=== PATIENT | female | born 1950 | race Caucasian/White ===

== ENCOUNTER → 2016-12-09 | Day surgery (SDC) | payer OTHER ==
[2016-11-19 12:24] VITALS: Ht 165.1 cm; Wt 59.1 kg
[~2016-12-09] VITALS: Ht 165.1 cm; Wt 59.1 kg
[~2016-12-09] MED LIST: 500ML BSS 0.3ML EPI 1:1000PF IRRIG ONE; ACETAMINOPHEN 325 MG TAB PO PRN; AMVISC PLUS 0.8ML SYRINGE INT OCU ONE; ASPI81TA28 PO; ATOR-22 PO; ATOR-24 PO; ATROPINE SULFATE 0.1 MG/ML 5ML SYR IV PRN; BSS FLUSH ONE; CALC500C70 PO; CLOP1TAB15 PO; EpHEDrine SULFATE INJ 50 MG/ML AMP IV PRN; EpINEphrine INJ 1MG/ML AMP 1 MG/ML AMP ONE; LACTATED RINGER'S 1000ML 500 ML IV SCH; LEVO50TA PO; LIDOCAINE 3.5% OPH GEL PER APPLICATION CHARGE ONE; LIDOCAINE HCL 1% MPF 2 ML VIAL ONE; LISI10TA PO; MIDAZOLAM HCL 1 MG/ML 2ML VIAL ONE; MULT-506 PO; OCUCOAT 1 ML SOLN IO ONE; OMEG10002 PO; PHENYLEPHRINE HCL 10% OP SOLN PER DROP CHARGE OPR SCH; POVIDONE-IODINE OP SOLN 30 ML BTL ONE; PRED1SUS3 OPR; PROPARACAINE 0.5% OP SOLN PER DROP CHARGE OPR SCH; SULF800T23 PO; TOBRAMYCIN/DEXAMETHASONE OPH OINT PER APPLN CHARGE ONE
[2016-12-09] MEDS: PHENYLEPHRINE HCL 2.5% OP SOLN PER DROP CHARGE OPR SCH ×2 (09:27→09:32)
[2016-12-09] MEDS: TROPICAMIDE 1% OP SOLN PER DROP CHARGE OPR SCH ×2 (09:28→09:33)
[2016-12-09] MEDS: CYCLOPENTOLATE HCL 1% OP SOLN PER DROP CHARGE OPR SCH ×2 (09:29→09:34)
[2016-12-09] MEDS: KETOROLAC 0.5% OP SOLN PER DROP CHARGE OPR SCH ×2 (09:30→09:35)
[2016-12-09] MEDS: GATIFLOXACIN OP SOLN PER DROP CHARGE OPR SCH ×2 (09:31→09:41)
--- NOTE | 2016-12-09 09:47 | History & Physical Bridge - [place] ---
H&P Re-Evaluation Bridge Note: I have examined the patient, reviewed the History & Physical and in the interval since the performance of the History & Physical I have noted the following changes of clinical significance: Diagnosis: Right Cataract Procedure: Right Cataract Removal with Lens Implant No changes noted
--- NOTE | 2016-12-09 10:29 | Discharge Instructions-SurgCtr ---
Discharge Instructions Date of Service Dec 09, 2016. Visit Reason for Visit: Right Cataract Discharge Discharge Diagnosis / Problem: cataract Discharge Goals Goal(s): Improve function Medications Stopped Medications Name(s): Patient is unsure of when she took her medications last but she did take them regularly yesterday morning. Activity Recommendations Activity Limitations: per Instructions/Follow-up section Anesthesia . Post Anesthesia Instructions: If you have had General Anesthesia or IV Sedation: * Do not drive today. * Resume driving when surgeon permits. * Do not make important decisions or sign legal documents today. * Call surgeon for: 1. Temperature elevations greater than 101 degrees F. 2. Uncontrollable pain. 3. Excessive bleeding. 4. Persistent nausea and vomiting. 5. Medication intolerance (nausea, vomiting or rash). * For nausea and vomiting use only clear liquids such as: tea, soda, bouillon until nausea subsides, then gradually increase diet as tolerated. * If you have any concerns or questions, call your surgeon's office. If physician is unavailable and it is an emergency, call 911 or go to the nearest emergency room. . Instructions / Follow-Up Instructions / Follow-Up ACTIVITY RECOMMENDATIONS: * No strenuous lifting, jogging or running for 4 days * No swimming or yard work for 1 week. * Limited bending is permitted, such as putting on shoes. RETURN TO SCHOOL/WORK: No work until seen by physician in office. MEDICATIONS: Resume previous medications unless instructed otherwise by your surgeon. This includes eye drops for glaucoma. Zymaxid/Gatifloxacin (andrew cap) - one drop every 2 hours until bedtime Nevanac/Ilevro/Prolensa/Ketorolac (reeder cap) - one drop every 4 hours until bedtime Prednisolone (white/pink cap, SHAKE WELL) - one drop every 2 hours until bedtime Starting tomorrow - all 3 drops every 4 hours until seen in the office Optive drops - as needed for discomfort SPECIAL CARE INSTRUCTIONS: * Wear eyeshield when sleeping, for four nights. * You may wear your own glasses or sunglasses while awake. * You may read or watch TV * You may shower and wash your face, but be gentle around the eye and pat dry. * Blurry vision and mild irritation are normal. * Call office if pain is more severe or vision becomes dark at . FOLLOW UP VISIT: Follow-up with Dr Escalona tomorrow. Diet Recommendations Home Diet: resume previous diet Procedures Procedures Performed: Right Cataract Phacoemulsification With Intraocular Lens Implant Pending Studies Studies pending at discharge: no Medical Emergencies . Who to Call and When: Medical Emergencies: If at any time you feel your situation is an emergency, please call 911 immediately. . Non-Emergent Contact Non-Emergency issues call your: Candle Pourer . . "Provider Documentation" section prepared by Maurisio Escalona.
--- NOTE | 2016-12-09 10:30 | [facility] Operative Report ---
Operative Report Date of Service Dec 09, 2016. Operative Report 1. PREOPERATIVE DIAGNOSIS: Cataract of the right eye. 2. POSTOPERATIVE DIAGNOSIS: Same. 3. PROCEDURE: Phacoemulsification with intraocular lens implantation of the right eye. SURGEON: Dr. Maurisio Escalona. ANESTHESIA: Topical Lidocaine gel, 1% Non- Preserved intracameral Lidocaine, and monitored intravenous sedation. INDICATIONS FOR THE PROCEDURE: The patient is a 66 - year-old female with a history of cataract of the right eye causing significant visual impairment. The details of the proposed procedure were explained to the patient who asked appropriate questions and following discussion of all risks, benefits and alternatives agreed to have the procedure done. 4. OPERATION AND FINDINGS: DESCRIPTION OF PROCEDURE: After informed consent was obtained, the patient was brought to the Operating Room at the [facility]. The patient was placed in a supine position and then the right eye was prepped and draped in the usual sterile fashion for intraocular surgery. A drop of topical Lidocaine gel was placed in the operative eye. A wire lid speculum was then placed in the fornices. A corneal paracentesis was then created temporally. The Non-Preserved Lidocaine was then instilled into the anterior chamber. The anterior chamber was then pressurized with viscoelastic. A 2.0 mm clear corneal incision was then created temporally. A cystotome was inserted into the anterior chamber and used to create a tear in the anterior lens capsule. This capsular tear was then used to create a small flap and the flap was dragged in a counterclockwise direction in order to create a continuous curvilinear capsulorrhexis. Hydrodissection was accomplished with balanced salt solution. Phacoemulsification of the lens nucleus was then performed in a standard [id number] technique. The phaco time was 18 seconds with an average power of 15 %. The remaining cortical material was removed using irrigation aspiration. The capsular bag was then filled with viscoelastic. A Bausch & Lomb MI60L +24.5 diopters lens was then loaded into the injector and injected into the capsular bag. The remaining viscoelastic was removed with the irrigation aspiration handpiece. The wound was hydrated and then checked and found to be watertight. The intraocular pressure was checked and found to be adequate. The wire lid speculum was removed and the patient's face was cleaned and dried. TobraDex ointment was placed in the inferior fornix. The patient was discharged to the Recovery Room having tolerated the procedure well. There were no complications. The patient will be seen tomorrow in the office for follow-up. I attest to the content of the Intraoperative Record and any orders documented therein. Any exceptions are noted below.
[2016-12-09 10:33] VITALS: TEMP 36.6
--- NOTE | 2016-12-09 10:52 | Anesthesia Progress Nt - [facility] ---
Anesthesia Post Op Note Date & Time Dec 09, 2016 at 10:51 Vital Signs Pain Intensity: 0 Vital Signs Past 12 Hours Date Time Temp Pulse Resp B/P Pulse Ox O2 Delivery O2 Flow Rate FiO2 12/09/16 10:33 36.6 64 16 129/82 100 Room Air 12/09/16 09:17 36.5 68 18 141/87 97 Room Air Notes Mental Status: alert / awake / arousable, participated in evaluation Pt Amnestic to Procedure: Yes Nausea / Vomiting: adequately controlled Pain: adequately controlled Airway Patency, RR, SpO2: stable & adequate BP & HR: stable & adequate Hydration State: stable & adequate Anesthetic Complications: no major complications apparent
[2016-12-09 10:56] VITALS: BP 135/80; PULSE 70; O2SAT 96
== END | disposition home or self-care (01) ==
LOC: X.SURG 08:54
PROVIDERS: ATTEND Ophthalmology
DX: H26.9 Unspecified cataract (principal); Z79.02 Long term (current) use of antithrombotics/antiplatelets; Z79.82 Long term (current) use of aspirin; Z79.899 Other long term (current) drug therapy; I10 Essential (primary) hypertension; E78.00 Pure hypercholesterolemia, unspecified; C91.01 Acute lymphoblastic leukemia, in remission; Z86.73 Personal history of transient ischemic attack (TIA), and cerebral infarction without residual deficits

== ENCOUNTER → 2017-01-06 | Day surgery (SDC) | payer OTHER ==
[2016-12-21 08:20] VITALS: Ht 165.1 cm; Wt 59.1 kg
[~2017-01-06] VITALS: Ht 165.1 cm; Wt 59.1 kg
[~2017-01-06] MED LIST changes: +FENTANYL CITRATE INJ 50 MCG/1 ML 2 ML VIAL IV PRN; +FLUMAZENIL 0.1 MG/1 ML 10 ML VIAL IV PRN; +HYDROmorphone INJ 2 MG/ML SYR/VIAL IV PRN; +LABETALOL HCL IV 5 MG/ML 20ML IV PRN; +MEPERIDINE HCL 25 MG/ML CARP IV PRN; +NALOXONE HCL 0.4 MG/1 ML VIAL/CARP IV PRN; +ONDANSETRON INJ 2 MG/ML 2 ML VIAL IV PRN; +PHENYLEPHRINE 100MCG/ML 5ML SYR IV PRN; -PHENYLEPHRINE HCL 10% OP SOLN PER DROP CHARGE OPR SCH; +PROPARACAINE 0.5% OP SOLN PER DROP CHARGE OPL SCH; -PROPARACAINE 0.5% OP SOLN PER DROP CHARGE OPR SCH
[2017-01-06] MEDS: PHENYLEPHRINE HCL 2.5% OP SOLN PER DROP CHARGE OPL SCH ×2 (09:15→09:20)
[2017-01-06] MEDS: TROPICAMIDE 1% OP SOLN PER DROP CHARGE OPL SCH ×2 (09:16→09:21)
[2017-01-06] MEDS: CYCLOPENTOLATE HCL 1% OP SOLN PER DROP CHARGE OPL SCH ×2 (09:17→09:22)
[2017-01-06] MEDS: KETOROLAC 0.5% OP SOLN PER DROP CHARGE OPL SCH ×2 (09:18→09:23)
[2017-01-06] MEDS: GATIFLOXACIN OP SOLN PER DROP CHARGE OPL SCH ×2 (09:19→09:29)
--- NOTE | 2017-01-06 09:40 | History & Physical Bridge - [place] ---
H&P Re-Evaluation Bridge Note: I have examined the patient, reviewed the History & Physical and in the interval since the performance of the History & Physical I have noted the following changes of clinical significance: Diagnosis: Left Cataract Procedure: Left Cataract Removal with Lens Implant No changes noted
--- NOTE | 2017-01-06 10:24 | Discharge Instructions-SurgCtr ---
Discharge Instructions Date of Service January 06, 2017. Visit Reason for Visit: Cataract Left Eye Discharge Discharge Diagnosis / Problem: cataract Discharge Goals Goal(s): Improve function Activity Recommendations Activity Limitations: per Instructions/Follow-up section Anesthesia . Post Anesthesia Instructions: If you have had General Anesthesia or IV Sedation: * Do not drive today. * Resume driving when surgeon permits. * Do not make important decisions or sign legal documents today. * Call surgeon for: 1. Temperature elevations greater than 101 degrees F. 2. Uncontrollable pain. 3. Excessive bleeding. 4. Persistent nausea and vomiting. 5. Medication intolerance (nausea, vomiting or rash). * For nausea and vomiting use only clear liquids such as: tea, soda, bouillon until nausea subsides, then gradually increase diet as tolerated. * If you have any concerns or questions, call your surgeon's office. If physician is unavailable and it is an emergency, call 911 or go to the nearest emergency room. . Instructions / Follow-Up Instructions / Follow-Up ACTIVITY RECOMMENDATIONS: * No strenuous lifting, jogging or running for 4 days * No swimming or yard work for 1 week. * Limited bending is permitted, such as putting on shoes. RETURN TO SCHOOL/WORK: No work until seen by physician in office. MEDICATIONS: Resume previous medications unless instructed otherwise by your surgeon. This includes eye drops for glaucoma. Zymaxid/Gatifloxacin (andrew cap) - one drop every 2 hours until bedtime Nevanac/Ilevro/Prolensa/Ketorolac (reeder cap) - one drop every 4 hours until bedtime Prednisolone (white/pink cap, SHAKE WELL) - one drop every 2 hours until bedtime Starting tomorrow - all 3 drops every 4 hours until seen in the office Optive drops - as needed for discomfort SPECIAL CARE INSTRUCTIONS: * Wear eyeshield when sleeping, for four nights. * You may wear your own glasses or sunglasses while awake. * You may read or watch TV * You may shower and wash your face, but be gentle around the eye and pat dry. * Blurry vision and mild irritation are normal. * Call office if pain is more severe or vision becomes dark at . FOLLOW UP VISIT: Follow-up with Dr Escalona tomorrow. Diet Recommendations Home Diet: resume previous diet Procedures Procedures Performed: Left Cataract Phacoemulsification With Intraocular Lens Implant Pending Studies Studies pending at discharge: no Medical Emergencies . Who to Call and When: Medical Emergencies: If at any time you feel your situation is an emergency, please call 911 immediately. . Non-Emergent Contact Non-Emergency issues call your: Principal Research Economist . . "Provider Documentation" section prepared by Maurisio Escalona. .
--- NOTE | 2017-01-06 10:25 | [facility] Operative Report ---
Operative Report Date of Service January 06, 2017. Operative Report 1. PREOPERATIVE DIAGNOSIS: Cataract of the left eye. 2. POSTOPERATIVE DIAGNOSIS: Same. 3. PROCEDURE: Phacoemulsification with intraocular lens implantation of the left eye. SURGEON: Dr. Maurisio Escalona. ANESTHESIA: Topical Lidocaine gel, 1% Non- Preserved intracameral Lidocaine, and monitored intravenous sedation. INDICATIONS FOR THE PROCEDURE: The patient is a 66 - year-old female with a history of cataract of the left eye causing significant visual impairment. The details of the proposed procedure were explained to the patient who asked appropriate questions and following discussion of all risks, benefits and alternatives agreed to have the procedure done. 4. OPERATION AND FINDINGS: DESCRIPTION OF PROCEDURE: After informed consent was obtained, the patient was brought to the Operating Room at the [facility]. The patient was placed in a supine position and then the left eye was prepped and draped in the usual sterile fashion for intraocular surgery. A drop of topical Lidocaine gel was placed in the operative eye. A wire lid speculum was then placed in the fornices. A corneal paracentesis was then created temporally. The Non-Preserved Lidocaine was then instilled into the anterior chamber. The anterior chamber was then pressurized with viscoelastic. A 2.0 mm clear corneal incision was then created temporally. A cystotome was inserted into the anterior chamber and used to create a tear in the anterior lens capsule. This capsular tear was then used to create a small flap and the flap was dragged in a counterclockwise direction in order to create a continuous curvilinear capsulorrhexis. Hydrodissection was accomplished with balanced salt solution. Phacoemulsification of the lens nucleus was then performed in a standard [id number] technique. The phaco time was 17 seconds with an average power of 16 %. The remaining cortical material was removed using irrigation aspiration. The capsular bag was then filled with viscoelastic. A Bausch & Lomb MI60L +26.0 diopters lens was then loaded into the injector and injected into the capsular bag. The remaining viscoelastic was removed with the irrigation aspiration handpiece. The wound was hydrated and then checked and found to be watertight. The intraocular pressure was checked and found to be adequate. The wire lid speculum was removed and the patient's face was cleaned and dried. TobraDex ointment was placed in the inferior fornix. The patient was discharged to the Recovery Room having tolerated the procedure well. There were no complications. The patient will be seen tomorrow in the office for follow-up. I attest to the content of the Intraoperative Record and any orders documented therein. Any exceptions are noted below.
[2017-01-06 10:26] VITALS: TEMP 36.5
--- NOTE | 2017-01-06 10:44 | Anesthesia Progress Nt - [facility] ---
Anesthesia Post Op Note Date & Time January 06, 2017 at 10:44 Vital Signs Pain Intensity: 0 Vital Signs Past 12 Hours Date Time Temp Pulse Resp B/P Pulse Ox O2 Delivery O2 Flow Rate FiO2 01/06/17 10:26 36.5 64 16 118/78 100 Room Air 01/06/17 09:24 36.4 69 16 148/81 95 Room Air Notes Mental Status: alert / awake / arousable, participated in evaluation Pt Amnestic to Procedure: Yes Nausea / Vomiting: adequately controlled Pain: adequately controlled Airway Patency, RR, SpO2: stable & adequate BP & HR: stable & adequate Hydration State: stable & adequate Anesthetic Complications: no major complications apparent
[2017-01-06 11:00] VITALS: BP 120/75; PULSE 66; O2SAT 99
== END | disposition home or self-care (01) ==
LOC: X.SURG 08:40
PROVIDERS: ATTEND Ophthalmology
DX: H25.9 Unspecified age-related cataract (principal); C91.01 Acute lymphoblastic leukemia, in remission; I12.9 Hypertensive chronic kidney disease with stage 1 through stage 4 chronic kidney disease, or unspecified chronic kidney disease; N18.3 Chronic kidney disease, stage 3 (moderate); E03.9 Hypothyroidism, unspecified; J31.0 Chronic rhinitis; I87.2 Venous insufficiency (chronic) (peripheral); I69.398 Other sequelae of cerebral infarction; Z87.39 Personal history of other diseases of the musculoskeletal system and connective tissue; Z79.02 Long term (current) use of antithrombotics/antiplatelets; Z79.82 Long term (current) use of aspirin; Z79.899 Other long term (current) drug therapy

== ENCOUNTER 2017-02-10 00:44 | Emergency (ER) | payer OTHER ==
[~2017-02-10] VITALS: Ht 165.1 cm; Wt 59.0 kg
[~2017-02-10 00:44] MED LIST changes: -500ML BSS 0.3ML EPI 1:1000PF IRRIG ONE; -ACETAMINOPHEN 325 MG TAB PO PRN; -AMVISC PLUS 0.8ML SYRINGE INT OCU ONE; -ATOR-24 PO; -ATROPINE SULFATE 0.1 MG/ML 5ML SYR IV PRN; -BSS FLUSH ONE; -EpHEDrine SULFATE INJ 50 MG/ML AMP IV PRN; -EpINEphrine INJ 1MG/ML AMP 1 MG/ML AMP ONE; -FENTANYL CITRATE INJ 50 MCG/1 ML 2 ML VIAL IV PRN; -FLUMAZENIL 0.1 MG/1 ML 10 ML VIAL IV PRN; -HYDROmorphone INJ 2 MG/ML SYR/VIAL IV PRN; -LABETALOL HCL IV 5 MG/ML 20ML IV PRN; -LACTATED RINGER'S 1000ML 500 ML IV SCH; -LIDOCAINE 3.5% OPH GEL PER APPLICATION CHARGE ONE; -LIDOCAINE HCL 1% MPF 2 ML VIAL ONE; -MEPERIDINE HCL 25 MG/ML CARP IV PRN; -MIDAZOLAM HCL 1 MG/ML 2ML VIAL ONE; -NALOXONE HCL 0.4 MG/1 ML VIAL/CARP IV PRN; -OCUCOAT 1 ML SOLN IO ONE; -ONDANSETRON INJ 2 MG/ML 2 ML VIAL IV PRN; -PHENYLEPHRINE 100MCG/ML 5ML SYR IV PRN; -POVIDONE-IODINE OP SOLN 30 ML BTL ONE; -PROPARACAINE 0.5% OP SOLN PER DROP CHARGE OPL SCH; -SULF800T23 PO; -TOBRAMYCIN/DEXAMETHASONE OPH OINT PER APPLN CHARGE ONE
[2017-02-10 00:48] VITALS: TEMP 37.1; Ht 165.1 cm; Wt 59.0 kg
[2017-02-10] MEDS ORDERED: SODIUM CHLORIDE 0.9% 500ML 500 ML IV STA (01:11)
[2017-02-10] MEDS ORDERED: ACETAMINOPHEN 500 MG TAB PO STA (01:11)
[2017-02-10 01:49] LABS: BASO % 0.3 %; BASO ABS # 0.02 K/uL (0-0.2); COMPLETE YES; EOS % 2.1 %; HEMATOCRIT 35.8 % (37-47); IG% 0.2 %; LYMPH % 16.9 %; MEAN CELL VOLUME 89.7 fL (80-100); MEAN CORPUSCULAR HEMOGLOBIN 30.1 pg (25-34); MEAN CORPUSCULAR HGB CONC 33.5 g/dl (32-36); MEAN PLATELET VOLUME 8.8 fL (7.4-10.4); MONO % 13.5 %; PLATELET COUNT 258 K/uL (130-400); RED BLOOD COUNT 3.99 M/uL (4.2-5.4); WHITE BLOOD COUNT 6.52 K/uL (4.8-10.8)
[2017-02-10 01:58] LABS: VEN BLD GAS O2 SATURATION 93.8 %; VEN BLOOD GAS BASE EXCESS 1.7 mmol/L
[2017-02-10] MEDS ORDERED: ATOR-24 PO (02:06)
[2017-02-10 02:08] LABS: BUN/CREATININE RATIO 30.5 (10-20); CREATININE 1.2 mg/dl (0.60-1.20); MAGNESIUM 2.1 mg/dl (1.8-2.4); POTASSIUM 3.9 mmol/L (3.5-5.1)
[2017-02-10 03:24] VITALS: O2SAT 93
--- NOTE | 2017-02-10 03:39 | EMERGENCY ROOM VISIT NOTE ---
ED Visit Note First contact with patient: 00:57 I saw this patient in conjunction with Michael Alcala PA-C. I agree with his decision making and treatment plan.
[2017-02-10 04:11] LABS: URINE APPEARANCE CLOUDY (CLEAR); URINE BILIRUBIN NEG (NEG); URINE COLOR YELLOW; URINE EPITHELIAL CELL AUTO 0-5 /lpf (0-5); URINE NITRITE POS (NEG); URINE SPECIFIC GRAVITY 1.019 (1.000-1.030); UROBILINOGEN NEG (NEG); ZZUR CULT IF INDIC CLEAN CATCH YES
[2017-02-10 04:14] LABS: MANUAL MICROSCOPIC REQUIRED? NO; REVIEW REQ? YES
[2017-02-10] MEDS ORDERED: SEPTRA DS HOME PACK 1 EA VIAL PO ONE (04:45)
[2017-02-10] MEDS ORDERED: SULF800T23 PO (04:50)
[2017-02-10 05:05] VITALS: BP 106/64; PULSE 67; O2SAT 93
--- NOTE | 2017-02-10 05:24 | EMERGENCY ROOM VISIT NOTE ---
History First contact with patient: 00:57 Chief Complaint: ALTERED MENTAL STATUS Stated Complaint: DISOREINTED, CONFUSED Nursing Triage Summary: states developed a cough and sore throat last evening, and developed progressive weakness today. History of Present Illness The patient is a 66 year old female who presents to the Emergency Room with complaints of worsening weakness and fatigue over the past one day. The patient is accompanied by her who provides most of the history. The patient was at her normal state of health the past several days, but developed a cough and sore throat. She has not been running a fever. She has been eating and drinking as normal. She does not report changes in bathroom usage. The patient is usually healthy and denies diabetes and cardiopulmonary disease. She rates her current discomfort a 2/10, and states that she is here because her was going to call an ambulance. She does not report numbness or paresthesias. No lightheadedness or dizziness. Review of Systems More than 10 systems were reviewed and otherwise negative with the exception of history of present illness. Past Medical/Surgical History Medical Problems: (1) Benign hypertension (2) Cerebrovascular disease (3) Dementia (4) History of acute lymphoid leukemia (5) History of adenomatous polyp of colon (6) History of TIA (transient ischemic attack) (7) Meningioma Surgical Problems: (1) Status post bilateral hip replacements Family History Cancer Hypertension Social History Smoking Status: Never Smoker Alcohol Use: none Drug Use: none Marital Status: Housing Status: lives with family Occupation Status: employed Current/Historical Medications Scheduled Aspirin (Aspirin Ec), 81 MG PO QAM Atorvastatin (Lipitor), 40 MG PO DAILY Calcium/Vitamin D (Os-Tobias 500 Plus D), 1 TAB PO QAM Clopidogrel (Plavix), 75 MG PO QAM Levothyroxine Sodium (Synthroid), 50 MCG PO QAM Lisinopril (Prinivil), 10 MG PO QAM Multivitamin (Multivitamin), 1 TAB PO QAM [place]-3 Fatty Acids (Fish Oil), 1,000 MG PO BID Sulfa/Trimethoprim (Bactrim Ds 800MG/160MG), 1 TAB PO BID Allergies Coded Allergies: Latex1 -Allergic Contact Dermititis (Verified Allergy, Unknown, RASH, 01/06) NO KNOWN DRUG ALLERGIES (Verified Allergy, Unknown, ., 01/06/17) Physical Exam Vital Signs Date Time Temp Pulse Resp B/P (MAP) Pulse Ox O2 Delivery O2 Flow Rate FiO2 02/10/17 04:10 72 94 Room Air 02/10/17 04:06 64 16 130/70 93 Room Air 02/10/17 03:24 93 Nasal Cannula 2.0 02/10/17 03:23 87 Room Air 02/10/17 03:01 67 19 115/65 90 Room Air 02/10/17 02:00 72 16 118/71 92 Room Air 02/10/17 01:40 98 Nasal Cannula 02/10/17 00:55 90 02/10/17 00:50 80 18 87 Room Air 02/10/17 00:48 37.1 88 20 127/78 93 Room Air Physical Exam VITALS: Vitals are noted on the nurse's note and reviewed by myself. Vital signs stable. GENERAL: Well-developed, well-nourished, elderly appearing white female, who is in no acute distress and resting comfortably. Patient is cooperative with the examination. GCS 15 HEAD: Normocephalic atraumatic. HEART: Regular rate and rhythm with systolic murmur LUNGS: Clear to auscultation bilaterally without wheezes, rales or rhonchi. No retractions or accessory muscle use. ABDOMEN: Positive normal bowel sounds x 4. Soft, nontender, without masses or organomegaly. No guarding or rebound tenderness. No CVA tenderness MUSCULOSKELETAL: No muscle atrophy, erythema, or edema noted. Full range of motion without joint tenderness in all extremities. No tenderness to palpation. Normal gait. Strength 5/5 throughout. NEURO: Patient was alert and oriented to person place and time. CN II through XII grossly intact. No focal neurological deficits SKIN: The skin was without rashes, erythema, edema, or bruising. Capillary reflex less than 2 seconds. Medical Decision & Procedures ER Provider Diagnostic Interpretation: Preliminary Findings Only See Final Report For Complete Findings CT HEAD: Compared with 05/15/15 No acute intracranial abnormality. Old left centrum semiovale white matter infarct. Old small left basal ganglia lacunar infarct. Senescent white matter changes. Visualized paranasal sinuses and mastoid air cells are clear. Laboratory Results 02/10/17 01:34 Red Blood Count 3.99, Mean Corpuscular Volume 89.7, Mean Corpuscular Hemoglobin 30.1, Mean Corpuscular Hemoglobin Concent 33.5, Mean Platelet Volume 8.8, Neutrophils (%) (Auto) 67.0, Lymphocytes (%) (Auto) 16.9, Monocytes (%) (Auto) 13.5, Eosinophils (%) (Auto) 2.1, Basophils (%) (Auto) 0.3, Neutrophils # (Auto ) 4.37, Lymphocytes # (Auto) 1.10, Monocytes # (Auto) 0.88, Eosinophils # (Auto ) 0.14, Basophils # (Auto) 0.02 02/10/17 01:34 Test 02/10/17 01:34 02/10/17 01:42 02/10/17 01:43 02/10/17 04:00 White Blood Count 6.52 K/uL (4.8-10.8) Red Blood Count 3.99 M/uL (4.2-5.4) Hemoglobin 12.0 g/dL (12.0-16.0) Hematocrit 35.8 % (37-47) Mean Corpuscular Volume 89.7 fL (80-100) Mean Corpuscular Hemoglobin 30.1 pg (25-34) Mean Corpuscular Hemoglobin Concent 33.5 g/dl (32-36) Platelet Count 258 K/uL (130-400) Mean Platelet Volume 8.8 fL (7.4-10.4) Neutrophils (%) (Auto) 67.0 % Lymphocytes (%) (Auto) 16.9 % Monocytes (%) (Auto) 13.5 % Eosinophils (%) (Auto) 2.1 % Basophils (%) (Auto) 0.3 % Neutrophils # (Auto) 4.37 K/uL (1.4-6.5) Lymphocytes # (Auto) 1.10 K/uL (1.2-3.4) Monocytes # (Auto) 0.88 K/uL (0.11-0.59) Eosinophils # (Auto) 0.14 K/uL (0-0.5) Basophils # (Auto) 0.02 K/uL (0-0.2) RDW Standard Deviation 46.2 fL (36.4-46.3) RDW Coefficient of Variation 13.8 % (11.5-14.5) Immature Granulocyte % (Auto) 0.2 % Immature Granulocyte # (Auto) 0.01 K/uL (0.00-0.02) Venous Blood pH 7.45 (7.36-7.41) Venous Blood Partial Pressure CO2 37 mmHg (38.0-50.0) Venous Blood Partial Pressure O2 72 mmHg Venous Blood HCO3 26 mmol/L Venous Blood Oxygen Saturation 93.8 % Venous Blood Base Excess 1.7 mmol/L Anion Gap 8.0 mmol/L (3-11) Est Creatinine Clear Calc Drug Dose 40.4 ml/min Estimated GFR () 53.8 Estimated GFR (Non- 46.4 BUN/Creatinine Ratio 30.5 (10-20) Calcium Level 9.0 mg/dl (8.5-10.1) Magnesium Level 2.1 mg/dl (1.8-2.4) Total Bilirubin 0.4 mg/dl (0.2-1) Aspartate Amino Transf (AST/SGOT) 24 U/L (15-37) Alanine Aminotransferase (ALT/SGPT) 26 U/L (12-78) Alkaline Phosphatase 70 U/L (45-117) Pro-B-Type Natriuretic Peptide 468 pg/ml (0-900) Total Protein 7.3 gm/dl (6.4-8.2) Albumin 3.6 gm/dl (3.4-5.0) Globulin 3.7 gm/dl (2.5-4.0) Albumin/Globulin Ratio 1.0 (0.9-2) Bedside Troponin I < 0.030 ng/ml (0-0.045) Bedside Lactic Acid Venous 0.52 mmol/L (0.90-1.70) Urine Color YELLOW Urine Appearance CLOUDY (CLEAR) Urine pH 5.0 (4.5-7.5) Urine Specific [place] 1.019 (1.000-1.030) Urine Protein NEG (NEG) Urine Glucose (UA) NEG (NEG) Urine Ketones NEG (NEG) Urine Occult Blood 2+ (NEG) Urine Nitrite POS (NEG) Urine Bilirubin NEG (NEG) Urine Urobilinogen NEG (NEG) Urine Leukocyte Esterase LARGE (NEG) Urine WBC (Auto) >30 /hpf (0-5) Urine RBC (Auto) 5-10 /hpf (0-4) Urine Hyaline Casts (Auto) 0 /lpf (0-5) Urine Epithelial Cells (Auto) 0-5 /lpf (0-5) Urine Bacteria (Auto) 4+ (NEG) Urine Pathogenic Casts /lpf (0) Medications Administered Medications (Trade) Dose Ordered Sig/Jaziel Route Start Time Stop Time Status Last Admin Dose Admin Sodium Chloride 500 ml @ 999 mls/hr Q31M STAT IV 02/10/17 01:11 02/10/17 01:41 DC 02/10/17 01:36 999 MLS/HR Acetaminophen (Tylenol Tab) 1,000 mg NOW STAT PO 02/10/17 01:11 02/10/17 01:14 DC 02/10/17 01:35 1,000 MG ED Course Physical exam and history were performed. Nursing notes and EMR were reviewed. Patient appears to have worsening weakness over the past one day. The is concerned that may be an element of altered mental status as well. On exam the patient does not appear toxic. IV access was established and labs were obtained. The patient was gently hydrated with normal saline and given oral Tylenol. CT scan of the head was also performed. The patient did have a brief episode where her pulse ox did go down to 87% on room air during her EKG, but this quickly corrected when placed in a different position. EKG was normal sinus rhythm at [address] elevation or evidence of ischemia. EKG is essentially unchanged when compared with EKG of 05/15/2015. The patient was placed on the caseworker intake. The patient was reevaluated multiple times with course of her stay. Her blood work is as above and was reviewed. She does not have a significantly elevated white blood cell count, gross anemia, bandemia, or significant electrolyte imbalance. Troponin 1 is negative. VBG's were not diagnostic. Lactic acid is negative with blood cultures [address] scan of the head did not show acute intracranial abnormality. The patient's urine was highly concerning for UTI. We did have the patient perform an ambulatory pulse ox, and she remained at 94% while doing this. The case was discussed with my attending physician, Dr. Navarro, who also independently evaluated the patient. We feel the patient is well for discharge home and will be treated for a UTI. This is the likely cause of her symptoms. The patient will be started on Bactrim here in the department and given a continuation course of the medication. I recommend close follow-up with the primary care physician, and would like her to be seen tomorrow for a recheck. The patient certainly invited back to the emergency department with any new, worsening, or concerning symptoms. The patient was pleased with this and voiced understanding. She rated her discomfort a 0/10 at the time of departure. The chart was completed utilizing [employer] Speech Voice Recognition Software. Grammatical errors, random word insertions, pronoun errors, and incomplete sentences are an occasional consequence of this system due to software limitations, ambient noise, and hardware issues. Any formal questions or concerns about the content, text, or information contained within the body of this dictation should be directly addressed to the provider for clarification. . Medical Decision Differential diagnosis: Etiologies such as metabolic, infection, hypo/hyperglycemia, electrolyte abnormalities, cardiac sources, intracerebral event, toxicologic, neurologic, as well as others were entertained. Impression Primary Impression: Urinary tract infection Departure Information Dispostion Home / Self-Care Condition GOOD Prescriptions Sulfa/Trimethoprim (Bactrim Ds 800MG/160MG) Tab 1 TAB PO BID for 9 Days, #18 TAB Prov: Michael Alcala PA-C 02/10/17 Referrals Max Pendleton, D.OJason (PCP) Forms HOME CARE DOCUMENTATION FORM, IMPORTANT VISIT INFORMATION Patient Instructions My [facility] Additional Instructions You were seen and evaluated today on an emergency basis only. This is not a substitute for, or an effort to provide, complete comprehensive medical care. It is not possible to recognize and treat all injuries or illnesses in a single emergency department visit. For this reason it is recommended that you followup with your primary care physician's office tomorrow for ongoing care and evaluation. Trimethoprim-Sulfamethoxazole(Bactrim DS): Take one pill twice daily for 10 total days for your urine infection. All antibiotics can cause diarrhea. If this occurs and you feel worse or it does not resolve in 1-2 days follow up with your doctor or return to the Emergency Department as this could be signs of serious underlying problems. Any medication can cause an allergic reaction, stop the pills immediately and return to the ER for rash, hives, breathing difficulties, or swelling. You are welcome to return to the emergency department anytime with new, worsening, or concerning symptoms.
--- NOTE | 2017-02-10 06:37 | DIAGNOSTIC IMAGING REPORT ---
CT HEAD WITHOUT CONTRAST (CT) CLINICAL HISTORY: Confusion, disorientation. COMPARISON STUDY: 05/15/2015 TECHNIQUE: Axial CT of the brain is performed from the vertex to the skull base. IV contrast was not administered for this examination. CT DOSE: 638.56 mGycm FINDINGS: No intra or extra-axial mass lesions are visualized. There is no CT evidence of acute cortical infarction. There is no evidence of midline shift. There is no acute hemorrhage. No calvarial fractures are visualized. There are patchy white matter hypodensities likely on a small vessel basis. There is an area of encephalomalacia within the left centrum semiovale, unchanged the prior study. This likely represents a prior infarct. There is a stable left basal ganglial infarct versus dilated perivascular space. There is a heterogeneous trabecular pattern of the calvarium, unchanged from the prior study. There is no evidence of pathologic ventricular dilatation. There is no evidence of acute sinusitis IMPRESSION: No acute intracranial findings Electronically signed by: Franco Luna M.D. 02/10/2017 6:36 AM Dictated Date/Time: 02/10/2017 6:34 AM
--- NOTE | 2017-02-10 07:19 | DIAGNOSTIC IMAGING REPORT ---
CHEST ONE VIEW PORTABLE CLINICAL HISTORY: Hypoxia COMPARISON STUDY: 01/25/2014 FINDINGS: The heart is within normal limits in size given the AP technique. There is no focal pulmonary consolidation. There is no failure. There are no pleural effusions. There is minor basilar atelectatic change. An opacity adjacent to the left heart border is felt to represent a summation. IMPRESSION: AP portable study. No acute findings. Electronically signed by: Franco Luna M.D. 02/10/2017 7:17 AM Dictated Date/Time: 02/10/2017 7:16 AM
--- NOTE | 2017-02-15 12:51 | Pharmacy Progress Note ---
ED Pharmacist Culture FollowUp Date of Service: Feb 15, 2017. Patient was sent home with a prescription for Bactrim, which should cover the E. coli growing from the patient's urine culture. Coag negative Staph isolated in 1 of 2 blood cultures obtained 02/10. 2nd blood culture finalized as no growth. RN called patient 02/12 - patient reports feeling much better. Coag negative Staph is likely a contaminant. No further intervention required at this time. Case discussed with Dr. Smyth.
== END 2017-02-10 05:07 | disposition home or self-care (01) ==
LOC: C.EDB 00:46 → C.EDA 05:07
DX: N39.0 Urinary tract infection, site not specified (principal); I10 Essential (primary) hypertension; F03.90 Unspecified dementia, unspecified severity, without behavioral disturbance, psychotic disturbance, mood disturbance, and anxiety; Z86.73 Personal history of transient ischemic attack (TIA), and cerebral infarction without residual deficits; Z96.643 Presence of artificial hip joint, bilateral; Z79.82 Long term (current) use of aspirin; Z79.899 Other long term (current) drug therapy; Z91.040 Latex allergy status; Z80.9 Family history of malignant neoplasm, unspecified; Z82.49 Family history of ischemic heart disease and other diseases of the circulatory system

== ENCOUNTER → 2017-02-24 | Outpatient (CLI) | payer OTHER ==
[~2017-02-24] MED LIST changes: -ATOR-22 PO; +ATOR-24 PO; -PRED1SUS3 OPR
--- NOTE | 2017-02-25 12:30 | MAMMOGRAPHY REPORT ---
BILATERAL DIGITAL SCREENING MAMMOGRAM WITH CAD: 02/24/2017 CLINICAL HISTORY: Routine screening. TECHNIQUE: Current study was also evaluated with a Computer Aided Detection (CAD) system. Bilateral CC and MLO views were obtained. COMPARISON: Comparison is made to exams dated: 02/10/2016 mammogram, 02/07/2015 mammogram, 02/06/2014 m ammogram, 02/13/2013 mammogram, 02/05/2013 mammogram, and 01/31/2012 mammogram - [facility] nter. BREAST COMPOSITION: There are scattered areas of fibroglandular density in both breasts. FINDINGS: No suspicious masses, calcifications, or areas of architectural distortion are noted in ei ther breast. There has been no significant interval change compared to prior exams. Scattered bilate ral benign-appearing calcifications are not significantly changed. A linear scar marker denotes a sc ar on the left upper outer breast. IMPRESSION: ACR BI-RADS CATEGORY 2: BENIGN There is no mammographic evidence of malignancy. A 1 year screening mammogram is recommended. The pa tient will receive written notification of the results. Approximately 10% of breast cancers are not detected with mammography. A negative mammographic report should not delay biopsy if a clinically suggestive mass is present. Marilou Casey M.D. /:02/24/2017 14:51:08 [employer] Production Machine Operator: Anel LOMELI)(M), [facility] letter sent: Normal 1/2 BI-RADS Code: ACR BI-RADS Category 2: Benign
== END | disposition home or self-care (01) ==
LOC: C.MAMM 13:05
PROVIDERS: ATTEND Family Medicine
DX: Z12.31 Encounter for screening mammogram for malignant neoplasm of breast (principal)

== ENCOUNTER 2017-09-04 15:32 | Inpatient (IN) | payer OTHER ==
[~2017-09-04] VITALS: Ht 165.1 cm; Wt 57.7 kg
--- NOTE | 2017-09-04 16:15 | EMERGENCY ROOM VISIT NOTE ---
History Report prepared by Britt: Billy Bradford Under the Supervision of: Dr. Nathan Sosa M.D. First contact with patient: 15:43 Chief Complaint: DIZZY Stated Complaint: NEAR SYNCOPE, Nursing Triage Summary: PT ARRIVES Via EMS reports while standing in gymnasium watching basketball game became dizzy , nauseated and diaphoretic had a syncopal episode and was loweered to the ground , + incontinent of urine pt reports hx of TIA History of Present Illness The patient is a 67 year old white female with a past medical history of HTN, cerebrovascular disease, dementia, acute lymphoid leukemia, TIA, Meningioma, bilateral hip replacement, who presents to the ED with a cc of a resolved syncopal episode that occurred prior to arrival. Pt was watching a wrestling match and became lightheaded. She states the lightheadedness grew, and she had to sit down. Positive stiffness, clammy, incontinent of urine. Negative standing for a long time in one spot, convulsions, biting tongue, heart racing, chest pain, shortness of breath, numbness, tingling, weakness, weight loss, a history of seizures. Pt takes aspirin and Plavix. 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 A total of ten systems were reviewed and were otherwise negative. Past Medical & Surgical Medical Problems: (1) Benign hypertension (2) Cerebrovascular disease (3) Dementia (4) History of acute lymphoid leukemia (5) History of adenomatous polyp of colon (6) History of TIA (transient ischemic attack) (7) Meningioma Surgical Problems: (1) Status post bilateral hip replacements Family History Cancer Hypertension Social History Smoking Status: Never Smoker Alcohol Use: none Drug Use: none Marital Status: Housing Status: lives with family Occupation Status: employed Current/Historical Medications Scheduled Aspirin (Aspirin Ec), 81 MG PO QAM Atorvastatin (Lipitor), 40 MG PO DAILY Calcium/Vitamin D (Os-Tobias 500 Plus D), 1 TAB PO QAM Clopidogrel (Plavix), 75 MG PO QAM Levothyroxine Sodium (Synthroid), 50 MCG PO QAM Lisinopril (Prinivil), 10 MG PO QAM Multivitamin (Multivitamin), 1 TAB PO QAM [place]-3 Fatty Acids (Fish Oil), 1,000 MG PO BID Allergies Coded Allergies: Latex1 -Allergic Contact Dermititis (Verified Allergy, Unknown, RASH, ) NO KNOWN DRUG ALLERGIES (Verified Allergy, Unknown, ., 01/06/17) Physical Exam Vital Signs Date Time Temp Pulse Resp B/P (MAP) Pulse Ox O2 Delivery O2 Flow Rate FiO2 09/04/17 16:50 78 20 145/80 98 Room Air 09/04/17 16:27 71 09/04/17 16:00 99 Room Air 09/04/17 15:45 36.6 71 20 125/65 98 Room Air Physical Exam GENERAL: Awake, alert, well-appearing, NAD HENT: Normocephalic, atraumatic. EYES: Normal conjunctiva. Sclera non-icteric. NECK: Supple. No nuchal rigidity. FROM. RESPIRATORY: CTAB, no rhonchi, wheezing, crackles CARDIAC: RRR, no MRG ABDOMEN: Soft, NTND, BS+ MSK: No chest wall TTP, no LE edema NEURO: CN 2-12 intact, 5/5 upper and lower extremity strength, no dysmetria, no drift, good finger to nose, no sensory deficits. SKIN: No rash or jaundice noted. Medical Decision & Procedures ER Provider Diagnostic Interpretation: Radiology results as stated below per my review and radiologist interpretation: CT OF THE HEAD WITHOUT CONTRAST CLINICAL HISTORY: Weakness. Near-syncope. COMPARISON STUDY: Head CT February 10, 2017. CT DOSE: 709.48 mGy.cm TECHNIQUE: Helical axial images of the head were obtained without IV contrast. Automated exposure control was utilized for the study. A dose lowering technique was utilized adhering to the principles of ALARA. FINDINGS: No acute intracranial hemorrhage, midline shift or mass effect is present. Ventricular system is stable. Basilar cisterns are patent. There are no extra-axial collections. Soria-white differentiation is maintained. Moderate white matter hypodensities are unchanged and suggest small vessel disease. A 2.3 x 1.1 cm white matter hypodensity within the left frontal lobe is unchanged. There are no findings to suggest acute dural sinus thrombosis or acute territorial infarct. There is a prominent perivascular space versus old lacunar infarct within left temporal lobe. Wall thickening of the right maxillary sinus is chronic. There is a trace right maxillary sinus air-fluid level. Left mastoid air cells are partially opacified. This is unchanged. Heterogeneous appearance of the calvarium with numerous lucent/lytic lesions is unchanged. IMPRESSION: 1. No acute intracranial findings. No significant change since previous exam. 2. Calvarial heterogeneity with innumerable lucent/lytic foci which is similar to prior exam. This remains indeterminate. Electronically signed by: Ric Mancera M.D. 09/04/2017 5:49 PM Dictated Date/Time: 09/04/2017 5:42 PM CHEST ONE VIEW PORTABLE CLINICAL HISTORY: Weakness. COMPARISON STUDY: Chest radiograph February 10, 2017. FINDINGS: No pneumothorax or pleural effusion is present. There is no evidence of pulmonary edema. Cardiomediastinal silhouette is stable. Cardiomediastinal silhouette is stable. Appearance of the chest is unchanged. IMPRESSION: No acute cardiopulmonary findings. Electronically signed by: Ric Mancera M.D. 09/04/2017 4:48 PM Dictated Date/Time: 09/04/2017 4:47 PM Laboratory Results 09/04/17 16:20 Red Blood Count 3.83, Mean Corpuscular Volume 91.4, Mean Corpuscular Hemoglobin 30.3, Mean Corpuscular Hemoglobin Concent 33.1, Mean Platelet Volume 8.8, Neutrophils (%) (Auto) 66.8, Lymphocytes (%) (Auto) 22.3, Monocytes (%) (Auto) 9.6, Eosinophils (%) (Auto) 0.9, Basophils (%) (Auto) 0.2, Neutrophils # (Auto) 4.32, Lymphocytes # (Auto) 1.44, Monocytes # (Auto) 0.62, Eosinophils # (Auto) 0.06, Basophils # (Auto) 0.01 09/04/17 16:20 Test 09/04/17 16:20 09/04/17 18:10 White Blood Count 6.46 K/uL (4.8-10.8) Red Blood Count 3.83 M/uL (4.2-5.4) Hemoglobin 11.6 g/dL (12.0-16.0) Hematocrit 35.0 % (37-47) Mean Corpuscular Volume 91.4 fL (80-100) Mean Corpuscular Hemoglobin 30.3 pg (25-34) Mean Corpuscular Hemoglobin Concent 33.1 g/dl (32-36) Platelet Count 224 K/uL (130-400) Mean Platelet Volume 8.8 fL (7.4-10.4) Neutrophils (%) (Auto) 66.8 % Lymphocytes (%) (Auto) 22.3 % Monocytes (%) (Auto) 9.6 % Eosinophils (%) (Auto) 0.9 % Basophils (%) (Auto) 0.2 % Neutrophils # (Auto) 4.32 K/uL (1.4-6.5) Lymphocytes # (Auto) 1.44 K/uL (1.2-3.4) Monocytes # (Auto) 0.62 K/uL (0.11-0.59) Eosinophils # (Auto) 0.06 K/uL (0-0.5) Basophils # (Auto) 0.01 K/uL (0-0.2) RDW Standard Deviation 45.9 fL (36.4-46.3) RDW Coefficient of Variation 13.7 % (11.5-14.5) Immature Granulocyte % (Auto) 0.2 % Immature Granulocyte # (Auto) 0.01 K/uL (0.00-0.02) Prothrombin Time 10.9 SECONDS (9.0-12.0) Prothromb Time International Ratio 1.0 (0.9-1.1) Activated Partial Thromboplast Time 23.1 SECONDS (21.0-31.0) Partial Thromboplastin Ratio 0.9 Anion Gap 2.0 mmol/L (3-11) Est Creatinine Clear Calc Drug Dose 22.4 ml/min Estimated GFR () 26.7 Estimated GFR (Non- 23.0 BUN/Creatinine Ratio 16.6 (10-20) Calcium Level 9.0 mg/dl (8.5-10.1) Magnesium Level 2.3 mg/dl (1.8-2.4) Total Bilirubin 0.3 mg/dl (0.2-1) Direct Bilirubin 0.1 mg/dl (0-0.2) Aspartate Amino Transf (AST/SGOT) 21 U/L (15-37) Alanine Aminotransferase (ALT/SGPT) 28 U/L (12-78) Alkaline Phosphatase 62 U/L (45-117) Troponin I < 0.015 ng/ml (0-0.045) Pro-B-Type Natriuretic Peptide 281 pg/ml (0-900) Total Protein 6.6 gm/dl (6.4-8.2) Albumin 3.3 gm/dl (3.4-5.0) Lipase 326 U/L (73-393) Thyroid Stimulating Hormone (TSH) 2.450 uIu/ml (0.300-4.500) Urine Color YELLOW Urine Appearance CLOUDY (CLEAR) Urine pH 7.5 (4.5-7.5) Urine Specific [place] 1.019 (1.000-1.030) Urine Protein NEG (NEG) Urine Glucose (UA) NEG (NEG) Urine Ketones TRACE (NEG) Urine Occult Blood NEG (NEG) Urine Nitrite NEG (NEG) Urine Bilirubin NEG (NEG) Urine Urobilinogen NEG (NEG) Urine Leukocyte Esterase MODERATE (NEG) Urine WBC (Auto) >30 /hpf (0-5) Urine RBC (Auto) 0-4 /hpf (0-4) Urine Hyaline Casts (Auto) 1-5 /lpf (0-5) Urine Epithelial Cells (Auto) 0-5 /lpf (0-5) Urine Bacteria (Auto) 4+ (NEG) Laboratory results reviewed by me Medications Administered Medications (Trade) Dose Ordered Sig/Jaziel Route Start Time Stop Time Status Last Admin Dose Admin Sodium Chloride 1,000 ml @ 999 mls/hr Q1H1M STAT IV 09/04/17 18:04 09/04/17 19:04 09/04/17 18:04 999 MLS/HR ECG Indication: syncope Rate (beats per minute): 71 Rhythm: normal sinus Findings: other (Normal interval, normal axis, no STS changes or TWI) ED Course 1551: The patient was evaluated in room A03. A complete history and physical exam was performed. 1801: Upon reexamination, the patient was resting comfortably. I discussed the test results and treatment plan with her. The patient will be evaluated for further management. 182: I discussed the patient's case with Dr. Mccollum, [place] [facility]ist. The patient will be evaluated for further management and care. Medical Decision The patient is a 67 year old white female with a past medical history of HTN, cerebrovascular disease, dementia, acute lymphoid leukemia, TIA, Meningioma, bilateral hip replacement, who presents to the ED with a cc of a resolved syncopal episode that occurred prior to arrival. Differential diagnosis: Etiologies such as vasovagal event, infection, hypoglycemia, electrolyte abnormalities, cardiac sources, intracerebral event, toxicologic, neurologic, as well as others were entertained. Patient was seen and evaluated the bedside. Patient had a reported syncopal episode prior to arrival while she was watching wrestling match. Patient was standing for approximately 40-50 minutes. Patient apparently felt very lightheaded and warm and then passed out for approximately 90 seconds. Per the patient's she did appear stiff in her upper extremities but no rhythm rhythmic like shaking. Patient denies any tongue biting but did have some incontinence. Patient denies any chest pain, shortness of breath, lower extremity swelling. Patient denies any alcohol or tobacco. Patient did have blood work, EKG, troponin, chest x-ray, CT brain that were completed. Patient noted that she did have acute kidney injury as the patient's baseline creatinine is approximately half overloaded this today. I did discuss this with the patient the patient has had some decreased urine intake. Patient denies any NSAID use. Patient CT of the brain is negative. Patient's EKG does not show any overt arrhythmia or ischemic changes. I did discuss the patient with the hospitalist to was admitted for further evaluation and treatment. Medication Reconcilliation Current Medication List: was personally reviewed by me Blood Pressure Screening Patient's blood pressure: Elevated blood pressure Monitored by hospitalist. Consults Time Called: 1801 Consulting Physician[facility] Returned Call: [phone] I discussed the patient's case with [facility] The patient will be evaluated for further management and care. Impression Primary Impression: TRISH (acute kidney injury) Additional Impression: Syncope Scribe Attestation The scribe's documentation has been prepared under my direction and personally reviewed by me in its entirety. I confirm that the note above accurately reflects all work, treatment, procedures, and medical decision making performed by me. Departure Information Dispostion Being Evaluated By Hospitalist Referrals Max Pendleton, D.O. (PCP) Patient Instructions My [facility] Problem Qualifiers Additional Impression: Syncope Syncope type: unspecified Qualified Codes: R55 - Syncope and collapse
[2017-09-04 16:36] LABS: BASO % 0.2 %; BASO ABS # 0.01 K/uL (0-0.2); EOS % 0.9 %; EOS ABS # 0.06 K/uL (0-0.5); HEMOGLOBIN 11.6 g/dL (12.0-16.0); IG# 0.01 K/uL (0.00-0.02); LYMPH % 22.3 %; LYMPH ABS # 1.44 K/uL (1.2-3.4); MEAN CELL VOLUME 91.4 fL (80-100); MEAN CORPUSCULAR HEMOGLOBIN 30.3 pg (25-34); MEAN CORPUSCULAR HGB CONC 33.1 g/dl (32-36); MEAN PLATELET VOLUME 8.8 fL (7.4-10.4); MONO % 9.6 %; MONO ABS # 0.62 K/uL (0.11-0.59); NEUT % 66.8 %; NEUT ABS # 4.32 K/uL (1.4-6.5); PLATELET COUNT 224 K/uL (130-400); RED CELL DISTRIBUTION WIDTH CV 13.7 % (11.5-14.5); RED CELL DISTRIBUTION WIDTH SD 45.9 fL (36.4-46.3); WHITE BLOOD COUNT 6.46 K/uL (4.8-10.8)
[2017-09-04 16:46] LABS: PTT PATIENT 23.1 SECONDS (21.0-31.0)
--- NOTE | 2017-09-04 16:50 | DIAGNOSTIC IMAGING REPORT ---
CHEST ONE VIEW PORTABLE CLINICAL HISTORY: Weakness. COMPARISON STUDY: Chest radiograph February 10, 2017. FINDINGS: No pneumothorax or pleural effusion is present. There is no evidence of pulmonary edema. Cardiomediastinal silhouette is stable. Cardiomediastinal silhouette is stable. Appearance of the chest is unchanged. IMPRESSION: No acute cardiopulmonary findings. Electronically signed by: Ric Mancera M.D. 09/04/2017 4:48 PM Dictated Date/Time: 09/04/2017 4:47 PM
[2017-09-04 16:54] LABS: ALBUMIN 3.3 gm/dl (3.4-5.0); ALT/SGPT 28 U/L (12-78); AST/SGOT 21 U/L (15-37); BLOOD UREA NITROGEN 35 mg/dl (7-18); CARBON DIOXIDE 32 mmol/L (21-32); CREATININE 2.13 mg/dl (0.60-1.20); GLUCOSE 80 mg/dl (70-99); LIPASE 326 U/L (73-393); POTASSIUM 4.4 mmol/L (3.5-5.1); SODIUM 141 mmol/L (136-145)
[2017-09-04 17:05] LABS: ALKALINE PHOSPHATASE 62 U/L (45-117); TOTAL PROTEIN 6.6 gm/dl (6.4-8.2)
--- NOTE | 2017-09-04 17:50 | DIAGNOSTIC IMAGING REPORT ---
CT OF THE HEAD WITHOUT CONTRAST CLINICAL HISTORY: Weakness. Near-syncope. COMPARISON STUDY: Head CT February 10, 2017. CT DOSE: 709.48 mGy.cm TECHNIQUE: Helical axial images of the head were obtained without IV contrast. Automated exposure control was utilized for the study. A dose lowering technique was utilized adhering to the principles of ALARA. FINDINGS: No acute intracranial hemorrhage, midline shift or mass effect is present. Ventricular system is stable. Basilar cisterns are patent. There are no extra-axial collections. Soria-white differentiation is maintained. Moderate white matter hypodensities are unchanged and suggest small vessel disease. A 2.3 x 1.1 cm white matter hypodensity within the left frontal lobe is unchanged. There are no findings to suggest acute dural sinus thrombosis or acute territorial infarct. There is a prominent perivascular space versus old lacunar infarct within left temporal lobe. Wall thickening of the right maxillary sinus is chronic. There is a trace right maxillary sinus air-fluid level. Left mastoid air cells are partially opacified. This is unchanged. Heterogeneous appearance of the calvarium with numerous lucent/lytic lesions is unchanged. IMPRESSION: 1. No acute intracranial findings. No significant change since previous exam. 2. Calvarial heterogeneity with innumerable lucent/lytic foci which is similar to prior exam. This remains indeterminate. Electronically signed by: Ric Mancera M.D. 09/04/2017 5:49 PM Dictated Date/Time: 09/04/2017 5:42 PM
[2017-09-04] MEDS ORDERED: SODIUM CHLORIDE 0.9% 1000ML 1,000 ML IV STA (18:04)
[2017-09-04] MEDS ORDERED: ACETAMINOPHEN 325 MG TAB PO PRN (19:15)
[2017-09-04] MEDS ORDERED: ONDANSETRON INJ 2 MG/ML 2 ML VIAL IV PRN (19:15)
--- NOTE | 2017-09-04 19:55 | History and Physical ---
History & Physical Date & Time of Service: Sep 04, 2017 at 19:30 Chief Complaint: Near Syncope, Primary Care Physician: Max Pendleton D.OJason History of Present Illness Source: patient, family Patient is a 67 yr female with PMH of multiple TIAs, CKD III, Acute lymphoid leukemia, Meningioma, HTN, Hypothyroidism, dementia and other problems presents with history of a witnessed syncopal episode today. As per the patient and her family, patient was watching a wrestling match and suddenly felt lightheaded and lost consciousness for about 1-2 minutes as per family. She states she felt lightheaded and had to sit down prior to LOC but denies any fall, head trauma. Also reports had urinary incontinence and felt clammy during the episode. Family denies noticing and seizure like activity. Patient/family denies any tongue biting, speech problems, vertigo, facial deformity, chest pain, SOB, fever, chills, headache, change in vision, weakness, numbness, double/blurry vision, nausea, vomiting, abdominal pain, diarrhea, change in appetite, dysuria , recent change in medications. She reports having chronic cough and constipation. Also reports that she slipped and fell yesterday and bruised her left upper extremity but no LOC Yesterday. She has taken her ASA and Plavix today. Past Medical/Surgical History Medical Problems: (1) Benign hypertension Status: Chronic (2) Cerebrovascular disease Permanent Comment: Hx TIA Status: Chronic (3) Dementia Status: Chronic (4) History of acute lymphoid leukemia Status: Chronic (5) History of adenomatous polyp of colon Status: Chronic (6) History of TIA (transient ischemic attack) Status: Chronic (7) Meningioma Permanent Comment: interhemispheric frontal mass 4 x 9 mm per MRI 01/25/14 Status: Chronic Surgical Problems: (1) Status post bilateral hip replacements Status: Chronic Family History Cancer Hypertension Mother: Epilepsy Social History Smoking Status: Never Smoker Alcohol Use: none Drug Use: none Marital Status: Housing status: lives with family Occupational Status: employed Immunizations History of Influenza Vaccine: Yes History of Tetanus Vaccine?: Unknown History of Pneumococcal: Yes Pneumococcal Date: Feb 24, 2000 History of Hepatitis B Vaccine: Unknown Multi-Drug Resistant Organisms History of MDRO: No Allergies Coded Allergies: Latex1 -Allergic Contact Dermititis (Verified Allergy, Unknown, RASH, ) NO KNOWN DRUG ALLERGIES (Verified Allergy, Unknown, ., 01/06/17) Home Medications Scheduled Aspirin (Aspirin Ec), 81 MG PO QAM Atorvastatin (Lipitor), 40 MG PO DAILY Calcium/Vitamin D (Os-Tobias 500 Plus D), 1 TAB PO QAM Clopidogrel (Plavix), 75 MG PO QAM Levothyroxine Sodium (Synthroid), 50 MCG PO QAM Lisinopril (Prinivil), 10 MG PO QAM Multivitamin (Multivitamin), 1 TAB PO QAM [place]-3 Fatty Acids (Fish Oil), 1,000 MG PO BID Review of Systems See HPI for pertinent positives & negatives. A total of 10 systems reviewed and were otherwise negative. Physical Exam Vital Signs Date Time Temp Pulse Resp B/P (MAP) Pulse Ox O2 Delivery O2 Flow Rate FiO2 09/04/17 16:50 78 20 145/80 98 Room Air 09/04/17 16:27 71 09/04/17 16:00 99 Room Air 09/04/17 15:45 36.6 71 20 125/65 98 Room Air General Appearance: WD/WN, no apparent distress Head: normocephalic, atraumatic Eyes: normal inspection, PERRL, EOMI, sclerae normal ENT: normal ENT inspection, hearing grossly normal Neck: supple, trachea midline Respiratory/Chest: chest non-tender, lungs clear, normal breath sounds, no respiratory distress, no accessory muscle use Cardiovascular: regular rate, rhythm, no edema, no murmur Abdomen/GI: normal bowel sounds, non tender, soft Back: normal inspection Extremities/Musculoskelatal: normal inspection, no pedal edema, + pertinent finding (LUE echymosis and abrasion ) 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 tested, no motor/sensory deficits, alert, normal mood/affect, oriented x 3 Skin: normal color, warm/dry Diagnostics Laboratory Results Results Past 24 Hours Test 09/04/17 16:20 09/04/17 18:10 Range/Units White Blood Count 6.46 4.8-10.8 K/uL Red Blood Count 3.83 4.2-5.4 M/uL Hemoglobin 11.6 12.0-16.0 g/dL Hematocrit 35.0 37-47 % Mean Corpuscular Volume 91.4 80-100 fL Mean Corpuscular Hemoglobin 30.3 25-34 pg Mean Corpuscular Hemoglobin Concent 33.1 32-36 g/dl Platelet Count 224 130-400 K/uL Mean Platelet Volume 8.8 7.4-10.4 fL Neutrophils (%) (Auto) 66.8 % Lymphocytes (%) (Auto) 22.3 % Monocytes (%) (Auto) 9.6 % Eosinophils (%) (Auto) 0.9 % Basophils (%) (Auto) 0.2 % Neutrophils # (Auto) 4.32 1.4-6.5 K/uL Lymphocytes # (Auto) 1.44 1.2-3.4 K/uL Monocytes # (Auto) 0.62 0.11-0.59 K/uL Eosinophils # (Auto) 0.06 0-0.5 K/uL Basophils # (Auto) 0.01 0-0.2 K/uL RDW Standard Deviation 45.9 36.4-46.3 fL RDW Coefficient of Variation 13.7 11.5-14.5 % Immature Granulocyte % (Auto) 0.2 % Immature Granulocyte # (Auto) 0.01 0.00-0.02 K/uL Prothrombin Time 10.9 9.0-12.0 SECONDS Prothromb Time International Ratio 1.0 0.9-1.1 Activated Partial Thromboplast Time 23.1 21.0-31.0 SECONDS Partial Thromboplastin Ratio 0.9 Sodium Level 141 136-145 mmol/L Potassium Level 4.4 3.5-5.1 mmol/L Chloride Level 107 98-107 mmol/L Carbon Dioxide Level 32 21-32 mmol/L Anion Gap 2.0 3-11 mmol/L Blood Urea Nitrogen 35 7-18 mg/dl Creatinine 2.13 0.60-1.20 mg/dl Est Creatinine Clear Calc Drug Dose 22.4 ml/min Estimated GFR () 26.7 Estimated GFR (Non- 23.0 BUN/Creatinine Ratio 16.6 10-20 Random Glucose 80 70-99 mg/dl Calcium Level 9.0 8.5-10.1 mg/dl Magnesium Level 2.3 1.8-2.4 mg/dl Total Bilirubin 0.3 0.2-1 mg/dl Direct Bilirubin 0.1 0-0.2 mg/dl Aspartate Amino Transf (AST/SGOT) 21 15-37 U/L Alanine Aminotransferase (ALT/SGPT) 28 12-78 U/L Alkaline Phosphatase 62 45-117 U/L Troponin I < 0.015 0-0.045 ng/ml Pro-B-Type Natriuretic Peptide 281 0-900 pg/ml Total Protein 6.6 6.4-8.2 gm/dl Albumin 3.3 3.4-5.0 gm/dl Lipase 326 73-393 U/L Thyroid Stimulating Hormone (TSH) 2.450 0.300-4.500 uIu/ml Urine Color YELLOW Urine Appearance CLOUDY CLEAR Urine pH 7.5 4.5-7.5 Urine Specific [place] 1.019 1.000-1.030 Urine Protein NEG NEG Urine Glucose (UA) NEG NEG Urine Ketones TRACE NEG Urine Occult Blood NEG NEG Urine Nitrite NEG NEG Urine Bilirubin NEG NEG Urine Urobilinogen NEG NEG Urine Leukocyte Esterase MODERATE NEG Urine WBC (Auto) >30 0-5 /hpf Urine RBC (Auto) 0-4 0-4 /hpf Urine Hyaline Casts (Auto) 1-5 0-5 /lpf Urine Epithelial Cells (Auto) 0-5 0-5 /lpf Urine Bacteria (Auto) 4+ NEG Microbiology Results 09/04/17 Blood Culture, Ordered Pending 09/04/17 Blood Culture, Ordered Pending Diagnostic Radiology CXR: : No acute cardiopulmonary findings. CT Head: 1. No acute intracranial findings. No significant change since previous exam. 2. Calvarial heterogeneity with innumerable lucent/lytic foci which is similar to prior exam. This remains indeterminate. EKG EKG: NSR Impression Assessment and Plan Syncope: Likely Vasovagal/Orthostatic DD: R/O seizure, CVA/TIA CT head: No acute intracranial findings Monitor in Telemetry for arrhythmia Check Orthostatics Start IV fluids Check MRI brain, ECHO, Carotid Ultrasound, EEG Trend cardiac enzymes ECG shows: NSR, No signs of Ischemia Fall precautions Neurology consulted Fall/Aspiration precautions TRISH on CKD III: Denies NSAIDs use Cr:2.13 Start IV fluids Hold lisinopril Monitor renal function Possible UTI: Denies Dysuria Blood/Urine cultures Start IV ceftriaxone H/O TIAs/ ?CVA No focal deficits from prior TIAs Continue Aspirin, Plavix, statins Acute lymphoid leukemia: H/O Meningioma S/P Radiation therapy, Bone marrow transplant Previously followed with Currently not on any meds HTN: Stable Hold Lisinopril secondary to TRISH Hypothyroidism: TSH: normal Continue levothyroxine Dementia: As per records DVT Px: Heparin SQ Code Status: DNI only: On my discussion with patient and her family Disposition: Admit in Telemetry PT/OT VTE Prophylaxis VTE Risk Assessment Done? Y/N: Yes Risk Level: Moderate
[2017-09-04] MEDS: SODIUM CHLORIDE 0.9% 1000ML 1,000 ML IV SCH (21:50)
[2017-09-04] MEDS: CEFTRIAXONE SOD INJ 1 GM in DEXTROSE 5% ADD-VANTAGE 50ML 50 ML IV SCH (21:51)
[2017-09-04] MEDS: HEPARIN SOD 5000 UNIT/0.5 ML CARP SQ SCH (21:53)
[2017-09-04 23:07] VITALS: BP 143/76; PULSE 71; TEMP 36.8; O2SAT 98; Ht 165.1 cm; Wt 57.7 kg
--- NOTE | 2017-09-04 23:10 | DIAGNOSTIC IMAGING REPORT ---
CAROTID ARTERY ULTRASOUND CLINICAL HISTORY: Syncope. COMPARISON STUDY: Carotid ultrasound November 26, 2013. TECHNIQUE: Real-time, grayscale, and color Doppler sonography of the carotid and vertebral arteries was performed. Images were viewed in the transverse and longitudinal planes. FINDINGS: There is mild atherosclerotic plaque. Velocity measurements are listed below. COMMON CAROTID PEAK SYSTOLIC VELOCITY (CM/S): RIGHT 72 LEFT 79 ICA PEAK SYSTOLIC VELOCITY (CM/S): RIGHT 64 LEFT 59 The systolic ratios between the internal to common carotid arteries were normal. Antegrade flow is seen in the vertebral arteries. The external carotid arteries are patent. Blood pressure in the right arm measured 129/71. Blood pressure in the left arm measured 110/60. IMPRESSION: No evidence for a hemodynamically significant stenosis. Electronically signed by: Ric Mancera M.D. 09/04/2017 11:09 PM Dictated Date/Time: 09/04/2017 11:08 PM
[2017-09-05] VITALS (8 sets, daily range): BP systolic 102–147; BP diastolic 61–80; PULSE 64–78; TEMP 36.4–36.9; O2SAT 93–98
[2017-09-05 03:10] LABS: HEMATOCRIT 33.2 % (37-47); HEMOGLOBIN 10.9 g/dL (12.0-16.0); MEAN CELL VOLUME 91.5 fL (80-100); MEAN CORPUSCULAR HGB CONC 32.8 g/dl (32-36); MEAN PLATELET VOLUME 8.6 fL (7.4-10.4); PLATELET COUNT 208 K/uL (130-400); RED CELL DISTRIBUTION WIDTH CV 13.8 % (11.5-14.5); RED CELL DISTRIBUTION WIDTH SD 46.1 fL (36.4-46.3); WHITE BLOOD COUNT 5.09 K/uL (4.8-10.8)
[2017-09-05 04:00] LABS: BLOOD UREA NITROGEN 35 mg/dl (7-18); CALCIUM 8.7 mg/dl (8.5-10.1); CARBON DIOXIDE 29 mmol/L (21-32); CREATININE 1.35 mg/dl (0.60-1.20); GLUCOSE 83 mg/dl (70-99); POTASSIUM 3.9 mmol/L (3.5-5.1); SODIUM 143 mmol/L (136-145)
[2017-09-05] MEDS: LEVOTHYROXINE 50 MCG TAB PO SCH (05:52)
[2017-09-05] MEDS: HEPARIN SOD 5000 UNIT/0.5 ML CARP SQ SCH ×3 (05:54→21:32)
--- NOTE | 2017-09-05 06:39 | DIAGNOSTIC IMAGING REPORT ---
BRAIN WITHOUT CONTRAST HISTORY: Mental status change Syncope TECHNIQUE: Multiplanar multisequence MRI of the brain was performed without the use of contrast. COMPARISON STUDY: 09/04/2017 FINDINGS: Diffusion-weighted images are negative for an acute ischemic event. Mild cerebellar as well as cerebral atrophy unchanged in the prior study. Moderate periventricular and deep white matter chronic small vessel change. No evidence for an acute infarct based on diffusion images. A small midline meningioma is unchanged. No significant mass effect. IMPRESSION: No acute intracranial abnormality. Chronic and age-related change. The above report was generated using voice recognition software. It may contain grammatical, syntax or spelling errors. Electronically signed by: Lamont Grossman M.D. 09/05/2017 6:37 AM Dictated Date/Time: 09/05/2017 6:34 AM
[2017-09-05] MEDS ORDERED: INFLUENZA VIRUS QUAD VACCINE 0.5 ML SYR IM. ONE (08:00)
[2017-09-05] MEDS ORDERED: INFLUENZA ADMINISTRATION CHARGE ONE (08:00)
[2017-09-05] MEDS: ATORVASTATIN 40 MG TAB PO SCH (09:20)
[2017-09-05] MEDS: CALCIUM 600MG + VIT D 400 IU TAB PO SCH (09:20)
[2017-09-05] MEDS: CLOPIDOGREL BISULFATE 75 MG TAB PO SCH (09:20)
[2017-09-05] MEDS: ASPIRIN 81 MG ECTAB PO SCH (09:21)
[2017-09-05] MEDS: SODIUM CHLORIDE 0.9% 1000ML 1,000 ML IV SCH (10:00)
--- NOTE | 2017-09-05 10:43 | Progress Note ---
Internal Med Progress Note Date of Service: Sep 05, 2017. Provider Documentation: SUBJECTIVE: Seen and examined at bedside States feeling much better today Denies any chest pain, SOB, dizziness, dysuria, Abd pain No other complaints OBJECTIVE: Vital Signs-as noted below General Appearance: WD/WN, no apparent distress Head: normocephalic, atraumatic Eyes: normal inspection, PERRL, EOMI, sclerae normal ENT: normal ENT inspection, hearing grossly normal Neck: supple, trachea midline Respiratory/Chest: chest non-tender, lungs clear, normal breath sounds, no respiratory distress, no accessory muscle use Cardiovascular: regular rate, rhythm, no edema, no murmur Abdomen/GI: normal bowel sounds, non tender, soft Back: normal inspection Extremities/Musculoskelatal: normal inspection, no pedal edema, + pertinent finding (LUE echymosis and abrasion ) 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 ASSESSMENT & PLAN: Syncope: Likely Vasovagal DD: R/O seizure Orthostatics: Negative CT head: No acute intracranial findings MRI Brain:No acute intracranial abnormality. Chronic and age-related change Telemetry: No rhythm issues since hospitalization ECHO:pending Carotid Ultrasound:No evidence for a hemodynamically significant stenosis. EEG:Pending cardiac enzymes: X3: negative ECG shows: NSR, No signs of Ischemia Fall precautions Neurology consulted Fall precautions TRISH on CKD III: Denies NSAIDs use Cr:2.13>>>1.35 Continue IV fluids Hold lisinopril for now Monitor renal function UTI: Denies Dysuria Blood/Urine cultures:pending Continue IV ceftriaxone Day #2 H/O TIAs/ ?CVA No focal deficits from prior TIAs Continue Aspirin, Plavix, statins Acute lymphoid leukemia: H/O Meningioma as per records S/P Radiation therapy, Bone marrow transplant Previously followed with Currently not on any meds HTN: Stable Hold Lisinopril secondary to TRISH Hypothyroidism: TSH: normal Continue levothyroxine Dementia: As per records DVT Px: Heparin SQ Code Status: DNI only: On my discussion with patient and her family Disposition: Monitor in Telemetry PT/OT Vital Signs: Date Time Temp Pulse Resp B/P (MAP) Pulse Ox O2 Delivery O2 Flow Rate FiO2 09/05/17 15:58 36.4 67 18 117/71 (86) 96 Room Air 09/05/17 12:14 36.5 69 20 147/75 (99) 97 Room Air 09/05/17 12:00 Room Air 09/05/17 08:00 Room Air 09/05/17 07:39 36.7 64 18 106/64 (78) 94 Room Air 76 110/71 (84) 78 122/77 (92) 09/05/17 04:09 36.9 65 16 102/61 (75) 93 Room Air 09/05/17 04:00 98 Room Air 09/05/17 00:57 36.7 65 18 123/72 (89) 93 Room Air 09/05/17 00:00 98 Room Air 09/04/17 23:07 36.8 71 20 143/76 98 Room Air 09/04/17 21:00 75 20 153/77 97 Room Air 09/04/17 20:00 67 20 145/87 97 Room Air 09/04/17 19:00 69 20 136/85 98 Room Air 09/04/17 18:00 70 20 170/82 98 Room Air Lab Results: Results Past 24 Hours Test 09/04/17 18:10 09/04/17 20:40 09/05/17 03:01 Range/Units Urine Color YELLOW Urine Appearance CLOUDY CLEAR Urine pH 7.5 4.5-7.5 Urine Specific [place] 1.019 1.000-1.030 Urine Protein NEG NEG Urine Glucose (UA) NEG NEG Urine Ketones TRACE NEG Urine Occult Blood NEG NEG Urine Nitrite NEG NEG Urine Bilirubin NEG NEG Urine Urobilinogen NEG NEG Urine Leukocyte Esterase MODERATE NEG Urine WBC (Auto) >30 0-5 /hpf Urine RBC (Auto) 0-4 0-4 /hpf Urine Hyaline Casts (Auto) 1-5 0-5 /lpf Urine Epithelial Cells (Auto) 0-5 0-5 /lpf Urine Bacteria (Auto) 4+ NEG Troponin I < 0.015 < 0.015 0-0.045 ng/ml White Blood Count 5.09 4.8-10.8 K/uL Red Blood Count 3.63 4.2-5.4 M/uL Hemoglobin 10.9 12.0-16.0 g/dL Hematocrit 33.2 37-47 % Mean Corpuscular Volume 91.5 80-100 fL Mean Corpuscular Hemoglobin 30.0 25-34 pg Mean Corpuscular Hemoglobin Concent 32.8 32-36 g/dl RDW Standard Deviation 46.1 36.4-46.3 fL RDW Coefficient of Variation 13.8 11.5-14.5 % Platelet Count 208 130-400 K/uL Mean Platelet Volume 8.6 7.4-10.4 fL Sodium Level 143 136-145 mmol/L Potassium Level 3.9 3.5-5.1 mmol/L Chloride Level 111 98-107 mmol/L Carbon Dioxide Level 29 21-32 mmol/L Anion Gap 3.0 3-11 mmol/L Blood Urea Nitrogen 35 7-18 mg/dl Creatinine 1.35 0.60-1.20 mg/dl Est Creatinine Clear Calc Drug Dose 35.4 ml/min Estimated GFR () 46.3 Estimated GFR (Non- 40.0 BUN/Creatinine Ratio 25.6 10-20 Random Glucose 83 70-99 mg/dl Calcium Level 8.7 8.5-10.1 mg/dl Magnesium Level 2.1 1.8-2.4 mg/dl Microbiology Results 09/04/17 Blood Culture, Received Pending 09/04/17 Blood Culture, Received Pending 09/04/17 Urine Culture - Preliminary, Resulted Gram Negative Bacilli
--- NOTE | 2017-09-05 13:03 | ELECTROENCEPHALOGRAPH REPORT ---
FOR: Dr. Mccollum CLINICAL DIAGNOSIS: Syncopal episode with possible seizure activity. ELECTROENCEPHALOGRAM DIAGNOSIS: Mildly diffusely abnormal EEG during wakefulness. DESCRIPTION OF TRACING: This EEG was done as a bedside recording and was of good technical quality with a few muscle movement artifacts scattered throughout the tracing. These are captured by simultaneous video EEG analysis as well. Photic stimulation was performed, hyperventilation was not and drowsiness and light sleep were not recorded. Under these conditions, there is evidence for what appears to be a background rhythm in the upper theta range at 8 Hz of maximum frequency and of up to 30 microvolts of maximum amplitude. This is maximum posterior head regions bilaterally symmetrical. Polymorphic mid to slightly lower frequency theta activity of modest voltage is seen over all head regions, maximum in the central regions and in a symmetrical fashion. Anterior head region maximum bilaterally symmetrical low voltage fast activity in the beta range is present. Photic stimulation provoked some modest driving response without a photomyogenic or photoparoxysmal component. At no time during the waking tracing is there evidence for potentially epileptogenic activity in the form of polyspike, spike wave bursts, or focal sharp waves. INTERPRETATION: This EEG reveals at most mild nonspecific generalized abnormalities consistent with a low grade encephalopathy and possibly correlating with the patient's known diagnosis of dementia, but there are no lateralizing features and specifically no evidence for potentially epileptogenic activity is seen.
--- NOTE | 2017-09-05 13:36 | ECHOCARDIOGRAM REPORT ---
*NOTICE TO RECEIVING REPUBLICAN AGENCY This information is strictly Confidential and protected under [place] law. [place] law prohibits you from making any further disclosure of this information unless further disclosure is expressly permitted by the written consent of the person to whom it pertains or is authorized by law. A general authorization for the release of medical or other information is not sufficient for this purpose. Hospital accepts no responsibility if the information is made available to any other person, INCLUDING THE PATIENT. Interpretation Summary * Name: SHAN GRAY Study Date: 09/05/2017 07:01 AM BP: 102/61 mmHg * Patient Location: [facility] HR: 63 * : 1950 (M/d/yyyy) Gender: Female Height: 65 in * Age: 67 yrs Ethnicity: [place] Weight: 132 lb * Ordering Physician: Al Mccollum * Referring Physician: Self, Referred * Performed By: Monika Huynh RDCS * * Reason For Study: Syncope * BSA: 1.7 m2 * The study was technically adequate. * The study was technically limited. * Compared to prior study, changes are noted. * -- Conclusions -- * Ejection Fraction = 60-65%. * The aortic valve is moderately calcified. * 2D images and doppler interrogation of the aortic valve are discordant. * Borderline mild aortic stenosis is suggested by doppler interrogation, however, the severity of aortic stenosis may be underestimated due to technical limitations. * There is severe mitral annular calcification. * There is mild mitral regurgitation. * There is mild tricuspid regurgitation. * Doppler findings do not suggest pulmonary hypertension. Procedure Details * A complete two-dimensional transthoracic echocardiogram was performed (2D, M-mode, Doppler and color flow Doppler). Left Ventricle * The left ventricle is normal in size. * There is normal left ventricular wall thickness. * Ejection Fraction = 60-65%. * Left ventricular systolic function is normal. * The left ventricular wall motion is normal. Right Ventricle * The right ventricle is normal size. * The right ventricular systolic function is normal as assessed by tricuspid annular plane systolic excursion (TAPSE) (normal >1.5 cm). Atria * The left atrial size is normal. * Right atrial size is normal. * There is no evidence of atrial septal defect, but resolution does not allow assessment for a patent foramen ovale. Mitral Valve * There is severe mitral annular calcification. * There is no mitral valve stenosis. * There is mild mitral regurgitation. Tricuspid Valve * The tricuspid valve is normal. * There is no tricuspid stenosis. * There is mild tricuspid regurgitation. * Doppler findings do not suggest pulmonary hypertension. Aortic Valve * The aortic valve is not well visualized. * The aortic valve is moderately calcified. * 2D images and doppler interrogation of the aortic valve are discordant. Borderline mild aortic stenosis is suggested by doppler interrogation, however, the severity of aortic stenosis may be underestimated due to technical limitations. * There is no significant aortic regurgitation. Pulmonic Valve * The pulmonary valve is not well seen, but the Doppler examination is normal without significant regurgitation or stenosis. Great Vessels * The aortic root and proximal ascending aorta are normal sized. Pericardium/Pleural * There is no pericardial effusion. Great Vessels * Normal inferior vena cava diameter and respiratory variation suggests normal central venous pressure. Left Ventricular Diastolic Function * Grade I diastolic dysfunction, (abnormal relaxation pattern). MMode 2D Measurements and Calculations IVSd 0.92 cm LVIDd 4.2 cm LVIDs 2.9 cm LVPWd 0.86 cm IVS/LVPW 1.1 FS 32.3 % EDV(Teich) 79.7 ml ESV(Teich) 31.1 ml EF(Teich) 60.9 % EDV(cubed) 75.5 ml ESV(cubed) 23.4 ml EF(cubed) 69.0 % LV mass(C)d 118.2 grams LV mass(C)dI 71.3 grams/m\S\2 SV(Teich) 48.6 ml SI(Teich) 29.3 ml/m\S\2 SV(cubed) 52.1 ml SI(cubed) 31.4 ml/m\S\2 Ao root diam 3.2 cm Ao root area 8.1 cm\S\2 ACS 1.4 cm asc Aorta Diam 3.2 cm LVAd ap4 18.9 cm\S\2 LVLd ap4 6.1 cm EDV(MOD-sp4) 47.6 ml EDV(sp4-el) 49.2 ml LVAs ap4 10.5 cm\S\2 LVLs ap4 5.4 cm ESV(MOD-sp4) 19.0 ml ESV(sp4-el) 17.3 ml EF(MOD-sp4) 60.0 % EF(sp4-el) 64.8 % LVAd ap2 19.0 cm\S\2 LVLd ap2 6.4 cm EDV(MOD-sp2) 47.4 ml EDV(sp2-el) 47.9 ml LVAs ap2 9.8 cm\S\2 LVLs ap2 4.9 cm ESV(MOD-sp2) 15.8 ml ESV(sp2-el) 16.8 ml EF(MOD-sp2) 66.6 % EF(sp2-el) 64.9 % LVLd %diff 4.2 % EDV(MOD-bp) 48.5 ml LVLs %diff -10.55 % ESV(MOD-bp) 16.1 ml EF(MOD-bp) 66.7 % SV(MOD-sp4) 28.6 ml SI(MOD-sp4) 17.2 ml/m\S\2 SV(MOD-sp2) 31.6 ml SI(MOD-sp2) 19.1 ml/m\S\2 SV(MOD-bp) 32.4 ml SI(MOD-bp) 19.5 ml/m\S\2 SV(sp4-el) 31.9 ml SI(sp4-el) 19.2 ml/m\S\2 SV(sp2-el) 31.1 ml SI(sp2-el) 18.7 ml/m\S\2 Doppler Measurements and Calculations MV E max roby 119.3 cm/sec MV A max roby 137.3 cm/sec MV E/A 0.87 MV V2 max 141.9 cm/sec MV max PG 8.1 mmHg MV V2 mean 85.0 cm/sec MV mean PG 3.3 mmHg MV V2 VTI 55.1 cm MV dec time 0.26 sec Ao V2 max 192.1 cm/sec Ao max PG 14.8 mmHg Ao max PG (full) 11.5 mmHg Ao V2 mean 152.3 cm/sec Ao mean PG 10.1 mmHg Ao V2 VTI 52.0 cm LV V1 max PG 3.2 mmHg LV V1 max 89.7 cm/sec SV(Ao) 420.8 ml SI(Ao) 253.8 ml/m\S\2 PA V2 max 116.7 cm/sec PA max PG 5.5 mmHg PA acc slope 290.8 cm/sec\S\2 PA acc time 0.16 sec TR max roby 248.7 cm/sec PA pr(Accel) 7.7 mmHg
--- NOTE | 2017-09-05 14:37 | Neurology Consultation ---
Neurology Consultation Date of Consultation: Sep 05, 2017. Attending Physician: Al Mccollum MD Primary Care Physician: Max Pendleton D.OJason Reason for Consultation: syncope multiple TIAs History of Present Illness Source: patient, hospital records Melania is a 67 year female with PMH of multiple TIAs, CKD III, Acute lymphoid leukemia, meningioma, HTN, Hypothyroidism, dementia. She had a witnessed syncopal episode yesterday while attending a wrestling match for her grand son. she states the place was packed and there really wasn't anywhere to sit down. she became lightheaded and her sat her down. She then had a LOC of 1-2 minutes afterward she was fully aware of where she was. She kept telling them she didn't want to go to the hospital but they won't listen to her. after she passed out someone help her lower her to the floor. She did have a loss of urine. According to chart there was no seizure like activity. She denies any tongue biting, speech problems, vertigo, facial deformity, chest pain, SOB, fever, chills, headache, change in vision, weakness , numbness, N,V feeling sick. She did eat prior to going to the wrestling match. She is not sure of her pills and is not sure what she took that day. She does write them down. Past Medical/Surgical History Medical Problems: (1) TRISH (acute kidney injury) Status: Acute (2) Syncope Status: Acute Social History Smoking Status: Unknown if ever smoked Alcohol Use: none Drug Use: none Marital Status: Housing Status: lives with family Occupation Status: employed, retired Allergies Coded Allergies: Latex1 -Allergic Contact Dermititis (Verified Allergy, Unknown, RASH, ) NO KNOWN DRUG ALLERGIES (Verified Allergy, Unknown, ., 01/06/17) Current Inpatient Medications Current Inpatient Medications Medications (Trade) Dose Ordered Sig/Jaziel Route Start Time Stop Time Status Last Admin Dose Admin Heparin Sodium (Porcine) (Heparin Sq 5000 Unit/0.5ml) 5,000 unit Q8H SQ 09/04/17 22:00 10/04/17 21:59 09/05/17 05:54 5,000 UNIT Sodium Chloride 1,000 ml @ 50 mls/hr Q20H IV 09/04/17 21:30 10/04/17 21:29 09/05/17 10:00 50 MLS/HR Acetaminophen (Tylenol Tab) 650 mg Q4H PRN PO 09/04/17 19:15 10/04/17 19:14 Ondansetron HCl (Zofran Inj) 4 mg Q6H PRN IV 09/04/17 19:15 10/04/17 19:14 Ceftriaxone Sodium 1 gm/ Dextrose 50 ml @ 100 mls/hr Q24H IV 09/04/17 22:00 09/09/17 21:59 09/04/17 21:51 100 MLS/HR Aspirin (Ecotrin Tab) 81 mg QAM PO 09/05/17 09:00 10/05/17 08:59 09/05/17 09:21 81 MG Atorvastatin Calcium (Lipitor Tab) 40 mg DAILY PO 09/05/17 09:00 10/05/17 08:59 09/05/17 09:20 40 MG Calcium/Vitamin D (Caltrate Plus Tab) 1 tab QAM PO 09/05/17 09:00 10/05/17 08:59 09/05/17 09:20 1 TAB Clopidogrel Bisulfate (plAVix TAB) 75 mg QAM PO 09/05/17 09:00 10/05/17 08:59 09/05/17 09:20 75 MG Levothyroxine Sodium (Synthroid Tab) 50 mcg DAILYBB PO 09/05/17 06:00 10/05/17 06:59 09/05/17 05:52 50 MCG Physical Exam Vital Signs (Past 24 Hrs): Date Time Temp Pulse Resp B/P (MAP) Pulse Ox O2 Delivery O2 Flow Rate FiO2 09/05/17 12:14 36.5 69 20 147/75 (99) 97 Room Air 09/05/17 12:00 Room Air 09/05/17 08:00 Room Air 09/05/17 07:39 36.7 64 18 106/64 (78) 94 Room Air 76 110/71 (84) 78 122/77 (92) 09/05/17 04:09 36.9 65 16 102/61 (75) 93 Room Air 09/05/17 04:00 98 Room Air 09/05/17 00:57 36.7 65 18 123/72 (89) 93 Room Air 09/05/17 00:00 98 Room Air 09/04/17 23:07 36.8 71 20 143/76 98 Room Air 09/04/17 21:00 75 20 153/77 97 Room Air 09/04/17 20:00 67 20 145/87 97 Room Air 09/04/17 19:00 69 20 136/85 98 Room Air 09/04/17 18:00 70 20 170/82 98 Room Air 09/04/17 16:50 78 20 145/80 98 Room Air 09/04/17 16:27 71 09/04/17 16:00 99 Room Air 09/04/17 15:45 36.6 71 20 125/65 98 Room Air Physical Exam: Constitutional: appearance nourished, healthy and normal Ears, Nose, Mouth and Throat: mucous membranes moist, no injection and skin normal, eyes normal Cardiovascular: normal S-1 and S-2 and regular rate and rhythm Respiratory: clear to auscultation (CTA) and no rales, rhonchi or wheeze Musculoskeletal: no peripheral edema and good distal pulses Skin: no stigmata of neurocutaneous disease noted and normal and intact Eyes: extraocular muscles intact (EOMI) and pupils equal, round and reactive to light (PERRL) NEUROLOGIC EXAMINATION: Mental status: Alert and interactive Oriented [place],, [facility], where she lives Oriented to person Speech fluent with no evidence of aphasia Cranial Nerves smile eye brow raise symmetric, tongue midline Reflexes: Deep tendon reflexes were symmetrical and graded 2/5. Plantar responses were flexor. Coordination: finger to nose no bi pass Gait/Stance: Posture normal. Gait normal: with steady with steps, base, turning, tandem gait. Motor: Negative for pronator drift of out stretched arms with eyes closed. 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 bilaterally hip flex bilaterally 5/5 Laboratory Results Past 24 Hours: 09/05/17 03:01 09/05/17 03:01 Test 09/04/17 16:20 09/04/17 18:10 09/05/17 03:01 Immature Granulocyte % (Auto) 0.2 % White Blood Count 6.46 K/uL (4.8-10.8) Red Blood Count 3.83 M/uL (4.2-5.4) 3.63 M/uL (4.2-5.4) Hemoglobin 11.6 g/dL (12.0-16.0) Hematocrit 35.0 % (37-47) Mean Corpuscular Volume 91.4 fL (80-100) 91.5 fL (80-100) Mean Corpuscular Hemoglobin 30.3 pg (25-34) 30.0 pg (25-34) Mean Corpuscular Hemoglobin Concent 33.1 g/dl (32-36) 32.8 g/dl (32-36) Platelet Count 224 K/uL (130-400) Mean Platelet Volume 8.8 fL (7.4-10.4) 8.6 fL (7.4-10.4) Neutrophils (%) (Auto) 66.8 % Lymphocytes (%) (Auto) 22.3 % Monocytes (%) (Auto) 9.6 % Eosinophils (%) (Auto) 0.9 % Basophils (%) (Auto) 0.2 % Neutrophils # (Auto) 4.32 K/uL (1.4-6.5) Lymphocytes # (Auto) 1.44 K/uL (1.2-3.4) Monocytes # (Auto) 0.62 K/uL (0.11-0.59) Eosinophils # (Auto) 0.06 K/uL (0-0.5) Basophils # (Auto) 0.01 K/uL (0-0.2) Immature Granulocyte # (Auto) 0.01 K/uL (0.00-0.02) Prothrombin Time 10.9 SECONDS (9.0-12.0) Prothromb Time International Ratio 1.0 (0.9-1.1) Activated Partial Thromboplast Time 23.1 SECONDS (21.0-31.0) Partial Thromboplastin Ratio 0.9 Total Bilirubin 0.3 mg/dl (0.2-1) Direct Bilirubin 0.1 mg/dl (0-0.2) Aspartate Amino Transf (AST/SGOT) 21 U/L (15-37) Alanine Aminotransferase (ALT/SGPT) 28 U/L (12-78) Alkaline Phosphatase 62 U/L (45-117) Pro-B-Type Natriuretic Peptide 281 pg/ml (0-900) Total Protein 6.6 gm/dl (6.4-8.2) Albumin 3.3 gm/dl (3.4-5.0) Lipase 326 U/L (73-393) Thyroid Stimulating Hormone (TSH) 2.450 uIu/ml (0.300-4.500) Urine Color YELLOW Urine Appearance CLOUDY (CLEAR) Urine pH 7.5 (4.5-7.5) Urine Specific [place] 1.019 (1.000-1.030) Urine Protein NEG (NEG) Urine Glucose (UA) NEG (NEG) Urine Ketones TRACE (NEG) Urine Occult Blood NEG (NEG) Urine Nitrite NEG (NEG) Urine Bilirubin NEG (NEG) Urine Urobilinogen NEG (NEG) Urine Leukocyte Esterase MODERATE (NEG) Urine WBC (Auto) >30 /hpf (0-5) Urine RBC (Auto) 0-4 /hpf (0-4) Urine Hyaline Casts (Auto) 1-5 /lpf (0-5) Urine Epithelial Cells (Auto) 0-5 /lpf (0-5) Urine Bacteria (Auto) 4+ (NEG) RDW Standard Deviation 46.1 fL (36.4-46.3) RDW Coefficient of Variation 13.8 % (11.5-14.5) Anion Gap 3.0 mmol/L (3-11) Est Creatinine Clear Calc Drug Dose 35.4 ml/min Estimated GFR () 46.3 Estimated GFR (Non- 40.0 BUN/Creatinine Ratio 25.6 (10-20) Calcium Level 8.7 mg/dl (8.5-10.1) Magnesium Level 2.1 mg/dl (1.8-2.4) Troponin I < 0.015 ng/ml (0-0.045) Imaging MRI combo-: Diffusion-weighted images are negative for an acute ischemic event. Mild cerebellar as well as cerebral atrophy unchanged in the prior study. Moderate periventricular and deep white matter chronic small vessel change. No evidence for an acute infarct based on diffusion images. A small midline meningioma is unchanged. No significant mass effect. carotid doppler- No evidence for a hemodynamically significant stenosis. CT head- No acute intracranial findings. No significant change since previous exam. Calvarial heterogeneity with innumerable lucent/lytic foci which is similar to prior exam. This remains indeterminate. TTE - Ejection Fraction = 60-65%. * The aortic valve is moderately calcified. * 2D images and doppler interrogation of the aortic valve are discordant. * Borderline mild aortic stenosis is suggested by doppler interrogation, however, the severity of aortic stenosis may be underestimated due to technical limitations. * There is severe mitral annular calcification. * There is mild mitral regurgitation. * There is mild tricuspid regurgitation. * Doppler findings do not suggest pulmonary hypertension. NO ASD CXR No acute cardiopulmonary findings. EEG- reveals at most mild nonspecific generalized abnormalities consistent with a low grade encephalopathy and possibly correlating with the patient's known diagnosis of dementia, but there are no lateralizing features and specifically no evidence for potentially epileptogenic activity is seen. Impression 67 year old female witnessed syncopal episode with no head trauma Plan 1. EEG with no seizure activity 2. TTE- no ASD- valvular stenosis 3. MRI with no acute findings 4. UTI -current treatment 5. dehydration- gentle hydration 6. no stroke or seizure activity 7. currently taking plavix and aspirin for previous TIA 8. no need for follow up with neurology no further recommendation I have seen and discussed above patient with Dr Estrella Garcia, neurology Pt seen and examined, no evidence of sz or stroke. suspect orthostasis. KELLY Garcia MD
[2017-09-05] MEDS: CEFTRIAXONE SOD INJ 1 GM in DEXTROSE 5% ADD-VANTAGE 50ML 50 ML IV SCH (21:31)
[2017-09-06] VITALS (10 sets, daily range): BP systolic 114–144; BP diastolic 70–85; PULSE 62–71; TEMP 36.4–36.7; O2SAT 93–98
[2017-09-06] MEDS: LEVOTHYROXINE 50 MCG TAB PO SCH (05:52)
[2017-09-06] MEDS: SODIUM CHLORIDE 0.9% 1000ML 1,000 ML IV SCH (05:52)
[2017-09-06] MEDS: HEPARIN SOD 5000 UNIT/0.5 ML CARP SQ SCH ×2 (06:29→14:02)
[2017-09-06 07:34] LABS: HEMATOCRIT 33.6 % (37-47); HEMOGLOBIN 11.2 g/dL (12.0-16.0); MEAN CELL VOLUME 90.3 fL (80-100); MEAN CORPUSCULAR HEMOGLOBIN 30.1 pg (25-34); MEAN CORPUSCULAR HGB CONC 33.3 g/dl (32-36); MEAN PLATELET VOLUME 9.2 fL (7.4-10.4); PLATELET COUNT 230 K/uL (130-400); RED CELL DISTRIBUTION WIDTH CV 13.7 % (11.5-14.5); RED CELL DISTRIBUTION WIDTH SD 45.2 fL (36.4-46.3); WHITE BLOOD COUNT 5.12 K/uL (4.8-10.8)
[2017-09-06] MEDS: CALCIUM 600MG + VIT D 400 IU TAB PO SCH (08:50)
[2017-09-06] MEDS: CLOPIDOGREL BISULFATE 75 MG TAB PO SCH (08:50)
[2017-09-06] MEDS: ASPIRIN 81 MG ECTAB PO SCH (08:50)
[2017-09-06] MEDS: ATORVASTATIN 40 MG TAB PO SCH (08:50)
[2017-09-06 09:16] LABS: CALCIUM 8.7 mg/dl (8.5-10.1); CREATININE 1.05 mg/dl (0.60-1.20); POTASSIUM 3.8 mmol/L (3.5-5.1)
--- NOTE | 2017-09-06 15:12 | Discharge Instructions ---
Discharge Instructions Date of Service Sep 06, 2017. Admission Reason for Admission: Robbie, Syncope Discharge Discharge Diagnosis / Problem: SYNCOPE /DEHYDRATION /ACUTE RENAL FAILURE - RESOLVED Discharge Goals Goal(s): Decrease discomfort, Improve disease control, Diagnostic testing, Therapeutic intervention Activity Recommendations Activity Limitations: resume your previous activity . Instructions / Follow-Up Instructions / Follow-Up HOSPITAL FOLLOW UP: 09/13/2017 11:10 AM Max Pendleton DO [facility] PLEASE DRINK PLENTY OF FLUID TO PREVENT DEHYDRATION Current Hospital Diet Patient's current hospital diet: AHA Diet (Heart Healthy) Discharge Diet Recommended Diet: AHA Diet (Heart Healthy) Pending Studies Studies pending at discharge: no Medical Emergencies . Who to Call and When: Medical Emergencies: If at any time you feel your situation is an emergency, please call 911 immediately. . Non-Emergent Contact Non-Emergency issues call your: Primary Care Provider . . "Provider Documentation" section prepared by Lakshmi Fuentes. . VTE Core Measure Inpt VTE Proph given/why not?: Enoxaparin (Lovenox)SQ
--- NOTE | 2017-09-06 15:46 | Discharge Summary ---
Discharge Summary Date of Service Sep 06, 2017. Discharge Summary Admission Date: Sep 04, 2017 at 19:18 Discharge Date: Sep 06, 2017 Discharge Disposition: Home with services Principal Diagnosis: SYNCOPE /DEHYDRATION /ACUTE RENAL FAILURE -RESOLVED Procedures: CT HEAD WITH OUT CONTRAST : IMPRESSION: 1. No acute intracranial findings. No significant change since previous exam. 2. Calvarial heterogeneity with innumerable lucent/lytic foci which is similar to prior exam. This remains indeterminate. MRI OF BRAIN no acute intracranial findings CAROTID DOPPLER BILATERAL : no hemodynamically significant narrowing or stenosis ECHO : Ejection Fraction = 60-65%. The aortic valve is moderately calcified. 2D images and doppler interrogation of the aortic valve are discordant. Borderline mild aortic stenosis is suggested by doppler interrogation, however, the severity of aortic stenosis may be underestimated due to technical limitations. There is severe mitral annular calcification. There is mild mitral regurgitation. There is mild tricuspid regurgitation. Doppler findings do not suggest pulmonary hypertension. Consultations: NEUROLOGY DR LA Medication Reconciliation Continued Medications: Aspirin (Aspirin Ec) 81 Mg Tab 81 MG PO QAM Atorvastatin (Lipitor) 40 Mg Tab 40 MG PO DAILY, TAB Calcium/Vitamin D (Os-Tobias 500 Plus D) Tab 1 TAB PO QAM Clopidogrel (Plavix) 75 Mg Tab 75 MG PO QAM Levothyroxine Sodium (Synthroid) 50 Mcg Tab 50 MCG PO QAM Lisinopril (Prinivil) 10 Mg Tab 10 MG PO QAM Multivitamin (Multivitamin) Tab 1 TAB PO QAM [place]-3 Fatty Acids (Fish Oil) 1,000 Mg Cap 1000 MG PO BID Admission Information HPI (per Admitting provider): Patient is a 67 yr female with PMH of multiple TIAs, CKD III, Acute lymphoid leukemia, Meningioma, HTN, Hypothyroidism, dementia and other problems presents with history of a witnessed syncopal episode today. As per the patient and her family, patient was watching a wrestling match and suddenly felt lightheaded and lost consciousness for about 1-2 minutes as per family. She states she felt lightheaded and had to sit down prior to LOC but denies any fall, head trauma. Also reports had urinary incontinence and felt clammy during the episode. Family denies noticing and seizure like activity. Patient/family denies any tongue biting, speech problems, vertigo, facial deformity, chest pain, SOB, fever, chills, headache, change in vision, weakness, numbness, double/blurry vision, nausea, vomiting, abdominal pain, diarrhea, change in appetite, dysuria , recent change in medications. She reports having chronic cough and constipation. Also reports that she slipped and fell yesterday and bruised her left upper extremity but no LOC Yesterday. She has taken her ASA and Plavix today. Physical Exam (per Admitting): General Appearance: WD/WN, no apparent distress Head: normocephalic, atraumatic Eyes: normal inspection, PERRL, EOMI, sclerae normal ENT: normal ENT inspection, hearing grossly normal Neck: supple, trachea midline Respiratory/Chest: chest non-tender, lungs clear, normal breath sounds, no respiratory distress, no accessory muscle use Cardiovascular: regular rate, rhythm, no edema, no murmur Abdomen/GI: normal bowel sounds, non tender, soft Back: normal inspection Extremities/Musculoskelatal: normal inspection, no pedal edema, + pertinent finding (LUE echymosis and abrasion ) 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, no motor/sensory deficits, alert , normal mood/affect, oriented x 3 Skin: normal color, warm/dry Hospital Course feels absolutely fine ,no dizzy spell , no weakness walked 500 ft with physical therapy without any evidence of loss of balance independent in her ADL's as per OT eager to be discharged home evaluated by Neurology -no neurological deficit noted no further test or intervention needed PHYSICAL EXAM : GEN : no sign of distress, comfortable HEENT : sclera non icteric , PERRLA/EOMI HT ; regular S1/s2 , no carotid bruit , no lower ext edema LUNGS : CTA ,no wheeze or rales ABDOMEN ; soft, non tender , bowel sound active EXT : no rash or deformity NEURO : AAO x3 ,no focal neurological deficit Last 8 Hrs Date Time Temp Pulse Resp B/P (MAP) Pulse Ox O2 Delivery O2 Flow Rate FiO2 09/06/17 15:28 36.5 66 18 144/78 (100) 96 Room Air 09/06/17 12:00 98 Room Air 09/06/17 10:59 36.4 71 19 130/85 (100) 96 Room Air 09/06/17 08:00 98 Room Air A/P : Syncope: Likely Vasovagal due to dehydration completely symptom free now no evidence of Sz , EEG -wnl CT head: No acute intracranial findings MRI Brain:No acute intracranial abnormality. Chronic and age-related change Telemetry: No rhythm issues since hospitalization Carotid Ultrasound:No evidence for a hemodynamically significant stenosis. Neurology consulted-appreciate input , no further work up needed, possible vasovagal syncope associated with dehydration pt mentions of drinking a cup of water with each meal , does not drink any additional fluid in between pt is asked to increase intake of fluid /beverages -increased risk of dehydration during cold weather -due to constant heating indoors pt verbalized understanding TRISH on CKD III: due to dehydration Denies NSAIDs use resolved with IV hydration Cr:2.13>>>1.35->>1.05 pt is asked to increase fluid intake H/O TIAs/ ?CVA No focal deficits from prior TIA detail imaging MRI brain -no new event Continue Aspirin, Plavix, statins Acute lymphoid leukemia: H/O Meningioma as per records S/P Radiation therapy, Bone marrow transplant Previously followed with Currently not on any meds HTN: Stable lisinopril resumed as renal function improved to baseline Hypothyroidism: TSH: normal Continue levothyroxine DVT Px: Heparin SQ Code Status: DNI Disposition: Discharged home today Medicine follow up with Dr Max Pendleton Total time spent on discharge = This includes examination of the patient, discharge planning, medication reconciliation, and communication with other providers. Discharge Instructions Discharge Instructions Date of Service Sep 06, 2017. Admission Reason for Admission: Trish, Syncope Discharge Discharge Diagnosis / Problem: SYNCOPE /DEHYDRATION /ACUTE RENAL FAILURE - RESOLVED Discharge Goals Goal(s): Decrease discomfort, Improve disease control, Diagnostic testing, Therapeutic intervention Activity Recommendations Activity Limitations: resume your previous activity . Instructions / Follow-Up Instructions / Follow-Up HOSPITAL FOLLOW UP: 09/13/2017 11:10 AM Max Pendleton, [facility] PLEASE DRINK PLENTY OF FLUID TO PREVENT DEHYDRATION Current Hospital Diet Patient's current hospital diet: AHA Diet (Heart Healthy) Discharge Diet Recommended Diet: AHA Diet (Heart Healthy) Pending Studies Studies pending at discharge: no Medical Emergencies . Who to Call and When: Medical Emergencies: If at any time you feel your situation is an emergency, please call 911 immediately. . Non-Emergent Contact Non-Emergency issues call your: Primary Care Provider . . "Provider Documentation" section prepared by Lakshmi Fuentes. . VTE Core Measure Inpt VTE Proph given/why not?: Enoxaparin (Lovenox)SQ Additional Copies To Max Pendleton D.O.
== END 2017-09-06 16:45 | disposition home or self-care (01) | DRG 312 ==
LOC: EDBD 15:32 → C.EDA 15:33 → C.2T 19:18 → ENRESERV 19:27
PROVIDERS: ADMIT Internal Medicine; ATTEND Hospitalist
DX: R55 Syncope and collapse (principal); N17.9 Acute kidney failure, unspecified; N39.0 Urinary tract infection, site not specified; C91.00 Acute lymphoblastic leukemia not having achieved remission; N18.3 Chronic kidney disease, stage 3 (moderate); R56.9 Unspecified convulsions; Z79.82 Long term (current) use of aspirin; Z86.73 Personal history of transient ischemic attack (TIA), and cerebral infarction without residual deficits; I10 Essential (primary) hypertension; Z82.49 Family history of ischemic heart disease and other diseases of the circulatory system; Z82.0 Family history of epilepsy and other diseases of the nervous system

== ENCOUNTER → 2018-03-15 | Outpatient (CLI) | payer OTHER ==
--- NOTE | 2018-03-16 08:10 | MAMMOGRAPHY REPORT ---
BILATERAL DIGITAL SCREENING MAMMOGRAM TOMOSYNTHESIS WITH CAD: 03/15/2018 CLINICAL HISTORY: Routine screening. Patient has no complaints. TECHNIQUE: The study was acquired using full field digital technology and interpreted from soft copy. Tomosynthesis (3D imaging) was done in the CC and MLO projections. A C-view reconstruction was then done. Current study was also evaluated with a Computer Aided Detection (CAD) system. COMPARISON: Comparison is made to exams dated: 02/24/2017 mammogram, 02/10/2016 mammogram, 02/07/2015 m ammogram, 02/06/2014 mammogram, 02/13/2013 mammogram, and 02/05/2013 mammogram - [facility] enter. BREAST COMPOSITION: There are scattered areas of fibroglandular density in both breasts. FINDINGS: A linear scar marker overlies the superior left breast. The glandular pattern is similar t o prior mammograms. There are mild vascular calcifications and scattered punctate micro calcificatio ns bilaterally. No new suspicious mass, architectural distortion or cluster of microcalcifications is seen. IMPRESSION: ACR BI-RADS CATEGORY 1: NEGATIVE There is no mammographic evidence of malignancy. A 1 year screening mammogram is recommended.( 019) The patient will receive written notification of the results. Approximately 10% of breast cancers are not detected with mammography. A negative mammographic report should not delay biopsy if a clinically suggestive mass is present. Monae Ron M.D. ay/:03/15/2018 12:51:06 Loading Machine Operator: Blanca Milligan, [facility] letter sent: Normal 1/2 BI-RADS Code: ACR BI-RADS Category 1: Negative
== END | disposition home or self-care (01) ==
LOC: C.MAMM 10:23
PROVIDERS: ATTEND Family Medicine
DX: Z12.31 Encounter for screening mammogram for malignant neoplasm of breast (principal)

== ENCOUNTER 2020-05-01 08:44 | Inpatient (IN) ==
[2020-05-01] MEDS ORDERED: SODIUM CHLORIDE 0.9% 500 ML IV SCH (09:00)
[2020-05-01] MEDS ORDERED: SODIUM CHLORIDE 0.9% 1000ML 1,000 ML IV SCH ×2 (09:00→17:31)
[2020-05-01 09:25] LABS: Appearance Urine Clear (Clear); Bilirubin Urine Negative (Negative); Blood Urine Negative (Negative); Color Urine Yellow; Glucose Urine UA Negative (Negative); Ketones Urine Negative (Negative); Leukocyte Esterase Urine Negative (Negative); Nitrite Urine Negative (Negative); Protein Urine Negative (Negative); Specific Gravity Urine 1.018 (1.000-1.030); Urobilinogen Urine Negative (Negative); pH Urine 5.5 (4.5-7.5)
--- NOTE | 2020-05-01 10:16 | XRay Report ---
XR chest 1V portable HISTORY: weakness COMPARISON: Chest 04/30/2020. FINDINGS: The cardiac silhouette is normal in size. Mitral annulus calcifications are again noted. No pleural effusions. No pneumothorax. No new focal lung consolidations to suggest pneumonia. No eviden ce for pulmonary edema. A few bibasilar linear densities favor subsegmental atelectasis or scarring. IMPRESSION: No acute process. ACT 112: Negative or not required by law. Electronically signed by: Adolfo Coates M.D. 05/01/2020 10:15 AM
[2020-05-01 10:18] LABS: Basophils # (auto) 0.01 K/uL (0-0.2); Basophils % (auto) 0.1 %; Hematocrit (blood only) 38.4 % (37-47); Hemoglobin 12.7 g/dL (12.0-16.0); Immature Granulocytes # (auto) 0.02 K/uL (0.00-0.02); Immature Granulocytes % (auto) 0.2 %; Lymphocytes % (auto) 10.5 %; Mean Corpuscular Hemoglobin 30.2 pg (25-34); Mean Corpuscular Hgb Conc 33.1 g/dL (32-36); Mean Corpuscular Volume 91.2 fL (80-100); Mean Platelet Volume 9.4 fL (7.4-10.4); Monocytes # (auto) 0.88 K/uL (0.11-0.59); Monocytes % (auto) 7.7 %; Neutrophils # (auto) 9.36 K/uL (1.4-6.5); Neutrophils % (auto) 81.5 %; Platelet Count 233 K/uL (130-400); RDW Coefficient of Variation 14.5 % (11.5-14.5); RDW Standard Deviation 48.5 fL (36.4-46.3); Red Blood Count 4.21 M/uL (4.2-5.4); White Blood Count 11.47 K/uL (4.8-10.8)
[2020-05-01 10:37] LABS: Alanine Aminotransferase 56 U/L (12-78); Albumin Level 3.5 gm/dl (3.4-5.0); Aspartate Aminotransferase 57 U/L (15-37); BUN Creatinine Ratio 23.7 (10-20); Blood Urea Nitrogen 37 mg/dl (7-18); Calcium 9.3 mg/dl (8.5-10.1); Carbon Dioxide 26 mmol/L (21-32); Chloride 105 mmol/L (98-107); Creatinine Clr Calc Pharmacy 28.5 ml/min; Est GFR (Non-African American) 32.8; Glucose 100 mg/dl (70-99); Magnesium 2.2 mg/dl (1.8-2.4); Potassium 4.4 mmol/L (3.5-5.1); Sodium 140 mmol/L (136-145)
[2020-05-01 10:50] LABS: Albumin Globulin Ratio 0.8 (0.9-2); Alkaline Phosphatase 72 U/L (45-117); Bilirubin,Total 0.8 mg/dl (0.2-1); Creatine Kinase 348 U/L (26-192); Globulin 4.2 gm/dl (2.5-4.0); Thyroid Stimulating Hormone 0.593 uIu/ml (0.300-4.500); Total Protein 7.7 gm/dl (6.4-8.2); Troponin I < 0.015 ng/ml (0-0.045)
[2020-05-01] MEDS ORDERED: IOVERSOL 100ml IV ONE (11:04)
--- NOTE | 2020-05-01 11:21 | CT Scan Report ---
HEAD CT NONCONTRAST CT DOSE: HISTORY: Altered mental status. Weakness. TECHNIQUE: Multiaxial CT images of the head were performed without the use of intravenous contrast. A utomated exposure control was utilized for this study. A dose lowering technique was utilized adheri ng to the principles of ALARA. Comparison: Head CT 04/30/2020. Head CT 02/10/2017. Findings: Moderate mucosal thickening and a small fluid level within the right maxillary sinus, uncha nged. The mastoid air cells are clear. The calvarium and skull base are intact. There is no hematoma, midline shift, acute infarct. White matter hypodensity is nonspecific but suggestive of microvascula r ischemic change. The ventricles and sulci demonstrate mild age-related involutional changes. Hetero geneous appearance to the calvarium, unchanged. This may represent osteopenia. 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 Stable 1 cm left frontal parafalcine slightly dense extra-axial lesion. This fa vors a meningioma given the long-term stability. This is best seen on image 18. Impression: No significant change compared to the prior study. No acute intracranial abnormality. Chronic finding s as described above. ACT 112: Negative or not required by law. Electronically signed by: Adolfo Coates M.D. 05/01/2020 11:19 AM
--- NOTE | 2020-05-01 11:31 | CT Scan Report ---
CT OF THE ABDOMEN AND PELVIS WITH CONTRAST CLINICAL HISTORY: ecchymosis right flank and buttocks COMPARISON STUDY: None. TECHNIQUE: Following IV administration of 94 mL of Optiray-320, axial images of the abdomen and pelvi s were obtained from the lung bases to the proximal femurs. Images were reviewed in the axial, sagitt al, and coronal planes. IV contrast was administered without complication. Automated exposure contro l was utilized for the study. A dose lowering technique was utilized adhering to the principles of A PENNY. CT DOSE: 920.65 mGy.cm FINDINGS: Imaged portions of the lower chest demonstrate mild bronchial wall thickening with mild air space opacity within the right lower lobe. No pneumatosis, free air or portal venous gas is present. There are gallstones within the gallbladder. There is no pericholecystic infiltration. The liver, spl een, adrenal glands, kidneys and pancreas are unremarkable. There is no biliary or pancreatic ductal dilatation. There is no hydronephrosis. Colonic diverticulosis is noted without evidence for acute di verticulitis. Images of the pelvis are degraded by streak artifact from hip arthroplasties. Note is m raine of a 7.2 x 4.8 cm cystic left adnexal lesion which is at least contains a septation. Garcia balloo n is present within the bladder. There is lucency within the anterior right acetabulum adjacent to th e acetabular cup. There is also lucency adjacent to the femoral component of the right hip arthroplas ty. No acute fractures are identified within visualized skeletal structures. There is no lymphadenopa thy or ascites. Sacroiliac joints and symphysis pubis are intact. IMPRESSION: 1. No acute traumatic findings within the abdomen or pelvis. 2. Cholelithiasis. 3. 7.2 x 4.8 cm cystic left adnexal lesion which contains at least one septation. This is considered pathologic in a postmenopausal patient and a follow-up nonemergent pelvic ultrasound to evaluate for complexity is recommended. 4. Lucency within the anterior wall of the right acetabulum adjacent to the acetabular cup of the rig ht hip arthroplasty. This could reflect osteolysis. Lucency adjacent to the femoral component of the right hip arthroplasty raises the possibility of loosening. 5. Bronchial wall thickening and mild airspace opacities within the right lower lobe. ACT 112: Negative or not required by law. Electronically signed by: Ric Mancera M.D. 05/01/2020 11:29 AM
--- NOTE | 2020-05-01 13:13 | CT Scan Report ---
CT OF THE CHEST WITHOUT IV CONTRAST CLINICAL HISTORY: cough, hypoxia, aspiration? AMS COMPARISON STUDY: Chest CT September 08, 2011. Chest radiograph performed earlier today. CT DOSE: 273.64 mGy.cm TECHNIQUE: Axial images of the chest were obtained without IV contrast. Images were reviewed in the axial, sagittal, and coronal planes. IV contrast was not administered for this examination. Automat ed exposure control was utilized for the study. A dose lowering technique was utilized adhering to t he principles of ALARA. FINDINGS: This study is mildly compromised by motion artifact. Mild cardiomegaly is noted. Extensive mitral annular calcification is noted. There is moderate coronary artery calcific lesion. No pericar dial effusion is noted. There is no pneumothorax or pleural effusion. Calcified mediastinal and bilat eral hilar lymph nodes are noted. These were shown on prior CT. Central airways are patent. Mild bron chial wall thickening is most evident within the right lower lobe. There are scattered mild tree-in-b ud nodules within the lungs. These are decreased when compared to earlier CT of September 08, 2011. No lobar consolidation is noted. There is no cavitation. Contrast within the collecting systems is from recent contrast-enhanced CT. IMPRESSION: 1. Scattered mild tree-in-bud nodules within the lungs which suggest a mild bronchiolitis. 2. Exam mildly compromised by motion artifact. 3. Mild cardiomegaly. 4. Evidence for a previous granulomas process. ACT 112: Negative or not required by law. Electronically signed by: Ric Mancera M.D. 05/01/2020 12:54 PM
[2020-05-01] MEDS ORDERED: PIPERACILL/TAZOBAC CONSULT ACTIVE PRN (14:07)
--- NOTE | 2020-05-01 14:07 | History & Physical Report ---
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 Admit to med tele IV antibiotics with IV zosyn and doxycycline IV methylprednisolone 40mg IV BID covid -19 and biofire screen ordered Aspiration precautions sputum culture O2 as needed pulmonary toilet with albuterol neb prn, flutter valve, incentive spirometry NPO until dysphagia screen ordered (3) Weakness: consult PT/OT when able tick borne disease screen ordered as well likely in setting of underlying illness (4) HTN (hypertension): blood pressure stable hold lisinopril until renal fxn and pressure re evaluated in a.m. will alert nursing staff to notify provider if SBP > 170 or < 100 (5) CKD (chronic kidney disease) stage 3, GFR 30-59 ml/min: with Acute renal insufficient Baseline creatinine 1.3-1.4 creatinine 1.57 on this ED presentation Patient with mild renal insufficiency likely in setting of dehydration/poor p.o. intake Gentle IVF 75 cc/h x 2 L Repeat in a.m. (6) History of CVA (cerebrovascular accident): old L parietal infarct on imaging continue asa, plavix and statin when passes dysphagia screen (7) Hypothyroidism: continue levothyroxine TSH 0.5 today, obtain free T4 prior TSH typically 2-3 repeat in 2-4 weeks if remains low normal consider reduction in dose given advanced age (8) Adnexal mass: Incidental left adnexal mass noted on CT of abdomen pelvis 7.2 x 1.8 cm cystic with septation Recommend nonemergent transvaginal ultrasound when more stable for the outpatient (9) Lucency of femoral head on x-ray: Lucency noted on femoral head of right hip, questionable concern for loosening of right hip arthroplasty When patient clinical condition improves and is evaluated by PT consider Ortho eval, may also be done as outpatient (10) Dementia: Likely vascular in origin given history of stroke and chronic microvascular changes Monitor for acute hospital delirium (11) DVT prophylaxis: SQ heparin Disposition: admit to med tele Follow up: PCP Dr. Pendleton upon discharge Pt was seen and examined in collaboration with Dr. Castañeda, please see addendum History of Present Illness Chief Complaint: Cough x 4 days. 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 Case was discussed with the ED provider who provided history for today's and yesterday's visit. Apparently patient came to ER yesterday secondary to increased weakness and listlessness. Per physical exam she did have rhonchi and was felt to have a mild bout of bronchitis. She was placed on oral azithromycin and discharged to home. Apparently when discharged home had to carry her into the house and placed her in a recliner. She remained in recliner the rest of the evening and was unable to get up. Due to worsening symptoms and weakness EMS was summoned again today. According to report patient does have history of mild dementia at baseline but is otherwise independent ADLs and is able to ambulate without device at baseline. She is otherwise poor historian and only alert to self. Patient currently complains of cough, productive in nature, apparent for 4 days. She also elicits increased weakness, lethargy and fatigue. He denies documented fever, chills, sweats, lightheadedness, dizziness, syncope or fall, chest pain, shortness of breath, nausea, vomiting, abdominal pain. She does complain of mild dysuria but denies of any hematuria, melena, dyschezia, diarrhea. Again history unreliable due to cognition. In ED she did remain hemodynamically stable. Notable lab abnormalities include worsening leukocytosis 11.4 7K, BUN 37, creatinine 1.57, glucose 100, AST 57, CK 348. Her urinalysis was generally unremarkable. Initial chest x-ray Negative for acute abnormality. Head CT was performed and compared to yesterday's exam which revealed chronic findings of old left parietal infarct and microvascular ischemic changes. No other acute abnormality noted. CT abdomen pelvis revealed 7.2 x 4.8 cm incidental finding of a cystic left adnexal lesion concerning for pathologic and recommending nonemergent pelvic ultrasound. Also noted was airspace opacity of right lower lobe, lucency to right hip arthroplasty. This was concerning for loosening. CT chest was performed Revealed scattered mild tree-in-bud nodules in the lungs suggesting a mild bronchiolitis. Allergies Allergy/AdvReac Type Severity Reaction Status Date / Time latex Allergy Unknown RASH Verified 05/01/20 10:43 No Known Drug Allergies Allergy Unknown . Verified 05/01/20 10:43 Home Medications Home Medications Medication Instructions Recorded Confirmed Type aspirin [Aspir-81] 81 mg PO QAM 10/06/18 05/01/20 History atorvastatin 40 mg PO QAM 10/06/18 05/01/20 History calcium carbonate-vitamin D3 1 tab PO QAM 10/06/18 05/01/20 History [Os-Tobias 500 + D3] clopidogrel 75 mg PO QAM 10/06/18 05/01/20 History levothyroxine 50 mcg PO QAM 10/06/18 05/01/20 History lisinopril 10 mg PO QAM 10/06/18 05/01/20 History multivitamin [Multiple Vitamins] 1 tab PO QAM 10/06/18 05/01/20 History omega 2-nov-amy-fish oil [Fish Oil] 1 cap PO QAM 10/06/18 05/01/20 History azithromycin [Zithromax] 250 mg PO QAM 05/01/20 05/01/20 History Past Med/Surg History Medical History CKD (chronic kidney disease) stage 3, GFR 30-59 ml/min Dementia History of acute lymphoid leukemia History of adenomatous polyp of colon History of CVA (cerebrovascular accident) History of TIA (transient ischemic attack) HTN (hypertension) Meningioma " interhemispheric frontal mass 4 x 9 mm per MRI 01/25/14" Surgical History (Updated 05/01/20 @ 14:09 by Hanane Gregorio PA-C) 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 History of sinus surgery Status post bilateral hip replacements Family History Other Family history unobtainable due to patient's condition Social History (Updated 09/03/20 @ 14:10 by Hanane Gregorio PA-C) Smoking Status: Never smoker Second Hand Exposure: No; Do You Dip or Chew Tobacco: No; Tobacco Cessation Education Requested by Patient: No Hx Alcohol Use: No Hx Substance Use: No Preferred Language: Singaporean Communication Ability: Impaired Binding End Stitcher Required: No Beliefs That Will Affect Care: None marital status: Current Living Situation: Spouse current occupational status: retired Other Information That Helps Us Care for You: No Feels Safe at Home: Yes Safety Concerns: Feels Safe At This Time Review of Systems Review of Systems: All systems reviewed & are unremarkable except as noted in HPI & below Physical Exam Physical Exam: Constitutional: Thin, petite, F, vitals as above, NAD, sitting up in bed, answers questions but oriented to self only,large amount of sputum on L lower chin Head: Normocephalic, Atraumatic Eyes: PERRL, conjunctivae normal, anicteric sclerae ENMT: hard of hearing, external ear and nose normal, oropharynx normal Neck: trachea midline, no thyromegaly normal visual inspection Respiratory: shallow respirations, lungs clear to auscultation with rhonchi noted to RLL, no wheeze, rales. On O2 3L via oxymask. Normal insp/exp effort, no accessory muscle use Cardiovascular: RRR, no murmur, no edema Vessels: no JVD or carotid bruit Chest: normal inspection of chest Abdomen: normal bowel sounds, soft, nontender, no hepatosplenomegaly Musculoskeletal: no cyanosis or clubbing, extremities motor strength 5/5 Skin: no rashes, warm and dry normal turgor Neurologic: PERRL, EOMI, accommodation nl, no face palsy, no dysarthria CN's II-XI intact bilaterally and moves all extremities Psychiatric: A+Ox1 self only, understands she is in hospital but thinks [place], euthymic affect Lymphatic: no cervical or axillary lymphadenopathy :kat cath with abel urine Results & Data Results & Data ([facility]) Vital Signs (Past 12 Hours) Vital Signs Temp Pulse Pulse Resp BP BP Pulse Ox 05/01/20 13:00 84 20 135/78 93 05/01/20 11:57 88 20 144/83 H 96 05/01/20 11:00 89 20 147/81 H 98 05/01/20 10:55 88 L 05/01/20 10:53 89 L 05/01/20 09:56 93 H 18 154/87 H 99 05/01/20 09:49 98 05/01/20 09:38 91 05/01/20 09:13 36.3 C L 89 20 152/85 H 93 Laboratory Results Short CBC 05/01/20 05/01/20 Range/Units 09:50 09:50 WBC 11.47 H (4.8-10.8) K/uL Hgb 12.7 (12.0-16.0) g/dL Hct 38.4 (37-47) % Plt Count 233 (130-400) K/uL Creatinine 1.57 H D (0.6-1.2) mg/dl TSH 0.593 (0.300-4.500) uIu/ml BMP 05/01/20 09:50 Sodium 140 Potassium 4.4 Chloride 105 Carbon Dioxide 26 BUN 37 H Creatinine 1.57 H D Glucose 100 H Calcium 9.3 Cardiac Enzymes 05/01/20 Range/Units 09:50 Total Creatine Kinase 348 H (26-192) U/L Troponin I < 0.015 (0-0.045) ng/ml Liver Function 05/01/20 Range/Units 09:50 Total Bilirubin 0.8 (0.2-1) mg/dl AST 57 H (15-37) U/L ALT 56 (12-78) U/L Alkaline Phosphatase 72 (45-117) U/L Albumin 3.5 (3.4-5.0) gm/dl Urine 05/01/20 Range/Units 09:10 Urine Color Yellow Urine Appearance Clear (Clear) Urine pH 5.5 (4.5-7.5) Ur Specific [place] 1.018 (1.000-1.030) Urine Protein Negative (Negative) Urine Glucose (UA) Negative (Negative) Diagnostic Findings Head CT: Impression: No significant change compared to the prior study. No acute intracranial abnormality. Chronic findings as described above. CT abd/pelvis: IMPRESSION: 1. No acute traumatic findings within the abdomen or pelvis. 2. Cholelithiasis. 3. 7.2 x 4.8 cm cystic left adnexal lesion which contains at least one septation. This is considered pathologic in a postmenopausal patient and a follow-up nonemergent pelvic ultrasound to evaluate for complexity is recom mended. 4. Lucency within the anterior wall of the right acetabulum adjacent to the acetabular cup of the right hip arthroplasty. This could reflect osteolysis. Lucency adjacent to the femoral component of the right hip arthroplasty raises the possibility of loosening. 5. Bronchial wall thickening and mild airspace opacities within the right lower lobe. CXR: IMPRESSION: No acute process. Chest CT: IMPRESSION: 1. Scattered mild tree-in-bud nodules within the lungs which suggest a mild bronchiolitis. 2. Exam mildly compromised by motion artifact. 3. Mild cardiomegaly. 4. Evidence for a previous granulomas process. Medications Administered Sodium Chloride (Nss 1000ml) 1,000 mls @ 125 mls/hr IV .Q8H MORENITA Stop: 05/01/20 16:59 Last Admin: 05/01/20 12:43 Dose: 125 mls/hr Documented by: [id number] Discontinued Medications Sodium Chloride (Nss) 500 mls @ 999 mls/hr IV .Q31M MORENITA Stop: 05/01/20 09:30 Last Infusion: 05/01/20 10:20 Dose: 0 mls/hr Documented by: [id number] Admin: 05/01/20 09:48 Dose: 999 mls/hr Documented by: [id number] Ioversol (Ioversol 100ml) 94 ml IV ONCE ONE Stop: 05/01/20 11:05 Last Admin: 05/01/20 11:04 Dose: 94 ml Documented by: [id number] ECG Rate (beats per minute): 92 Rhythm: normal sinus Findings: + prolonged QT (qtc 462ms) Code Status & VTE Plan Code Status Full Code VTE Prophylaxis Plan VTE Prophylaxis will be ordered: Yes Supervising Physician Co-Signing Physician Notes I, Dr. Jay Castañeda, have seen and examined the patient Melania Avilez and also discussed the plans with physician magistrate assistant On Physical Exam General/Neurological: no acute distress, some cough with sputum, talking, answers questions appropriately, follows directions, able to sit up on her own power for lung exam HEENT: extraoccular movements intact Lungs: no wheezing, good air entry on inhalation and exhalation Heart: regular rate Abdomen: soft, nontender, positive bowel sounds : has kat Assessment and plan ACUTE BRONCHITIS ACUTE RESPIRATORY FAILURE WITH HYPOXIA -CT Chest 1. Scattered mild tree-in-bud nodules within the lungs which suggest a mild bronchiolitis. 2. Exam mildly compromised by motion artifact. 3. Mild cardiomegaly. 4. Evidence for a previous granulomas process. -obtain sputum culture, follow other culture results, oxygen as needed, nebulizers prn, IV antibiotics for respiratory coverage as Zosyn and Doxycycline for now, IV solumedrol 40 mg q12 hours -intermittent suction as needed, dysphagia screening, aspiration precautions -COVID 19 testing ordered -patient may have kat removed when more ambulatory -case management consult / PT and OT evaluations -DVT prophylaxis with heparin subcutaneous -possible left adnexal cyst and will need non emergent follow up imaging -agree with other assessment and plans as documented by physician magistrate assistant -My hospitalist colleague Dr. Mccollum will be following the patient starting on 05/02/2020
[2020-05-01 14:30] LABS: Lyme Ab IgM w/WB Rflx Negative (Negative)
[2020-05-01 14:33] LABS: Lyme Ab IgG w/WB Rflx Negative (Negative)
[2020-05-01 14:57] LABS: Procalcitonin 0.12 ng/ml (0-0.5)
[2020-05-01] MEDS: DOXYCYCLINE HYCLATE 100 MG in DEXTROSE 5% 100 ML IV SCH (15:41)
--- NOTE | 2020-05-01 16:53 | Emergency Department Note ---
History of Present Illness General Chief complaint: Lethargic Time Seen by Provider: 05/01/20 08:56 Source: EMS and RN notes reviewed Mode of arrival: EMS Limitations: altered mental status and clinical acuity History of Present Illness Provider complaint: Altered mental status Maximum Pain Intensity: 0 This patient is a 69-year-old female who presents to the emergency department by EMS. No family is with the patient however apparently the ambulance was called for generalized weakness and altered mentation. The patient was discharged from the emergency department yesterday with an apparent bronchitis. She was treated with a azithromycin. Attempt was made to contact the patient's but the line is busy. Patient is not able to provide history. Patient was found in the same recliner EMS found her in yesterday. She is currently denying complaints but is unreliable. Of note patient is found to be incontinent of urine and stool. Home Medications Home Medications Medication Instructions Recorded Confirmed Type aspirin [Aspir-81] 81 mg PO QAM 10/06/18 05/01/20 History atorvastatin 40 mg PO QAM 10/06/18 05/01/20 History calcium carbonate-vitamin D3 1 tab PO QAM 10/06/18 05/01/20 History [Os-Tobias 500 + D3] clopidogrel 75 mg PO QAM 10/06/18 05/01/20 History levothyroxine 50 mcg PO QAM 10/06/18 05/01/20 History lisinopril 10 mg PO QAM 10/06/18 05/01/20 History multivitamin [Multiple Vitamins] 1 tab PO QAM 10/06/18 05/01/20 History omega 1-ele-aio-fish oil [Fish Oil] 1 cap PO QAM 10/06/18 05/01/20 History azithromycin [Zithromax] 250 mg PO QAM 05/01/20 05/01/20 History Allergies Allergy/AdvReac Type Severity Reaction Status Date / Time latex Allergy Unknown RASH Verified 05/01/20 10:43 No Known Drug Allergies Allergy Unknown . 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 History of sinus surgery Status post bilateral hip replacements Family History Other Family history unobtainable due to patient's condition Social History Smoking Status: Never smoker Second Hand Exposure: No; Do You Dip or Chew Tobacco: No; Tobacco Cessation Education Requested by Patient: No Hx Alcohol Use: No Hx Substance Use: No Preferred Language: Italian Communication Ability: Impaired Beef Farmer Required: No Beliefs That Will Affect Care: None marital status: Current Living Situation: Spouse current occupational status: retired Other Information That Helps Us Care for You: No Feels Safe at Home: Yes Safety Concerns: Feels Safe At This Time Review of Systems See HPI for pertinent positives & negatives. and A total of 10 systems reviewed and were otherwise negative Physical Exam Vital Signs Vital Signs - 24 hr 05/01/20 09:13 05/01/20 09:38 05/01/20 09:49 Temperature 36.3 C L Temperature Source Oral Pulse Rate 89 Pulse Rate [Apical] Respiratory Rate 20 Respiratory Effort / Characteristics Respiratory Depth Respiratory Pattern Blood Pressure 152/85 H Blood Pressure [Left Arm] Blood Pressure Mean 107 Blood Pressure Mean [Left Arm] Blood Pressure Position [Left Arm] Pulse Oximetry 93 91 98 Oxygen Delivery Method Room Air Room Air Nasal Cannula Nasal Cannula Oxygen Flow Rate 0 2 Sepsis Recent Fever Within 48 Hours No Sepsis New/Unexplained Change in Mental Status No Sepsis Action Taken by Nursing No Action Required Oxygen Flow Rate - Titration 2 Pulse Oximetry Post Tiitration 99 05/01/20 09:56 05/01/20 10:53 05/01/20 10:55 Temperature Temperature Source Pulse Rate Pulse Rate [Apical] 93 H Respiratory Rate 18 Respiratory Effort / Characteristics Respiratory Depth Respiratory Pattern Blood Pressure Blood Pressure [Left Arm] 154/87 H Blood Pressure Mean Blood Pressure Mean [Left Arm] 109 Blood Pressure Position [Left Arm] Pulse Oximetry 99 89 L 88 L Oxygen Delivery Method Nasal Cannula Room Air Room Air Oxygen Flow Rate 2 Sepsis Recent Fever Within 48 Hours Sepsis New/Unexplained Change in Mental Status Sepsis Action Taken by Nursing Oxygen Flow Rate - Titration Pulse Oximetry Post Tiitration 05/01/20 11:00 05/01/20 11:57 05/01/20 13:00 Temperature Temperature Source Pulse Rate Pulse Rate [Apical] 89 88 84 Respiratory Rate 20 20 20 Respiratory Effort / Characteristics Non-Labored Spontaneous Respiratory Depth Normal Respiratory Pattern Regular Blood Pressure Blood Pressure [Left Arm] 147/81 H 144/83 H 135/78 Blood Pressure Mean Blood Pressure Mean [Left Arm] 103 103 97 Blood Pressure Position [Left Arm] Lying Pulse Oximetry 98 96 93 Oxygen Delivery Method Nasal Cannula Nasal Cannula Nasal Cannula Oxygen Flow Rate 2 2 2 Sepsis Recent Fever Within 48 Hours Sepsis New/Unexplained Change in Mental Status Sepsis Action Taken by Nursing Oxygen Flow Rate - Titration Pulse Oximetry Post Tiitration Vital signs reviewed. General: Elderly and chronically ill-appearing 69-year-old female, in no significant distress. Thin and frail HEENT: No scleral icterus, PERRLA, neck supple. Atraumatic. Cardiovascular: Regular rate and rhythm, no extra sounds. Pulmonary: Clear to auscultation bilaterally, normal work of breathing. Abdomen: Soft, nontender, nondistended, positive bowel sounds. Musculoskeletal: Atraumatic, no peripheral edema. Neurologic: Patient awake alert and unable to answer questions appropriately. Intermittently follows simple commands Skin: Warm, dry, no rash Course Administered Medications Heparin Sodium (Porcine) (Heparin Sod 5,000 Unit/0.5 Ml Vial) 5,000 units SQ Q8 [facility] Stop: 05/31/20 17:59 Last Admin: 05/02/20 06:21 Dose: 5,000 units Documented by: [id number] Cosigned by: [id number] Admin: 05/01/20 20:54 Dose: 5,000 units Documented by: [id number] Cosigned by: [id number] Doxycycline Hyclate 100 mg/ (Dextrose) 110 mls @ 50 mls/hr IV Q12H [facility] Stop: 05/08/20 14:06 Last Infusion: 05/02/20 05:34 Dose: 0 mls/hr Documented by: [id number] Admin: 05/02/20 02:01 Dose: 50 mls/hr Documented by: [id number] Infusion: 05/01/20 18:54 Dose: 0 mls/hr Documented by: [id number] Admin: 05/01/20 15:41 Dose: 50 mls/hr Documented by: [id number] Methylprednisolone 40 mg/ (Syringe) 0.64 mls @ 1.5 mls/min IV TID [facility] Stop: 05/04/20 20:59 Last Admin: 05/01/20 20:54 Dose: 1.5 mls/min Documented by: [id number] Dextrose/Sodium Chloride (D5w And 1/2nss) 1,000 mls @ 60 mls/hr IV .[id number] [facility] Stop: 05/31/20 17:59 Last Admin: 05/01/20 18:44 Dose: 60 mls/hr Documented by: [id number] Piperacillin Sod/Tazobactam (Sod 3.375 gm/ Dextrose) 115 mls @ 28.75 mls/hr IV Q8H [facility]; Protocol Stop: 05/09/20 00:00 Last Infusion: 05/02/20 05:33 Dose: 0 mls/hr Documented by: [id number] Admin: 05/02/20 00:06 Dose: 28.8 mls/hr Documented by: [id number] Discontinued Medications Sodium Chloride (Nss) 500 mls @ 999 mls/hr IV .Q31M [facility] Stop: 05/01/20 09:30 Last Infusion: 05/01/20 10:20 Dose: 0 mls/hr Documented by: [id number] Admin: 05/01/20 09:48 Dose: 999 mls/hr Documented by: [id number] Sodium Chloride (Nss 1000ml) 1,000 mls @ 125 mls/hr IV .Q8H [facility] Stop: 05/01/20 16:59 Last Infusion: 05/01/20 19:34 Dose: 0 mls/hr Documented by: [id number] Admin: 05/01/20 12:43 Dose: 125 mls/hr Documented by: [id number] Sodium Chloride (Nss 1000ml) 1,000 mls @ 75 mls/hr IV .[id number] [facility] Stop: 05/02/20 20:10 Last Admin: 05/01/20 18:54 Dose: Not Given Documented by: [id number] Piperacillin Sod/Tazobactam (Sod 4.5 gm/ Dextrose) 120 mls @ 200 mls/hr IV ONE ONE; Protocol Stop: 05/01/20 18:20 Last Infusion: 05/01/20 19:30 Dose: 0 mls/hr Documented by: [id number] Admin: 05/01/20 18:44 Dose: 200 mls/hr Documented by: [id number] Ioversol (Ioversol 100ml) 94 ml IV ONCE ONE Stop: 05/01/20 11:05 Last Admin: 05/01/20 11:04 Dose: 94 ml Documented by: [id number] Medical Decision Making Differential Diagnosis Differential includes acute coronary syndrome, myocardial infarction, CVA, TIA, anemia, infection, pneumonia, UTI, pyelonephritis, poor nutrition, dehydration, electrolyte disturbance,hypoglycemia. Medical Records Attestation: I reviewed the patient's medical records. Home Medications Current Medication List: was personally reviewed by me Laboratory Data Attestation: I reviewed the patient's lab results. Result diagrams: 05/02/20 07:31 05/02/20 07:31 Lab Results 05/01/20 05/01/20 05/01/20 Range/Units 09:10 09:50 09:50 WBC 11.47 H (4.8-10.8) K/uL RBC 4.21 (4.2-5.4) M/uL Hgb 12.7 (12.0-16.0) g/dL Hct 38.4 (37-47) % MCV 91.2 (80-100) fL MCH 30.2 (25-34) pg MCHC 33.1 (32-36) g/dL RDW Std Deviation 48.5 H (36.4-46.3) fL RDW Coeff of Ruddy 14.5 (11.5-14.5) % Plt Count 233 (130-400) K/uL MPV 9.4 (7.4-10.4) fL Immature Gran % (Auto) 0.2 % Neut % (Auto) 81.5 % Lymph % (Auto) 10.5 % [place] % (Auto) 7.7 % Eos % (Auto) 0.0 % Baso % (Auto) 0.1 % Neut # (Auto) 9.36 H (1.4-6.5) K/uL Lymph # (Auto) 1.20 (1.2-3.4) K/uL [place] # (Auto) 0.88 H (0.11-0.59) K/uL Eos # (Auto) 0.00 (0-0.5) K/uL Baso # (Auto) 0.01 (0-0.2) K/uL Immature Gran # (Auto) 0.02 (0.00-0.02) K/uL Sodium 140 (136-145) mmol/L Potassium 4.4 (3.5-5.1) mmol/L Chloride 105 (98-107) mmol/L Carbon Dioxide 26 (21-32) mmol/L Anion Gap 9.0 (3-11) BUN 37 H (7-18) mg/dl Creatinine 1.57 H D (0.6-1.2) mg/dl Est Cr Clr Drug Dosing 28.5 ml/min Est GFR ( Amer) 38.0 Est GFR (Non-Af Amer) 32.8 BUN/Creatinine Ratio 23.7 H (10-20) Glucose 100 H (70-99) mg/dl Lactate (0.4-2.0) mmol/L Calcium 9.3 (8.5-10.1) mg/dl Magnesium 2.2 (1.8-2.4) mg/dl Total Bilirubin 0.8 (0.2-1) mg/dl AST 57 H (15-37) U/L ALT 56 (12-78) U/L Alkaline Phosphatase 72 (45-117) U/L Total Creatine Kinase 348 H (26-192) U/L Troponin I < 0.015 (0-0.045) ng/ml Total Protein 7.7 (6.4-8.2) gm/dl Albumin 3.5 (3.4-5.0) gm/dl Globulin 4.2 H (2.5-4.0) gm/dl Albumin/Globulin Ratio 0.8 L (0.9-2) Procalcitonin (0-0.5) ng/ml TSH 0.593 (0.300-4.500) uIu/ml Free T4 (0.8-1.6) ng/dl Specimen Hemolysis Urine Color Yellow Urine Appearance Clear (Clear) Urine pH 5.5 (4.5-7.5) Ur Specific Luther 1.018 (1.000-1.030) Urine Protein Negative (Negative) Urine Glucose (UA) Negative (Negative) Urine Ketones Negative (Negative) Urine Blood Negative (Negative) Urine Nitrite Negative (Negative) Urine Bilirubin Negative (Negative) Urine Urobilinogen Negative (Negative) Ur Leukocyte Esterase Negative (Negative) Anaplasma Smear A. phagocytophilum DNA Lyme Disease IgG Ab (Negative) Lyme Disease IgM Ab (Negative) COVID-19 Eval Order COVID-19 PCR (Negative) 05/01/20 05/01/20 05/01/20 Range/Units 09:50 09:50 10:57 WBC (4.8-10.8) K/uL RBC (4.2-5.4) M/uL Hgb (12.0-16.0) g/dL Hct (37-47) % MCV (80-100) fL MCH (25-34) pg MCHC (32-36) g/dL RDW Std Deviation (36.4-46.3) fL RDW Coeff of Ruddy (11.5-14.5) % Plt Count (130-400) K/uL MPV (7.4-10.4) fL Immature Gran % (Auto) % Neut % (Auto) % Lymph % (Auto) % [place] % (Auto) % Eos % (Auto) % Baso % (Auto) % Neut # (Auto) (1.4-6.5) K/uL Lymph # (Auto) (1.2-3.4) K/uL [place] # (Auto) (0.11-0.59) K/uL Eos # (Auto) (0-0.5) K/uL Baso # (Auto) (0-0.2) K/uL Immature Gran # (Auto) (0.00-0.02) K/uL Sodium (136-145) mmol/L Potassium (3.5-5.1) mmol/L Chloride (98-107) mmol/L Carbon Dioxide (21-32) mmol/L Anion Gap (3-11) BUN (7-18) mg/dl Creatinine (0.6-1.2) mg/dl Est Cr Clr Drug Dosing ml/min Est GFR ( Amer) Est GFR (Non-Af Amer) BUN/Creatinine Ratio (10-20) Glucose (70-99) mg/dl Lactate 0.7 (0.4-2.0) mmol/L Calcium (8.5-10.1) mg/dl Magnesium (1.8-2.4) mg/dl Total Bilirubin (0.2-1) mg/dl AST (15-37) U/L ALT (12-78) U/L Alkaline Phosphatase (45-117) U/L Total Creatine Kinase (26-192) U/L Troponin I (0-0.045) ng/ml Total Protein (6.4-8.2) gm/dl Albumin (3.4-5.0) gm/dl Globulin (2.5-4.0) gm/dl Albumin/Globulin Ratio (0.9-2) Procalcitonin (0-0.5) ng/ml TSH (0.300-4.500) uIu/ml Free T4 (0.8-1.6) ng/dl Specimen Hemolysis Urine Color Urine Appearance (Clear) Urine pH (4.5-7.5) Ur Specific Luther (1.000-1.030) Urine Protein (Negative) Urine Glucose (UA) (Negative) Urine Ketones (Negative) Urine Blood (Negative) Urine Nitrite (Negative) Urine Bilirubin (Negative) Urine Urobilinogen (Negative) Ur Leukocyte Esterase (Negative) Anaplasma Smear See Comment A. phagocytophilum DNA Cancelled Lyme Disease IgG Ab (Negative) Lyme Disease IgM Ab (Negative) COVID-19 Eval Order COVID-19 PCR (Negative) 05/01/20 05/01/20 05/01/20 Range/Units 11:08 11:08 13:30 WBC (4.8-10.8) K/uL RBC (4.2-5.4) M/uL Hgb (12.0-16.0) g/dL Hct (37-47) % MCV (80-100) fL MCH (25-34) pg MCHC (32-36) g/dL RDW Std Deviation (36.4-46.3) fL RDW Coeff of Ruddy (11.5-14.5) % Plt Count (130-400) K/uL MPV (7.4-10.4) fL Immature Gran % (Auto) % Neut % (Auto) % Lymph % (Auto) % [place] % (Auto) % Eos % (Auto) % Baso % (Auto) % Neut # (Auto) (1.4-6.5) K/uL Lymph # (Auto) (1.2-3.4) K/uL [place] # (Auto) (0.11-0.59) K/uL Eos # (Auto) (0-0.5) K/uL Baso # (Auto) (0-0.2) K/uL Immature Gran # (Auto) (0.00-0.02) K/uL Sodium (136-145) mmol/L Potassium (3.5-5.1) mmol/L Chloride (98-107) mmol/L Carbon Dioxide (21-32) mmol/L Anion Gap (3-11) BUN (7-18) mg/dl Creatinine (0.6-1.2) mg/dl Est Cr Clr Drug Dosing ml/min Est GFR ( Amer) Est GFR (Non-Af Amer) BUN/Creatinine Ratio (10-20) Glucose (70-99) mg/dl Lactate (0.4-2.0) mmol/L Calcium (8.5-10.1) mg/dl Magnesium (1.8-2.4) mg/dl Total Bilirubin (0.2-1) mg/dl AST (15-37) U/L ALT (12-78) U/L Alkaline Phosphatase (45-117) U/L Total Creatine Kinase (26-192) U/L Troponin I (0-0.045) ng/ml Total Protein (6.4-8.2) gm/dl Albumin (3.4-5.0) gm/dl Globulin (2.5-4.0) gm/dl Albumin/Globulin Ratio (0.9-2) Procalcitonin 0.12 (0-0.5) ng/ml TSH (0.300-4.500) uIu/ml Free T4 1.19 (0.8-1.6) ng/dl Specimen Hemolysis Urine Color Urine Appearance (Clear) Urine pH (4.5-7.5) Ur Specific Luther (1.000-1.030) Urine Protein (Negative) Urine Glucose (UA) (Negative) Urine Ketones (Negative) Urine Blood (Negative) Urine Nitrite (Negative) Urine Bilirubin (Negative) Urine Urobilinogen (Negative) Ur Leukocyte Esterase (Negative) Anaplasma Smear A. phagocytophilum DNA Lyme Disease IgG Ab Negative (Negative) Lyme Disease IgM Ab Negative (Negative) COVID-19 Eval Order Covid19 Done at [facility] COVID-19 PCR (Negative) 05/01/20 Range/Units 13:30 WBC (4.8-10.8) K/uL RBC (4.2-5.4) M/uL Hgb (12.0-16.0) g/dL Hct (37-47) % MCV (80-100) fL MCH (25-34) pg MCHC (32-36) g/dL RDW Std Deviation (36.4-46.3) fL RDW Coeff of Ruddy (11.5-14.5) % Plt Count (130-400) K/uL MPV (7.4-10.4) fL Immature Gran % (Auto) % Neut % (Auto) % Lymph % (Auto) % [place] % (Auto) % Eos % (Auto) % Baso % (Auto) % Neut # (Auto) (1.4-6.5) K/uL Lymph # (Auto) (1.2-3.4) K/uL [place] # (Auto) (0.11-0.59) K/uL Eos # (Auto) (0-0.5) K/uL Baso # (Auto) (0-0.2) K/uL Immature Gran # (Auto) (0.00-0.02) K/uL Sodium (136-145) mmol/L Potassium (3.5-5.1) mmol/L Chloride (98-107) mmol/L Carbon Dioxide (21-32) mmol/L Anion Gap (3-11) BUN (7-18) mg/dl Creatinine (0.6-1.2) mg/dl Est Cr Clr Drug Dosing ml/min Est GFR ( Amer) Est GFR (Non-Af Amer) BUN/Creatinine Ratio (10-20) Glucose (70-99) mg/dl Lactate (0.4-2.0) mmol/L Calcium (8.5-10.1) mg/dl Magnesium (1.8-2.4) mg/dl Total Bilirubin (0.2-1) mg/dl AST (15-37) U/L ALT (12-78) U/L Alkaline Phosphatase (45-117) U/L Total Creatine Kinase (26-192) U/L Troponin I (0-0.045) ng/ml Total Protein (6.4-8.2) gm/dl Albumin (3.4-5.0) gm/dl Globulin (2.5-4.0) gm/dl Albumin/Globulin Ratio (0.9-2) Procalcitonin (0-0.5) ng/ml TSH (0.300-4.500) uIu/ml Free T4 (0.8-1.6) ng/dl Specimen Hemolysis Urine Color Urine Appearance (Clear) Urine pH (4.5-7.5) Ur Specific Luther (1.000-1.030) Urine Protein (Negative) Urine Glucose (UA) (Negative) Urine Ketones (Negative) Urine Blood (Negative) Urine Nitrite (Negative) Urine Bilirubin (Negative) Urine Urobilinogen (Negative) Ur Leukocyte Esterase (Negative) Anaplasma Smear A. phagocytophilum DNA Lyme Disease IgG Ab (Negative) Lyme Disease IgM Ab (Negative) COVID-19 Eval Order COVID-19 PCR NEGATIVE (Negative) Imaging Data Radiologist's Impression: XR chest 1V portable HISTORY: weakness COMPARISON: Chest 04/30/2020. FINDINGS: The cardiac silhouette is normal in size. Mitral annulus calcifications are again noted. No pleural effusions. No pneumothorax. No new focal lung consolidations to suggest pneumonia. No evidence for pulmonary edema. A few bibasilar linear densities favor subsegmental atelectasis or scarring. IMPRESSION: No acute process. ACT 112: Negative or not required by law. Electronically signed by: Adolfo Coates M.D. 05/01/2020 10:15 AM Dictated: 05/01/20 1014 Transcribed: 05/01/[address] OF THE ABDOMEN AND PELVIS WITH CONTRAST CLINICAL HISTORY: ecchymosis right flank and buttocks COMPARISON STUDY: None. TECHNIQUE: Following IV administration of 94 mL of [id number]-320, axial images of the abdomen and pelvis were obtained from the lung bases to the proximal femurs. Images were reviewed in the axial, sagittal, and coronal planes. IV contrast was administered without complication. Automated exposure control was utilized for the study. A dose lowering technique was utilized adhering to the principles of ALARA. CT DOSE: 920.65 mGy.cm FINDINGS: Imaged portions of the lower chest demonstrate mild bronchial wall thickening with mild airspace opacity within the right lower lobe. No pneumatosis, free air or portal venous gas is present. There are gallstones within the gallbladder. There is no pericholecystic infiltration. The liver, spleen, adrenal glands, kidneys and pancreas are unremarkable. There is no biliary or pancreatic ductal dilatation. There is no hydronephrosis. Colonic diverticulosis is noted without evidence for acute diverticulitis. Images of the pelvis are degraded by streak artifact from hip arthroplasties. Note is made of a 7.2 x 4.8 cm cystic left adnexal lesion which is at least contains a septation. Garcia balloon is present within the bladder. There is lucency within the anterior right acetabulum adjacent to the acetabular cup. There is also lucency adjacent to the femoral component of the right hip arthroplasty. No acute fractures are identified within visualized skeletal structures. There is no lymphadenopathy or ascites. Sacroiliac joints and symphysis pubis are intact. IMPRESSION: 1. No acute traumatic findings within the abdomen or pelvis. 2. Cholelithiasis. 3. 7.2 x 4.8 cm cystic left adnexal lesion which contains at least one septation. This is considered pathologic in a postmenopausal patient and a follow-up nonemergent pelvic ultrasound to evaluate for complexity is recommended. 4. Lucency within the anterior wall of the right acetabulum adjacent to the acetabular cup of the right hip arthroplasty. This could reflect osteolysis. Kishore ency adjacent to the femoral component of the right hip arthroplasty raises the possibility of loosening. 5. Bronchial wall thickening and mild airspace opacities within the right lower lobe. ACT 112: Negative or not required by law. Electronically signed by: Ric Mancera M.D. 05/01/2020 11:29 AM Dictated: 05/01/20 1115 Transcribed: 05/01/[address] DOSE: HISTORY: Altered mental status. Weakness. TECHNIQUE: Multiaxial CT images of the head were performed without the use of intravenous contrast. Automated exposure control was utilized for this study. A dose lowering technique was utilized adhering to the principles of ALARA. Comparison: Head CT 04/30/2020. Head CT 02/10/2017. Findings: Moderate mucosal thickening and a small fluid level within the right m axillary sinus, unchanged. The mastoid air cells are clear. The calvarium and skull base are intact. There is no hematoma, midline shift, acute infarct. White matter hypodensity is nonspecific but suggestive of microvascular ischemic change. The ventricles and sulci demonstrate mild age-related involutional changes. Heterogeneous appearance to the calvarium, unchanged. This may represent osteopenia. 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 Stable 1 cm left frontal parafalcine slightly dense extra-axial lesion. This favors a meningioma given the long-term stability. This is best seen on image 18. Impression: No significant change compared to the prior study. No acute intracranial abnormality. Chronic findings as described above. ACT 112: Negative or not required by law. Electronically signed by: Adolfo Coates M.D. 05/01/2020 11:19 AM Dictated: 05/01/20 1115 Transcribed: 05/01/[address] OF THE CHEST WITHOUT IV CONTRAST CLINICAL HISTORY: cough, hypoxia, aspiration? AMS COMPARISON STUDY: Chest CT September 08, 2011. Chest radiograph performed earlier today. CT DOSE: 273.64 mGy.cm TECHNIQUE: Axial images of the chest were obtained without IV contrast. Images were reviewed in the axial, sagittal, and coronal planes. IV contrast was not administered for this examination. Automated exposure control was utilized for the study. A dose lowering technique was utilized adhering to the principles of ALARA. FINDINGS: This study is mildly compromised by motion artifact. Mild cardiomegaly is noted. Extensive mitral annular calcification is noted. There is moderate coronary artery calcific lesion. No pericardial effusion is noted. There is no pneumothorax or pleural effusion. Calcified mediastinal and bilateral hilar lymph nodes are noted. These were shown on prior CT. Central airways are patent. Mild bronchial wall thickening is most evident within the right lower lobe. There are scattered mild tree-in-bud nodules within the lungs. These are decreased when compared to earlier CT of September 08, 2011. No lobar consolidation is noted. There is no cavitation. Contrast within the collecting systems is from recent contrast-enhanced CT. IMPRESSION: 1. Scattered mild tree-in-bud nodules within the lungs which suggest a mild bronchiolitis. 2. Exam mildly compromised by motion artifact. 3. Mild cardiomegaly. 4. Evidence for a previous granulomas process. ACT 112: Negative or not required by law. Electronically signed by: Ric Mancera M.D. 05/01/2020 12:54 PM Dictated: 05/01/20 1245 Transcribed: 05/01/20 1245 ECG Data Attestation: I personally reviewed and interpreted this ECG as follows: Indication: + other (AMS) Rate (beats per minute): 92 Rhythm: + normal sinus ECG Intervals/blocks: + Normal QT-c (462) ECG Jansen: + Normal ECG ST segments: + Nonspecific ST abnormalities ECG Findings: no PACs and no PVCs Blood Pressure Blood Pressure Findings: Normal blood pressure Blood Pressure Disposition: did not require urgent referral MDM Narrative This patient was evaluated and appeared to be in no significant distress. IV access was obtained and laboratory work was drawn. An order for cardiac monitoring was placed and the patient is noted to be in a normal sinus rhythm at 92 bpm. IV fluids were initiated. Nursing staff cleaned the patient from her incontinence of stool and urine. Catheterized urine specimen was obtained. Patient's laboratory work is fairly reassuring. WBC is only mildly elevated at 11.47. Hemoglobin is normal at 12.7. Patient is afebrile and blood pressure is stable. She did periodically become hypoxic to 88% on room air. She was placed on nasal cannula oxygen and had no further difficulty. CT scan of the head was performed without acute abnormality chest x-ray reveals no focal lung conso lidation or failure. CT imaging of the abdomen pelvis was performed as there are several ecchymotic areas noted on exam. I suspect this is related to her son attempting to transfer her, but trauma needed to be ruled out. Incidentally an adnexal cystic lesion was identified. Several attempts at contacting family members were made. After several hours, finally the , Mario Alberto, was contacted. He was able to give additional insight stating that the patient is usually a "normal person" with memory issues, but is able to care for herself. He is concerned because she needed to be carried into the house last night by her son. She was placed in the reclining chair and stayed there all night. She did not use the restroom or go to the bedroom. At this time the etiology of the patient's change in mental status is unclear. Obviously there are some social issues at play as well. The hospitalist service has been consulted for admission and further management. is aware of the plan and agrees. Impression & Plan Acute on chronic alteration in mental status, Adnexal mass, Fecal incontinence Discharge Plan Visit Data Chief Complaint: Lethargic ED Provider: Maryan Oakley Discharge Problem: Acute on chronic alteration in mental status, Adnexal mass, Fecal incontinence Patient Disposition: Admitted As Inpatient Discharge Instructions Interventions: ED Discharge Assessment Last Done: 05/01/20 16:44 Discharge Problem: Fecal incontinence Qualifiers: Fecal incontinence type: unspecified Qualified Code(s): R15.9 - Full incontinence of feces
[2020-05-01 17:16] LABS: Adenovirus PCR Not Detected (NotDetected); Bordetella parapertussis PCR Not Detected (NotDetected); Bordetella pertussis PCR Not Detected (NotDetected); Chlamydia pneumoniae PCR Not Detected (NotDetected); Coronavirus 229E PCR Not Detected (NotDetected); Coronavirus CoV-2 (COVID19)PCR Not Detected (NotDetected); Coronavirus HKU1 PCR Not Detected (NotDetected); Coronavirus NL63 PCR Not Detected (NotDetected); Coronavirus OC43PCR Not Detected (NotDetected); Human Metapneumovirus PCR Not Detected (NotDetected); Influenza A PCR Not Detected (NotDetected); Influenza B PCR Not Detected (NotDetected); Mycoplasma pneumoniae PCR Not Detected (NotDetected); Parainfluenza Virus 1 PCR Not Detected (NotDetected); Parainfluenza Virus 2 PCR Not Detected (NotDetected); Parainfluenza Virus 3 PCR Not Detected (NotDetected); Parainfluenza Virus 4 PCR Not Detected (NotDetected); Respiratory Syncytial VirusPCR Not Detected (NotDetected)
[2020-05-01] MEDS ORDERED: ALBUTEROL 0.083% NEBU SOLN 3 ML VIAL NEB PRN (17:31)
[2020-05-01] MEDS ORDERED: MAGNESIUM HYDROXIDE SUSP 30 ML UDC PO PRN (17:31)
[2020-05-01] MEDS ORDERED: ACETAMINOPHEN 325 MG TAB PO PRN (17:31)
[2020-05-01] MEDS ORDERED: ALUMINUM/MAGNESIUM SUSP 30 ML UDC PO PRN (17:31)
[2020-05-01] MEDS ORDERED: ONDANSETRON INJ 2 MG/ML 2 ML VIAL IV PRN (17:31)
[2020-05-01] MEDS ORDERED: POLYETHYLENE (MIRALAX) 17 GM PACK PO PRN (17:31)
[2020-05-01 17:33] LABS: Rhinovirus/Enterovirus PCR DETECTED (NotDetected)
[2020-05-01] MEDS ORDERED: PIPERACILLIN/TAZOBACTAM 4.5 GM in DEXTROSE 5% 100 ML IV ONE (17:45)
[2020-05-01] MEDS ORDERED: ACETAMINOPHEN 1,000 MG/100 ML VIAL IV PRN (17:53)
[2020-05-01] MEDS: D5W AND 1/2NSS 1,000 ML IV SCH (18:44)
[2020-05-01] MEDS: HEPARIN SOD 5,000 UNIT/0.5 ML VIAL SQ SCH (20:54)
[2020-05-01] MEDS: methylPREDNISolone 40 MG in SYRINGE 0 ML IV SCH (20:54)
[2020-05-02] MEDS: PIPERACILLIN/TAZOBACTAM 3.375 GM in DEXTROSE 5% 100 ML IV SCH ×3 (00:06→16:13)
[2020-05-02] MEDS: DOXYCYCLINE HYCLATE 100 MG in DEXTROSE 5% 100 ML IV SCH ×2 (02:01→14:32)
[2020-05-02] MEDS: HEPARIN SOD 5,000 UNIT/0.5 ML VIAL SQ SCH ×3 (06:21→20:43)
--- NOTE | 2020-05-02 06:43 | Electrocardiogram Report ---
Test Reason : Blood Pressure : / mmHG Vent. Rate : 092 BPM Atrial Rate : 092 BPM P-R Int : 132 ms QRS Dur : 080 ms QT Int : 374 ms P-R-T Axes : -05 022 019 degrees QTc Int : 462 ms Poor data quality, interpretation may be adversely affected Normal sinus rhythm Normal ECG When compared with ECG of 30-APR-2020 07:09, No significant change was found Confirmed by Calderon Shi ([id number] on 05/02/2020 6:43:02 AM Referred By: Confirmed By:Calderon Shi
[2020-05-02 08:14] LABS: Hematocrit (blood only) 36.2 % (37-47); Hemoglobin 11.9 g/dL (12.0-16.0); Immature Granulocytes # (auto) 0.02 K/uL (0.00-0.02); Immature Granulocytes % (auto) 0.2 %; Lymphocytes % (auto) 11.1 %; Mean Corpuscular Hemoglobin 30.1 pg (25-34); Mean Corpuscular Hgb Conc 32.9 g/dL (32-36); Mean Corpuscular Volume 91.4 fL (80-100); Mean Platelet Volume 9.5 fL (7.4-10.4); Monocytes # (auto) 0.28 K/uL (0.11-0.59); Monocytes % (auto) 2.6 %; Neutrophils # (auto) 9.35 K/uL (1.4-6.5); Neutrophils % (auto) 86.1 %; Platelet Count 221 K/uL (130-400); RDW Coefficient of Variation 14.3 % (11.5-14.5); RDW Standard Deviation 48.1 fL (36.4-46.3); Red Blood Count 3.96 M/uL (4.2-5.4); White Blood Count 10.85 K/uL (4.8-10.8)
[2020-05-02 08:47] LABS: BUN Creatinine Ratio 23.2 (10-20); Calcium 8.8 mg/dl (8.5-10.1); Creatinine Clr Calc Pharmacy 38.4 ml/min; Est GFR (African American) 52.7; Est GFR (Non-African American) 45.4; Magnesium 2.2 mg/dl (1.8-2.4); Potassium 3.9 mmol/L (3.5-5.1)
[2020-05-02 08:50] LABS: Albumin Globulin Ratio 0.8 (0.9-2); Bilirubin,Total 0.7 mg/dl (0.2-1); Globulin 3.7 gm/dl (2.5-4.0); Total Protein 6.7 gm/dl (6.4-8.2)
[2020-05-02] MEDS: methylPREDNISolone 40 MG in SYRINGE 0 ML IV SCH ×2 (09:55→14:28)
[2020-05-02] MEDS: D5W AND 1/2NSS 1,000 ML IV SCH (11:30)
--- NOTE | 2020-05-02 19:23 | Hospitalist Progress Note ---
Date of Service May 02, 2020 Assessment & Plan (1) Acute respiratory failure with hypoxia: Presented with cough and SOB. O2 sats as low as 88% on RA. CT demonstrated bronchiolitis. Continue O2; wean as tolerated. (2) Acute bronchiolitis: Presented with cough and SOB. CT demonstrated bronchiolitis. SARS-CoV-2 PCR negative x 2. BioFire resp panel positive for enterovirus/rhinovirus. Other pathogens negative. Continue O2, wean as tolerated. Continue steroids, wean as tolerated. Concomitant bacterial infection unlikely- DC antibiotics. (3) Acute kidney injury: Serum creatinine 1.23 --> 1.57. Acute kidney injury, probably secondary to dehydration. Received IV fluids. Creatinine today = 1.20. Follow. (4) Encephalopathy: Baseline mild dementia. Presented with worsening confusion and lethargy. CT showed old cerebrovascular events and previously noted meningioma, no acute findings. Probable encephalopathy / delirium, multifactorial (infection, dehydration, hypoxia). Improved. (5) Abnormal liver function tests: AST 30 --> 130. ALT 28 --> 123. Bilirubin and alk phos normal. CT showed cholelithiasis without apparent obstruction. Elevated transaminases could be secondary to viral infection or due to skeletal muscle injury from fall. Follow. (6) Hypertension: Lisinopril held due to TRISH. Hemodynamically stable. Follow. (7) Cerebrovascular disease: History of TIA's and strokes. No acute findings on CT. Continue antiplatelet meds and statin. (8) CKD (chronic kidney disease) stage 3, GFR 30-59 ml/min: Acute kidney injury as noted above. Follow. (9) Hypothyroidism: TSH 0.593. Continue levothyroxine. (10) Dementia: Baseline mild dementia. May have vascular dementia and/or other etiology. Superimposed delirium- improved. (11) Adnexal mass: CT demonstrated "7.2 x 4.8 cm cystic left adnexal lesion which contains at least one septation." Will need outpatient referral to Gynecology. informed. (12) Lucency of femoral head on x-ray: CT demonstrated: "Lucency within the anterior wall of the right acetabulum adjacent to the acetabular cup of the right hip arthroplasty. This could reflect osteolysis. Lucency adjacent to the femoral component of the right hip arthroplasty raises the possibility of loosening." Outpatient follow-up with Ortho. (13) DVT prophylaxis: SQ heparin. Ambulate. (14) Discharge planning issues: Discharge disposition to be determined- probable DC to home. PT / OT evals requested. Family Medicine follow-up with Dr. Max Pendleton. given update this evening by phone. Admission and Anticipated Discharge Date Admission Date: May 01, 2020 Subjective Recheck for multiple problems. Patient seen in their room around 1730. Feels better. Less SOB, but still requiring O2. Cough generally nonproductive. Less confused. Review of Systems: Constitutional- no fever. Cardiac- no chest pain. Pulmonary- as noted above. GI- no nausea, vomiting, diarrhea, melena, hematochezia. - Garcia cath. Otherwise, as noted above. Physical Exam Constitutional: no acute distress Eyes: + anicteric sclerae Respiratory: no respiratory distress Auscultation: + wheezes Cardiovascular: Rate/Rhythm: regular rate and regular rhythm Vessels: no JVD Extremities: no calf tenderness and no edema Gastrointestinal (Abdomen): normal bowel sounds, soft, nontender, no hepatosplenomegaly Musculoskeletal: Extremities: no cyanosis Skin: no rashes, warm and dry Psychiatric: Orientation: alert; + not oriented x 3 (oriented to person, place, day of week, not date or year) cannot name president Genitourinary: Garcia cath Results & Data Results & Data ([facility]) Vital Signs (Past 12 Hours) Vital Signs Temp Pulse Pulse Resp BP Pulse Ox 05/02/20 16:00 71 05/02/20 15:43 36.5 C 65 20 119/74 96 05/02/20 11:27 36.4 C L 63 18 136/90 96 05/02/20 08:00 36.6 C 66 69 20 132/72 95 Laboratory Results Laboratory Results - last 24 hr 05/02/20 05/02/20 07:31 07:31 WBC 10.85 H RBC 3.96 L Hgb 11.9 L Hct 36.2 L MCV 91.4 MCH 30.1 MCHC 32.9 RDW Std Deviation 48.1 H RDW Coeff of Ruddy 14.3 Plt Count 221 MPV 9.5 Immature Gran % (Auto) 0.2 Neut % (Auto) 86.1 Lymph % (Auto) 11.1 [place] % (Auto) 2.6 Eos % (Auto) 0.0 Baso % (Auto) 0.0 Neut # (Auto) 9.35 H Lymph # (Auto) 1.20 [place] # (Auto) 0.28 Eos # (Auto) 0.00 Baso # (Auto) 0.00 Immature Gran # (Auto) 0.02 Sodium 139 Potassium 3.9 Chloride 106 Carbon Dioxide 25 Anion Gap 8.0 BUN 28 H Creatinine 1.20 D Est Cr Clr Drug Dosing 38.4 Est GFR ( Amer) 52.7 Est GFR (Non-Af Amer) 45.4 BUN/Creatinine Ratio 23.2 H Glucose 158 H Calcium 8.8 Magnesium 2.2 Total Bilirubin 0.7 AST 130 H ALT 123 H Alkaline Phosphatase 90 Total Protein 6.7 Albumin 3.0 L Globulin 3.7 Albumin/Globulin Ratio 0.8 L Microbiology 05/01/20 09:50 Blood Aerobic Blood Culture - Preliminary No growth in Aerobic bottle after 24 hours. 05/01/20 09:50 Blood Anaerobic Blood Culture - Final 05/02/20 10:00 Sputum, Expectorated Gram Stain - Final 05/01/20 10:57 Blood Aerobic Blood Culture - Preliminary No growth in Aerobic bottle after 24 hours. 05/01/20 10:57 Blood Anaerobic Blood Culture - Preliminary No growth in Anaerobic bottle after 24 hours.
[2020-05-02] MEDS: methylPREDNISolone 20 MG in SYRINGE 0 ML IV SCH (21:34)
[2020-05-03] MEDS: D5W AND 1/2NSS 1,000 ML IV SCH ×2 (03:50→19:50)
[2020-05-03] MEDS: methylPREDNISolone 20 MG in SYRINGE 0 ML IV SCH ×3 (06:23→23:04)
[2020-05-03] MEDS: LEVOTHYROXINE SODIUM 50 MCG TABLET PO SCH (06:25)
[2020-05-03] MEDS: HEPARIN SOD 5,000 UNIT/0.5 ML VIAL SQ SCH ×3 (06:25→23:06)
[2020-05-03] MEDS: ATORVASTATIN 40 MG TAB PO SCH (07:54)
[2020-05-03] MEDS: CLOPIDOGREL BISULFATE 75 MG TAB PO SCH (07:54)
[2020-05-03] MEDS: ASPIRIN 81 MG ECTAB PO SCH (07:55)
[2020-05-03 08:50] LABS: Albumin Level 2.9 gm/dl (3.4-5.0); Bilirubin Direct 0.2 mg/dl (0-0.2); Calcium 8.9 mg/dl (8.5-10.1); Creatinine Clr Calc Pharmacy 34.7 ml/min; Est GFR (African American) 47.8; Est GFR (Non-African American) 41.2
[2020-05-03 08:52] LABS: Albumin Globulin Ratio 0.7 (0.9-2); Bilirubin,Total 0.6 mg/dl (0.2-1); Globulin 3.9 gm/dl (2.5-4.0); Total Protein 6.8 gm/dl (6.4-8.2)
--- NOTE | 2020-05-03 22:36 | Hospitalist Progress Note ---
Date of Service May 03, 2020 Assessment & Plan (1) Acute respiratory failure with hypoxia: Presented with cough and SOB. O2 sats as low as 88% on RA. CT demonstrated bronchiolitis. Received supplemental O2; wean as tolerated. (2) Acute bronchiolitis: Presented with cough and SOB. CT demonstrated bronchiolitis. SARS-CoV-2 PCR negative x 2. BioFire resp panel positive for enterovirus/rhinovirus. Other pathogens negative. Continue O2, wean as tolerated. Continue steroids, wean as tolerated. Concomitant bacterial infection unlikely- stopped antibiotics. (3) Acute kidney injury: Serum creatinine 1.23 --> 1.57. Acute kidney injury, probably secondary to dehydration. Received IV fluids. Creatinine today = 1.30. Follow. (4) Encephalopathy: Baseline mild dementia. Presented with worsening confusion and lethargy. CT showed old cerebrovascular events and previously noted meningioma, no acute findings. Probable encephalopathy / delirium, multifactorial (infection, dehydration, hypoxia). Improved. (5) Abnormal liver function tests: AST 30 --> 170. ALT 28 --> 216. Bilirubin and alk phos normal. No GI symptoms. CT showed cholelithiasis without apparent obstruction. Elevated transaminases could be secondary to viral infection or due to skeletal muscle injury from fall. Follow. (6) Hypertension: Lisinopril held due to TRISH. Hemodynamically stable. Follow. (7) Cerebrovascular disease: History of TIA's and strokes. No acute findings on CT. Continue antiplatelet meds and statin. (8) CKD (chronic kidney disease) stage 3, GFR 30-59 ml/min: Acute kidney injury as noted above. Follow. (9) Hypothyroidism: TSH 0.593. Continue levothyroxine. (10) Dementia: Baseline mild dementia. May have vascular dementia and/or other etiology. Superimposed delirium- improved. (11) Adnexal mass: CT demonstrated "7.2 x 4.8 cm cystic left adnexal lesion which contains at least one septation." Will need outpatient referral to Gynecology. informed. (12) Lucency of femoral head on x-ray: CT demonstrated: "Lucency within the anterior wall of the right acetabulum adjacent to the acetabular cup of the right hip arthroplasty. This could reflect osteolysis. Lucency adjacent to the femoral component of the right hip arthroplasty raises the possibility of loosening." Outpatient follow-up with Ortho. (13) DVT prophylaxis: SQ heparin. Ambulate. (14) Discharge planning issues: Discharge disposition to be determined- probable DC to home. Family Medicine follow-up with Dr. Max Pendleton. Admission and Anticipated Discharge Date Admission Date: May 01, 2020 Subjective Recheck for multiple problems. Patient seen in their room around 1430. Gradually improving. Persistent cough. Less SOB. Ambulated in hallway with PT. Less confused. Review of Systems: Constitutional- no fever. Cardiac- no chest pain. Pulmonary- as noted above. GI- no nausea, vomiting, diarrhea, melena, hematochezia. - Garcia cath removed. Otherwise, as noted above. Physical Exam Constitutional: no acute distress Eyes: + anicteric sclerae Respiratory: no respiratory distress Auscultation: + rhonchi and + wheezes Cardiovascular: Rate/Rhythm: regular rate and regular rhythm Vessels: no JVD Extremities: no calf tenderness and no edema Gastrointestinal (Abdomen): normal bowel sounds, soft, nontender, no hepatosplenomegaly Musculoskeletal: Extremities: no cyanosis Skin: no rashes, warm and dry Psychiatric: Orientation: alert; + not oriented x 3 (oriented to person, place, day of week, year, not president) Results & Data Results & Data ([facility]) Vital Signs (Past 12 Hours) Vital Signs Temp Pulse Pulse Resp BP Pulse Ox 05/03/20 22:00 36.8 C 75 20 98/69 L 94 05/03/20 19:00 36.9 C 79 18 111/76 94 05/03/20 16:10 79 05/03/20 15:06 36.7 C 78 16 115/74 96 05/03/20 11:14 36.5 C 65 16 136/74 95 Laboratory Results 05/03/20 08:11
[2020-05-04] MEDS: methylPREDNISolone 20 MG in SYRINGE 0 ML IV SCH ×3 (05:39→21:21)
[2020-05-04] MEDS: HEPARIN SOD 5,000 UNIT/0.5 ML VIAL SQ SCH ×3 (05:40→21:20)
[2020-05-04] MEDS: LEVOTHYROXINE SODIUM 50 MCG TABLET PO SCH (05:52)
[2020-05-04 05:57] LABS: Hematocrit (blood only) 34.7 % (37-47); Hemoglobin 11.5 g/dL (12.0-16.0); Mean Corpuscular Hemoglobin 30.1 pg (25-34); Mean Corpuscular Hgb Conc 33.1 g/dL (32-36); Mean Corpuscular Volume 90.8 fL (80-100); Mean Platelet Volume 9.3 fL (7.4-10.4); Platelet Count 244 K/uL (130-400); RDW Coefficient of Variation 13.9 % (11.5-14.5); RDW Standard Deviation 46.7 fL (36.4-46.3); Red Blood Count 3.82 M/uL (4.2-5.4); White Blood Count 14.31 K/uL (4.8-10.8)
[2020-05-04 06:45] LABS: Albumin Globulin Ratio 0.8 (0.9-2); Albumin Level 2.8 gm/dl (3.4-5.0); BUN Creatinine Ratio 26.4 (10-20); Bilirubin Direct 0.1 mg/dl (0-0.2); Bilirubin,Total 0.5 mg/dl (0.2-1); Calcium 8.6 mg/dl (8.5-10.1); Creatinine Clr Calc Pharmacy 47.2 ml/min; Est GFR (African American) 67.3; Globulin 3.4 gm/dl (2.5-4.0); Total Protein 6.2 gm/dl (6.4-8.2)
[2020-05-04] MEDS: ATORVASTATIN 40 MG TAB PO SCH (08:09)
[2020-05-04] MEDS: ASPIRIN 81 MG ECTAB PO SCH (08:09)
[2020-05-04] MEDS: CLOPIDOGREL BISULFATE 75 MG TAB PO SCH (08:09)
[2020-05-04] MEDS: D5W AND 1/2NSS 1,000 ML IV SCH (11:49)
--- NOTE | 2020-05-04 18:38 | Hospitalist Progress Note ---
Date of Service May 04, 2020 Assessment & Plan (1) Acute respiratory failure with hypoxia: Presented with cough and SOB. O2 sats as low as 88% on RA. CT demonstrated bronchiolitis. Received supplemental O2. O2 weaned; now oxygenating well on RA. (2) Acute bronchiolitis: Presented with cough and SOB. CT demonstrated bronchiolitis. SARS-CoV-2 PCR negative x 2. BioFire resp panel positive for enterovirus/rhinovirus. Other pathogens negativ e. Continue O2, wean as tolerated. Continue steroids, wean as tolerated. Concomitant bacterial infection unlikely- stopped antibiotics. (3) Acute kidney injury: Serum creatinine 1.23 --> 1.57. Acute kidney injury, probably secondary to dehydration. Received IV fluids. Creatinine today = 0.98. Stop IV fluids. Follow. (4) Encephalopathy: Baseline mild dementia. Presented with worsening confusion and lethargy. CT showed old cerebrovascular events and previously noted meningioma, no acute findings. Probable encephalopathy / delirium, multifactorial (infection, dehydration, hypoxia). Improved. (5) Abnormal liver function tests: AST 30 --> 170 --> 75. ALT 28 --> 216 --> 152. Bilirubin and alk phos normal. No GI symptoms. CT showed cholelithiasis without apparent obstruction. Elevated transaminases could be secondary to viral infection or due to skeletal muscle injury from fall. Improving. (6) Hypertension: Lisinopril held due to TRISH. Hemodynamically stable. BP this morning 131/74. Follow. (7) Cerebrovascular disease: History of TIA's and strokes. No acute findings on CT. Continue antiplatelet meds and statin. (8) CKD (chronic kidney disease) stage 3, GFR 30-59 ml/min: Acute kidney injury as noted above. Follow. (9) Hypothyroidism: TSH 0.593. Continue levothyroxine. (10) Dementia: Baseline mild dementia. May have vascular dementia and/or other etiology. Superimposed delirium- improved. (11) Adnexal mass: CT demonstrated "7.2 x 4.8 cm cystic left adnexal lesion which contains at least one septation." Will need outpatient referral to Gynecology. informed. (12) Lucency of femoral head on x-ray: CT demonstrated: "Lucency within the anterior wall of the right acetabulum adjacent to the acetabular cup of the right hip arthroplasty. This could reflect osteolysis. Lucency adjacent to the femoral component of the right hip arthroplasty raises the possibility of loosening." Outpatient follow-up with Ortho. (13) DVT prophylaxis: SQ heparin. Ambulate. (14) Discharge planning issues: Discharge disposition to be determined- probable DC to home. Family Medicine follow-up with Dr. Max Pendleton. Admission and Anticipated Discharge Date Admission Date: May 01, 2020 Subjective Recheck for multiple problems. Patient seen in their room around 0740. Persistent cough. Less SOB. Weaned off O2. Review of Systems: Constitutional- no fever. Cardiac- no chest pain. Pulmonary- as noted above. GI- no nausea, vomiting, diarrhea, melena, hematochezia. - Garcia cath removed; voiding without difficulty. Otherwise, as noted above. Physical Exam Constitutional: no acute distress Eyes: + anicteric sclerae Respiratory: no respiratory distress Auscultation: + rhonchi and + wheezes Cardiovascular: Rate/Rhythm: regular rate and regular rhythm Vessels: no JVD Extremities: no calf tenderness and no edema Gastrointestinal (Abdomen): normal bowel sounds, soft, nontender, no hepatosplenomegaly Musculoskeletal: Extremities: no cyanosis Skin: no rashes, warm and dry Psychiatric: Orientation: alert Results & Data Results & Data ([facility]) Vital Signs (Past 12 Hours) Vital Signs Temp Pulse Pulse Resp BP Pulse Ox 05/04/20 15:05 36.4 C L 73 17 156/82 H 94 05/04/20 14:57 78 05/04/20 11:30 36.4 C L 75 16 154/76 H 94 05/04/20 07:59 36.6 C 60 16 131/74 95 05/04/20 07:06 79 Laboratory Results 05/04/20 05:40 05/04/20 05:40
[2020-05-05] MEDS: LEVOTHYROXINE SODIUM 50 MCG TABLET PO SCH (06:17)
[2020-05-05] MEDS: HEPARIN SOD 5,000 UNIT/0.5 ML VIAL SQ SCH ×3 (06:19→21:51)
[2020-05-05] MEDS: methylPREDNISolone 20 MG in SYRINGE 0 ML IV SCH ×2 (06:20→13:04)
[2020-05-05] MEDS: ATORVASTATIN 40 MG TAB PO SCH (08:36)
[2020-05-05] MEDS: ASPIRIN 81 MG ECTAB PO SCH (08:36)
[2020-05-05] MEDS: CLOPIDOGREL BISULFATE 75 MG TAB PO SCH (08:36)
--- NOTE | 2020-05-05 17:30 | Hospitalist Progress Note ---
Date of Service May 05, 2020 Assessment & Plan (1) Acute respiratory failure with hypoxia: Presented with cough and SOB. O2 sats as low as 88% on RA. CT demonstrated bronchiolitis. Received supplemental O2. O2 weaned; now oxygenating well on RA. (2) Acute bronchiolitis: Presented with cough and SOB. CT demonstrated bronchiolitis. SARS-CoV-2 PCR negative x 2. BioFire resp panel positive for enterovirus/rhinovirus. Other pathogens negativ e. Continue O2, wean as tolerated. Continue steroids, wean as tolerated. Concomitant bacterial infection unlikely- stopped antibiotics. (3) Acute kidney injury: Serum creatinine 1.23 --> 1.57. Acute kidney injury, probably secondary to dehydration. Received IV fluids. Creatinine yesterday = 0.98. Stopped IV fluids. Follow. (4) Encephalopathy: Baseline mild dementia. Presented with worsening confusion and lethargy. CT showed old cerebrovascular events and previously noted meningioma, no acute findings. Probable encephalopathy / delirium, multifactorial (infection, dehydration, hypoxia). Improved. (5) Abnormal liver function tests: AST 30 --> 170 --> 75. ALT 28 --> 216 --> 152. Bilirubin and alk phos normal. No GI symptoms. CT showed cholelithiasis without apparent obstruction. Elevated transaminases could be secondary to viral infection or due to skeletal muscle injury from fall. Improving. (6) Hypertension: Lisinopril held due to TRISH. Hemodynamically stable. BP this morning 170/84. Resume lisinopril. Follow. (7) Cerebrovascular disease: History of TIA's and strokes. No acute findings on CT. Continue antiplatelet meds and statin. (8) CKD (chronic kidney disease) stage 3, GFR 30-59 ml/min: Acute kidney injury as noted above. Follow. (9) Hypothyroidism: TSH 0.593. Continue levothyroxine. (10) Dementia: Baseline mild dementia. May have vascular dementia and/or other etiology. Superimposed delirium- improved. (11) Adnexal mass: CT demonstrated "7.2 x 4.8 cm cystic left adnexal lesion which contains at least one septation." Will need outpatient referral to Gynecology. informed. (12) Lucency of femoral head on x-ray: CT demonstrated: "Lucency within the anterior wall of the right acetabulum adjacent to the ac etabular cup of the right hip arthroplasty. This could reflect osteolysis. Lucency adjacent to the femoral component of the right hip arthroplasty raises the possibility of loosening." Outpatient follow-up with Ortho. (13) DVT prophylaxis: SQ heparin. Ambulate. (14) Discharge planning issues: Discharge disposition to be determined- home with services vs skilled care. Family Medicine follow-up with Dr. Max Pendleton. given update by phone this afternoon. Admission and Anticipated Discharge Date Admission Date: May 01, 2020 Subjective Recheck for multiple problems. Patient seen in their room around 1540. No fever. Cough improved. Less SOB. Ambulating with walker and assistance. Review of Systems: Constitutional- no fever. Cardiac- no chest pain. Pulmonary- as noted above. GI- no nausea, vomiting, diarrhea, melena, hematochezia. - voiding without difficulty. Otherwise, as noted above. Physical Exam Constitutional: no acute distress Respiratory: no respiratory distress Auscultation: + rhonchi (few) Cardiovascular: Rate/Rhythm: regular rate and regular rhythm Vessels: no JVD Extremities: no calf tenderness and no edema Gastrointestinal (Abdomen): normal bowel sounds, soft, nontender, no hepatospl enomegaly Musculoskeletal: Extremities: no cyanosis Skin: no rashes, warm and dry Psychiatric: Orientation: alert Results & Data Results & Data ([facility]) Vital Signs (Past 12 Hours) Vital Signs Temp Pulse Pulse Resp BP Pulse Ox 05/05/20 16:24 75 05/05/20 14:40 36.6 C 74 16 155/86 H 92 05/05/20 11:15 36.3 C L 66 16 171/82 H 93 05/05/20 07:49 64 05/05/20 07:19 36.3 C L 68 16 170/84 H 96
[2020-05-05] MEDS: lisinopriL 5 MG TAB PO SCH (18:36)
[2020-05-06] MEDS: LEVOTHYROXINE SODIUM 50 MCG TABLET PO SCH (06:10)
[2020-05-06] MEDS: HEPARIN SOD 5,000 UNIT/0.5 ML VIAL SQ SCH ×3 (06:10→21:18)
[2020-05-06 07:35] LABS: Alanine Aminotransferase 95 U/L (12-78); Aspartate Aminotransferase 32 U/L (15-37); BUN Creatinine Ratio 31.3 (10-20); Bilirubin Direct < 0.1 mg/dl (0-0.2); Blood Urea Nitrogen 35 mg/dl (7-18); Calcium 9.1 mg/dl (8.5-10.1); Carbon Dioxide 28 mmol/L (21-32); Chloride 106 mmol/L (98-107); Creatinine Clr Calc Pharmacy 41.5 ml/min; Est GFR (African American) 57.2; Est GFR (Non-African American) 49.4; Glucose 82 mg/dl (70-99); Potassium 4.4 mmol/L (3.5-5.1); Sodium 139 mmol/L (136-145)
[2020-05-06 07:38] LABS: Albumin Globulin Ratio 0.9 (0.9-2); Alkaline Phosphatase 79 U/L (45-117); Bilirubin,Total 0.5 mg/dl (0.2-1); Globulin 3.5 gm/dl (2.5-4.0); Total Protein 6.5 gm/dl (6.4-8.2)
[2020-05-06] MEDS: ASPIRIN 81 MG ECTAB PO SCH (08:16)
[2020-05-06] MEDS: predniSONE 20 MG TAB PO SCH (08:16)
[2020-05-06] MEDS: ATORVASTATIN 40 MG TAB PO SCH (08:16)
[2020-05-06] MEDS: CLOPIDOGREL BISULFATE 75 MG TAB PO SCH (08:16)
[2020-05-06] MEDS: lisinopriL 5 MG TAB PO SCH (08:16)
--- NOTE | 2020-05-06 19:08 | Hospitalist Progress Note ---
Date of Service May 06, 2020 Assessment & Plan (1) Acute respiratory failure with hypoxia: Presented with cough and SOB. O2 sats as low as 88% on RA. CT demonstrated bronchiolitis. Received supplemental O2. O2 weaned; now oxygenating well on RA. (2) Acute bronchiolitis: Presented with cough and SOB. CT demonstrated bronchiolitis. SARS-CoV-2 PCR negative x 2. BioFire resp panel positive for enterovirus/rhinovirus. Other pathogens negativ e. Concomitant bacterial infection unlikely- stopped antibiotics. Continue O2, wean as tolerated. Continue steroids, weaned from IV to PO. (3) Acute kidney injury: Serum creatinine 1.23 --> 1.57. Acute kidney injury, probably secondary to dehydration. Received IV fluids. Creatinine today = 1.12. Follow. (4) Encephalopathy: Baseline mild dementia. Presented with worsening confusion and lethargy. CT showed old cerebrovascular events and previously noted meningioma, no acute findings. Probable encephalopathy / delirium, multifactorial (infection, dehydration, hypoxia). Multifactorial Metabolic encephalopathy, present on admission. Improved. (5) Abnormal liver function tests: Laboratory Tests 05/01/20 05/03/20 05/06/20 09:50 08:11 06:47 Total Bilirubin 0.8 0.6 0.5 AST 57 H 170 H 32 ALT 56 216 H 95 H Alkaline Phosphatase [address] showed cholelithiasis without apparent obstruction. Elevated transaminases could be secondary to viral infection or due to skeletal muscle injury from fall. Improving. (6) Hypertension: Lisinopril held due to TRISH. Hemodynamically stable. BP's subsequently became elevated and lisinopril resumed. BP this morning 153/77, 129/77. Follow. (7) Cerebrovascular disease: History of TIA's and strokes. No acute findings on CT. Continue antiplatelet meds and statin. (8) CKD (chronic kidney disease) stage 3, GFR 30-59 ml/min: Acute kidney injury as noted above. Follow. (9) Hypothyroidism: TSH 0.593. Continue levothyroxine. (10) Dementia: Baseline mild dementia. May have vascular dementia and/or other etiology. Superimposed delirium- improved. (11) Adnexal mass: CT demonstrated "7.2 x 4.8 cm cystic left adnexal lesion which contains at least one septation." Will need outpatient referral to Gynecology. informed. (12) Lucency of femoral head on x-ray: CT demonstrated: "Lucency within the anterior wall of the right acetabulum adjacent to the acetabular cup of the right hip arthroplasty. This could reflect osteolysis. Lucency adjacent to the femoral component of the right hip arthroplasty raises the possibility of loosening." Outpatient follow-up with Ortho. (13) DVT prophylaxis: SQ heparin. Ambulate. (14) Discharge planning issues: Discharge disposition to be determined Patient has had 1 or 2 recent falls. Currently 1 person assist with walker. OT recommends SNF. Patient hopes to go home with home health services. Hopefully will be OK for DC to home with a little more time in hospital to recover and regain functional status. Family Medicine follow-up with Dr. Max Pendleton. given update by phone this evening. Admission and Anticipated Discharge Date Admission Date: May 01, 2020 Subjective Recheck for multiple problems. Patient seen in their room around 1630. No fever. Persistent cough and chest congestion. Less SOB. Ambulating with walker and assistance. Review of Systems: Constitutional- no fever. Cardiac- no chest pain. Pulmonary- as noted above. GI- no nausea, vomiting, diarrhea, melena, hematochezia. - voiding without difficulty. Otherwise, as noted above. Physical Exam Constitutional: no acute distress Eyes: + anicteric sclerae Respiratory: no respiratory distress Auscultation: + rhonchi (few) and + wheezes Cardiovascular: Rate/Rhythm: regular rate and regular rhythm Vessels: no JVD Extremities: no calf tenderness and no edema Gastrointestinal (Abdomen): normal bowel sounds, soft, nontender, no hepatosplenomegaly Musculoskeletal: Extremities: no cyanosis Skin: no rashes, warm and dry Psychiatric: Orientation: alert Results & Data Results & Data ([facility]) Vital Signs (Past 12 Hours) Vital Signs Temp Pulse Pulse Resp BP Pulse Ox 05/06/20 16:00 94 H 05/06/20 15:31 36.3 C L 83 16 119/71 93 05/06/20 11:55 36.7 C 66 18 129/77 94 05/06/20 08:00 63 05/06/20 07:10 36.4 C L 67 18 153/77 H 94 Laboratory Results Laboratory Results - last 24 hr 05/06/20 06:47 Sodium 139 Potassium 4.4 Chloride 106 Carbon Dioxide 28 Anion Gap 5.0 BUN 35 H Creatinine 1.12 Est Cr Clr Drug Dosing 41.5 Est GFR ( Amer) 57.2 Est GFR (Non-Af Amer) 49.4 BUN/Creatinine Ratio 31.3 H Glucose 82 Calcium 9.1 Total Bilirubin 0.5 Direct Bilirubin < 0.1 AST 32 ALT 95 H Alkaline Phosphatase 79 Total Protein 6.5 Albumin 3.0 L Globulin 3.5 Albumin/Globulin Ratio 0.9
[2020-05-07] MEDS: HEPARIN SOD 5,000 UNIT/0.5 ML VIAL SQ SCH ×3 (06:09→21:11)
[2020-05-07] MEDS: LEVOTHYROXINE SODIUM 50 MCG TABLET PO SCH (06:09)
[2020-05-07] MEDS: lisinopriL 5 MG TAB PO SCH (08:16)
[2020-05-07] MEDS: predniSONE 20 MG TAB PO SCH (08:16)
[2020-05-07] MEDS: ATORVASTATIN 40 MG TAB PO SCH (08:17)
[2020-05-07] MEDS: CLOPIDOGREL BISULFATE 75 MG TAB PO SCH (08:17)
[2020-05-07] MEDS: ASPIRIN 81 MG ECTAB PO SCH (08:17)
--- NOTE | 2020-05-07 16:09 | Hospitalist Progress Note ---
Date of Service May 07, 2020 Assessment & Plan (1) Acute respiratory failure with hypoxia: Acute Bronchiolitis CT chest:Scattered mild tree-in-bud nodules within the lungs which suggest a mild bronchiolitis. Exam mildly compromised by motion artifact. Mild cardiomegaly. Evidence for a previous granulomas process. SARS-CoV-2 PCR: negative Biofire: Enterovirus/rhinovirus Weaned off of supplemental oxygen Antibiotics discontinued On prednisone Taper Nebs PRN (2) Acute bronchiolitis: as above (3) Acute kidney injury: TRISH on CKD III Cr:1.57>>1.12 Likely prerenal Received IV fluids. Monitor renal function Avoid nephrotoxic agents as able (4) Encephalopathy: CT Head:No significant change compared to the prior study. No acute intracranial abnormality. Chronic findings as described above. Baseline mild dementia. Likely metabolic Encephalopathy / delirium Resolved (5) Abnormal liver function tests: CT showed cholelithiasis without apparent obstruction. Elevated transaminases could be secondary to viral infection Improving Monitor LFTs (6) Hypertension: Stable Continue Lisinopril monitor (7) Cerebrovascular disease: H/O TIA's and CVAs CT Head as above Continue aspirin, Plavix, statin. (8) CKD (chronic kidney disease) stage 3, GFR 30-59 ml/min: as above (9) Hypothyroidism: TSH 0.593. Continue levothyroxine. (10) Dementia: Baseline mild dementia. Likely vascular dementia monitor (11) Adnexal mass: CT ABD:7.2 x 4.8 cm cystic left adnexal lesion which contains at least one septation. This is considered pathologic in a postmenopausal patient and a follow-up nonemergent pelvic ultrasound to evaluate for complexity is recommended. Needs follow up with HAND ROUTER OPERATOR as outpatient (12) Lucency of femoral head on x-ray: CT showed:Lucency within the anterior wall of the right acetabulum adjacent to the acetabular cup of the right hip arthroplasty. This could reflect osteolysis. Lucency adjacent to the femoral component of the right hip arthroplasty raises the possibility of loosening. Needs follow up with Ortho as outpatient (13) DVT prophylaxis: Heparin SQ (14) Discharge planning issues: H/O recent falls. PT/OT eval done Patient prefers to go home with home health services. Admission and Anticipated Discharge Date Admission Date: May 01, 2020 Subjective Patient is seen and examined at bedside States having cough with yellowish expectoration Denies chest pain, shortness of breath, dizziness, nausea, abdominal pain Offers no other complaints Afebrile Review of Systems Review of Systems: All systems reviewed & are unremarkable except as noted in HPI & below Physical Exam Physical Exam: Physical Exam: Vitals signs as noted above General Appearance:Moderately built and nourished, no apparent distress Head: normocephalic, Atraumatic Eyes: normal inspection, EOMI Neck: supple, Trachea midline Respiratory/Chest: Normal breath sounds, scattered rhonchi Cardiovascular: S1, S2, No murmur Abdomen/GI:Soft, Non tender, Bowel sounds present Extremities/Musculoskelatal:normal inspection, Trace edema Neurologic/Psych:Alert, awake, grossly no focal neurological deficits Skin: normal color, warm Results & Data Results & Data ([facility]) Vital Signs (Past 12 Hours) Vital Signs Temp Pulse Pulse Resp BP Pulse Ox 05/07/20 15:28 112 H 05/07/20 15:09 36.3 C L 92 H 16 123/75 94 05/07/20 11:05 36.5 C 93 H 16 102/67 93 05/07/20 08:30 72 05/07/20 06:23 36.4 C L 68 16 133/84 95
[2020-05-08] MEDS: HEPARIN SOD 5,000 UNIT/0.5 ML VIAL SQ SCH ×2 (05:46→13:31)
[2020-05-08] MEDS: LEVOTHYROXINE SODIUM 50 MCG TABLET PO SCH (05:46)
[2020-05-08 06:55] LABS: BUN Creatinine Ratio 42.2 (10-20); Creatinine Clr Calc Pharmacy 36.6 ml/min; Est GFR (African American) 48.7
[2020-05-08] MEDS: predniSONE 20 MG TAB PO SCH (07:56)
[2020-05-08] MEDS: ASPIRIN 81 MG ECTAB PO SCH (07:56)
[2020-05-08] MEDS: lisinopriL 5 MG TAB PO SCH (07:56)
[2020-05-08] MEDS: CLOPIDOGREL BISULFATE 75 MG TAB PO SCH (07:56)
[2020-05-08] MEDS: ATORVASTATIN 40 MG TAB PO SCH (07:57)
--- NOTE | 2020-05-08 13:49 | Hospitalist Progress Note ---
Date of Service May 08, 2020 Assessment & Plan (1) Acute respiratory failure with hypoxia: Acute Bronchiolitis CT chest:Scattered mild tree-in-bud nodules within the lungs which suggest a mild bronchiolitis. Exam mildly compromised by motion artifact. Mild cardiomegaly. Evidence for a previous granulomas process. SARS-CoV-2 PCR: negative Biofire: Enterovirus/rhinovirus Weaned off of supplemental oxygen Saturating well on room air Antibiotics discontinued On prednisone Taper--to complete upon discharge Nebs PRN (2) Acute bronchiolitis: as above (3) Acute kidney injury: TRISH on CKD III Cr:1.57>>1.12 Likely prerenal Received IV fluids. Monitor renal function Avoid nephrotoxic agents as able (4) Encephalopathy: CT Head:No significant change compared to the prior study. No acute intracranial abnormality. Chronic findings as described above. Baseline mild dementia. Likely metabolic Encephalopathy / delirium Resolved (5) Abnormal liver function tests: CT showed cholelithiasis without apparent obstruction. Elevated transaminases could be secondary to viral infection Improving Monitor LFTs (6) Hypertension: Stable Continue Lisinopril monitor (7) Cerebrovascular disease: H/O TIA's and CVAs CT Head as above Continue aspirin, Plavix, statin. (8) CKD (chronic kidney disease) stage 3, GFR 30-59 ml/min: as above (9) Hypothyroidism: TSH 0.593. Continue levothyroxine. (10) Dementia: Baseline mild dementia. Likely vascular dementia monitor (11) Adnexal mass: CT ABD:7.2 x 4.8 cm cystic left adnexal lesion which contains at least one septation. This is considered pathologic in a postmenopausal patient and a follow-up nonemergent pelvic ultrasound to evaluate for complexity is recommended. Needs follow up with COOKER PROCESS CHEESE as outpatient (12) Lucency of femoral head on x-ray: CT showed:Lucency within the anterior wall of the right acetabulum adjacent to the acetabular cup of the right hip arthroplasty. This could reflect osteolysis. Lucency adjacent to the femoral component of the right hip arthroplasty raises the possibility of loosening. Needs follow up with Ortho as outpatient (13) DVT prophylaxis: Heparin SQ (14) Discharge planning issues: Plan to discharge home with home health. Admission and Anticipated Discharge Date Admission Date: May 01, 2020 Subjective Patient is seen and examined at bedside States feeling well today Did well with physical therapy earlier this morning No new complaints Eager to get discharged Denies chest pain, shortness of breath, dizziness, nausea, abdominal pain Review of Systems Review of Systems: All systems reviewed & are unremarkable except as noted in HPI & below Physical Exam Physical Exam: Physical Exam: Vitals signs as noted above General Appearance:Moderately built and nourished, no apparent distress Head: normocephalic, Atraumatic Eyes: normal inspection, EOMI Neck: supple, Trachea midline Respiratory/Chest: Normal breath sounds, scattered rhonchi Cardiovascular: S1, S2, No murmur Abdomen/GI:Soft, Non tender, Bowel sounds present Extremities/Musculoskelatal:normal inspection, Trace edema Neurologic/Psych:Alert, awake, grossly no focal neurological deficits Skin: normal color, warm Results & Data Results & Data ([facility]) Vital Signs (Past 12 Hours) Vital Signs Temp Pulse Pulse Resp BP BP Pulse Ox 05/08/20 11:47 36.5 C 88 18 124/69 95 05/08/20 08:19 36.7 C 71 16 132/81 95 05/08/20 07:15 67 05/08/20 03:27 36.6 C 74 16 110/68 94 Laboratory Results [facility] 05/08/20 06:05 Sodium 139 Potassium 5.0 Chloride 103 Carbon Dioxide 30 BUN 54 H D Creatinine 1.28 H Glucose 77 Calcium 9.0
--- NOTE | 2020-05-08 13:58 | Discharge Summary ---
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 Case was discussed with the ED provider who provided history for today's and yesterday's visit. Apparently patient came to ER yesterday secondary to increased weakness and listlessness. Per physical exam she did have rhonchi and was felt to have a mild bout of bronchitis. She was placed on oral azithromycin and discharged to home. Apparently when discharged home had to carry her into the house and placed her in a recliner. She remained in recliner the rest of the evening and was unable to get up. Due to worsening symptoms and weakness EMS was summoned again today. According to report patient does have history of mild dementia at baseline but is otherwise independent ADLs and is able to ambulate without device at baseline. She is otherwise poor historian and only alert to self. Patient currently complains of cough, productive in nature, apparent for 4 days. She also elicits increased weakness, lethargy and fatigue. He denies documented fever, chills, sweats, lightheadedness, dizziness, syncope or fall, chest pain, shortness of breath, nausea, vomiting, abdominal pain. She does complain of mild dysuria but denies of any hematuria, melena, dyschezia, diarrhea. Again history unreliable due to cognition. In ED she did remain hemodynamically stable. Notable lab abnormalities include worsening leukocytosis 11.4 7K, BUN 37, creatinine 1.57, glucose 100, AST 57, CK 348. Her urinalysis was generally unremarkable. Initial chest x-ray Negative for acute abnormality. Head CT was performed and compared to yesterday's exam which revealed chronic findings of old left parietal infarct and microvascular ischemic changes. No other acute abnormality noted. CT abdomen pelvis revealed 7.2 x 4.8 cm incidental finding of a cystic left adnexal lesion concerning for pathologic and recommending nonemergent pelvic ultrasound. Also noted was airspace opacity of right lower lobe, lucency to right hip arthroplasty. This was concerning for loosening. CT chest was performed Revealed scattered mild tree-in-bud nodules in the lungs suggesting a mild bronchiolitis. Admission Exam Per Admitting Provider Physical Exam Physical Exam: Constitutional: Thin, petite, F, vitals as above, NAD, sitting up in bed, answers questions but oriented to self only,large amount of sputum on L lower chin Head: Normocephalic, Atraumatic Eyes: PERRL, conjunctivae normal, anicteric sclerae ENMT: hard of hearing, external ear and nose normal, oropharynx normal Neck: trachea midline, no thyromegaly normal visual inspection Respiratory: shallow respirations, lungs clear to auscultation with rhonchi noted to RLL, no wheeze, rales. On O2 3L via oxymask. Normal insp/exp effort, no accessory muscle use Cardiovascular: RRR, no murmur, no edema Vessels: no JVD or carotid bruit Chest: normal inspection of chest Abdomen: normal bowel sounds, soft, nontender, no hepatosplenomegaly Musculoskeletal: no cyanosis or clubbing, extremities motor strength 5/5 Skin: no rashes, warm and dry normal turgor Neurologic: PERRL, EOMI, accommodation nl, no face palsy, no dysarthria CN's II-XI intact bilaterally and moves all extremities Psychiatric: A+Ox1 self only, understands she is in hospital but thinks [place], euthymic affect Lymphatic: no cervical or axillary lymphadenopathy :kat cath with abel urine Principal Diagnosis Acute Bronchiolitis Acute kidney injury Metabolic Encephalopathy Discharge Data Allergies Allergy/AdvReac Type Severity Reaction Status Date / Time latex Allergy Unknown RASH Verified 05/01/20 10:43 No Known Drug Allergies Allergy Unknown . Verified 05/01/20 10:43 Consultations 05/01/20 13:08 ED Decision to Admit Stat 05/01/20 17:31 Consult Case Management - Discharge Planning Routine Procedures Performed CT chest:Scattered mild tree-in-bud nodules within the lungs which suggest a mild bronchiolitis. Exam mildly compromised by motion artifact. Mild cardiomegaly. Evidence for a previous granulomas process. CT Head:No significant change compared to the prior study. No acute intracranial abnormality. Chronic findings as described above. Ordered Studies 05/01/20 09:01 CT abd pelvis IV con only Stat CT head/brain wo con Stat 05/01/20 11:48 CT chest wo con Stat Hospital Course (1) Acute respiratory failure with hypoxia: Acute Bronchiolitis CT chest:Scattered mild tree-in-bud nodules within the lungs which suggest a mild bronchiolitis. Exam mildly compromised by motion artifact. Mild cardiomegaly. Evidence for a previous granulomas process. SARS-CoV-2 PCR: negative Biofire: Enterovirus/rhinovirus Weaned off of supplemental oxygen Saturating well on room air Antibiotics discontinued On prednisone Taper--to complete upon discharge Nebs PRN (2) Acute bronchiolitis: as above (3) Acute kidney injury: TRISH on CKD III Cr:1.57>>1.12 Likely prerenal Received IV fluids. Monitor renal function Avoid nephrotoxic agents as able (4) Encephalopathy: CT Head:No significant change compared to the prior study. No acute intracranial abnormality. Chronic findings as described above. Baseline mild dementia. Likely metabolic Encephalopathy / delirium Resolved (5) Abnormal liver function tests: CT showed cholelithiasis without apparent obstruction. Elevated transaminases could be secondary to viral infection Improving Monitor LFTs (6) Hypertension: Stable Continue Lisinopril monitor (7) Cerebrovascular disease: H/O TIA's and CVAs CT Head as above Continue aspirin, Plavix, statin. (8) CKD (chronic kidney disease) stage 3, GFR 30-59 ml/min: as above (9) Hypothyroidism: TSH 0.593. Continue levothyroxine. (10) Dementia: Baseline mild dementia. Likely vascular dementia monitor (11) Adnexal mass: CT ABD:7.2 x 4.8 cm cystic left adnexal lesion which contains at least one septation. This is considered pathologic in a postmenopausal patient and a follow-up nonemergent pelvic ultrasound to evaluate for complexity is recommended. Needs follow up with GRINDER BRAKE LINING as outpatient (12) Lucency of femoral head on x-ray: CT showed:Lucency within the anterior wall of the right acetabulum adjacent to the acetabular cup of the right hip arthroplasty. This could reflect osteolysis. Lucency adjacent to the femoral component of the right hip arthroplasty raises the possibility of loosening. Needs follow up with Ortho as outpatient (13) DVT prophylaxis: Heparin SQ (14) Discharge planning issues: Plan to discharge home with home health. Total Time Total Time Spent Total Time Spent (In Minutes): 38 minutes Total Time Includes: Examination of the Patient, Discharge Planning, Medication Reconciliation, Communication With Other Providers and Other Discharge Plan Discharge Items Patient Disposition: Home - Home Health Services Reason For Visit: LETHARGY BRONCHIOLITIS Discharge Diagnosis: Acute Bronchiolitis Acute kidney injury Metabolic Encephalopathy Activity: Resume your previous activity Exercise/Sports: Gradually increase as tolerated Non-emergency contact: Primary Care Provider, Surgeon and Sprinkler Fitter Apprentice Call non-emergency contact if: you have any medication questions, your symptoms worsen, your pain is not controlled, your pain is worsening, your pain is unusual for you, your pain is concerning for you and you have a fever Follow-up/Referrals: Max Pendleton, DO [Primary Care Provider] - None Diet: Heart Healthy Addtl Attending Provider Instructions: Follow-up with your primary care physician on May 12, 2020 at 11:05 AM Follow-up with your plant operations engineer for further evaluation and management of Adnexal mass--incidentally found on CT scan Follow-up with your orthopedic surgeon for evaluation of your right hip--- re garding possibility of loosening of arthroplasty. Complete the prednisone course--10 mg daily for 3 more days and stop Seek immediate medical attention if your symptoms reoccur or worsen Addtl Simonizer Provider Instructions: Testing showed that you had a virus called rhinovirus that was causing your cough. Recommendations: How to Protect Yourself Wash your hands often with soap and water. Wash them for 20 seconds. If soap and water are not available, use an alcohol-based hand electrotype finisher. Avoid touching your eyes, nose, and mouth with unwashed hands. Viruses that cause colds can enter your body this way and make you sick Avoid kissing, hugging, and sharing cups or eating utensils with people who are sick. Disinfect frequently touched surfaces, such as toys and doorknobs, especially if someone is sick. How to Protect Others If you have a cold, you should follow these tips to help prevent spreading it to other people: Stay at home while you are sick. Avoid close contact with others, such as hugging, kissing, or shaking hands. Move away from people before coughing or sneezing. Cough and sneeze into a tissue then throw it away, or cough and sneeze into your upper shirt sleeve, completely covering your mouth and nose. Wash your hands after coughing, sneezing, or blowing your nose. Pending Studies at Discharge: No Stand-Alone Forms: My [facility] [address], Smoking Cessation Medications and DC Order Prescriptions: New prednisone 10 mg tablet 10 mg PO DAILY Qty: 3 RF: 0 Continued azithromycin [Zithromax] 250 mg tablet 250 mg PO QAM RF: 0 multivitamin [Multiple Vitamins] Tablet 1 tab PO QAM RF: 0 atorvastatin 40 mg tablet 40 mg PO QAM RF: 0 clopidogrel 75 mg tablet 75 mg PO QAM RF: 0 aspirin [Aspir-81] 81 mg Tablet,Delayed Release (Dr/Ec) 81 mg PO QAM RF: 0 levothyroxine 50 mcg tablet 50 mcg PO QAM RF: 0 lisinopril 10 mg tablet 10 mg PO QAM RF: 0 omega 4-raa-rra-fish oil [Fish Oil] 1,000 mg (120 mg-180 mg) Capsule 1 cap PO QAM RF: 0 calcium carbonate-vitamin D3 [Os-Tobias 500 + D3] 500mg (1,250mg) -600 unit Tablet 1 tab PO QAM RF: 0 Discharge Orders: Discharge Order (Routine); Ordered 05/08/20 Ordered By: Al Mccollum Admission Data Admit Date/Time: 05/01/20 13:33 Attending Provider: Al Mccollum Admit Provider: Jay Castañeda Primary Care Provider: Max Pendleton Other Providers: Jay Castañeda ; [facility] Other Interventions: Discharge Summary Assessment (RN) Last Done: 05/08/20 13:51
== END 2020-05-08 14:41 | disposition home health service (06) | DRG 189 ==
LOC: ED 08:44 → SUATTDRO 13:33 → 2W 13:33

== ENCOUNTER 2021-01-24 01:26 | Inpatient (IN) ==
[2021-01-24] MEDS ORDERED: LEVALBUTEROL HCL 1.25 MG/3 ML NEB NEB STA (01:31)
[2021-01-24] MEDS ORDERED: ACETAMINOPHEN 1,000 MG/100 ML VIAL IV STA (01:31)
--- NOTE | 2021-01-24 01:47 | Emergency Department Note ---
Impression & Plan Anemia, GI bleed ED Provider Note NAME: SHAN GRAY AGE: 70 SEX: F : 1950 ARRIVES VIA: Ambulance INFORMANT: Patient, ED PROVIDER(S): Leo Goldsmith MD CHIEF COMPLAINT: Altered mental Status HPI: This 70-year-old female who presents to the emergency department complaining of altered mental status. Patient's reports that the patient has been altered for the past 3 days. She has also had a cough for the past 3 weeks. Upon arrival to the emergency department the patient does not know where she is, the day of the week. She has no complaints though appears very tired. Nothing has been given for the confusion or the cough. Nothing seems to make the cough any better or worse. ROS: See above HPI for pertinent positives & negatives. A total of 10 systems reviewed and were otherwise negative. PAST MEDICAL HISTORY: See Below PAST SURGICAL HISTORY: See Below FAMILY HISTORY: See Below SOCIAL HISTORY: See Below HOME MEDICATIONS: See Below ALLERGIES: See Below VITALS: See Below PHYSICAL EXAMINATION: VITAL SIGNS - Vital signs and nursing notes were reviewed. GENERAL - 70-year-old female appearing stated age who is in no acute distress, appears tired on exam, cachectic in appearance SKIN - Without rashes. HEAD - NC/AT. EYES - PERRL with EOMI bilaterally. Sclera anicteric. Palpebral conjunctiva pink and moist with no injection noted. EARS - No deformities of external structures noted on gross examination bilaterally. NOSE - Midline and without cyanosis. No epistaxis or purulent drainage noted. Septum midline without deviation or septal hematoma noted. MOUTH/OROPHARYNX - Without perioral cyanosis. Buccal mucosa pink and moist and without leukoplakia. Tongue midline with equal elevation of palate bilaterally. No tonsillar hypertrophy, erythema, or exudates noted. NECK - Neck with FROM. Supple to palpation. No nuchal rigidity. LUNGS - Chest wall symmetric without accessory muscle use, intercostals retractions, or central cyanosis. Normal vesicular breath sounds CTA B/L. No wheezes, rales, or rhonchi appreciated. CARDIAC - RRR with S1/S2. No murmur, rubs, or gallops appreciated. ABDOMEN - Abdominal contour without pulsations or visible masses. BS normoactive all four quadrants. No tenderness, palpable masses, hepatosplen omegaly, or ascites noted. RECTAL: Black tarry stool, heme positive EXTREMITIES - No clubbing or peripheral cyanosis. No pretibial edema present. +3/5 radial, posterior tibial, and dorsalis pedis pulses palpated throughout. +5/5 strength noted in UE/LE bilaterally. NEUROLOGIC - Cranial nerves II through XII grossly intact. Sensory intact to light touch throughout. Patellar reflexes +2/4. MEDICAL DECISION MAKING: Patient was seen and evaluated as above in room C3. Review was performed of n ursing notes and vital signs. I did review pertinent previous visits and patient history. After obtaining a thorough history and physical examination the above work up was performed. This 70-year-old female sent in from home over concerns of the patient has an altered mental status. The patient's hemoglobin was found to be 5. She is heme positive from below and has black tarry stool. I tried contacting this patient's without success. She was started on IV Protonix bolus and drip. I eventually was able to get a hold of the patient's after sending state police to his house to consent for blood transfusion. An order was placed for continuous cardiac monitoring. The monitor shows a rate of 85 with Junctional rhythm. The patient was evaluated during a period of high volume and high acuity during the global COVID-19 pandemic, and that diagnosis was suspected/considered upon their initial presentation. Their evaluation, treatment and testing was consistent with current guidelines for patients who present with complaints or symptoms that may be related to COVID-19. Patient was seen while provider was wearing PPE. Triage Nursing notes reviewed. Prior medical records reviewed Vital Signs: reviewed and remarkable for no significant abnormalities Differential diagnosis: Diverticulosis, AVM, coagulopathy, colitis, inflammatory bowel disease, malignancy, Siomara-Sauer tear, esophagitis, peptic ulcer disease, variceal bleed, gastritis, epistaxis, fissure, hemorrhoids, as well as other pathologies. ER treatment provided: See below Diagnostics interpreted by me: ECG: Accelerated junctional rhythm with PVC no ST elevation or depression QTC is 462 ventricular rate is 81 EKG is compared to 05/01/2020 X junctional rhythm appears to have replaced normal sinus rhythm. Repeat EKG shows a normal sinus rhythm no ST elevation or depression QTC is 459 ventricular rate is 95 EKG is compared to 05/01/2020 and there are no changes. Laboratory studies: As stated above and show below. Imaging studies: A 1 view of the chest shows chronic findings no evidence pneumonia congestion or pneumothorax. Chest x-ray is compared to 05/01/2020 and there were no acute changes. Consultation(s): Internal Medicine Critical Care: I have personally spent greater than 30 minutes of critical care time in the direct management of this patient. This includes bedside care, interpretation of diagnostic studies, and testing, discussion with consultants, patient, and family members, and other required patient management activities. This 30 minutes is in excess of all separately billable procedures. Past Med/Surg History Medical History (Updated 01/24/21 @ 03:59 by Leo Goldsmith MD) Adnexal mass CT [facility] 05/01/20 - 7.2 x 4.8 cm cystic L adnexal mass Cerebrovascular disease History of stroke and TIA's. 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 History of sinus surgery Status post bilateral hip replacements Family History Other Family history unobtainable due to patient's condition Social History Smoking Status: Unknown if ever smoked Second Hand Exposure: No; Hx Alcohol Use: No Hx Substance Use: No Preferred Language: Croatian Communication Ability: Effective Filtration Operator Required: No Beliefs That Will Affect Care: None marital status: Current Living Situation: Spouse current occupational status: retired Feels Safe at Home: Yes Assistive Devices: Walker Allergies Allergies Allergy/AdvReac Type Severity Reaction Status Date / Time latex Allergy Unknown RASH Verified 01/24/21 01:52 No Known Drug Allergies Allergy Unknown . Verified 01/24/21 01:52 Home Meds Home Medications Medication Instructions Recorded Confirmed atorvastatin 40 mg PO QAM 10/06/18 01/24/21 calcium carbonate-vitamin D3 1 tab PO QAM 10/06/18 01/24/21 [Os-Tobias 500 + D3] clopidogrel 75 mg PO QAM 10/06/18 01/24/21 levothyroxine 50 mcg PO QAM 10/06/18 01/24/21 lisinopril 10 mg PO QAM 10/06/18 01/24/21 omega 6-nng-jes-fish oil [Fish Oil] 1 cap PO QAM 10/06/18 01/24/21 acetaminophen [Tylenol] 325 mg PO QID PRN 01/24/21 01/24/21 albuterol sulfate 2 inh INHALATION Q4 PRN 01/24/21 01/24/21 aspirin [Baby Aspirin] 81 mg PO DAILY 01/24/21 01/24/21 docusate sodium 100 mg PO BID 01/24/21 01/24/21 loratadine [Claritin] 10 mg PO DAILY 01/24/21 01/24/21 multivitamin 1 tab PO DAILY 01/24/21 01/24/21 simethicone 80 mg PO Q6 PRN 01/24/21 01/24/21 Results & Data (ED) Vital Signs Vital Signs - 24 hr 01/24/21 01:31 01/24/21 01:37 01/24/21 01:45 Temperature 36.3 C L Temperature Source Oral Pulse Rate 88 76 Pulse Rate [Apical] Pulse Rate from SpO2 Sensor 77 Respiratory Rate 12 18 Respiratory Effort / Characteristics Non-Labored Spontaneous Spontaneous Respiratory Depth Normal Respiratory Pattern Regular Blood Pressure 121/60 Blood Pressure Mean 80 Pulse Oximetry 97 97 Oxygen Delivery Method Room Air Room Air Room Air Sepsis New/Unexplained Change in Mental Status Yes Sepsis Action Taken by Nursing No Action Required 01/24/21 02:00 01/24/21 02:01 01/24/21 02:15 Temperature Temperature Source Pulse Rate 85 86 Pulse Rate [Apical] Pulse Rate from SpO2 Sensor 85 Respiratory Rate 16 23 Respiratory Effort / Characteristics Non-Labored Spontaneous Respiratory Depth Respiratory Pattern Blood Pressure 117/63 Blood Pressure Mean 81 Pulse Oximetry 96 Oxygen Delivery Method Room Air Room Air Sepsis New/Unexplained Change in Mental Status Sepsis Action Taken by Nursing 01/24/21 02:30 01/24/21 02:31 01/24/21 02:40 Temperature Temperature Source Pulse Rate 91 H Pulse Rate [Apical] 92 H Pulse Rate from SpO2 Sensor Respiratory Rate 18 24 Respiratory Effort / Characteristics Non-Labored Spontaneous Spontaneous Respiratory Depth Respiratory Pattern Blood Pressure Blood Pressure Mean Pulse Oximetry 97 Oxygen Delivery Method Room Air Room Air Sepsis New/Unexplained Change in Mental Status Sepsis Action Taken by Nursing 01/24/21 02:44 01/24/21 03:00 Temperature Temperature Source Pulse Rate 89 103 H Pulse Rate [Apical] Pulse Rate from SpO2 Sensor 89 Respiratory Rate 19 24 Respiratory Effort / Characteristics Non-Labored Spontaneous Respiratory Depth Respiratory Pattern Blood Pressure 125/61 124/75 Blood Pressure Mean 82 91 Pulse Oximetry 100 95 Oxygen Delivery Method Room Air Room Air Sepsis New/Unexplained Change in Mental Status Sepsis Action Taken by Nursing Laboratory Data Result diagrams: 01/24/21 01:10 01/24/21 01:10 Lab Results 01/24/21 01/24/21 01/24/21 Range/Units 01:10 01:10 01:10 WBC 7.05 (4.8-10.8) K/uL RBC 1.90 L (4.2-5.4) M/uL Hgb 5.8 L* (12.0-16.0) g/dL Hct 18.1 L* (37-47) % MCV 95.3 (80-100) fL MCH 30.5 (25-34) pg MCHC 32.0 (32-36) g/dL RDW Std Deviation 56.9 H (36.4-46.3) fL RDW Coeff of Ruddy 16.6 H (11.5-14.5) % Plt Count 304 (130-400) K/uL MPV 8.4 (7.4-10.4) fL Immature Gran % (Auto) 0.1 % Neut % (Auto) 65.1 % Lymph % (Auto) 24.3 % [place] % (Auto) 8.7 % Eos % (Auto) 1.7 % Baso % (Auto) 0.1 % Neut # (Auto) 4.59 (1.4-6.5) K/uL Lymph # (Auto) 1.71 (1.2-3.4) K/uL [place] # (Auto) 0.61 H (0.11-0.59) K/uL Eos # (Auto) 0.12 (0-0.5) K/uL Baso # (Auto) 0.01 (0-0.2) K/uL Immature Gran # (Auto) 0.01 (0.00-0.02) K/uL Polychromasia 1+ Ovalocytes 1+ PT 10.3 (9.0-12.0) Seconds INR 1.0 (0.9-1.1) APTT 20.4 L (21.0-31.0) Seconds PTT Ratio 0.8 Sodium 139 (136-145) mmol/L Potassium 4.4 (3.5-5.1) mmol/L Chloride 110 H (98-107) mmol/L Carbon Dioxide 25 (21-32) mmol/L Anion Gap 4.0 (3-11) BUN 42 H (7-18) mg/dl Creatinine 1.17 (0.6-1.2) mg/dl Est Cr Clr Drug Dosing Not Reportable Est GFR ( Amer) 53.9 ml/min Est GFR (Non-Af Amer) 46.5 ml/min BUN/Creatinine Ratio 36.1 H (10-20) Glucose 90 (70-99) mg/dl Lactate (0.4-2.0) mmol/L Calcium 8.4 L (8.5-10.1) mg/dl Magnesium 2.5 H (1.8-2.4) mg/dl Total Bilirubin 0.3 (0.2-1) mg/dl AST 17 (15-37) U/L ALT 16 (12-78) U/L Alkaline Phosphatase 57 (45-117) U/L Total Creatine Kinase 144 (26-192) U/L CK-MB (CK-2) 2.1 (0.5-3.6) ng/ml CK/CKMB % Calc 1.5 (0-3.0) Troponin I < 0.015 (0-0.045) ng/ml Total Protein 6.0 L (6.4-8.2) gm/dl Albumin 3.1 L (3.4-5.0) gm/dl Globulin 2.9 (2.5-4.0) gm/dl Albumin/Globulin Ratio 1.1 (0.9-2) Procalcitonin (0-0.5) ng/ml COVID-19 Eval Order SARS-CoV-2 (PCR) (Negative) Blood Type Antibody Screen Crossmatch 01/24/21 01/24/21 01/24/21 Range/Units 01:10 01:55 01:55 WBC (4.8-10.8) K/uL RBC (4.2-5.4) M/uL Hgb (12.0-16.0) g/dL Hct (37-47) % MCV (80-100) fL MCH (25-34) pg MCHC (32-36) g/dL RDW Std Deviation (36.4-46.3) fL RDW Coeff of Ruddy (11.5-14.5) % Plt Count (130-400) K/uL MPV (7.4-10.4) fL Immature Gran % (Auto) % Neut % (Auto) % Lymph % (Auto) % [place] % (Auto) % Eos % (Auto) % Baso % (Auto) % Neut # (Auto) (1.4-6.5) K/uL Lymph # (Auto) (1.2-3.4) K/uL [place] # (Auto) (0.11-0.59) K/uL Eos # (Auto) (0-0.5) K/uL Baso # (Auto) (0-0.2) K/uL Immature Gran # (Auto) (0.00-0.02) K/uL Polychromasia Ovalocytes PT (9.0-12.0) Seconds INR (0.9-1.1) APTT (21.0-31.0) Seconds PTT Ratio Sodium (136-145) mmol/L Potassium (3.5-5.1) mmol/L Chloride (98-107) mmol/L Carbon Dioxide (21-32) mmol/L Anion Gap (3-11) BUN (7-18) mg/dl Creatinine (0.6-1.2) mg/dl Est Cr Clr Drug Dosing Est GFR ( Amer) ml/min Est GFR (Non-Af Amer) ml/min BUN/Creatinine Ratio (10-20) Glucose (70-99) mg/dl Lactate (0.4-2.0) mmol/L Calcium (8.5-10.1) mg/dl Magnesium (1.8-2.4) mg/dl Total Bilirubin (0.2-1) mg/dl AST (15-37) U/L ALT (12-78) U/L Alkaline Phosphatase (45-117) U/L Total Creatine Kinase (26-192) U/L CK-MB (CK-2) (0.5-3.6) ng/ml CK/CKMB % Calc (0-3.0) Troponin I (0-0.045) ng/ml Total Protein (6.4-8.2) gm/dl Albumin (3.4-5.0) gm/dl Globulin (2.5-4.0) gm/dl Albumin/Globulin Ratio (0.9-2) Procalcitonin < 0.05 (0-0.5) ng/ml COVID-19 Eval Order Covid19 at [facility] SARS-CoV-2 (PCR) NEGATIVE (Negative) Blood Type Antibody Screen Crossmatch 01/24/21 01/24/21 Range/Units 01:56 02:33 WBC (4.8-10.8) K/uL RBC (4.2-5.4) M/uL Hgb (12.0-16.0) g/dL Hct (37-47) % MCV (80-100) fL MCH (25-34) pg MCHC (32-36) g/dL RDW Std Deviation (36.4-46.3) fL RDW Coeff of Ruddy (11.5-14.5) % Plt Count (130-400) K/uL MPV (7.4-10.4) fL Immature Gran % (Auto) % Neut % (Auto) % Lymph % (Auto) % [place] % (Auto) % Eos % (Auto) % Baso % (Auto) % Neut # (Auto) (1.4-6.5) K/uL Lymph # (Auto) (1.2-3.4) K/uL [place] # (Auto) (0.11-0.59) K/uL Eos # (Auto) (0-0.5) K/uL Baso # (Auto) (0-0.2) K/uL Immature Gran # (Auto) (0.00-0.02) K/uL Polychromasia Ovalocytes PT (9.0-12.0) Seconds INR (0.9-1.1) APTT (21.0-31.0) Seconds PTT Ratio Sodium (136-145) mmol/L Potassium (3.5-5.1) mmol/L Chloride (98-107) mmol/L Carbon Dioxide (21-32) mmol/L Anion Gap (3-11) BUN (7-18) mg/dl Creatinine (0.6-1.2) mg/dl Est Cr Clr Drug Dosing Est GFR ( Amer) ml/min Est GFR (Non-Af Amer) ml/min BUN/Creatinine Ratio (10-20) Glucose (70-99) mg/dl Lactate 0.7 (0.4-2.0) mmol/L Calcium (8.5-10.1) mg/dl Magnesium (1.8-2.4) mg/dl Total Bilirubin (0.2-1) mg/dl AST (15-37) U/L ALT (12-78) U/L Alkaline Phosphatase (45-117) U/L Total Creatine Kinase (26-192) U/L CK-MB (CK-2) (0.5-3.6) ng/ml CK/CKMB % Calc (0-3.0) Troponin I (0-0.045) ng/ml Total Protein (6.4-8.2) gm/dl Albumin (3.4-5.0) gm/dl Globulin (2.5-4.0) gm/dl Albumin/Globulin Ratio (0.9-2) Procalcitonin (0-0.5) ng/ml COVID-19 Eval Order SARS-CoV-2 (PCR) (Negative) Blood Type O Positive Antibody Screen NEGATIVE Crossmatch See Detail Administered Medications Pantoprazole Sodium 40 mg/ (Dextrose) 100 mls @ 20 mls/hr IV Q5H [facility] Stop: 02/23/21 02:15 Last Admin: 01/24/21 03:04 Dose: 8 mg/hr, 20 mls/hr Documented by: Silvina Discontinued Medications Acetaminophen (Ofirmev) 1,000 mg in 100 mls @ 400 mls/hr IV NOW STA Stop: 01/24/21 01:45 Last Infusion: 01/24/21 02:51 Dose: 0 mls/hr Documented by: Silvina Admin: 01/24/21 02:35 Dose: 400 mls/hr Documented by: Silvina Pantoprazole Sodium (Protonix Bolus/Drip) 0 mls @ 1 mls/hr IV ONE STA Stop: 01/24/21 02:02 Last Admin: 01/24/21 02:56 Dose: Not Given Documented by: [id number] Pantoprazole Sodium 80 mg/ (Dextrose) 120 mls @ 400 mls/hr IV NOW ONE Stop: 01/24/21 02:18 Last Infusion: 01/24/21 02:56 Dose: 0 mls/hr Documented by: [id number] Admin: 01/24/21 02:37 Dose: 400 mls/hr Documented by: [id number] Ceftriaxone Sodium (Rocephin) 2,000 mg in 70 mls @ 140 mls/hr IV NOW STA Stop: 01/24/21 02:36 Last Admin: 01/24/21 02:52 Dose: 140 mls/hr Documented by: [id number] Levalbuterol HCl (Levalbuterol Hcl 1.25 Mg/3 Ml Neb) 1.25 mg NEB NOW STA Stop: 01/24/21 01:32 Last Admin: 01/24/21 02:40 Dose: 1.25 mg Documented by: [id number] Discharge Plan Visit Data Chief Complaint: Cough Stated Complaint: cough/altered mental status ED Provider: Leo Goldsmith Discharge Problem: Anemia, GI bleed Forms Stand Alone Forms: My [facility] Prescriptions Prescriptions: No Action atorvastatin 40 mg tablet 40 mg PO QAM RF: 0 clopidogrel 75 mg tablet 75 mg PO QAM RF: 0 levothyroxine 50 mcg tablet 50 mcg PO QAM RF: 0 lisinopril 10 mg tablet 10 mg PO QAM RF: 0 omega 5-zwf-osm-fish oil [Fish Oil] 1,000 mg (120 mg-180 mg) Capsule 1 cap PO QAM RF: 0 calcium carbonate-vitamin D3 [Os-Tobias 500 + D3] 500mg (1,250mg) -600 unit Tablet 1 tab PO QAM RF: 0 multivitamin Tablet 1 tab PO DAILY RF: 0 acetaminophen [Tylenol] 325 mg Tablet 325 mg PO QID PRN (Reason: Pain) RF: 0 aspirin [Baby Aspirin] 81 mg Tablet,Chewable 81 mg PO DAILY RF: 0 albuterol sulfate 90 mcg/actuation Hfa Aerosol Inhaler 2 inh INHALATION Q4 PRN (Reason: Shortness Of Breath Or Wheezing) RF: 0 docusate sodium 100 mg Tablet 100 mg PO BID RF: 0 loratadine [Claritin] 10 mg Tablet 10 mg PO DAILY RF: 0 simethicone 80 mg Tablet 80 mg PO Q6 PRN (Reason: bloating) RF: 0 Discharge Problem: Anemia Qualifiers: Anemia type: unspecified type Qualified Code(s): D64.9 - Anemia, unspecified GI bleed Qualifiers: GI bleed type/associated pathology: unspecified gastrointestinal hemorrhage type Qualified Code(s): K92.2 - Gastrointestinal hemorrhage, unspecified
[2021-01-24 01:51] LABS: Hematocrit (blood only) 18.1 % (37-47); Hemoglobin 5.8 g/dL (12.0-16.0); Mean Corpuscular Hemoglobin 30.5 pg (25-34); Mean Corpuscular Volume 95.3 fL (80-100); Mean Platelet Volume 8.4 fL (7.4-10.4); Platelet Count 304 K/uL (130-400); RDW Coefficient of Variation 16.6 % (11.5-14.5); RDW Standard Deviation 56.9 fL (36.4-46.3); White Blood Count 7.05 K/uL (4.8-10.8)
[2021-01-24] MEDS ORDERED: SODIUM CHLORIDE 0.9% 250 ML IV PRN ×2 (01:52→05:07)
[2021-01-24 02:00] LABS: Partial Thromboplastin Ratio 0.8; Partial Thromboplastin Time 20.4 Seconds (21.0-31.0); Prothrombin Time 10.3 Seconds (9.0-12.0)
[2021-01-24 02:01] LABS: Alanine Aminotransferase 16 U/L (12-78); Albumin Level 3.1 gm/dl (3.4-5.0); Aspartate Aminotransferase 17 U/L (15-37); BUN Creatinine Ratio 36.1 (10-20); Blood Urea Nitrogen 42 mg/dl (7-18); Calcium 8.4 mg/dl (8.5-10.1); Carbon Dioxide 25 mmol/L (21-32); Chloride 110 mmol/L (98-107); Est GFR (African American) 53.9 ml/min; Est GFR (Non-African American) 46.5 ml/min; Glucose 90 mg/dl (70-99); Magnesium 2.5 mg/dl (1.8-2.4); Potassium 4.4 mmol/L (3.5-5.1); Sodium 139 mmol/L (136-145)
[2021-01-24] MEDS ORDERED: PANTOPRAZOLE BOLUS/DRIP 1 EA IV STA (02:01)
[2021-01-24] MEDS ORDERED: PANTOprazole 80 MG in DEXTROSE 5% 100 ML IV ONE (02:01)
[2021-01-24 02:03] LABS: Basophils # (auto) 0.01 K/uL (0-0.2); Basophils % (auto) 0.1 %; Eosinophils # (auto) 0.12 K/uL (0-0.5); Eosinophils % (auto) 1.7 %; Immature Granulocytes # (auto) 0.01 K/uL (0.00-0.02); Immature Granulocytes % (auto) 0.1 %; Lymphocytes # (auto) 1.71 K/uL (1.2-3.4); Lymphocytes % (auto) 24.3 %; Monocytes # (auto) 0.61 K/uL (0.11-0.59); Monocytes % (auto) 8.7 %; Neutrophils # (auto) 4.59 K/uL (1.4-6.5); Neutrophils % (auto) 65.1 %; Ovalocytes 1+; Polychromasia 1+
[2021-01-24 02:06] LABS: Albumin Globulin Ratio 1.1 (0.9-2); Alkaline Phosphatase 57 U/L (45-117); Bilirubin,Total 0.3 mg/dl (0.2-1); Creatine Kinase 144 U/L (26-192); Creatine Kinase MB 2.1 ng/ml (0.5-3.6); Globulin 2.9 gm/dl (2.5-4.0); Troponin I < 0.015 ng/ml (0-0.045)
[2021-01-24] MEDS ORDERED: cefTRIAXone SODIUM 2,000 MG/70 ML BAG IV STA (02:07)
[2021-01-24] MEDS: PANTOprazole 40 MG in DEXTROSE 5% 100 ML IV SCH ×5 (03:04→21:22)
[2021-01-24] MEDS ORDERED: NITROGLYCERIN SL 0.4 MG/TAB TAB SL PRN (05:07)
[2021-01-24] MEDS ORDERED: ACETAMINOPHEN 325 MG TAB PO PRN (05:07)
[2021-01-24] MEDS ORDERED: ALBUTEROL HFA 8 GM INHALER INH PRN (05:07)
[2021-01-24] MEDS ORDERED: ONDANSETRON INJ 2 MG/ML 2 ML VIAL IV PRN (05:07)
[2021-01-24] MEDS ORDERED: PANTOprazole 40 MG in DEXTROSE 5% 100 ML IV SCH (05:07)
[2021-01-24] MEDS ORDERED: SIMETHICONE 80 MG CHEW PO PRN (05:19)
[2021-01-24] MEDS ORDERED: FUROSEMIDE 40 MG/4 ML VIAL IV ONE (06:00)
--- NOTE | 2021-01-24 07:33 | CT Scan Report ---
CT OF THE HEAD WITHOUT CONTRAST CLINICAL HISTORY: Altered mental status. COMPARISON STUDY: Head CT April 2020. CT DOSE: 2087.72 mGy.cm TECHNIQUE: Helical axial images of the head were obtained without IV contrast. Automated exposure con trol was utilized for the study. A dose lowering technique was utilized adhering to the principles o f ALARA. FINDINGS: No acute intracranial hemorrhage, midline shift or mass effect is present. The ventricular system is stable. Basilar cisterns are patent. There are no extra-axial collections. A 1.1 cm extra a xial hyperdense lesion along the left aspect of the anterior falx is similar to prior exam. This repr esents a meningioma. White matter hypodensity suggests small vessel disease. There are no findings to suggest acute dural sinus thrombosis or acute territorial infarct. An old left parietal infarct is a gain noted. The appearance of the brain is unchanged. Postoperative findings within the sinuses are n oted. There is mucosal thickening of the right maxillary sinus. Small amount of fluid within left mas toid air cells is unchanged. Calvarial lucencies are unchanged. IMPRESSION: No acute intracranial findings. No significant change in appearance of the brain. ACT 112: Negative or not required by law. Electronically signed by: Ric Mancera M.D. 01/24/2021 7:32 AM
--- NOTE | 2021-01-24 07:35 | XRay Report ---
XR chest 1V portable CLINICAL HISTORY: SEPSIS COMPARISON STUDY: Chest radiograph and chest CT May 01, 2020. FINDINGS: Cardiomegaly is unchanged. There is no pneumothorax or pleural effusion. There is no eviden ce for pulmonary edema. Mild bibasilar opacities are present. IMPRESSION: Mild bibasilar opacities which could reflect an infectious process or atelectasis. Radio graphic follow up is recommended. ACT 112: Negative or not required by law. Electronically signed by: Ric Mancera M.D. 01/24/2021 7:34 AM
--- NOTE | 2021-01-24 07:46 | CT Scan Report ---
CT OF THE CHEST WITHOUT IV CONTRAST CLINICAL HISTORY: Cough. COMPARISON STUDY: Chest CT May 01, 2020. TECHNIQUE: Axial images of the chest were obtained without IV contrast. Images were reviewed in the axial, sagittal, and coronal planes. IV contrast was not administered for this examination. Automat ed exposure control was utilized for the study. A dose lowering technique was utilized adhering to t he principles of ALARA. FINDINGS: Prominent AP window lymph node is unchanged. There are calcified mediastinal and bilateral hilar lymph nodes. Note is made of mild cardiomegaly with a trace pericardial effusion. Lungs are link boptimally assessed due to respiratory motion. There is no pneumothorax. Trace left pleural effusion is noted. Bronchial wall thickening is noted, most evident within the right lower lobe. Scattered codie e-in-bud nodules are similar to chest CT of May 01, 2020. Note is made of a 3.8 x 2 cm elliptica l hypodense focus within the right major fissure. This represents fissural fluid. A 7 mm right upper lobe nodule on image 92 of 281 is unchanged since chest CT of September 08, 2011. This is benign. There are secretions within the trachea. There are also mild secretions within the proximal left mainstem bronchus. No acute fracture or suspicious lesion is identified within visualized skeletal structures. Upper abdomen is unremarkable on this unenhanced exam. IMPRESSION: 1. No significant change in scattered tree-in-bud nodules within the lungs which suggest a chronic in fectious process. 2. Diffuse bronchial wall thickening. Secretions within the airways, as above. 3. 3.8 x 2 cm elliptical hypodense focus within the right major fissure consistent with fissural flui d. 4. Mild cardiomegaly. Trace pericardial effusion. ACT 112: Negative or not required by law. Electronically signed by: Ric Mancera M.D. 01/24/2021 7:44 AM
[2021-01-24] MEDS: ATORVASTATIN 40 MG TAB PO SCH (08:09)
[2021-01-24] MEDS: LEVOTHYROXINE SODIUM 50 MCG TABLET PO SCH (08:09)
[2021-01-24] MEDS: lisinopril 10 MG TAB PO SCH (08:10)
[2021-01-24] MEDS: LORATADINE 10 MG TAB PO SCH (08:10)
--- NOTE | 2021-01-24 08:42 | Hospitalist Progress Note ---
Date of Service January 24, 2021 Assessment & Plan (1) Anemia: (2) GI bleed: (3) Acute bronchiolitis: A 70-year-old female who presented with worsening confusion. 1. Worsening confusion: As per the Epic notes on 12/12/2020, she seems to be getting more confused and falls at home. Family was looking for assisted living. As per , she got more confused last two days. CT scan of the head was done, preliminary report unremarkable. The patient is currently oriented to name only. No fevers or leukocytosis. We will monitor in the tele floor and neuro consult. Can consider MRI once hb stabilizes.EEG as per neurology Patient seen by neurology, MRI brain ordered also blood work, folic acid level, RPR, TSH, vitamin B12 level 2. Gastrointestinal bleed: Acute blood loss anemia. Hemoccult was positive in the ER with black stools. Hemoglobin is 5.8. Seems hemoglobin was 11.5 in April 2020. As per outpatient records, in May 2020, it was 9.6. Transfused 2 units of PRBCs, current Hgb 9.0. We will follow H and H q. 6 hours. Started on Protonix drip, will cont. IV fluids GI consulted -plan for EGD tomorrow (01/25). 3. Ongoing cough: It is going on for months now. Chest x-ray looks okay. CT chest preliminary report bronchiolitis.Started on Rocephin and Doxycycline, will cont. Obtain sputum cultx Guaifenesin, flutter valve, incentive spirometry 4. History of cerebrovascular accident, - on aspirin and Plavix and statin, which we will hold for now. 5. History of hypertension: -on lisinopril. Will monitor the blood pressure. 6. History of hypothyroidism: On Synthroid. 7. 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 8. TRISH on Chronic kidney disease stage III: Creatinine is 1.1 on admission. Cr this AM 1.3 (several hrs later) We will cont. to monitor renal function. DVT prophylaxis: We will keep her on SCDs for now. Disposition: Closely monitor in the tele floor. Code status: Full code for now, But husbands wants to be called.. Social service to help with discharge planning. Admission and Anticipated Discharge Date Admission Date: January 24, 2021 Subjective Patient admitted this morning for confusion and anemia, GI bleed Currently she is resting comfortably in bed, in no acute distress, she is able to tell me her name, however she is not sure about what year it is or what brought her to the hospital She seems to be in agreement that she is in the hospital Currently she has no complaints, denies fevers chills, abdominal pain, nausea, vomiting She continues to cough throughout the interview Currently on IV PPI, and also getting blood transfusion Review of Systems Review of Systems: Patient currently has no complaints, however she does appear confused Physical Exam Physical Exam: GENERAL: WD/WN, confused, not in acute distress. HEENT: NC/AT, Pupils equal, round, and reactive to light. Oral mucosa moist. NECK: No JVD. No neck masses. CARDIOVASCULAR: S1, S2 heard, regular rate and rhythm, no murmur, no gallop. RESPIRATORY SYSTEM: Normal AP diameter. No accessory muscle use. No wheezing, no crackles. ABDOMEN: Soft, bowel sounds present, nontender. No distention. NEURO : Alert and awake, oriented to name only. Hard of hearing. Seems to be obeying simple commands. Moves extremities. EXTREMITIES: No edema, no erythema. Results & Data Results & Data ([facility]) Vital Signs (Past 12 Hours) Vital Signs Temp Pulse Pulse Resp BP BP Pulse Ox 01/24/21 07:41 102 H 20 125/62 96 01/24/21 07:11 87 16 119/60 92 01/24/21 06:56 94 H 16 116/59 L 95 01/24/21 06:38 36.7 C 87 26 H 112/82 95 01/24/21 06:35 37.0 C 82 23 112/82 93 01/24/21 05:05 36.7 C 78 22 108/49 L 99 01/24/21 05:00 36.7 C 80 20 119/60 95 01/24/21 04:35 37.8 C H 86 20 100/52 L 100 01/24/21 04:20 36.3 C L 90 16 110/56 L 99 01/24/21 04:02 36.8 C 87 16 106/57 L 98 01/24/21 04:00 16 99 01/24/21 03:00 103 H 90 16 124/75 112/63 96 01/24/21 02:44 89 19 125/61 100 01/24/21 02:40 92 H 24 97 01/24/21 02:30 91 H 18 01/24/21 02:15 86 23 01/24/21 02:00 85 16 117/63 96 01/24/21 01:45 76 18 97 01/24/21 01:37 36.3 C L 88 12 121/60 97 Laboratory Results 01/24/21 01/24/21 01/24/21 Range/Units 02:33 01:56 01:55 WBC (4.8-10.8) K/uL RBC (4.2-5.4) M/uL Hgb (12.0-16.0) g/dL Hct (37-47) % MCV (80-100) fL MCH (25-34) pg MCHC (32-36) g/dL RDW Std Deviation (36.4-46.3) fL RDW Coeff of Ruddy (11.5-14.5) % Plt Count (130-400) K/uL MPV (7.4-10.4) fL Immature Gran % (Auto) % Neut % (Auto) % Lymph % (Auto) % [place] % (Auto) % Eos % (Auto) % Baso % (Auto) % Neut # (Auto) (1.4-6.5) K/uL Lymph # (Auto) (1.2-3.4) K/uL [place] # (Auto) (0.11-0.59) K/uL Eos # (Auto) (0-0.5) K/uL Baso # (Auto) (0-0.2) K/uL Immature Gran # (Auto) (0.00-0.02) K/uL Polychromasia Ovalocytes PT (9.0-12.0) Seconds INR (0.9-1.1) APTT (21.0-31.0) Seconds PTT Ratio Sodium (136-145) mmol/L Potassium (3.5-5.1) mmol/L Chloride (98-107) mmol/L Carbon Dioxide (21-32) mmol/L Anion Gap (3-11) BUN (7-18) mg/dl Creatinine (0.6-1.2) mg/dl Est Cr Clr Drug Dosing Est GFR ( Amer) ml/min Est GFR (Non-Af Amer) ml/min BUN/Creatinine Ratio (10-20) Glucose (70-99) mg/dl Lactate 0.7 (0.4-2.0) mmol/L Calcium (8.5-10.1) mg/dl Magnesium (1.8-2.4) mg/dl Total Bilirubin (0.2-1) mg/dl AST (15-37) U/L ALT (12-78) U/L Alkaline Phosphatase (45-117) U/L Total Creatine Kinase (26-192) U/L CK-MB (CK-2) (0.5-3.6) ng/ml CK/CKMB % Calc (0-3.0) Troponin I (0-0.045) ng/ml Total Protein (6.4-8.2) gm/dl Albumin (3.4-5.0) gm/dl Globulin (2.5-4.0) gm/dl Albumin/Globulin Ratio (0.9-2) Procalcitonin (0-0.5) ng/ml COVID-19 Eval Order SARS-CoV-2 (PCR) NEGATIVE (Negative) Blood Type O Positive Antibody Screen NEGATIVE Crossmatch See Detail 01/24/21 01/24/21 01/24/21 Range/Units 01:55 01:10 01:10 WBC (4.8-10.8) K/uL RBC (4.2-5.4) M/uL Hgb (12.0-16.0) g/dL Hct (37-47) % MCV (80-100) fL MCH (25-34) pg MCHC (32-36) g/dL RDW Std Deviation (36.4-46.3) fL RDW Coeff of Ruddy (11.5-14.5) % Plt Count (130-400) K/uL MPV (7.4-10.4) fL Immature Gran % (Auto) % Neut % (Auto) % Lymph % (Auto) % [place] % (Auto) % Eos % (Auto) % Baso % (Auto) % Neut # (Auto) (1.4-6.5) K/uL Lymph # (Auto) (1.2-3.4) K/uL [place] # (Auto) (0.11-0.59) K/uL Eos # (Auto) (0-0.5) K/uL Baso # (Auto) (0-0.2) K/uL Immature Gran # (Auto) (0.00-0.02) K/uL Polychromasia Ovalocytes PT (9.0-12.0) Seconds INR (0.9-1.1) APTT (21.0-31.0) Seconds PTT Ratio Sodium 139 (136-145) mmol/L Potassium 4.4 (3.5-5.1) mmol/L Chloride 110 H (98-107) mmol/L Carbon Dioxide 25 (21-32) mmol/L Anion Gap 4.0 (3-11) BUN 42 H (7-18) mg/dl Creatinine 1.17 (0.6-1.2) mg/dl Est Cr Clr Drug Dosing Not Reportable Est GFR ( Amer) 53.9 ml/min Est GFR (Non-Af Amer) 46.5 ml/min BUN/Creatinine Ratio 36.1 H (10-20) Glucose 90 (70-99) mg/dl Lactate (0.4-2.0) mmol/L Calcium 8.4 L (8.5-10.1) mg/dl Magnesium 2.5 H (1.8-2.4) mg/dl Total Bilirubin 0.3 (0.2-1) mg/dl AST 17 (15-37) U/L ALT 16 (12-78) U/L Alkaline Phosphatase 57 (45-117) U/L Total Creatine Kinase 144 (26-192) U/L CK-MB (CK-2) 2.1 (0.5-3.6) ng/ml CK/CKMB % Calc 1.5 (0-3.0) Troponin I < 0.015 (0-0.045) ng/ml Total Protein 6.0 L (6.4-8.2) gm/dl Albumin 3.1 L (3.4-5.0) gm/dl Globulin 2.9 (2.5-4.0) gm/dl Albumin/Globulin Ratio 1.1 (0.9-2) Procalcitonin < 0.05 (0-0.5) ng/ml COVID-19 Eval Order Covid19 at [facility] SARS-CoV-2 (PCR) (Negative) Blood Type Antibody Screen Crossmatch 01/24/21 01/24/21 Range/Units 01:10 01:10 WBC 7.05 (4.8-10.8) K/uL RBC 1.90 L (4.2-5.4) M/uL Hgb 5.8 L* (12.0-16.0) g/dL Hct 18.1 L* (37-47) % MCV 95.3 (80-100) fL MCH 30.5 (25-34) pg MCHC 32.0 (32-36) g/dL RDW Std Deviation 56.9 H (36.4-46.3) fL RDW Coeff of Ruddy 16.6 H (11.5-14.5) % Plt Count 304 (130-400) K/uL MPV 8.4 (7.4-10.4) fL Immature Gran % (Auto) 0.1 % Neut % (Auto) 65.1 % Lymph % (Auto) 24.3 % [place] % (Auto) 8.7 % Eos % (Auto) 1.7 % Baso % (Auto) 0.1 % Neut # (Auto) 4.59 (1.4-6.5) K/uL Lymph # (Auto) 1.71 (1.2-3.4) K/uL [place] # (Auto) 0.61 H (0.11-0.59) K/uL Eos # (Auto) 0.12 (0-0.5) K/uL Baso # (Auto) 0.01 (0-0.2) K/uL Immature Gran # (Auto) 0.01 (0.00-0.02) K/uL Polychromasia 1+ Ovalocytes 1+ PT 10.3 (9.0-12.0) Seconds INR 1.0 (0.9-1.1) APTT 20.4 L (21.0-31.0) Seconds PTT Ratio 0.8 Sodium (136-145) mmol/L Potassium (3.5-5.1) mmol/L Chloride (98-107) mmol/L Carbon Dioxide (21-32) mmol/L Anion Gap (3-11) BUN (7-18) mg/dl Creatinine (0.6-1.2) mg/dl Est Cr Clr Drug Dosing Est GFR ( Amer) ml/min Est GFR (Non-Af Amer) ml/min BUN/Creatinine Ratio (10-20) Glucose (70-99) mg/dl Lactate (0.4-2.0) mmol/L Calcium (8.5-10.1) mg/dl Magnesium (1.8-2.4) mg/dl Total Bilirubin (0.2-1) mg/dl AST (15-37) U/L ALT (12-78) U/L Alkaline Phosphatase (45-117) U/L Total Creatine Kinase (26-192) U/L CK-MB (CK-2) (0.5-3.6) ng/ml CK/CKMB % Calc (0-3.0) Troponin I (0-0.045) ng/ml Total Protein (6.4-8.2) gm/dl Albumin (3.4-5.0) gm/dl Globulin (2.5-4.0) gm/dl Albumin/Globulin Ratio (0.9-2) Procalcitonin (0-0.5) ng/ml COVID-19 Eval Order SARS-CoV-2 (PCR) (Negative) Blood Type Antibody Screen Crossmatch Medications Administered Current Inpatient Medications Acetaminophen (Acetaminophen 325 Mg Tab) 650 mg PO Q4H PRN PRN Reason: Pain or Fever Stop: 02/23/21 05:06 Albuterol (Albuterol Hfa 8 Gm Inhaler) 2 puffs INH Q4 PRN PRN Reason: Shortness Of Breath Or Wheezing Stop: 02/23/21 05:06 Atorvastatin Calcium (Atorvastatin 40 Mg Tab) 40 mg PO QAM MORENITA Stop: 02/23/21 08:59 Last Admin: 01/24/21 08:09 Dose: 40 mg Documented by: Guaifenesin (Guaifenesin 600 Mg Tabcr) 600 mg PO Q12 MORENITA Stop: 02/23/21 08:59 Sodium Chloride (Nss) 250 mls @ 15 mls/hr IV .[id number] PRN PRN Reason: For Transfusion Stop: 01/24/21 11:52 Pantoprazole Sodium 40 mg/ (Dextrose) 100 mls @ 20 mls/hr IV Q5H MORENITA Stop: 02/23/21 02:15 Last Admin: 01/24/21 03:04 Dose: 8 mg/hr, 20 mls/hr Documented by: Ceftriaxone Sodium 1,000 mg/ (Dextrose) 50 mls @ 100 mls/hr IV Q24H [facility]; Protocol Stop: 02/01/21 02:59 Doxycycline Hyclate 100 mg/ (Dextrose) 110 mls @ 50 mls/hr IV Q12H [facility] Stop: 01/31/21 06:59 Levothyroxine Sodium (Levothyroxine Sodium 50 Mcg Tablet) 50 mcg PO DAILYBB [facility] Stop: 02/23/21 06:29 Last Admin: 01/24/21 08:09 Dose: 50 mcg Documented by: Lisinopril (Lisinopril 10 Mg Tab) 10 mg PO QAM [facility] Stop: 02/23/21 08:59 Last Admin: 01/24/21 08:10 Dose: 10 mg Documented by: Loratadine (Loratadine 10 Mg Tab) 10 mg PO DAILY [facility] Stop: 02/23/21 08:59 Last Admin: 01/24/21 08:10 Dose: 10 mg Documented by: Nitroglycerin (Nitroglycerin Sl 0.4 Mg/Tab Tab) 0.4 mg SL UD PRN PRN Reason: Chest Pain Stop: 02/23/21 05:06 Ondansetron HCl (Ondansetron Inj 2 Mg/Ml 2 Ml Vial) 4 mg IV Q6H PRN PRN Reason: Nausea Stop: 02/23/21 05:06 Simethicone (Simethicone 80 Mg Chew) 80 mg PO Q6 PRN PRN Reason: bloating Stop: 02/23/21 05:18 (1) GI bleed GI bleed type/associated pathology: unspecified gastrointestinal hemorrhage type Qualified Code(s): K92.2 - Gastrointestinal hemorrhage, unspecified (2) Anemia Anemia type: unspecified type Qualified Code(s): D64.9 - Anemia, unspecified
--- NOTE | 2021-01-24 08:42 | History and Physical Report ---
DATE OF ADMISSION: 01/24/2021 CHIEF COMPLAINT: Confusion. 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 As per the [facility] notes, she saw PCP on 12/12/2020. At that time, she had a chronic cough and she was falling frequently, worsening memory. She did not recognize people as the EPIC notes they were looking for assisted living .As per last 2 days the confusion got worse and he sent her to the hospital. He states that she did not complain of any pain, did not notice any blood in the stools, is having a lot of cough. No fevers. Eating okay, swallowing okay. No nausea, no vomiting. The patient in the ER is somewhat drowsy but says she hurts, could tell her name, could not get much history from the patient. Hemodynamically stable. Her labs showed hemoglobin of 5.8 and her Hemoccult was positive. SARS-CoV-2 PCR negative. As per the [facility], she had COVID vaccine. Initially was not answering, so called the son to get blood consent. ALLERGIES: LATEX. PAST MEDICAL HISTORY: As mentioned above. PAST SURGICAL HISTORY: Bone marrow, stem cell transplant, colonoscopy, exploration of maxillary sinus, exploration of tear ducts, laparoscopic total hysterectomy with removal of tubes, Pap screen, bilateral total hip replacement. MEDICATIONS: Loratadine 10 mg p.o. daily, Tylenol 325 mg p.o. q.i.d. p.r.n., albuterol 2 inhalation every 4 hours p.r.n., aspirin 81 mg p.o. daily, atorvastatin 40 mg p.o. a.m., calcium carbonate 1 tablet p.o. a.m., Plavix 75 mg p.o. a.m., Colace 100 mg p.o. b.i.d., levothyroxine 150 mcg p.o. a.m., lisinopril 10 mg p.o. a.m., multivitamin 1 tablet p.o. daily, [place] 3 fish oil 1 capsule daily, simethicone 80 mg p.o. q. 6 hours p.r.n. FAMILY HISTORY: Significant for mother at age of 84, father at age of 92, sister has alcoholic liver cirrhosis. SOCIAL HISTORY: Currently , lives with her . No smoking, no alcohol, no drug use. REVIEW OF SYSTEMS: Could not be obtained from the patient at this time. PHYSICAL EXAMINATION: GENERAL: The patient is grossly confused, does not seem to be in acute distress. VITAL SIGNS: Temperature 36.3, pulse 90, respiratory rate 16, blood pressure 110/56, oxygen 99% on 2 liters. HEENT: Pupils equal, round, and reactive to light. Oral mucosa moist. NECK: No JVD. No neck masses. CARDIOVASCULAR: S1, S2 heard, regular rate and rhythm, no murmur, no gallop. RESPIRATORY SYSTEM: Normal AP diameter. No accessory muscle use. No wheezing, no crackles. ABDOMEN: Soft, bowel sounds present, nontender. No distention. CENTRAL NERVOUS SYSTEM: Alert and awake, oriented to name only. Hard of hearing. Seems to be obeying simple commands. Moves extremities. EXTREMITIES: No edema, no erythema. LABORATORY DATA: WBC 7.05, hemoglobin 5.8, hematocrit 18.1, platelets 304. PT 10.3, INR 1, APTT 20.4. Sodium 139, potassium 4.4, chloride 110, bicarbonate 25, BUN 42, creatinine 1.1, serum glucose 90, lactate 0.7, calcium 8.4, magnesium 2.5, total bilirubin 0.3, AST 17, ALT 16, alkaline phosphatase of 57. Total creatinine kinase 144. Procalcitonin less than 0.015. SARS-CoV-2 PCR negative. IMAGING DATA: Chest x-ray, no acute findings. EKG: Normal sinus rhythm with a rate of 95, nonspecific ST changes. CT of the head done, await results. ASSESSMENT AND PLAN: A 70-year-old female who presented with worsening confusion. 1. Worsening confusion: As per the Epic notes on 12/12/2020, she seems to be getting more confused and falls at home. Family was looking for assisted living. As per , she got more confused last two days. CT scan of the head was done, preliminary report unremarkable. The patient is currently oriented to name only. No fevers or leukocytosis. We will monitor in the tele floor and neuro consult. Can consider MRI once hb stabilizes.EEG as per neurology 2. Gastrointestinal bleed: Acute blood loss anemia. Hemoccult was positive in the ER with black stools. Hemoglobin is 5.8. Seems hemoglobin was 11.5 in April 2020. As per outpatient records, in May 2020, it was 9.6. Will transfuse PRBCs. We will follow H and H q. 6 hours. Started on Protonix drip, n.p.o., IV fluids and GI consult. 3. Ongoing cough: It is going on for months now. Chest x-ray looks okay. CT chest preliminary report bronchiolitis.Started on Rocephin and Doxycycline. 4. History of cerebrovascular accident, on aspirin and Plavix and statin, which we will hold for now. 5. History of hypertension: On lisinopril. Will monitor the blood pressure. 6. History of hypothyroidism: On Synthroid. 7. 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 8. Chronic kidney disease stage III: Creatinine is 1.1. We will follow the repeat labs. 9. Deep venous thrombosis prophylaxis: We will keep her on sequential compression devices for now. 10. Disposition: Closely monitor in the tele floor. Code status: Full code for now, But husbands wants to be called.. Social service to help with discharge planning. MALICK
[2021-01-24] MEDS: DOXYCYCLINE HYCLATE 100 MG in DEXTROSE 5% 100 ML IV SCH ×2 (09:05→18:23)
[2021-01-24 09:36] LABS: Appearance Urine Clear (Clear); Bilirubin Urine Negative (Negative); Blood Urine Negative (Negative); Color Urine Yellow; Glucose Urine UA Negative (Negative); Ketones Urine Negative (Negative); Leukocyte Esterase Urine Negative (Negative); Nitrite Urine Negative (Negative); Protein Urine Negative (Negative); Specific Gravity Urine 1.009 (1.000-1.030); Urobilinogen Urine Negative (Negative)
--- NOTE | 2021-01-24 09:44 | Gastrointestinal Consultation ---
Date of Consultation January 24, 2021 Assessment & Plan (1) Anemia: 70 yo female with multiple medical problems and recent progressive decline in mental status and falls admitted with confusion found to have a hgb of 5.8 and melanic stools. Hemodynamically stable. - PPI gtt. - May have sips of clears today. - IVF - Transfuse per primary service - Hold anticoagulants. - Will tentatively plan for EGD tomorrow once she has been resuscitated with blood products. - Discussed wiht primary service. (2) GI bleed: (3) Dementia: (4) History of acute lymphoid leukemia: (5) CKD (chronic kidney disease) stage 3, GFR 30-59 ml/min: (6) Hypothyroidism: (7) Cerebrovascular disease: (8) Hypertension: History of Present Illness Reason for Consultation: melena anemia Attending Physician: Hilario Romero MD History of Present Illness 70 to female with multiple medical problems including h/o CVA on chronic ASA and Plavix, HTN, CKD, h/o ALL in remission, PVD, who has apparently had slowly worsneing confusion and falls at home over the last few months. She presented tp the ER with confusion and was found to have a hgb of 5.8 (baseline appears to be in the 9.5-11 range, though I do not see a recent hgb). Her stools are very dark. Her BUN and creatinine are 42 and 1.2. She was started on a PPI gtt over night and will get transfused today. She is resting comfortably and has been hemodynamically stable. She is confused. Does not know if she has ever had an ulcer or GO bleed. Family is not present. Allergies Allergy/AdvReac Type Severity Reaction Status Date / Time latex Allergy Unknown RASH Verified 01/24/21 01:52 No Known Drug Allergies Allergy Unknown . Verified 01/24/21 01:52 Home Medications Medication Instructions Recorded Confirmed Type atorvastatin 40 mg PO QAM 10/06/18 01/24/21 History calcium carbonate-vitamin D3 1 tab PO QAM 10/06/18 01/24/21 History [Os-Tobias 500 + D3] clopidogrel 75 mg PO QAM 10/06/18 01/24/21 History levothyroxine 50 mcg PO QAM 10/06/18 01/24/21 History lisinopril 10 mg PO QAM 10/06/18 01/24/21 History omega 5-gaw-tua-fish oil [Fish Oil] 1 cap PO QAM 10/06/18 01/24/21 History acetaminophen [Tylenol] 325 mg PO QID PRN 01/24/21 01/24/21 History albuterol sulfate 2 inh INHALATION Q4 PRN 01/24/21 01/24/21 History aspirin [Baby Aspirin] 81 mg PO DAILY 01/24/21 01/24/21 History docusate sodium 100 mg PO BID 01/24/21 01/24/21 History loratadine [Claritin] 10 mg PO DAILY 01/24/21 01/24/21 History multivitamin 1 tab PO DAILY 01/24/21 01/24/21 History simethicone 80 mg PO Q6 PRN 01/24/21 01/24/21 History Patient History Medical History Adnexal mass CT [facility] 05/01/20 - 7.2 x 4.8 cm cystic L adnexal mass Cerebrovascular disease History of stroke and TIA's. 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 History of sinus surgery Status post bilateral hip replacements Family History Other Family history unobtainable due to patient's condition Social History Smoking Status: Unknown if ever smoked Second Hand Exposure: No; Hx Alcohol Use: No Hx Substance Use: No Preferred Language: Danish Communication Ability: Effective Licensed Psychologist Required: No Beliefs That Will Affect Care: None marital status: Current Living Situation: Spouse current occupational status: retired Feels Safe at Home: Declines to Answer Assistive Devices: Walker Assistive Devices Comment: marisa [email or web address] Review of Systems Review of Systems: Unobtainable due to cognitive status Physical Exam Constitutional: WD/WN, vitals as above Eyes: PERRL, conjunctivae normal, anicteric sclerae Neck: trachea midline, no thyromegaly Respiratory: normal respiratory effort, lungs clear to auscultation Cardiovascular: RRR, no murmur, no edema Gastrointestinal (Abdomen): normal bowel sounds, soft, nontender, no hepatosplenomegaly Musculoskeletal: no cyanosis or clubbing, extremities motor strength 5/5 Results & Data ([facility]) Vital Signs (Past 12 Hours) Vital Signs Temp Pulse Pulse Resp BP BP Pulse Ox 01/24/21 08:41 90 18 137/74 93 01/24/21 07:41 102 H 20 125/62 96 01/24/21 07:11 87 16 119/60 92 01/24/21 06:56 94 H 16 116/59 L 95 01/24/21 06:38 36.7 C 87 26 H 112/82 95 01/24/21 06:35 37.0 C 82 23 112/82 93 01/24/21 05:05 36.7 C 78 22 108/49 L 99 01/24/21 05:00 36.7 C 80 20 119/60 95 01/24/21 04:35 37.8 C H 86 20 100/52 L 100 01/24/21 04:20 36.3 C L 90 16 110/56 L 99 01/24/21 04:02 36.8 C 87 16 106/57 L 98 01/24/21 04:00 16 99 01/24/21 03:00 103 H 90 16 124/75 112/63 96 01/24/21 02:44 89 19 125/61 100 01/24/21 02:40 92 H 24 97 01/24/21 02:30 91 H 18 01/24/21 02:15 86 23 01/24/21 02:00 85 16 117/63 96 01/24/21 01:45 76 18 97 01/24/21 01:37 36.3 C L 88 12 121/60 97 (1) Anemia Anemia type: unspecified type Qualified Code(s): D64.9 - Anemia, unspecified (2) GI bleed GI bleed type/associated pathology: unspecified gastrointestinal hemorrhage type Qualified Code(s): K92.2 - Gastrointestinal hemorrhage, unspecified
[2021-01-24] MEDS: guaiFENesin 600 MG TABCR PO SCH ×2 (10:16→21:17)
[2021-01-24 11:49] LABS: Basophils # (auto) 0.01 K/uL (0-0.2); Basophils % (auto) 0.1 %; Eosinophils # (auto) 0.02 K/uL (0-0.5); Eosinophils % (auto) 0.2 %; Hematocrit (blood only) 27.5 % (37-47); Immature Granulocytes # (auto) 0.01 K/uL (0.00-0.02); Immature Granulocytes % (auto) 0.1 %; Lymphocytes # (auto) 0.32 K/uL (1.2-3.4); Lymphocytes % (auto) 2.7 %; Mean Corpuscular Hemoglobin 29.7 pg (25-34); Mean Corpuscular Hgb Conc 32.7 g/dL (32-36); Mean Corpuscular Volume 90.8 fL (80-100); Mean Platelet Volume 8.1 fL (7.4-10.4); Monocytes # (auto) 0.38 K/uL (0.11-0.59); Monocytes % (auto) 3.2 %; Neutrophils # (auto) 11.14 K/uL (1.4-6.5); Neutrophils % (auto) 93.7 %; Platelet Count 237 K/uL (130-400); RDW Coefficient of Variation 17.4 % (11.5-14.5); RDW Standard Deviation 56.6 fL (36.4-46.3); Red Blood Count 3.03 M/uL (4.2-5.4); White Blood Count 11.88 K/uL (4.8-10.8)
[2021-01-24 11:55] LABS: Calcium 8.2 mg/dl (8.5-10.1); Creatinine Clr Calc Pharmacy 31.7 ml/min; Est GFR (African American) 48.8 ml/min; Est GFR (Non-African American) 42.1 ml/min; Magnesium 1.9 mg/dl (1.8-2.4); Potassium 3.8 mmol/L (3.5-5.1)
[2021-01-24 12:06] LABS: Troponin I 0.104 ng/ml (0-0.045)
--- NOTE | 2021-01-24 12:19 | Consultation Report ---
DATE OF CONSULTATION: 01/24/2021 REASON FOR CONSULTATION: Change in mentation. 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 I spoke to the patient's and he indicates that as a baseline from her stroke, she had no residual paralysis and had some minimal word finding difficulty. He has noted difficulty with short-term memory and some word finding difficulty over the last 1-2 years. Generally, she is oriented and does not have hallucinations and participates with activities of daily living. She does housework, but that has been limited as well recently. She has otherwise been well. There have not been any new medications. On this background, he notes for the last several days, she had been increasingly confused, more fatigued, having trouble with concentration. He denies that she had any falls, any facial pain or any unilateral weakness. By report, the patient is having a chronic cough. No fevers. Her weight has been stable. Per the patient, who I believe to be nonreliable, she has no complaints and denies pain. On admission to the Emergency Room, she was found to have a hemoglobin of 5.8, Hemoccult positive and an elevated creatinine from baseline and elevated BUN and creatinine of 42/____. CT of the head noncontrast, which I have reviewed, shows chronic vascular changes, no acute abnormality. A 1.1 cm extraaxial mass consistent with a meningioma. There is an old left parietal infarction. The patient's electrocardiogram showed sinus rhythm, nonspecific ST abnormalities. Lab on admission notable for hemoglobin of 5.8, hematocrit of 18, platelet count of 304. PTT is 20.4. Chemistry profile: BUN 42, creatinine 1.2, calcium 8.4, magnesium 2.5. Urinalysis is negative. Toxicology not performed. COVID-19 negative. PAST MEDICAL HISTORY: As above. PAST SURGICAL HISTORY: Bone marrow stem cell transplant, colonoscopy, exploration of maxillary sinuses, exploration of tear ducts, laparoscopic total hysterectomy with removal of tubes, bilateral total hip. MEDICATIONS: Loratadine, Tylenol, albuterol, aspirin, atorvastatin, calcium carbonate, Plavix, Colace, levothyroxine, lisinopril, multiple vitamin, Hemet-3 fish oil, simethicone. FAMILY HISTORY: Mother at 84. Father at 92. Sister has alcoholic liver cirrhosis. The patient denies that there is any family history of cognitive dysfunction. SOCIAL HISTORY: Nonsmoker, nondrinker. The patient lives with her . She does not drive. REVIEW OF SYSTEMS: Could not be obtained due to the patient's mental status. PHYSICAL EXAMINATION: Current vital signs are 137/74, 86, 18, 36.7, 93%. The patient is awake and alert. She is able to state her name. Her registration is slow. She has difficulty following all but simple commands. She is disoriented to place. There is a paucity of spontaneous language and a paucity of speech. She has significant word finding difficulty. Naming is somewhat inconsistent. She tends to perseverate. She cannot repeat. Her head is normocephalic, atraumatic. Her abdomen is soft and nontender. No calf swelling or tenderness is noted. Her pupils appear to be postsurgical. I could not reliably visualize the optic nerves. Motility via observation appeared normal. There is no facial asymmetry. Speech was more dysphasic than it was dysarthric. No facial droop. While the patient would not follow significant commands to check strength in the upper and lowers, there was no drift in the uppers and she lifted both legs symmetrically. She did not understand the cerebellar function testing. Her reflexes are symmetric and her toes were downgoing. IMPRESSION: This is a patient who sounds as if she has a 1-2 year history of a baseline dementia. Unclear whether that is vascular or Alzheimer dementia, although may favor the latter given that she has had some mild language dysfunction. Laboratories for treatable etiologies should be performed. The patient appears to have perhaps a mild delirium, likely related to multiple metabolic abnormalities, profound anemia, dehydration. There does appear to be some selective language dysfunction, which raises the question of whether or not there may be a new infarct. PLAN: MRI brain if the patient can tolerate. Further vascular workup will depend on the results of the MRI, i.e., if it shows an infarct, we would do a carotid ultrasound, echocardiography. No current clinical evidence of seizures, but we will monitor. The patient also has an asymptomatic parafalcine meningioma. This sounds as if it has been seen radiographically previously and is unchanged. We will follow with you.
[2021-01-24 13:11] LABS: Hemoglobin 8.9 g/dL (12.0-16.0)
[2021-01-24 15:07] LABS: Hemoglobin 9.2 g/dL (12.0-16.0)
--- NOTE | 2021-01-24 15:15 | Electrocardiogram Report ---
Test Reason : Blood Pressure : / mmHG Vent. Rate : 081 BPM Atrial Rate : 082 BPM P-R Int : 000 ms QRS Dur : 080 ms QT Int : 398 ms P-R-T Axes : 000 052 058 degrees QTc Int : 462 ms Poor data quality, interpretation may be adversely affected Normal sinus rhythm Nonspecific ST and T wave abnormality Abnormal ECG When compared with ECG of 01-MAY-2020 09:08, Probably no change repeat with better baseline Confirmed by Corey Vizcaino ([id number]) on 01/24/2021 3:14:48 PM Referred By: REFERRED SELF Confirmed By:Corey Vizcaino
--- NOTE | 2021-01-24 15:16 | Electrocardiogram Report ---
Test Reason : Blood Pressure : / mmHG Vent. Rate : 095 BPM Atrial Rate : 095 BPM P-R Int : 134 ms QRS Dur : 082 ms QT Int : 366 ms P-R-T Axes : 069 050 051 degrees QTc Int : 459 ms Normal sinus rhythm Nonspecific ST abnormality consider inferolateral ischemia Abnormal ECG When compared with ECG of 24-JAN-2021 01:38, (unconfirmed) ST now depressed in Inferior leads Confirmed by Corey Vizcaino ([id number]) on 01/24/2021 3:16:00 PM Referred By: REFERRED SELF Confirmed By:Corey Vizcaino
--- NOTE | 2021-01-24 17:17 | Magnetic Resonance Report ---
MRI OF THE BRAIN WITHOUT CONTRAST CLINICAL HISTORY: change in ms, aphasia COMPARISON STUDY: MRI of the brain September 04, 2017. Head CT performed earlier today. TECHNIQUE: Utilizing a 1.5 Jodi magnet and dedicated coil, multiplanar, multiecho imaging of the bra in was performed without IV contrast. FINDINGS: This exam is mildly compromised by motion artifact. There is a 5 mm hyperintense focus with in the left caudate nucleus on axial diffusion-weighted sequence image 14 of 24. This may be slightly hypointense on the ADC map. This could reflect a small acute to subacute infarct. There is an 8 mm h yperintense focus within the right aspect of the genu of the corpus callosum on axial image 15. This is unlikely to reflect acute infarct. Ventricular system is stable. Basilar cisterns are patent. Ther e are no extra-axial collections. An old 2.5 cm periventricular left parietal lobe infarct is unchang ed. Extensive white matter T2 hyperintense foci suggest small vessel disease. Calvarial heterogeneity is unchanged since MRI of September 04, 2017. No acute intracranial hemorrhage, midline shift or mass e ffect is present. Fluid within the left mastoid air cells is again noted. This was shown on previous MRI. 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 IMPRESSION: 1. 5 mm hyperintense focus within left caudate nucleus on diffusion-weighted sequence. This could ref lect a small acute to subacute infarct. 8 mm hyperintense focus within the genu of the corpus callosu m, favor artifact. 2. No acute intracranial hemorrhage or mass effect. 3. Old left parietal lobe infarct and extensive small vessel disease. 4. Exam mildly compromised by motion artifact. ACT 112: Negative or not required by law. Electronically signed by: Ric Mancera M.D. 01/24/2021 5:15 PM
[2021-01-24 20:05] LABS: Hemoglobin 9.2 g/dL (12.0-16.0)
[2021-01-25] MEDS: PANTOprazole 40 MG in DEXTROSE 5% 100 ML IV SCH ×5 (02:34→22:19)
[2021-01-25] MEDS: cefTRIAXone SODIUM 1,000 MG in DEXTROSE 5% 50 ML IV SCH (02:34)
[2021-01-25] MEDS ORDERED: SODIUM CHLORIDE 0.9% 500 ML IV SCH (04:00)
[2021-01-25 06:00] LABS: Hematocrit (blood only) 27.5 % (37-47); Hemoglobin 9.1 g/dL (12.0-16.0); Mean Corpuscular Hemoglobin 29.6 pg (25-34); Mean Corpuscular Hgb Conc 33.1 g/dL (32-36); Mean Corpuscular Volume 89.6 fL (80-100); Mean Platelet Volume 8.4 fL (7.4-10.4); Platelet Count 254 K/uL (130-400); RDW Coefficient of Variation 17.4 % (11.5-14.5); RDW Standard Deviation 56.3 fL (36.4-46.3); Red Blood Count 3.07 M/uL (4.2-5.4); White Blood Count 8.48 K/uL (4.8-10.8)
[2021-01-25] MEDS: LEVOTHYROXINE SODIUM 50 MCG TABLET PO SCH (06:21)
[2021-01-25 06:32] LABS: Albumin Level 2.8 gm/dl (3.4-5.0); BUN Creatinine Ratio 20.1 (10-20); Calcium 8.2 mg/dl (8.5-10.1); Creatinine Clr Calc Pharmacy 32.7 ml/min; Est GFR (African American) 50.7 ml/min; Est GFR (Non-African American) 43.8 ml/min
[2021-01-25 06:43] LABS: Bilirubin,Total 0.5 mg/dl (0.2-1); Globulin 2.9 gm/dl (2.5-4.0); Thyroid Stimulating Hormone 3.82 uIu/ml (0.300-4.500); Total Protein 5.7 gm/dl (6.4-8.2)
[2021-01-25 06:53] LABS: Folate (Folic Acid) > 20.00 ng/ml (>5.38); Vitamin B12 878 pg/ml (193-986)
--- NOTE | 2021-01-25 07:44 | Hospitalist Progress Note ---
Date of Service January 25, 2021 Assessment & Plan (1) Anemia: (2) GI bleed: (3) Acute bronchiolitis: Acute CVA - acute left caudate infarction A 70-year-old female who presented with worsening confusion. 1. Worsening confusion: As per the Epic notes on 12/12/2020, she seems to be getting more confused and falls at home. Family was looking for assisted living. As per , she got more confused last two days. CT scan of the head was done, preliminary report unremarkable. The patient is currently oriented to name only. No fevers or leukocytosis. We will monitor in the tele floor and neuro consult. Can consider MRI once hb stabilizes.EEG as per neurology Patient seen by neurology, MRI brain ordered also blood work, folic acid level, RPR, TSH, vitamin B12 level MRI of the brain shows acute left caudate infarction carotid ultrasounds also obtained, no significant stenosis Echocardiogram shows a pericardial effusion without tamponade, mild LA enlargement, calcific mitral apparatus, moderate calcific aortic valve with mild stenosis Consider potline monitor as an outpatient, although this infarct clearly appears to be a small vessel Patient should also follow-up with neurology for dementia/? Alzheimer's 2. Gastrointestinal bleed: Acute blood loss anemia. Hemoccult was positive in the ER with black stools. Hemoglobin 5.8 on admission. Seems hemoglobin was 11.5 in April 2020. As per outpatient records, in May 2020, it was 9.6. Transfused 2 units of PRBCs, current Hgb 9.0. We will follow H and H q. 6 hours. Started on Protonix drip, will cont. IV fluids GI consulted -plan for EGD likely on Tuesday -Patient had a brown stool yesterday, H&H stable 3. Ongoing cough: It is going on for months now. Chest x-ray looks okay. CT chest preliminary report bronchiolitis.Started on Rocephin and Doxycycline, will cont. Obtain sputum cultx Guaifenesin, flutter valve, incentive spirometry 4. History of cerebrovascular accident, - on aspirin and Plavix and statin, which we will hold for now. -We will need to discuss with GI when she can restart at least 1 of antiplatelet agents 5. History of hypertension: -on lisinopril. Will monitor the blood pressure. 6. History of hypothyroidism: On Synthroid. 7. 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 8. TRISH on Chronic kidney disease stage III: Creatinine is 1.1 on admission. Cr (several hrs later) 1.3 We will cont. to monitor renal function. DVT prophylaxis: We will keep her on SCDs for now. Disposition: Closely monitor in the tele floor. Code status: Full code for now, But husbands wants to be called.. Social service to help with discharge planning. Admission and Anticipated Discharge Date Admission Date: January 24, 2021 Subjective Patient sen in follow up for confusion and anemia, GI bleed Currently she is resting comfortably in bed, in no acute distress She is able to tell me her name as her name and date of . She is more communicative than yesterday. She does not know the year or what brought her to the hospital. Currently she has no complaints, denies fevers chills, abdominal pain, nausea, vomiting She continues to cough throughout the interview Currently on IV PPI, s/p blood transfusion Had a bowel movement last evening, which was brown. Hemoglobin stable. Per GI, no EGD today, likely on Tuesday. Review of Systems Review of Systems: All systems reviewed & are unremarkable except as noted in HPI & below Constitutional: no fever and no chills Respiratory: + cough Cardiovascular: no chest pain and no palpitations Gastrointestinal: no abdominal pain, no nausea and no vomiting Physical Exam Physical Exam: GENERAL: WD/WN, confused but seems improved, not in acute distress. HEENT: NC/AT, Pupils equal, round, and reactive to light. Oral mucosa moist. NECK: No JVD. No neck masses. CARDIOVASCULAR: S1, S2 heard, regular rate and rhythm, no murmur, no gallop. RESPIRATORY SYSTEM: Normal AP diameter. No accessory muscle use. No wheezing, no crackles. ABDOMEN: Soft, bowel sounds present, nontender. No distention. NEURO : Alert and awake, oriented to name only. Hard of hearing. Obeys simple commands. Moves extremities. EXTREMITIES: No edema, no erythema. Results & Data Results & Data ([facility]) Vital Signs (Past 12 Hours) Vital Signs Temp Pulse Pulse Resp BP Pulse Ox 01/25/21 07:27 37.7 C H 80 21 93/51 L 95 01/25/21 06:31 78 01/25/21 03:35 109/56 L 01/25/21 03:25 79/53 L 01/25/21 03:00 36.9 C 77 20 82/45 L 90 Laboratory Results 01/25/21 01/25/21 01/25/21 Range/Units 05:43 05:43 05:43 WBC (4.8-10.8) K/uL RBC (4.2-5.4) M/uL Hgb (12.0-16.0) g/dL Hct (37-47) % MCV (80-100) fL MCH (25-34) pg MCHC (32-36) g/dL RDW Std Deviation (36.4-46.3) fL RDW Coeff of Ruddy (11.5-14.5) % Plt Count (130-400) K/uL MPV (7.4-10.4) fL Immature Gran % (Auto) % Neut % (Auto) % Lymph % (Auto) % [place] % (Auto) % Eos % (Auto) % Baso % (Auto) % Neut # (Auto) (1.4-6.5) K/uL Lymph # (Auto) (1.2-3.4) K/uL [place] # (Auto) (0.11-0.59) K/uL Eos # (Auto) (0-0.5) K/uL Baso # (Auto) (0-0.2) K/uL Immature Gran # (Auto) (0.00-0.02) K/uL Sodium 138 (136-145) mmol/L Potassium 4.0 (3.5-5.1) mmol/L Chloride 106 (98-107) mmol/L Carbon Dioxide 29 (21-32) mmol/L Anion Gap 3.0 (3-11) BUN 25 H (7-18) mg/dl Creatinine 1.23 H (0.6-1.2) mg/dl Est Cr Clr Drug Dosing 32.7 ml/min Est GFR ( Amer) 50.7 ml/min Est GFR (Non-Af Amer) 43.8 ml/min BUN/Creatinine Ratio 20.1 H (10-20) Glucose 90 (70-99) mg/dl Calcium 8.2 L (8.5-10.1) mg/dl Phosphorus 3.0 (2.5-4.9) mg/dl Magnesium 2.0 (1.8-2.4) mg/dl Total Bilirubin 0.5 (0.2-1) mg/dl AST 23 (15-37) U/L ALT 17 (12-78) U/L Alkaline Phosphatase 58 (45-117) U/L Troponin I (0-0.045) ng/ml Total Protein 5.7 L (6.4-8.2) gm/dl Albumin 2.8 L (3.4-5.0) gm/dl Globulin 2.9 (2.5-4.0) gm/dl Albumin/Globulin Ratio 1.0 (0.9-2) Vitamin B12 878 (193-986) pg/ml Folate > 20.00 (>5.38) ng/ml TSH 3.820 (0.300-4.500) uIu/ml Urine Color Urine Appearance (Clear) Urine pH (4.5-7.5) Ur Specific [place] (1.000-1.030) Urine Protein (Negative) Urine Glucose (UA) (Negative) Urine Ketones (Negative) Urine Blood (Negative) Urine Nitrite (Negative) Urine Bilirubin (Negative) Urine Urobilinogen (Negative) Ur Leukocyte Esterase (Negative) RPR Pending Crossmatch 01/25/21 01/24/21 01/24/21 Range/Units 05:43 Unknown 19:47 WBC 8.48 (4.8-10.8) K/uL RBC 3.07 L (4.2-5.4) M/uL Hgb 9.1 L (12.0-16.0) g/dL Hct 27.5 L (37-47) % MCV 89.6 (80-100) fL MCH 29.6 (25-34) pg MCHC 33.1 (32-36) g/dL RDW Std Deviation 56.3 H (36.4-46.3) fL RDW Coeff of Ruddy 17.4 H (11.5-14.5) % Plt Count 254 (130-400) K/uL MPV 8.4 (7.4-10.4) fL Immature Gran % (Auto) % Neut % (Auto) % Lymph % (Auto) % [place] % (Auto) % Eos % (Auto) % Baso % (Auto) % Neut # (Auto) (1.4-6.5) K/uL Lymph # (Auto) (1.2-3.4) K/uL [place] # (Auto) (0.11-0.59) K/uL Eos # (Auto) (0-0.5) K/uL Baso # (Auto) (0-0.2) K/uL Immature Gran # (Auto) (0.00-0.02) K/uL Sodium (136-145) mmol/L Potassium (3.5-5.1) mmol/L Chloride (98-107) mmol/L Carbon Dioxide (21-32) mmol/L Anion Gap (3-11) BUN (7-18) mg/dl Creatinine (0.6-1.2) mg/dl Est Cr Clr Drug Dosing ml/min Est GFR ( Amer) ml/min Est GFR (Non-Af Amer) ml/min BUN/Creatinine Ratio (10-20) Glucose (70-99) mg/dl Calcium (8.5-10.1) mg/dl Phosphorus (2.5-4.9) mg/dl Magnesium (1.8-2.4) mg/dl Total Bilirubin (0.2-1) mg/dl AST (15-37) U/L ALT (12-78) U/L Alkaline Phosphatase (45-117) U/L Troponin I 0.145 H* (0-0.045) ng/ml Total Protein (6.4-8.2) gm/dl Albumin (3.4-5.0) gm/dl Globulin (2.5-4.0) gm/dl Albumin/Globulin Ratio (0.9-2) Vitamin B12 (193-986) pg/ml Folate (>5.38) ng/ml TSH (0.300-4.500) uIu/ml Urine Color Yellow Urine Appearance Clear (Clear) Urine pH 5.0 (4.5-7.5) Ur Specific [place] 1.009 (1.000-1.030) Urine Protein Negative (Negative) Urine Glucose (UA) Negative (Negative) Urine Ketones Negative (Negative) Urine Blood Negative (Negative) Urine Nitrite Negative (Negative) Urine Bilirubin Negative (Negative) Urine Urobilinogen Negative (Negative) Ur Leukocyte Esterase Negative (Negative) RPR Crossmatch 01/24/21 01/24/21 01/24/21 Range/Units 19:47 14:48 14:48 WBC (4.8-10.8) K/uL RBC (4.2-5.4) M/uL Hgb 9.2 L 9.2 L (12.0-16.0) g/dL Hct 28.0 L 28.0 L (37-47) % MCV (80-100) fL MCH (25-34) pg MCHC (32-36) g/dL RDW Std Deviation (36.4-46.3) fL RDW Coeff of Ruddy (11.5-14.5) % Plt Count (130-400) K/uL MPV (7.4-10.4) fL Immature Gran % (Auto) % Neut % (Auto) % Lymph % (Auto) % [place] % (Auto) % Eos % (Auto) % Baso % (Auto) % Neut # (Auto) (1.4-6.5) K/uL Lymph # (Auto) (1.2-3.4) K/uL [place] # (Auto) (0.11-0.59) K/uL Eos # (Auto) (0-0.5) K/uL Baso # (Auto) (0-0.2) K/uL Immature Gran # (Auto) (0.00-0.02) K/uL Sodium (136-145) mmol/L Potassium (3.5-5.1) mmol/L Chloride (98-107) mmol/L Carbon Dioxide (21-32) mmol/L Anion Gap (3-11) BUN (7-18) mg/dl Creatinine (0.6-1.2) mg/dl Est Cr Clr Drug Dosing ml/min Est GFR ( Amer) ml/min Est GFR (Non-Af Amer) ml/min BUN/Creatinine Ratio (10-20) Glucose (70-99) mg/dl Calcium (8.5-10.1) mg/dl Phosphorus (2.5-4.9) mg/dl Magnesium (1.8-2.4) mg/dl Total Bilirubin (0.2-1) mg/dl AST (15-37) U/L ALT (12-78) U/L Alkaline Phosphatase (45-117) U/L Troponin I 0.137 H* (0-0.045) ng/ml Total Protein (6.4-8.2) gm/dl Albumin (3.4-5.0) gm/dl Globulin (2.5-4.0) gm/dl Albumin/Globulin Ratio (0.9-2) Vitamin B12 (193-986) pg/ml Folate (>5.38) ng/ml TSH (0.300-4.500) uIu/ml Urine Color Urine Appearance (Clear) Urine pH (4.5-7.5) Ur Specific [place] (1.000-1.030) Urine Protein (Negative) Urine Glucose (UA) (Negative) Urine Ketones (Negative) Urine Blood (Negative) Urine Nitrite (Negative) Urine Bilirubin (Negative) Urine Urobilinogen (Negative) Ur Leukocyte Esterase (Negative) RPR Crossmatch 01/24/21 01/24/21 01/24/21 Range/Units 12:55 11:25 11:25 WBC 11.88 H (4.8-10.8) K/uL RBC 3.03 L (4.2-5.4) M/uL Hgb 8.9 L 9.0 L D (12.0-16.0) g/dL Hct 27.0 L 27.5 L (37-47) % MCV 90.8 (80-100) fL MCH 29.7 (25-34) pg MCHC 32.7 (32-36) g/dL RDW Std Deviation 56.6 H (36.4-46.3) fL RDW Coeff of Ruddy 17.4 H (11.5-14.5) % Plt Count 237 (130-400) K/uL MPV 8.1 (7.4-10.4) fL Immature Gran % (Auto) 0.1 % Neut % (Auto) 93.7 % Lymph % (Auto) 2.7 % [place] % (Auto) 3.2 % Eos % (Auto) 0.2 % Baso % (Auto) 0.1 % Neut # (Auto) 11.14 H (1.4-6.5) K/uL Lymph # (Auto) 0.32 L (1.2-3.4) K/uL [place] # (Auto) 0.38 (0.11-0.59) K/uL Eos # (Auto) 0.02 (0-0.5) K/uL Baso # (Auto) 0.01 (0-0.2) K/uL Immature Gran # (Auto) 0.01 (0.00-0.02) K/uL Sodium 139 (136-145) mmol/L Potassium 3.8 (3.5-5.1) mmol/L Chloride 106 (98-107) mmol/L Carbon Dioxide 28 (21-32) mmol/L Anion Gap 5.0 (3-11) BUN 36 H (7-18) mg/dl Creatinine 1.27 H (0.6-1.2) mg/dl Est Cr Clr Drug Dosing 31.7 ml/min Est GFR ( Amer) 48.8 ml/min Est GFR (Non-Af Amer) 42.1 ml/min BUN/Creatinine Ratio 28.0 H (10-20) Glucose 101 H (70-99) mg/dl Calcium 8.2 L (8.5-10.1) mg/dl Phosphorus (2.5-4.9) mg/dl Magnesium 1.9 (1.8-2.4) mg/dl Total Bilirubin (0.2-1) mg/dl AST (15-37) U/L ALT (12-78) U/L Alkaline Phosphatase (45-117) U/L Troponin I 0.104 H* (0-0.045) ng/ml Total Protein (6.4-8.2) gm/dl Albumin (3.4-5.0) gm/dl Globulin (2.5-4.0) gm/dl Albumin/Globulin Ratio (0.9-2) Vitamin B12 (193-986) pg/ml Folate (>5.38) ng/ml TSH (0.300-4.500) uIu/ml Urine Color Urine Appearance (Clear) Urine pH (4.5-7.5) Ur Specific [place] (1.000-1.030) Urine Protein (Negative) Urine Glucose (UA) (Negative) Urine Ketones (Negative) Urine Blood (Negative) Urine Nitrite (Negative) Urine Bilirubin (Negative) Urine Urobilinogen (Negative) Ur Leukocyte Esterase (Negative) RPR Crossmatch 01/24/21 Range/Units 02:33 WBC (4.8-10.8) K/uL RBC (4.2-5.4) M/uL Hgb (12.0-16.0) g/dL Hct (37-47) % MCV (80-100) fL MCH (25-34) pg MCHC (32-36) g/dL RDW Std Deviation (36.4-46.3) fL RDW Coeff of Ruddy (11.5-14.5) % Plt Count (130-400) K/uL MPV (7.4-10.4) fL Immature Gran % (Auto) % Neut % (Auto) % Lymph % (Auto) % [place] % (Auto) % Eos % (Auto) % Baso % (Auto) % Neut # (Auto) (1.4-6.5) K/uL Lymph # (Auto) (1.2-3.4) K/uL [place] # (Auto) (0.11-0.59) K/uL Eos # (Auto) (0-0.5) K/uL Baso # (Auto) (0-0.2) K/uL Immature Gran # (Auto) (0.00-0.02) K/uL Sodium (136-145) mmol/L Potassium (3.5-5.1) mmol/L Chloride (98-107) mmol/L Carbon Dioxide (21-32) mmol/L Anion Gap (3-11) BUN (7-18) mg/dl Creatinine (0.6-1.2) mg/dl Est Cr Clr Drug Dosing ml/min Est GFR ( Amer) ml/min Est GFR (Non-Af Amer) ml/min BUN/Creatinine Ratio (10-20) Glucose (70-99) mg/dl Calcium (8.5-10.1) mg/dl Phosphorus (2.5-4.9) mg/dl Magnesium (1.8-2.4) mg/dl Total Bilirubin (0.2-1) mg/dl AST (15-37) U/L ALT (12-78) U/L Alkaline Phosphatase (45-117) U/L Troponin I (0-0.045) ng/ml Total Protein (6.4-8.2) gm/dl Albumin (3.4-5.0) gm/dl Globulin (2.5-4.0) gm/dl Albumin/Globulin Ratio (0.9-2) Vitamin B12 (193-986) pg/ml Folate (>5.38) ng/ml TSH (0.300-4.500) uIu/ml Urine Color Urine Appearance (Clear) Urine pH (4.5-7.5) Ur Specific [place] (1.000-1.030) Urine Protein (Negative) Urine Glucose (UA) (Negative) Urine Ketones (Negative) Urine Blood (Negative) Urine Nitrite (Negative) Urine Bilirubin (Negative) Urine Urobilinogen (Negative) Ur Leukocyte Esterase (Negative) RPR Crossmatch See Detail Medications Administered Current Inpatient Medications Acetaminophen (Acetaminophen 325 Mg Tab) 650 mg PO Q4H PRN PRN Reason: Pain or Fever Stop: 02/23/21 05:06 Albuterol (Albuterol Hfa 8 Gm Inhaler) 2 puffs INH Q4 PRN PRN Reason: Shortness Of Breath Or Wheezing Stop: 02/23/21 05:06 Atorvastatin Calcium (Atorvastatin 40 Mg Tab) 40 mg PO QAM ON LICENSE OF [facility] Stop: 02/23/21 08:59 Last Admin: 01/24/21 08:09 Dose: 40 mg Documented by: Guaifenesin (Guaifenesin 600 Mg Tabcr) 600 mg PO Q12 ON LICENSE OF [facility] Stop: 02/23/21 08:59 Last Admin: 01/24/21 21:17 Dose: 600 mg Documented by: Pantoprazole Sodium 40 mg/ (Dextrose) 100 mls @ 20 mls/hr IV Q5H ON LICENSE OF [facility] Stop: 02/23/21 02:15 Last Admin: 01/25/21 07:14 Dose: 8 mg/hr, 20 mls/hr Documented by: Ceftriaxone Sodium 1,000 mg/ (Dextrose) 50 mls @ 100 mls/hr IV Q24H ON LICENSE OF [facility]; Protocol Stop: 02/01/21 02:59 Last Infusion: 01/25/21 06:27 Dose: Infused Documented by: Doxycycline Hyclate 100 mg/ (Dextrose) 110 mls @ 50 mls/hr IV Q12H ON LICENSE OF [facility] Stop: 01/31/21 06:59 Last Infusion: 01/24/21 20:41 Dose: Infused Documented by: Levothyroxine Sodium (Levothyroxine Sodium 50 Mcg Tablet) 50 mcg PO DAILYBB ON LICENSE OF [facility] Stop: 02/23/21 06:29 Last Admin: 01/25/21 06:21 Dose: 50 mcg Documented by: Lisinopril (Lisinopril 10 Mg Tab) 10 mg PO QAM ON LICENSE OF [facility] Stop: 02/23/21 08:59 Last Admin: 01/24/21 08:10 Dose: 10 mg Documented by: Loratadine (Loratadine 10 Mg Tab) 10 mg PO DAILY ON LICENSE OF [facility] Stop: 02/23/21 08:59 Last Admin: 01/24/21 08:10 Dose: 10 mg Documented by: Nitroglycerin (Nitroglycerin Sl 0.4 Mg/Tab Tab) 0.4 mg SL UD PRN PRN Reason: Chest Pain Stop: 02/23/21 05:06 Ondansetron HCl (Ondansetron Inj 2 Mg/Ml 2 Ml Vial) 4 mg IV Q6H PRN PRN Reason: Nausea Stop: 02/23/21 05:06 Simethicone (Simethicone 80 Mg Chew) 80 mg PO Q6 PRN PRN Reason: bloating Stop: 02/23/21 05:18 (1) Anemia Anemia type: unspecified type Qualified Code(s): D64.9 - Anemia, unspecified (2) GI bleed GI bleed type/associated pathology: unspecified gastrointestinal hemorrhage type Qualified Code(s): K92.2 - Gastrointestinal hemorrhage, unspecified
--- NOTE | 2021-01-25 08:06 | Gastroenterology Progress Note ---
Date of Service January 25, 2021 Assessment & Plan (1) Anemia: 70 yo female with multiple medical problems and recent progressive decline in mental status and falls admitted with confusion found to have a hgb of 5.8 and melanic stools per notes on admission. Hemodynamically stable. Received 2 units of blood and hgb has been stable at 9.2. Large brown BM last evening. No melena since admission. - PPI gtt. - May have clears today. - IVF - Daily H/H - Hold anticoagulants. - Will follow closely and plan for EGD Tuesday. Conservative mgt. -Called family and have not received a call back as of this morning. Admission and Anticipated Discharge Date Admission Date: January 24, 2021 Subjective Resting comfortably. remains oriented only to person. Unable to answer most questions. Large brown BM last evening. No melena. Hgb stable at 9.2 after 2 units of blood. hemodynamically stable. Review of Systems Review of Systems: Unobtainable due to cognitive status Physical Exam Constitutional: WD/WN, vitals as above Respiratory: normal respiratory effort, lungs clear to auscultation Cardiovascular: RRR, no murmur, no edema Gastrointestinal (Abdomen): normal bowel sounds, soft, nontender, no hepatosplenomegaly Results & Data ([facility]) Vital Signs (Past 12 Hours) Vital Signs Temp Pulse Pulse Resp BP Pulse Ox 01/25/21 07:27 37.7 C H 80 21 93/51 L 95 01/25/21 06:31 78 01/25/21 03:35 109/56 L 01/25/21 03:25 79/53 L 01/25/21 03:00 36.9 C 77 20 82/45 L 90 (1) Anemia Anemia type: unspecified type Qualified Code(s): D64.9 - Anemia, unspecified
[2021-01-25] MEDS: lisinopril 10 MG TAB PO SCH (08:50)
[2021-01-25] MEDS: guaiFENesin 600 MG TABCR PO SCH ×2 (08:50→22:18)
[2021-01-25] MEDS: ATORVASTATIN 40 MG TAB PO SCH (08:51)
[2021-01-25] MEDS: LORATADINE 10 MG TAB PO SCH (08:51)
[2021-01-25] MEDS: DOXYCYCLINE HYCLATE 100 MG in DEXTROSE 5% 100 ML IV SCH ×2 (09:02→18:11)
--- NOTE | 2021-01-25 09:25 | Ultrasound Report ---
CAROTID ARTERY ULTRASOUND CLINICAL HISTORY: Cerebrovascular accident. COMPARISON STUDY: Carotid ultrasound September 04, 2017. TECHNIQUE: Real-time, grayscale, and color Doppler sonography of the carotid and vertebral arteries w as performed. Images were viewed in the transverse and longitudinal planes. FINDINGS: There is mild to moderate atherosclerotic plaque. Velocity measurements are listed below. COMMON CAROTID PEAK SYSTOLIC VELOCITY (CM/S): RIGHT 61 LEFT 79 ICA PEAK SYSTOLIC VELOCITY (CM/S): RIGHT 76 LEFT 75 Systolic ratios between the internal to common carotid arteries were normal. Antegrade flow is seen in the vertebral arteries. The external carotid arteries are patent. Blood pressure in the right arm measured 122/63. Blood pressure in the left arm measured 111/62. IMPRESSION: No evidence for a hemodynamically significant stenosis. ACT 112: Negative or not required by law. Electronically signed by: Ric Mancera M.D. 01/25/2021 9:23 AM
--- NOTE | 2021-01-25 10:35 | Electrocardiogram Report ---
Test Reason : Blood Pressure : / mmHG Vent. Rate : 081 BPM Atrial Rate : 081 BPM P-R Int : 136 ms QRS Dur : 084 ms QT Int : 410 ms P-R-T Axes : 051 030 047 degrees QTc Int : 476 ms Normal sinus rhythm Normal ECG When compared with ECG of 24-JAN-2021 03:04, The ST changes have improved Confirmed by Corey Vizcaino ([id number]) on 01/25/2021 10:35:16 AM Referred By: REFERRED SELF Confirmed By:Corey Vizcaino
--- NOTE | 2021-01-25 11:53 | XRay Report ---
SINGLE VIEW CHEST CLINICAL HISTORY: Dyspnea. FINDINGS: An AP, portable, upright chest radiograph is compared to chest x-ray and chest CT dated 12/28. The heart is enlarged noting atherosclerotic calcification of the thoracic aorta. The pulmona ry vasculature is noncongested. There are calcified hilar nodes. Chronic interstitial thickening and nodularity is similar to previous. Scarring/atelectasis is seen at the lung bases. No large pleural e ffusion or pneumothorax is seen. The skeletal structures are osteopenic. The bony thorax is grossly i ntact. IMPRESSION: 1. Cardiomegaly with no acute cardiopulmonary abnormality. 2. Chronic changes as above which were better assessed on yesterday's chest CT. ACT 112: Negative or not required by law. Electronically signed by: Jim Cabrera M.D. 01/25/2021 11:51 AM
--- NOTE | 2021-01-25 14:19 | Progress Notes ---
DATE: 01/25/2021 SUBJECTIVE: I am seeing the patient in followup of encephalopathy with a history of cognitive dysfunction. Her MRI of the brain, which I reviewed, shows an acute left caudate infarction. Carotid ultrasound shows no significant stenosis in the carotid arteries. Echocardiogram shows a pericardial effusion without tamponade, mild left atrial enlargement, calcific mitral apparatus, moderate calcified aortic valve with mild stenosis. The patient has no complaints. PHYSICAL EXAMINATION: She is awake and alert, oriented to person and hospital. She has some right/left confusion. Her naming is normal. Her speech is much less dysarthric. There is still some scanning for words. There is normal extraocular motility, visual beckham, may be a minor flattening in the right nasolabial fold. No asymmetric weakness. Sensation intact to light touch. Reflexes symmetric. Toes downgoing. IMPRESSION: Delirium superimposed on dementia polyfactorial related to blood loss, dehydration and caudate infarct. PLAN: No antiplatelet therapy at present. The patient is going to have endoscopy, would ask GI when she can safely resume antiplatelet therapy. Consider threat monitoring analyst as an outpatient, although this infarct clearly appears to be small vessel. She does have left atrial enlargement on echo. Dementia, query Alzheimer's. The patient should be scheduled to see us post-discharge. We will sign off.
[2021-01-26] MEDS: PANTOprazole 40 MG in DEXTROSE 5% 100 ML IV SCH ×4 (04:21→21:05)
[2021-01-26] MEDS: cefTRIAXone SODIUM 1,000 MG in DEXTROSE 5% 50 ML IV SCH (04:21)
[2021-01-26] MEDS: LEVOTHYROXINE SODIUM 50 MCG TABLET PO SCH (05:38)
[2021-01-26] MEDS: DOXYCYCLINE HYCLATE 100 MG in DEXTROSE 5% 100 ML IV SCH ×2 (05:38→18:11)
[2021-01-26 06:18] LABS: Hematocrit (blood only) 28.4 % (37-47); Hemoglobin 8.9 g/dL (12.0-16.0); Mean Corpuscular Hemoglobin 29.3 pg (25-34); Mean Corpuscular Hgb Conc 31.3 g/dL (32-36); Mean Corpuscular Volume 93.4 fL (80-100); Mean Platelet Volume 8.9 fL (7.4-10.4); Platelet Count 279 K/uL (130-400); RDW Coefficient of Variation 16.7 % (11.5-14.5); RDW Standard Deviation 57.2 fL (36.4-46.3); Red Blood Count 3.04 M/uL (4.2-5.4); White Blood Count 5.68 K/uL (4.8-10.8)
[2021-01-26 06:49] LABS: BUN Creatinine Ratio 15.1 (10-20); Calcium 8.4 mg/dl (8.5-10.1); Creatinine Clr Calc Pharmacy 34.4 ml/min; Est GFR (African American) 53.9 ml/min; Est GFR (Non-African American) 46.5 ml/min; Magnesium 2.2 mg/dl (1.8-2.4); Potassium 3.9 mmol/L (3.5-5.1)
[2021-01-26 06:50] LABS: Phosphorus 2.8 mg/dl (2.5-4.9)
--- NOTE | 2021-01-26 07:33 | Gastroenterology Progress Note ---
Date of Service January 26, 2021 Assessment & Plan (1) Anemia: 70 yo female with multiple medical problems and recent progressive decline in mental status and falls admitted with confusion found to have a hgb of 5.8 and melanic stools per notes on admission. Hemodynamically stable. Received 2 units of blood and hgb has been stable at 9.2. Large brown BM last evening. No melena since admission. - PPI gtt. - May advance diet today. NPO after midnight tonight for EGD tomorrow. - IVF - Daily H/H - Hold anticoagulants. Admission and Anticipated Discharge Date Admission Date: January 24, 2021 Subjective No further melena. h/H is stable. BUN not elevated. Hemodynamically stable. Review of Systems Review of Systems: Unobtainable due to cognitive status Physical Exam Constitutional: WD/WN, vitals as above Eyes: PERRL, conjunctivae normal, anicteric sclerae Neck: trachea midline, no thyromegaly Respiratory: normal respiratory effort, lungs clear to auscultation Cardiovascular: RRR, no murmur, no edema Gastrointestinal (Abdomen): normal bowel sounds, soft, nontender, no hepatosplenomegaly Musculoskeletal: no cyanosis or clubbing, extremities motor strength 5/5 Results & Data ([facility]) Vital Signs (Past 12 Hours) Vital Signs Temp Pulse Pulse Pulse Resp BP Pulse Ox 01/26/21 07:27 36.5 C 69 13 91/64 L 100 01/26/21 07:08 60 01/26/21 05:00 83 01/26/21 03:00 36.6 C 65 16 103/65 100 (1) Anemia Anemia type: unspecified type Qualified Code(s): D64.9 - Anemia, unspecified
--- NOTE | 2021-01-26 07:34 | Hospitalist Progress Note ---
Date of Service January 26, 2021 Assessment & Plan (1) Anemia: (2) GI bleed: (3) Acute bronchiolitis: Acute CVA - acute left caudate infarction A 70-year-old female who presented with worsening confusion. 1. Worsening confusion: As per the Epic notes on 12/12/2020, she seems to be getting more confused and falls at home. Family was looking for assisted living. As per , she got more confused last two days. Son called the hospital, and updated the nursing staff, patient and her just moved to the son's house due to patient's worsening mental status. Per son, patient has had cough for some time, and was seen by several physicians. She was started on an allergy medication for that. CT scan of the head - negative. No fevers or leukocytosis. Neurology consulted and MRI brain obtained Patient seen by neurology, MRI brain ordered also blood work, folic acid level, RPR, TSH, vitamin B12 level MRI of the brain shows acute left caudate infarction Carotid ultrasounds also obtained, no significant stenosis Echocardiogram shows a pericardial effusion without tamponade, mild LA enlargement, calcific mitral apparatus, moderate calcific aortic valve with mild stenosis Consider ticket sales agent as an outpatient, although this infarct clearly appears to be a small vessel Patient should also follow-up with neurology for dementia/? Alzheimer's Awaiting GI input about restarting at least one antiplatelet medication 2. Gastrointestinal bleed: Acute blood loss anemia. Hemoccult was positive in the ER with black stools. Hemoglobin 5.8 on admission. Seems hemoglobin was 11.5 in April 2020. As per outpatient records, in May 2020, it was 9.6. Transfused 2 units of PRBCs, current Hgb 9.2. We will follow H and H Started on Protonix drip, will cont. IV fluids GI consulted -plan for EGD likely on Tuesday (01/27/2021) -Patient had a brown stool in the hospital, H&H stable 3. Ongoing cough: It is going on for months now. Chest x-ray looks okay. CT chest preliminary report bronchiolitis.Started on Rocephin and Doxycycline, will cont. Obtain sputum cultx Guaifenesin, flutter valve, incentive spirometry Percent patient was also started on allergy medication recently because of her cough 4. History of cerebrovascular accident, - on aspirin and Plavix and statin, which we will hold for now. -We will need to discuss with GI when she can restart at least 1 of antiplatelet agents 5. History of hypertension: -on lisinopril. Will monitor the blood pressure. Blood pressure has been on the low side while in the hospital 6. History of hypothyroidism: On Synthroid. 7. 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 8. TRISH on Chronic kidney disease stage III: Creatinine is 1.1 on admission. Cr (several hrs later) 1.3 Current Cr 1.2 We will cont. to monitor renal function. DVT prophylaxis: We will keep her on SCDs for now. Disposition: Closely monitor in the tele floor. Code status: Full code for now, But husbands wants to be called.. Social service to help with discharge planning. Admission and Anticipated Discharge Date Admission Date: January 24, 2021 Subjective Patient seen in follow up for confusion and anemia, GI bleed, cough Currently she is sitting up in chair, in no acute distress, comfortable She is able to tell me her full name and date of . She knows she is in the hospital, however not sure which one. She is more communicative than yesterday. Son called the hospital, and updated nursing staff, patient and her were moving to the son's house because of patient's worsening mental status/dementia. Over the past few days they actually physically moved to the son's house. Son reported that patient has had cough for some time, and was seen by several physicians. Started on allergy medication. Pt currently no complaints, denies fevers chills, abdominal pain, nausea, vomiting She continues to have a cough on deep inspiration. Currently on IV PPI, s/p blood transfusion Had a bowel movement, which was brown. Hemoglobin stable. Per GI, plan for EGD on Tuesday (tomorrow). Review of Systems Review of Systems: All systems reviewed & are unremarkable except as noted in HPI & below Constitutional: no fever and no chills Respiratory: + cough Cardiovascular: no chest pain and no palpitations Gastrointestinal: no abdominal pain, no nausea and no vomiting Physical Exam Physical Exam: GENERAL: WD/WN, still somewhat confused but improved, not in acute distress. HEENT: NC/AT, Pupils equal, round, and reactive to light. Oral mucosa moist. NECK: No JVD. No neck masses. CARDIOVASCULAR: S1, S2 heard, regular rate and rhythm, no murmur, no gallop. RESPIRATORY SYSTEM: Normal AP diameter. No accessory muscle use. + diffuse rhonchi , +cough w/ dep inspiration, No wheezing ABDOMEN: Soft, bowel sounds present, nontender. No distention. NEURO : Alert and awake, oriented to name only. Hard of hearing. Obeys simple commands and cooperative. Moves extremities. EXTREMITIES: No edema, no erythema. Results & Data Results & Data ([facility]) Vital Signs (Past 12 Hours) Vital Signs Temp Pulse Pulse Pulse Resp BP Pulse Ox 01/26/21 07:27 36.5 C 69 13 91/64 L 100 01/26/21 07:08 60 01/26/21 05:00 83 01/26/21 03:00 36.6 C 65 16 103/65 100 Laboratory Results 01/26/21 01/26/21 Range/Units 05:32 05:32 WBC 5.68 (4.8-10.8) K/uL RBC 3.04 L (4.2-5.4) M/uL Hgb 8.9 L (12.0-16.0) g/dL Hct 28.4 L (37-47) % MCV 93.4 (80-100) fL MCH 29.3 (25-34) pg MCHC 31.3 L (32-36) g/dL RDW Std Deviation 57.2 H (36.4-46.3) fL RDW Coeff of Ruddy 16.7 H (11.5-14.5) % Plt Count 279 (130-400) K/uL MPV 8.9 (7.4-10.4) fL Sodium 141 (136-145) mmol/L Potassium 3.9 (3.5-5.1) mmol/L Chloride 106 (98-107) mmol/L Carbon Dioxide 30 (21-32) mmol/L Anion Gap 4.0 (3-11) BUN 18 (7-18) mg/dl Creatinine 1.17 (0.6-1.2) mg/dl Est Cr Clr Drug Dosing 34.4 ml/min Est GFR ( Amer) 53.9 ml/min Est GFR (Non-Af Amer) 46.5 ml/min BUN/Creatinine Ratio 15.1 (10-20) Glucose 81 (70-99) mg/dl Calcium 8.4 L (8.5-10.1) mg/dl Phosphorus 2.8 (2.5-4.9) mg/dl Magnesium 2.2 (1.8-2.4) mg/dl Medications Administered Current Inpatient Medications Acetaminophen (Acetaminophen 325 Mg Tab) 650 mg PO Q4H PRN PRN Reason: Pain or Fever Stop: 02/23/21 05:06 Albuterol (Albuterol Hfa 8 Gm Inhaler) 2 puffs INH Q4 PRN PRN Reason: Shortness Of Breath Or Wheezing Stop: 02/23/21 05:06 Atorvastatin Calcium (Atorvastatin 40 Mg Tab) 40 mg PO QAM [facility] Stop: 02/23/21 08:59 Last Admin: 01/25/21 08:51 Dose: 40 mg Documented by: Guaifenesin (Guaifenesin 600 Mg Tabcr) 600 mg PO Q12 [facility] Stop: 02/23/21 08:59 Last Admin: 01/25/21 22:18 Dose: 600 mg Documented by: Pantoprazole Sodium 40 mg/ (Dextrose) 100 mls @ 20 mls/hr IV Q5H [facility] Stop: 02/23/21 02:15 Last Admin: 01/26/21 04:21 Dose: 8 mg/hr, 20 mls/hr Documented by: Ceftriaxone Sodium 1,000 mg/ (Dextrose) 50 mls @ 100 mls/hr IV Q24H [facility]; Protocol Stop: 02/01/21 02:59 Last Infusion: 01/26/21 04:55 Dose: Infused Documented by: Doxycycline Hyclate 100 mg/ (Dextrose) 110 mls @ 50 mls/hr IV Q12H [facility] Stop: 01/31/21 06:59 Last Admin: 01/26/21 05:38 Dose: 50 mls/hr Documented by: Levothyroxine Sodium (Levothyroxine Sodium 50 Mcg Tablet) 50 mcg PO DAILYBB [facility] Stop: 02/23/21 06:29 Last Admin: 01/26/21 05:38 Dose: 50 mcg Documented by: Lisinopril (Lisinopril 10 Mg Tab) 10 mg PO QAM [facility] Stop: 02/23/21 08:59 Last Admin: 01/25/21 08:50 Dose: 10 mg Documented by: Loratadine (Loratadine 10 Mg Tab) 10 mg PO DAILY [facility] Stop: 02/23/21 08:59 Last Admin: 01/25/21 08:51 Dose: 10 mg Documented by: Nitroglycerin (Nitroglycerin Sl 0.4 Mg/Tab Tab) 0.4 mg SL UD PRN PRN Reason: Chest Pain Stop: 02/23/21 05:06 Ondansetron HCl (Ondansetron Inj 2 Mg/Ml 2 Ml Vial) 4 mg IV Q6H PRN PRN Reason: Nausea Stop: 02/23/21 05:06 Simethicone (Simethicone 80 Mg Chew) 80 mg PO Q6 PRN PRN Reason: bloating Stop: 02/23/21 05:18 (1) Anemia Anemia type: unspecified type Qualified Code(s): D64.9 - Anemia, unspecified (2) GI bleed GI bleed type/associated pathology: unspecified gastrointestinal hemorrhage type Qualified Code(s): K92.2 - Gastrointestinal hemorrhage, unspecified
[2021-01-26] MEDS: guaiFENesin 600 MG TABCR PO SCH ×2 (08:18→20:15)
[2021-01-26] MEDS: LORATADINE 10 MG TAB PO SCH (08:18)
[2021-01-26] MEDS: ATORVASTATIN 40 MG TAB PO SCH (08:19)
[2021-01-26] MEDS: ALBUMIN 25% 12.5 GM/50 ML VIAL IV SCH ×2 (09:09→09:58)
[2021-01-26] MEDS: lisinopril 10 MG TAB PO SCH (09:20)
--- NOTE | 2021-01-26 09:56 | Electrocardiogram Report ---
Test Reason : Blood Pressure : / mmHG Vent. Rate : 078 BPM Atrial Rate : 078 BPM P-R Int : 000 ms QRS Dur : 080 ms QT Int : 420 ms P-R-T Axes : 000 139 150 degrees QTc Int : 478 ms Poor data quality, interpretation may be adversely affected Suspect arm lead reversal, interpretation assumes no reversal Normal sinus rhythm Low voltage QRS Lateral infarct , age undetermined Abnormal ECG When compared with ECG of 24-JAN-2021 15:30, Significant changes have occurred repeat tracing with better baselinhe and correct limb leads Confirmed by Corey Vizcaino ([id number]) on 01/26/2021 9:56:30 AM Referred By: REFERRED SELF Confirmed By:Corey Vizcaino
--- NOTE | 2021-01-26 10:16 | Electrocardiogram Report ---
Test Reason : Blood Pressure : / mmHG Vent. Rate : 071 BPM Atrial Rate : 071 BPM P-R Int : 140 ms QRS Dur : 086 ms QT Int : 436 ms P-R-T Axes : 063 051 036 degrees QTc Int : 473 ms Normal sinus rhythm Normal ECG When compared with ECG of 25-JAN-2021 05:55, (unconfirmed) limb lead reversal has been corrected Confirmed by Corey Vizcaino ([id number]) on 01/26/2021 10:16:37 AM Referred By: REFERRED SELF Confirmed By:Corey Vizcaino
[2021-01-27] MEDS: PANTOprazole 40 MG in DEXTROSE 5% 100 ML IV SCH ×5 (01:48→20:30)
[2021-01-27] MEDS: cefTRIAXone SODIUM 1,000 MG in DEXTROSE 5% 50 ML IV SCH (02:13)
[2021-01-27] MEDS: DOXYCYCLINE HYCLATE 100 MG in DEXTROSE 5% 100 ML IV SCH ×2 (06:08→18:22)
[2021-01-27] MEDS: LEVOTHYROXINE SODIUM 50 MCG TABLET PO SCH (06:08)
[2021-01-27 07:06] LABS: Hematocrit (blood only) 25.1 % (37-47); Hemoglobin 7.9 g/dL (12.0-16.0); Mean Corpuscular Hemoglobin 29.2 pg (25-34); Mean Corpuscular Hgb Conc 31.5 g/dL (32-36); Mean Corpuscular Volume 92.6 fL (80-100); Mean Platelet Volume 8.5 fL (7.4-10.4); Platelet Count 265 K/uL (130-400); RDW Standard Deviation 54.1 fL (36.4-46.3); Red Blood Count 2.71 M/uL (4.2-5.4); White Blood Count 5.56 K/uL (4.8-10.8)
[2021-01-27 07:36] LABS: Calcium 7.7 mg/dl (8.5-10.1); Creatinine Clr Calc Pharmacy 34.4 ml/min; Est GFR (African American) 53.9 ml/min; Est GFR (Non-African American) 46.5 ml/min
--- NOTE | 2021-01-27 08:00 | Hospitalist Progress Note ---
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 1. Worsening confusion: As per the Epic notes on 12/12/2020, she seems to be getting more confused and falls at home. Family was looking for assisted living. As per , she got more confused last two days. Son called the hospital, and updated the nursing staff, patient and her just moved to the son's house due to patient's worsening mental status. Per son, patient has had cough for some time, and was seen by several physicians. She was started on an allergy medication for that. CT scan of the head - negative. No fevers or leukocytosis. Neurology consulted and MRI brain obtained Patient seen by neurology, MRI brain ordered also blood work, folic acid level, RPR, TSH, vitamin B12 level MRI of the brain shows acute left caudate infarction Carotid ultrasounds also obtained, no significant stenosis Echocardiogram shows a pericardial effusion without tamponade, mild LA enlargement, calcific mitral apparatus, moderate calcific aortic valve with mild stenosis Consider communications systems engineer as an outpatient, although this infarct clearly appears to be a small vessel Patient should also follow-up with neurology for dementia/? Alzheimer's Awaiting GI input about restarting at least one antiplatelet medication 2. Gastrointestinal bleed: Acute blood loss anemia. Hemoccult was positive in the ER with black stools. Hemoglobin 5.8 on admission. Seems hemoglobin was 11.5 in April 2020. As per outpatient records, in May 2020, it was 9.6. Transfused 2 units of PRBCs, Hgb stable over the weekend at 9 but currently Hgb lower at 7.9 We will follow H and H Cont. protonix drip, will cont. IV fluids GI consulted -plan for EGD today (01/27/2021) -Patient had a brown stools in the hospital over the weekend 3. Ongoing cough: It is going on for months now. Chest x-ray looks okay. CT chest preliminary report bronchiolitis.Started on Rocephin and Doxycycline, will cont. Obtain sputum cultx Guaifenesin, flutter valve, incentive spirometry Per son,patient was also started on allergy medication recently because of her cough 4. History of cerebrovascular accident, - on aspirin and Plavix and statin, which we will hold for now. -We will need to discuss with GI when she can restart at least 1 of antiplatelet agents 5. History of hypertension: -on lisinopril. Will monitor the blood pressure. 6. History of hypothyroidism: On Synthroid. 7. 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 8. TRISH on Chronic kidney disease stage III: Creatinine is 1.1 on admission. Cr (several hrs later) 1.3 Current Cr 1.2 We will cont. to monitor renal function. DVT prophylaxis: We will keep her on SCDs for now. Disposition: Closely monitor in the tele floor. Code status: Full code for now, But husbands wants to be called.. Social service to help with discharge planning. Admission and Anticipated Discharge Date Admission Date: January 24, 2021 Subjective Patient seen in follow up for confusion and anemia, GI bleed, cough Currently she is sitting up in chair, in no acute distress, comfortable She is able to tell me her full name and date of . She knows she is in the hospital. Son called the hospital, and updated nursing staff, patient and her were moving to the son's house because of patient's worsening mental status/dementia. Over the past few days they actually physically moved to the son's house. Son reported that patient has had cough for some time, and was seen by several physicians. Started on allergy medication. Pt currently has no complaints, denies fevers chills, abdominal pain, nausea, vomiting She continues to have a cough on deep inspiration. Currently on IV PPI, s/p blood transfusion Had a bowel movement, which was brown. Hemoglobin lower today at 7.9. Per GI, plan for EGD today. Review of Systems Review of Systems: All systems reviewed & are unremarkable except as noted in HPI & below Constitutional: no fever and no chills Respiratory: + cough; no dyspnea Cardiovascular: no chest pain and no palpitations Gastrointestinal: no abdominal pain, no nausea and no vomiting Physical Exam Physical Exam: GENERAL: WD/WN, confusion much improved, not in acute distress. HEENT: NC/AT, Pupils equal, round, and reactive to light. Oral mucosa moist. NECK: No JVD. No neck masses. CARDIOVASCULAR: S1, S2 heard, regular rate and rhythm, no murmur, no gallop. RESPIRATORY SYSTEM: Normal AP diameter. No accessory muscle use. + mild rhonchi, +cough w/ dep inspiration, No wheezing ABDOMEN: Soft, bowel sounds present, nontender. No distention. NEURO : Alert and awake, oriented to name only. Hard of hearing. Obeys simple commands and cooperative. Moves extremities. EXTREMITIES: No edema, no erythema. Results & Data Results & Data ([facility]) Vital Signs (Past 12 Hours) Vital Signs Temp Pulse Pulse Pulse Resp BP BP 01/27/21 07:33 36.7 C 68 16 106/60 01/27/21 07:06 74 01/27/21 03:58 36.9 C 76 20 105/61 01/26/21 23:58 36.9 C 74 22 118/57 L 01/26/21 23:25 73 Pulse Ox 01/27/21 07:33 92 01/27/21 07:06 01/27/21 03:58 92 01/26/21 23:58 92 01/26/21 23:25 Laboratory Results 01/27/21 01/27/21 Range/Units 06:46 06:46 WBC 5.56 (4.8-10.8) K/uL RBC 2.71 L (4.2-5.4) M/uL Hgb 7.9 L (12.0-16.0) g/dL Hct 25.1 L (37-47) % MCV 92.6 (80-100) fL MCH 29.2 (25-34) pg MCHC 31.5 L (32-36) g/dL RDW Std Deviation 54.1 H (36.4-46.3) fL RDW Coeff of Ruddy 16.0 H (11.5-14.5) % Plt Count 265 (130-400) K/uL MPV 8.5 (7.4-10.4) fL Sodium 139 (136-145) mmol/L Potassium 4.0 (3.5-5.1) mmol/L Chloride 108 H (98-107) mmol/L Carbon Dioxide 25 (21-32) mmol/L Anion Gap 6.0 (3-11) BUN 22 H (7-18) mg/dl Creatinine 1.17 (0.6-1.2) mg/dl Est Cr Clr Drug Dosing 34.4 ml/min Est GFR ( Amer) 53.9 ml/min Est GFR (Non-Af Amer) 46.5 ml/min BUN/Creatinine Ratio 19.0 (10-20) Glucose 88 (70-99) mg/dl Calcium 7.7 L (8.5-10.1) mg/dl Medications Administered Current Inpatient Medications Acetaminophen (Acetaminophen 325 Mg Tab) 650 mg PO Q4H PRN PRN Reason: Pain or Fever Stop: 02/23/21 05:06 Albuterol (Albuterol Hfa 8 Gm Inhaler) 2 puffs INH Q4 PRN PRN Reason: Shortness Of Breath Or Wheezing Stop: 02/23/21 05:06 Atorvastatin Calcium (Atorvastatin 40 Mg Tab) 40 mg PO QAM [facility] Stop: 02/23/21 08:59 Last Admin: 01/26/21 08:19 Dose: 40 mg Documented by: Guaifenesin (Guaifenesin 600 Mg Tabcr) 600 mg PO Q12 [facility] Stop: 02/23/21 08:59 Last Admin: 01/26/21 20:15 Dose: 600 mg Documented by: Pantoprazole Sodium 40 mg/ (Dextrose) 100 mls @ 20 mls/hr IV Q5H [facility] Stop: 02/23/21 02:15 Last Admin: 01/27/21 06:43 Dose: 8 mg/hr, 20 mls/hr Documented by: Ceftriaxone Sodium 1,000 mg/ (Dextrose) 50 mls @ 100 mls/hr IV Q24H [facility]; Protocol Stop: 02/01/21 02:59 Last Infusion: 01/27/21 02:59 Dose: Infused Documented by: Doxycycline Hyclate 100 mg/ (Dextrose) 110 mls @ 50 mls/hr IV Q12H [facility] Stop: 01/31/21 06:59 Last Admin: 01/27/21 06:08 Dose: 50 mls/hr Documented by: Levothyroxine Sodium (Levothyroxine Sodium 50 Mcg Tablet) [facility] Stop: 02/23/21 06:29 Last Admin: 01/27/21 06:08 Dose: 50 mcg Documented by: Lisinopril (Lisinopril 10 Mg Tab) [facility] Stop: 02/23/21 08:59 Last Admin: 01/26/21 09:20 Dose: Not Given Documented by: Loratadine (Loratadine 10 Mg Tab) 10 mg PO DAILY [facility] Stop: 02/23/21 08:59 Last Admin: 01/26/21 08:18 Dose: 10 mg Documented by: Nitroglycerin (Nitroglycerin Sl 0.4 Mg/Tab Tab) 0.4 mg SL UD PRN PRN Reason: Chest Pain Stop: 02/23/21 05:06 Ondansetron HCl (Ondansetron Inj 2 Mg/Ml 2 Ml Vial) 4 mg IV Q6H PRN PRN Reason: Nausea Stop: 02/23/21 05:06 Simethicone (Simethicone 80 Mg Chew) 80 mg PO Q6 PRN PRN Reason: bloating Stop: 02/23/21 05:18 (1) Anemia Anemia type: unspecified type Qualified Code(s): D64.9 - Anemia, unspecified (2) GI bleed GI bleed type/associated pathology: unspecified gastrointestinal hemorrhage type Qualified Code(s): K92.2 - Gastrointestinal hemorrhage, unspecified
--- NOTE | 2021-01-27 11:27 | Anesthesiology Consultation ---
Date of Service January 27, 2021 Assessment & Plan Chart Review Chart Review: Acceptable Risk for Surgery Consults Requested none History Surgery Operation Date: 01/27/21 16:10 Proposed Procedures p Esophagogastroduodenoscopy Dr Alek Gaston, Height/Weight Height: 5 ft 2 in Weight: 54.1 kg Allergies Allergy/AdvReac Type Severity Reaction Status Date / Time latex Allergy Unknown RASH Verified 01/24/21 01:52 No Known Drug Allergies Allergy Unknown . Verified 01/24/21 01:52 Medications Home Medications Medication Instructions Recorded Confirmed Last Taken atorvastatin 40 mg PO QAM 10/06/18 01/24/21 05/01/20 calcium carbonate-vitamin D3 1 tab PO QAM 10/06/18 01/24/21 05/01/20 [Os-Tobias 500 + D3] clopidogrel 75 mg PO QAM 10/06/18 01/24/21 05/01/20 levothyroxine 50 mcg PO QAM 10/06/18 01/24/21 05/01/20 lisinopril 10 mg PO QAM 10/06/18 01/24/21 05/01/20 omega 9-[id number]-fish oil [Fish Oil] 1 cap PO QAM 10/06/18 01/24/21 05/01/20 acetaminophen [Tylenol] 325 mg PO QID PRN 01/24/21 01/24/21 Unknown albuterol sulfate 2 inh INHALATION Q4 PRN 01/24/21 01/24/21 Unknown aspirin [Baby Aspirin] 81 mg PO DAILY 01/24/21 01/24/21 Unknown docusate sodium 100 mg PO BID 01/24/21 01/24/21 Unknown loratadine [Claritin] 10 mg PO DAILY 01/24/21 01/24/21 Unknown multivitamin 1 tab PO DAILY 01/24/21 01/24/21 Unknown simethicone 80 mg PO Q6 PRN 01/24/21 01/24/21 Unknown Active Medications Generic Name Dose Route Start Last Admin Trade Name Freq PRN Reason Stop Dose Admin Atorvastatin Calcium 40 mg 01/24/21 09:00 01/26/21 08:19 Atorvastatin 40 Mg Tab PO 02/23/21 08:59 40 mg QAM [facility] Administration Guaifenesin 600 mg 01/24/21 09:00 01/26/21 20:15 Guaifenesin 600 Mg Tabcr PO 02/23/21 08:59 600 mg Q12 [facility] Administration Pantoprazole Sodium 40 mg/ 100 mls @ 20 mls/hr 01/24/21 02:16 01/27/21 06:43 Dextrose IV 02/23/21 02:15 8 mg/hr Q5H [facility] 20 mls/hr Administration 8 MG/HR Ceftriaxone Sodium 1,000 mg/ 50 mls @ 100 mls/hr 01/25/21 03:00 01/27/21 02:59 Dextrose IV 02/01/21 02:59 Infused Q24H [facility] Infusion Protocol Doxycycline Hyclate 100 mg/ 110 mls @ 50 mls/hr 01/24/21 07:00 01/27/21 08:21 Dextrose IV 01/31/21 06:59 Infused Q12H [facility] Infusion Levothyroxine Sodium 50 mcg 01/24/21 06:30 01/27/21 06:08 Levothyroxine Sodium 50 Mcg Tablet PO 02/23/21 06:29 50 mcg DAILYBB [facility] Administration Lisinopril 10 mg 01/24/21 09:00 01/26/21 09:20 Lisinopril 10 Mg Tab PO 02/23/21 08:59 Not Given QAM [facility] Loratadine 10 mg 01/24/21 09:00 01/26/21 08:18 Loratadine 10 Mg Tab PO 02/23/21 08:59 10 mg DAILY [facility] Administration Past Medical History Medical History Adnexal mass CT [facility] 05/01/20 - 7.2 x 4.8 cm cystic L adnexal mass Cerebrovascular disease History of stroke and TIA's. 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0-31.0) L 01/24/21 01:10 Urine Color Yellow 01/24/21 Unknown Urine Appearance Clear (Clear) 01/24/21 Unknown Urine pH 5.0 (4.5-7.5) 01/24/21 Unknown Ur Specific [place] 1.009 (1.000-1.030) 01/24/21 Unknown Urine Protein Negative (Negative) 01/24/21 Unknown Urine Glucose (UA) Negative (Negative) 01/24/21 Unknown Urine Ketones Negative (Negative) 01/24/21 Unknown Urine Nitrite Negative (Negative) 01/24/21 Unknown Ur Leukocyte Esterase Negative (Negative) 01/24/21 Unknown Blood Type O Positive 01/24/21 02:33 Antibody Screen NEGATIVE 01/24/21 02:33 01/24/21 Unknown Gram Stain - Final Sputum, Expectorated Sputum Culture - Final Moderate normal mary. 01/24/21 01:56 Aerobic Blood Culture - Preliminary Blood No growth in Aerobic bottle after 48 hours. Anaerobic Blood Culture - Preliminary No growth in Anaerobic bottle after 48 hours. 01/24/21 02:33 Aerobic Blood Culture - Preliminary Blood Gram negative bacilli Anaerobic Blood Culture - Final
--- NOTE | 2021-01-27 11:32 | History & Physical Bridge Note ---
Date of Service January 27, 2021 History & Physical Bridge Note I have examined the patient, reviewed the History & Physical and in the interval since the performance of the History & Physical I have noted the following changes of clinical significance: no changes noted. The patient has a history of anemia with a recent drop in hemoglobin and hematocrit. She had been monitored over the weekend and the primary service and covering GI service from over the weekend wonder about an upper GI source. We are planning for upper endoscopy today for further evaluation. We have discussed the risks to include bleeding, infection, perforation, aspiration and need for follow-up studies.
[2021-01-27] MEDS ORDERED: ONDANSETRON INJ 2 MG/ML 2 ML VIAL ONE (11:42)
[2021-01-27] MEDS ORDERED: PROPOFOL IV EMULSION 10 MG/ML 20 ML VIAL IV ONE ×2 (11:42→11:43)
[2021-01-27] MEDS ORDERED: LIDOCAINE 2% 2 ML VIAL/AMP(20MG/ML) INFIL ONE (11:42)
--- NOTE | 2021-01-27 12:00 | Communication Note ---
Date of Service: January 27, 2021 The patient underwent upper endoscopy today. It was notable for a small hiatal hernia, irregular Z-line, and mild gastritis. There was no evidence of upper gastrointestinal bleeding. I would suggest further evaluation with an outpatient colonoscopy (patient without hematochezia). Perhaps the anemia is related to a nongastroenterology source such as gynecologic or urinary
--- NOTE | 2021-01-27 12:04 | GI REPORT ---
Patient Name: Melania Avilez Procedure Date: 01/27/2021 11:41 AM Date of : 1950 Admit Type: Inpatient Age: 70 Gender: Female Attending MD: Cameron Gaston DO Procedure: Upper GI endoscopy Providers: Cameron Gaston DO Referring MD: Hilario Romero Md Indications: Iron deficiency anemia Medicines: Monitored Anesthesia Care Complications: No immediate complications. Estimated blood loss: Minimal. Estimated Blood Loss: Estimated blood loss was minimal. Procedure: Pre-Anesthesia Assessment: - Prior to the procedure, a History and Physical was performed, and patient medications, allergies and sensitivities were reviewed. The patient's tolerance of previous anesthesia was reviewed. - The risks and benefits of the procedure and the sedation options and risks were discussed with the patient. All questions were answered and informed consent was obtained. - Patient identification and proposed procedure were verified prior to the procedure by the physician, the nurse and the splunk dashboard developer. The procedure was verified in the procedure room. - Pre-procedure physical examination revealed no contraindications to sedation. - ASA Grade Assessment: III - A patient with severe systemic disease. - After reviewing the risks and benefits, the patient was deemed in satisfactory condition to undergo the procedure. - The anesthesia plan was to use monitored anesthesia care (MAC). - Immediately prior to administration of medications, the patient was re-assessed for adequacy to receive sedatives. - The heart rate, respiratory rate, oxygen saturations, blood pressure, adequacy of pulmonary ventilation, and response to care were monitored throughout the procedure. - The physical status of the patient was re-assessed after the procedure. After obtaining informed consent, the endoscope was passed under direct vision. Throughout the procedure, the patient's blood pressure, pulse, and oxygen saturations were monitored continuously. The Endoscope was introduced through the mouth, and advanced to the third part of duodenum. The upper GI endoscopy was accomplished without difficulty. The patient tolerated the procedure well. Findings: The upper third of the esophagus and middle third of the esophagus were normal. The esophagus and gastroesophageal junction were examined with white light. There were esophageal mucosal changes suspicious for Segal's esophagus. These changes involved the mucosa at the upper extent of the gastric folds (38 cm from the incisors) extending to the Z-line (36 cm from the incisors). The maximum longitudinal extent of these esophageal mucosal changes was 2 cm in length. Biopsies were taken with a cold forceps for histology. The pathology specimen was placed into Bottle C. Estimated blood loss was minimal. A medium-sized hiatal hernia was found. The proximal extent of the gastric folds (end of tubular esophagus) was 38 cm from the incisors. The hiatal narrowing was 40 cm from the incisors. The Z-line was 36 cm from the incisors. The gastric fundus and gastric body were normal. Diffuse mild inflammation characterized by congestion (edema), erythema and granularity was found in the gastric antrum. Biopsies were taken with a cold forceps for histology. The pathology specimen was placed into Bottle B. Estimated blood loss was minimal. The examined duodenum was normal. Biopsies were taken with a cold forceps for histology. The pathology specimen was placed into Bottle A. Estimated blood loss was minimal. Impression: - Normal upper and middle esophagus. - Esophageal mucosal changes suspicious for Segal's esophagus. Biopsied. - Medium-sized hiatal hernia. - Normal gastric fundus and gastric body. - Gastritis. Biopsied. - Normal examined duodenum. Biopsied. Recommendation: - Return patient to [facility] for ongoing care. - Await pathology results. - Perform a colonoscopy at appointment to be scheduled (can be done as an outpatient). Cameron Gaston D.O. Cameron Gaston, 01/27/2021 12:04:10 PM This report has been signed electronically. Note Initiated On: 01/27/2021 11:41 AM Number of Addenda: 0 I attest to the content of the Intraoperative Record and orders documented therein, exceptions below {[id number]}
--- NOTE | 2021-01-27 12:47 | Anesthesiology Progress Note ---
Date of Service January 27, 2021 Anesthesia Post Procedure Vital Signs Vital Signs: Temp Pulse Pulse Pulse Resp BP BP 01/27/21 12:38 81 18 123/68 01/27/21 12:25 87 18 114/68 01/27/21 12:07 83 16 109/77 01/27/21 11:22 36.5 C 78 16 130/77 01/27/21 10:37 36.8 C 73 18 107/62 01/27/21 07:33 36.7 C 68 16 106/60 01/27/21 07:06 74 01/27/21 03:58 36.9 C 76 20 105/61 01/26/21 23:58 36.9 C 74 22 118/57 L 01/26/21 23:25 73 01/26/21 19:47 36.9 C 74 16 136/76 01/26/21 15:54 74 01/26/21 15:38 36.7 C 70 20 118/66 Pulse Ox 01/27/21 12:38 95 01/27/21 12:25 95 01/27/21 12:07 97 01/27/21 11:22 95 01/27/21 10:37 92 01/27/21 07:33 92 01/27/21 07:06 01/27/21 03:58 92 01/26/21 23:58 92 01/26/21 23:25 01/26/21 19:47 98 01/26/21 15:54 01/26/21 15:38 99 Transfer of Care Handoff Completed per policy Notes Mental Status: alert / awake / arousable and participated in evaluation Patient Amnestic to Procedure: Yes Nausea / Vomiting: adequately controlled Pain: adequately controlled Airway Patency, RR, SpO2: stable & adequate BP & HR: stable & adequate Hydration State: stable & adequate Anesthetic Complications: no major complications apparent
[2021-01-27] MEDS: ATORVASTATIN 40 MG TAB PO SCH (13:19)
[2021-01-27] MEDS: LORATADINE 10 MG TAB PO SCH (13:19)
[2021-01-27] MEDS: guaiFENesin 600 MG TABCR PO SCH ×2 (13:19→22:07)
[2021-01-27] MEDS: lisinopril 10 MG TAB PO SCH (13:19)
[2021-01-28] MEDS: PANTOprazole 40 MG in DEXTROSE 5% 100 ML IV SCH ×3 (01:30→13:09)
[2021-01-28] MEDS: cefTRIAXone SODIUM 1,000 MG in DEXTROSE 5% 50 ML IV SCH (02:57)
[2021-01-28 05:54] LABS: Hematocrit (blood only) 25.6 % (37-47); Hemoglobin 8.1 g/dL (12.0-16.0); Mean Corpuscular Hemoglobin 28.6 pg (25-34); Mean Corpuscular Hgb Conc 31.6 g/dL (32-36); Mean Corpuscular Volume 90.5 fL (80-100); Platelet Count 252 K/uL (130-400); RDW Coefficient of Variation 15.6 % (11.5-14.5); RDW Standard Deviation 52.2 fL (36.4-46.3); Red Blood Count 2.83 M/uL (4.2-5.4); White Blood Count 5.71 K/uL (4.8-10.8)
[2021-01-28] MEDS: LEVOTHYROXINE SODIUM 50 MCG TABLET PO SCH (05:59)
[2021-01-28] MEDS: DOXYCYCLINE HYCLATE 100 MG in DEXTROSE 5% 100 ML IV SCH ×2 (06:00→18:00)
[2021-01-28 06:29] LABS: Calcium 8.5 mg/dl (8.5-10.1); Creatinine Clr Calc Pharmacy 32.7 ml/min; Est GFR (African American) 50.7 ml/min; Est GFR (Non-African American) 43.8 ml/min; Magnesium 2.3 mg/dl (1.8-2.4); Potassium 4.2 mmol/L (3.5-5.1)
[2021-01-28] MEDS: LORATADINE 10 MG TAB PO SCH (08:39)
[2021-01-28] MEDS: guaiFENesin 600 MG TABCR PO SCH ×2 (08:39→20:26)
[2021-01-28] MEDS: ATORVASTATIN 40 MG TAB PO SCH (08:39)
[2021-01-28] MEDS: lisinopril 10 MG TAB PO SCH (08:39)
[2021-01-28] MEDS: ASPIRIN 81 MG ECTAB PO SCH (14:19)
--- NOTE | 2021-01-28 16:48 | Hospitalist Progress Note ---
Date of Service January 28, 2021 Assessment & Plan (1) Anemia: (2) GI bleed: Gastrointestinal bleed: Acute blood loss anemia. Hemoccult was positive in the ER with black stools. Hemoglobin 5.8 on admission. Seems hemoglobin was 11.5 in April 2020. As per outpatient records, in May 2020, it was 9.6. Transfused 2 units of PRBCs during the hospital course EGD on 01/27 showed a small hiatal hernia, irregular Z-line, and mild gastritis. There was no evidence of upper gastrointestinal bleeding. GI recommended outpatient colonoscopy for further eval Case discussed with GI dr. Gaston about to resume antiplatelet therapy- No contraindication to resume antiplatelet. Hgb 8.1 today IV PPI discontinued and transition to PO PPI Continue monitor CBC (3) Acute bronchiolitis: Ongoing cough: It is going on for months now. Chest x-ray looks okay. CT chest preliminary report bronchiolitis. Currently on Rocephin and Doxycycline Obtain sputum cultx Guaifenesin, flutter valve, incentive spirometry Per son,patient was also started on allergy medication recently because of her cough Acute CVA/acute left caudate infarction History of cerebrovascular accident Present on admission with confusion MRI of the brain shows acute left caudate infarction Carotid ultrasounds also obtained, no significant stenosis Echocardiogram shows a pericardial effusion without tamponade, mild LA enlargement, calcific mitral apparatus, moderate calcific aortic valve with mild stenosis Consider telemetry monitor as an outpatient, although this infarct clearly appears to be a small vessel Patient should also follow-up with neurology for dementia/? Alzheimer's on aspirin and Plavix and statin that were on hold Spoke with GI and said no contraincation to restart antiplatet since EGD showed no active bleeding Aspirin resumed today since GI said no contraindication Will resume plavix in am Follow up with Neurology outpatient Pericardial Effusion Echocardiogram showed a pericardial effusion without tamponade, mild LA enlargement, calcific mitral apparatus, moderate calcific aortic valve with mild stenosis Will need outpatient ECHO follow up to monitor the pericardial effusion Will discuss finding with cardiology History of hypertension: BP stable Continue lisinopril. Continue monitor blood pressure. History of hypothyroidism Continue Synthroid. 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 TRISH on Chronic kidney disease stage III: Creatinine 1.1 on admission. Creatinine 1.2 today Continue monitor BMP DVT prophylaxis: On SCD due to GI bleed/Anemia Disposition: Closely monitor in the tele floor. Code status: Full code for now, But husbands wants to be called. Social service to help with discharge planning. Admission and Anticipated Discharge Date Admission Date: January 24, 2021 Subjective Patient seen in follow up for confusion and anemia, GI bleed, cough Sitting up in chair with no acute distress She ate all her meals, she said that she was hungry Denies any complaints, denies fevers chills, abdominal pain, nausea, vomiting Review of Systems Review of Systems: All systems reviewed & are unremarkable except as noted in Subjective Physical Exam Physical Exam: General- No acute distress Head- atraumatic Eyes- PERRL, EOMI, ENT- oropharynx clear Neck- supple, no JVD Lungs- No wheezing and rales Heart- regular rhythm; no murmur Abdomen- normal bowel sounds, soft, nontender Extremities- no calf tenderness Neuro- alert, oriented x 3; PERRL, EOMI; no facial palsy; no dysarthria Skin- warm & dry Results & Data Results & [facility] ([facility]) Vital Signs (Past 12 Hours) Vital Signs Temp Pulse Pulse Resp BP Pulse Ox 01/28/21 15:50 36.4 C L 93 H 18 98/51 L 01/28/21 15:11 84 01/28/21 10:59 36.7 C 82 22 109/53 L 92 01/28/21 07:56 36.5 C 83 20 121/66 95 01/28/21 07:36 73 (1) GI bleed GI bleed type/associated pathology: unspecified gastrointestinal hemorrhage type Qualified Code(s): K92.2 - Gastrointestinal hemorrhage, unspecified (2) Anemia Anemia type: unspecified type Qualified Code(s): D64.9 - Anemia, unspecified
[2021-01-29] MEDS: cefTRIAXone SODIUM 1,000 MG in DEXTROSE 5% 50 ML IV SCH (03:34)
[2021-01-29] MEDS: LEVOTHYROXINE SODIUM 50 MCG TABLET PO SCH (05:50)
[2021-01-29 06:12] LABS: Hematocrit (blood only) 26.4 % (37-47); Hemoglobin 8.2 g/dL (12.0-16.0); Mean Corpuscular Hemoglobin 28.8 pg (25-34); Mean Corpuscular Hgb Conc 31.1 g/dL (32-36); Mean Corpuscular Volume 92.6 fL (80-100); Mean Platelet Volume 8.4 fL (7.4-10.4); Platelet Count 298 K/uL (130-400); RDW Coefficient of Variation 15.5 % (11.5-14.5); RDW Standard Deviation 52.4 fL (36.4-46.3); Red Blood Count 2.85 M/uL (4.2-5.4); White Blood Count 6.28 K/uL (4.8-10.8)
[2021-01-29] MEDS: DOXYCYCLINE HYCLATE 100 MG in DEXTROSE 5% 100 ML IV SCH (06:30)
--- NOTE | 2021-01-29 06:44 | Communication Note ---
Date of Service: January 29, 2021 Patient with small run of SVT in a.m. serm crea 1.23 (01/28) ARF Serum chemistry now Monitor creatinine response to IVF Hold ABY inhibitor until serum chemistry back.
[2021-01-29 07:01] LABS: BUN Creatinine Ratio 29.9 (10-20); Calcium 8.7 mg/dl (8.5-10.1); Creatinine Clr Calc Pharmacy 30.9 ml/min; Est GFR (African American) 47.5 ml/min; Potassium 4.5 mmol/L (3.5-5.1)
[2021-01-29] MEDS ORDERED: SODIUM CHLORIDE 0.9% 1000ML 1,000 ML IV ONE (07:10)
[2021-01-29] MEDS: ASPIRIN 81 MG ECTAB PO SCH (08:06)
[2021-01-29] MEDS: LORATADINE 10 MG TAB PO SCH (08:06)
[2021-01-29] MEDS: ATORVASTATIN 40 MG TAB PO SCH (08:07)
[2021-01-29] MEDS: guaiFENesin 600 MG TABCR PO SCH (08:07)
[2021-01-29] MEDS ORDERED: CLOPIDOGREL BISULFATE 75 MG TAB PO SCH (09:00)
[2021-01-29] MEDS ORDERED: PANTOprazole 40 MG TAB PO SCH (09:00)
--- NOTE | 2021-01-29 13:14 | Hospitalist Progress Note ---
Date of Service January 29, 2021 Assessment & Plan (1) Anemia: (2) GI bleed: Gastrointestinal bleed: Acute blood loss anemia. Hemoccult was positive in the ER with black stools. Hemoglobin 5.8 on admission. Seems hemoglobin was 11.5 in April 2020. As per outpatient records, in May 2020, it was 9.6. Transfused 2 units of PRBCs during the hospital course EGD on 01/27 showed a small hiatal hernia, irregular Z-line, and mild gastritis. There was no evidence of upper gastrointestinal bleeding. GI recommended outpatient colonoscopy for further eval Case discussed with GI dr. Gaston about to resume antiplatelet therapy- No contraindication to resume antiplatelet. Hgb 8.2 today IV PPI discontinued and transition to PO PPI Continue monitor CBC (3) Acute bronchiolitis: Ongoing cough: It is going on for months now. Chest x-ray looks okay. CT chest preliminary report bronchiolitis. Currently on Rocephin and Doxycycline started on 01/24 Obtain sputum cultx Guaifenesin, flutter valve, incentive spirometry Per son,patient was also started on allergy medication recently because of her cough Will discontinue Acute CVA/acute left caudate infarction History of cerebrovascular accident Present on admission with confusion MRI of the brain shows acute left caudate infarction Carotid ultrasounds also obtained, no significant stenosis Echocardiogram shows a pericardial effusion without tamponade, mild LA enlargement, calcific mitral apparatus, moderate calcific aortic valve with mild stenosis Consider patient monitor as an outpatient, although this infarct clearly appears to be a small vessel Patient should also follow-up with neurology for dementia/? Alzheimer's on aspirin and Plavix and statin that were on hold Spoke with GI and said no contraindication to restart antiplatelet since EGD showed no active bleeding Aspirin resumed today since GI said no contraindication Will resume Plavix in am Follow up with Neurology outpatient Pericardial Effusion Echocardiogram showed a small pericardial effusion without tamponade, mild LA enlargement, calcific mitral apparatus, moderate calcific aortic valve with mild stenosis ECHO discussed with cardio and no additional testing needed since pt is asymptomatic If pt develops any chest pain, cardiology recommended to repeat the echo to eval for the pericardial effusion History of hypertension: BP stable Lisinopril hold today due to bump on creatinine Continue monitor blood pressure. History of hypothyroidism Continue Synthroid. 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 TRISH on Chronic kidney disease stage III: Creatinine 1.1 on admission. Creatinine 1.3 today Continue monitor BMP DVT prophylaxis: On SCD due to GI bleed/Anemia Disposition: Closely monitor in the tele floor. Code status: Full code for now, But husbands wants to be called. Disposition Discharge home today Admission and Anticipated Discharge Date Admission Date: January 24, 2021 Subjective Patient seen in follow up for confusion and anemia, GI bleed, cough Sitting up in chair with no acute distress Pt said that she feels fine She ate all her lunch She would like to go home today telemonitor showed a brief episode of SVT- asymptomatic Denies any complaints, denies fevers chills, abdominal pain, nausea, vomiting Review of Systems Review of Systems: All systems reviewed & are unremarkable except as noted in Subjective Physical Exam Physical Exam: General- No acute distress Head- atraumatic Eyes- PERRL, EOMI, ENT- oropharynx clear Neck- supple, no JVD Lungs- No wheezing and rales Heart- regular rhythm; no murmur Abdomen- normal bowel sounds, soft, nontender Extremities- no calf tenderness Neuro- alert, oriented x 3; PERRL, EOMI; no facial palsy; no dysarthria Skin- warm & dry Results & Data Results & Data ([facility]) Vital Signs (Past 12 Hours) Vital Signs Temp Pulse Pulse Pulse Resp BP Pulse Ox 01/29/21 11:43 36.5 C 90 22 105/60 95 01/29/21 08:12 36.7 C 76 20 111/61 93 01/29/21 07:37 72 01/29/21 03:30 36.8 C 83 20 104/54 L 90 (1) GI bleed GI bleed type/associated pathology: unspecified gastrointestinal hemorrhage type Qualified Code(s): K92.2 - Gastrointestinal hemorrhage, unspecified (2) Anemia Anemia type: unspecified type Qualified Code(s): D64.9 - Anemia, unspecified
--- NOTE | 2021-02-01 09:23 | Discharge Summary ---
Date of Service January 29, 2021 Admission HPI Per Admitting Provider CHIEF COMPLAINT: Confusion. 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 As per the [facility] notes, she saw PCP on 12/12/2020. At that time, she had a chronic cough and she was falling frequently, worsening memory. She did not recognize people as the EPIC notes they were looking for assisted living .As per last 2 days the confusion got worse and he sent her to the hospital. He states that she did not complain of any pain, did not notice any blood in the stools, is having a lot of cough. No fevers. Eating okay, swallowing okay. No nausea, no vomiting. The patient in the ER is somewhat drowsy but says she hurts, could tell her name, could not get much history from the patient. Hemodynamically stable. Her labs showed hemoglobin of 5.8 and her Hemoccult was positive. SARS-CoV-2 PCR negative. As per the EPIC, she had COVID vaccine. Initially was not answering, so called the son to get blood consent. Admission Exam Per Admitting Provider GENERAL: The patient is grossly confused, does not seem to be in acute distress. VITAL SIGNS: Temperature 36.3, pulse 90, respiratory rate 16, blood pressure 110/56, oxygen 99% on 2 liters. HEENT: Pupils equal, round, and reactive to light. Oral mucosa moist. NECK: No JVD. No neck masses. CARDIOVASCULAR: S1, S2 heard, regular rate and rhythm, no murmur, no gallop. RESPIRATORY SYSTEM: Normal AP diameter. No accessory muscle use. No wheezing, no crackles. ABDOMEN: Soft, bowel sounds present, nontender. No distention. CENTRAL NERVOUS SYSTEM: Alert and awake, oriented to name only. Hard of he aring. Seems to be obeying simple commands. Moves extremities. EXTREMITIES: No edema, no erythema. Principal Diagnosis (1) Anemia: (2) GI bleed: (3) Acute bronchiolitis: (4) Acute CVA/acute left caudate infarction (5) Pericardial Effusion (6) History of hypertension: (7) History of hypothyroidism (8) TRISH on Chronic kidney disease stage III: Discharge Exam General- No acute distress Head- atraumatic Eyes- PERRL, EOMI, ENT- oropharynx clear Neck- supple, no JVD Lungs- No wheezing and rales Heart- regular rhythm; no murmur Abdomen- normal bowel sounds, soft, nontender Extremities- no calf tenderness Neuro- alert, oriented x 3; PERRL, EOMI; no facial palsy; no dysarthria Skin- warm & dry Discharge Data Allergies Allergy/AdvReac Type Severity Reaction Status Date / Time latex Allergy Unknown RASH Verified 01/24/21 01:52 No Known Drug Allergies Allergy Unknown . Verified 01/24/21 01:52 Consultations 01/24/21 02:29 ED Decision to Admit Stat 01/24/21 08:00 Consult Gastroenterology Routine Consult Neurology Routine Procedures Performed Operation Date: 01/27/21 16:10 Actual Procedures p EGD Biopsy Cytology - Cameron Gaston DO Ordered Studies 01/24/21 01:47 CT head/brain wo con Urgent 01/24/21 03:33 CT chest diagnostic wo con Urgent 01/24/21 11:46 MR brain wo con Routine 01/24/21 19:03 US carotid doppler BI Routine SINGLE VIEW CHEST CLINICAL HISTORY: Dyspnea. FINDINGS: An AP, portable, upright chest radiograph is compared to chest x-ray and chest CT dated 01/24/2021. The heart is enlarged noting atherosclerotic calcification of the thoracic aorta. The pulmonary vasculature is noncongested. There are calcified hilar nodes. Chronic interstitial thickening and nodularity is similar to previous. Scarring/atelectasis is seen at the lung bases. No large pleural effusion or pneumothorax is seen. The skeletal structures are osteopenic. The bony thorax is grossly intact. IMPRESSION: 1. Cardiomegaly with no acute cardiopulmonary abnormality. 2. Chronic changes as above which were better assessed on yesterday's chest CT. ACT 112: Negative or not required by law. Electronically signed by: Jim Cabrera M.D. 01/25/2021 11:51 AM Dictated: 01/25/21 1149Transcribed: 01/25/21 1149 CAROTID ARTERY ULTRASOUND CLINICAL HISTORY: Cerebrovascular accident. COMPARISON STUDY: Carotid ultrasound September 04, 2017. TECHNIQUE: Real-time, grayscale, and color Doppler sonography of the carotid and vertebral arteries was performed. Images were viewed in the transverse and longitudinal planes. FINDINGS: There is mild to moderate atherosclerotic plaque. Velocity measurements are listed below. COMMON CAROTID PEAK SYSTOLIC VELOCITY (CM/S): RIGHT 61 LEFT 79 ICA PEAK SYSTOLIC VELOCITY (CM/S): RIGHT 76 LEFT 75 Systolic ratios between the internal to common carotid arteries were normal. Antegrade flow is seen in the vertebral arteries. The external carotid arteries are patent. Blood pressure in the right arm measured 122/63. Blood pressure in the left arm measured 111/62. IMPRESSION: No evidence for a hemodynamically significant stenosis. ACT 112: Negative or not required by law. Electronically signed by: Ric Mancera M.D. 01/25/2021 9:23 AM Dictated: 01/25/21921Transcribed: 01/25/21921 MRI OF THE BRAIN WITHOUT CONTRAST CLINICAL HISTORY: change in ms, aphasia COMPARISON STUDY: MRI of the brain September 04, 2017. Head CT performed earlier today. TECHNIQUE: Utilizing a 1.5 Jodi magnet and dedicated coil, multiplanar, multiecho imaging of the brain was performed without IV contrast. FINDINGS: This exam is mildly compromised by motion artifact. There is a 5 mm hyperintense focus within the left caudate nucleus on axial diffusion-weighted sequence image 14 of 24. This may be slightly hypointense on the ADC map. This could reflect a small acute to subacute infarct. There is an 8 mm hyperintense focus within the right aspect of the genu of the corpus callosum on axial image 15. This is unlikely to reflect acute infarct. Ventricular system is stable. Basilar cisterns are patent. There are no extra-axial collections. An old 2.5 cm periventricular left parietal lobe infarct is unchanged. Extensive white matter T2 hyperintense foci suggest small vessel disease. Calvarial heterogeneity is unchanged since MRI of September 04, 2017. No acute intracranial hemorrhage, midline shift or mass effect is present. Fluid within the left mastoid air cells is again noted. This was shown on previous MRI. 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 IMPRESSION: 1. 5 mm hyperintense focus within left caudate nucleus on diffusion-weighted sequence. This could reflect a small acute to subacute infarct. 8 mm hyperintense focus within the genu of the corpus callosum, favor artifact. 2. No acute intracranial hemorrhage or mass effect. 3. Old left parietal lobe infarct and extensive small vessel disease. 4. Exam mildly compromised by motion artifact. ACT 112: Negative or not required by law. Electronically signed by: Ric Mancera M.D. 01/24/2021 5:15 PM Dictated: 01/24/21 1704Transcribed: 01/24/211703 CT OF THE CHEST WITHOUT IV CONTRAST CLINICAL HISTORY: Cough. COMPARISON STUDY: Chest CT May 01, 2020. TECHNIQUE: Axial images of the chest were obtained without IV contrast. Images were reviewed in the axial, sagittal, and coronal planes. IV contrast was not administered for this examination. Automated exposure control was utilized for the study. A dose lowering technique was utilized adhering to the principles of ALARA. FINDINGS: Prominent AP window lymph node is unchanged. There are calcified mediastinal and bilateral hilar lymph nodes. Note is made of mild cardiomegaly with a trace pericardial effusion. Lungs are suboptimally assessed due to respiratory motion. There is no pneumothorax. Trace left pleural effusion is noted. Bronchial wall thickening is noted, most evident within the right lower lobe. Scattered tree-in-bud nodules are similar to chest CT of May 01, 2020. Note is made of a 3.8 x 2 cm elliptical hypodense focus within the right major fissure. This represents fissural fluid. A 7 mm right upper lobe nodule on image 92 of 281 is unchanged since chest CT of September 08, 2011. This is benign. There are secretions within the trachea. There are also mild secretions within the proximal left mainstem bronchus. No acute fracture or suspicious lesion is identified within visualized skeletal structures. Upper abdomen is unremarkable on this unenhanced exam. IMPRESSION: 1. No significant change in scattered tree-in-bud nodules within the lungs which suggest a chronic infectious process. 2. Diffuse bronchial wall thickening. Secretions within the airways, as above. 3. 3.8 x 2 cm elliptical hypodense focus within the right major fissure consistent with fissural fluid. 4. Mild cardiomegaly. Trace pericardial effusion. ACT 112: Negative or not required by law. Electronically signed by: Ric Mancera M.D. 01/24/2021 7:44 AM Dictated: 01/24/21 0737Transcribed: 01/24/21736 CT OF THE HEAD WITHOUT CONTRAST CLINICAL HISTORY: Altered mental status. COMPARISON STUDY: Head CT April 2020. CT DOSE: 2087.72 mGy.cm TECHNIQUE: Helical axial images of the head were obtained without IV contrast. Automated exposure control was utilized for the study. A dose lowering technique was utilized adhering to the principles of ALARA. FINDINGS: No acute intracranial hemorrhage, midline shift or mass effect is present. The ventricular system is stable. Basilar cisterns are patent. There are no extra-axial collections. A 1.1 cm extra axial hyperdense lesion along the left aspect of the anterior falx is similar to prior exam. This represents a meningioma. White matter hypodensity suggests small vessel disease. There are no findings to suggest acute dural sinus thrombosis or acute territorial infarct. An old left parietal infarct is again noted. The appearance of the brain is unchanged. Postoperative findings within the sinuses are noted. There is mucosal thickening of the right maxillary sinus. Small amount of fluid within left mastoid air cells is unchanged. Calvarial lucencies are unchanged. IMPRESSION: No acute intracranial findings. No significant change in appearance of the brain. ACT 112: Negative or not required by law. Electronically signed by: Ric Mancera M.D. 01/24/2021 7:32 AM Dictated: 01/24/21727Transcribed: 01/24/21727 XR chest 1V portable CLINICAL HISTORY: SEPSIS COMPARISON STUDY: Chest radiograph and chest CT May 01, 2020. FINDINGS: Cardiomegaly is unchanged. There is no pneumothorax or pleural effusion. There is no evidence for pulmonary edema. Mild bibasilar opacities are present. IMPRESSION: Mild bibasilar opacities which could reflect an infectious process or atelectasis. Radiographic follow up is recommended. ACT 112: Negative or not required by law. Electronically signed by: Ric Mancera M.D. 01/24/2021 7:34 AM Dictated: 01/24/2132Transcribed: 01/24/21731 Hospital Course (1) Anemia: (2) GI bleed: Gastrointestinal bleed: Acute blood loss anemia. Hemoccult was positive in the ER with black stools. Hemoglobin 5.8 on admission. Seems hemoglobin was 11.5 in April 2020. As per outpatient records, in May 2020, it was 9.6. Transfused 2 units of PRBCs during the hospital course EGD on 01/27 showed a small hiatal hernia, irregular Z-line, and mild gastritis. There was no evidence of upper gastrointestinal bleeding. GI recommended outpatient colonoscopy for further eval Case discussed with GI dr. Gaston about to resume antiplatelet therapy- No contraindication to resume antiplatelet. Hgb 8.2 today IV PPI discontinued and transition to PO PPI Continue monitor CBC (3) Acute bronchiolitis: Ongoing cough: It is going on for months now. Chest x-ray looks okay. CT chest preliminary report bronchiolitis. Currently on Rocephin and Doxycycline started on 01/24 Obtain sputum cultx Guaifenesin, flutter valve, incentive spirometry Per son,patient was also started on allergy medication recently because of her cough Will discontinue Acute CVA/acute left caudate infarction History of cerebrovascular accident Present on admission with confusion MRI of the brain shows acute left caudate infarction Carotid ultrasounds also obtained, no significant stenosis Echocardiogram shows a pericardial effusion without tamponade, mild LA enlargement, calcific mitral apparatus, moderate calcific aortic valve with mild stenosis Consider ekg monitor as an outpatient, although this infarct clearly appears to be a small vessel Patient should also follow-up with neurology for dementia/? Alzheimer's on aspirin and Plavix and statin that were on hold Spoke with GI and said no contraindication to restart antiplatelet since EGD showed no active bleeding Aspirin resumed today since GI said no contraindication Will resume Plavix in am Follow up with Neurology outpatient Pericardial Effusion Echocardiogram showed a small pericardial effusion without tamponade, mild LA enlargement, calcific mitral apparatus, moderate calcific aortic valve with mild stenosis ECHO discussed with cardio and no additional testing needed since pt is asymptomatic If pt develops any chest pain, cardiology recommended to repeat the echo to eval for the pericardial effusion History of hypertension: BP stable Lisinopril hold today due to bump on creatinine Continue monitor blood pressure. History of hypothyroidism Continue Synthroid. 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 TRISH on Chronic kidney disease stage III: Creatinine 1.1 on admission. Creatinine 1.3 today Continue monitor BMP DVT prophylaxis: On SCD due to GI bleed/Anemia Disposition: Closely monitor in the tele floor. Code status: Full code for now, But husbands wants to be called. Disposition Discharge home today Total Time Total Time Spent Total Time Spent (In Minutes): 35 minutes Total Time Includes: Examination of the Patient, Discharge Planning, Medication Reconciliation, Communication With Other Providers and Other Discharge Plan Discharge Items Patient Disposition: Home - Self-Care Reason For Visit: CONFUSION, COUGH Discharge Diagnosis: (1) Anemia: (2) GI bleed: (3) Acute bronchiolitis: (4) Acute CVA/acute left caudate infarction (5) Pericardial Effusion (6) History of hypertension: (7) History of hypothyroidism (8) TRISH on Chronic kidney disease stage III: Activity: Resume your previous activity Non-emergency contact: Primary Care Provider, Home Health Care Case Manager and Neurologist Call non-emergency contact if: you have any medication questions Follow-up/Referrals: Max Pendleton DO [Primary Care Provider] - 02/04/21 11:00 am (Date & Time 02/04/2021 11:00 AM Provider Max Pendleton DO Department [facility] ) Diet: Heart Healthy Addtl Attending Provider Instructions: Follow up with your primary care provider Dr. Pendleton on 02/04/2021 @ 11:00 AM at the [facility] Follow up with Neurology Dr. Garcia or her colleague in 3 to 4 weeks Follow up with gastroenterology for outpatient colonoscopy if hemoglobin continues to drop for further evaluation Check CBC in 1 week to monitor your hemoglobin Check BMP in 1 week to monitor your kidney function You will need to arrange for heart monitor ( either the Neurologist or your provider can arrange for that) If your develop any chest discomfort, please seek medical attention Continue monitor your blood pressure Hold the lisinopril for now (Ok to resume on Tuesday if your blood pressure elevates) Fall precaution Please avoid any other NSAID such as motrin, aleve, naproxen, advil, Ibuprofen, .. due to high risk of bleeding Pending Studies at Discharge: No Stand-Alone Forms: My irisnote, Smoking Cessation Medications and DC Order Prescriptions: New guaifenesin [Mucinex] 600 mg Tablet Extended Release 12hr 600 mg PO Q12 Qty: 14 RF: 0 pantoprazole 40 mg Tablet,Delayed Release (Dr/Ec) 40 mg PO QAM Qty: 30 RF: 0 Continued atorvastatin 40 mg tablet 40 mg PO QAM RF: 0 clopidogrel 75 mg tablet 75 mg PO QAM RF: 0 levothyroxine 50 mcg tablet 50 mcg PO QAM RF: 0 lisinopril 10 mg tablet 10 mg PO QAM RF: 0 omega 0-gao-vuk-fish oil [Fish Oil] 1,000 mg (120 mg-180 mg) Capsule 1 cap PO QAM RF: 0 calcium carbonate-vitamin D3 [Os-Tobias 500 + D3] 500mg (1,250mg) -600 unit Tablet 1 tab PO QAM RF: 0 multivitamin Tablet 1 tab PO DAILY RF: 0 acetaminophen [Tylenol] 325 mg Tablet 325 mg PO QID PRN (Reason: Pain) RF: 0 aspirin 81 mg Tablet,Chewable 81 mg PO DAILY RF: 0 albuterol sulfate 90 mcg/actuation Hfa Aerosol Inhaler 2 inh INHALATION Q4 PRN (Reason: Shortness Of Breath Or Wheezing) RF: 0 docusate sodium 100 mg Tablet 100 mg PO BID RF: 0 loratadine [Claritin] 10 mg Tablet 10 mg PO DAILY RF: 0 simethicone 80 mg Tablet 80 mg PO Q6 PRN (Reason: bloating) RF: 0 Discharge Orders: Discharge Order (Routine); Ordered 01/29/21 Ordered By: Matthew Mae Admission Data Admit Date/Time: 01/24/21 03:33 Attending Provider: Matthew Mae Admit Provider: Fernandez Nunez Primary Care Provider: Max Pendleton Other Providers: Fernandez Nunez ; Cameron Gaston ; Estrella Rivera ; Gildardo Ireland ; Estrella Garcia ; Zaid Das ; Hilario Romero Other Interventions: Discharge Summary Assessment (RN) Last Done: 01/29/21 14:35
--- NOTE | 2021-02-02 19:24 | Communication Note ---
Date of Service: February 02, 2021 Blood culture done in the ER on 01/24/21 grew gram negative bacilli. I called the lab for confirmation. As per lab staff only 1 bottle turned positive. Waiting for sensitivity. I called Ms Avilez to check on her to see if she is having any fever and to discuss the result with her, unfortunately no one answered. I left a voicemail that I will try to call back tomorrow. Will follow the blood cx sensitivity. If pt is afebrile, positive blood cx could be contaminated. If unable to reach the pt tomorrow, I will notify the PCP since pt has a follow up appointment with primary care provider Dr. Pendleton on 02/04/2021 @ 11:00 AM at the [facility]. MD Tu
--- NOTE | 2021-02-03 20:00 | Communication Note ---
Date of Service: February 03, 2021 I called patient again to discuss the result of her blood culture, unfortunately no one answered. I Left a voicemail. Since pt has a follow up with PCP tomorrow, I will forward the result to the PCP that he can discuss it with the patient at the next appt. MD Tu
== END 2021-01-29 15:15 | disposition home or self-care (01) | DRG 377 ==
LOC: ED 01:26 → SUATTDRO 03:33 → 2E 03:33

== ENCOUNTER 2021-02-04 22:04 | Inpatient (IN) ==
--- NOTE | 2021-02-04 23:00 | Emergency Department Note ---
History of Present Illness General Chief complaint: Abnormal Labs/Diagnostic Testing Stated complaint: Abnormal Labs, altered mental status Time Seen by Provider: 02/04/21 22:37 Source: family Mode of arrival: EMS Limitations: altered mental status History of Present Illness Provider complaint: Low hemoglobin on outpatient labs, lethargic This is a 70-year-old female presents emergency department with family at [facility] due to concern for outpatient labs today which showed a low hemoglobin and increased lethargy. Patient had recently been admitted after being found to have anemia and underwent endoscopy which showed an ulcer with active bleeding. Patient was transfused while admitted. Son at bedside states patient was just discharged home last Tuesday. He states since the recent hospitalization the patient and her have moved in with him. He states last night she seemed "out of it" and that he was unsure if she was just tired. States she slept all night and seemed back to normal again today. Then this evening he was not sure if she was fatigued or dizzy or altered again, however they received a phone call from the PCP regarding the hemoglobin and were advised to come to the emergency room. He states she does take aspirin and Plavix due to prior history of strokes. He denies noting that she was flushed or diaphoretic. Denies that she felt warm. He states last night he did help in taking off her diaper and did not notice any obvious blood or black stools. He states today she is only answered with "praise the Lord". She does still open her eyes and look around and responds to painful stimuli. She is otherwise not been able to provide any additional history. During my exam, she did deny any abdominal pain or trouble breathing. She was otherwise very bothered by the attempts at IV placement. Pt seen during a time of high acuity and national emergency pandemic while wearing PPE. Home Medications Medication Instructions Recorded Confirmed Type atorvastatin 40 mg PO QAM 10/06/18 02/04/21 History calcium carbonate-vitamin D3 1 tab PO QAM 10/06/18 02/04/21 History [Os-Tobias 500 + D3] clopidogrel 75 mg PO QAM 10/06/18 02/04/21 History levothyroxine 50 mcg PO QAM 10/06/18 02/04/21 History lisinopril 10 mg PO QAM 10/06/18 02/04/21 History omega 4-hol-csd-fish oil [Fish Oil] 1 cap PO QAM 10/06/18 02/04/21 History acetaminophen [Tylenol] 325 mg PO QID PRN 01/24/21 02/04/21 History albuterol sulfate 2 inh INHALATION Q4 PRN 01/24/21 02/04/21 History aspirin 81 mg PO DAILY 01/24/21 02/04/21 History docusate sodium 100 mg PO BID 01/24/21 02/04/21 History loratadine [Claritin] 10 mg PO DAILY 01/24/21 02/04/21 History multivitamin 1 tab PO DAILY 01/24/21 02/04/21 History simethicone 80 mg PO Q6 PRN 01/24/21 02/04/21 History guaifenesin [Mucinex] 600 mg PO Q12 #14 tab 01/29/21 02/04/21 Rx pantoprazole 40 mg PO QAM #30 tab 01/29/21 02/04/21 Rx Allergies Allergy/AdvReac Type Severity Reaction Status Date / Time latex Allergy Unknown RASH Verified 02/04/21 22:33 No Known Drug Allergies Allergy Unknown . 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 History of sinus surgery Status post bilateral hip replacements Family History Other Family history unobtainable due to patient's condition Social History Smoking Status: Unknown if ever smoked Second Hand Exposure: No; Preferred Language: Ugandan Communication Ability: Impaired Activities Counselor Required: No Beliefs That Will Affect Care: None marital status: Current Living Situation: Spouse and Family Current Living Situation Comment: lives with son and current occupational status: retired Other Information That Helps Us Care for You: No Feels Safe at Home: Declines to Answer Assistive Devices: None Assistive Devices Comment: unknown Review of Systems See HPI for pertinent positives & negatives. and A total of 10 systems reviewed and were otherwise negative Physical Exam Vital Signs Vital Signs - 24 hr 02/04/21 22:12 02/04/21 23:00 02/04/21 23:36 Temperature 36.9 C Temperature Source Temporal Artery Scan Pulse Rate 100 H 87 94 H Pulse Rate from SpO2 Sensor 87 96 H Pulse Rhythm Regular Pulse Strength Normal Respiratory Rate 20 20 Respiratory Effort / Characteristics Non-Labored Spontaneous Respiratory Depth Normal Blood Pressure 103/58 L Blood Pressure Mean 73 Blood Pressure Position Sitting Pulse Oximetry 93 95 95 Oxygen Delivery Method Room Air Sepsis Recent Fever Within 48 Hours No Sepsis New/Unexplained Change in Mental Status N/A Sepsis Action Taken by Nursing No Action Required 02/04/21 23:38 02/05/21 00:00 02/05/21 00:30 Temperature Temperature Source Pulse Rate 96 H 97 H 93 H Pulse Rate from SpO2 Sensor 96 H Pulse Rhythm Pulse Strength Respiratory Rate 19 21 18 Respiratory Effort / Characteristics Respiratory Depth Blood Pressure 130/67 120/73 Blood Pressure Mean 88 88 Blood Pressure Position Pulse Oximetry 96 92 Oxygen Delivery Method Sepsis Recent Fever Within 48 Hours Sepsis New/Unexplained Change in Mental Status Sepsis Action Taken by Nursing 02/05/21 01:00 02/05/21 01:21 02/05/21 01:23 Temperature 36.7 C Temperature Source Axillary Pulse Rate 92 H 96 H 95 H Pulse Rate from SpO2 Sensor 95 H Pulse Rhythm Pulse Strength Respiratory Rate 14 22 22 Respiratory Effort / Characteristics Respiratory Depth Blood Pressure 117/64 135/65 135/65 Blood Pressure Mean 81 88 88 Blood Pressure Position Pulse Oximetry 94 95 Oxygen Delivery Method Sepsis Recent Fever Within 48 Hours Sepsis New/Unexplained Change in Mental Status Sepsis Action Taken by Nursing 02/05/21 01:31 02/05/21 01:38 02/05/21 01:45 Temperature 37.0 C 36.7 C 36.8 C Temperature Source Axillary Axillary Axillary Pulse Rate 90 90 91 H Pulse Rate from SpO2 Sensor 90 91 H Pulse Rhythm Pulse Strength Respiratory Rate 15 16 15 Respiratory Effort / Characteristics Respiratory Depth Blood Pressure 112/59 L 107/90 107/90 Blood Pressure Mean 76 95 95 Blood Pressure Position Lying Pulse Oximetry 97 96 98 Oxygen Delivery Method Sepsis Recent Fever Within 48 Hours Sepsis New/Unexplained Change in Mental Status Sepsis Action Taken by Nursing 02/05/21 02:00 02/05/21 02:15 02/05/21 02:30 Temperature 36.7 C Temperature Source Axillary Pulse Rate 96 H 87 91 H Pulse Rate from SpO2 Sensor 95 H 87 89 Pulse Rhythm Pulse Strength Respiratory Rate 18 21 21 Respiratory Effort / Characteristics Respiratory Depth Blood Pressure 132/86 127/66 123/63 Blood Pressure Mean 101 86 83 Blood Pressure Position Pulse Oximetry 96 96 95 Oxygen Delivery Method Sepsis Recent Fever Within 48 Hours Sepsis New/Unexplained Change in Mental Status Sepsis Action Taken by Nursing 02/05/21 02:45 02/05/21 02:53 Temperature 37.0 C Temperature Source Axillary Pulse Rate 91 H Pulse Rate from SpO2 Sensor 92 H Pulse Rhythm Pulse Strength Respiratory Rate 24 Respiratory Effort / Characteristics Respiratory Depth Blood Pressure 135/61 Blood Pressure Mean 85 Blood Pressure Position Pulse Oximetry 95 Oxygen Delivery Method Sepsis Recent Fever Within 48 Hours Sepsis New/Unexplained Change in Mental Status Sepsis Action Taken by Nursing GENERAL: alert, unwell appearing, mild distress, non-toxic EYE EXAM: normal conjunctiva, PERRL and EOM's grossly intact OROPHARYNX: no exudate, no erythema, lips, buccal mucosa, and tongue normal and mucous membranes are moist NECK: supple, no nuchal rigidity, no adenopathy, non-tender LUNGS: Clear to auscultation. Normal chest wall mechanics, no w/r/r, coarse cough noted during exam, son states this is chronic HEART: no murmurs, S1 normal and S2 normal ABDOMEN: abdomen soft, non-tender, normo-active bowel sounds, no masses, no rebound or guarding. BACK: Back is symmetrical on inspection and there is no deformity, no midline tenderness, no CVA tenderness. SKIN: no rashes and no bruising, pale UPPER EXTREMITIES: upper extremities are grossly normal. FROM, nml pulses b/l. LOWER EXTREMITIES: No pitting edema. FROM, nml pulses b/l. NEURO EXAM: Patient with open eyes, does respond to a few questions at bedside, localizes pain but would not otherwise follow specific commands, no obvious facial droop, no obvious ataxia, moving all extremities spontaneously. Course Course 2355: Updated son at bedside. He is able to sign the blood consent form. He states she and her have not had any concerns regarding her blood transfusion. She had no reaction to the prior transfusion. Vital signs are stable at this time, IV fluids and Protonix drip infusing. 0028: Case discussed with Dr. Nunez. 0105: Patient hemodynamically stable yet. Rectal exam performed at bedside with assistance of DENISE Lyles. Patient with formed stool in the rectal vault, appeared black on my gloved finger. Was heme positive on guaiac testing. Administered Medications Atorvastatin Calcium (Atorvastatin 40 Mg Tab) 40 mg PO QAM MORENITA Stop: 03/07/21 08:59 Last Admin: 02/05/21 10:35 Dose: Not Given Documented by: [id number] Docusate Sodium (Docusate Sodium 100 Mg Cap) 100 mg PO BID MORENITA Stop: 03/07/21 08:59 Last Admin: 02/05/21 20:27 Dose: 100 mg Documented by: [id number] Admin: 02/05/21 10:35 Dose: Not Given Documented by: [id number] Guaifenesin (Guaifenesin 600 Mg Tabcr) 600 mg PO Q12 MORENITA Stop: 03/07/21 08:59 Last Admin: 02/05/21 20:26 Dose: 600 mg Documented by: [id number] Admin: 02/05/21 10:36 Dose: Not Given Documented by: [id number] Sodium Chloride (Nss 1000ml) 1,000 mls @ 80 mls/hr IV .[id number] MORENITA Stop: 03/07/21 04:14 Last Admin: 02/05/21 18:27 Dose: 80 mls/hr Documented by: [id number] Infusion: 02/05/21 18:27 Dose: 80 mls/hr Documented by: [id number] Admin: 02/05/21 06:51 Dose: 80 mls/hr Documented by: [id number] Pantoprazole Sodium 40 mg/ (Syringe) 10 mls @ 5 mls/min IV BID MORENITA Stop: 03/07/21 20:59 Last Admin: 02/05/21 22:10 Dose: 5 mls/min Documented by: [id number] Levothyroxine Sodium (Levothyroxine Sodium 50 Mcg Tablet) 50 mcg PO DAILYBB MORENITA Stop: 03/07/21 06:29 Last Admin: 02/05/21 06:02 Dose: Not Given Documented by: [id number] Loratadine (Loratadine 10 Mg Tab) 10 mg PO DAILY [facility] Stop: 03/07/21 08:59 Last Admin: 02/05/21 10:36 Dose: Not Given Documented by: [id number] Polyethylene Glycol/Electrolytes (Lavage Solution 4000ml) 16 dose PO TODAY@1500 MORENITA Stop: 02/06/21 08:00 Last Admin: 02/05/21 16:40 Dose: 16 dose Documented by: [id number] Discontinued Medications Sodium Chloride (Nss 1000ml) 1,000 mls @ 125 mls/hr IV .Q8H MORENITA Stop: 03/06/21 23:29 Last Infusion: 02/05/21 03:30 Dose: 0 mls/hr Documented by: [id number] Admin: 02/04/21 23:39 Dose: 125 mls/hr Documented by: [id number] Pantoprazole Sodium (Protonix Bolus/Drip) 0 mls @ 1 mls/hr IV ONE STA Stop: 02/04/21 23:22 Last Admin: 02/04/21 23:40 Dose: Not Given Documented by: [id number] Pantoprazole Sodium 40 mg/ (Dextrose) 100 mls @ 20 mls/hr IV Q5H [facility] Stop: 03/06/21 23:35 Last Infusion: 02/05/21 03:31 Dose: 0 mg/hr, 0 mls/hr Documented by: [id number] Infusion: 02/05/21 03:30 Dose: 0 mg/hr, 0 mls/hr Documented by: [id number] Admin: 02/04/21 23:40 Dose: 8 mg/hr, 20 mls/hr Documented by: [id number] Pantoprazole Sodium 80 mg/ (Dextrose) 120 mls @ 400 mls/hr IV NOW ONE Stop: 02/04/21 23:38 Last Infusion: 02/05/21 00:13 Dose: 0 mls/hr Documented by: [id number] Admin: 02/04/21 23:39 Dose: 400 mls/hr Documented by: [id number] Pantoprazole Sodium 40 mg/ (Dextrose) 100 mls @ 20 mls/hr IV Q5H [facility] Stop: 03/07/21 04:29 Last Infusion: 02/05/21 10:35 Dose: 0 mg/hr, 0 mls/hr Documented by: [id number] Admin: 02/05/21 06:51 Dose: 8 mg/hr, 20 mls/hr Documented by: [id number] Furosemide 20 mg/ Syringe 2 mls @ 4 mls/min IV ONE ONE Stop: 02/05/21 04:31 Last Admin: 02/05/21 05:19 Dose: 4 mls/min Documented by: [id number] Critical Care Time Critical Care Time: Yes Total Critical Care Time: 42 Critical care of 42 min performed to assess and manage high likelihood of life- threatening anemia from GI bleed, involving labs and imaging performed with assessment to evaluate anemia and GI bleed diagnosis with frequent reassessment. This time includes bedside time, treatment discussions with patient/family/consultants, documentation time and excludes procedure time. Medical Decision Making Differential Diagnosis Differential diagnosis includes etiologies such as diverticulosis, AVM, coagul opathy, colitis, inflammatory bowel disease, malignancy, Siomara-Sauer tear, esophagitis, peptic ulcer disease, variceal bleed, gastritis, epistaxis, fissure, hemorrhoids, as well as others were entertained. Medical Records Attestation: I reviewed the patient's medical records. Home Medications Current Medication List: was personally reviewed by me Laboratory Data Attestation: I reviewed the patient's lab results. Result diagrams: 02/05/21 21:28 02/05/21 09:38 Lab Results 02/04/21 02/04/21 02/04/21 Range/Units 22:59 22:59 22:59 WBC 9.23 (4.8-10.8) K/uL RBC 2.19 L (4.2-5.4) M/uL Hgb 6.3 L* (12.0-16.0) g/dL Hct 19.4 L* (37-47) % MCV 88.6 (80-100) fL MCH 28.8 (25-34) pg MCHC 32.5 (32-36) g/dL RDW Std Deviation 50.2 H (36.4-46.3) fL RDW Coeff of Ruddy 15.4 H (11.5-14.5) % Plt Count 356 (130-400) K/uL MPV 8.7 (7.4-10.4) fL Immature Gran % (Auto) 0.1 % Neut % (Auto) 69.4 % Lymph % (Auto) 22.9 % [place] % (Auto) 7.0 % Eos % (Auto) 0.5 % Baso % (Auto) 0.1 % Neut # (Auto) 6.40 (1.4-6.5) K/uL Lymph # (Auto) 2.11 (1.2-3.4) K/uL [place] # (Auto) 0.65 H (0.11-0.59) K/uL Eos # (Auto) 0.05 (0-0.5) K/uL Baso # (Auto) 0.01 (0-0.2) K/uL Immature Gran # (Auto) 0.01 (0.00-0.02) K/uL Polychromasia 1+ Ovalocytes 1+ PT (9.0-12.0) Seconds INR (0.9-1.1) Sodium 138 (136-145) mmol/L Potassium 5.3 H (3.5-5.1) mmol/L Chloride 105 (98-107) mmol/L Carbon Dioxide 28 (21-32) mmol/L Anion Gap 4.0 (3-11) BUN 48 H (7-18) mg/dl Creatinine 1.23 H (0.6-1.2) mg/dl Est Cr Clr Drug Dosing 35.4 ml/min Est GFR ( Amer) 50.7 ml/min Est GFR (Non-Af Amer) 43.8 ml/min BUN/Creatinine Ratio 39.0 H (10-20) Glucose 95 (70-99) mg/dl Calcium 9.4 (8.5-10.1) mg/dl Magnesium 2.3 (1.8-2.4) mg/dl Total Bilirubin 0.3 (0.2-1) mg/dl AST 27 (15-37) U/L ALT 17 (12-78) U/L Alkaline Phosphatase 52 (45-117) U/L Troponin I < 0.015 (0-0.045) ng/ml Total Protein 6.0 L (6.4-8.2) gm/dl Albumin 3.2 L (3.4-5.0) gm/dl Globulin 2.8 (2.5-4.0) gm/dl Albumin/Globulin Ratio 1.1 (0.9-2) Lipase 373 (73-393) U/L Specimen Hemolysis COVID-19 Eval Order SARS-CoV-2 (PCR) (Negative) Blood Type O Positive Antibody Screen NEGATIVE Crossmatch See Detail 02/04/21 02/05/21 02/05/21 Range/Units 22:59 00:00 00:00 WBC (4.8-10.8) K/uL RBC (4.2-5.4) M/uL Hgb (12.0-16.0) g/dL Hct (37-47) % MCV (80-100) fL MCH (25-34) pg MCHC (32-36) g/dL RDW Std Deviation (36.4-46.3) fL RDW Coeff of Ruddy (11.5-14.5) % Plt Count (130-400) K/uL MPV (7.4-10.4) fL Immature Gran % (Auto) % Neut % (Auto) % Lymph % (Auto) % [place] % (Auto) % Eos % (Auto) % Baso % (Auto) % Neut # (Auto) (1.4-6.5) K/uL Lymph # (Auto) (1.2-3.4) K/uL [place] # (Auto) (0.11-0.59) K/uL Eos # (Auto) (0-0.5) K/uL Baso # (Auto) (0-0.2) K/uL Immature Gran # (Auto) (0.00-0.02) K/uL Polychromasia Ovalocytes PT 10.4 (9.0-12.0) Seconds INR 1.0 (0.9-1.1) Sodium (136-145) mmol/L Potassium (3.5-5.1) mmol/L Chloride (98-107) mmol/L Carbon Dioxide (21-32) mmol/L Anion Gap (3-11) BUN (7-18) mg/dl Creatinine (0.6-1.2) mg/dl Est Cr Clr Drug Dosing ml/min Est GFR ( Amer) ml/min Est GFR (Non-Af Amer) ml/min BUN/Creatinine Ratio (10-20) Glucose (70-99) mg/dl Calcium (8.5-10.1) mg/dl Magnesium (1.8-2.4) mg/dl Total Bilirubin (0.2-1) mg/dl AST (15-37) U/L ALT (12-78) U/L Alkaline Phosphatase (45-117) U/L Troponin I (0-0.045) ng/ml Total Protein (6.4-8.2) gm/dl Albumin (3.4-5.0) gm/dl Globulin (2.5-4.0) gm/dl Albumin/Globulin Ratio (0.9-2) Lipase (73-393) U/L Specimen Hemolysis COVID-19 Eval Order Covid19 at [facility] SARS-CoV-2 (PCR) NEGATIVE (Negative) Blood Type Antibody Screen Crossmatch Imaging Data My Impression: X-ray: I interpreted the following studies. Chest: A single view study of the chest was reviewed and was negative for cardiomegaly, focal infiltrate, effusion, pulmonary edema, or wide mediastinum. Radiologist's Impression: CT head: Compared to 01/24/2021. Motion artifact. No definite acute intracranial process. No significant change. Radiologist: Es Wyatt MD ECG Data Attestation: I personally reviewed and interpreted this ECG as follows: Indication: + weakness Rate (beats per minute): 92 Rhythm: + normal sinus ECG Intervals/blocks: + Normal QRS and + Normal QT ECG [place]: + Normal ECG ST segments: + Normal ST segments MDM Narrative Patient presents with family due to increased fatigue and confusion. Patient recently admitted for anemia and GI bleed. Patient with stable VS here, however labs confirmed what outpt labs had revealed that pt's H/H was dropping again. Pt denies abdominal pain. Pt afebrile. Son signed blood consent and protonix drip ordered. Blood transfusion started in the ER. Other labs reassuring. Pt with melena on rectal exam. Son made aware of all results and in agreement with the plan. Patient would intermittently answer questions, although otherwise did seem confused. Patient's head CT otherwise unremarkable. Patient remained hemodynamically stable. An order was placed for continuous cardiac monitoring. The monitor shows a rate of _90 with _normal sinus_ rhythm. Impression & Plan Anemia, Acute GI bleeding, Altered mental status Discharge Plan Visit Data Chief Complaint: Abnormal Labs/Diagnostic Testing Stated Complaint: Abnormal Labs, altered mental status ED Provider: Sasha Martinez Discharge Problem: Anemia, Acute GI bleeding, Altered mental status Patient Disposition: Admitted As Inpatient Discharge Instructions Interventions: ED Discharge Assessment Last Done: 02/05/21 03:31 Discharge Problem: Anemia Qualifiers: Anemia type: unspecified type Qualified Code(s): D64.9 - Anemia, unspecified Altered mental status Qualifiers: Altered mental status type: unspecified Qualified Code(s): R41.82 - Altered mental status, unspecified
[2021-02-04] MEDS ORDERED: PANTOprazole 80 MG in DEXTROSE 5% 100 ML IV ONE (23:21)
[2021-02-04] MEDS ORDERED: PANTOPRAZOLE BOLUS/DRIP 1 EA IV STA (23:21)
[2021-02-04] MEDS ORDERED: SODIUM CHLORIDE 0.9% 1000ML 1,000 ML IV SCH (23:30)
[2021-02-04 23:32] LABS: Prothrombin Time 10.4 Seconds (9.0-12.0)
[2021-02-04] MEDS ORDERED: PANTOprazole 40 MG in DEXTROSE 5% 100 ML IV SCH (23:36)
[2021-02-04 23:49] LABS: Hematocrit (blood only) 19.4 % (37-47); Hemoglobin 6.3 g/dL (12.0-16.0); Mean Corpuscular Hemoglobin 28.8 pg (25-34); Mean Corpuscular Hgb Conc 32.5 g/dL (32-36); Mean Corpuscular Volume 88.6 fL (80-100); Mean Platelet Volume 8.7 fL (7.4-10.4); Platelet Count 356 K/uL (130-400); RDW Coefficient of Variation 15.4 % (11.5-14.5); RDW Standard Deviation 50.2 fL (36.4-46.3); Red Blood Count 2.19 M/uL (4.2-5.4); White Blood Count 9.23 K/uL (4.8-10.8)
[2021-02-04 23:50] LABS: Basophils # (auto) 0.01 K/uL (0-0.2); Basophils % (auto) 0.1 %; Eosinophils # (auto) 0.05 K/uL (0-0.5); Eosinophils % (auto) 0.5 %; Immature Granulocytes # (auto) 0.01 K/uL (0.00-0.02); Immature Granulocytes % (auto) 0.1 %; Lymphocytes # (auto) 2.11 K/uL (1.2-3.4); Lymphocytes % (auto) 22.9 %; Monocytes # (auto) 0.65 K/uL (0.11-0.59); Neutrophils % (auto) 69.4 %; Ovalocytes 1+; Polychromasia 1+
[2021-02-04 23:52] LABS: Alanine Aminotransferase 17 U/L (12-78); Albumin Level 3.2 gm/dl (3.4-5.0); Aspartate Aminotransferase 27 U/L (15-37); Blood Urea Nitrogen 48 mg/dl (7-18); Calcium 9.4 mg/dl (8.5-10.1); Carbon Dioxide 28 mmol/L (21-32); Chloride 105 mmol/L (98-107); Creatinine Clr Calc Pharmacy 35.4 ml/min; Est GFR (African American) 50.7 ml/min; Est GFR (Non-African American) 43.8 ml/min; Glucose 95 mg/dl (70-99); Lipase 373 U/L (73-393); Magnesium 2.3 mg/dl (1.8-2.4); Potassium 5.3 mmol/L (3.5-5.1); Sodium 138 mmol/L (136-145)
[2021-02-04 23:54] LABS: Albumin Globulin Ratio 1.1 (0.9-2); Alkaline Phosphatase 52 U/L (45-117); Bilirubin,Total 0.3 mg/dl (0.2-1); Globulin 2.8 gm/dl (2.5-4.0); Troponin I < 0.015 ng/ml (0-0.045)
[2021-02-05] MEDS ORDERED: SODIUM CHLORIDE 0.9% 250 ML IV PRN ×2 (00:32→03:33)
[2021-02-05] MEDS ORDERED: ONDANSETRON INJ 2 MG/ML 2 ML VIAL IV PRN (03:33)
[2021-02-05] MEDS ORDERED: NITROGLYCERIN SL 0.4 MG/TAB TAB SL PRN (03:33)
[2021-02-05] MEDS ORDERED: ALBUTEROL HFA 8 GM INHALER INH PRN (03:33)
[2021-02-05] MEDS ORDERED: ACETAMINOPHEN 325 MG TAB PO PRN (03:33)
[2021-02-05] MEDS ORDERED: SIMETHICONE 80 MG CHEW PO PRN (04:07)
--- NOTE | 2021-02-05 04:19 | History and Physical Report ---
DATE OF ADMISSION: 02/05/2021 CHIEF COMPLAINT: Abnormal labs. 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 She was recently in the hospital in the first week of January with gastrointestinal bleed. At that time, hemoglobin was 5.8 and status post 2 units of PRBC and status post EGD showing small hiatal hernia and mild gastritis and she was also found to have acute bronchiolitis and treated with doxycycline and Rocephin. Also MRI of the brain showed acute left caudate infarction. By the time of discharge, she was restarted on aspirin and Plavix.History of pericardial effusion, but echocardiogram shows small pericardial effusion without tamponade. Since discharge, the patient and her are living with their son. Son noticed that she was getting fatigued and somewhat confused and also she has outpatient labs that shows hemoglobin was again 6.3 and she was brought to the hospital. Here hemoglobin is again 6.3. No obvious signs of bleeding. The patient was started on Protonix drip and one unit of prbc ordered in the ER. The patient is somewhat drowsy, opens eyes on calling, but not answering any questions. Could not get any review of systems from the patient. Son brought the patient to the hospital. Son was able to give some history to ER physician, but left to home and tried to call twice, but not answering the phone. The patient seemed hemodynamically stable, afebrile currently. ALLERGIES: LATEX. PAST MEDICAL HISTORY: As mentioned above. PAST SURGICAL HISTORY: Bone marrow transplant, colonoscopy, multiple lacrimal duct explore, robotic laparoscopic hysterectomy and removal of tubes and ovaries, Pap screen, bilateral hip replacement. MEDICATIONS: Currently the patient is on Tylenol 325 mg p.o. q.i.d. p.r.n., albuterol 2 puffs inhalation every 4 hours p.r.n., aspirin 81 mg p.o. daily, atorvastatin 40 mg p.o. a.m., calcium carbonate 1 tablet p.o. a.m., Plavix 75 mg p.o. a.m., Colace 100 mg p.o. b.i.d., Mucinex 600 mg p.o. q. 12 hours, levothyroxine 50 mcg p.o. a.m., lisinopril 10 mg p.o. a.m., Claritin 10 mg p.o. daily, multivitamins 1 tablet p.o. daily, fish oil 1 capsule p.o. a.m., Protonix 40 mg p.o. a.m., simethicone 80 mg p.o. q. 6 hours p.r.n. FAMILY HISTORY: Significant for brother has heartburn, sister has upper gastrointestinal bleed, cirrhosis, alcoholism. SOCIAL HISTORY: Currently lives with her and son. No smoking, no alcohol, no drug use. REVIEW OF SYSTEMS: Could not get review of systems currently as the patient is confused. PHYSICAL EXAMINATION: GENERAL: The patient is somewhat drowsy, but opens eyes on calling, does not obey commands. Not answering any questions. HEENT: Pupils equal, round, and reactive to light. Oral mucosa moist. NECK: No JVD. No neck masses seen. CARDIOVASCULAR: S1, S2 heard, regular rate and rhythm, no murmur, no gallop. RESPIRATORY SYSTEM: Normal AP diameter. No accessory muscle use. No wheezing, no crackles. ABDOMEN: Soft, bowel sounds present. Mild diffuse abdominal discomfort. No guarding, no rigidity. CENTRAL NERVOUS SYSTEM: Drowsy, but opens eyes on calling, does not obey any commands. Moves extremities. EXTREMITIES: No edema, no erythema. LABORATORY DATA: WBC 9.2, hemoglobin 6.3, hematocrit 19.4, platelets 356. PT 10.4, INR 1. Sodium 138, potassium 5.3, chloride 105, bicarbonate 28, BUN 48, creatinine 1.2, serum glucose 95, calcium 9.4, magnesium 2.3, total bilirubin 0.3, AST 27, ALT 17, alkaline phosphatase 52. Troponin I less than 0.015. Lipase 373. SARS-CoV-2 PCR negative. IMAGING DATA: CT of the head, preliminary report, no acute findings. Chest x-ray, preliminary report, no acute findings. EKG: Normal sinus rhythm at a rate of 92, no significant change was found. ASSESSMENT AND PLAN: This is a 70-year-old female who presents with fatigue and found to have anemia. 1. Symptomatic anemia: Hemoglobin of 6.3. Recently had gastrointestinal bleed. EGD is showing mild gastritis. Will get 2 units of PRBC. Follow H and H q. 6 hours. Placed on Protonix drip, n.p.o., consult GI in the a.m. for further recommendations. 2. Confusion: Recently had a stroke, but holding aspirin and Plavix because of GI bleed. CT of the head initially reported as unremarkable. Will monitor.Will follow cultures. Consult Neurology for further recommendations. 3. Mild hyperkalemia: Potassium 5.3, follow the repeat labs in the a.m. Holding the lisinopril. 4. Chronic kidney disease stage III: Creatinine of 1.2. We will follow the repeat labs. 5. History of cerebrovascular accident: Holding aspirin and Plavix. Continue statin. 6. Hypothyroidism: Continue Synthroid. 7. Hypertension: Holding the lisinopril for hyperkalemia. We will follow the blood pressure. 8. History of acute lymphoid leukemia, on remission since a long time. 9. Deep venous thrombosis: Sequential compression devices for now. 10. Disposition: Closely monitor in the tele floor. Level 1 full code for now. Social service to help with discharge planning. PT and OT prior to discharge. MTDD
[2021-02-05] MEDS ORDERED: FUROSEMIDE 20 MG in SYRINGE 0 ML IV ONE (04:30)
[2021-02-05] MEDS ORDERED: PANTOprazole 40 MG in DEXTROSE 5% 100 ML IV SCH (04:30)
[2021-02-05] MEDS: LEVOTHYROXINE SODIUM 50 MCG TABLET PO SCH (06:02)
[2021-02-05] MEDS: SODIUM CHLORIDE 0.9% 1000ML 1,000 ML IV SCH ×2 (06:51→18:27)
--- NOTE | 2021-02-05 07:12 | CT Scan Report ---
HEAD CT NONCONTRAST CT DOSE: 994.86 mGycm HISTORY: Altered mental status. TECHNIQUE: Multiaxial CT images of the head were performed without the use of intravenous contrast. A utomated exposure control was utilized for this study. A dose lowering technique was utilized adheri ng to the principles of ALARA. Comparison: Head CT 01/24/2021. Findings: The paranasal sinuses and mastoid air cells are clear. The calvarium and skull base are int act. There is no mass, hematoma, midline shift, acute infarct. White matter hypodensity is nonspecifi c but suggestive of microvascular ischemic change. The ventricles and sulci demonstrate mild age-rela sharri involutional changes. Mild motion artifact at the high convexity. There is a small old periventri cular infarct within the left parietal lobe. Stable 11 mm left parafalcine extra-axial lesion consist ent with a meningioma. This is best seen on image 17. Impression: No significant change compared to the prior study. No acute intracranial abnormality. ACT 112: Negative or not required by law. Electronically signed by: Adolfo Coates M.D. 02/05/2021 7:10 AM
--- NOTE | 2021-02-05 07:57 | XRay Report ---
XR chest 1V portable HISTORY: Altered mental status. COMPARISON: Chest 01/25/2021. FINDINGS: No pneumothorax. No pleural effusions. The cardiac silhouette remains borderline enlarged. There are calcified mediastinal lymph nodes, unchanged. Mitral annulus calcifications are again noted . The bones are osteopenic. No new focal lung consolidations to suggest pneumonia. No evidence for pu lmonary edema. IMPRESSION: No significant change compared to the prior study. No acute process. ACT 112: Negative or not required by law. Electronically signed by: Adolfo Coates M.D. 02/05/2021 7:55 AM
--- NOTE | 2021-02-05 10:12 | Gastrointestinal Consultation ---
Date of Consultation February 05, 2021 Assessment & Plan (1) Anemia: Pt is a 70 y/o female w CKD, hx of leukemia s/p bone marrow transplant, hx of CVA on Plavix and ASA, presented w fatigue, confusion, found to have anemia w/o signs of chema GI/ bleeding. Currently s/p 2U PRBC transfusion, repeat labs pending. he was just admitted last week for anemia, melena, EGD w/o source of UGI bleeding found. Outpt colonoscopy recommended - Monitor blood ct and transfuse prn if Hgb <8 - PPI IV BID - CL diet; NPO after midnight - Plan for colonoscopy eval by Dr. Laughlin 02/06/2021. Golytely bowel prep ordered Supervising Physician Co-Signing Physician Notes I performed a history and physical examination of the patient today, including specifically on physical exam - soft abdomen. I have discussed the patient's ma nagement with the advanced practitioner. Please refer to the nurse practitioner's note for the documented findings and plan of care. Anemia with no overt GI bleeding, recent EGD normal hence will plan for colonoscopy tomorrow. History of Present Illness Reason for Consultation: Anemia ? GI bleed Requesting Physician: Dr. Hilario Romero Attending Physician: Dr. Jason Laughlin History of Present Illness Pt is a 70 y/o female w PMHx hypothyroidism, HTN, Kojo's thyroiditis, hx of CVA, CKD III, bone necrosis, leukemia, s/p bone transplant, radiation, who was brought to ED by son yesterday for increasing fatigued and confusion. Pt is lethargic, mostly oriented to self and not answering much questions, chart reviewed. On eval, labs showed anemia w H/H 02/14. Plt 36, INR 1, BUN/Cr 48/1.2. She had been transfused 2U PRBC, f/u labs pending. She was just admitted last week for anemia and melena. EGD done by Dr. Gaston 01/27 showed signs of gastritis, hiatal hernia and Segal's esophagus. Outpt colonoscopy was recommended. Pt's brain MRI during last admission showed acute/subacute L caudate infarct. Her Plavix and ASA were resumed on DC. She hasn't had any signs of rectal bleeding, melena, hematuria per RN. Allergies Allergy/AdvReac Type Severity Reaction Status Date / Time latex Allergy Unknown RASH Verified 02/04/21 22:33 No Known Drug Allergies Allergy Unknown . Verified 02/04/21 22:33 Home Medications Medication Instructions Recorded Confirmed Type atorvastatin 40 mg PO QAM 10/06/18 02/04/21 History calcium carbonate-vitamin D3 1 tab PO QAM 10/06/18 02/04/21 History [Os-Tobias 500 + D3] clopidogrel 75 mg PO QAM 10/06/18 02/04/21 History levothyroxine 50 mcg PO QAM 10/06/18 02/04/21 History lisinopril 10 mg PO QAM 10/06/18 02/04/21 History omega [id number]-fish oil [Fish Oil] 1 cap PO QAM 10/06/18 02/04/21 History acetaminophen [Tylenol] 325 mg PO QID PRN 01/24/21 02/04/21 History albuterol sulfate 2 inh INHALATION Q4 PRN 01/24/21 02/04/21 History aspirin 81 mg PO DAILY 01/24/21 02/04/21 History docusate sodium 100 mg PO BID 01/24/21 02/04/21 History loratadine [Claritin] 10 mg PO DAILY 01/24/21 02/04/21 History multivitamin 1 tab PO DAILY 01/24/21 02/04/21 History simethicone 80 mg PO Q6 PRN 01/24/21 02/04/21 History guaifenesin [Mucinex] 600 mg PO Q12 #14 tab 01/29/21 02/04/21 Rx pantoprazole 40 mg PO QAM #30 tab 01/29/21 02/04/21 Rx Patient History Medical History Adnexal mass CT [facility] 05/01/20 - 7.2 x 4.8 cm cystic L adnexal mass Anemia Cholelithiasis CT [facility] 05/01/20 Dementia GI bleed History of acute lymphoid leukemia History of adenomatous polyp of colon Meningioma " interhemispheric frontal mass 4 x 9 mm per MRI 01/25/14" Surgical History 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 History of sinus surgery Status post bilateral hip replacements Family History Other Family history unobtainable due to patient's condition Social History Smoking Status: Unknown if ever smoked Second Hand Exposure: No; Preferred Language: Malay Communication Ability: Impaired Mobile Phone Salesperson Required: No Beliefs That Will Affect Care: None marital status: Current Living Situation: Spouse and Family Current Living Situation Comment: lives with son and current occupational status: retired Other Information That Helps Us Care for You: No Feels Safe at Home: Declines to Answer Assistive Devices: Walker Assistive Devices Comment: unknown Review of Systems Review of Systems: Unobtainable due to cognitive status Physical Exam Constitutional: + ill appearing, + thin, well groomed and comfortable Eyes: PERRL, conjunctivae normal, anicteric sclerae ENMT: external ear and nose normal, oropharynx normal Respiratory: + abnormal respiratory effort and no respiratory distress Auscultation: + diminished lung sounds Cardiovascular: RRR, no murmur, no edema Gastrointestinal (Abdomen): Inspection/Auscultation: + hypoactive bowel sounds Percussion/Palpation: abdomen soft; abdomen nontender Skin: no rashes, warm and dry no jaundice Psychiatric: Orientation: alert, oriented to person, oriented to time and cooperative Affect: + flat affect Lymphatic: no lymphedema Results & Data ([facility]) Vital Signs (Past 12 Hours) Vital Signs Temp Pulse Pulse Resp BP BP Pulse Ox 02/05/21 08:32 91 H 22 116/61 92 02/05/21 08:30 85 23 91 02/05/21 08:17 83 21 104/60 90 02/05/21 08:02 83 21 91/56 L 90 02/05/21 08:00 85 22 90 02/05/21 07:47 79 27 H 99/55 L 94 02/05/21 07:32 80 22 106/58 L 93 02/05/21 07:30 85 16 96 02/05/21 07:24 36.9 C 82 18 91/49 L 98 02/05/21 07:17 81 22 91/49 L 93 02/05/21 07:02 76 21 92/55 L 93 02/05/21 07:00 75 21 93 02/05/21 06:47 73 21 96/57 L 94 02/05/21 06:32 81 18 95/59 L 95 02/05/21 06:30 85 20 92 02/05/21 06:29 88 18 95/59 L 95 02/05/21 06:17 75 19 101/56 L 94 02/05/21 06:02 83 20 110/60 94 02/05/21 06:00 83 21 94 02/05/21 05:47 90 20 142/73 H 96 02/05/21 05:32 88 17 122/70 96 02/05/21 05:30 85 17 97 02/05/21 05:29 87 18 122/70 94 02/05/21 05:17 79 20 107/64 95 02/05/21 05:02 77 15 107/61 96 02/05/21 05:00 85 18 95 02/05/21 04:59 77 18 107/61 95 02/05/21 04:48 77 20 91 02/05/21 04:47 78 20 94/52 L 91 02/05/21 04:45 77 20 93 02/05/21 04:44 78 20 105/57 L 92 02/05/21 04:32 74 19 105/57 L 95 02/05/21 04:30 78 18 94 02/05/21 04:27 36.9 C 81 20 110/68 95 02/05/21 04:24 82 18 117/61 95 02/05/21 04:17 91 H 15 117/61 97 02/05/21 04:15 88 19 93 02/05/21 04:10 87 18 108/58 L 95 02/05/21 04:02 87 18 108/58 L 92 02/05/21 04:00 76 20 94 02/05/21 03:47 76 20 110/64 97 02/05/21 03:45 81 23 94 02/05/21 03:33 37.1 C 91 H 96 H 18 119/57 L 128/69 95 02/05/21 03:32 92 H 18 119/57 L 97 02/05/21 03:30 93 H 20 97 02/05/21 02:53 37.0 C 02/05/21 02:45 91 H 24 135/61 95 02/05/21 02:30 91 H 21 123/63 95 02/05/21 02:15 87 21 127/66 96 02/05/21 02:00 36.7 C 96 H 18 132/86 96 02/05/21 01:45 36.8 C 91 H 15 107/90 98 02/05/21 01:38 36.7 C 90 16 107/90 96 02/05/21 01:31 37.0 C 90 15 112/59 L 97 02/05/21 01:23 36.7 C 95 H 22 135/65 95 02/05/21 01:21 96 H 22 135/65 94 02/05/21 01:00 92 H 14 117/64 02/05/21 00:30 93 H 18 02/05/21 00:00 97 H 21 120/73 92 02/04/21 23:38 96 H 19 130/67 96 02/04/21 23:36 94 H 95 02/04/21 23:00 87 20 95 02/04/21 22:12 36.9 C 100 H 20 103/58 L 93 Pulse Ox 02/05/21 08:32 02/05/21 08:30 02/05/21 08:17 02/05/21 08:02 02/05/21 08:00 02/05/21 07:47 02/05/21 07:32 02/05/21 07:30 02/05/21 07:24 02/05/21 07:17 02/05/21 07:02 02/05/21 07:00 02/05/21 06:47 02/05/21 06:32 02/05/21 06:30 02/05/21 06:29 02/05/21 06:17 02/05/21 06:02 02/05/21 06:00 02/05/21 05:47 02/05/21 05:32 02/05/21 05:30 02/05/21 05:29 02/05/21 05:17 02/05/21 05:02 02/05/21 05:00 02/05/21 04:59 02/05/21 04:48 02/05/21 04:47 02/05/21 04:45 02/05/21 04:44 02/05/21 04:32 02/05/21 04:30 02/05/21 04:27 02/05/21 04:24 02/05/21 04:17 02/05/21 04:15 02/05/21 04:10 02/05/21 04:02 02/05/21 04:00 02/05/21 03:47 02/05/21 03:45 02/05/21 03:33 96 02/05/21 03:32 02/05/21 03:30 02/05/21 02:53 02/05/21 02:45 02/05/21 02:30 02/05/21 02:15 02/05/21 02:00 02/05/21 01:45 02/05/21 01:38 02/05/21 01:31 02/05/21 01:23 02/05/21 01:21 02/05/21 01:00 02/05/21 00:30 02/05/21 00:00 02/04/21 23:38 02/04/21 23:36 02/04/21 23:00 02/04/21 22:12
[2021-02-05 10:26] LABS: Basophils # (auto) 0.01 K/uL (0-0.2); Basophils % (auto) 0.1 %; Eosinophils # (auto) 0.01 K/uL (0-0.5); Eosinophils % (auto) 0.1 %; Hematocrit (blood only) 29.6 % (37-47); Hemoglobin 9.9 g/dL (12.0-16.0); Immature Granulocytes # (auto) 0.01 K/uL (0.00-0.02); Immature Granulocytes % (auto) 0.1 %; Lymphocytes % (auto) 16.5 %; Mean Corpuscular Hemoglobin 29.6 pg (25-34); Mean Corpuscular Hgb Conc 33.4 g/dL (32-36); Mean Corpuscular Volume 88.6 fL (80-100); Mean Platelet Volume 8.7 fL (7.4-10.4); Monocytes # (auto) 0.64 K/uL (0.11-0.59); Monocytes % (auto) 7.5 %; Neutrophils # (auto) 6.42 K/uL (1.4-6.5); Neutrophils % (auto) 75.7 %; Platelet Count 288 K/uL (130-400); RDW Coefficient of Variation 14.5 % (11.5-14.5); RDW Standard Deviation 46.9 fL (36.4-46.3); Red Blood Count 3.34 M/uL (4.2-5.4); White Blood Count 8.49 K/uL (4.8-10.8)
[2021-02-05] MEDS: ATORVASTATIN 40 MG TAB PO SCH (10:35)
[2021-02-05] MEDS: DOCUSATE SODIUM 100 MG CAP PO SCH ×2 (10:35→20:27)
[2021-02-05 10:36] LABS: Calcium 8.6 mg/dl (8.5-10.1); Creatinine Clr Calc Pharmacy 34.5 ml/min; Est GFR (African American) 50.7 ml/min; Est GFR (Non-African American) 43.8 ml/min
[2021-02-05] MEDS: LORATADINE 10 MG TAB PO SCH (10:36)
[2021-02-05] MEDS: guaiFENesin 600 MG TABCR PO SCH ×2 (10:36→20:26)
[2021-02-05] MEDS ORDERED: LAVAGE SOLUTION 4000ML PO SCH ×2 (15:00→17:00)
[2021-02-05 15:07] LABS: Hematocrit (blood only) 27.2 % (37-47); Hemoglobin 9.2 g/dL (12.0-16.0)
--- NOTE | 2021-02-05 16:15 | XRay Report ---
XR KUB/Abdomen 1 view CLINICAL HISTORY: coresafe placement COMPARISON STUDY: No previous studies for comparison. FINDINGS: A single view centered on hemidiaphragms is provided for interpretation. The recently place d enteric tube is positioned within the stomach. IMPRESSION: The recently placed enteric tube is positioned within the stomach. ACT 112: Negative or not required by law. Electronically signed by: Franco Luna M.D. 02/05/2021 4:14 PM
--- NOTE | 2021-02-05 16:20 | Communication Note ---
Date of Service: February 05, 2021 Melania Avilez was readmitted to the hospital for confusion lethargy and was found to have a recurrence of her anemia secondary to presumptive GI blood loss and neurology has been consulted regarding I suppose encephalopathy which is probably due to the blood loss anemia and her underlying cognitive impairment syndrome and the recent small left caudate CVA of about 5 mm in size. I would assume we are also being consulted about whether or not to continue the antiplatelet therapy which was held for a while during her last recent admission and then was restarted after no gastric source of GI blood loss was found but plans were to proceed to colonoscopy as the work-up at that point did not explain the site of the GI bleeding She continues to be mildly confused is angry with the nursing staff needs four- point restraints and is admittedly more alert than she was last night when brought in by her family due to lethargy but still apparently is calling out for her and in my evaluation has no clear-cut focal signs other than the encephalopathy with disorientation to place and time which had not been noted on her recent discharge summary back on February 01 All this occurs in the setting of a host of medical problems including status post bone marrow transplantation for leukemia, a small intracranial meningioma, gastroesophageal reflux, abnormal liver function test, and adnexal mass, hypertension, hypothyroidism vitamin D deficiency, dyslipidemia all as outlined on the admission note I cannot get a good feel for her baseline mental status but Dr. Velez who saw her previously alluded to some cognitive impairment Additional recommendations by neurology during last visit was to have an outpatient Zio patch because of the risk of paroxysmal atrial fibrillation in the setting of left atrial enlargement but this was not done Education list includes Tylenol albuterol aspirin and Plavix both of which have been discontinued at this point, atorvastatin, docusate, guaifenesin, levothyroxine, lisinopril, loratadine, multivitamins, omega-3 fatty acids pantoprazole and simethicone She has allergies to latex but no medications Social history reveals to be living with her family non-smoker nonconsumer of ethanol Review of systems could not be obtained from the patient but upon review of the chart the major issue in addition to the GI blood loss and recurrent anemia is lethargy and increased confusion He has been tested for COVID-19 and is negative Labs show now improved anemia after transfusion of 2 packed red cells with a hemoglobin now around 9-9.2, elevated BUN and creatinine of mild degree, low albumin and no evidence to suggest an intercurrent infection A new imaging study of the brain shows only white matter lucencies insistent with her known leukoencephalopathy and no hemorrhage in the area of the prior small infarction in the basal ganglia on the left On exam her blood pressure at 1547 was 98/70, pulse was 87 respirations 18 temperature was 36.8 O2 saturation of 89% on room air Currently she is awake alert clearly irritable will speak in short phrases but prefers to look away from the examiner at the TV set. Is clearly not happy about being in restraints. Its not clear whether she recognizes she is in the hospital or not she will answer the question. She will hold up her thumb she w ill squeeze my hand she will wiggle her toes but perseverates in terms of hand squeezing and I had to extricate my index finger from either fist to proceed with more examination. 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 Das will be available for consultation if things would change but for now I do not think neurology needs to make regular visits and lesser encephalopathy does not continue to clear back to what everyone considers her baseline. I see no reason to do an EEG as none of this looks like nonconvulsive status epilepticus and frankly I do not think another imaging studies of the brain is indicated beyond the current CT scan For now the neurology is signing off the case but would be happy to revisit should things change or fail to improve further Gildardo Ireland MD
--- NOTE | 2021-02-05 18:30 | Hospitalist Progress Note ---
Date of Service February 05, 2021 Assessment & Plan (1) Anemia: This is a 70-year-old female who presents with fatigue , worsened mental status and found to have anemia. 1. Symptomatic anemia: Hemoglobin of 6.3. Recently had gastrointestinal bleed. EGD is showing mild gastritis. Received 2 units of PRBC on admission. Follow H and H q. 6 hours. Current Hgb >9, stable Placed on Protonix drip, n.p.o., Consulted GI - plan for colonoscopy tmrw. NGT placed for bowel prep. 2. Confusion: Recently had a stroke, but holding aspirin and Plavix because of GI bleed. CT of the head initially reported as unremarkable. Will monitor.Will follow cultures. Consult Neurology for further recommendations. ?Gram negat. bacili bacteremia Positive blood cultx after pt discharged from hospital Will repeat blood cultx now Pt was on Abx during last admission for bronchitis 3. Mild hyperkalemia: Potassium 5.3, follow the repeat labs in the a.m. Holding the lisinopril. 4. Chronic kidney disease stage III: Creatinine of 1.2. We will follow the repeat labs. 5. History of cerebrovascular accident: Holding aspirin and Plavix. Continue statin. 6. Hypothyroidism: Continue Synthroid. 7. Hypertension: Holding the lisinopril for hyperkalemia. We will follow the blood pressure. Currently BP on lower side 8. History of acute lymphoid leukemia, on remission since a long time. Deep venous thrombosis: Sequential compression devices for now. Disposition: Closely monitor in the tele floor. Social service to help with discharge planning. PT and OT prior to discharge. Admission and Anticipated Discharge Date Admission Date: February 05, 2021 Subjective Pt seen in follow up of anemia, worsened mental status Admitted overnight Currently sitting up in bed in NAD, cooperative She agrees that she is in the hospital, she can tell me her name, her 's and son's names She does not know the year, month or day Reports not feeling well and points to lower abdomen causing discomfort Otherwise denies any other complaints Seen by GI, plan for colonoscopy tmrw She has a chronic cough Blood culture from previous admission- gram negative bacilli - will repeat blood cultures now Review of Systems Review of Systems: All systems reviewed & are unremarkable except as noted in HPI & below Constitutional: no fever and no chills Respiratory: + cough (chronic); no dyspnea Cardiovascular: no chest pain and no palpitations Gastrointestinal: + abdominal pain (lower abd. discomfort); no nausea and no vomiting Physical Exam Physical Exam: GENERAL: elderly thin female, in NAD HEENT: NC/AT, Pupils equal, round, and reactive to light. Oral mucosa moist. NECK: No JVD. No neck masses seen. CARDIOVASCULAR: S1, S2 heard, regular rate and rhythm, no murmur, no gallop. RESPIRATORY: Normal AP diameter. No accessory muscle use. No wheezing, no crackles. ABDOMEN: Soft, bowel sounds present. + Mild diffuse abdominal discomfort, luna. lower abd. No guarding, no rigidity. NEURO: awake and cooperative, tells me her name and her family members names b ut doesnt know the year or month or day. Moves extremities. EXTREMITIES: No edema, no erythema. Results & Data Results & Data ([facility]) Vital Signs (Past 12 Hours) Vital Signs Temp Pulse Resp BP Pulse Ox 02/05/21 17:41 92 H 02/05/21 16:00 83 02/05/21 15:47 87 18 98/70 L 89 L 02/05/21 15:32 90 18 122/65 91 02/05/21 15:19 119 H 25 H 139/62 94 02/05/21 15:02 80 24 100/53 L 88 L 02/05/21 15:00 84 24 89 L 02/05/21 14:47 84 19 107/64 88 L 02/05/21 14:32 79 18 98/60 L 90 02/05/21 14:17 76 22 90/58 L 90 02/05/21 14:02 71 19 90/58 L 02/05/21 14:01 74 20 92/55 L 02/05/21 14:00 76 21 90 02/05/21 13:47 75 21 72/47 L 02/05/21 13:33 74 21 91 02/05/21 13:32 75 20 81/51 L 91 02/05/21 13:17 83 23 98/53 L 92 02/05/21 13:02 85 22 95/54 L 93 02/05/21 13:00 86 22 94 02/05/21 12:47 83 21 102/59 L 95 02/05/21 12:32 86 23 113/56 L 94 02/05/21 12:18 90 23 95 02/05/21 12:17 90 21 113/66 97 02/05/21 12:03 89 26 H 118/68 95 02/05/21 12:00 36.8 C 86 18 94 02/05/21 11:47 86 21 108/59 L 93 02/05/21 11:32 79 23 100/57 L 91 02/05/21 11:17 83 21 90/56 L 94 02/05/21 11:02 80 20 97/50 L 90 02/05/21 11:00 79 22 90 02/05/21 10:47 81 22 89/58 L 91 02/05/21 10:43 77 21 91/60 L 91 02/05/21 10:32 80 22 87/58 L 90 02/05/21 10:17 71 20 100/54 L 92 02/05/21 10:02 76 20 94/56 L 90 02/05/21 10:00 78 21 91 02/05/21 09:47 77 19 94/56 L 91 02/05/21 09:17 87 22 101/58 L 91 02/05/21 09:02 88 19 102/64 90 02/05/21 09:00 89 22 91 02/05/21 08:47 86 25 H 106/60 91 02/05/21 08:33 86 21 91 02/05/21 08:32 91 H 22 116/61 92 02/05/21 08:30 85 23 91 02/05/21 08:17 83 21 104/60 90 02/05/21 08:02 83 21 91/56 L 90 02/05/21 08:00 82 22 90 02/05/21 07:47 79 27 H 99/55 L 94 02/05/21 07:32 80 22 106/58 L 93 02/05/21 07:30 85 16 96 02/05/21 07:24 36.9 C 82 18 91/49 L 98 02/05/21 07:17 81 22 91/49 L 93 02/05/21 07:02 76 21 92/55 L 93 02/05/21 07:00 36.9 C 75 21 93 02/05/21 06:47 73 21 96/57 L 94 02/05/21 06:32 81 18 95/59 L 95 02/05/21 06:30 85 20 92 Laboratory Results 02/05/21 02/05/21 02/05/21 Range/Units 14:33 09:38 09:38 WBC 8.49 (4.8-10.8) K/uL RBC 3.34 L (4.2-5.4) M/uL Hgb 9.2 L 9.9 L D (12.0-16.0) g/dL Hct 27.2 L 29.6 L (37-47) % MCV 88.6 (80-100) fL MCH 29.6 (25-34) pg MCHC 33.4 (32-36) g/dL RDW Std Deviation 46.9 H (36.4-46.3) fL RDW Coeff of Ruddy 14.5 (11.5-14.5) % Plt Count 288 (130-400) K/uL MPV 8.7 (7.4-10.4) fL Immature Gran % (Auto) 0.1 % Neut % (Auto) 75.7 % Lymph % (Auto) 16.5 % Whiteside % (Auto) 7.5 % Eos % (Auto) 0.1 % Baso % (Auto) 0.1 % Neut # (Auto) 6.42 (1.4-6.5) K/uL Lymph # (Auto) 1.40 (1.2-3.4) K/uL Whiteside # (Auto) 0.64 H (0.11-0.59) K/uL Eos # (Auto) 0.01 (0-0.5) K/uL Baso # (Auto) 0.01 (0-0.2) K/uL Immature Gran # (Auto) 0.01 (0.00-0.02) K/uL Polychromasia Ovalocytes PT (9.0-12.0) Seconds INR (0.9-1.1) Sodium 138 (136-145) mmol/L Potassium 4.0 D (3.5-5.1) mmol/L Chloride 105 (98-107) mmol/L Carbon Dioxide 29 (21-32) mmol/L Anion Gap 4.0 (3-11) BUN 43 H (7-18) mg/dl Creatinine 1.23 H (0.6-1.2) mg/dl Est Cr Clr Drug Dosing 34.5 ml/min Est GFR ( Amer) 50.7 ml/min Est GFR (Non-Af Amer) 43.8 ml/min BUN/Creatinine Ratio 35.0 H (10-20) Glucose 96 (70-99) mg/dl Calcium 8.6 (8.5-10.1) mg/dl Magnesium (1.8-2.4) mg/dl Total Bilirubin (0.2-1) mg/dl AST (15-37) U/L ALT (12-78) U/L Alkaline Phosphatase (45-117) U/L Troponin I (0-0.045) ng/ml Total Protein (6.4-8.2) gm/dl Albumin (3.4-5.0) gm/dl Globulin (2.5-4.0) gm/dl Albumin/Globulin Ratio (0.9-2) Lipase (73-393) U/L Specimen Hemolysis Nasal Screen MRSA (PCR) (Negative) COVID-19 Eval Order SARS-CoV-2 (PCR) (Negative) Blood Type Antibody Screen Crossmatch 02/05/21 02/05/21 02/05/21 Range/Units 03:35 00:00 00:00 WBC (4.8-10.8) K/uL RBC (4.2-5.4) M/uL Hgb (12.0-16.0) g/dL Hct (37-47) % MCV (80-100) fL MCH (25-34) pg MCHC (32-36) g/dL RDW Std Deviation (36.4-46.3) fL RDW Coeff of Ruddy (11.5-14.5) % Plt Count (130-400) K/uL MPV (7.4-10.4) fL Immature Gran % (Auto) % Neut % (Auto) % Lymph % (Auto) % Whiteside % (Auto) % Eos % (Auto) % Baso % (Auto) % Neut # (Auto) (1.4-6.5) K/uL Lymph # (Auto) (1.2-3.4) K/uL Whiteside # (Auto) (0.11-0.59) K/uL Eos # (Auto) (0-0.5) K/uL Baso # (Auto) (0-0.2) K/uL Immature Gran # (Auto) (0.00-0.02) K/uL Polychromasia Ovalocytes PT (9.0-12.0) Seconds INR (0.9-1.1) Sodium (136-145) mmol/L Potassium (3.5-5.1) mmol/L Chloride (98-107) mmol/L Carbon Dioxide (21-32) mmol/L Anion Gap (3-11) BUN (7-18) mg/dl Creatinine (0.6-1.2) mg/dl Est Cr Clr Drug Dosing ml/min Est GFR ( Amer) ml/min Est GFR (Non-Af Amer) ml/min BUN/Creatinine Ratio (10-20) Glucose (70-99) mg/dl Calcium (8.5-10.1) mg/dl Magnesium (1.8-2.4) mg/dl Total Bilirubin (0.2-1) mg/dl AST (15-37) U/L ALT (12-78) U/L Alkaline Phosphatase (45-117) U/L Troponin I (0-0.045) ng/ml Total Protein (6.4-8.2) gm/dl Albumin (3.4-5.0) gm/dl Globulin (2.5-4.0) gm/dl Albumin/Globulin Ratio (0.9-2) Lipase (73-393) U/L Specimen Hemolysis Nasal Screen MRSA (PCR) Negative (Negative) COVID-19 Eval Order Covid19 at [facility] SARS-CoV-2 (PCR) NEGATIVE (Negative) Blood Type Antibody Screen Crossmatch 02/04/21 02/04/21 02/04/21 Range/Units 22:59 22:59 22:59 WBC 9.23 (4.8-10.8) K/uL RBC 2.19 L (4.2-5.4) M/uL Hgb 6.3 L* (12.0-16.0) g/dL Hct 19.4 L* (37-47) % MCV 88.6 (80-100) fL MCH 28.8 (25-34) pg MCHC 32.5 (32-36) g/dL RDW Std Deviation 50.2 H (36.4-46.3) fL RDW Coeff of Ruddy 15.4 H (11.5-14.5) % Plt Count 356 (130-400) K/uL MPV 8.7 (7.4-10.4) fL Immature Gran % (Auto) 0.1 % Neut % (Auto) 69.4 % Lymph % (Auto) 22.9 % Whiteside % (Auto) 7.0 % Eos % (Auto) 0.5 % Baso % (Auto) 0.1 % Neut # (Auto) 6.40 (1.4-6.5) K/uL Lymph # (Auto) 2.11 (1.2-3.4) K/uL Whiteside # (Auto) 0.65 H (0.11-0.59) K/uL Eos # (Auto) 0.05 (0-0.5) K/uL Baso # (Auto) 0.01 (0-0.2) K/uL Immature Gran # (Auto) 0.01 (0.00-0.02) K/uL Polychromasia 1+ Ovalocytes 1+ PT 10.4 (9.0-12.0) Seconds INR 1.0 (0.9-1.1) Sodium 138 (136-145) mmol/L Potassium 5.3 H (3.5-5.1) mmol/L Chloride 105 (98-107) mmol/L Carbon Dioxide 28 (21-32) mmol/L Anion Gap 4.0 (3-11) BUN 48 H (7-18) mg/dl Creatinine 1.23 H (0.6-1.2) mg/dl Est Cr Clr Drug Dosing 35.4 ml/min Est GFR ( Amer) 50.7 ml/min Est GFR (Non-Af Amer) 43.8 ml/min BUN/Creatinine Ratio 39.0 H (10-20) Glucose 95 (70-99) mg/dl Calcium 9.4 (8.5-10.1) mg/dl Magnesium 2.3 (1.8-2.4) mg/dl Total Bilirubin 0.3 (0.2-1) mg/dl AST 27 (15-37) U/L ALT 17 (12-78) U/L Alkaline Phosphatase 52 (45-117) U/L Troponin I < 0.015 (0-0.045) ng/ml Total Protein 6.0 L (6.4-8.2) gm/dl Albumin 3.2 L (3.4-5.0) gm/dl Globulin 2.8 (2.5-4.0) gm/dl Albumin/Globulin Ratio 1.1 (0.9-2) Lipase 373 (73-393) U/L Specimen Hemolysis Nasal Screen MRSA (PCR) (Negative) COVID-19 Eval Order SARS-CoV-2 (PCR) (Negative) Blood Type Antibody Screen Crossmatch 02/04/21 Range/Units 22:59 WBC (4.8-10.8) K/uL RBC (4.2-5.4) M/uL Hgb (12.0-16.0) g/dL Hct (37-47) % MCV (80-100) fL MCH (25-34) pg MCHC (32-36) g/dL RDW Std Deviation (36.4-46.3) fL RDW Coeff of Ruddy (11.5-14.5) % Plt Count (130-400) K/uL MPV (7.4-10.4) fL Immature Gran % (Auto) % Neut % (Auto) % Lymph % (Auto) % Whiteside % (Auto) % Eos % (Auto) % Baso % (Auto) % Neut # (Auto) (1.4-6.5) K/uL Lymph # (Auto) (1.2-3.4) K/uL Whiteside # (Auto) (0.11-0.59) K/uL Eos # (Auto) (0-0.5) K/uL Baso # (Auto) (0-0.2) K/uL Immature Gran # (Auto) (0.00-0.02) K/uL Polychromasia Ovalocytes PT (9.0-12.0) Seconds INR (0.9-1.1) Sodium (136-145) mmol/L Potassium (3.5-5.1) mmol/L Chloride (98-107) mmol/L Carbon Dioxide (21-32) mmol/L Anion Gap (3-11) BUN (7-18) mg/dl Creatinine (0.6-1.2) mg/dl Est Cr Clr Drug Dosing ml/min Est GFR ( Amer) ml/min Est GFR (Non-Af Amer) ml/min BUN/Creatinine Ratio (10-20) Glucose (70-99) mg/dl Calcium (8.5-10.1) mg/dl Magnesium (1.8-2.4) mg/dl Total Bilirubin (0.2-1) mg/dl AST (15-37) U/L ALT (12-78) U/L Alkaline Phosphatase (45-117) U/L Troponin I (0-0.045) ng/ml Total Protein (6.4-8.2) gm/dl Albumin (3.4-5.0) gm/dl Globulin (2.5-4.0) gm/dl Albumin/Globulin Ratio (0.9-2) Lipase (73-393) U/L Specimen Hemolysis Nasal Screen MRSA (PCR) (Negative) COVID-19 Eval Order SARS-CoV-2 (PCR) (Negative) Blood Type O Positive Antibody Screen NEGATIVE Crossmatch See Detail Medications Administered Current Inpatient Medications Acetaminophen (Acetaminophen 325 Mg Tab) 650 mg PO Q4R PRN PRN Reason: Pain or Fever Stop: 03/07/21 03:32 Albuterol (Albuterol Hfa 8 Gm Inhaler) 2 puffs INH Q4R PRN PRN Reason: Shortness Of Breath Or Wheezin Stop: 03/07/21 03:32 Atorvastatin Calcium (Atorvastatin 40 Mg Tab) 40 mg PO QAM [facility] Stop: 03/07/21 08:59 Last Admin: 02/05/21 10:35 Dose: Not Given Documented by: Docusate Sodium (Docusate Sodium 100 Mg Cap) 100 mg PO BID [facility] Stop: 03/07/21 08:59 Last Admin: 02/05/21 10:35 Dose: Not Given Documented by: Guaifenesin (Guaifenesin 600 Mg Tabcr) 600 mg PO Q12 [facility] Stop: 03/07/21 08:59 Last Admin: 02/05/21 10:36 Dose: Not Given Documented by: Sodium Chloride (Nss 1000ml) 1,000 mls @ 80 mls/hr IV .[id number] [facility] Stop: 03/07/21 04:14 Last Admin: 02/05/21 06:51 Dose: 80 mls/hr Documented by: Pantoprazole Sodium 40 mg/ (Syringe) 10 mls @ 5 mls/min IV BID [facility] Stop: 03/07/21 20:59 Levothyroxine Sodium (Levothyroxine Sodium 50 Mcg Tablet) 50 mcg PO DAILYBB [facility] Stop: 03/07/21 06:29 Last Admin: 02/05/21 06:02 Dose: Not Given Documented by: Loratadine (Loratadine 10 Mg Tab) 10 mg PO DAILY [facility] Stop: 03/07/21 08:59 Last Admin: 02/05/21 10:36 Dose: Not Given Documented by: Nitroglycerin (Nitroglycerin Sl 0.4 Mg/Tab Tab) 0.4 mg SL UD PRN PRN Reason: Chest Pain Stop: 03/07/21 03:32 Ondansetron HCl (Ondansetron Inj 2 Mg/Ml 2 Ml Vial) 4 mg IV Q6H PRN PRN Reason: Nausea Stop: 03/07/21 03:32 Polyethylene Glycol/Electrolytes (Lavage Solution 4000ml) 16 dose PO TODAY@1500 [facility] Stop: 02/06/21 08:00 Last Admin: 02/05/21 16:40 Dose: 16 dose Documented by: Simethicone (Simethicone 80 Mg Chew) 80 mg PO Q6 PRN PRN Reason: bloating Stop: 03/07/21 04:06
[2021-02-05 21:41] LABS: Hematocrit (blood only) 26.2 % (37-47); Hemoglobin 8.6 g/dL (12.0-16.0)
[2021-02-05] MEDS: PANTOprazole 40 MG in SYRINGE 0 ML IV SCH (22:10)
[2021-02-06] MEDS: LEVOTHYROXINE SODIUM 50 MCG TABLET PO SCH (05:33)
[2021-02-06] MEDS: SODIUM CHLORIDE 0.9% 1000ML 1,000 ML IV SCH ×2 (05:33→21:39)
[2021-02-06 06:29] LABS: Hematocrit (blood only) 24.5 % (37-47)
--- NOTE | 2021-02-06 06:39 | Electrocardiogram Report ---
Test Reason : Blood Pressure : / mmHG Vent. Rate : 092 BPM Atrial Rate : 092 BPM P-R Int : 132 ms QRS Dur : 080 ms QT Int : 366 ms P-R-T Axes : 057 034 042 degrees QTc Int : 452 ms Poor data quality, interpretation may be adversely affected Normal sinus rhythm Normal ECG When compared with ECG of 26-JAN-2021 05:43, No significant change was found Confirmed by Calderon Shi ([id number]) on 02/06/2021 6:38:50 AM Referred By: Max Pendleton Confirmed By:Calderon Shi
[2021-02-06 06:53] LABS: BUN Creatinine Ratio 33.1 (10-20); Creatinine Clr Calc Pharmacy 44.2 ml/min; Est GFR (African American) 63.6 ml/min; Est GFR (Non-African American) 54.9 ml/min; Phosphorus 2.4 mg/dl (2.5-4.9); Potassium 4.4 mmol/L (3.5-5.1)
--- NOTE | 2021-02-06 07:51 | Hospitalist Progress Note ---
Date of Service February 06, 2021 Assessment & Plan (1) Anemia: This is a 70-year-old female who presents with fatigue , worsened mental status and found to have anemia. 1. Symptomatic anemia: Hemoglobin of 6.3. Recently had gastrointestinal bleed. EGD is showing mild gastritis. Received 2 units of PRBC on admission. Follow H and H q. 6 hours. Current Hgb ~8, Placed on Protonix drip, n.p.o., Consulted GI - plan for colonoscopy today (02/06). NGT placed for bowel prep. 2. Confusion: Recently had a stroke, but holding aspirin and Plavix because of GI bleed. CT of the head initially reported as unremarkable. Will monitor.Will follow cultures. Consult Neurology for further recommendations. ?Gram negat. bacili bacteremia Positive blood cultx after pt discharged from hospital Will repeat blood cultx now Pt was on Abx during last admission for bronchitis 3. Mild hyperkalemia: Potassium 5.3, follow the repeat labs in the a.m. Holding the lisinopril. 4. Chronic kidney disease stage III: Creatinine of 1.2. We will follow the repeat labs. 5. History of cerebrovascular accident: Holding aspirin and Plavix. Continue statin. 6. Hypothyroidism: Continue Synthroid. 7. Hypertension: Holding the lisinopril for hyperkalemia. We will follow the blood pressure. Currently BP on lower side 8. History of acute lymphoid leukemia, on remission since a long time. Deep venous thrombosis: Sequential compression devices for now. Disposition: Closely monitor in the tele floor. Social service to help with discharge planning. PT and OT prior to discharge. Admission and Anticipated Discharge Date Admission Date: February 05, 2021 Subjective Pt seen in follow up of anemia, worsened mental status Admitted overnight Currently sitting up in bed in NAD, cooperative Now s/p colonoscopy, sleepy Denies any complaints at this time She has a chronic cough Blood culture from previous admission- gram negative bacilli - repeated blood cultures Review of Systems Review of Systems: Full ROS unable to obtain d/t cognitive status Respiratory: + cough (chronic); no dyspnea Gastrointestinal: no abdominal pain, no nausea and no vomiting Physical Exam Physical Exam: GENERAL: elderly thin female, in NAD HEENT: NC/AT, Pupils equal, round, and reactive to light. Oral mucosa moist. NECK: No JVD. No neck masses seen. CARDIOVASCULAR: S1, S2 heard, regular rate and rhythm, no murmur, no gallop. RESPIRATORY: Normal AP diameter. No accessory muscle use. No wheezing, no crackles. ABDOMEN: Soft, bowel sounds present. + Mild diffuse abdominal discomfort, luna. lower abd. No guarding, no rigidity. NEURO: awake and cooperative, tells me her name and her family members names but doesnt know the year or month or day. Moves extremities. EXTREMITIES: No edema, no erythema. Results & Data Results & Data ([facility]) Vital Signs (Past 12 Hours) Vital Signs Temp Pulse Resp BP Pulse Ox Pulse Ox 02/06/21 06:45 37.0 C 74 20 102/54 L 92 02/06/21 03:33 16 124/70 97 02/06/21 03:00 36.8 C 92 H 19 124/70 93 02/05/21 22:45 36.9 C 93 H 18 125/90 94 Laboratory Results 02/06/21 02/06/21 02/05/21 Range/Units 05:42 05:42 21:28 WBC (4.8-10.8) K/uL RBC (4.2-5.4) M/uL Hgb 8.0 L 8.6 L (12.0-16.0) g/dL Hct 24.5 L 26.2 L (37-47) % MCV (80-100) fL MCH (25-34) pg MCHC (32-36) g/dL RDW Std Deviation (36.4-46.3) fL RDW Coeff of Ruddy (11.5-14.5) % Plt Count (130-400) K/uL MPV (7.4-10.4) fL Immature Gran % (Auto) % Neut % (Auto) % Lymph % (Auto) % Victoria % (Auto) % Eos % (Auto) % Baso % (Auto) % Neut # (Auto) (1.4-6.5) K/uL Lymph # (Auto) (1.2-3.4) K/uL Victoria # (Auto) (0.11-0.59) K/uL Eos # (Auto) (0-0.5) K/uL Baso # (Auto) (0-0.2) K/uL Immature Gran # (Auto) (0.00-0.02) K/uL Sodium 142 (136-145) mmol/L Potassium 4.4 (3.5-5.1) mmol/L Chloride 110 H (98-107) mmol/L Carbon Dioxide 27 (21-32) mmol/L Anion Gap 5.0 (3-11) BUN 34 H (7-18) mg/dl Creatinine 1.02 (0.6-1.2) mg/dl Est Cr Clr Drug Dosing 44.2 ml/min Est GFR ( Amer) 63.6 ml/min Est GFR (Non-Af Amer) 54.9 ml/min BUN/Creatinine Ratio 33.1 H (10-20) Glucose 85 (70-99) mg/dl Calcium 8.0 L (8.5-10.1) mg/dl Phosphorus 2.4 L (2.5-4.9) mg/dl Magnesium 2.0 (1.8-2.4) mg/dl 02/05/21 02/05/21 02/05/21 Range/Units 14:33 09:38 09:38 WBC 8.49 (4.8-10.8) K/uL RBC 3.34 L (4.2-5.4) M/uL Hgb 9.2 L 9.9 L D (12.0-16.0) g/dL Hct 27.2 L 29.6 L (37-47) % MCV 88.6 (80-100) fL MCH 29.6 (25-34) pg MCHC 33.4 (32-36) g/dL RDW Std Deviation 46.9 H (36.4-46.3) fL RDW Coeff of Ruddy 14.5 (11.5-14.5) % Plt Count 288 (130-400) K/uL MPV 8.7 (7.4-10.4) fL Immature Gran % (Auto) 0.1 % Neut % (Auto) 75.7 % Lymph % (Auto) 16.5 % Victoria % (Auto) 7.5 % Eos % (Auto) 0.1 % Baso % (Auto) 0.1 % Neut # (Auto) 6.42 (1.4-6.5) K/uL Lymph # (Auto) 1.40 (1.2-3.4) K/uL Victoria # (Auto) 0.64 H (0.11-0.59) K/uL Eos # (Auto) 0.01 (0-0.5) K/uL Baso # (Auto) 0.01 (0-0.2) K/uL Immature Gran # (Auto) 0.01 (0.00-0.02) K/uL Sodium 138 (136-145) mmol/L Potassium 4.0 D (3.5-5.1) mmol/L Chloride 105 (98-107) mmol/L Carbon Dioxide 29 (21-32) mmol/L Anion Gap 4.0 (3-11) BUN 43 H (7-18) mg/dl Creatinine 1.23 H (0.6-1.2) mg/dl Est Cr Clr Drug Dosing 34.5 ml/min Est GFR ( Amer) 50.7 ml/min Est GFR (Non-Af Amer) 43.8 ml/min BUN/Creatinine Ratio 35.0 H (10-20) Glucose 96 (70-99) mg/dl Calcium 8.6 (8.5-10.1) mg/dl Phosphorus (2.5-4.9) mg/dl Magnesium (1.8-2.4) mg/dl Medications Administered Current Inpatient Medications Acetaminophen (Acetaminophen 325 Mg Tab) 650 mg PO Q4R PRN PRN Reason: Pain or Fever Stop: 03/07/21 03:32 Albuterol (Albuterol Hfa 8 Gm Inhaler) 2 puffs INH Q4R PRN PRN Reason: Shortness Of Breath Or Wheezin Stop: 03/07/21 03:32 Atorvastatin Calcium (Atorvastatin 40 Mg Tab) 40 mg PO QAM [facility] Stop: 03/07/21 08:59 Last Admin: 02/05/21 10:35 Dose: Not Given Documented by: Docusate Sodium (Docusate Sodium 100 Mg Cap) 100 mg PO BID [facility] Stop: 03/07/21 08:59 Last Admin: 02/05/21 20:27 Dose: 100 mg Documented by: Guaifenesin (Guaifenesin 600 Mg Tabcr) 600 mg PO Q12 [facility] Stop: 03/07/21 08:59 Last Admin: 02/05/21 20:26 Dose: 600 mg Documented by: Sodium Chloride (Nss 1000ml) 1,000 mls @ 80 mls/hr IV .[id number] [facility] Stop: 03/07/21 04:14 Last Admin: 02/06/21 05:33 Dose: 80 mls/hr Documented by: Pantoprazole Sodium 40 mg/ (Syringe) 10 mls @ 5 mls/min IV BID [facility] Stop: 03/07/21 20:59 Last Admin: 02/05/21 22:10 Dose: 5 mls/min Documented by: Levothyroxine Sodium (Levothyroxine Sodium 50 Mcg Tablet) 50 mcg PO DAILYBB [facility] Stop: 03/07/21 06:29 Last Admin: 02/06/21 05:33 Dose: 50 mcg Documented by: Loratadine (Loratadine 10 Mg Tab) 10 mg PO DAILY [facility] Stop: 03/07/21 08:59 Last Admin: 02/05/21 10:36 Dose: Not Given Documented by: Nitroglycerin (Nitroglycerin Sl 0.4 Mg/Tab Tab) 0.4 mg SL UD PRN PRN Reason: Chest Pain Stop: 03/07/21 03:32 Ondansetron HCl (Ondansetron Inj 2 Mg/Ml 2 Ml Vial) 4 mg IV Q6H PRN PRN Reason: Nausea Stop: 03/07/21 03:32 Polyethylene Glycol/Electrolytes (Lavage Solution 4000ml) 16 dose PO TODAY@1500 [facility] Stop: 02/06/21 08:00 Last Admin: 02/05/21 16:40 Dose: 16 dose Documented by: Simethicone (Simethicone 80 Mg Chew) 80 mg PO Q6 PRN PRN Reason: bloating Stop: 03/07/21 04:06 (1) Anemia Anemia type: unspecified type Qualified Code(s): D64.9 - Anemia, unspecified
--- NOTE | 2021-02-06 08:34 | Anesthesiology Consultation ---
Date of Service February 06, 2021 Assessment & Plan (1) Encounter for pre-operative examination: Chart Review Chart Review: Acceptable Risk for Surgery, Patient NOT seen in Pre Admission Testing and data entry coordinator initiated Consults Requested none ASA ASA3 Proposed Anesthesia Anesthesia Type: MAC Risk / Benefits Reviewed With: PT / POA / Parent / Guardian, Accepts Plan and Informed Consent Obtained History Surgery Operation Date: 02/06/21 16:30 Proposed Procedures p Colonoscopy Dr Laughlin - Jason Laughlin MD Height/Weight Height: 5 ft 6 in Weight: 56.2 kg Allergies Allergy/AdvReac Type Severity Reaction Status Date / Time latex Allergy Unknown RASH Verified 02/04/21 22:33 No Known Drug Allergies Allergy Unknown . Verified 02/04/21 22:33 Medications Home Medications Medication Instructions Recorded Confirmed Last Taken atorvastatin 40 mg PO QAM 10/06/18 02/04/21 05/01/20 calcium carbonate-vitamin D3 1 tab PO QAM 10/06/18 02/04/21 05/01/20 [Os-Tobias 500 + D3] clopidogrel 75 mg PO QAM 10/06/18 02/04/21 05/01/20 levothyroxine 50 mcg PO QAM 10/06/18 02/04/21 05/01/20 lisinopril 10 mg PO QAM 10/06/18 02/04/21 05/01/20 omega 9-[id number]-[id number]-fish oil [Fish Oil] 1 cap PO QAM 10/06/18 02/04/21 05/01/20 acetaminophen [Tylenol] 325 mg PO QID PRN 01/24/21 02/04/21 Unknown albuterol sulfate 2 inh INHALATION Q4 PRN 01/24/21 02/04/21 Unknown aspirin 81 mg PO DAILY 01/24/21 02/04/21 Unknown docusate sodium 100 mg PO BID 01/24/21 02/04/21 Unknown loratadine [Claritin] 10 mg PO DAILY 01/24/21 02/04/21 Unknown multivitamin 1 tab PO DAILY 01/24/21 02/04/21 Unknown simethicone 80 mg PO Q6 PRN 01/24/21 02/04/21 Unknown guaifenesin [Mucinex] 600 mg PO Q12 #14 tab 01/29/21 02/04/21 Unknown pantoprazole 40 mg PO QAM #30 tab 01/29/21 02/04/21 Unknown Active Medications Generic Name Dose Route Start Last Admin Trade Name Freq PRN Reason Stop Dose Admin Atorvastatin Calcium 40 mg 02/05/21 09:00 02/06/21 08:36 Atorvastatin 40 Mg Tab PO 03/07/21 08:59 Not Given QAM MORENITA Docusate Sodium 100 mg 02/05/21 09:00 02/06/21 08:36 Docusate Sodium 100 Mg Cap PO 03/07/21 08:59 Not Given BID MORENITA Guaifenesin 600 mg 02/05/21 09:00 02/06/21 08:36 Guaifenesin 600 Mg Tabcr PO 03/07/21 08:59 Not Given Q12 MORENITA Sodium Chloride 1,000 mls @ 80 mls/hr 02/05/21 04:15 02/06/21 05:33 Nss 1000ml IV 03/07/21 04:14 80 mls/hr .[id number] MORENITA Administration Pantoprazole Sodium 40 mg/ 10 mls @ 5 mls/min 02/05/21 21:00 02/06/21 08:36 Syringe IV 03/07/21 20:59 Not Given BID MORENITA Levothyroxine Sodium 50 mcg 02/05/21 06:30 02/06/21 05:33 Levothyroxine Sodium 50 Mcg Tablet PO 03/07/21 06:29 50 mcg DAILYBB MORENITA Administration Loratadine 10 mg 02/05/21 09:00 02/06/21 08:36 Loratadine 10 Mg Tab PO 03/07/21 08:59 Not Given DAILY MORENITA Past Medical History Medical History (Updated 02/06/21 @ 08:38 by Richi Grover MD) Abnormal liver function tests Adnexal mass CT [facility] 05/01/20 - 7.2 x 4.8 cm cystic L adnexal mass Altered mental status Anemia Cholelithiasis CT [facility] 05/01/20 Dementia GI bleed History of acute lymphoid leukemia History of adenomatous polyp of colon Meningioma " interhemispheric frontal mass 4 x 9 mm per MRI 01/25/14" Past Family History Family History Other Family history unobtainable due to patient's condition Past Surgical History Surgical History 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 History of sinus surgery Status post bilateral hip replacements Social History Smoking Status: Unknown if ever smoked substance use type: does not use Substance Use Type Other:: marisa aox1 Physical Exam Vital Signs Last Vital Signs Temp 37.0 C 02/06/21 06:45 Pulse 74 02/06/21 06:45 Resp 20 02/06/21 06:45 BP 102/54 L 02/06/21 06:45 Pulse Ox 92 02/06/21 06:45 Testing Laboratory Results 02/06/21 05:42 02/06/21 05:42 PT 10.4 Seconds (9.0-12.0) 02/04/21 22:59 INR 1.0 (0.9-1.1) 02/04/21 22:59 Blood Type O Positive 02/04/21 22:59 Antibody Screen NEGATIVE 02/04/21 22:59 Electrocardiogram Test Reason : Blood Pressure : / mmHG Vent. Rate : 092 BPM Atrial Rate : 092 BPM P-R Int : 132 ms QRS Dur : 080 ms QT Int : 366 ms P-R-T Axes : 057 034 042 degrees QTc Int : 452 ms Poor data quality, interpretation may be adversely affected Normal sinus rhythm Normal ECG When compared with ECG of 26-JAN-2021 05:43, No significant change was found Confirmed by Calderon Shi ([id number]) on 02/06/2021 6:38:50 AM Chest X-Ray XR chest 1V portable HISTORY: Altered mental status. COMPARISON: Chest 01/25/2021. FINDINGS: No pneumothorax. No pleural effusions. The cardiac silhouette remains borderline enlarged. There are calcified mediastinal lymph nodes, unchanged. Mitral annulus calcifications are again noted. The bones are osteopenic. No new focal lung consolidations to suggest pneumonia. No evidence for pulmonary edema. IMPRESSION: No significant change compared to the prior study. No acute process. Echocardiogram Date: 09/04/17 LV Function: normal
[2021-02-06] MEDS: ATORVASTATIN 40 MG TAB PO SCH (08:36)
[2021-02-06] MEDS: guaiFENesin 600 MG TABCR PO SCH ×2 (08:36→19:33)
[2021-02-06] MEDS: LORATADINE 10 MG TAB PO SCH (08:36)
[2021-02-06] MEDS: PANTOprazole 40 MG in SYRINGE 0 ML IV SCH ×2 (08:36→19:33)
[2021-02-06] MEDS: DOCUSATE SODIUM 100 MG CAP PO SCH ×2 (08:36→19:32)
--- NOTE | 2021-02-06 08:49 | Gastroenterology Progress Note ---
Date of Service February 06, 2021 Assessment & Plan (1) Anemia: Pt is a 70 y/o female w CKD, hx of leukemia s/p bone marrow transplant, hx of CVA on Plavix and ASA, presented w fatigue, confusion, found to have anemia w/o signs of chema GI/ bleeding. S/P 2U PRBC transfusion, blood ct improved. She was just admitted last week for anemia, melena, EGD w/o source of UGI bleeding found. Outpt colonoscopy had been recommended which we will perform while she's admitted today - Monitor blood ct and transfuse prn if Hgb <8 - PPI IV BID - Keep NPO; plan for colonoscopy eval by Dr. Laughlin today. Additional tap water enema ordered Admission and Anticipated Discharge Date Admission Date: February 05, 2021 Supervising Physician Co-Signing Physician Notes I performed a history and physical examination of the patient today, including specifically on physical exam - soft abdomen. I have discussed the patient's management with the advanced practitioner. Please refer to the nurse practitioner's note for the documented findings and plan of care. Subjective Pt completed Golytely bowel prep, stools brown liquid per RN. She is confused, but pleasant, cooperative. Denies abd pain, no n/v noted. Review of Systems Review of Systems: Limited due to confusion Physical Exam Constitutional: + ill appearing, + thin, well groomed and comfortable Eyes: PERRL, conjunctivae normal, anicteric sclerae ENMT: external ear and nose normal, oropharynx normal Respiratory: normal respiratory effort, lungs clear to auscultation Cardiovascular: RRR, no murmur, no edema Gastrointestinal (Abdomen): normal bowel sounds, soft, nontender, no hepatosplenomegaly Skin: no rashes, warm and dry no jaundice Psychiatric: Oriented to self only, flat affect Lymphatic: no lymphedema Results & Data ([facility]) Vital Signs (Past 12 Hours) Vital Signs Temp Pulse Resp BP Pulse Ox Pulse Ox 02/06/21 06:45 37.0 C 74 20 102/54 L 92 02/06/21 03:33 16 124/70 97 02/06/21 03:00 36.8 C 92 H 19 124/70 93 02/05/21 22:45 36.9 C 93 H 18 125/90 94 (1) Anemia Anemia type: unspecified type Qualified Code(s): D64.9 - Anemia, unspecified
--- NOTE | 2021-02-06 13:47 | History & Physical Bridge Note ---
Date of Service February 06, 2021 History & Physical Bridge Note I have examined the patient, reviewed the History & Physical and in the interval since the performance of the History & Physical I have noted the following changes of clinical significance: no changes noted Colonoscopy today, consent obtained from the son.
[2021-02-06] MEDS ORDERED: LIDOCAINE 2% 2 ML VIAL/AMP(20MG/ML) INFIL ONE (14:06)
[2021-02-06] MEDS ORDERED: PROPOFOL IV EMULSION 10 MG/ML 20 ML VIAL IV ONE ×2 (14:06→14:49)
[2021-02-06] MEDS ORDERED: GLYCOPYRROLATE 0.2 MG/ML VIAL ONE (14:38)
--- NOTE | 2021-02-06 14:51 | GI REPORT ---
Patient Name: Melania Avilez Procedure Date: 02/06/2021 2:11 PM Date of : 1950 Admit Type: Inpatient Age: 70 Gender: Female Attending MD: Jason Laughlin MD Procedure: Colonoscopy Providers: Jason Laughlin MD Referring MD: Max Pendleton Indications: Anemia Medicines: Propofol per Anesthesia Complications: No immediate complications. Estimated Blood Loss: Estimated blood loss: none. Procedure: Pre-Anesthesia Assessment: - Prior to the procedure, a History and Physical was performed, and patient medications, allergies and sensitivities were reviewed. The patient's tolerance of previous anesthesia was reviewed. - The alternatives, risks and benefits of the procedure were discussed at length with the patient's son. The patient's proxy verbalized understanding of the risks as well as the alternatives and wished to proceed with the procedure. - Patient identification and proposed procedure were verified prior to the procedure by the physician and the nurse. The procedure was verified in the procedure room. - Pre-procedure physical examination revealed no contraindications to sedation. After I obtained informed consent, the scope was passed under direct vision. Throughout the procedure, the patient's blood pressure, pulse, and oxygen saturations were monitored continuously. The Colonoscope was introduced through the anus and advanced to the terminal ileum. The colonoscopy was performed without difficulty. The patient tolerated the procedure well. The quality of the bowel preparation was fair. The terminal ileum, ileocecal valve, appendiceal orifice, and rectum were photographed. Findings: The perianal and digital rectal examinations were normal. The terminal ileum appeared normal. Scattered small and large-mouthed diverticula were found in the sigmoid colon. Non-bleeding internal hemorrhoids were found during retroflexion. The hemorrhoids were small. Impression: - The examined portion of the ileum was normal. - Diverticulosis in the sigmoid colon. - Non-bleeding internal hemorrhoids. Recommendation: - [facility]. - To visualize the small bowel, consider video capsule endoscopy as outpatient. - If any evidence of bleeding or no improvement in H/H then please obtain a bleeding scan. - Recall GI if needed. Jason Laughlin MD 02/06/2021 2:51:14 PM This report has been signed electronically. Note Initiated On: 02/06/2021 2:11 PM Number of Addenda: 0 I attest to the content of the Intraoperative Record and orders documented therein, exceptions below {[id number]}
[2021-02-06] MEDS ORDERED: PHENYLEPHRINE 100MCG/ML 5ML SYR ONE (15:01)
--- NOTE | 2021-02-06 15:02 | Anesthesiology Progress Note ---
Date of Service February 06, 2021 Anesthesia Post Procedure Vital Signs Vital Signs: Temp Pulse Pulse Pulse Resp BP BP 02/06/21 13:39 36.5 C 75 18 109/59 L 02/06/21 12:17 36.9 C 68 14 91/47 L 02/06/21 08:00 70 02/06/21 06:45 37.0 C 74 20 102/54 L 02/06/21 03:33 16 124/70 02/06/21 03:00 36.8 C 92 H 19 124/70 02/05/21 22:45 36.9 C 93 H 18 125/90 02/05/21 19:13 37.1 C 97 H 20 132/87 02/05/21 18:46 36.8 C 94 H 20 132/69 02/05/21 17:41 92 H 02/05/21 16:00 83 02/05/21 15:47 87 18 98/70 L 02/05/21 15:32 90 18 122/65 02/05/21 15:19 119 H 25 H 139/62 Pulse Ox Pulse Ox 02/06/21 13:39 96 02/06/21 12:17 98 02/06/21 08:00 02/06/21 06:45 92 02/06/21 03:33 97 02/06/21 03:00 93 02/05/21 22:45 94 02/05/21 19:13 92 02/05/21 18:46 90 02/05/21 17:41 02/05/21 16:00 02/05/21 15:47 89 L 02/05/21 15:32 91 02/05/21 15:19 94 Pain Intensity Generalized: Pain Intensity: 0 Transfer of Care Handoff Completed per policy Notes Mental Status: alert / awake / arousable and participated in evaluation Patient Amnestic to Procedure: Yes Nausea / Vomiting: adequately controlled Pain: adequately controlled Airway Patency, RR, SpO2: stable & adequate BP & HR: stable & adequate Hydration State: stable & adequate Anesthetic Complications: no major complications apparent and Pt Satisfied with anesthetic care
[2021-02-07] MEDS: LEVOTHYROXINE SODIUM 50 MCG TABLET PO SCH (05:44)
[2021-02-07 05:56] LABS: BUN Creatinine Ratio 34.7 (10-20); Calcium 7.6 mg/dl (8.5-10.1); Creatinine Clr Calc Pharmacy 45.3 ml/min; Est GFR (African American) 69.4 ml/min; Est GFR (Non-African American) 59.8 ml/min; Potassium 4.2 mmol/L (3.5-5.1)
--- NOTE | 2021-02-07 06:50 | Hospitalist Progress Note ---
Date of Service February 07, 2021 Assessment & Plan (1) Anemia: This is a 70-year-old female who presents with fatigue , worsened mental status and found to have anemia. 1. Symptomatic anemia: Hemoglobin of 6.3. Recently had gastrointestinal bleed. EGD is showing mild gastritis. Received 2 units of PRBC on admission. Follow H and H q. 6 hours. Current Hgb ~8, Placed on Protonix drip, n.p.o., NGT placed for bowel prep. Consulted GI - now s/p colonoscopy (02/06). Findings: The perianal and digital rectal examinations were normal. The terminal ileum appeared normal. Scattered small and large-mouthed diverticula were found in the sigmoid colon. Non-bleeding internal hemorrhoids were found during retroflexion. The hemorrhoids were small. Impression: - The examined portion of the ileum was normal. - Diverticulosis in the sigmoid colon. - Non-bleeding internal hemorrhoids. Recommendation: - [facility]. - To visualize the small bowel, consider video capsule endoscopy as outpatient. - If any evidence of bleeding or no improvement in H/H then please obtain a bleeding scan. - Recall GI if needed. 02/07 Hgb 6.7 this AM -Patient received IV fluids overnight and bolus during colonoscopy yesterday, therefore anemia may be also secondary to dilution -Ordered IV Lasix, and 1 unit of packed red blood cells -Ordered bleeding scan, as recommended by GI on their note for colonoscopy -No GI bleeding scan available over the weekend at [facility] -Update: Posttransfusion hemoglobin 8.8, will repeat H&H tonight, continue to closely monitor 2. Confusion: Recently had a stroke, but holding aspirin and Plavix because of GI bleed. CT of the head initially reported as unremarkable. Will monitor.Will follow cultures. Consult Neurology for further recommendations. ?Gram negat. bacili bacteremia Positive blood cultx after pt discharged from hospital Repeat blood cultx (02/05) - NG in 48 hrs- cont. to follow Pt was on Abx during last admission for bronchitis 3. Mild hyperkalemia: Potassium 5.3, follow the repeat labs in the a.m. Holding the lisinopril. 4. Chronic kidney disease stage III: Creatinine of 1.2. We will follow the repeat labs. 5. History of cerebrovascular accident: Holding aspirin and Plavix. Continue statin. 6. Hypothyroidism: Continue Synthroid. 7. Hypertension: Holding the lisinopril for hyperkalemia. We will follow the blood pressure. Currently BP on lower side 8. History of acute lymphoid leukemia, on remission since a long time. Deep venous thrombosis: Sequential compression devices for now. Disposition: Closely monitor in the tele floor. Social service to help with discharge planning. PT and OT prior to discharge. Admission and Anticipated Discharge Date Admission Date: February 05, 2021 Subjective Pt seen in follow up of anemia, worsened mental status Currently sitting up in bed in NAD, cooperative Now s/p colonoscopy Denies any complaints at this time She has a chronic cough Blood culture from previous admission- gram negative bacilli - repeated blood cultures Estrogen colonoscopy, received IV bolus, and also had IV fluids overnight. Hemoglobin this morning 6.7. Ordered 1 unit of packed red blood cells and IV Lasix Also ordered bleeding scan Update: Unable to obtain bleeding scan over the weekend at [facility] Post -transfusion hemoglobin 8.8 Review of Systems Review of Systems: All systems reviewed & are unremarkable except as noted in HPI & below and Unobtainable due to cognitive status Patient has no complaints however does not answer all questions appropriately Respiratory: + cough (chronic); no dyspnea Physical Exam Physical Exam: GENERAL: elderly thin female, in NAD HEENT: NC/AT, Pupils equal, round, and reactive to light. Oral mucosa moist. NECK: No JVD. No neck masses seen. CARDIOVASCULAR: S1, S2 heard, regular rate and rhythm, no murmur, no gallop. RESPIRATORY: Normal AP diameter. No accessory muscle use. No wheezing, no crackles. ABDOMEN: Soft, bowel sounds present. + Mild diffuse abdominal discomfort, luna. lower abd. No guarding, no rigidity. NEURO: awake and cooperative, tells me her name and her family members names but doesnt know the year or month or day. Moves extremities. EXTREMITIES: No edema, no erythema. Results & Data Results & Data ([facility]) Vital Signs (Past 12 Hours) Vital Signs Temp Pulse Pulse Pulse Resp BP Pulse Ox 02/07/21 04:14 36.4 C L 80 20 105/56 L 92 02/07/21 00:00 79 02/06/21 23:47 36.4 C L 82 18 108/63 90 02/06/21 19:28 36.5 C 75 18 121/65 95 (1) Anemia Anemia type: unspecified type Qualified Code(s): D64.9 - Anemia, unspecified
[2021-02-07 07:56] LABS: Hematocrit (blood only) 20.6 % (37-47); Hemoglobin 6.7 g/dL (12.0-16.0)
[2021-02-07] MEDS ORDERED: SODIUM CHLORIDE 0.9% 250 ML IV PRN (08:05)
[2021-02-07] MEDS ORDERED: FUROSEMIDE 20 MG in SYRINGE 0 ML IV ONE (09:00)
[2021-02-07] MEDS: PANTOprazole 40 MG in SYRINGE 0 ML IV SCH ×2 (09:21→21:06)
[2021-02-07] MEDS: LORATADINE 10 MG TAB PO SCH (09:22)
[2021-02-07] MEDS: guaiFENesin 600 MG TABCR PO SCH ×2 (09:22→21:06)
[2021-02-07] MEDS: ATORVASTATIN 40 MG TAB PO SCH (09:22)
[2021-02-07] MEDS: DOCUSATE SODIUM 100 MG CAP PO SCH ×2 (09:23→21:07)
[2021-02-07 15:49] LABS: Hemoglobin 8.8 g/dL (12.0-16.0)
[2021-02-07 22:44] LABS: Hematocrit (blood only) 26.4 % (37-47); Hemoglobin 8.6 g/dL (12.0-16.0)
[2021-02-08 06:28] LABS: Hematocrit (blood only) 25.8 % (37-47); Hemoglobin 8.6 g/dL (12.0-16.0)
[2021-02-08 06:45] LABS: BUN Creatinine Ratio 25.9 (10-20); Calcium 8.4 mg/dl (8.5-10.1); Creatinine Clr Calc Pharmacy 41.9 ml/min; Est GFR (African American) 61.4 ml/min; Potassium 3.7 mmol/L (3.5-5.1)
[2021-02-08] MEDS ORDERED: POTASSIUM CHLORIDE CRTAB 20 MEQ TABCR PO STA (08:05)
[2021-02-08] MEDS: ATORVASTATIN 40 MG TAB PO SCH (08:21)
[2021-02-08] MEDS: LEVOTHYROXINE SODIUM 50 MCG TABLET PO SCH (08:21)
[2021-02-08] MEDS: guaiFENesin 600 MG TABCR PO SCH ×2 (08:22→19:34)
[2021-02-08] MEDS: PANTOprazole 40 MG in SYRINGE 0 ML IV SCH ×2 (08:22→19:34)
[2021-02-08] MEDS: DOCUSATE SODIUM 100 MG CAP PO SCH ×2 (08:25→19:35)
[2021-02-08] MEDS: LORATADINE 10 MG TAB PO SCH (08:26)
--- NOTE | 2021-02-08 10:17 | Hospitalist Progress Note ---
Date of Service February 08, 2021 Assessment & Plan (1) Anemia: This is a 70-year-old female who presents with fatigue , worsened mental status and found to have anemia. 1. Symptomatic anemia: Hemoglobin of 6.3. Recently had gastrointestinal bleed. EGD is showing mild gastritis. Received 2 units of PRBC on admission. Follow H and H q. 6 hours. Current Hgb ~8, Placed on Protonix drip, n.p.o., NGT placed for bowel prep. Consulted GI - now s/p colonoscopy (02/06). Findings: The perianal and digital rectal examinations were normal. The terminal ileum appeared normal. Scattered small and large-mouthed diverticula were found in the sigmoid colon. Non-bleeding internal hemorrhoids were found during retroflexion. The hemorrhoids were small. Impression: - The examined portion of the ileum was normal. - Diverticulosis in the sigmoid colon. - Non-bleeding internal hemorrhoids. Recommendation: - [facility]. - To visualize the small bowel, consider video capsule endoscopy as outpatient. - If any evidence of bleeding or no improvement in H/H then please obtain a bleeding scan. - Recall GI if needed. 02/07 Hgb 6.7 this AM -Patient received IV fluids overnight and bolus during colonoscopy yesterday, therefore anemia may be also secondary to dilution -Ordered IV Lasix, and 1 unit of packed red blood cells -Ordered bleeding scan, as recommended by GI on their note for colonoscopy -No GI bleeding scan available over the weekend at [facility] -Update: Posttransfusion hemoglobin 8.8 Current Hgb 8.6 - stable, continue to closely monitor 2. Confusion: Recently had a stroke, but holding aspirin and Plavix because of GI bleed. CT of the head initially reported as unremarkable. Will monitor.Will follow cultures. Consult Neurology for further recommendations. ?Gram negat. bacili bacteremia Positive blood cultx after pt discharged from hospital Repeat blood cultx (02/05) - NG in 48 hrs- cont. to follow Pt was on Abx during last admission for bronchitis Cough - chronic cough, persistent -treated w/ antibiotics at the last admission recently -cont. guaifenesin, IS, flutter valve -repeat procalcitonin and CXR 3. Mild hyperkalemia: Potassium 5.3, follow the repeat labs in the a.m. Holding the lisinopril. 4. Chronic kidney disease stage III: Creatinine of 1.2. We will follow the repeat labs. 5. History of cerebrovascular accident: Holding aspirin and Plavix. Continue statin. 6. Hypothyroidism: Continue Synthroid. 7. Hypertension: Holding the lisinopril for hyperkalemia. We will follow the blood pressure. Currently BP on lower side 8. History of acute lymphoid leukemia, on remission since a long time. Deep venous thrombosis: Sequential compression devices for now. Disposition: Closely monitor in the tele floor. Social service to help with discharge planning. PT and OT prior to discharge. Admission and Anticipated Discharge Date Admission Date: February 05, 2021 Subjective Pt seen in follow up of anemia, worsened mental status Currently sitting up in bed in NAD, cooperative Reportedly more confused overnight - thought she was at home Denies any complaints at this time She has a chronic cough - sounds wet but unable to produce sputum - will add flutter valve and IS, alreadu on guaifenesin, will get CXR and procal Blood culture from previous admission- gram negative bacilli - repeated blood cultures - NGTD Hemoglobin yesterday morning 6.7 - possibly dilutional. Received 1 unit of packed red blood cells and IV Lasix Also ordered bleeding scan Update: Unable to obtain bleeding scan over the weekend at [facility] -transfusion hemoglobin 8.8, now 8.6 - stable Review of Systems Review of Systems: All systems reviewed & are unremarkable except as noted in HPI & below and Unobtainable due to cognitive status No complaints however unable to obtain full ROS Respiratory: + cough (chronic); no dyspnea Physical Exam Physical Exam: GENERAL: elderly thin female, in NAD HEENT: NC/AT, Pupils equal, round, and reactive to light. Oral mucosa moist. NECK: No JVD. No neck masses seen. CARDIOVASCULAR: S1, S2 heard, regular rate and rhythm, no murmur, no gallop. RESPIRATORY: Normal AP diameter. No accessory muscle use. No wheezing, no crackles. ABDOMEN: Soft, bowel sounds present. no abdominal discomfort (resolved) No guarding, no rigidity. NEURO: awake and cooperative, tells me her name and her family members names but doesnt know the year or month or day. Needs to be reminded that she's in the hospital. Moves extremities. EXTREMITIES: No edema, no erythema. Results & Data Results & Data ([facility]) Vital Signs (Past 12 Hours) Vital Signs Temp Pulse Pulse Resp BP Pulse Ox 02/08/21 07:00 36.8 C 79 16 123/83 93 02/08/21 03:51 36.9 C 70 18 121/71 94 02/08/21 00:03 36.7 C 83 18 139/73 91 02/08/21 00:00 83 Laboratory Results 02/08/21 02/08/21 02/07/21 Range/Units 06:00 06:00 22:19 Hgb 8.6 L 8.6 L (12.0-16.0) g/dL Hct 25.8 L 26.4 L (37-47) % Sodium 142 (136-145) mmol/L Potassium 3.7 (3.5-5.1) mmol/L Chloride 109 H (98-107) mmol/L Carbon Dioxide 26 (21-32) mmol/L Anion Gap 7.0 (3-11) BUN 27 H (7-18) mg/dl Creatinine 1.05 (0.6-1.2) mg/dl Est Cr Clr Drug Dosing 41.9 ml/min Est GFR ( Amer) 61.4 ml/min Est GFR (Non-Af Amer) 53.0 ml/min BUN/Creatinine Ratio 25.9 H (10-20) Glucose 86 (70-99) mg/dl Calcium 8.4 L (8.5-10.1) mg/dl Crossmatch 02/07/21 02/04/21 Range/Units 15:23 22:59 Hgb 8.8 L (12.0-16.0) g/dL Hct 27.0 L (37-47) % Sodium (136-145) mmol/L Potassium (3.5-5.1) mmol/L Chloride (98-107) mmol/L Carbon Dioxide (21-32) mmol/L Anion Gap (3-11) BUN (7-18) mg/dl Creatinine (0.6-1.2) mg/dl Est Cr Clr Drug Dosing ml/min Est GFR ( Amer) ml/min Est GFR (Non-Af Amer) ml/min BUN/Creatinine Ratio (10-20) Glucose (70-99) mg/dl Calcium (8.5-10.1) mg/dl Crossmatch See Detail Medications Administered Current Inpatient Medications Acetaminophen (Acetaminophen 325 Mg Tab) 650 mg PO Q4R PRN PRN Reason: Pain or Fever Stop: 03/07/21 03:32 Albuterol (Albuterol Hfa 8 Gm Inhaler) 2 puffs INH Q4R PRN PRN Reason: Shortness Of Breath Or Wheezin Stop: 03/07/21 03:32 Atorvastatin Calcium (Atorvastatin 40 Mg Tab) 40 mg PO QAM MORENITA Stop: 03/07/21 08:59 Last Admin: 02/08/21 08:21 Dose: 40 mg Documented by: Docusate Sodium (Docusate Sodium 100 Mg Cap) 100 mg PO BID MORENITA Stop: 03/07/21 08:59 Last Admin: 02/08/21 08:25 Dose: 100 mg Documented by: Guaifenesin (Guaifenesin 600 Mg Tabcr) 600 mg PO Q12 MORENITA Stop: 03/07/21 08:59 Last Admin: 02/08/21 08:22 Dose: 600 mg Documented by: Pantoprazole Sodium 40 mg/ (Syringe) 10 mls @ 5 mls/min IV BID MORENITA Stop: 03/07/21 20:59 Last Admin: 02/08/21 08:22 Dose: 5 mls/min Documented by: Levothyroxine Sodium (Levothyroxine Sodium 50 Mcg Tablet) 50 mcg PO DAILYBB [facility] Stop: 03/07/21 06:29 Last Admin: 02/08/21 08:21 Dose: 50 mcg Documented by: Loratadine (Loratadine 10 Mg Tab) 10 mg PO DAILY [facility] Stop: 03/07/21 08:59 Last Admin: 02/08/21 08:26 Dose: 10 mg Documented by: Nitroglycerin (Nitroglycerin Sl 0.4 Mg/Tab Tab) 0.4 mg SL UD PRN PRN Reason: Chest Pain Stop: 03/07/21 03:32 Ondansetron HCl (Ondansetron Inj 2 Mg/Ml 2 Ml Vial) 4 mg IV Q6H PRN PRN Reason: Nausea Stop: 03/07/21 03:32 Simethicone (Simethicone 80 Mg Chew) 80 mg PO Q6 PRN PRN Reason: bloating Stop: 03/07/21 04:06 (1) Anemia Anemia type: unspecified type Qualified Code(s): D64.9 - Anemia, unspecified
--- NOTE | 2021-02-08 10:49 | XRay Report ---
XR chest 1V portable CLINICAL HISTORY: cough COMPARISON STUDY: Chest CT January 24, 2021. Chest radiograph February 04, 2021. FINDINGS: Electronic device projects over the left hemithorax. Cardiomediastinal silhouette is stable . Trace right pleural effusion is noted. There is no consolidation to suggest pneumonia. There is no evidence for pulmonary edema. Skinfold projects over the right hemithorax. IMPRESSION: Trace right pleural effusion. ACT 112: Negative or not required by law. Electronically signed by: Ric Mancera M.D. 02/08/2021 10:48 AM
[2021-02-08 19:30] LABS: Hematocrit (blood only) 26.2 % (37-47); Hemoglobin 8.6 g/dL (12.0-16.0)
[2021-02-09] MEDS: LEVOTHYROXINE SODIUM 50 MCG TABLET PO SCH (05:47)
[2021-02-09 06:09] LABS: Hematocrit (blood only) 26.8 % (37-47); Hemoglobin 8.4 g/dL (12.0-16.0)
[2021-02-09 06:49] LABS: BUN Creatinine Ratio 23.3 (10-20); Calcium 7.8 mg/dl (8.5-10.1); Est GFR (African American) 61.4 ml/min; Phosphorus 3.6 mg/dl (2.5-4.9); Potassium 4.1 mmol/L (3.5-5.1)
[2021-02-09 06:55] LABS: Magnesium 2.4 mg/dl (1.8-2.4)
--- NOTE | 2021-02-09 07:25 | Hospitalist Progress Note ---
Date of Service February 09, 2021 Assessment & Plan (1) Anemia: This is a 70-year-old female who presents with fatigue , worsened mental status and found to have anemia. 1. Symptomatic anemia: Hemoglobin of 6.3. Recently had gastrointestinal bleed. EGD is showing mild gastritis. Received 2 units of PRBC on admission. Follow H and H q. 6 hours. Current Hgb ~8, Placed on Protonix drip, n.p.o., NGT placed for bowel prep. Consulted GI - now s/p colonoscopy (02/06). Findings: The perianal and digital rectal examinations were normal. The terminal ileum appeared normal. Scattered small and large-mouthed diverticula were found in the sigmoid colon. Non-bleeding internal hemorrhoids were found during retroflexion. The hemorrhoids were small. Impression: - The examined portion of the ileum was normal. - Diverticulosis in the sigmoid colon. - Non-bleeding internal hemorrhoids. Recommendation: - [facility]. - To visualize the small bowel, consider video capsule endoscopy as outpatient. - If any evidence of bleeding or no improvement in H/H then please obtain a bleeding scan. - Recall GI if needed. 02/07 Hgb 6.7 this AM -Patient received IV fluids overnight and bolus during colonoscopy yesterday, therefore anemia may be also secondary to dilution -Ordered IV Lasix, and 1 unit of packed red blood cells -Ordered bleeding scan, as recommended by GI on their note for colonoscopy -No GI bleeding scan available over the weekend at [facility], will obtain today (02/09) -Update: Posttransfusion hemoglobin 8.8 Current Hgb 8.4 - stable, continue to closely monitor 2. Confusion: Recently had a stroke, but holding aspirin and Plavix because of GI bleed. CT of the head initially reported as unremarkable. Will monitor.Will follow cultures. Consult Neurology for further recommendations. ?Gram negat. bacili bacteremia Positive blood cultx after pt discharged from hospital Repeat blood cultx (02/05) - NG in 48 hrs- cont. to follow Pt was on Abx during last admission for bronchitis Cough - chronic cough, persistent -treated w/ antibiotics at the last admission recently -cont. guaifenesin, IS, flutter valve -repeat procalcitonin and CXR - both unremarkable 3. Mild hyperkalemia: Potassium 5.3, follow the repeat labs in the a.m. Holding the lisinopril. 4. Chronic kidney disease stage III: Creatinine of 1.2. We will follow the repeat labs. 5. History of cerebrovascular accident: Holding aspirin and Plavix. Continue statin. 6. Hypothyroidism: Continue Synthroid. 7. Hypertension: Holding the lisinopril for hyperkalemia. We will follow the blood pressure. Currently BP on lower side 8. History of acute lymphoid leukemia, on remission since a long time. Followed w/ Dr. Woo. Given persistent anemia now w/o clear cause - pt will need follow up w/ hematology and further work -up Deep venous thrombosis: Sequential compression devices for now. Disposition: Closely monitor in the tele floor. Social service to help with discharge planning. PT and OT prior to discharge. Admission and Anticipated Discharge Date Admission Date: February 05, 2021 Subjective Pt seen in follow up of anemia, worsened mental status Currently sitting up in bed in NAD, cooperative Denies any complaints at this time Hemoglobin was down again at 6.7 - possibly dilutional. Received 1 unit of packed red blood cells and IV Lasix Also ordered bleeding scan Unable to obtain bleeding scan over the weekend at [facility], will do today Post -transfusion hemoglobin 8.8, now 8.6 - stable Review of Systems Review of Systems: All systems reviewed & are unremarkable except as noted in HPI & below Constitutional: no fever and no chills Respiratory: + cough (chronic); no dyspnea Cardiovascular: no chest pain and no palpitations Gastrointestinal: no abdominal pain, no nausea and no vomiting Physical Exam Physical Exam: GENERAL: elderly thin female, in NAD HEENT: NC/AT, Pupils equal, round, and reactive to light. Oral mucosa moist. NECK: No JVD. No neck masses seen. CARDIOVASCULAR: S1, S2 heard, regular rate and rhythm, no murmur, no gallop. RESPIRATORY: Normal AP diameter. No accessory muscle use. No wheezing, no crackles. ABDOMEN: Soft, bowel sounds present. no abdominal discomfort (resolved) No guarding, no rigidity. NEURO: awake and cooperative, tells me her name and her family members names but doesnt know the year or month or day. Needs to be reminded that she's in the hospital. Moves extremities. EXTREMITIES: No edema, no erythema. Results & Data Results & Data ([facility]) Vital Signs (Past 12 Hours) Vital Signs Temp Pulse Pulse Resp BP Pulse Ox 02/09/21 04:07 36.5 C 70 19 107/62 94 02/09/21 00:00 65 02/08/21 23:26 36.7 C 79 19 124/74 92 02/08/21 23:14 77 02/08/21 19:33 36.7 C 98 H 21 155/83 H 98 Laboratory Results 02/09/21 02/09/21 02/08/21 Range/Units 05:56 05:56 19:01 Hgb 8.4 L 8.6 L (12.0-16.0) g/dL Hct 26.8 L 26.2 L (37-47) % Sodium 141 (136-145) mmol/L Potassium 4.1 (3.5-5.1) mmol/L Chloride 108 H (98-107) mmol/L Carbon Dioxide 28 (21-32) mmol/L Anion Gap 5.0 (3-11) BUN 25 H (7-18) mg/dl Creatinine 1.05 (0.6-1.2) mg/dl Est Cr Clr Drug Dosing 42.0 ml/min Est GFR ( Amer) 61.4 ml/min Est GFR (Non-Af Amer) 53.0 ml/min BUN/Creatinine Ratio 23.3 H (10-20) Glucose 83 (70-99) mg/dl Calcium 7.8 L (8.5-10.1) mg/dl Phosphorus 3.6 (2.5-4.9) mg/dl Magnesium 2.4 (1.8-2.4) mg/dl Procalcitonin (0-0.5) ng/ml 02/08/21 Range/Units 10:23 Hgb (12.0-16.0) g/dL Hct (37-47) % Sodium (136-145) mmol/L Potassium (3.5-5.1) mmol/L Chloride (98-107) mmol/L Carbon Dioxide (21-32) mmol/L Anion Gap (3-11) BUN (7-18) mg/dl Creatinine (0.6-1.2) mg/dl Est Cr Clr Drug Dosing ml/min Est GFR ( Amer) ml/min Est GFR (Non-Af Amer) ml/min BUN/Creatinine Ratio (10-20) Glucose (70-99) mg/dl Calcium (8.5-10.1) mg/dl Phosphorus (2.5-4.9) mg/dl Magnesium (1.8-2.4) mg/dl Procalcitonin < 0.05 (0-0.5) ng/ml Medications Administered Current Inpatient Medications Acetaminophen (Acetaminophen 325 Mg Tab) 650 mg PO Q4R PRN PRN Reason: Pain or Fever Stop: 03/07/21 03:32 Albuterol (Albuterol Hfa 8 Gm Inhaler) 2 puffs INH Q4R PRN PRN Reason: Shortness Of Breath Or Wheezin Stop: 03/07/21 03:32 Atorvastatin Calcium (Atorvastatin 40 Mg Tab) 40 mg PO QAM [facility] Stop: 03/07/21 08:59 Last Admin: 02/08/21 08:21 Dose: 40 mg Documented by: Docusate Sodium (Docusate Sodium 100 Mg Cap) 100 mg PO BID [facility] Stop: 03/07/21 08:59 Last Admin: 02/08/21 19:35 Dose: 100 mg Documented by: Guaifenesin (Guaifenesin 600 Mg Tabcr) 600 mg PO Q12 [facility] Stop: 03/07/21 08:59 Last Admin: 02/08/21 19:34 Dose: 600 mg Documented by: Pantoprazole Sodium 40 mg/ (Syringe) 10 mls @ 5 mls/min IV BID [facility] Stop: 03/07/21 20:59 Last Admin: 02/08/21 19:34 Dose: 5 mls/min Documented by: Levothyroxine Sodium (Levothyroxine Sodium 50 Mcg Tablet) 50 mcg PO DAILYBB [facility] Stop: 03/07/21 06:29 Last Admin: 02/09/21 05:47 Dose: 50 mcg Documented by: Loratadine (Loratadine 10 Mg Tab) 10 mg PO DAILY [facility] Stop: 03/07/21 08:59 Last Admin: 02/08/21 08:26 Dose: 10 mg Documented by: Nitroglycerin (Nitroglycerin Sl 0.4 Mg/Tab Tab) 0.4 mg SL UD PRN PRN Reason: Chest Pain Stop: 03/07/21 03:32 Ondansetron HCl (Ondansetron Inj 2 Mg/Ml 2 Ml Vial) 4 mg IV Q6H PRN PRN Reason: Nausea Stop: 03/07/21 03:32 Simethicone (Simethicone 80 Mg Chew) 80 mg PO Q6 PRN PRN Reason: bloating Stop: 03/07/21 04:06 (1) Anemia Anemia type: unspecified type Qualified Code(s): D64.9 - Anemia, unspecified
[2021-02-09] MEDS: ATORVASTATIN 40 MG TAB PO SCH (07:57)
[2021-02-09] MEDS: guaiFENesin 600 MG TABCR PO SCH ×2 (07:57→20:14)
[2021-02-09] MEDS: PANTOprazole 40 MG in SYRINGE 0 ML IV SCH ×2 (07:57→20:14)
[2021-02-09] MEDS: DOCUSATE SODIUM 100 MG CAP PO SCH ×2 (07:57→20:14)
[2021-02-09] MEDS: LORATADINE 10 MG TAB PO SCH (07:57)
--- NOTE | 2021-02-09 11:39 | Nuclear Medicine Report ---
NM GI bleeding HISTORY: anemia, ? GI bleed TECHNIQUE: Dynamic abdominal imaging was performed for total of 60 minutes following the intravenous administration of 22.5 mCi of technetium 99m autologous rbc. COMPARISON STUDY: KUB 02/05/2021. FINDINGS: No abnormal radiotracer uptake in the expected location of the bowel to suggest an active G I bleed. IMPRESSION: No evidence for active GI bleed. ACT 112: Negative or not required by law. Electronically signed by: Adolfo Coates M.D. 02/09/2021 11:38 AM
--- NOTE | 2021-02-09 12:31 | Gastroenterology Progress Note ---
Date of Service February 09, 2021 Assessment & Plan (1) Anemia: Will watch blood indices, stool outputs. Plan for OP VCE. Our office will contact her to arrange. Present on Admission?: Yes Admission and Anticipated Discharge Date Admission Date: February 05, 2021 Subjective 70 y/o female w CKD, hx of leukemia s/p bone marrow transplant, hx of CVA on Plavix and ASA, presented w fatigue, confusion, found to have anemia w/o signs of chema GI/ bleeding. Hb 6.3 on arrival + 2 units RBCs 6.7 on 02/07 + 1 unit RBCs BUN today 23. Current Hb 8.4 down from 8.6 yesterday. EGD 01/27 and colonoscopy on 02/06 w/o source of anemia. Most recent BM that was documented was on 02/06 and was black, liquid. Pt tells me that she passed a black, loose BM yesterday and no BMs today - verified no BMs today with her current RN. GI recalled by Dr. Romero for anemia. She arranged a GI bleeding scan which was (- ). Pt seen, examined, sitting up in a chair. Hemodynamically stable. Review of Systems Review of Systems: ROS: Gen: Denies current weakness, fevers, weight loss Eyes: No eye redness, or pain, no recent vision changes Resp: + mild cough, had SOB prior to transfusions Cardio: No palpitations/irregular beats, no chest pain GI: No abdominal pain, no nausea/vomiting : Denies pain on urination Skin: No jaundice, itching or new rashes Physical Exam Constitutional: + ill appearing (chronically), + thin and + frail appearing Eyes: PERRL, conjunctivae normal, anicteric sclerae ENMT: external ear and nose normal, oropharynx normal Neck: trachea midline, no thyromegaly Respiratory: normal respiratory effort and + cough Auscultation: no crackles and no wheezes Cardiovascular: RRR, no murmur, no edema Gastrointestinal (Abdomen): normal bowel sounds, soft, nontender, no hepatosplenomegaly Skin: no rashes, warm and dry Neurologic: PERRL, EOMI, accommodation nl, no face palsy, no dysarthria Psychiatric: A+Ox3, euthymic affect Lymphatic: no cervical or axillary lymphadenopathy Results & Data ([facility]) Vital Signs (Past 12 Hours) Vital Signs Temp Pulse Resp BP Pulse Ox 02/09/21 11:57 36.6 C 79 18 102/71 95 02/09/21 04:07 36.5 C 70 19 107/62 94 Laboratory Results Hb 8.4, Hct 26, Na 141, K 4.1, Cl 108, CO2 28, BUN 25, Cr 1.05, glucose 83. Diagnostic Findings EGD 01/27/21 Dr. Gaston: - Normal upper and middle esophagus. - Esophageal mucosal changes suspicious for Segal's esophagus. Biopsied. - Medium-sized hiatal hernia. - Normal gastric fundus and gastric body. - Gastritis. Biopsied. - Normal examined duodenum. Biopsied. Colonoscopy 02/05/21 Dr. Laughlin: - The examined portion of the ileum was normal. - Diverticulosis in the sigmoid colon. - Non-bleeding internal hemorrhoids. (1) Anemia Anemia type: unspecified type Qualified Code(s): D64.9 - Anemia, unspecified
--- NOTE | 2021-02-09 13:24 | Fluoroscopy Report ---
VIDEO SWALLOW STUDY CLINICAL HISTORY: Aspiration. COMPARISON STUDY: No priors. Fluoroscopy time: 3.2 minutes. FINDINGS: Fluoroscopic guidance is provided to the Department of Speech Pathology in performing a vid eo swallow study. The patient consumed barium-impregnated pudding, cracker with paste, nectar thick l iquid, and thin barium while the swallowing mechanism was observed in real-time. There was pharyngeal penetration with silent aspiration seen with thin barium and the nectar thick liquid textures. No as piration was seen with the cracker and paste or pudding textures. Mild esophageal dysmotility was obs erved. IMPRESSION: 1. Silent aspiration was observed with the thin barium and nectar thick liquid textures. 2. See dedicated speech pathology report for detailed findings and recommendations. Dictated: 02/09/2021 12:08 PM Transcribed: 02/09/2021 1:22 PM Estrella [id number] [email or web address] Electronically signed by: Jim Cabrera M.D. 02/09/2021 1:23 PM
[2021-02-10 06:25] LABS: Hematocrit (blood only) 27.5 % (37-47); Hemoglobin 9.1 g/dL (12.0-16.0)
[2021-02-10 06:53] LABS: BUN Creatinine Ratio 22.8 (10-20); Calcium 8.7 mg/dl (8.5-10.1); Creatinine Clr Calc Pharmacy 42.2 ml/min; Est GFR (African American) 60.1 ml/min; Est GFR (Non-African American) 51.8 ml/min; Potassium 4.6 mmol/L (3.5-5.1)
--- NOTE | 2021-02-10 07:12 | Hospitalist Progress Note ---
Date of Service February 10, 2021 Assessment & Plan (1) Anemia: Acute blood loss anemia in the setting of recent GI bleed This is a 70-year-old female who presents with fatigue , worsened mental status and found to have anemia. 1. Symptomatic anemia: Hemoglobin of 6.3. Recently had gastrointestinal bleed. EGD is showing mild gastritis. Received 2 units of PRBC on admission. Follow H and H q. 6 hours. Current Hgb ~8, Placed on Protonix drip, n.p.o., NGT placed for bowel prep. Consulted GI - now s/p colonoscopy (02/06). Findings: The perianal and digital rectal examinations were normal. The terminal ileum appeared normal. Scattered small and large-mouthed diverticula were found in the sigmoid colon. Non-bleeding internal hemorrhoids were found during retroflexion. The hemorrhoids were small. Impression: - The examined portion of the ileum was normal. - Diverticulosis in the sigmoid colon. - Non-bleeding internal hemorrhoids. Recommendation: - [facility] to [facility] for [facility]. - To visualize the small bowel, consider video capsule endoscopy as outpatient. - If any evidence of bleeding or no improvement in H/H then please obtain a bleeding scan. - Recall GI if needed. 02/07 Hgb 6.7 this AM -Patient received IV fluids overnight and bolus during colonoscopy yesterday, therefore anemia may be also secondary to dilution -Ordered IV Lasix, and 1 unit of packed red blood cells -Ordered bleeding scan, as recommended by GI on their note for colonoscopy -No GI bleeding scan available over the weekend at [facility], obtained on 02/09 - negative -Update: Posttransfusion hemoglobin 8.8 Current Hgb 8-9 - stable, continue to closely monitor 02/10 - At this point, pt underwent EGD, colonoscopy, GI bleeding scan - all negative Plan for video capsule endoscopy to eval small bowel, as outpt Cont. to monitor H&H and stool for signs of bleeding Recommend close hematology follow up as well after DC 2. Acute Metabolic Encephalopathy. Confusion: Recently had a stroke, but holding aspirin and Plavix because of GI bleed. CT of the head initially reported as unremarkable. Will monitor.Will follow cultures. Consult Neurology for further recommendations. Pt 's mental status now improved - at baseline ?Gram negat. bacili bacteremia Positive blood cultx after pt discharged from hospital Repeat blood cultx (02/05) - NG in 48 hrs- cont. to follow Pt was on Abx during last admission for bronchitis Cough - chronic cough, persistent -treated w/ antibiotics at the last admission recently -cont. guaifenesin, IS, flutter valve -repeat procalcitonin and CXR 3. Mild hyperkalemia: Potassium 5.3, follow the repeat labs in the a.m. Holding the lisinopril. 4. Chronic kidney disease stage III: Creatinine of 1.2. We will follow the repeat labs. 5. History of cerebrovascular accident: Holding aspirin and Plavix. Continue statin. 6. Hypothyroidism: Continue Synthroid. 7. Hypertension: Holding the lisinopril for hyperkalemia. We will follow the blood pressure. Currently BP on lower side 8. History of acute lymphoid leukemia, on remission since a long time. Deep venous thrombosis: Sequential compression devices for now. Disposition: Closely monitor in the tele floor. Social service to help with discharge planning. PT and OT prior to discharge. Admission and Anticipated Discharge Date Admission Date: February 05, 2021 Subjective Pt seen in follow up of anemia, worsened mental status Currently sitting up in bed in NAD, cooperative, pt's at the bedside Denies any complaints at this time Hemoglobin was down again at 6.7 - possibly dilutional. Received 1 unit of packed red blood cells and IV Lasix Also ordered bleeding scan which was done yesterday - negative EGD, colonoscopy - negative - plan for small bowel eval as outpt. Per nursing staff pt had brown normal stool Hematology follow up also recommended , Mario Alberto, updated at the bedside Review of Systems Review of Systems: All systems reviewed & are unremarkable except as noted in HPI & below Constitutional: no fever and no chills Respiratory: + cough (chronic); no dyspnea Cardiovascular: no chest pain and no palpitations Gastrointestinal: no abdominal pain, no nausea and no vomiting Physical Exam Physical Exam: GENERAL: elderly thin female, in NAD HEENT: NC/AT, Pupils equal, round, and reactive to light. Oral mucosa moist. NECK: No JVD. No neck masses seen. CARDIOVASCULAR: S1, S2 heard, regular rate and rhythm, no murmur, no gallop. RESPIRATORY: Normal AP diameter. No accessory muscle use. No wheezing, no crackles. ABDOMEN: Soft, bowel sounds present. no abdominal discomfort (resolved) No guarding, no rigidity. NEURO: awake and cooperative, tells me her name and her family members names but doesnt know the year or month or day. Needs to be reminded that she's in the hospital. Moves extremities. EXTREMITIES: No edema, no erythema. Results & Data Results & Data ([facility]) Vital Signs (Past 12 Hours) Vital Signs Temp Pulse Resp BP Pulse Ox 02/10/21 03:00 37.0 C 70 16 114/63 97 02/09/21 23:17 36.6 C 78 14 123/76 94 Laboratory Results 02/10/21 02/10/21 Range/Units 05:49 05:49 Hgb 9.1 L (12.0-16.0) g/dL Hct 27.5 L (37-47) % Sodium 143 (136-145) mmol/L Potassium 4.6 (3.5-5.1) mmol/L Chloride 110 H (98-107) mmol/L Carbon Dioxide 29 (21-32) mmol/L Anion Gap 4.0 (3-11) BUN 24 H (7-18) mg/dl Creatinine 1.07 (0.6-1.2) mg/dl Est Cr Clr Drug Dosing 42.2 ml/min Est GFR ( Amer) 60.1 ml/min Est GFR (Non-Af Amer) 51.8 ml/min BUN/Creatinine Ratio 22.8 H (10-20) Glucose 81 (70-99) mg/dl Calcium 8.7 (8.5-10.1) mg/dl Medications Administered Current Inpatient Medications Acetaminophen (Acetaminophen 325 Mg Tab) 650 mg PO Q4R PRN PRN Reason: Pain or Fever Stop: 03/07/21 03:32 Albuterol (Albuterol Hfa 8 Gm Inhaler) 2 puffs INH Q4R PRN PRN Reason: Shortness Of Breath Or Wheezin Stop: 03/07/21 03:32 Atorvastatin Calcium (Atorvastatin 40 Mg Tab) 40 mg PO QAM [facility] Stop: 03/07/21 08:59 Last Admin: 02/09/21 07:57 Dose: 40 mg Documented by: Docusate Sodium (Docusate Sodium 100 Mg Cap) 100 mg PO BID [facility] Stop: 03/07/21 08:59 Last Admin: 02/09/21 20:14 Dose: 100 mg Documented by: Guaifenesin (Guaifenesin 600 Mg Tabcr) 600 mg PO Q12 [facility] Stop: 03/07/21 08:59 Last Admin: 02/09/21 20:14 Dose: 600 mg Documented by: Pantoprazole Sodium 40 mg/ (Syringe) 10 mls @ 5 mls/min IV BID [facility] Stop: 03/07/21 20:59 Last Admin: 02/09/21 20:14 Dose: 5 mls/min Documented by: Levothyroxine Sodium (Levothyroxine Sodium 50 Mcg Tablet) 50 mcg PO DAILYBB [facility] Stop: 03/07/21 06:29 Last Admin: 02/09/21 05:47 Dose: 50 mcg Documented by: Loratadine (Loratadine 10 Mg Tab) 10 mg PO DAILY [facility] Stop: 03/07/21 08:59 Last Admin: 02/09/21 07:57 Dose: 10 mg Documented by: Nitroglycerin (Nitroglycerin Sl 0.4 Mg/Tab Tab) 0.4 mg SL UD PRN PRN Reason: Chest Pain Stop: 03/07/21 03:32 Ondansetron HCl (Ondansetron Inj 2 Mg/Ml 2 Ml Vial) 4 mg IV Q6H PRN PRN Reason: Nausea Stop: 03/07/21 03:32 Simethicone (Simethicone 80 Mg Chew) 80 mg PO Q6 PRN PRN Reason: bloating Stop: 03/07/21 04:06 (1) Anemia Anemia type: unspecified type Qualified Code(s): D64.9 - Anemia, unspecified
[2021-02-10] MEDS: ATORVASTATIN 40 MG TAB PO SCH (08:03)
[2021-02-10] MEDS: guaiFENesin 600 MG TABCR PO SCH ×2 (08:03→20:04)
[2021-02-10] MEDS: LORATADINE 10 MG TAB PO SCH (08:03)
[2021-02-10] MEDS: PANTOprazole 40 MG in SYRINGE 0 ML IV SCH ×2 (08:04→20:04)
[2021-02-10] MEDS: LEVOTHYROXINE SODIUM 50 MCG TABLET PO SCH (10:00)
[2021-02-10] MEDS: DOCUSATE SODIUM 100 MG CAP PO SCH ×2 (11:31→20:04)
[2021-02-11] MEDS: LEVOTHYROXINE SODIUM 50 MCG TABLET PO SCH (06:06)
[2021-02-11 06:07] LABS: Hematocrit (blood only) 28.3 % (37-47); Hemoglobin 9.1 g/dL (12.0-16.0)
[2021-02-11] MEDS: ATORVASTATIN 40 MG TAB PO SCH (08:46)
[2021-02-11] MEDS: LORATADINE 10 MG TAB PO SCH (08:46)
[2021-02-11] MEDS: guaiFENesin 600 MG TABCR PO SCH ×2 (08:46→20:01)
[2021-02-11] MEDS: DOCUSATE SODIUM 100 MG CAP PO SCH ×2 (08:47→20:01)
[2021-02-11] MEDS: PANTOprazole 40 MG in SYRINGE 0 ML IV SCH ×2 (09:32→20:02)
--- NOTE | 2021-02-11 17:26 | Hospitalist Progress Note ---
Date of Service February 11, 2021 Assessment & Plan (1) Anemia: Symptomatic anemia Acute blood loss anemia In setting of recent GI bleed EGD on 01/27/21: Gastritis Colonoscopy on 02/06/21: Diverticulosis of the sigmoid colon. Nonbleeding internal hemorrhoids Bleeding Scan:No evidence for active GI bleed. S/P 3 Units PRBCs Continue IV Protonix Monitor H&H Appreciate GI input Plan for video capsule endoscopy as outpatient Deferred antiplatelet therapy to neurology given recent stroke No active bleeding currently Plavix discontinued Plan to resume aspirin with caution Needs follow-up with GI, hematology upon discharge Acute Metabolic Encephalopathy H/O recent CVA CT Head:No significant change compared to the prior study. No acute intracranial abnormality. Confusion resolved Restart Aspirin Appreciate Neurology Input Brevundimonas diminuta Bacteremia 1/2 Positive Blood cultures on prior admission Repeat blood cultures negative No signs of infection currently Hyperkalemia: Resolved Lisinopril held CKD III Creatinine at baseline Monitor renal function H/O CVA Resume aspirin Plavix discontinued secondary to GI bleed Continue statin. Hypothyroidism: Continue Synthroid Hypertension: BP stable off lisinopril Monitor H/O ALL In remission DVT Px: SCDs for now Code Status Full Code Disposition: PT and OT prior to discharge. Admission and Anticipated Discharge Date Admission Date: February 05, 2021 Subjective Patient is seen and examined bedside Confusion seems to be resolved, oriented during my encounter Denies any black stools, bloody stools Also denies any chest pain, shortness breath, dizziness, nausea, abdominal pain Offers no other complaints Discussed with pulmonology, neurology today Review of Systems Review of Systems: All systems reviewed & are unremarkable except as noted in HPI & below Physical Exam Physical Exam: Physical Exam: Vitals signs as noted above General Appearance:Thin, Frail, Moderately built and nourished, no apparent distress Head: normocephalic, Atraumatic Eyes: normal inspection, EOMI Neck: supple, Trachea midline Respiratory/Chest: Normal breath sounds, CTA, + ZIO patch Cardiovascular: S1, S2, No murmur Abdomen/GI:Soft, Non tender, Bowel sounds present Extremities/Musculoskeletal:normal inspection, no edema Neurologic/Psych:AAOX3, grossly no focal neurological deficits Skin: normal color, warm Results & Data Results & Data ([facility]) Vital Signs (Past 12 Hours) Vital Signs Temp Pulse Resp BP Pulse Ox 02/11/21 15:27 36.8 C 88 18 127/73 90 02/11/21 07:38 36.3 C L 70 19 132/70 93 Laboratory Results Short CBC 02/11/21 Range/Units 05:52 Hgb 9.1 L (12.0-16.0) g/dL Hct 28.3 L (37-47) % (1) Anemia Anemia type: unspecified type Qualified Code(s): D64.9 - Anemia, unspecified
[2021-02-12] MEDS: LEVOTHYROXINE SODIUM 50 MCG TABLET PO SCH (05:46)
[2021-02-12 06:57] LABS: Hematocrit (blood only) 28.3 % (37-47)
[2021-02-12] MEDS: guaiFENesin 600 MG TABCR PO SCH ×2 (08:43→19:33)
[2021-02-12] MEDS: ATORVASTATIN 40 MG TAB PO SCH (08:43)
[2021-02-12] MEDS: ASPIRIN 81 MG ECTAB PO SCH (08:43)
[2021-02-12] MEDS: LORATADINE 10 MG TAB PO SCH (08:43)
[2021-02-12] MEDS: DOCUSATE SODIUM 100 MG CAP PO SCH ×2 (08:44→19:33)
[2021-02-12] MEDS: PANTOprazole 40 MG TAB PO SCH ×2 (11:02→19:33)
--- NOTE | 2021-02-12 12:48 | XRay Report ---
XR chest 1V portable HISTORY: cough COMPARISON: Chest 02/08/2021. FINDINGS: Cardiac silhouette remains borderline enlarged. There are mitral annulus calcifications. No pneumothorax. Increased markings at the lung bases favor subsegmental atelectasis/dependent change. Otherwise, no new focal lung consolidations to suggest pneumonia. No evidence for pulmonary edema. No definite pleural effusions. IMPRESSION: Increased markings at the lung bases favor atelectasis/mild dependent change. Otherwise, no acute pro cess within the chest. ACT 112: Negative or not required by law. Electronically signed by: Adolfo Coates M.D. 02/12/2021 12:47 PM
--- NOTE | 2021-02-12 17:59 | Hospitalist Progress Note ---
Date of Service February 12, 2021 Assessment & Plan (1) Anemia: Symptomatic anemia Acute blood loss anemia In setting of recent GI bleed EGD on 01/27/21: Gastritis Colonoscopy on 02/06/21: Diverticulosis of the sigmoid colon. Nonbleeding internal hemorrhoids Bleeding Scan:No evidence for active GI bleed. S/P 3 Units PRBCs Continue IV Protonix Appreciate GI input Plan for video capsule endoscopy as outpatient Deferred antiplatelet therapy to neurology given recent stroke No active bleeding currently Plavix discontinued Aspirin resumed Hemoglobin stable Monitor CBC Needs follow-up with GI, hematology upon discharge Acute Metabolic Encephalopathy H/O recent CVA CT Head:No significant change compared to the prior study. No acute intracranial abnormality. Confusion resolved Restarted Aspirin Appreciate Neurology Input Brevundimonas diminuta Bacteremia 1/2 Positive Blood cultures on prior admission Repeat blood cultures negative No signs of infection currently Chronic aspiration Atelectasis Chest x-ray:Increased markings at the lung bases favor atelectasis/mild dependent change. Otherwise, no acute process within the chest. Video swallow:Silent aspiration was observed with the thin barium and nectar thick liquid textures. Risk for aspiration Continue aspiration precaution May need to be transition to pured diet if continues to aspirate Speech eval completed Check procalcitonin tomorrow Incentive spirometer Hyperkalemia: Resolved Lisinopril held CKD III Creatinine at baseline Monitor renal function H/O CVA Continue aspirin Plavix discontinued secondary to GI bleed Continue statin. Hypothyroidism: Continue Synthroid Hypertension: BP stable off lisinopril Monitor H/O ALL In remission Needs follow-up with oncology upon discharge DVT Px: SCDs for now Code Status Full Code Disposition: PT and OT prior to discharge. Admission and Anticipated Discharge Date Admission Date: February 05, 2021 Subjective Patient is seen and examined bedside States having cough with expectoration, generalized weakness Chest x-ray today showed findings suggestive of atelectasis Denies any bleeding issues Also denies any chest pain, shortness breath, dizziness, nausea, abdominal pain Review of Systems Review of Systems: All systems reviewed & are unremarkable except as noted in HPI & below Physical Exam Physical Exam: Physical Exam: Vitals signs as noted above General Appearance:Thin, Frail, Moderately built and nourished, no apparent distress Head: normocephalic, Atraumatic Eyes: normal inspection, EOMI Neck: supple, Trachea midline Respiratory/Chest: Normal breath sounds, CTA, + ZIO patch Cardiovascular: S1, S2, No murmur Abdomen/GI:Soft, Non tender, Bowel sounds present Extremities/Musculoskeletal:normal inspection, no edema Neurologic/Psych:AAOX3, grossly no focal neurological deficits Skin: normal color, warm Results & Data Results & [facility] ([facility]) Vital Signs (Past 12 Hours) Vital Signs Temp Pulse Resp BP Pulse Ox 02/12/21 15:03 36.6 C 81 18 120/65 93 02/12/21 11:17 36.3 C L 78 18 127/79 94 02/12/21 07:26 36.4 C L 84 18 114/68 91 Laboratory Results Short CBC 02/12/21 Range/Units 06:34 Hgb 9.0 L (12.0-16.0) g/dL Hct 28.3 L (37-47) % (1) Anemia Anemia type: unspecified type Qualified Code(s): D64.9 - Anemia, unspecified
[2021-02-13] MEDS: LEVOTHYROXINE SODIUM 50 MCG TABLET PO SCH (05:54)
[2021-02-13 06:47] LABS: Hematocrit (blood only) 28.2 % (37-47); Hemoglobin 8.9 g/dL (12.0-16.0)
[2021-02-13 07:03] LABS: BUN Creatinine Ratio 23.1 (10-20); Calcium 8.9 mg/dl (8.5-10.1); Creatinine Clr Calc Pharmacy 40.8 ml/min; Est GFR (African American) 59.4 ml/min; Est GFR (Non-African American) 51.2 ml/min
[2021-02-13] MEDS: ASPIRIN 81 MG ECTAB PO SCH (08:36)
[2021-02-13] MEDS: guaiFENesin 600 MG TABCR PO SCH (08:36)
[2021-02-13] MEDS: LORATADINE 10 MG TAB PO SCH (08:36)
[2021-02-13] MEDS: PANTOprazole 40 MG TAB PO SCH (08:36)
[2021-02-13] MEDS: ATORVASTATIN 40 MG TAB PO SCH (08:36)
[2021-02-13] MEDS: DOCUSATE SODIUM 100 MG CAP PO SCH (08:37)
--- NOTE | 2021-02-13 12:54 | Hospitalist Progress Note ---
Date of Service February 13, 2021 Assessment & Plan (1) Anemia: Symptomatic anemia Acute blood loss anemia In setting of recent GI bleed EGD on 01/27/21: Gastritis Colonoscopy on 02/06/21: Diverticulosis of the sigmoid colon. Nonbleeding internal hemorrhoids Bleeding Scan:No evidence for active GI bleed. S/P 3 Units PRBCs Continue IV Protonix Appreciate GI input Plan for video capsule endoscopy as outpatient Deferred antiplatelet therapy to neurology given recent stroke No active bleeding currently Plavix discontinued Aspirin resumed Hemoglobin stable Monitor CBC Hb stable Needs follow-up with GI, hematology upon discharge Acute Metabolic Encephalopathy H/O recent CVA CT Head:No significant change compared to the prior study. No acute intracranial abnormality. Confusion resolved Restarted Aspirin Appreciate Neurology Input Mental Status at baseline Brevundimonas diminuta Bacteremia 1/2 Positive Blood cultures on prior admission Repeat blood cultures negative No signs of infection currently Chronic aspiration Atelectasis Chest x-ray:Increased markings at the lung bases favor atelectasis/mild dependent change. Otherwise, no acute process within the chest. Video swallow:Silent aspiration was observed with the thin barium and nectar thick liquid textures. Risk for aspiration Continue aspiration precaution May need to be transition to pured diet if continues to aspirate Speech eval completed procalcitonin negative Incentive spirometer Hyperkalemia: Resolved Monitor CKD III Creatinine at baseline Monitor renal function H/O CVA Continue aspirin Plavix discontinued secondary to GI bleed Continue statin. Hypothyroidism: Continue Synthroid Hypertension: BP stable Monitor H/O ALL In remission Needs follow-up with oncology upon discharge DVT Px: SCDs Re: GI bleed Code Status Full Code Admission and Anticipated Discharge Date Admission Date: February 05, 2021 Subjective Patient is seen and examined bedside States feeling better No new complaints Cough better Denies any chest pain, shortness breath, dizziness, nausea, abdominal pain Eager to get discharged Review of Systems Review of Systems: All systems reviewed & are unremarkable except as noted in HPI & below Physical Exam Physical Exam: Physical Exam: Vitals signs as noted above General Appearance:Thin, Frail, Moderately built and nourished, no apparent distress Head: normocephalic, Atraumatic Eyes: normal inspection, EOMI Neck: supple, Trachea midline Respiratory/Chest: Normal breath sounds, CTA, + ZIO patch Cardiovascular: S1, S2, No murmur Abdomen/GI:Soft, Non tender, Bowel sounds present Extremities/Musculoskeletal:normal inspection, no edema Neurologic/Psych:AAOX3, grossly no focal neurological deficits Skin: normal color, warm Results & Data Results & Data ([facility]) Vital Signs (Past 12 Hours) Vital Signs Temp Pulse Resp BP Pulse Ox 02/13/21 11:31 36.8 C 80 19 116/67 95 02/13/21 07:29 36.9 C 72 19 114/63 95 02/13/21 04:05 36.8 C 77 16 122/78 93 Laboratory Results Short CBC 02/13/21 Range/Units 06:20 Hgb 8.9 L (12.0-16.0) g/dL Hct 28.2 L (37-47) % BMP 02/13/21 06:20 Sodium 140 Potassium 4.0 Chloride 107 Carbon Dioxide 29 BUN 25 H Creatinine 1.08 Glucose 78 Calcium 8.9 (1) Anemia Anemia type: unspecified type Qualified Code(s): D64.9 - Anemia, unspecified
--- NOTE | 2021-02-13 15:16 | Discharge Summary ---
Date of Service February 13, 2021 Admission HPI Per Admitting Provider CHIEF COMPLAINT: Abnormal labs. 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 She was recently in the hospital in the first week of January with gastrointestinal bleed. At that time, hemoglobin was 5.8 and status post 2 units of PRBC and status post EGD showing small hiatal hernia and mild gastritis and she was also found to have acute bronchiolitis and treated with doxycycline and Rocephin. Also MRI of the brain showed acute left caudate infarction. By the time of discharge, she was restarted on aspirin and Plavix.History of pericardial effusion, but echocardiogram shows small pericardial effusion without tamponade. Since discharge, the patient and her are living with their son. Son noticed that she was getting fatigued and somewhat confused and also she has outpatient labs that shows hemoglobin was again 6.3 and she was brought to the hospital. Here hemoglobin is again 6.3. No obvious signs of bleeding. The patient was started on Protonix drip and one unit of prbc ordered in the ER. The patient is somewhat drowsy, opens eyes on calling, but not answering any questions. Could not get any review of systems from the patient. Son brought the patient to the hospital. Son was able to give some history to ER physician, but left to home and tried to call twice, but not answering the phone. The patient seemed hemodynamically stable, afebrile currently. Admission Exam Per Admitting Provider PHYSICAL EXAMINATION: GENERAL: The patient is somewhat drowsy, but opens eyes on calling, does not obey commands. Not answering any questions. HEENT: Pupils equal, round, and reactive to light. Oral mucosa moist. NECK: No JVD. No neck masses seen. CARDIOVASCULAR: S1, S2 heard, regular rate and rhythm, no murmur, no gallop. RESPIRATORY SYSTEM: Normal AP diameter. No accessory muscle use. No wheezing, no crackles. ABDOMEN: Soft, bowel sounds present. Mild diffuse abdominal discomfort. No guarding, no rigidity. CENTRAL NERVOUS SYSTEM: Drowsy, but opens eyes on calling, does not obey any commands. Moves extremities. EXTREMITIES: No edema, no erythema. Principal Diagnosis Symptomatic anemia Acute blood loss anemia Acute Metabolic Encephalopathy Chronic aspiration Discharge Data Allergies Allergy/AdvReac Type Severity Reaction Status Date / Time latex Allergy Unknown RASH Verified 02/04/21 22:33 No Known Drug Allergies Allergy Unknown . Verified 02/04/21 22:33 Consultations 02/05/21 00:31 ED Decision to Admit Stat 02/05/21 08:00 Consult Gastroenterology Routine Consult Neurology Routine Procedures Performed Operation Date: 02/06/21 16:30 Actual Procedures p Colonoscopy - Jason Laughlin MD CT Head:No significant change compared to the prior study. No acute intracranial abnormality. Chest x-ray:Increased markings at the lung bases favor atelectasis/mild dependent change. Otherwise, no acute process within the chest. Video swallow:Silent aspiration was observed with the thin barium and nectar thick liquid textures. Colonoscopy: Impression: - The examined portion of the ileum was normal. - Diverticulosis in the sigmoid colon. - Non-bleeding internal hemorrhoids. Recommendation: - Return patient to [facility] for [facility] care. - To visualize the small bowel, consider video capsule endoscopy as outpatient. - If any evidence of bleeding or no improvement in H/H then please obtain a bleeding scan. - Recall GI if needed. Bleeding scan No evidence for active GI bleed. Ordered Studies 02/04/21 22:53 CT head/brain wo con Urgent 02/09/21 11:30 FL video swallow Routine Hospital Course (1) Anemia: Symptomatic anemia Acute blood loss anemia In setting of recent GI bleed EGD on 01/27/21: Gastritis Colonoscopy on 02/06/21: Diverticulosis of the sigmoid colon. Nonbleeding internal hemorrhoids Bleeding Scan:No evidence for active GI bleed. S/P 3 Units PRBCs Continue IV Protonix Appreciate GI input Plan for video capsule endoscopy as outpatient Deferred antiplatelet therapy to neurology given recent stroke No active bleeding currently Plavix discontinued Aspirin resumed Hemoglobin stable Monitor CBC Hb stable Needs follow-up with GI, hematology upon discharge Acute Metabolic Encephalopathy H/O recent CVA CT Head:No significant change compared to the prior study. No acute intracranial abnormality. Confusion resolved Restarted Aspirin Appreciate Neurology Input Mental Status at baseline Brevundimonas diminuta Bacteremia 1/2 Positive Blood cultures on prior admission Repeat blood cultures negative No signs of infection currently Chronic aspiration Atelectasis Chest x-ray:Increased markings at the lung bases favor atelectasis/mild dependent change. Otherwise, no acute process within the chest. Video swallow:Silent aspiration was observed with the thin barium and nectar thick liquid textures. Risk for aspiration Continue aspiration precaution May need to be transition to pured diet if continues to aspirate Speech eval completed procalcitonin negative Incentive spirometer Hyperkalemia: Resolved Monitor CKD III Creatinine at baseline Monitor renal function H/O CVA Continue aspirin Plavix discontinued secondary to GI bleed Continue statin. Hypothyroidism: Continue Synthroid Hypertension: BP stable Monitor H/O ALL In remission Needs follow-up with oncology upon discharge DVT Px: SCDs Re: GI bleed Code Status Full Code Total Time Total Time Spent Total Time Spent (In Minutes): 44 minutes Total Time Includes: Examination of the Patient, Discharge Planning, Medication Reconciliation, Communication With Other Providers and Other Discharge Plan Discharge Items Patient Disposition: Home - Self-Care Reason For Visit: ANEMIA Discharge Diagnosis: Symptomatic anemia Acute blood loss anemia Acute Metabolic Encephalopathy Chronic aspiration Activity: Per Instructions section Exercise/Sports: Gradually increase as tolerated Non-emergency contact: Primary Care Provider, [employer] and Neurologist Call non-emergency contact if: you have any medication questions, your symptoms worsen, your pain is not controlled, your pain is worsening, your pain is concerning for you and you have a fever Follow-up/Referrals: Gildardo Ireland MD [Physician] - (Dr. Ireland's office will call with appointment date and time. ) Max Pendleton DO [Primary Care Provider] - (Date & Time 02/17/2021 11:00 AM Provider Max Pendleton DO Department [facility] ) Jason Laughlin MD [Hospitalist] - 04/22/21 10:20 am (Please follow up with Dr. Laughlin for video capsule endoscopy as outpatient for further evaluation of anemia on Tuesday04/22/21 at 10:20 am. Please arrive to the office at 10:05 am for your appointment. If you are unable to keep this appointment, please call the office to reschedule at [phone].) Dietitian Info: Minced and Mosit, NO STRAWS Diet: Heart Healthy Diet Texture: Easy to Chew Addtl Attending Provider Instructions: Follow-up with your primary care physician Dr. Pendleton on 02/17/2021 at 11:00 AM Follow-up with your client experience administrator Dr. Laughlin for video capsule endoscopy as outpatient for further evaluation of anemia Follow-up with your oncologist as recommended Follow-up with your neurologist Dr. Ireland in 4 weeks Continue aspiration precautions as advised by your Speech Therapist: Minced and moist diet, continue with thin liquids. Consider a slippery diet with any worsening difficulty swallowing. (SLIPPERY: Avoid foods that are dry, thick, pasty, doughy. Place extra condiments of food such as sauce/gravy/butter to keep foods moist) Aspiration precautions: No straws. Small single sips. Alternate solids and liquids. Supervised meals. Fully alert and upright with food intake. Single bites/small sips/slow rate. Oral Hygiene. Medications Changes: Your lisinopril is decreased to 5 mg daily, due to relatively low blood pressure during your hospital stay Start taking pantoprazole 40 mg twice a day until further recommendations by your client experience administrator Your Plavix (Clopidogrel ) is discontinued secondary to blood loss anemia. Further recommendations based on evaluation by gastroenterology, neurology as outpatient. Seek immediate medical attention if your symptoms reoccur or worsen Please take all medications as instructed on discharge list below. Please call if you have any questions or problems. You can reach a [facility] hospitalist on duty at [facility] 24 hours a day by calling [phone] Pending Studies at Discharge: No Stand-Alone Forms: My [facility], Smoking Cessation Medications and DC Order Prescriptions: Continued atorvastatin 40 mg tablet 40 mg PO QAM RF: 0 levothyroxine 50 mcg tablet 50 mcg PO QAM RF: 0 omega 1-ffd-nwa-fish oil [Fish Oil] 1,000 mg (120 mg-180 mg) Capsule 1 cap PO QAM RF: 0 calcium carbonate-vitamin D3 [Os-Tobias 500 + D3] 500mg (1,250mg) -600 unit Tablet 1 tab PO QAM RF: 0 multivitamin Tablet 1 tab PO DAILY RF: 0 acetaminophen [Tylenol] 325 mg Tablet 325 mg PO QID PRN (Reason: Pain) RF: 0 aspirin 81 mg Tablet,Chewable 81 mg PO DAILY RF: 0 albuterol sulfate 90 mcg/actuation Hfa Aerosol Inhaler 2 inh INHALATION Q4 PRN (Reason: Shortness Of Breath Or Wheezing) RF: 0 docusate sodium 100 mg Tablet 100 mg PO BID RF: 0 loratadine [Claritin] 10 mg Tablet 10 mg PO DAILY RF: 0 simethicone 80 mg Tablet 80 mg PO Q6 PRN (Reason: bloating) RF: 0 guaifenesin [Mucinex] 600 mg Tablet Extended Release 12hr 600 mg PO Q12 Qty: 14 RF: 0 Changed pantoprazole 40 mg Tablet,Delayed Release (Dr/Ec) 40 mg PO BID Qty: 60 RF: 1 lisinopril 10 mg tablet 5 mg PO QAM Qty: 0 RF: 0 Discontinued clopidogrel 75 mg tablet 75 mg PO QAM RF: 0 Discharge Orders: Discharge Order (Routine); Ordered 02/13/21 Ordered By: Al Mccollum Admission Data Admit Date/Time: 02/05/21 01:28 Attending Provider: Al Mccollum Admit Provider: Fernandez Nunez Primary Care Provider: Max Pendleton Other Providers: Fernandez Nunez ; Regina Clark ; Estrella Rivera ; Gildardo Ireland ; Estrella Garcia ; Zaid Das Other Interventions: Discharge Summary Assessment (RN) Last Done: 02/13/21 14:09
== END 2021-02-13 17:04 | disposition home or self-care (01) | DRG 811 ==
LOC: ED 22:04 → SUATTDRO 02-05 01:28 → 1E 02-05 01:28 → 2E 02-05 17:00

== ENCOUNTER 2021-03-04 13:44 | Observation (INO) ==
[2021-03-04] MEDS ORDERED: SODIUM CHLORIDE 0.9% 250 ML IV PRN ×3 (14:15→15:44)
--- NOTE | 2021-03-04 14:33 | Emergency Department Note ---
Impression & Plan SOB (shortness of breath), Anemia, Weakness, GI bleed ED Provider Note NAME: SHAN GRAY AGE: 70 SEX: F : 1950 ARRIVES VIA: Walk-In INFORMANT: [Patient][family] ED PROVIDER(S): [Jim Ruelas MD] CHIEF COMPLAINT: Abnormal laboratories HISTORY OF PRESENT ILLNESS: The patient is a 70-year-old female who has intermittent GI bleeding now thought to be from the small intestine. The source has not been localized. She was in the hospital recently for a blood transfusion because of anemia. She was sent today because outpatient laboratory testing showed a hemoglobin of 6.8. She has had blood in her stool. Her doctor's office thought a bleeding scan might be able to find the source of her problem. The patient does admit to some shortness of breath with exertion. She has been more fatigued especially the last 3 days. No chest pain. No fever or chills. Her family has noticed she has been more short of breath with walking and she has been more tired. The patient has not had fever, there has been no cough or congestion. No abdominal pain. REVIEW OF SYSTEMS: See HPI for pertinent positives and negatives. A total of ten systems were reviewed and were otherwise negative. PMHx/PSHx: See Below SOCIAL HISTORY: See Below. PHYSICAL EXAM: GENERAL: Patient is in no acute distress. HEENT: No acute trauma, normocephalic atraumatic, mucous membranes moist, no nasal congestion, no scleral icterus. NECK: No stridor, no adenopathy, no meningismus, trachea is midline. LUNGS: Clear to auscultation bilaterally, no wheeze, no rhonchi, breath sounds equal. HEART: 2/6 systolic murmur, regular rate and rhythm. ABDOMEN: Soft, nontender, bowel sounds positive, no hernias, no peritonitis. EXTREMITIES: No cyanosis, mild bilateral pedal edema, full range of motion of all the joints without pain or difficulty, no signs for acute trauma. NEUROLOGIC: Oriented x 3, no acute motor or sensory deficits, no focal weakness. SKIN: No rash, no jaundice, no diaphoresis. DIFFERENTIAL DIAGNOSIS: Infection, dehydration, metabolic abnormality, hypo/hyperglycemia, electrolyte disturbance, anemia, GI bleeding, hypoxia, cardiac sources, intracerebral event, toxicologic issues, stroke, TIA, as well as other pathologies. EMERGENCY DEPARTMENT COURSE/PROCEDURES: ECG: Indication was weakness. The ECG shows a normal sinus rhythm with a rate of 80. There is no ST elevation, no PVCs. QTC is 470. Continuous Cardiac Monitoring: An order was placed for continuous cardiac monitoring. The monitor shows a rate of 84 with normal sinus rhythm. Critical Care Note: I have personally spent 41 minutes of critical care time in the direct management of this patient. This includes bedside care, interpretation of diagnostic studies, and testing, discussion with consultants, patient, and family members, and other required patient management activities. This 41 minutes is in excess of all separately billable procedures. MEDICAL DECISION MAKING: There is no leukocytosis. The patient's hemoglobin was low at 6.7. There was a normal platelet count. No significant electrolyte abnormality or kidney failure. No concerning liver enzyme elevation. The patient appeared to be in a euthyroid state. ECG shows a sinus rhythm, no acute ischemia. Cardiac enzyme testing x1 does show a slight elevation. Patient has a history of an elevated troponin when looking back at previous testing. Chest x-ray did not show any obvious pneumonia, there may be some atelectasis at the right base. There was no CHF. Urinalysis is consistent with possible infection. The patient does not really have any urinary complaints though. Covid test is negative. The patient was ordered for 1 unit of blood for transfusion. The appropriate paperwork was signed. The patient presents with shortness of breath and weakness. She was anemic. She has had this issue before. She is in need of a hospital stay for further transfusion and possibly further work-up for her GI bleeding. At this point, the source for the bleeding is unknown. I spoke to the family, I talked with the case management team, the on-call hospitalist was consulted. 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 History of sinus surgery Status post bilateral hip replacements Family History Other Family history unobtainable due to patient's condition Social History Smoking Status: Never smoker Second Hand Exposure: No; Hx Alcohol Use: No Hx Substance Use: No Preferred Language: Azeri Communication Ability: Effective 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 Verified 02/04/21 22:33 Home Meds Home Medications Medication Instructions Recorded Confirmed atorvastatin 40 mg PO QAM 10/06/18 03/04/21 calcium carbonate-vitamin D3 1 tab PO QAM 10/06/18 03/04/21 [Os-Tobias 500 + D3] levothyroxine 50 mcg PO QAM 10/06/18 03/04/21 omega 2-dwi-lxc-fish oil [Fish Oil] 1 cap PO QAM 10/06/18 03/04/21 acetaminophen [Tylenol] 325 mg PO QID PRN 01/24/21 03/04/21 albuterol sulfate 2 inh INHALATION Q4 PRN 01/24/21 03/04/21 aspirin 81 mg PO DAILY 01/24/21 03/04/21 docusate sodium 100 mg PO BID 01/24/21 03/04/21 loratadine [Claritin] 10 mg PO DAILY 01/24/21 03/04/21 multivitamin 1 tab PO DAILY 01/24/21 03/04/21 simethicone 80 mg PO Q6 PRN 01/24/21 03/04/21 ferrous sulfate 325 mg PO BID 03/04/21 03/04/21 Previous Rx's Medication Instructions Recorded guaifenesin [Mucinex] 600 mg PO Q12 #14 tab 01/29/21 lisinopril 5 mg PO QAM #0 tab 02/13/21 pantoprazole 40 mg PO BID #60 tab 02/13/21 Results & Data (ED) Vital Signs Vital Signs - 24 hr 03/04/21 13:54 03/04/21 14:30 03/04/21 15:00 Temperature 36.7 C Temperature Source Temporal Artery Scan Pulse Rate 81 85 74 Pulse Rate from SpO2 Sensor 84 74 Respiratory Rate 17 17 20 Respiratory Effort / Characteristics Non-Labored Spontaneous Respiratory Depth Normal Respiratory Pattern Regular Blood Pressure 123/72 125/90 131/94 Blood Pressure Mean 89 101 106 Pulse Oximetry 96 98 97 Oxygen Delivery Method Room Air Sepsis Recent Fever Within 48 Hours No Sepsis New/Unexplained Change in Mental Status No Sepsis Action Taken by Nursing No Action Required 03/04/21 15:30 Temperature Temperature Source Pulse Rate 77 Pulse Rate from SpO2 Sensor 76 Respiratory Rate 15 Respiratory Effort / Characteristics Respiratory Depth Respiratory Pattern Blood Pressure 132/80 Blood Pressure Mean 97 Pulse Oximetry 98 Oxygen Delivery Method Sepsis Recent Fever Within 48 Hours Sepsis New/Unexplained Change in Mental Status Sepsis Action Taken by Prison Medications Current Medication List: was personally reviewed by me Laboratory Data Attestation: I reviewed the patient's lab results. Result diagrams: 03/04/21 19:56 03/04/21 14:14 Lab Results 03/04/21 03/04/21 03/04/21 Range/Units 14:13 14:14 14:14 WBC 6.27 (4.8-10.8) K/uL RBC 2.55 L (4.2-5.4) M/uL Hgb 6.7 L* (12.0-16.0) g/dL Hct 22.6 L (37-47) % MCV 88.6 (80-100) fL MCH 26.3 (25-34) pg MCHC 29.6 L (32-36) g/dL RDW Std Deviation 55.9 H (36.4-46.3) fL RDW Coeff of Ruddy 17.0 H (11.5-14.5) % Plt Count 344 (130-400) K/uL MPV 8.6 (7.4-10.4) fL Immature Gran % (Auto) 0.2 % Neut % (Auto) 58.7 % Lymph % (Auto) 30.0 % Wheeler % (Auto) 8.5 % Eos % (Auto) 2.1 % Baso % (Auto) 0.5 % Neut # (Auto) 3.69 (1.4-6.5) K/uL Lymph # (Auto) 1.88 (1.2-3.4) K/uL Wheeler # (Auto) 0.53 (0.11-0.59) K/uL Eos # (Auto) 0.13 (0-0.5) K/uL Baso # (Auto) 0.03 (0-0.2) K/uL Immature Gran # (Auto) 0.01 (0.00-0.02) K/uL Ovalocytes 1+ Sodium 139 (136-145) mmol/L Potassium 4.2 (3.5-5.1) mmol/L Chloride 106 (98-107) mmol/L Carbon Dioxide 31 (21-32) mmol/L Anion Gap 2.0 L (3-11) BUN 27 H (7-18) mg/dl Creatinine 1.20 (0.6-1.2) mg/dl Est Cr Clr Drug Dosing Not Reportable Est GFR ( Amer) 52.3 ml/min Est GFR (Non-Af Amer) 45.1 ml/min BUN/Creatinine Ratio 22.2 H (10-20) Glucose 83 (70-99) mg/dl Calcium 8.8 (8.5-10.1) mg/dl Magnesium 2.2 (1.8-2.4) mg/dl Total Bilirubin 0.4 (0.2-1) mg/dl AST 23 (15-37) U/L ALT 21 (12-78) U/L Alkaline Phosphatase 79 (45-117) U/L Troponin I 0.070 H* (0-0.045) ng/ml Total Protein 6.2 L (6.4-8.2) gm/dl Albumin 3.2 L (3.4-5.0) gm/dl Globulin 3.0 (2.5-4.0) gm/dl Albumin/Globulin Ratio 1.1 (0.9-2) TSH 4.450 (0.300-4.500) uIu/ml COVID-19 Eval Order SARS-CoV-2 (PCR) (Negative) Blood Type O Positive Antibody Screen NEGATIVE Crossmatch See Detail 03/04/21 03/04/21 Range/Units 14:17 14:17 WBC (4.8-10.8) K/uL RBC (4.2-5.4) M/uL Hgb (12.0-16.0) g/dL Hct (37-47) % MCV (80-100) fL MCH (25-34) pg MCHC (32-36) g/dL RDW Std Deviation (36.4-46.3) fL RDW Coeff of Ruddy (11.5-14.5) % Plt Count (130-400) K/uL MPV (7.4-10.4) fL Immature Gran % (Auto) % Neut % (Auto) % Lymph % (Auto) % Wheeler % (Auto) % Eos % (Auto) % Baso % (Auto) % Neut # (Auto) (1.4-6.5) K/uL Lymph # (Auto) (1.2-3.4) K/uL Wheeler # (Auto) (0.11-0.59) K/uL Eos # (Auto) (0-0.5) K/uL Baso # (Auto) (0-0.2) K/uL Immature Gran # (Auto) (0.00-0.02) K/uL Ovalocytes Sodium (136-145) mmol/L Potassium (3.5-5.1) mmol/L Chloride (98-107) mmol/L Carbon Dioxide (21-32) mmol/L Anion Gap (3-11) BUN (7-18) mg/dl Creatinine (0.6-1.2) mg/dl Est Cr Clr Drug Dosing Est GFR ( Amer) ml/min Est GFR (Non-Af Amer) ml/min BUN/Creatinine Ratio (10-20) Glucose (70-99) mg/dl Calcium (8.5-10.1) mg/dl Magnesium (1.8-2.4) mg/dl Total Bilirubin (0.2-1) mg/dl AST (15-37) U/L ALT (12-78) U/L Alkaline Phosphatase (45-117) U/L Troponin I (0-0.045) ng/ml Total Protein (6.4-8.2) gm/dl Albumin (3.4-5.0) gm/dl Globulin (2.5-4.0) gm/dl Albumin/Globulin Ratio (0.9-2) TSH (0.300-4.500) uIu/ml COVID-19 Eval Order Covid19 at [facility] SARS-CoV-2 (PCR) NEGATIVE (Negative) Blood Type Antibody Screen Crossmatch Administered Medications Docusate Sodium (Docusate Sodium 100 Mg Cap) 100 mg PO BID MORENITA Stop: 04/03/21 20:59 Last Admin: 03/04/21 19:58 Dose: Not Given Documented by: [id number] Ferrous Sulfate (Ferrous Sulfate 325 Mg Tab) 325 mg PO BID MORENITA Stop: 04/03/21 20:59 Last Admin: 03/04/21 19:58 Dose: Not Given Documented by: [id number] Guaifenesin (Guaifenesin 600 Mg Tabcr) 600 mg PO Q12 MORENITA Stop: 04/03/21 20:59 Last Admin: 03/04/21 19:59 Dose: 600 mg Documented by: [id number] Pantoprazole Sodium 40 mg/ (Syringe) 10 mls @ 5 mls/min IV BID MORENITA Stop: 04/03/21 20:59 Last Admin: 03/04/21 19:59 Dose: 5 mls/min Documented by: [id number] Ciprofloxacin (Cipro / D5w) 400 mg in 200 mls @ 100 mls/hr IV Q12H MORENITA; Protocol Stop: 03/09/21 18:30 Last Admin: 03/04/21 19:59 Dose: 100 mls/hr Documented by: [id number] Imaging Data Radiologist's Impression: Chest X-Ray 03/04/21 14:15 XR chest 1V portable HISTORY: 70 years-old Female weakness acute weakness COMPARISON: Chest radiograph 02/12/2021 TECHNIQUE: Portable AP view of the chest FINDINGS: Cardiac silhouette is upper limits of normal in size. Mitral annular calcifications. Calcified plaque of the thoracic aorta. No pneumothorax, pleural effusion, airspace consolidation or overt pulmonary edema. Mild interstitial coarsening of the right lung base. Degenerative changes of the shoulders and spine. IMPRESSION: Mild interstitial coarsening of the right lung base suggestive of atelectasis versus pneumonitis. ACT 112: Negative or not required by law. The above report was generated using voice recognition software. It may contain grammatical, syntax or spelling errors. Electronically signed by: Josh Marino M.D. 03/04/2021 2:35 PM Discharge Plan Visit Data Chief Complaint: Referred by Doctor Stated Complaint: NEEDS BLOOD TRANSFUSION ED Provider: Jim Reulas Discharge Problem: SOB (shortness of breath), Anemia, Weakness, GI bleed Patient Disposition: Admitted As Inpatient Condition: Fair Discharge Instructions Interventions: ED Discharge Assessment Last Done: 03/04/21 18:00 Discharge Problem: Anemia Qualifiers: Anemia type: unspecified type Qualified Code(s): D64.9 - Anemia, unspecified GI bleed Qualifiers: GI bleed type/associated pathology: unspecified gastrointestinal hemorrhage type Qualified Code(s): K92.2 - Gastrointestinal hemorrhage, unspecified
--- NOTE | 2021-03-04 14:36 | XRay Report ---
XR chest 1V portable HISTORY: 70 years-old Female weakness acute weakness COMPARISON: Chest radiograph 02/12/2021 TECHNIQUE: Portable AP view of the chest FINDINGS: Cardiac silhouette is upper limits of normal in size. Mitral annular calcifications. Calcified plaque of the thoracic aorta. No pneumothorax, pleural effusion, airspace consolidation or overt pulmonary edema. Mild interstitial coarsening of the right lung base. Degenerative changes of the shoulders and spine. IMPRESSION: Mild interstitial coarsening of the right lung base suggestive of atelectasis versus pneu monitis. ACT 112: Negative or not required by law. The above report was generated using voice recognition software. It may contain grammatical, syntax o r spelling errors. Electronically signed by: Josh Marino M.D. 03/04/2021 2:35 PM
[2021-03-04 14:42] LABS: Hematocrit (blood only) 22.6 % (37-47); Hemoglobin 6.7 g/dL (12.0-16.0); Mean Corpuscular Hemoglobin 26.3 pg (25-34); Mean Corpuscular Hgb Conc 29.6 g/dL (32-36); Mean Corpuscular Volume 88.6 fL (80-100); Mean Platelet Volume 8.6 fL (7.4-10.4); Platelet Count 344 K/uL (130-400); RDW Standard Deviation 55.9 fL (36.4-46.3); Red Blood Count 2.55 M/uL (4.2-5.4); White Blood Count 6.27 K/uL (4.8-10.8)
[2021-03-04 14:46] LABS: Alanine Aminotransferase 21 U/L (12-78); Albumin Level 3.2 gm/dl (3.4-5.0); Aspartate Aminotransferase 23 U/L (15-37); BUN Creatinine Ratio 22.2 (10-20); Blood Urea Nitrogen 27 mg/dl (7-18); Calcium 8.8 mg/dl (8.5-10.1); Carbon Dioxide 31 mmol/L (21-32); Chloride 106 mmol/L (98-107); Est GFR (African American) 52.3 ml/min; Est GFR (Non-African American) 45.1 ml/min; Glucose 83 mg/dl (70-99); Magnesium 2.2 mg/dl (1.8-2.4); Potassium 4.2 mmol/L (3.5-5.1); Sodium 139 mmol/L (136-145)
[2021-03-04 15:02] LABS: Albumin Globulin Ratio 1.1 (0.9-2); Alkaline Phosphatase 79 U/L (45-117); Bilirubin,Total 0.4 mg/dl (0.2-1); Total Protein 6.2 gm/dl (6.4-8.2)
[2021-03-04 15:16] LABS: Basophils # (auto) 0.03 K/uL (0-0.2); Basophils % (auto) 0.5 %; Eosinophils # (auto) 0.13 K/uL (0-0.5); Eosinophils % (auto) 2.1 %; Immature Granulocytes # (auto) 0.01 K/uL (0.00-0.02); Immature Granulocytes % (auto) 0.2 %; Lymphocytes # (auto) 1.88 K/uL (1.2-3.4); Monocytes # (auto) 0.53 K/uL (0.11-0.59); Monocytes % (auto) 8.5 %; Neutrophils # (auto) 3.69 K/uL (1.4-6.5); Neutrophils % (auto) 58.7 %; Ovalocytes 1+
[2021-03-04 15:24] LABS: Appearance Urine Clear (Clear); Bacteria Urine Automated 1+ (Negative); Bilirubin Urine Negative (Negative); Blood Urine Trace (Negative); Color Urine Yellow; Epithelial Cell Urine Auto 0-5 /lpf (0-5); Glucose Urine UA Negative (Negative); Ketones Urine Negative (Negative); Leukocyte Esterase Urine 3+ (Negative); Nitrite Urine Negative (Negative); Protein Urine Negative (Negative); RBC Urine Automated 0-4 /hpf (0-4); Specific Gravity Urine 1.005 (1.000-1.030); Urobilinogen Urine Negative (Negative); WBC Urine Automated >30 /hpf (0-5); pH Urine 7.5 (4.5-7.5)
--- NOTE | 2021-03-04 15:36 | History & Physical Report ---
Date of Service March 04, 2021 Assessment & Plan (1) Acute GI bleeding: -Admit to telemetry -Hemoglobin of 6.7 in the ER, noted to be 6.8 on outpatient records-was sent in from gastroenterology for transfusion and nuclear medicine GI scan -Nuclear medicine GI scan is not available in the house but can order it and will be sent to the hospital, will allow her clear liquid diet tonight and n.p.o. after midnight -GI consulted -Repeat H&H at 2000 along with troponin secondary to it being mildly elevated at 0.07, unlikely ACS as the patient does not endorse any cardiac symptoms. Most likely demand ischemia. -BUN 27, creatinine 1.2, both slightly elevated compared to her last lab work done on 02/13/2021 (2) Anemia: -History of such, has been working with GI and was scheduled to have an outpatient capsule endoscopy however had not been completed yet. Due to her worsening anemia secondary to a slow GI bleed will order a nuclear medicine GI scan. -As above (3) Dysuria: -Patient notes increased burning with urination, increased frequency, UA suspicious for UTI with positive esterase, WBC greater than 30 and urine bacteria 1+, follow culture -Start IV ceftriaxone (4) History of CVA (cerebrovascular accident): -Occurred during last admission, neurology recommended DC of Plavix but continuing baby aspirin (5) Meningioma: - Hx of such, chronic, stable DVT ppx: - teds, scds CODE: Full code Dispo: From home, likely to remain in the hospital x 1-2 days History of Present Illness Primary Care Provider: Max Pendleton, This is a 70 yo F with PMHx of HTN, HLD, 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 Recent admission from 01/24/21 -02/01/21 due to anemia with GI bleed with hgb of 5.8 on admission requiring transfusion, as well as new CVA with left caudate infarction and pericardial effusions. Was restarted on aspirin and plavix. Recent admission from 02/05/21 - 02/13/21 with recurrent anemia with hgb of 6.3. She was taken off plavix but maintained on aspirin per neurology. and GI had the patient scheduled for outpatient capsule endoscopy. Pt had barium swallow which revealed that she is at risk for silent aspiration. Patient was placed on nectar thick liquid. The patient's and her [id number] are present at bedside and supports the history. Pt was seen by her precision lens grinder apprentice earlier today for follow up. She complaints of increased fatigue and dyspnea on exertion, she is noticing more blood in her stools. He is having 1 bowel movement every other day or once daily. Denies any abdominal pain. Patient has been doing well with eating and drinking with easy to chew foods, and nectar thick liquids due to her risk for being a silent aspirator. She was found to have hemoglobin of 6.8 on outpatient review, therefore was sent to the ER. It has been requested that she gets a nuclear bleeding scan. Patient has been ordered blood transfusion of 1 unit with another one on hold, which is being started at bedside during my visit. Also noticed increased WBC on UA, patient admits to burning with urination over the past 3 days and increased incontinence. She reports wearing a brief/pad daily. Patient has elevated troponin however is likely secondary to demand ischemia as she does not endorse any cardiac symptoms. Patient did take her morning medications today including baby aspirin. Allergies Allergy/AdvReac Type Severity Reaction Status Date / Time latex Allergy Unknown RASH Verified 02/04/21 22:33 No Known Drug Allergies Allergy Unknown . Verified 02/04/21 22:33 Home Medications Medication Instructions Recorded Confirmed Type atorvastatin 40 mg PO QAM 10/06/18 03/04/21 History calcium carbonate-vitamin D3 1 tab PO QAM 10/06/18 03/04/21 History [Os-Tobias 500 + D3] levothyroxine 50 mcg PO QAM 10/06/18 03/04/21 History omega 1-chg-yks-fish oil [Fish Oil] 1 cap PO QAM 10/06/18 03/04/21 History acetaminophen [Tylenol] 325 mg PO QID PRN 01/24/21 03/04/21 History albuterol sulfate 2 inh INHALATION Q4 PRN 01/24/21 03/04/21 History aspirin 81 mg PO DAILY 01/24/21 03/04/21 History docusate sodium 100 mg PO BID 01/24/21 03/04/21 History loratadine [Claritin] 10 mg PO DAILY 01/24/21 03/04/21 History multivitamin 1 tab PO DAILY 01/24/21 03/04/21 History simethicone 80 mg PO Q6 PRN 01/24/21 03/04/21 History guaifenesin [Mucinex] 600 mg PO Q12 #14 tab 01/29/21 03/04/21 Rx lisinopril 5 mg PO QAM #0 tab 02/13/21 03/04/21 Rx pantoprazole 40 mg PO BID #60 tab 02/13/21 03/04/21 Rx ferrous sulfate 325 mg PO BID 03/04/21 03/04/21 History Past Med/Surg History Medical History (Updated 03/04/21 @ 16:25 by Vee Singh PA-C) Abnormal liver function tests Adnexal mass CT [facility] 05/01/20 - 7.2 x 4.8 cm cystic L adnexal mass Altered mental status Anemia Cholelithiasis CT [facility] 05/01/20 Dementia GI bleed History of acute lymphoid leukemia History of adenomatous polyp of colon Meningioma " interhemispheric frontal mass 4 x 9 mm per MRI 01/25/14" Surgical History 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 History of sinus surgery Status post bilateral hip replacements Family History Other Family history unobtainable due to patient's condition Social History Smoking Status: Never smoker Second Hand Exposure: No; Hx Alcohol Use: No Hx Substance Use: No Preferred Language: Occitan Communication Ability: Effective Cashiers Bussers Food Runners Required: No Beliefs That Will Affect Care: None marital status: Current Living Situation: Spouse Current Living Situation Comment: lives with son and current occupational status: retired Other Information That Helps Us Care for You: No Feels Safe at Home: Yes Safety Concerns: Feels Safe At This Time Assistive Devices: Cane, Denture - Upper, Denture - Lower and Walker Review of Systems Review of Systems: Constitutional: No fever, sweats or chills, + fatigue Eyes: No diplopia, no worsening or blurred vision ENT: normal hearing, no trouble swallowing Respiratory: No cough, sputum, + dyspnea on exertion, not at rest Cardiovascular: No chest pain, tightness or palpitations Abdomen: No pain, nausea, vomiting, diarrhea or constipation, noticing dark tarry stools, no bright red blood, bowel movement once or every other day. Last bowel movement was today. Musculoskeletal: No joint pain, calf pain, swelling Neurologic: + Generalized weakness, no numbness/tingling, or balance problems, no recent falls. Psychiatric: No anxiety or depression Skin: No rash or itch Physical Exam Physical Exam: General: awake, alert, no apparent distress, + fatigue Head: Normocephalic, atraumatic ENT: PERRL, EOMI, no pharyngeal exudate, mucous membranes moist Chest: on room air, coarse breath sounds throughout, no wheeze or rhonchi Cardiac: Regular rate and rhythm, no murmur, no JVD, normal peripheral pulses, good capillary refill Abdominal: NABS x 4 quadrants, soft, nondistended, nontender to palpation, no rebound or guarding Extremities: Normal inspection, no peripheral edema or erythema, calfs nontender to palpation Psych: Normal mood and affect Neuro: AAO x 3, strength intact bilaterally and rated 5/5, no motor deficits, speech is clear, no peripheral sensory deficits Results & Data Results & Data ([facility]) Vital Signs (Past 12 Hours) Vital Signs Temp Pulse Resp BP Pulse Ox 03/04/21 13:54 36.7 C 81 17 123/72 96 Diagnostic Findings Chest X-Ray 03/04/21 14:15 XR chest 1V portable HISTORY: 70 years-old Female weakness acute weakness COMPARISON: Chest radiograph 02/12/2021 TECHNIQUE: Portable AP view of the chest FINDINGS: Cardiac silhouette is upper limits of normal in size. Mitral annular calcifications. Calcified plaque of the thoracic aorta. No pneumothorax, pleural effusion, airspace consolidation or overt pulmonary edema. Mild interstitial coarsening of the right lung base. Degenerative changes of the shoulders and spine. IMPRESSION: Mild interstitial coarsening of the right lung base suggestive of atelectasis versus pneumonitis. ACT 112: Negative or not required by law. The above report was generated using voice recognition software. It may contain grammatical, syntax or spelling errors. Electronically signed by: Josh Marino M.D. 03/04/2021 2:35 PM ECG Additional Comments: 04-MAR-2021 14:06:43 [facility]-EDSTAT ROUTINE RETRIEVAL Normal sinus rhythm Normal ECG When compared with ECG of 04-FEB-2021 22:36, No significant change was found 25mm/s 10mm/mV 150Hz 9.0.9 12SL 241 MICHELLE: 13 Unconfirmed Vent. rate 80 BPM VT interval 138 ms QRS duration 80 ms QT/QTc 408/470 ms Code Status & VTE Plan Code Status Full code-discussed with the patient at bedside Supervising Physician Co-Signing Physician Notes Patient is a 70-year-old female with history of hypothyroidism, hypertension, hyperlipidemia, CVA, CKD stage III, leukemia, GI bleed and other medical problems presents with history of dyspnea on exertion, fatigue, melena. She denies any chest pain, abdominal pain currently. She had extensive work-up for GI bleed on prior admission. She was noted to have nonbleeding internal hemorrhoids, diverticulosis of the sigmoid colon. She received 3 units of blood transfusions during prior admission. She was planned to have video capsule endoscopy as outpatient. She was recently diagnosed to have CVA and currently on aspirin. He was noted to have hemoglobin of 6.7 today. Noted chronic troponin elevation currently at 0.070. EKG showed no signs of acute ischemia. UA suggestive of possible UTI. On exam patient is moderately built and nourished, no apparent distress, normocephalic atraumatic, lungs are clear to auscultation, coarse breath sounds, S1-S2, no murmur, no pedal edema, abdomen soft, nontender, normal bowel sounds, alert, awake, grossly no focal deficits. Patient is admitted for management of symptomatic anemia, GI bleed, possible UTI. Will hold aspirin for now. Start on IV PPI. Consult gastroenterology. Received 1 unit of PRBCs while in ED. Trend H&H and transfuse as needed. Acute leukemia likely contributing to anemia. Will need oncology evaluation as out patient. Will start on ciprofloxacin empirically for UTI based on prior cultures. Aspiration precautions. I personally reviewed the record. Patient is interviewed and examined at bedside. Patient's care is coordinated with Vee Singh PA-C. Please refer to the documentation above for details of patient's presentation and for discussion of other issues. (1) Anemia Anemia type: unspecified type Qualified Code(s): D64.9 - Anemia, unspecified
[2021-03-04] MEDS ORDERED: ONDANSETRON INJ 2 MG/ML 2 ML VIAL IV PRN (18:31)
[2021-03-04] MEDS ORDERED: ACETAMINOPHEN 325 MG TAB PO PRN (18:31)
[2021-03-04] MEDS ORDERED: ALBUTEROL HFA 8 GM INHALER INH PRN (18:31)
[2021-03-04] MEDS ORDERED: SIMETHICONE 80 MG CHEW PO PRN (18:50)
[2021-03-04] MEDS: FERROUS SULFATE 325 MG TAB PO SCH (19:58)
[2021-03-04] MEDS: DOCUSATE SODIUM 100 MG CAP PO SCH (19:58)
[2021-03-04] MEDS: PANTOprazole 40 MG in SYRINGE 0 ML IV SCH (19:59)
[2021-03-04] MEDS: CIPROFLOXACIN / D5W 400 MG/200 ML BAG IV SCH (19:59)
[2021-03-04] MEDS: guaiFENesin 600 MG TABCR PO SCH (19:59)
[2021-03-04 20:09] LABS: Hematocrit (blood only) 26.8 % (37-47); Hemoglobin 8.3 g/dL (12.0-16.0)
[2021-03-05 04:33] LABS: Hematocrit (blood only) 24.6 % (37-47); Hemoglobin 7.8 g/dL (12.0-16.0); Mean Corpuscular Hemoglobin 27.2 pg (25-34); Mean Corpuscular Hgb Conc 31.7 g/dL (32-36); Mean Corpuscular Volume 85.7 fL (80-100); Mean Platelet Volume 8.2 fL (7.4-10.4); Platelet Count 269 K/uL (130-400); RDW Coefficient of Variation 16.5 % (11.5-14.5); RDW Standard Deviation 51.5 fL (36.4-46.3); Red Blood Count 2.87 M/uL (4.2-5.4); White Blood Count 5.63 K/uL (4.8-10.8)
[2021-03-05 04:52] LABS: Albumin Level 2.8 gm/dl (3.4-5.0); BUN Creatinine Ratio 18.4 (10-20); Calcium 8.5 mg/dl (8.5-10.1); Creatinine Clr Calc Pharmacy 37.8 ml/min; Est GFR (African American) 51.8 ml/min; Est GFR (Non-African American) 44.7 ml/min
[2021-03-05 04:58] LABS: Bilirubin,Total 0.5 mg/dl (0.2-1); Globulin 2.9 gm/dl (2.5-4.0); Total Protein 5.7 gm/dl (6.4-8.2); Troponin I 0.064 ng/ml (0-0.045)
[2021-03-05] MEDS ORDERED: SODIUM CHLORIDE 0.9% 250 ML IV PRN (06:09)
[2021-03-05] MEDS: CIPROFLOXACIN / D5W 400 MG/200 ML BAG IV SCH (06:29)
[2021-03-05] MEDS: LEVOTHYROXINE SODIUM 50 MCG TABLET PO SCH (06:36)
--- NOTE | 2021-03-05 06:56 | Electrocardiogram Report ---
Test Reason : Blood Pressure : / mmHG Vent. Rate : 080 BPM Atrial Rate : 080 BPM P-R Int : 138 ms QRS Dur : 080 ms QT Int : 408 ms P-R-T Axes : 061 040 046 degrees QTc Int : 470 ms Normal sinus rhythm Normal ECG When compared with ECG of 04-FEB-2021 22:36, No significant change was found Confirmed by Calderon Shi ([id number]) on 03/05/2021 6:56:35 AM Referred By: Confirmed By:Calderon Shi
[2021-03-05] MEDS: DOCUSATE SODIUM 100 MG CAP PO SCH ×2 (08:36→21:25)
[2021-03-05] MEDS: CALCIUM CARBONATE 1250MG TAB PO SCH (08:37)
[2021-03-05] MEDS: LORATADINE 10 MG TAB PO SCH (08:37)
[2021-03-05] MEDS: MULTIVITAMIN TAB PO SCH (08:37)
[2021-03-05] MEDS: ATORVASTATIN 40 MG TAB PO SCH (08:37)
[2021-03-05] MEDS: OMEGA-3 (PURIFIED FISH OIL) 1 GM CAP PO SCH (08:37)
[2021-03-05] MEDS: FERROUS SULFATE 325 MG TAB PO SCH ×2 (08:37→21:25)
[2021-03-05] MEDS: guaiFENesin 600 MG TABCR PO SCH ×2 (08:37→21:26)
[2021-03-05] MEDS ORDERED: ASPIRIN 81 MG ECTAB PO SCH (09:00)
[2021-03-05] MEDS ORDERED: FUROSEMIDE 20 MG in SYRINGE 0 ML IV SCH (09:00)
--- NOTE | 2021-03-05 10:01 | Gastrointestinal Consultation ---
Date of Consultation March 05, 2021 Assessment & Plan (1) Anemia: Appreciate primary services management of blood transfusions and IV fluids. Will watch for results of GI bleeding scan but expect will be normal. Plan for OP VCE being arranged ANAHY by our office. Present on Admission?: Yes (2) Complaint of melena: Supervising Physician Co-Signing Physician Notes Late entry: Patient was seen and examined on 03/05. I performed a history and physical examination of the patient today, including specifically on physical exam - soft abdomen. I have discussed the patient's management with the advanced practitioner. Please refer to the nurse practitioner's note for the documented findings and plan of care. No further melena. H/H stable. VCE as OP. History of Present Illness Reason for Consultation: Recurrent GI Bleed Requesting Physician: Wendy Singh PA-C Attending Physician: Schuyler Dempsey MD History of Present Illness Ms Melania Avilez is a 70 y/o female w PMHx hypothyroidism, HTN, Kojo's thyroiditis, CVA, CKD III, bone necrosis, leukemia, s/p bone transplant, radiation, who was seen in GI clinic yesterday, obtaining a consent for planned video capsule endoscopy and was directed to present to [facility] for report of melena and OP Hb of 6. She is known to our group as she was hospitalized in January for melena and anemia, undergoing EGD 01/27/21 and colonoscopy 02/06/21 w/o cause of blood loss though there was a medium sized hiatal hernia, gastritis and suspicion for Segal's esophagitis on EGD. On colonoscopy there was diverti culosis and non bleeding internal hemorrhoids. On arrival here yesterday, Hb 6.7, then received a unit of RBCs and -> 7.8 this morning. She is currently receiving a second unit of RBCs. She is pleasant, hemodynamically stable w/o tachycardia or hypotension, though she is mildly confused. She denies any abdominal pain, nausea or vomiting. She reports some weakness. Nursing verifies she has not passed a BM since arrival. The pt believes she passed a black BM most recently on Tuesday (4 days ago), though she is not a reliable historian. She talked at length about her son who is a wall steamer and what a wonderful person he is and that the son's is also a wonderful person. GI bleeding scan is being completed this morning. Allergies Allergy/AdvReac Type Severity Reaction Status Date / Time latex Allergy Unknown RASH Verified 02/04/21 22:33 No Known Drug Allergies Allergy Unknown . Verified 02/04/21 22:33 Home Medications Medication Instructions Recorded Confirmed Type atorvastatin 40 mg tablet 40 mg PO QAM 10/06/18 03/04/21 History calcium carbonate-vitamin D3 500 1 tab PO QAM 10/06/18 03/04/21 History mg (1,250 mg)-600 unit tablet (Os-Tobias 500 + D3) levothyroxine 50 mcg tablet 50 mcg PO QAM 10/06/18 03/04/21 History omega 4-hex-dna-fish oil 1,000 mg 1 cap PO QAM 10/06/18 03/04/21 History (120 mg-180 mg) capsule (Fish Oil) acetaminophen 325 mg tablet 325 mg PO QID PRN 01/24/21 03/04/21 History (Tylenol) albuterol sulfate 90 mcg/actuation 2 inh INHALATION Q4 PRN 01/24/21 03/04/21 History aerosol inhaler aspirin 81 mg chewable tablet 81 mg PO DAILY 01/24/21 03/04/21 History docusate sodium 100 mg tablet 100 mg PO BID 01/24/21 03/04/21 History loratadine 10 mg tablet (Claritin) 10 mg PO DAILY 01/24/21 03/04/21 History multivitamin 1 tab PO DAILY 01/24/21 03/04/21 History simethicone 80 mg tablet 80 mg PO Q6 PRN 01/24/21 03/04/21 History guaifenesin 600 mg tablet, 600 mg PO Q12 #14 tab 01/29/21 03/04/21 Rx extended release 12 hr (Mucinex) lisinopril 10 mg tablet 5 mg PO QAM #0 tab 02/13/21 03/04/21 Rx pantoprazole 40 mg tablet,delayed 40 mg PO BID #60 tab 02/13/21 03/04/21 Rx release ferrous sulfate 325 mg (65 mg 325 mg PO BID 03/04/21 03/04/21 History iron) tablet Lactobacillus acidoph-L.bulgaricus 1 tab PO BID #30 tab 03/06/21 Rx 1 million cell chewable tablet (Lactinex) amoxicillin 875 mg-potassium 1 tab PO BIDM #10 tab 03/06/21 Rx clavulanate 125 mg tablet (Augmentin) Patient History Medical History Abnormal liver function tests Adnexal mass CT [facility] 05/01/20 - 7.2 x 4.8 cm cystic L adnexal mass Altered mental status Anemia Cholelithiasis CT [facility] 05/01/20 Dementia GI bleed History of acute lymphoid leukemia History of adenomatous polyp of colon Meningioma " interhemispheric frontal mass 4 x 9 mm per MRI 01/25/14" Surgical History 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 History of sinus surgery Status post bilateral hip replacements Family History Other Family history unobtainable due to patient's condition Social History Smoking Status: Never smoker Second Hand Exposure: No; Hx Alcohol Use: No Hx Substance Use: No Preferred Language: Hong Konger Communication Ability: Effective Final Dressing Cutter Required: No Beliefs That Will Affect Care: None marital status: Current Living Situation: Spouse Current Living Situation Comment: lives with son and current occupational status: retired Feels Safe at Home: Yes Assistive Devices: Cane, Denture - Upper, Denture - Lower and Walker Review of Systems Review of Systems: ROS: Gen: + weakness; Denies fevers, weight loss Eyes: No eye redness, or pain, no recent vision changes Resp: Denies any SOB, + reports a mild cough Cardio: No palpitations/irregular beats, no chest pain GI: As per HPI, otherwise (-) : Denies pain on urination Skin: No jaundice, itching or new rashes Physical Exam Constitutional: WD/WN, vitals as above Eyes: PERRL, conjunctivae normal, anicteric sclerae ENMT: external ear and nose normal, oropharynx normal Neck: trachea midline, no thyromegaly Respiratory: normal respiratory effort, lungs clear to auscultation Cardiovascular: RRR, no murmur, no edema Gastrointestinal (Abdomen): normal bowel sounds, soft, nontender, no hepatosplenomegaly Musculoskeletal: no cyanosis or clubbing, extremities motor strength 5/5 Skin: no rashes, warm and dry Neurologic: PERRL, EOMI, accommodation nl, no face palsy, no dysarthria Psychiatric: Orientation: alert, oriented to person and oriented to place Lymphatic: no cervical or axillary lymphadenopathy Results & Data ([facility]) Vital Signs (Past 12 Hours) Vital Signs Temp Pulse Pulse Resp BP BP Pulse Ox 03/05/21 09:25 37.0 C 75 18 114/79 93 03/05/21 08:55 36.9 C 69 18 127/77 93 03/05/21 08:40 36.8 C 63 20 119/75 91 03/05/21 08:17 36.6 C 70 20 119/72 92 03/05/21 07:29 36.7 C 74 18 113/68 96 03/05/21 03:23 36.6 C 79 16 102/61 91 03/04/21 22:59 36.4 C L 72 16 123/72 96 Laboratory Results WBC 5, Hb 7.8, Hct 24, Plts 269, Na 142, K 4.0, Cl 109CL2 32, BUN 22, Cr 1.2 Diagnostic Findings CXR 03/05/21: Mild interstitial coarsening of the right lung base suggestive of atelectasis versus pneumonitis. (1) Anemia Anemia type: unspecified type Qualified Code(s): D64.9 - Anemia, unspecified
[2021-03-05] MEDS: PANTOprazole 40 MG in SYRINGE 0 ML IV SCH ×2 (11:46→21:24)
[2021-03-05] MEDS: lisinopril 5 MG TAB PO SCH (11:46)
--- NOTE | 2021-03-05 12:06 | Hospitalist Progress Note ---
Date of Service March 05, 2021 Assessment & Plan (1) Acute GI bleeding: Recurrent GI bleed Noted to have melena on Tuesday last with ongoing symptoms of anemia Hemoglobin of 6.7 in the ER, noted to be 6.8 on outpatient records-was sent in from gastroenterology for transfusion and nuclear medicine GI scan Has been getting second unit of blood transfusion during examination Appreciate GI input and recommendation for outpatient capsule endoscopy Has had EGD with gastritis and negative colonoscopy recently We will repeat CBC and BMP tomorrow morning and likely home provided the nuclear scan is negative (2) Anemia: -History of such, has been working with GI and was scheduled to have an outpatient capsule endoscopy however had not been completed yet. Due to her worsening anemia secondary to a slow GI bleed will order a nuclear medicine GI scan. -As above (3) Dysuria: -Patient notes increased burning with urination, increased frequency, UA suspicious for UTI with positive esterase, WBC greater than 30 and urine bacteria 1+, follow culture -Start IV ceftriaxone -Urine is growing gram-negative bacilli await sensitivity (4) History of CVA (cerebrovascular accident): -Occurred during last admission, neurology recommended DC of Plavix but continuing baby aspirin (5) Meningioma: - Hx of such, chronic, stable DVT ppx: - teds, scds CODE: Full code Discussed with the patient the possible cause of ongoing GI bleed and importance of capsular endoscopy as an outpatient and also difficulty of finding the cause of bleeding and treatment. She understood and did not have any further question Likely discharge tomorrow Admission and Anticipated Discharge Date Admission Date: March 04, 2021 Subjective 03/05/2021 The patient was seen and examined in telemetry unit She complains of generalized weakness but denies any other symptoms at rest No more bowel movement since admission but has had black stool on Tuesday Denies any other symptoms Review of Systems Review of Systems: All systems reviewed and are unremarkable except as noted below Neurologic: + generalized weakness Physical Exam Physical Exam: Lying in bed comfortably Constitutional: + ill appearing and + thin Eyes: PERRL, conjunctivae normal, anicteric sclerae ENMT: external ear and nose normal, oropharynx normal Neck: trachea midline, no thyromegaly Respiratory: no respiratory distress Auscultation: lungs clear to auscultation bilaterally Cardiovascular: Rate/Rhythm: regular rate and regular rhythm Heart Sounds: no murmur Extremities: no edema Gastrointestinal (Abdomen): Inspection/Auscultation: abdomen not distended Percussion/Palpation: abdomen soft; abdomen nontender Musculoskeletal: No acute arthritis involving any joint Neurologic: Alert, awake and oriented x3. Generally weak but no focal sensory and motor deficit appreciated Psychiatric: A+Ox3, euthymic affect Lymphatic: no cervical or axillary lymphadenopathy Results & Data Results & Data ([facility]) Vital Signs (Past 12 Hours) Vital Signs Temp Pulse Pulse Resp BP BP Pulse Ox 03/05/21 11:47 36.8 C 72 18 136/83 95 03/05/21 11:24 37.1 C 76 77 23 128/75 128/75 96 03/05/21 10:25 36.9 C 88 18 113/76 95 03/05/21 09:25 37.0 C 75 18 114/79 93 03/05/21 08:55 36.9 C 69 18 127/77 93 03/05/21 08:40 36.8 C 63 20 119/75 91 03/05/21 08:17 36.6 C 70 20 119/72 92 03/05/21 08:00 69 03/05/21 07:29 36.7 C 74 18 113/68 96 03/05/21 03:23 36.6 C 79 16 102/61 91 Laboratory Results Short CBC 03/04/21 03/04/21 03/05/21 Range/Units 14:14 19:56 04:15 WBC 6.27 5.63 (4.8-10.8) K/uL Hgb 6.7 L* 8.3 L 7.8 L (12.0-16.0) g/dL Hct 22.6 L 26.8 L 24.6 L (37-47) % Plt Count 344 269 (130-400) K/uL BMP 03/04/21 03/05/21 14:14 04:15 Sodium 139 142 Potassium 4.2 4.0 Chloride 106 109 H Carbon Dioxide 31 32 BUN 27 H 22 H Creatinine 1.20 1.21 H Glucose 83 86 Calcium 8.8 8.5 Cardiac Enzymes 03/04/21 03/04/21 03/05/21 Range/Units 14:14 19:56 04:15 Troponin I 0.070 H* 0.068 H* 0.064 H* (0-0.045) ng/ml Liver Function 03/04/21 03/05/21 Range/Units 14:14 04:15 Total Bilirubin 0.4 0.5 (0.2-1) mg/dl AST 23 21 (15-37) U/L ALT 21 20 (12-78) U/L Alkaline Phosphatase 79 74 (45-117) U/L Albumin 3.2 L 2.8 L (3.4-5.0) gm/dl Urine 03/04/21 Range/Units Unknown Urine Color Yellow Urine Appearance Clear (Clear) Urine pH 7.5 (4.5-7.5) Ur Specific [place] 1.005 (1.000-1.030) Urine Protein Negative (Negative) Urine Glucose (UA) Negative (Negative) Medications Administered Current Inpatient Medications Acetaminophen (Acetaminophen 325 Mg Tab) 325 mg PO QID PRN PRN Reason: Pain Stop: 04/03/21 18:30 Albuterol (Albuterol Hfa 8 Gm Inhaler) 2 puffs INH Q4R PRN PRN Reason: Shortness Of Breath Or Wheezing Stop: 04/03/21 18:30 Atorvastatin Calcium (Atorvastatin 40 Mg Tab) 40 mg PO QAM [facility] Stop: 04/04/21 08:59 Last Admin: 03/05/21 08:37 Dose: Not Given Documented by: Calcium Carbonate (Calcium Carbonate 1250mg Tab) 1,250 mg PO QAM [facility] Stop: 04/04/21 08:59 Last Admin: 03/05/21 08:37 Dose: Not Given Documented by: Docusate Sodium (Docusate Sodium 100 Mg Cap) 100 mg PO BID [facility] Stop: 04/03/21 20:59 Last Admin: 03/05/21 08:36 Dose: Not Given Documented by: Ferrous Sulfate (Ferrous Sulfate 325 Mg Tab) 325 mg PO BID [facility] Stop: 04/03/21 20:59 Last Admin: 03/05/21 08:37 Dose: Not Given Documented by: Fish Oil ([place]-3 (Purified Fish Oil) 1 Gm Cap) 1 gm PO QAM [facility] Stop: 04/04/21 08:59 Last Admin: 03/05/21 08:37 Dose: Not Given Documented by: Guaifenesin (Guaifenesin 600 Mg Tabcr) 600 mg PO Q12 [facility] Stop: 04/03/21 20:59 Last Admin: 03/05/21 08:37 Dose: Not Given Documented by: Pantoprazole Sodium 40 mg/ (Syringe) 10 mls @ 5 mls/min IV BID [facility] Stop: 04/03/21 20:59 Last Admin: 03/05/21 11:46 Dose: 5 mls/min Documented by: Ciprofloxacin (Cipro / D5w) 400 mg in 200 mls @ 100 mls/hr IV Q12H [facility]; Protocol Stop: 03/09/21 18:30 Last Infusion: 03/05/21 08:28 Dose: Infused Documented by: Sodium Chloride (Nss) 250 mls @ 15 mls/hr IV .[id number] PRN PRN Reason: For Transfusion Stop: 03/05/21 16:10 Levothyroxine Sodium (Levothyroxine Sodium 50 Mcg Tablet) 50 mcg PO DAILYBB [facility] Stop: 04/04/21 06:29 Last Admin: 03/05/21 06:36 Dose: Not Given Documented by: Lisinopril (Lisinopril 5 Mg Tab) 5 mg PO QAM [facility] Stop: 04/04/21 08:59 Last Admin: 03/05/21 11:46 Dose: Not Given Documented by: Loratadine (Loratadine 10 Mg Tab) 10 mg PO DAILY [facility] Stop: 04/04/21 08:59 Last Admin: 03/05/21 08:37 Dose: Not Given Documented by: Multivitamins (Multivitamin Tab) 1 tab PO DAILY [facility] Stop: 04/04/21 08:59 Last Admin: 03/05/21 08:37 Dose: Not Given Documented by: Ondansetron HCl (Ondansetron Inj 2 Mg/Ml 2 Ml Vial) 4 mg IV Q4H PRN PRN Reason: Nausea And Vomiting Stop: 04/03/21 18:30 Simethicone (Simethicone 80 Mg Chew) 80 mg PO Q6 PRN PRN Reason: bloating Stop: 04/03/21 18:49 (1) Anemia Anemia type: unspecified type Qualified Code(s): D64.9 - Anemia, unspecified
--- NOTE | 2021-03-05 14:38 | Nuclear Medicine Report ---
NM GI bleeding HISTORY: Gi Bleed TECHNIQUE: Dynamic abdominal imaging was performed for total of 60 minutes following the intravenous administration of 26.2 mCi of technetium 99m autologous rbc. COMPARISON STUDY: KUB 02/05/2021. GI bleeding scan 02/09/2021. FINDINGS: No abnormal radiotracer uptake in the expected location of the bowel to suggest an active G I bleed. IMPRESSION: No evidence for active GI bleed. ACT 112: Negative or not required by law. Electronically signed by: Adolfo Coates M.D. 03/05/2021 2:37 PM
[2021-03-05] MEDS: AMOXICILLIN/CLAVULANATE 875 MG TAB PO SCH (16:58)
--- NOTE | 2021-03-06 06:12 | Electrocardiogram Report ---
Test Reason : Blood Pressure : / mmHG Vent. Rate : 075 BPM Atrial Rate : 075 BPM P-R Int : 136 ms QRS Dur : 084 ms QT Int : 438 ms P-R-T Axes : 053 036 039 degrees QTc Int : 489 ms Normal sinus rhythm Prolonged QT When compared with ECG of 04-MAR-2021 14:06, No significant change was found Confirmed by Calderon Shi ([id number]) on 03/06/2021 6:12:15 AM Referred By: REFERRED SELF Confirmed By:Calderon Shi
[2021-03-06 06:24] LABS: Hematocrit (blood only) 31.7 % (37-47); Mean Corpuscular Hemoglobin 27.6 pg (25-34); Mean Corpuscular Hgb Conc 31.5 g/dL (32-36); Mean Corpuscular Volume 87.6 fL (80-100); Mean Platelet Volume 8.5 fL (7.4-10.4); Platelet Count 301 K/uL (130-400); RDW Standard Deviation 52.1 fL (36.4-46.3); Red Blood Count 3.62 M/uL (4.2-5.4); White Blood Count 4.89 K/uL (4.8-10.8)
[2021-03-06] MEDS: LEVOTHYROXINE SODIUM 50 MCG TABLET PO SCH (06:31)
[2021-03-06 07:13] LABS: Albumin Level 2.9 gm/dl (3.4-5.0); BUN Creatinine Ratio 17.3 (10-20); Calcium 8.7 mg/dl (8.5-10.1); Creatinine Clr Calc Pharmacy 36.3 ml/min; Est GFR (African American) 49.3 ml/min; Est GFR (Non-African American) 42.5 ml/min; Potassium 3.6 mmol/L (3.5-5.1)
[2021-03-06 07:16] LABS: Albumin Globulin Ratio 0.9 (0.9-2); Bilirubin,Total 0.6 mg/dl (0.2-1); Globulin 3.2 gm/dl (2.5-4.0); Total Protein 6.1 gm/dl (6.4-8.2)
[2021-03-06] MEDS: ATORVASTATIN 40 MG TAB PO SCH (09:22)
[2021-03-06] MEDS: AMOXICILLIN/CLAVULANATE 875 MG TAB PO SCH (09:22)
[2021-03-06] MEDS: CALCIUM CARBONATE 1250MG TAB PO SCH (09:22)
[2021-03-06] MEDS: DOCUSATE SODIUM 100 MG CAP PO SCH (09:22)
[2021-03-06] MEDS: FERROUS SULFATE 325 MG TAB PO SCH (09:23)
[2021-03-06] MEDS: OMEGA-3 (PURIFIED FISH OIL) 1 GM CAP PO SCH (09:23)
[2021-03-06] MEDS: lisinopril 5 MG TAB PO SCH (09:24)
[2021-03-06] MEDS: MULTIVITAMIN TAB PO SCH (09:24)
[2021-03-06] MEDS: PANTOprazole 40 MG in SYRINGE 0 ML IV SCH (09:24)
[2021-03-06] MEDS: guaiFENesin 600 MG TABCR PO SCH (09:24)
[2021-03-06] MEDS: LORATADINE 10 MG TAB PO SCH (09:24)
--- NOTE | 2021-03-06 11:52 | Gastroenterology Progress Note ---
Date of Service March 06, 2021 Assessment & Plan (1) GI bleed: Obscure GI Bleeding w/o any current gross bleeding. Recent EGD, colonosocpy w/o source of bleeding. Avoid other NSAIDs/anticoagulants, though may restart 81mg ASA for hx of recent CVA if benefits thought to out weight risks form a Neuro standpoint. Plan for VCE next week in the OP setting. OK for DC on BID PPI. Present on Admission?: Yes Admission and Anticipated Discharge Date Admission Date: March 04, 2021 Supervising Physician Co-Signing Physician Notes I performed a history and physical examination of the patient today, including specifically on physical exam - soft abdomen. I have discussed the patient's management with the advanced practitioner. Please refer to the nurse practitioner's note for the documented findings and plan of care. No further melena. H/H stable. VCE as OP. Bleeding scan negative. Recall GI as needed Subjective 03/06/2021 Admitted on 03/04/19 for melena, anemia. EGD, colonoscopy w/o source of GI bleed in January. Received transfusions. Feeling well. No gross GI bleeding during this admission. Review of Systems Review of Systems: ROS: Gen: + weakness; Denies fevers, weight loss Eyes: No eye redness, or pain, no recent vision changes Resp: Denies any SOB, + reports a mild cough Cardio: No palpitations/irregular beats, no chest pain GI: As per HPI, otherwise (-) : Denies pain on urination Skin: No jaundice, itching or new rashes Physical Exam Constitutional: WD/WN, vitals as above Eyes: PERRL, conjunctivae normal, anicteric sclerae ENMT: external ear and nose normal, oropharynx normal Neck: trachea midline, no thyromegaly Respiratory: normal respiratory effort, lungs clear to auscultation Cardiovascular: RRR, no murmur, no edema Gastrointestinal (Abdomen): normal bowel sounds, soft, nontender, no hepatosplenomegaly Musculoskeletal: no cyanosis or clubbing, extremities motor strength 5/5 Skin: no rashes, warm and dry Neurologic: PERRL, EOMI, accommodation nl, no face palsy, no dysarthria Psychiatric: Orientation: alert, oriented to person and oriented to place Lymphatic: no cervical or axillary lymphadenopathy Results & Data ([facility]) Vital Signs (Past 12 Hours) Vital Signs Temp Pulse Resp BP Pulse Ox 03/06/21 11:12 36.6 C 77 19 137/84 96 03/06/21 07:10 36.8 C 76 16 112/55 L 94 03/06/21 04:00 36.5 C 67 16 115/66 91 Laboratory Results WBC 5, Hb 10, Hct 31, Plts 301, Na 142, K 3.6, BUN 4, Cr 22, glucose 83. Diagnostic Findings GI Bleeding scan on 03/05/ (-) (1) GI bleed GI bleed type/associated pathology: unspecified gastrointestinal hemorrhage type Qualified Code(s): K92.2 - Gastrointestinal hemorrhage, unspecified
--- NOTE | 2021-03-06 12:34 | Hospitalist Progress Note ---
Date of Service March 06, 2021 Assessment & Plan (1) Acute GI bleeding: Recurrent GI bleed Noted to have melena on Tuesday last with ongoing symptoms of anemia Hemoglobin of 6.7 in the ER, noted to be 6.8 on outpatient records-was sent in from gastroenterology for transfusion and nuclear medicine GI scan Has been getting second unit of blood transfusion during examination Appreciate GI input and recommendation for outpatient capsule endoscopy Has had EGD with gastritis and negative colonoscopy recently Hemoglobin remains stable at more than 10 No more bleeding per rectum and/or melena She has been moving around in the hallway without any symptoms She will be discharged home this afternoon She will have outpatient capsule endoscopy which will be arranged by gastroenterology service (2) Anemia: -History of such, has been working with GI and was scheduled to have an outpatient capsule endoscopy however had not been completed yet. Due to her worsening anemia secondary to a slow GI bleed will order a nuclear medicine GI scan. -As above (3) Dysuria: -Patient notes increased burning with urination, increased frequency, UA suspicious for UTI with positive esterase, WBC greater than 30 and urine bacteria 1+, follow culture -Start IV ceftriaxone -Urine is growing gram-negative bacilli await sensitivity -Has Proteus vulgaris UTI and will continue with Augmentin to cover 7 days of treatment in total (4) History of CVA (cerebrovascular accident): -Occurred during last admission, neurology recommended DC of Plavix but continuing baby aspirin (5) Meningioma: - Hx of such, chronic, stable DVT ppx: - teds, scds CODE: Full code Discussed with the patient the possible cause of ongoing GI bleed and importance of capsular endoscopy as an outpatient and also difficulty of finding the cause of bleeding and treatment. She understood and did not have any further question Discussed with the and the patient She will be discharged home this afternoon Admission and Anticipated Discharge Date Admission Date: March 04, 2021 Subjective 03/05/2021 Admitted on 03/04/19 for melena, anemia. EGD, colonoscopy w/o source of GI bleed in January. Received transfusions. Feeling well. No gross GI bleeding during this admission. 03/06/2021 The patient was seen and examined in telemetry unit She has been generally weak and denies any other symptoms No more bloody and/or black stool Has been ambulating in the hallway without any difficulties Review of Systems Review of Systems: All systems reviewed and are unremarkable except as noted below Neurologic: + generalized weakness Physical Exam Physical Exam: Sitting on a chair without any acute distress Constitutional: + ill appearing and + thin Eyes: PERRL, conjunctivae normal, anicteric sclerae ENMT: external ear and nose normal, oropharynx normal Neck: trachea midline, no thyromegaly Respiratory: no respiratory distress Auscultation: lungs clear to auscultation bilaterally Cardiovascular: Rate/Rhythm: regular rate and regular rhythm Heart Sounds: no murmur Extremities: no edema Gastrointestinal (Abdomen): Inspection/Auscultation: abdomen not distended Percussion/Palpation: abdomen soft; abdomen nontender Musculoskeletal: No acute arthritis in any joint Neurologic: Alert, awake and oriented x3. No focal sensory and motor deficit appreciated. Remains generally weak Psychiatric: A+Ox3, euthymic affect Lymphatic: no cervical or axillary lymphadenopathy Results & Data Results & Data ([facility]) Vital Signs (Past 12 Hours) Vital Signs Temp Pulse Pulse Resp BP Pulse Ox 03/06/21 11:12 36.6 C 77 19 137/84 96 03/06/21 08:00 73 03/06/21 07:10 36.8 C 76 16 112/55 L 94 03/06/21 04:00 36.5 C 67 16 115/66 91 Laboratory Results Short CBC 03/06/21 Range/Units 05:45 WBC 4.89 (4.8-10.8) K/uL Hgb 10.0 L (12.0-16.0) g/dL Hct 31.7 L (37-47) % Plt Count 301 (130-400) K/uL BMP 03/06/21 05:45 Sodium 142 Potassium 3.6 Chloride 108 H Carbon Dioxide 30 BUN 22 H Creatinine 1.26 H Glucose 83 Calcium 8.7 Liver Function 03/06/21 Range/Units 05:45 Total Bilirubin 0.6 (0.2-1) mg/dl AST 24 (15-37) U/L ALT 23 (12-78) U/L Alkaline Phosphatase 85 (45-117) U/L Albumin 2.9 L (3.4-5.0) gm/dl Medications Administered Current Inpatient Medications Acetaminophen (Acetaminophen 325 Mg Tab) 325 mg PO QID PRN PRN Reason: Pain Stop: 04/03/21 18:30 Albuterol (Albuterol Hfa 8 Gm Inhaler) 2 puffs INH Q4R PRN PRN Reason: Shortness Of Breath Or Wheezing Stop: 04/03/21 18:30 Amoxicillin/Clavulanate Potassium (Amoxicillin/Clavulanate 875 Mg Tab) 1 tab PO BIDM [facility]; Protocol Stop: 03/10/21 16:59 Last Admin: 03/06/21 09:22 Dose: 1 tab Documented by: Atorvastatin Calcium (Atorvastatin 40 Mg Tab) [facility] Stop: 04/04/21 08:59 Last Admin: 03/06/21 09:22 Dose: 40 mg Documented by: Calcium Carbonate (Calcium Carbonate 1250mg Tab) 1,250 mg PO QAM [facility] Stop: 04/04/21 08:59 Last Admin: 03/06/21 09:22 Dose: 1,250 mg Documented by: Docusate Sodium (Docusate Sodium 100 Mg Cap) 100 mg PO BID [facility] Stop: 04/03/21 20:59 Last Admin: 03/06/21 09:22 Dose: 100 mg Documented by: Ferrous Sulfate (Ferrous Sulfate 325 Mg Tab) 325 mg PO BID [facility] Stop: 04/03/21 20:59 Last Admin: 03/06/21 09:23 Dose: 325 mg Documented by: Fish Oil ([place]-3 (Purified Fish Oil) 1 Gm Cap) 1 gm PO QAM [facility] Stop: 04/04/21 08:59 Last Admin: 03/06/21 09:23 Dose: 1 gm Documented by: Guaifenesin (Guaifenesin 600 Mg Tabcr) 600 mg PO Q12 [facility] Stop: 04/03/21 20:59 Last Admin: 03/06/21 09:24 Dose: 600 mg Documented by: Pantoprazole Sodium 40 mg/ (Syringe) 10 mls @ 5 mls/min IV BID [facility] Stop: 04/03/21 20:59 Last Admin: 03/06/21 09:24 Dose: 5 mls/min Documented by: Levothyroxine Sodium (Levothyroxine Sodium 50 Mcg Tablet) 50 mcg PO DAILYBB [facility] Stop: 04/04/21 06:29 Last Admin: 03/06/21 06:31 Dose: 50 mcg Documented by: Lisinopril (Lisinopril 5 Mg Tab) [facility] Stop: 04/04/21 08:59 Last Admin: 03/06/21 09:24 Dose: 5 mg Documented by: Loratadine (Loratadine 10 Mg Tab) 10 mg PO DAILY [facility] Stop: 04/04/21 08:59 Last Admin: 03/06/21 09:24 Dose: 10 mg Documented by: Multivitamins (Multivitamin Tab) 1 tab PO DAILY [facility] Stop: 04/04/21 08:59 Last Admin: 03/06/21 09:24 Dose: 1 tab Documented by: Ondansetron HCl (Ondansetron Inj 2 Mg/Ml 2 Ml Vial) 4 mg IV Q4H PRN PRN Reason: Nausea And Vomiting Stop: 04/03/21 18:30 Simethicone (Simethicone 80 Mg Chew) 80 mg PO Q6 PRN PRN Reason: bloating Stop: 04/03/21 18:49 (1) Anemia Anemia type: unspecified type Qualified Code(s): D64.9 - Anemia, unspecified
--- NOTE | 2021-03-07 08:42 | Discharge Summary ---
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 Recent admission from 01/24/21 -02/01/21 due to anemia with GI bleed with hgb of 5.8 on admission requiring transfusion, as well as new CVA with left caudate infarction and pericardial effusions. Was restarted on aspirin and plavix. Recent admission from 02/05/21 - 02/13/21 with recurrent anemia with hgb of 6.3. She was taken off plavix but maintained on aspirin per neurology. and GI had the patient scheduled for outpatient capsule endoscopy. Pt had barium swallow which revealed that she is at risk for silent aspiration. Patient was placed on nectar thick liquid. The patient's and her [id number] are present at bedside and link pports the history. Pt was seen by her surgeon partner earlier today for follow up. She complaints of increased fatigue and dyspnea on exertion, she is noticing more blood in her stools. He is having 1 bowel movement every other day or once daily. Denies any abdominal pain. Patient has been doing well with eating and drinking with easy to chew foods, and nectar thick liquids due to her risk for being a silent aspirator. She was found to have hemoglobin of 6.8 on outpatient review, therefore was sent to the ER. It has been requested that she gets a nuclear bleeding scan. Patient has been ordered blood transfusion of 1 unit with another one on hold, which is being started at bedside during my visit. Also noticed increased WBC on UA, patient admits to burning with urination over the past 3 days and increased incontinence. She reports wearing a brief/pad daily. Patient has elevated troponin however is likely secondary to demand ischemia as she does not endorse any cardiac symptoms. Patient did take her morning medications today including baby aspirin. Admission Exam Per Admitting Provider Physical Exam: General: awake, alert, no apparent distress, + fatigue Head: Normocephalic, atraumatic ENT: PERRL, EOMI, no pharyngeal exudate, mucous membranes moist Chest: on room air, coarse breath sounds throughout, no wheeze or rhonchi Cardiac: Regular rate and rhythm, no murmur, no JVD, normal peripheral pulses, good capillary refill Abdominal: NABS x 4 quadrants, soft, nondistended, nontender to palpation, no rebound or guarding Extremities: Normal inspection, no peripheral edema or erythema, calfs nontender to palpation Psych: Normal mood and affect Neuro: AAO x 3, strength intact bilaterally and rated 5/5, no motor deficits, speech is clear, no peripheral sensory deficits Principal Diagnosis Acute blood loss anemia, GI bleed-recent negative EGD and colonoscopy, negative bleeding scan, UTI, history of CVA Discharge Exam Constitutional + ill appearing and + thin Eyes PERRL, conjunctivae normal, anicteric sclerae ENMT external ear and nose normal, oropharynx normal Neck trachea midline, no thyromegaly Respiratory no respiratory distress Auscultation: lungs clear to auscultation bilaterally Cardiovascular Rate/Rhythm: regular rate and regular rhythm Heart Sounds: no murmur Extremities: no edema Gastrointestinal (Abdomen) Inspection/Auscultation: abdomen not distended Percussion/Palpation: abdomen soft; abdomen nontender Psychiatric A+Ox3, euthymic affect Lymphatic no cervical or axillary lymphadenopathy Discharge Data Allergies Allergy/AdvReac Type Severity Reaction Status Date / Time latex Allergy Unknown RASH Verified 02/04/21 22:33 No Known Drug Allergies Allergy Unknown . Verified 02/04/21 22:33 Consultations 03/04/21 15:38 ED Decision to Admit Stat 03/04/21 18:31 Consult Gastroenterology Routine Hospital Course (1) Acute GI bleeding: Recurrent GI bleed Noted to have melena on Tuesday last with ongoing symptoms of anemia Hemoglobin of 6.7 in the ER, noted to be 6.8 on outpatient records-was sent in from gastroenterology for transfusion and nuclear medicine GI scan Has been getting second unit of blood transfusion during examination Appreciate GI input and recommendation for outpatient capsule endoscopy Has had EGD with gastritis and negative colonoscopy recently Hemoglobin remains stable at more than 10 No more bleeding per rectum and/or melena She has been moving around in the hallway without any symptoms She will be discharged home this afternoon She will have outpatient capsule endoscopy which will be arranged by gastroenterology service (2) Anemia: -History of such, has been working with GI and was scheduled to have an outpatient capsule endoscopy however had not been completed yet. Due to her worsening anemia secondary to a slow GI bleed will order a nuclear medicine GI scan. -As above (3) Dysuria: -Patient notes increased burning with urination, increased frequency, UA suspicious for UTI with positive esterase, WBC greater than 30 and urine bacteria 1+, follow culture -Start IV ceftriaxone -Urine is growing gram-negative bacilli await sensitivity -Has Proteus vulgaris UTI and will continue with Augmentin to cover 7 days of treatment in total (4) History of CVA (cerebrovascular accident): -Occurred during last admission, neurology recommended DC of Plavix but continuing baby aspirin (5) Meningioma: - Hx of such, chronic, stable DVT ppx: - teds, scds CODE: Full code Discussed with the patient the possible cause of ongoing GI bleed and importance of capsular endoscopy as an outpatient and also difficulty of finding the cause of bleeding and treatment. She understood and did not have any further question Discussed with the and the patient She will be discharged home this afternoon Total Time Total Time Spent Total Time Spent (In Minutes): 35 minutes Total Time Includes: Examination of the Patient, Discharge Planning, Medication Reconciliation and Communication With Other Providers Discharge Plan Discharge Items Patient Disposition: Home - Self-Care Reason For Visit: GIB, ANEMIA Discharge Diagnosis: Acute blood loss anemia, GI bleed-recent negative EGD and colonoscopy, negative bleeding scan, UTI, history of CVA Condition on Discharge: Fair Activity: Resume your previous activity Non-emergency contact: Primary Care Provider Call non-emergency contact if: you have any medication questions and your symptoms worsen Follow-up/Referrals: Verónica Jose CRNP [Nurse Practitioner] - 03/11/21 7:30 am ([facility] 03/11/21 @ 7:30am) Max Pendleton DO [Primary Care Provider] - 03/10/21 11:00 am (Your appointment with Dr. Stark on of this month at 11 AM at [facility]) Diet: Regular Addtl Attending Provider Instructions: Please take precautions to avoid fall Baby aspirin discontinued to prevent stroke with a history of stroke. Do not take any NSAIDs like ibuprofen, Motrin, Advil etc. [facility] gastroenterology department will make an appointment for outpatient capsule endoscopy Pending Studies at Discharge: No Stand-Alone Forms: My [facility], Smoking Cessation Medications and DC Order Prescriptions: New amoxicillin-pot clavulanate [Augmentin] 875-125 mg Tablet 1 tab PO BIDM Qty: 10 RF: 0 Lactinex 1 million cell tablet,chewable 1 tab PO BID Qty: 30 RF: 0 Continued atorvastatin 40 mg tablet 40 mg PO QAM RF: 0 levothyroxine 50 mcg tablet 50 mcg PO QAM RF: 0 omega 3-yhm-ina-fish oil [Fish Oil] 1,000 mg (120 mg-180 mg) Capsule 1 cap PO QAM RF: 0 calcium carbonate-vitamin D3 [Os-Tobias 500 + D3] 500mg (1,250mg) -600 unit Tablet 1 tab PO QAM RF: 0 pantoprazole 40 mg Tablet,Delayed Release (Dr/Ec) 40 mg PO BID Qty: 60 RF: 1 lisinopril 10 mg tablet 5 mg PO QAM Qty: 0 RF: 0 ferrous sulfate 325 mg (65 mg iron) Tablet 325 mg PO BID RF: 0 multivitamin Tablet 1 tab PO DAILY RF: 0 acetaminophen [Tylenol] 325 mg Tablet 325 mg PO QID PRN (Reason: Pain) RF: 0 aspirin 81 mg Tablet,Chewable 81 mg PO DAILY RF: 0 albuterol sulfate 90 mcg/actuation Hfa Aerosol Inhaler 2 inh INHALATION Q4 PRN (Reason: Shortness Of Breath Or Wheezing) RF: 0 docusate sodium 100 mg Tablet 100 mg PO BID RF: 0 loratadine [Claritin] 10 mg Tablet 10 mg PO DAILY RF: 0 simethicone 80 mg Tablet 80 mg PO Q6 PRN (Reason: bloating) RF: 0 guaifenesin [Mucinex] 600 mg Tablet Extended Release 12hr 600 mg PO Q12 Qty: 14 RF: 0 Discharge Orders: Discharge Order (Routine); Ordered 03/06/21 Ordered By: Schuyler Dempsey Admission Data Admit Date/Time: 03/04/21 15:47 Attending Provider: Schuyler Dempsey Admit Provider: Vee Singh Primary Care Provider: Max Pendleton Other Providers: Al Mccollum ; Luisana Holly ; Hilario Romero Other Interventions: Discharge Summary Assessment (RN) Last Done: 03/06/21 13:57
== END 2021-03-06 15:52 | disposition home or self-care (01) ==
LOC: ED 13:44 → 2E 13:44 → SUATTDRO 15:47 → 2E 18:00
DX: Z94.81 Bone marrow transplant status; Z86.73 Personal history of transient ischemic attack (TIA), and cerebral infarction without residual deficits; Z79.899 Other long term (current) drug therapy; R06.02 Shortness of breath; I73.9 Peripheral vascular disease, unspecified; E78.5 Hyperlipidemia, unspecified; F03.90 Unspecified dementia, unspecified severity, without behavioral disturbance, psychotic disturbance, mood disturbance, and anxiety; I12.9 Hypertensive chronic kidney disease with stage 1 through stage 4 chronic kidney disease, or unspecified chronic kidney disease; K92.2 Gastrointestinal hemorrhage, unspecified; N18.30 Chronic kidney disease, stage 3 unspecified; C95.91 Leukemia, unspecified, in remission; D62 Acute posthemorrhagic anemia; E03.9 Hypothyroidism, unspecified; Z91.040 Latex allergy status; Z79.82 Long term (current) use of aspirin; N39.0 Urinary tract infection, site not specified; Z79.890 Hormone replacement therapy

== ENCOUNTER 2021-04-08 09:49 | Inpatient (IN) ==
[2021-04-08] MEDS ORDERED: SODIUM CHLORIDE 0.9% 500 ML IV SCH (11:00)
--- NOTE | 2021-04-08 11:00 | Emergency Department Note ---
Impression & Plan Weakness, Anemia, Heme positive stool, Acute GI bleeding ED Provider Note NAME: SHAN GRAY AGE: 70 SEX: F : 1950 ARRIVES VIA: Walk-In INFORMANT: [Patient][son] ED PROVIDER(S): [Jim Ruelas MD] CHIEF COMPLAINT: Rectal bleeding HISTORY OF PRESENT ILLNESS: The patient is a 70-year-old female who was recently found to have an intestinal source of bleeding. She had a negative endoscopy and colonoscopy but, the video camera she swallowed revealed the bleeding source. She is scheduled to have surgery next month. Today, the patient was weak and exhausted and seemed more lethargic. She was noted to have some black stools and brought to the hospital for evaluation. The patient currently denies any shortness of breath or any abdominal pain. There has been no fever. The patient states that she was last in the hospital in February, she had to receive blood during that visit. The patient has had strokes in the past, the family was not sure if her weakness today was from a stroke or from GI bleeding. REVIEW OF SYSTEMS: See HPI for pertinent positives and negatives. A total of ten systems were reviewed and were otherwise negative. PMHx/PSHx: See Below SOCIAL HISTORY: See Below. PHYSICAL EXAM: GENERAL: Patient is in no acute distress. HEENT: No acute trauma, normocephalic atraumatic, mucous membranes moist, no nasal congestion, no scleral icterus. NECK: No stridor, no adenopathy, no meningismus, trachea is midline. LUNGS: There are few crackles/rhonchi heard at the lower lung bases more so on the right. No respiratory distress, no wheezing. HEART: Without murmurs gallops or rubs, regular rate and rhythm. ABDOMEN: Soft, nontender, bowel sounds positive, no hernias, no peritonitis. EXTREMITIES: No cyanosis or edema, full range of motion of all the joints without pain or difficulty, no signs for acute trauma. NEUROLOGIC: Oriented x 3, no acute motor or sensory deficits, no focal weakness. No facial droop, no extremity drift. SKIN: No rash, no jaundice, no diaphoresis. Rectal: Very dark stool, heme positive. DIFFERENTIAL DIAGNOSIS: Diverticulosis, AVM, coagulopathy, colitis, inflammatory bowel disease, malignancy, Siomara-Sauer tear, esophagitis, peptic ulcer disease, variceal bleed, gastritis, epistaxis, fissure, hemorrhoids, as well as other pathologies. EMERGENCY DEPARTMENT COURSE/PROCEDURES: ECG: Indication was weakness and GI bleeding. The ECG shows a normal sinus rhythm with a rate of 84. There is no ST elevation, no PVCs. The QTc is 477. Continuous Cardiac Monitoring: An order was placed for continuous cardiac monitoring. The monitor shows a rate of 87 with normal sinus rhythm. MEDICAL DECISION MAKING: There is no leukocytosis. The patient is anemic however, this is about baseline compared to recent testing. There was a normal platelet count. No coagulopathy. No significant electrolyte abnormality or kidney failure. Lactic acid level is not elevated making sepsis less likely. No worrisome liver enzyme elevation. ECG shows a sinus rhythm, no acute ischemia. Cardiac enzyme testing x1 is not consistent with acute cardiac injury. Urinalysis is not consistent with infection. Covid testing returned negative. Chest x-ray does not show CHF. Atelectasis versus a subtle pneumonia was suggested. Brain CT shows no acute bleed or mass-effect. Rectal exam was performed. The stool was very dark to black and heme positive. On exam, the patient appeared fatigued. She had no focal neurologic findings. The patient received IV saline 1 L. She has been resting comfortably. The patient presents with increasing fatigue and weakness. Her stool is heme positive. She is bleeding once again from the GI tract. I suspect her hemoglobin will drop further with proper hydration. She is not currently in need of a red blood cell transfusion. I spoke to the patient and her son. I spoke with case management. Given her findings and exam, a hospital stay is warranted. The on-call hospitalist was consulted. Past Med/Surg History Medical History Adnexal mass CT [facility] 05/01/20 - 7.2 x 4.8 cm cystic L adnexal mass s/p total hyster and BSO 05/2020 Anemia Aspiration into airway chronic Benign hypertension (09/07/11) Cerebrovascular disease (09/07/11) Cholelithiasis CT [facility] 05/01/20 CKD (chronic kidney disease) stage 3, GFR 30-59 ml/min Dementia Dysphagia GI bleed History of acute lymphoid leukemia History of adenomatous polyp of colon HLD (hyperlipidemia) Meningioma " interhemispheric frontal mass 4 x 9 mm per MRI 01/25/14" Surgical History (Updated 04/08/21 @ 14:16 by Hanane Gregorio PA-C) History of bilateral hip replacements 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 History of sinus surgery History of total hysterectomy with bilateral salpingo-oophorectomy (BSO) Status post bilateral hip replacements R 1995; L2001 R redo 2006 Family History (Updated 04/08/21 @ 14:16 by Hanane Gregorio PA-C) Mother Lung disease Sister Cirrhosis GI bleed Social History Smoking Status: Never smoker Second Hand Exposure: No; Hx Alcohol Use: No Hx Substance Use: No Preferred Language: Tristanian Communication Ability: Effective Pharmacy General Manager Required: No Beliefs That Will Affect Care: None marital status: Current Living Situation: Spouse Current Living Situation Comment: lives with son and current occupational status: retired Feels Safe at Home: Yes Safety Concerns: Feels Safe At This Time Assistive Devices: Cane and Walker Allergies Allergies Allergy/AdvReac Type Severity Reaction Status Date / Time latex Allergy Unknown RASH Verified 04/08/21 12:47 No Known Drug Allergies Allergy Unknown . Verified 04/08/21 12:47 Home Meds Home Medications Medication Instructions Recorded Confirmed atorvastatin 40 mg tablet 40 mg PO QAM 10/06/18 04/08/21 calcium carbonate-vitamin D3 500 1 tab PO QAM 10/06/18 04/08/21 mg (1,250 mg)-600 unit tablet (Os-Tobias 500 + D3) levothyroxine 50 mcg tablet 50 mcg PO QAM 10/06/18 04/08/21 omega 7-yqn-iwf-fish oil 1,000 mg 1 cap PO QAM 10/06/18 04/08/21 (120 mg-180 mg) capsule (Fish Oil) acetaminophen 325 mg tablet 325 mg PO Q6H PRN 01/24/21 04/08/21 (Tylenol) docusate sodium 100 mg tablet 100 mg PO BID 01/24/21 04/08/21 loratadine 10 mg tablet (Claritin) 10 mg PO QAM 01/24/21 04/08/21 multivitamin 1 tab PO QAM 01/24/21 04/08/21 simethicone 80 mg tablet 80 mg PO Q6 PRN 01/24/21 04/08/21 ferrous sulfate 325 mg (65 mg 325 mg PO BID 03/04/21 04/08/21 iron) tablet aspirin 81 mg tablet,delayed 81 mg PO DAILY 04/08/21 04/08/21 release Previous Rx's Medication Instructions Recorded guaifenesin 600 mg tablet, 600 mg PO Q12 #14 tab 01/29/21 extended release 12 hr (Mucinex) pantoprazole 40 mg tablet,delayed 40 mg PO BID #60 tab 02/13/21 release Lactobacillus acidoph-L.bulgaricus 1 tab PO BID #30 tab 03/06/21 1 million cell chewable tablet (Lactinex) Results & Data (ED) Vital Signs Vital Signs - 24 hr 04/08/21 09:58 04/08/21 11:24 04/08/21 11:35 Temperature 36.6 C Temperature Source Temporal Artery Scan Pulse Rate 87 82 80 Pulse Rate from SpO2 Sensor Respiratory Rate 16 24 23 Respiratory Effort / Characteristics Non-Labored Respiratory Depth Normal Blood Pressure 141/73 H Blood Pressure Mean 95 Pulse Oximetry 96 95 Oxygen Delivery Method Room Air Sepsis Recent Fever Within 48 Hours No Sepsis New/Unexplained Change in Mental Status No Sepsis Action Taken by Nursing No Action Required 04/08/21 11:40 04/08/21 11:50 04/08/21 12:00 Temperature Temperature Source Pulse Rate 78 76 75 Pulse Rate from SpO2 Sensor Respiratory Rate 22 21 20 Respiratory Effort / Characteristics Respiratory Depth Blood Pressure Blood Pressure Mean Pulse Oximetry Oxygen Delivery Method Sepsis Recent Fever Within 48 Hours Sepsis New/Unexplained Change in Mental Status Sepsis Action Taken by Nursing 04/08/21 12:10 04/08/21 12:20 04/08/21 12:30 Temperature Temperature Source Pulse Rate 75 77 78 Pulse Rate from SpO2 Sensor 74 79 78 Respiratory Rate 22 17 14 Respiratory Effort / Characteristics Respiratory Depth Blood Pressure Blood Pressure Mean Pulse Oximetry 95 97 97 Oxygen Delivery Method Sepsis Recent Fever Within 48 Hours Sepsis New/Unexplained Change in Mental Status Sepsis Action Taken by Nursing 04/08/21 12:40 Temperature Temperature Source Pulse Rate 78 Pulse Rate from SpO2 Sensor 78 Respiratory Rate 19 Respiratory Effort / Characteristics Respiratory Depth Blood Pressure Blood Pressure Mean Pulse Oximetry 98 Oxygen Delivery Method Sepsis Recent Fever Within 48 Hours Sepsis New/Unexplained Change in Mental Status Sepsis Action Taken by Group Home Medications Current Medication List: was personally reviewed by me Laboratory Data Attestation: I reviewed the patient's lab results. Result diagrams: 04/08/21 11:07 04/08/21 11:07 Lab Results 04/08/21 04/08/21 04/08/21 Range/Units 11:07 11:07 11:07 WBC 10.67 (4.8-10.8) K/uL RBC 3.61 L (4.2-5.4) M/uL Hgb 10.2 L (12.0-16.0) g/dL Hct 32.7 L (37-47) % MCV 90.6 (80-100) fL MCH 28.3 (25-34) pg MCHC 31.2 L (32-36) g/dL RDW Std Deviation 65.9 H (36.4-46.3) fL RDW Coeff of Ruddy 19.8 H (11.5-14.5) % Plt Count 259 (130-400) K/uL MPV 8.3 (7.4-10.4) fL Immature Gran % (Auto) 0.2 % Neut % (Auto) 77.4 % Lymph % (Auto) 14.5 % [place] % (Auto) 7.2 % Eos % (Auto) 0.5 % Baso % (Auto) 0.2 % Neut # (Auto) 8.26 H (1.4-6.5) K/uL Lymph # (Auto) 1.55 (1.2-3.4) K/uL [place] # (Auto) 0.77 H (0.11-0.59) K/uL Eos # (Auto) 0.05 (0-0.5) K/uL Baso # (Auto) 0.02 (0-0.2) K/uL Immature Gran # (Auto) 0.02 (0.00-0.02) K/uL PT 10.3 (9.0-12.0) Seconds INR 1.0 (0.9-1.1) APTT 23.4 (21.0-31.0) Seconds PTT Ratio 0.9 Sodium (136-145) mmol/L Potassium (3.5-5.1) mmol/L Chloride (98-107) mmol/L Carbon Dioxide (21-32) mmol/L Anion Gap (3-11) BUN (7-18) mg/dl Creatinine (0.6-1.2) mg/dl Est Cr Clr Drug Dosing ml/min Est GFR ( Amer) ml/min Est GFR (Non-Af Amer) ml/min BUN/Creatinine Ratio (10-20) Glucose (70-99) mg/dl Lactate (0.4-2.0) mmol/L Calcium (8.5-10.1) mg/dl Total Bilirubin (0.2-1) mg/dl AST (15-37) U/L ALT (12-78) U/L Alkaline Phosphatase (45-117) U/L Troponin I (0-0.045) ng/ml Total Protein (6.4-8.2) gm/dl Albumin (3.4-5.0) gm/dl Globulin (2.5-4.0) gm/dl Albumin/Globulin Ratio (0.9-2) Urine Color Urine Appearance (Clear) Urine pH (4.5-7.5) Ur Specific [place] (1.000-1.030) Urine Protein (Negative) Urine Glucose (UA) (Negative) Urine Ketones (Negative) Urine Blood (Negative) Urine Nitrite (Negative) Urine Bilirubin (Negative) Urine Urobilinogen (Negative) Ur Leukocyte Esterase (Negative) COVID-19 Eval Order SARS-CoV-2 (PCR) (Negative) Blood Type O Positive Antibody Screen NEGATIVE 04/08/21 04/08/21 04/08/21 Range/Units 11:07 11:23 11:23 WBC (4.8-10.8) K/uL RBC (4.2-5.4) M/uL Hgb (12.0-16.0) g/dL Hct (37-47) % MCV (80-100) fL MCH (25-34) pg MCHC (32-36) g/dL RDW Std Deviation (36.4-46.3) fL RDW Coeff of Ruddy (11.5-14.5) % Plt Count (130-400) K/uL MPV (7.4-10.4) fL Immature Gran % (Auto) % Neut % (Auto) % Lymph % (Auto) % [place] % (Auto) % Eos % (Auto) % Baso % (Auto) % Neut # (Auto) (1.4-6.5) K/uL Lymph # (Auto) (1.2-3.4) K/uL [place] # (Auto) (0.11-0.59) K/uL Eos # (Auto) (0-0.5) K/uL Baso # (Auto) (0-0.2) K/uL Immature Gran # (Auto) (0.00-0.02) K/uL PT (9.0-12.0) Seconds INR (0.9-1.1) APTT (21.0-31.0) Seconds PTT Ratio Sodium 141 (136-145) mmol/L Potassium 4.0 (3.5-5.1) mmol/L Chloride 108 H (98-107) mmol/L Carbon Dioxide 27 (21-32) mmol/L Anion Gap 6.0 (3-11) BUN 20 H (7-18) mg/dl Creatinine 1.03 (0.6-1.2) mg/dl Est Cr Clr Drug Dosing 42.6 ml/min Est GFR ( Amer) 62.9 ml/min Est GFR (Non-Af Amer) 54.3 ml/min BUN/Creatinine Ratio 19.5 (10-20) Glucose 116 H (70-99) mg/dl Lactate (0.4-2.0) mmol/L Calcium 8.6 (8.5-10.1) mg/dl Total Bilirubin 0.5 (0.2-1) mg/dl AST 25 (15-37) U/L ALT 24 (12-78) U/L Alkaline Phosphatase 80 (45-117) U/L Troponin I < 0.015 (0-0.045) ng/ml Total Protein 6.5 (6.4-8.2) gm/dl Albumin 3.0 L (3.4-5.0) gm/dl Globulin 3.5 (2.5-4.0) gm/dl Albumin/Globulin Ratio 0.9 (0.9-2) Urine Color Urine Appearance (Clear) Urine pH (4.5-7.5) Ur Specific [place] (1.000-1.030) Urine Protein (Negative) Urine Glucose (UA) (Negative) Urine Ketones (Negative) Urine Blood (Negative) Urine Nitrite (Negative) Urine Bilirubin (Negative) Urine Urobilinogen (Negative) Ur Leukocyte Esterase (Negative) COVID-19 Eval Order Covid19 at [facility] SARS-CoV-2 (PCR) NEGATIVE (Negative) Blood Type Antibody Screen 04/08/21 04/08/21 Range/Units 12:29 13:21 WBC (4.8-10.8) K/uL RBC (4.2-5.4) M/uL Hgb (12.0-16.0) g/dL Hct (37-47) % MCV (80-100) fL MCH (25-34) pg MCHC (32-36) g/dL RDW Std Deviation (36.4-46.3) fL RDW Coeff of Ruddy (11.5-14.5) % Plt Count (130-400) K/uL MPV (7.4-10.4) fL Immature Gran % (Auto) % Neut % (Auto) % Lymph % (Auto) % [place] % (Auto) % Eos % (Auto) % Baso % (Auto) % Neut # (Auto) (1.4-6.5) K/uL Lymph # (Auto) (1.2-3.4) K/uL [place] # (Auto) (0.11-0.59) K/uL Eos # (Auto) (0-0.5) K/uL Baso # (Auto) (0-0.2) K/uL Immature Gran # (Auto) (0.00-0.02) K/uL PT (9.0-12.0) Seconds INR (0.9-1.1) APTT (21.0-31.0) Seconds PTT Ratio Sodium (136-145) mmol/L Potassium (3.5-5.1) mmol/L Chloride (98-107) mmol/L Carbon Dioxide (21-32) mmol/L Anion Gap (3-11) BUN (7-18) mg/dl Creatinine (0.6-1.2) mg/dl Est Cr Clr Drug Dosing ml/min Est GFR ( Amer) ml/min Est GFR (Non-Af Amer) ml/min BUN/Creatinine Ratio (10-20) Glucose (70-99) mg/dl Lactate 0.9 (0.4-2.0) mmol/L Calcium (8.5-10.1) mg/dl Total Bilirubin (0.2-1) mg/dl AST (15-37) U/L ALT (12-78) U/L Alkaline Phosphatase (45-117) U/L Troponin I (0-0.045) ng/ml Total Protein (6.4-8.2) gm/dl Albumin (3.4-5.0) gm/dl Globulin (2.5-4.0) gm/dl Albumin/Globulin Ratio (0.9-2) Urine Color Yellow Urine Appearance Clear (Clear) Urine pH 8.0 H (4.5-7.5) Ur Specific [place] 1.009 (1.000-1.030) Urine Protein Negative (Negative) Urine Glucose (UA) Negative (Negative) Urine Ketones Negative (Negative) Urine Blood Negative (Negative) Urine Nitrite Negative (Negative) Urine Bilirubin Negative (Negative) Urine Urobilinogen Negative (Negative) Ur Leukocyte Esterase Negative (Negative) COVID-19 Eval Order SARS-CoV-2 (PCR) (Negative) Blood Type Antibody Screen Administered Medications Discontinued Medications Sodium Chloride (Nss) 500 mls @ 999 mls/hr IV .Q31M MORENITA Stop: 04/08/21 11:30 Last Infusion: 04/08/21 12:20 Dose: 0 mls/hr Documented by: [id number] Admin: 04/08/21 11:20 Dose: 999 mls/hr Documented by: [id number] Sodium Chloride (Nss 1000ml) 500 mls @ 999 mls/hr IV .Q31M ONE Stop: 04/08/21 12:34 Last Infusion: 04/08/21 13:10 Dose: 0 mls/hr Documented by: [id number] Admin: 04/08/21 13:00 Dose: 999 mls/hr Documented by: [id number] Imaging Data Radiologist's Impression: Chest X-Ray 04/08/21 10:57 XR chest 1V portable HISTORY: 70 years-old Female weak acute weakness COMPARISON: 03/04/2021 TECHNIQUE: Portable AP view the chest FINDINGS: Cardiac silhouette is enlarged. Dense calcifications of the mitral annulus. Chronic interstitial coarsening with new/progressive right lung base opacities. No pneumothorax, large pleural effusion or overt pulmonary edema. Degenerative changes of the shoulders and spine. IMPRESSION: 1. New right lung base opacities suggestive of atelectasis versus pneumonia. 2. Cardiomegaly without overt pulmonary edema. 3. Chronic interstitial coarsening. ACT 112: Negative or not required by law. The above report was generated using voice recognition software. It may contain grammatical, syntax or spelling errors. Electronically signed by: Josh Marino M.D. 04/08/2021 11:[address] 04/08/21 11:00 CT head/brain wo con CLINICAL HISTORY: 70 years-old Female with weak. Acute weakness TECHNIQUE: Multiple axial CT images of the head were obtained without contrast. A dose lowering technique was utilized adhering to the principles of ALARA. CT DOSE: 614.27 mGy.cm COMPARISON: Head CT 02/04/2021 FINDINGS: No acute intracranial hemorrhage, midline shift, intra-axial mass, hydrocephalus, territorial ischemia or abnormal extra-axial collection. Age- related involutional changes. White matter hypodensities suggestive of chronic microvascular ischemic disease. Cerebral vascular calcifications. Small chronic lacunar infarct of the left parietal lobe hernandez radiata. 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 Tiny hypodensity of the anterior limb left internal capsule on image 16 suggestive of a chronic lacunar infarct. Diffusely heterogeneous appearance of the calvarium with a mottled appearance is stable from comparison. No acute calvarial fracture. Trace right and large left mastoid effusions with fluid also present within the left middle ear cavity. Mild mucoperiosteal thickening of the paranasal sinuses. Unremarkable soft tissues. Prior bilateral lens repair. IMPRESSION: 1. Chronic findings as above without acute intracranial abnormality. 2. Trace right and large left mastoid effusions. ACT 112: Negative or not required by law. The above report was generated using voice recognition software. It may contain grammatical, syntax or spelling errors. Electronically signed by: Josh Marino M.D. 04/08/2021 11:46 AM Discharge Plan Visit Data Chief Complaint: Rectal Bleed Stated Complaint: BLOOD IN STOOL ED Provider: Jim Ruelas Discharge Problem: Weakness, Anemia, Heme positive stool, Acute GI bleeding Patient Disposition: Admitted As Inpatient Condition: Fair Discharge Instructions Interventions: ED Discharge Assessment Last Done: 04/08/21 14:34
[2021-04-08 11:19] LABS: Basophils # (auto) 0.02 K/uL (0-0.2); Basophils % (auto) 0.2 %; Eosinophils # (auto) 0.05 K/uL (0-0.5); Eosinophils % (auto) 0.5 %; Hematocrit (blood only) 32.7 % (37-47); Hemoglobin 10.2 g/dL (12.0-16.0); Immature Granulocytes # (auto) 0.02 K/uL (0.00-0.02); Immature Granulocytes % (auto) 0.2 %; Lymphocytes # (auto) 1.55 K/uL (1.2-3.4); Lymphocytes % (auto) 14.5 %; Mean Corpuscular Hemoglobin 28.3 pg (25-34); Mean Corpuscular Hgb Conc 31.2 g/dL (32-36); Mean Corpuscular Volume 90.6 fL (80-100); Mean Platelet Volume 8.3 fL (7.4-10.4); Monocytes # (auto) 0.77 K/uL (0.11-0.59); Monocytes % (auto) 7.2 %; Neutrophils # (auto) 8.26 K/uL (1.4-6.5); Neutrophils % (auto) 77.4 %; Platelet Count 259 K/uL (130-400); RDW Coefficient of Variation 19.8 % (11.5-14.5); RDW Standard Deviation 65.9 fL (36.4-46.3); Red Blood Count 3.61 M/uL (4.2-5.4); White Blood Count 10.67 K/uL (4.8-10.8)
--- NOTE | 2021-04-08 11:26 | XRay Report ---
XR chest 1V portable HISTORY: 70 years-old Female weak acute weakness COMPARISON: 03/04/2021 TECHNIQUE: Portable AP view the chest FINDINGS: Cardiac silhouette is enlarged. Dense calcifications of the mitral annulus. Chronic interstitial coar sening with new/progressive right lung base opacities. No pneumothorax, large pleural effusion or ove rt pulmonary edema. Degenerative changes of the shoulders and spine. IMPRESSION: 1. New right lung base opacities suggestive of atelectasis versus pneumonia. 2. Cardiomegaly without overt pulmonary edema. 3. Chronic interstitial coarsening. ACT 112: Negative or not required by law. The above report was generated using voice recognition software. It may contain grammatical, syntax o r spelling errors. Electronically signed by: Josh Marino M.D. 04/08/2021 11:25 AM
[2021-04-08 11:32] LABS: Partial Thromboplastin Ratio 0.9; Partial Thromboplastin Time 23.4 Seconds (21.0-31.0); Prothrombin Time 10.3 Seconds (9.0-12.0)
--- NOTE | 2021-04-08 11:47 | CT Scan Report ---
CT head/brain wo con CLINICAL HISTORY: 70 years-old Female with weak. Acute weakness TECHNIQUE: Multiple axial CT images of the head were obtained without contrast. A dose lowering tech nique was utilized adhering to the principles of ALARA. CT DOSE: 614.27 mGy.cm COMPARISON: Head CT 02/04/2021 FINDINGS: No acute intracranial hemorrhage, midline shift, intra-axial mass, hydrocephalus, territorial ischemi a or abnormal extra-axial collection. Age-related involutional changes. White matter hypodensities link ggestive of chronic microvascular ischemic disease. Cerebral vascular calcifications. Small chronic l acunar infarct of the left parietal lobe hernandez radiata. Unchanged 11 mm parafalcine meningioma adjac ent to left frontal lobe on image 17 series 2. Tiny hypodensity of the anterior limb left internal ca psule on image 16 suggestive of a chronic lacunar infarct. Diffusely heterogeneous appearance of the calvarium with a mottled appearance is stable from comparis on. No acute calvarial fracture. Trace right and large left mastoid effusions with fluid also present within the left middle ear cavity. Mild mucoperiosteal thickening of the paranasal sinuses. Unremark able soft tissues. Prior bilateral lens repair. IMPRESSION: 1. Chronic findings as above without acute intracranial abnormality. 2. Trace right and large left mastoid effusions. ACT 112: Negative or not required by law. The above report was generated using voice recognition software. It may contain grammatical, syntax o r spelling errors. Electronically signed by: Josh Marino M.D. 04/08/2021 11:46 AM
[2021-04-08] MEDS ORDERED: SODIUM CHLORIDE 0.9% 1000ML 500 ML IV ONE (12:04)
[2021-04-08 12:56] LABS: Alanine Aminotransferase 24 U/L (12-78); Aspartate Aminotransferase 25 U/L (15-37); BUN Creatinine Ratio 19.5 (10-20); Blood Urea Nitrogen 20 mg/dl (7-18); Calcium 8.6 mg/dl (8.5-10.1); Carbon Dioxide 27 mmol/L (21-32); Chloride 108 mmol/L (98-107); Creatinine Clr Calc Pharmacy 42.6 ml/min; Est GFR (African American) 62.9 ml/min; Est GFR (Non-African American) 54.3 ml/min; Glucose 116 mg/dl (70-99); Sodium 141 mmol/L (136-145)
[2021-04-08 13:00] LABS: Albumin Globulin Ratio 0.9 (0.9-2); Alkaline Phosphatase 80 U/L (45-117); Bilirubin,Total 0.5 mg/dl (0.2-1); Globulin 3.5 gm/dl (2.5-4.0); Total Protein 6.5 gm/dl (6.4-8.2); Troponin I < 0.015 ng/ml (0-0.045)
[2021-04-08 13:38] LABS: Appearance Urine Clear (Clear); Bilirubin Urine Negative (Negative); Blood Urine Negative (Negative); Color Urine Yellow; Glucose Urine UA Negative (Negative); Ketones Urine Negative (Negative); Leukocyte Esterase Urine Negative (Negative); Nitrite Urine Negative (Negative); Protein Urine Negative (Negative); Specific Gravity Urine 1.009 (1.000-1.030); Urobilinogen Urine Negative (Negative)
--- NOTE | 2021-04-08 14:04 | Electrocardiogram Report ---
Test Reason : Blood Pressure : / mmHG Vent. Rate : 084 BPM Atrial Rate : 084 BPM P-R Int : 142 ms QRS Dur : 082 ms QT Int : 404 ms P-R-T Axes : 060 030 029 degrees QTc Int : 477 ms Normal sinus rhythm Normal ECG When compared with ECG of 05-MAR-2021 14:49, No significant change was found Confirmed by Clovis Webster ([id number]) on 04/08/2021 2:03:43 PM Referred By: REFERRED SELF Confirmed By:Mc Webster
--- NOTE | 2021-04-08 14:18 | History & Physical Report ---
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 Recent admissions 2/2 to bleeding, iron def anemia requiring transfusions. She is also receiving monoferric as outpt; following heme/onc. Upper and Lower GI negative for bleed. 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 Weakness Iron Def Anemia Occult blood in stool chronic H&H actually improved to 10.2 and 32.7 Monitor H&H every 8 Type and screen, blood consent obtained Consult GI, patient has scheduled procedure with Dr. Gaston on 05/[address] on IV PPI BID consult gastroenterology Cough Patient reports chronic cough, unknown duration Chest x-ray shows new right lung basilar opacity suggestive of atelectasis versus pneumonia Rhonchi noted on exam, afebrile and WBC 10.6k Obtain procalcitonin - which is normal - will hold off of antibiotics at this point continue muccinex, encourage incentive spirometry Dysphagia/Aspiration She is been seen and evaluated by speech therapy as well as underwent video of fluoroscopy She has no evidence of aspiration even with thickened liquids Current recommendation is for minced and moist diet, thin liquids with aspiration precautions Very high risk Hx of CVA Most recently during admission in December, infarct of left caudate No residual deficits, no current focal deficit CT head unchanged Continue aspirin for now, previously had been on aspirin and Plavix but this was DC'd secondary to GI bleeding Ambulatory Dysfunction consult PT/OT CKD stage III BUN/creatinine 20 and 1.03 Appears mildly dry Give gentle IV fluid x1 L repeat in a.m. HTN bp elevated 141/73 not on any antihypertensives monitor HLD continue statin Hypothyroidism continue levothyroxine DVT ppx: SCD/TEDS 2/2 to recurrent GIB Dispo: med tele PCP: Vivienne Pendleton FULL CODE Patient was seen and examined in collaboration with Dr. Bronson, please see addendum History of Present Illness Chief Complaint: Weakness and black stools x 1 day. Primary Care Provider: Max Pendleton, This is a 70-year-old female who has significant past medical history of HTN, HLD, hypothyroidism, CVA, 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 Of significance patient with recent hospitalization starting 01/24 to 02/01/2021 secondary to anemia and GI bleed with a hemoglobin of 5.8 on admission requiring transfusion as well as acute new CVA of the left caudate and pericardial effusions. She was restarted on aspirin and Plavix. Unfortunately patient was readmitted on 02/05 to 02/13/2021 with recurrent anemia and a hemoglobin of 6.3. She has been taken off Plavix but maintained on aspirin per neurology. GI had patient scheduled for outpatient capsule endoscopy. Unfortunately patient again rehospitalized 03/04 to 03/07/2021 with recurrent GI bleeding and hemoglobin of 6.7 in ER requiring transfusion. She has had a EGD which revealed gastritis and a negative colonoscopy recently. Hemoglobin remained stable. She was also treated for UTI during this admission. She presents today after waking up this morning feeling generally weak having black tarry stool. In regards to her anemia she has been following outpatient hematology oncology and did receive MonoferricX1 dose on 03/23/2021. Per ED provider and patient she did undergo video capsule endoscopy which revealed AVM of small bowel, but these reports are not available. She states this morning when she got up she felt generally very weak and had significant difficulty walking. When she did make her way to the bathroom she had very hard time getting off the commode after having a bowel movement. She noted her stools were black. She denies any recent fever, chills, sweats, lightheaded, dizzy, chest pain, shortness of breath, URI symptoms, nausea, vomiting, abdominal pain. She does have a chronic moist cough. In ED patient made hemodynamically stable. Her hemoglobin and hem atocrit was 10.2 and 30.7 respectively. Further lab abnormalities include BUN [address] was without acute intracranial abnormalities. Chest x-ray reveals new right lung basilar opacity suggestive of atelectasis versus pneumonia. Chronic interstitial coarsening. Allergies Allergy/AdvReac Type Severity Reaction Status Date / Time latex Allergy Unknown RASH Verified 04/08/21 12:47 No Known Drug Allergies Allergy Unknown . Verified 04/08/21 12:47 Home Medications Medication Instructions Recorded Confirmed Type atorvastatin 40 mg tablet 40 mg PO QAM 10/06/18 04/08/21 History calcium carbonate-vitamin D3 500 1 tab PO QAM 10/06/18 04/08/21 History mg (1,250 mg)-600 unit tablet (Os-Tobias 500 + D3) levothyroxine 50 mcg tablet 50 mcg PO QAM 10/06/18 04/08/21 History omega 8-wcm-riv-fish oil 1,000 mg 1 cap PO QAM 10/06/18 04/08/21 History (120 mg-180 mg) capsule (Fish Oil) acetaminophen 325 mg tablet 325 mg PO Q6H PRN 01/24/21 04/08/21 History (Tylenol) docusate sodium 100 mg tablet 100 mg PO BID 01/24/21 04/08/21 History loratadine 10 mg tablet (Claritin) 10 mg PO QAM 01/24/21 04/08/21 History multivitamin 1 tab PO QAM 01/24/21 04/08/21 History simethicone 80 mg tablet 80 mg PO Q6 PRN 01/24/21 04/08/21 History guaifenesin 600 mg tablet, 600 mg PO Q12 #14 tab 01/29/21 04/08/21 Rx extended release 12 hr (Mucinex) pantoprazole 40 mg tablet,delayed 40 mg PO BID #60 tab 02/13/21 04/08/21 Rx release ferrous sulfate 325 mg (65 mg 325 mg PO BID 03/04/21 04/08/21 History iron) tablet Lactobacillus acidoph-L.bulgaricus 1 tab PO BID #30 tab 03/06/21 04/08/21 Rx 1 million cell chewable tablet (Lactinex) aspirin 81 mg tablet,delayed 81 mg PO DAILY 04/08/21 04/08/21 History release Past Med/Surg History Medical History Adnexal mass CT [facility] 05/01/20 - 7.2 x 4.8 cm cystic L adnexal mass s/p total hyster and BSO 05/2020 Anemia Aspiration into airway chronic Benign hypertension (09/07/11) Cerebrovascular disease (09/07/11) Cholelithiasis CT [facility] 05/01/20 CKD (chronic kidney disease) stage 3, GFR 30-59 ml/min Dementia Dysphagia GI bleed History of acute lymphoid leukemia History of adenomatous polyp of colon HLD (hyperlipidemia) Meningioma " interhemispheric frontal mass 4 x 9 mm per MRI 01/25/14" Surgical History (Updated 04/08/21 @ 14:16 by Hanane Gregorio PA-C) History of bilateral hip replacements 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 History of sinus surgery History of total hysterectomy with bilateral salpingo-oophorectomy (BSO) Status post bilateral hip replacements R 1995; L2001 R redo 2006 Family History (Updated 04/08/21 @ 14:16 by Hanane Gregorio PA-C) Mother Lung disease Sister Cirrhosis GI bleed Social History Smoking Status: Never smoker Second Hand Exposure: No; Hx Alcohol Use: No Hx Substance Use: No Preferred Language: Spanish Communication Ability: Effective Licensed Clinical Psychologist Required: No Beliefs That Will Affect Care: None marital status: Current Living Situation: Spouse Current Living Situation Comment: lives with son and current occupational status: retired Feels Safe at Home: Yes Safety Concerns: Feels Safe At This Time Assistive Devices: Cane and Walker Review of Systems Review of Systems: All systems reviewed & are unremarkable except as noted in HPI & below Physical Exam Physical Exam: Constitutional: Elderly, thin, petite, F, vitals as above, NAD, sitting up in bed, pleasant, conversing easily but [place] Head: Normocephalic, Atraumatic Eyes: PERRL, conjunctivae normal, anicteric sclerae ENMT: external ear and nose normal, oropharynx normal Neck: trachea midline, no thyromegaly normal visual inspection Respiratory: +moist cough, +rhonchi, normal respiratory effort, lungs clear to auscultation, no wheeze, rales, rhonchi. Normal insp/exp effort, no accessory muscle use Cardiovascular: RRR, no murmur, no edema Vessels: no JVD or carotid bruit Chest: normal inspection of chest Abdomen: normal bowel sounds, soft, nontender, no hepatosplenomegaly Musculoskeletal: no cyanosis or clubbing, extremities motor strength 5/5 Skin: no rashes, warm and dry normal turgor Neurologic: PERRL, EOMI, accommodation nl, no face palsy, no dysarthria CN's II-XI intact bilaterally and moves all extremities Psychiatric: A+Ox3 to basics, euthymic affect Lymphatic: no cervical or axillary lymphadenopathy : deferred Results & Data Results & Data ([facility]) Vital Signs (Past 12 Hours) Vital Signs Temp Pulse Resp BP Pulse Ox 04/08/21 12:40 78 19 98 04/08/21 12:30 78 14 97 04/08/21 12:20 77 17 97 04/08/21 12:10 75 22 95 04/08/21 12:00 75 20 04/08/21 11:50 76 21 04/08/21 11:40 78 22 04/08/21 11:35 80 23 04/08/21 11:24 82 24 95 04/08/21 09:58 36.6 C 87 16 141/73 H 96 Diagnostic Findings Chest X-Ray 04/08/21 10:57 XR chest 1V portable HISTORY: 70 years-old Female weak acute weakness COMPARISON: 03/04/2021 TECHNIQUE: Portable AP view the chest FINDINGS: Cardiac silhouette is enlarged. Dense calcifications of the mitral annulus. Chronic interstitial coarsening with new/progressive right lung base opacities. No pneumothorax, large pleural effusion or overt pulmonary edema. Degenerative changes of the shoulders and spine. IMPRESSION: 1. New right lung base opacities suggestive of atelectasis versus pneumonia. 2. Cardiomegaly without overt pulmonary edema. 3. Chronic interstitial coarsening. ACT 112: Negative or not required by law. The above report was generated using voice recognition software. It may contain grammatical, syntax or spelling errors. Electronically signed by: Josh Marino M.D. 04/08/2021 11:[address] 04/08/21 11:00 CT head/brain wo con CLINICAL HISTORY: 70 years-old Female with weak. Acute weakness TECHNIQUE: Multiple axial CT images of the head were obtained without contrast. A dose lowering technique was utilized adhering to the principles of ALARA. CT DOSE: 614.27 mGy.cm COMPARISON: Head CT 02/04/2021 FINDINGS: No acute intracranial hemorrhage, midline shift, intra-axial mass, hydrocephalus, territorial ischemia or abnormal extra-axial collection. Age- related involutional changes. White matter hypodensities suggestive of chronic microvascular ischemic disease. Cerebral vascular calcifications. Small chronic lacunar infarct of the left parietal lobe hernandez radiata. 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 Tiny hypodensity of the anterior limb left internal capsule on image 16 suggestive of a chronic lacunar infarct. Diffusely heterogeneous appearance of the calvarium with a mottled appearance is stable from comparison. No acute calvarial fracture. Trace right and large left mastoid effusions with fluid also present within the left middle ear cavity. Mild mucoperiosteal thickening of the paranasal sinuses. Unremarkable soft tissues. Prior bilateral lens repair. IMPRESSION: 1. Chronic findings as above without acute intracranial abnormality. 2. Trace right and large left mastoid effusions. ACT 112: Negative or not required by law. The above report was generated using voice recognition software. It may contain grammatical, syntax or spelling errors. Electronically signed by: Josh Marino M.D. 04/08/2021 11:46 AM Medications Administered Medication List Discontinued Medications Sodium Chloride (Nss) 500 mls @ 999 mls/hr IV .Q31M MORENITA Stop: 04/08/21 11:30 Last Infusion: 04/08/21 12:20 Dose: 0 mls/hr Documented by: [id number] Admin: 04/08/21 11:20 Dose: 999 mls/hr Documented by: [id number] Sodium Chloride (Nss 1000ml) 500 mls @ 999 mls/hr IV .Q31M ONE Stop: 04/08/21 12:34 Last Infusion: 04/08/21 13:10 Dose: 0 mls/hr Documented by: [id number] Admin: 04/08/21 13:00 Dose: 999 mls/hr Documented by: [id number] ECG Rate (beats per minute): 84 Rhythm: normal sinus Findings: + prolonged QT (qtc 477ms) COVID-19 Results Results COVID-19 Adm Lab Results: RBC 3.61 M/uL (4.2-5.4) L 04/08/21 WBC 10.67 K/uL (4.8-10.8) 04/08/21 Hgb 10.2 g/dL (12.0-16.0) L 04/08/21 Hct 32.7 % (37-47) L 04/08/21 Plt Count 259 K/uL (130-400) 04/08/21 Neutrophils (%) (Auto) 77.4 % 04/08/21 Lymphocytes (%) (Auto) 14.5 % 04/08/21 Monocytes # (Auto) 0.77 K/uL (0.11-0.59) H 04/08/21 Eosinophils # (Auto) 0.05 K/uL (0-0.5) 04/08/21 Immature Granulocyte % (Auto) 0.2 % 04/08/21 Neutrophils # (Auto) 8.26 K/uL (1.4-6.5) H 04/08/21 Lymphocytes # (Auto) 1.55 K/uL (1.2-3.4) 04/08/21 Monocytes # (Auto) 0.77 K/uL (0.11-0.59) H 04/08/21 Eosinophils # (Auto) 0.05 K/uL (0-0.5) 04/08/21 Basophils # (Auto) 0.02 K/uL (0-0.2) 04/08/21 Immature Granulocyte # (Auto) 0.02 K/uL (0.00-0.02) 04/08/21 Na 141 mmol/L (136-145) 04/08/21 K 4.0 mmol/L (3.5-5.1) 04/08/21 Cl 108 mmol/L (98-107) H 04/08/21 CO2 27 mmol/L (21-32) 04/08/21 Anion Gap 6.0 (3-11) 04/08/21 BUN 20 mg/dl (7-18) H 04/08/21 Creatinine 1.03 mg/dl (0.6-1.2) 04/08/21 BUN/Creatinine Ratio 19.5 (10-20) 04/08/21 Glucose Level 116 mg/dl (70-99) H 04/08/21 Ca 8.6 mg/dl (8.5-10.1) 04/08/21 Total Bilirubin 0.5 mg/dl (0.2-1) 04/08/21 AST/SGOT 25 U/L (15-37) 04/08/21 ALT/SGPT 24 U/L (12-78) 04/08/21 Alkaline Phosphatase 80 U/L (45-117) 04/08/21 Total Protein 6.5 gm/dl (6.4-8.2) 04/08/21 Albumin 3.0 gm/dl (3.4-5.0) L 04/08/21 Globulin 3.5 gm/dl (2.5-4.0) 04/08/21 Albumin/Globulin Ratio 0.9 (0.9-2) 04/08/21 Troponin I < 0.015 ng/ml (0-0.045) 04/08/21 Procalcitonin < 0.05 ng/ml (0-0.5) 04/08/21 PTT 23.4 Seconds (21.0-31.0) 04/08/21 INR 1.0 (0.9-1.1) 04/08/21 COVID-19 PCR NEGATIVE (Negative) 04/08/21 Chest X-Ray 04/08/21 Code Status & VTE Plan Code Status Full Code VTE Prophylaxis Plan VTE Prophylaxis will be ordered: Yes Supervising Physician Co-Signing Physician Notes I saw this patient with the physician assistant professor of music, I participated in the history, physical, review of systems, and physical exam. I reviewed the medications with the patient and the physician assistant professor of music and helped reconcile the medications. I helped take a detailed family and social history as well. I formulated the assessment and plan personally with the physician assistant professor of music and went over it with the patient. Physical Exam Gen-AAO x 3, NAD, Afebrile Head-NCAT, EOMI, PERRLA, Anicteric Sclera, No Posterior Pharyngeal Erythema Neck-Supple, No JVD, No Thyromegaly, No Masses, No LAD, No Bruits Lungs-Clear to Auscultation Bilaterally, No Rales, No Rhonchi, No Wheezing, No Crepitus Chest-No S4, +S1, +S2, No S3, No Murmurs, No Rubs, No Gallops, No Ectopy Abdomen-Soft, Bowel Sounds Present, Non Tender, Non Distended, No Hepatomegaly, No Splenomegaly, No Palpable Masses, No Rebound, No Rigidity, No Guarding Musculoskeletal-Full Range of Motion Bilaterally, No CVAT Extremities-No Cyanosis, No Clubbing, No Edema Nuero-Cranial Nerves II-XII grossly intact, Motor WNL, DTRs WNL, Strength WNL, Non Focal Psych-Normal Mood (1) Anemia Anemia type: unspecified type Qualified Code(s): D64.9 - Anemia, unspecified
[2021-04-08] MEDS ORDERED: POLYETHYLENE (MIRALAX) 17 GM PACK PO PRN (15:13)
[2021-04-08] MEDS ORDERED: ACETAMINOPHEN 325 MG TAB PO PRN ×2 (15:13)
[2021-04-08] MEDS ORDERED: PROMETHAZINE HCL 6.25 MG in SODIUM CHLORIDE 0.9% 50 ML IV PRN (15:13)
[2021-04-08] MEDS ORDERED: MAGNESIUM HYDROXIDE SUSP 30 ML UDC PO PRN (15:13)
[2021-04-08] MEDS ORDERED: ALUMINUM/MAGNESIUM SUSP 30 ML UDC PO PRN (15:13)
[2021-04-08] MEDS ORDERED: SODIUM CHLORIDE 0.9% 1000ML 1,000 ML IV SCH (15:13)
[2021-04-08 18:49] LABS: Hemoglobin 10.6 g/dL (12.0-16.0)
[2021-04-08] MEDS: guaiFENesin 600 MG TABCR PO SCH (20:44)
[2021-04-08] MEDS: PANTOprazole 40 MG in SYRINGE 0 ML IV SCH (20:44)
[2021-04-08] MEDS: DOCUSATE SODIUM 100 MG CAP PO SCH (20:44)
[2021-04-08] MEDS: FERROUS SULFATE 325 MG TAB PO SCH (20:44)
[2021-04-08] MEDS ORDERED: XOPENEX/ATROVENT 1.25mg/0.5MG NEB COMBO NEB STA (23:37)
[2021-04-08] MEDS ORDERED: XOPENEX/ATROVENT 1.25mg/0.5MG NEB COMBO NEB PRN (23:37)
--- NOTE | 2021-04-08 23:38 | Communication Note ---
Date of Service: April 08, 2021 Patient with wheezing and cough productive of yellow sputum as per RN Chest x-ray on admission showed new right lung base opacity. Ap Aspiration pneumonia Unasyn followed by Augmentin course Will relay to AM provider.
[2021-04-08] MEDS ORDERED: AMPICILLIN/SULBACTAM SOD 3,000 MG in 0.9 % SODIUM CHLORIDE 100 ML IV STA (23:40)
[2021-04-08] MEDS ORDERED: LEVALBUTEROL 1.25MG/0.5ML NEB INH PRN (23:45)
[2021-04-08] MEDS ORDERED: IPRATROPIUM BROMIDE NEB SOLN 0.02% 2.5 ML VIAL INH PRN (23:45)
[2021-04-08] MEDS ORDERED: methylPREDNISolone 20 MG in SYRINGE 0 ML IV STA (23:48)
[2021-04-08] MEDS ORDERED: LEVALBUTEROL 1.25MG/0.5ML NEB INH STA (23:49)
[2021-04-08] MEDS ORDERED: IPRATROPIUM BROMIDE NEB SOLN 0.02% 2.5 ML VIAL INH STA (23:49)
[2021-04-09] MEDS: BENZONATATE 100 MG CAPSULE PO PRN ×2 (00:13→15:18)
[2021-04-09 01:37] LABS: Hematocrit (blood only) 33.3 % (37-47); Hemoglobin 10.4 g/dL (12.0-16.0)
[2021-04-09] MEDS ORDERED: Augmentin: PHARMACY CONSULT IN PROGRESS PRN (03:39)
[2021-04-09] MEDS: LEVOTHYROXINE SODIUM 50 MCG TABLET PO SCH (06:18)
--- NOTE | 2021-04-09 08:36 | Gastrointestinal Consultation ---
Date of Consultation April 09, 2021 Assessment & Plan (1) Weakness: 70 year old female with history of SUSHIL, obscure GIB recent EGD/Colon w/o source identified, VCE w/ several small bowel AVMs admitted w/ weakness, heme + stools and anemia. HGB is stable, BUN at baseline and she is passing brown stools per documentation. - Continue conservative management - Will discuss with attending but enteroscopy may be low yield in the absence of active GI bleed and concern for acute PNA - Can continue IV PPI BID today - Transition to PO PPI BID tomorrow - Trend HGB - Monitor and document stools Thank you for allowing us to participate in the care of this patient. Please call with any acute changes, questions or concerns. Please see addendum below with additional recommendation from my supervising physician. (2) Anemia: Supervising Physician Co-Signing Physician Notes Attg add: I interviewed and examined pt, reviewed chart and labs. Pt previously with obscure GIb on DAPT s/p EGD/Cscopy neg with VCE showing AVMs now with stable hgb but heme positive stools on ASA. She is not actively bleeding. No need endoscopic w/u in the absence of overt blood loss. No need for IV PPI. Of note, PPi therapy not indicated for GI bleeding prophylaxis in this pt with presumed small bowel source; ok to continue if she has another indication for this. No further recommendations. Please call with questions. History of Present Illness Reason for Consultation: concern for GIB Requesting Physician: Ke Attending Physician: Schuyler Dempsey MD History of Present Illness 70 year old female with history of hypothyroidism, dyslipidemia, HTN, CKD, CVA, ALL, obscure GIB, SUSHIL admitted w/ weakness, heme positive stools. This AM but fatigue, sleeping, awakes to name and is oriented to person/place but is quite drowsy and cannot provide much history. Notes she is moving her bowels, not visibly seeing any black or bloody stools. Denies abd pain, nausea, vomiting. VCE 02/2021: several AVM of proximal jejunum Colonoscopy 01/2021: The examined portion of the ileum was normal. - Diverticulosis in the sigmoid colon. - Non-bleeding internal hemorrhoids EGD 01/2021: Normal upper and middle esophagus. - Esophageal mucosal changes suspicious for Segal's esophagus. Biopsied. - Medium-sized hiatal hernia. - Normal gastric fundus and gastric body. - Gastritis. Biopsied. - Normal examined duodenum. Biopsied. Allergies Allergy/AdvReac Type Severity Reaction Status Date / Time latex Allergy Unknown RASH Verified 04/08/21 12:47 No Known Drug Allergies Allergy Unknown . Verified 04/08/21 12:47 Home Medications Medication Instructions Recorded Confirmed Type atorvastatin 40 mg tablet 40 mg PO QAM 10/06/18 04/08/21 History calcium carbonate-vitamin D3 500 1 tab PO QAM 10/06/18 04/08/21 History mg (1,250 mg)-600 unit tablet (Os-Tobias 500 + D3) levothyroxine 50 mcg tablet 50 mcg PO QAM 10/06/18 04/08/21 History omega 2-fvl-ajg-fish oil 1,000 mg 1 cap PO QAM 10/06/18 04/08/21 History (120 mg-180 mg) capsule (Fish Oil) acetaminophen 325 mg tablet 325 mg PO Q6H PRN 01/24/21 04/08/21 History (Tylenol) docusate sodium 100 mg tablet 100 mg PO BID 01/24/21 04/08/21 History loratadine 10 mg tablet (Claritin) 10 mg PO QAM 01/24/21 04/08/21 History multivitamin 1 tab PO QAM 01/24/21 04/08/21 History simethicone 80 mg tablet 80 mg PO Q6 PRN 01/24/21 04/08/21 History guaifenesin 600 mg tablet, 600 mg PO Q12 #14 tab 01/29/21 04/08/21 Rx extended release 12 hr (Mucinex) pantoprazole 40 mg tablet,delayed 40 mg PO BID #60 tab 02/13/21 04/08/21 Rx release ferrous sulfate 325 mg (65 mg 325 mg PO BID 03/04/21 04/08/21 History iron) tablet Lactobacillus acidoph-L.bulgaricus 1 tab PO BID #30 tab 03/06/21 04/08/21 Rx 1 million cell chewable tablet (Lactinex) aspirin 81 mg tablet,delayed 81 mg PO DAILY 04/08/21 04/08/21 History release Patient History Medical History Adnexal mass CT [facility] 05/01/20 - 7.2 x 4.8 cm cystic L adnexal mass s/p total hyster and BSO 05/2020 Anemia Aspiration into airway chronic Benign hypertension (09/07/11) Cerebrovascular disease (09/07/11) Cholelithiasis CT [facility] 05/01/20 CKD (chronic kidney disease) stage 3, GFR 30-59 ml/min Dementia Dysphagia GI bleed History of acute lymphoid leukemia History of adenomatous polyp of colon HLD (hyperlipidemia) Meningioma " interhemispheric frontal mass 4 x 9 mm per MRI 01/25/14" Surgical History (Updated 04/08/21 @ 14:16 by Hanane Gregorio PA-C) History of bilateral hip replacements 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 History of sinus surgery History of total hysterectomy with bilateral salpingo-oophorectomy (BSO) Status post bilateral hip replacements R 1995; L2001 R redo 2006 Family History (Updated 04/08/21 @ 14:16 by Hanane Gregorio PA-C) Mother Lung disease Sister Cirrhosis GI bleed Social History Smoking Status: Never smoker Second Hand Exposure: No; Hx Alcohol Use: No Hx Substance Use: No Preferred Language: Bulgarian Communication Ability: Effective Bridge [place]man Required: No Beliefs That Will Affect Care: None marital status: Current Living Situation: Spouse Current Living Situation Comment: lives with son and current occupational status: retired Feels Safe at Home: Yes Safety Concerns: Feels Safe At This Time Assistive Devices: Cane and Walker Review of Systems Review of Systems: All systems reviewed & are unremarkable except as noted in HPI & below Physical Exam Constitutional: WD/WN, vitals as above Respiratory: normal respiratory effort and + cough; no respiratory distress Auscultation: + rhonchi Cardiovascular: RRR, no murmur, no edema Gastrointestinal (Abdomen): normal bowel sounds, soft, nontender, no hepatosplenomegaly Skin: no rashes, warm and dry Results & Data ([facility]) Vital Signs (Past 12 Hours) Vital Signs Temp Pulse Pulse Resp BP Pulse Ox 04/09/21 07:00 36.6 C 82 18 99/65 L 100 04/09/21 03:17 37.5 C 92 H 18 150/82 H 96 04/09/21 01:18 36.8 C 108 H 22 148/78 H 97 04/08/21 23:56 22 94 04/08/21 23:30 36.8 C 96 H 18 168/100 H 95 04/08/21 22:00 94 H Laboratory Results 04/09/21 04/08/21 04/08/21 Range/Units 01:28 18:15 15:32 WBC (4.8-10.8) K/uL RBC (4.2-5.4) M/uL Hgb 10.4 L 10.6 L (12.0-16.0) g/dL Hct 33.3 L 34.0 L (37-47) % MCV (80-100) fL MCH (25-34) pg MCHC (32-36) g/dL RDW Std Deviation (36.4-46.3) fL RDW Coeff of Ruddy (11.5-14.5) % Plt Count (130-400) K/uL MPV (7.4-10.4) fL Immature Gran % (Auto) % Neut % (Auto) % Lymph % (Auto) % [place] % (Auto) % Eos % (Auto) % Baso % (Auto) % Neut # (Auto) (1.4-6.5) K/uL Lymph # (Auto) (1.2-3.4) K/uL [place] # (Auto) (0.11-0.59) K/uL Eos # (Auto) (0-0.5) K/uL Baso # (Auto) (0-0.2) K/uL Immature Gran # (Auto) (0.00-0.02) K/uL PT (9.0-12.0) Seconds INR (0.9-1.1) APTT (21.0-31.0) Seconds PTT Ratio Sodium (136-145) mmol/L Potassium (3.5-5.1) mmol/L Chloride (98-107) mmol/L Carbon Dioxide (21-32) mmol/L Anion Gap (3-11) BUN (7-18) mg/dl Creatinine (0.6-1.2) mg/dl Est Cr Clr Drug Dosing ml/min Est GFR ( Amer) ml/min Est GFR (Non-Af Amer) ml/min BUN/Creatinine Ratio (10-20) Glucose (70-99) mg/dl Lactate (0.4-2.0) mmol/L Calcium (8.5-10.1) mg/dl Magnesium (1.8-2.4) mg/dl Total Bilirubin (0.2-1) mg/dl AST (15-37) U/L ALT (12-78) U/L Alkaline Phosphatase (45-117) U/L Troponin I (0-0.045) ng/ml Total Protein (6.4-8.2) gm/dl Albumin (3.4-5.0) gm/dl Globulin (2.5-4.0) gm/dl Albumin/Globulin Ratio (0.9-2) Procalcitonin < 0.05 (0-0.5) ng/ml Urine Color Urine Appearance (Clear) Urine pH (4.5-7.5) Ur Specific Berry (1.000-1.030) Urine Protein (Negative) Urine Glucose (UA) (Negative) Urine Ketones (Negative) Urine Blood (Negative) Urine Nitrite (Negative) Urine Bilirubin (Negative) Urine Urobilinogen (Negative) Ur Leukocyte Esterase (Negative) COVID-19 Eval Order SARS-CoV-2 (PCR) (Negative) Blood Type Antibody Screen 04/08/21 04/08/21 04/08/21 Range/Units 13:21 12:29 11:23 WBC (4.8-10.8) K/uL RBC (4.2-5.4) M/uL Hgb (12.0-16.0) g/dL Hct (37-47) % MCV (80-100) fL MCH (25-34) pg MCHC (32-36) g/dL RDW Std Deviation (36.4-46.3) fL RDW Coeff of Ruddy (11.5-14.5) % Plt Count (130-400) K/uL MPV (7.4-10.4) fL Immature Gran % (Auto) % Neut % (Auto) % Lymph % (Auto) % [place] % (Auto) % Eos % (Auto) % Baso % (Auto) % Neut # (Auto) (1.4-6.5) K/uL Lymph # (Auto) (1.2-3.4) K/uL [place] # (Auto) (0.11-0.59) K/uL Eos # (Auto) (0-0.5) K/uL Baso # (Auto) (0-0.2) K/uL Immature Gran # (Auto) (0.00-0.02) K/uL PT (9.0-12.0) Seconds INR (0.9-1.1) APTT (21.0-31.0) Seconds PTT Ratio Sodium (136-145) mmol/L Potassium (3.5-5.1) mmol/L Chloride (98-107) mmol/L Carbon Dioxide (21-32) mmol/L Anion Gap (3-11) BUN (7-18) mg/dl Creatinine (0.6-1.2) mg/dl Est Cr Clr Drug Dosing ml/min Est GFR ( Amer) ml/min Est GFR (Non-Af Amer) ml/min BUN/Creatinine Ratio (10-20) Glucose (70-99) mg/dl Lactate 0.9 (0.4-2.0) mmol/L Calcium (8.5-10.1) mg/dl Magnesium (1.8-2.4) mg/dl Total Bilirubin (0.2-1) mg/dl AST (15-37) U/L ALT (12-78) U/L Alkaline Phosphatase (45-117) U/L Troponin I (0-0.045) ng/ml Total Protein (6.4-8.2) gm/dl Albumin (3.4-5.0) gm/dl Globulin (2.5-4.0) gm/dl Albumin/Globulin Ratio (0.9-2) Procalcitonin (0-0.5) ng/ml Urine Color Yellow Urine Appearance Clear (Clear) Urine pH 8.0 H (4.5-7.5) Ur Specific Berry 1.009 (1.000-1.030) Urine Protein Negative (Negative) Urine Glucose (UA) Negative (Negative) Urine Ketones Negative (Negative) Urine Blood Negative (Negative) Urine Nitrite Negative (Negative) Urine Bilirubin Negative (Negative) Urine Urobilinogen Negative (Negative) Ur Leukocyte Esterase Negative (Negative) COVID-19 Eval Order SARS-CoV-2 (PCR) NEGATIVE (Negative) Blood Type Antibody Screen 04/08/21 04/08/2104/08/21 Range/Units 11:23 11:07 11:07 WBC (4.8-10.8) K/uL RBC (4.2-5.4) M/uL Hgb (12.0-16.0) g/dL Hct (37-47) % MCV (80-100) fL MCH (25-34) pg MCHC (32-36) g/dL RDW Std Deviation (36.4-46.3) fL RDW Coeff of Ruddy (11.5-14.5) % Plt Count (130-400) K/uL MPV (7.4-10.4) fL Immature Gran % (Auto) % Neut % (Auto) % Lymph % (Auto) % [place] % (Auto) % Eos % (Auto) % Baso % (Auto) % Neut # (Auto) (1.4-6.5) K/uL Lymph # (Auto) (1.2-3.4) K/uL [place] # (Auto) (0.11-0.59) K/uL Eos # (Auto) (0-0.5) K/uL Baso # (Auto) (0-0.2) K/uL Immature Gran # (Auto) (0.00-0.02) K/uL PT (9.0-12.0) Seconds INR (0.9-1.1) APTT (21.0-31.0) Seconds PTT Ratio Sodium 141 (136-145) mmol/L Potassium 4.0 (3.5-5.1) mmol/L Chloride 108 H (98-107) mmol/L Carbon Dioxide 27 (21-32) mmol/L Anion Gap 6.0 (3-11) BUN 20 H (7-18) mg/dl Creatinine 1.03 (0.6-1.2) mg/dl Est Cr Clr Drug Dosing 42.6 ml/min Est GFR ( Amer) 62.9 ml/min Est GFR (Non-Af Amer) 54.3 ml/min BUN/Creatinine Ratio 19.5 (10-20) Glucose 116 H (70-99) mg/dl Lactate (0.4-2.0) mmol/L Calcium 8.6 (8.5-10.1) mg/dl Magnesium 2.1 (1.8-2.4) mg/dl Total Bilirubin 0.5 (0.2-1) mg/dl AST 25 (15-37) U/L ALT 24 (12-78) U/L Alkaline Phosphatase 80 (45-117) U/L Troponin I < 0.015 (0-0.045) ng/ml Total Protein 6.5 (6.4-8.2) gm/dl Albumin 3.0 L (3.4-5.0) gm/dl Globulin 3.5 (2.5-4.0) gm/dl Albumin/Globulin Ratio 0.9 (0.9-2) Procalcitonin (0-0.5) ng/ml Urine Color Urine Appearance (Clear) Urine pH (4.5-7.5) Ur Specific Berry (1.000-1.030) Urine Protein (Negative) Urine Glucose (UA) (Negative) Urine Ketones (Negative) Urine Blood (Negative) Urine Nitrite (Negative) Urine Bilirubin (Negative) Urine Urobilinogen (Negative) Ur Leukocyte Esterase (Negative) COVID-19 Eval Order Covid19 at [facility] SARS-CoV-2 (PCR) (Negative) Blood Type Antibody Screen 04/08/21 04/08/21 04/08/21 Range/Units 11:07 11:07 11:07 WBC 10.67 (4.8-10.8) K/uL RBC 3.61 L (4.2-5.4) M/uL Hgb 10.2 L (12.0-16.0) g/dL Hct 32.7 L (37-47) % MCV 90.6 (80-100) fL MCH 28.3 (25-34) pg MCHC 31.2 L (32-36) g/dL RDW Std Deviation 65.9 H (36.4-46.3) fL RDW Coeff of Ruddy 19.8 H (11.5-14.5) % Plt Count 259 (130-400) K/uL MPV 8.3 (7.4-10.4) fL Immature Gran % (Auto) 0.2 % Neut % (Auto) 77.4 % Lymph % (Auto) 14.5 % [place] % (Auto) 7.2 % Eos % (Auto) 0.5 % Baso % (Auto) 0.2 % Neut # (Auto) 8.26 H (1.4-6.5) K/uL Lymph # (Auto) 1.55 (1.2-3.4) K/uL [place] # (Auto) 0.77 H (0.11-0.59) K/uL Eos # (Auto) 0.05 (0-0.5) K/uL Baso # (Auto) 0.02 (0-0.2) K/uL Immature Gran # (Auto) 0.02 (0.00-0.02) K/uL PT 10.3 (9.0-12.0) Seconds INR 1.0 (0.9-1.1) APTT 23.4 (21.0-31.0) Seconds PTT Ratio 0.9 Sodium (136-145) mmol/L Potassium (3.5-5.1) mmol/L Chloride (98-107) mmol/L Carbon Dioxide (21-32) mmol/L Anion Gap (3-11) BUN (7-18) mg/dl Creatinine (0.6-1.2) mg/dl Est Cr Clr Drug Dosing ml/min Est GFR ( Amer) ml/min Est GFR (Non-Af Amer) ml/min BUN/Creatinine Ratio (10-20) Glucose (70-99) mg/dl Lactate (0.4-2.0) mmol/L Calcium (8.5-10.1) mg/dl Magnesium (1.8-2.4) mg/dl Total Bilirubin (0.2-1) mg/dl AST (15-37) U/L ALT (12-78) U/L Alkaline Phosphatase (45-117) U/L Troponin I (0-0.045) ng/ml Total Protein (6.4-8.2) gm/dl Albumin (3.4-5.0) gm/dl Globulin (2.5-4.0) gm/dl Albumin/Globulin Ratio (0.9-2) Procalcitonin (0-0.5) ng/ml Urine Color Urine Appearance (Clear) Urine pH (4.5-7.5) Ur Specific Berry (1.000-1.030) Urine Protein (Negative) Urine Glucose (UA) (Negative) Urine Ketones (Negative) Urine Blood (Negative) Urine Nitrite (Negative) Urine Bilirubin (Negative) Urine Urobilinogen (Negative) Ur Leukocyte Esterase (Negative) COVID-19 Eval Order SARS-CoV-2 (PCR) (Negative) Blood Type O Positive Antibody Screen NEGATIVE (1) Anemia Anemia type: unspecified type Qualified Code(s): D64.9 - Anemia, unspecified
[2021-04-09 09:57] LABS: Mean Corpuscular Hemoglobin 28.4 pg (25-34); Mean Corpuscular Hgb Conc 31.3 g/dL (32-36); Mean Corpuscular Volume 90.9 fL (80-100); Mean Platelet Volume 8.9 fL (7.4-10.4); Platelet Count 267 K/uL (130-400); RDW Coefficient of Variation 19.9 % (11.5-14.5); RDW Standard Deviation 66.7 fL (36.4-46.3); Red Blood Count 3.52 M/uL (4.2-5.4)
[2021-04-09 10:09] LABS: Albumin Level 2.7 gm/dl (3.4-5.0); BUN Creatinine Ratio 15.2 (10-20); Calcium 8.3 mg/dl (8.5-10.1); Creatinine Clr Calc Pharmacy 49.7 ml/min; Est GFR (African American) 72.1 ml/min; Est GFR (Non-African American) 62.2 ml/min; Magnesium 1.5 mg/dl (1.8-2.4)
[2021-04-09 10:11] LABS: Albumin Globulin Ratio 0.8 (0.9-2); Bilirubin,Total 0.4 mg/dl (0.2-1); Globulin 3.5 gm/dl (2.5-4.0); Total Protein 6.2 gm/dl (6.4-8.2)
[2021-04-09] MEDS: guaiFENesin 600 MG TABCR PO SCH ×2 (15:15→20:22)
[2021-04-09] MEDS: PANTOprazole 40 MG in SYRINGE 0 ML IV SCH ×2 (15:15→20:46)
[2021-04-09] MEDS: ASPIRIN 81 MG ECTAB PO SCH (15:16)
[2021-04-09] MEDS: FERROUS SULFATE 325 MG TAB PO SCH ×2 (15:16→20:22)
[2021-04-09] MEDS: AMOXICILLIN/CLAVULANATE 875 MG TAB PO SCH ×2 (15:16→17:52)
[2021-04-09] MEDS: OMEGA-3 (PURIFIED FISH OIL) 1 GM CAP PO SCH (15:17)
[2021-04-09] MEDS: CALCIUM 600MG + VIT D 400 IU TAB PO SCH (15:17)
[2021-04-09] MEDS: MULTIVITAMIN TAB PO SCH (15:17)
[2021-04-09] MEDS: DOCUSATE SODIUM 100 MG CAP PO SCH ×2 (15:17→20:23)
[2021-04-09] MEDS: LORATADINE 10 MG TAB PO SCH (15:17)
[2021-04-09] MEDS: ATORVASTATIN 40 MG TAB PO SCH (15:17)
--- NOTE | 2021-04-09 17:37 | Hospitalist Progress Note ---
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 She is also receiving monoferric as outpt; following heme/onc. Upper and Lower GI negative for bleed. 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 Appreciate GI input and recommendation (3) Occult blood positive stool: (4) Cough: Plan: Patient reports chronic cough due to silent aspiration as per video swallow s tudy during her last admission Chest x-ray shows new right lung basilar opacity suggestive of atelectasis versus pneumonia Rhonchi noted on exam, afebrile and WBC 10.6k Obtain procalcitonin - which is normal - will hold off of antibiotics at this point continue muccinex, encourage incentive spirometry Has been getting Unasyn for aspiration pneumonia (5) History of CVA (cerebrovascular accident): (6) CKD (chronic kidney disease) stage 3, GFR 30-59 ml/min: (7) Benign hypertension: (8) Aspiration into airway: Plan: Dysphagia/Aspiration She is been seen and evaluated by speech therapy as well as underwent video of fluoroscopy She has no evidence of aspiration even with thickened liquids Current recommendation is for minced and moist diet, thin liquids with aspiration precautions Very high risk of aspiration Prior video swallow did show silent aspiration Appreciate speech therapy input and recommendation during this time Remains high risk for aspiration which needs to be discussed with the patient and the family members for further appropriate measures from here Has been put on Unasyn for possible aspiration pneumonia (9) Dysphagia: Plan: As above Plan: This is a 70-year-old female who has significant past medical history of HTN, HLD, hypothyroidism, CVA, 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 Weakness Iron Def Anemia Occult blood in stool chronic H&H actually improved to 10.2 and 32.7 Monitor H&H every 8 Type and screen, blood consent obtained Consult GI, patient has scheduled procedure with Dr. Gaston on 05/[address] on IV PPI BID consult gastroenterology Hx of CVA Most recently during admission in December, infarct of left caudate No residual deficits, no current focal deficit CT head unchanged Continue aspirin for now, previously had been on aspirin and Plavix but this was DC'd secondary to GI bleeding Ambulatory Dysfunction consult PT/OT CKD stage III BUN/creatinine 20 and 1.03 Appears mildly dry Give gentle IV fluid x1 L repeat in a.m. HTN bp elevated 141/73 not on any antihypertensives monitor HLD continue statin Hypothyroidism continue levothyroxine DVT ppx: SCD/TEDS / to recurrent GIB Dispo: med tele PCP: Vivienne Pendleton FULL CODE Admission and Anticipated Discharge Date Admission Date: April 08, 2021 Subjective 04/09/2021 The patient was seen and examined in medical telemetry unit She complains to a cough with whitish-yellow phlegm She denies any abdominal pain, nausea and or vomiting and her bowel has not moved yet She remains generally very weak and lethargic Review of Systems Review of Systems: All systems reviewed and are unremarkable except as noted below Constitutional: + fatigue and + malaise Gastrointestinal: Denies any abdominal pain, nausea and or vomiting Physical Exam Physical Exam: Lying in bed with some distress due to cough Constitutional: + ill appearing and + thin Eyes: PERRL, conjunctivae normal, anicteric sclerae ENMT: external ear and nose normal, oropharynx normal Neck: trachea midline, no thyromegaly Respiratory: + cough Auscultation: + diminished lung sounds and + crackles (At the bases) Cardiovascular: Rate/Rhythm: regular rate and regular rhythm; not tachycardic Heart Sounds: normal S1 and normal S2; no murmur Extremities: no edema Gastrointestinal (Abdomen): Inspection/Auscultation: normal bowel sounds; abdomen not distended Musculoskeletal: No acute arthritis in any joint Neurologic: Alert and awake. Generally very weak and lethargic Results & Data Results & Data ([facility]) Vital Signs (Past 12 Hours) Vital Signs Temp Pulse Pulse Resp BP Pulse Ox 04/09/21 15:20 36.6 C 79 16 117/78 96 04/09/21 15:00 85 04/09/21 11:57 36.5 C 75 18 116/70 95 04/09/21 10:38 86 04/09/21 07:00 36.6 C 82 18 99/65 L 100 Laboratory Results Short CBC 04/08/21 04/09/21 04/09/21 Range/Units 18:15 01:28 09:19 WBC 17.10 H (4.8-10.8) K/uL Hgb 10.6 L 10.4 L 10.0 L (12.0-16.0) g/dL Hct 34.0 L 33.3 L 32.0 L (37-47) % Plt Count 267 (130-400) K/uL 04/09/21 Range/Units 09:19 WBC (4.8-10.8) K/uL Hgb Cancelled (12.0-16.0) g/dL Hct Cancelled (37-47) % Plt Count (130-400) K/uL BMP 04/09/21 09:19 Sodium 141 Potassium 4.0 Chloride 108 H Carbon Dioxide 26 BUN 14 Creatinine 0.92 Glucose 126 H Calcium 8.3 L Liver Function 04/09/21 Range/Units 09:19 Total Bilirubin 0.4 (0.2-1) mg/dl AST 40 H (15-37) U/L ALT 37 (12-78) U/L Alkaline Phosphatase 79 (45-117) U/L Albumin 2.7 L (3.4-5.0) gm/dl Medications Administered Current Inpatient Medications Acetaminophen (Acetaminophen 325 Mg Tab) 650 mg PO Q4H PRN PRN Reason: Pain or Fever Stop: 05/08/21 15:12 Al Hydrox/Mg Hydrox/Simethicone (Aluminum/Magnesium Susp 30 Ml Udc) 15 ml PO Q4H PRN PRN Reason: Dyspepsia Stop: 05/08/21 15:12 Amoxicillin/Clavulanate Potassium (Amoxicillin/Clavulanate 875 Mg Tab) 1 tab PO BIDM [facility]; Protocol Stop: 04/16/21 07:59 Last Admin: 04/09/21 15:16 Dose: 1 tab Documented by: Aspirin (Aspirin 81 Mg Ectab) 81 mg PO DAILY [facility] Stop: 05/09/21 08:59 Last Admin: 04/09/21 15:16 Dose: 81 mg Documented by: Atorvastatin Calcium (Atorvastatin 40 Mg Tab) 40 mg PO QAM [facility] Stop: 05/09/21 08:59 Last Admin: 04/09/21 15:17 Dose: 40 mg Documented by: Benzonatate (Benzonatate 100 Mg Capsule) 100 mg PO TID PRN PRN Reason: Cough Stop: 05/08/21 23:38 Last Admin: 04/09/21 15:18 Dose: 100 mg Documented by: Docusate Sodium (Docusate Sodium 100 Mg Cap) 100 mg PO BID [facility] Stop: 05/08/21 20:59 Last Admin: 04/09/21 15:17 Dose: Not Given Documented by: Ferrous Sulfate (Ferrous Sulfate 325 Mg Tab) 325 mg PO BID [facility] Stop: 05/08/21 20:59 Last Admin: 04/09/21 15:16 Dose: 325 mg Documented by: Fish Oil ([place]-3 (Purified Fish Oil) 1 Gm Cap) 1 gm PO QAM [facility] Stop: 05/09/21 08:59 Last Admin: 04/09/21 15:17 Dose: Not Given Documented by: Guaifenesin (Guaifenesin 600 Mg Tabcr) 600 mg PO Q12 [facility] Stop: 05/08/21 20:59 Last Admin: 04/09/21 15:15 Dose: 600 mg Documented by: Promethazine HCl 6.25 mg/ (Sodium Chloride) 50.25 mls @ 201 mls/hr IV Q6H PRN PRN Reason: Nausea And Vomiting Stop: 05/08/21 15:12 Pantoprazole Sodium 40 mg/ (Syringe) 10 mls @ 5 mls/min IV BID [facility] Stop: 04/09/21 23:59 Last Admin: 04/09/21 15:15 Dose: 5 mls/min Documented by: Ipratropium [place] (Ipratropium [place] Neb Soln 0.02% 2.5 Ml Vial) 0.5 mg INH Q4H PRN PRN Reason: Shortness Of Breath Or Wheezing Stop: 05/08/21 23:44 Levalbuterol HCl (Levalbuterol 1.25mg/0.5ml Neb) 1.25 mg INH Q4H PRN PRN Reason: Shortness Of Breath Or Wheezing Stop: 05/08/21 23:44 Levothyroxine Sodium (Levothyroxine Sodium 50 Mcg Tablet) 50 mcg PO DAILYBB [facility] Stop: 05/09/21 06:29 Last Admin: 04/09/21 06:18 Dose: 50 mcg Documented by: Loratadine (Loratadine 10 Mg Tab) 10 mg PO QAM [facility] Stop: 05/09/21 08:59 Last Admin: 04/09/21 15:17 Dose: Not Given Documented by: Magnesium Hydroxide (Magnesium Hydroxide Susp 30 Ml Udc) 30 ml PO Q12H PRN PRN Reason: Constipation Stop: 05/08/21 15:12 Miscellaneous Information (Augmentin: Pharmacy Consult In Progress) 1 ea N/A UD PRN PRN Reason: Consult Stop: 05/09/21 03:38 Multivitamins (Multivitamin Tab) 1 tab PO QAM [facility] Stop: 05/09/21 08:59 Last Admin: 04/09/21 15:17 Dose: Not Given Documented by: Multivitamins/Minerals (Calcium 600mg + Vit D 400 Iu Tab) 1 tab PO QAM [facility] Stop: 05/09/21 08:59 Last Admin: 04/09/21 15:17 Dose: Not Given Documented by: Pantoprazole Sodium (Pantoprazole 40 Mg Tab) 40 mg PO BID [facility] Stop: 05/10/21 08:59 Polyethylene Glycol (Polyethylene (Miralax) 17 Gm Pack) 17 gm PO DAILY PRN PRN Reason: Constipation Stop: 05/08/21 15:12 (1) Anemia Anemia type: unspecified type Qualified Code(s): D64.9 - Anemia, unspecified
[2021-04-10] MEDS: LEVOTHYROXINE SODIUM 50 MCG TABLET PO SCH (06:23)
[2021-04-10 07:56] LABS: Basophils # (auto) 0.02 K/uL (0-0.2); Basophils % (auto) 0.2 %; Eosinophils # (auto) 0.12 K/uL (0-0.5); Eosinophils % (auto) 1.2 %; Hematocrit (blood only) 31.6 % (37-47); Hemoglobin 9.8 g/dL (12.0-16.0); Immature Granulocytes # (auto) 0.02 K/uL (0.00-0.02); Immature Granulocytes % (auto) 0.2 %; Lymphocytes # (auto) 1.31 K/uL (1.2-3.4); Lymphocytes % (auto) 13.5 %; Mean Corpuscular Hemoglobin 27.7 pg (25-34); Mean Corpuscular Volume 89.3 fL (80-100); Mean Platelet Volume 8.9 fL (7.4-10.4); Monocytes # (auto) 0.91 K/uL (0.11-0.59); Monocytes % (auto) 9.4 %; Neutrophils # (auto) 7.34 K/uL (1.4-6.5); Neutrophils % (auto) 75.5 %; Platelet Count 274 K/uL (130-400); RDW Coefficient of Variation 19.8 % (11.5-14.5); RDW Standard Deviation 65.9 fL (36.4-46.3); Red Blood Count 3.54 M/uL (4.2-5.4); White Blood Count 9.72 K/uL (4.8-10.8)
[2021-04-10] MEDS: ATORVASTATIN 40 MG TAB PO SCH (08:17)
[2021-04-10] MEDS: PANTOprazole 40 MG TAB PO SCH ×2 (08:17→20:27)
[2021-04-10] MEDS: LORATADINE 10 MG TAB PO SCH (08:17)
[2021-04-10] MEDS: CALCIUM 600MG + VIT D 400 IU TAB PO SCH (08:17)
[2021-04-10] MEDS: OMEGA-3 (PURIFIED FISH OIL) 1 GM CAP PO SCH (08:17)
[2021-04-10] MEDS: MULTIVITAMIN TAB PO SCH (08:17)
[2021-04-10] MEDS: AMOXICILLIN/CLAVULANATE 875 MG TAB PO SCH ×2 (08:17→16:41)
[2021-04-10] MEDS: DOCUSATE SODIUM 100 MG CAP PO SCH ×2 (08:17→20:26)
[2021-04-10] MEDS: guaiFENesin 600 MG TABCR PO SCH ×2 (08:17→20:27)
[2021-04-10] MEDS: ASPIRIN 81 MG ECTAB PO SCH (08:18)
[2021-04-10] MEDS: FERROUS SULFATE 325 MG TAB PO SCH ×2 (08:18→20:26)
[2021-04-10 08:30] LABS: BUN Creatinine Ratio 21.8 (10-20); Calcium 8.6 mg/dl (8.5-10.1); Creatinine Clr Calc Pharmacy 49.7 ml/min; Est GFR (African American) 72.1 ml/min; Est GFR (Non-African American) 62.2 ml/min; Magnesium 2.1 mg/dl (1.8-2.4); Potassium 3.8 mmol/L (3.5-5.1)
[2021-04-10 08:31] LABS: Phosphorus 2.4 mg/dl (2.5-4.9)
[2021-04-10] MEDS: MAGNESIUM SULFATE / D5W 1 GM/100 ML BAG IV SCH ×2 (08:45→11:12)
--- NOTE | 2021-04-10 13:03 | Communication Note ---
Date of Service: April 10, 2021 GI asked to re-evaluate pt to discuss PEG tube placement. History of aspiration and failed swallow study. After discussion, she wants to think about PEG tube placement over the weekend. Will ask that she is kept NPO Tuesday evening and can tentatively add EGD w/ PEG for Tuesday. Attg add: I interviewed pt, reviewed chart and labs. Swallow studies show silent aspiration, but suggest that some of this may be behavioral (impulsive swallows, thin liquids). It may be reasonable to repeat video swallow and continue speech therapy prior to PEG. However, upon discussion with + son, they report pt has tried speech therapy and has aspirated regardless -- they wish to proceed with PEG. Will plan on this next week. Please make pt NPO after tuesday at midnight.
--- NOTE | 2021-04-10 16:28 | Hospitalist Progress Note ---
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 She is also receiving monoferric as outpt; following heme/onc. Upper and Lower GI negative for bleed. 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 Appreciate GI input and recommendation Still having black tarry stool and the hemoglobin remains stable at 9.8 (3) Occult blood positive stool: Plan: Ongoing black tarry stool (4) Cough: Plan: Patient reports chronic cough due to silent aspiration as per video swallow study during her last admission Chest x-ray shows new right lung basilar opacity suggestive of atelectasis versus pneumonia Rhonchi noted on exam, afebrile and WBC 10.6k Obtain procalcitonin - which is normal - will hold off of antibiotics at this point continue muccinex, encourage incentive spirometry Has been getting Unasyn for aspiration pneumonia Symptomatically a little better-continue current antibiotic White count has been improving and no fever and/or chills (5) History of CVA (cerebrovascular accident): (6) CKD (chronic kidney disease) stage 3, GFR 30-59 ml/min: Plan: Creatinine remains normal (7) Benign hypertension: Plan: Not been taking any medicine for blood pressure control Will not start any medicine as of yet (8) Aspiration into airway: Plan: Dysphagia/Aspiration She is been seen and evaluated by speech therapy as well as underwent video of fluoroscopy She has no evidence of aspiration even with thickened liquids Current recommendation is for minced and moist diet, thin liquids with aspiration precautions Very high risk of aspiration Prior video swallow did show silent aspiration Appreciate speech therapy input and recommendation during this time Remains high risk for aspiration which needs to be discussed with the patient and the family members for further appropriate measures from here Has been put on Unasyn for possible aspiration pneumonia Discussed with the patient and the family members about the ongoing problem with aspiration during swallowing even with recommended diet from speech therapist The patient agreed to go ahead and have the PEG tube placement for continued nutritional support Palliative care has been consulted for further goals of care and GI is already on board for possible PEG tube placement on Tuesday (9) Dysphagia: Plan: As above Plan: This is a 70-year-old female who has significant past medical history of HTN, HLD, hypothyroidism, CVA, 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 Weakness Iron Def Anemia Occult blood in stool chronic H&H actually improved to 10.2 and 32.7 Monitor H&H every 8 Type and screen, blood consent obtained Consult GI, patient has scheduled procedure with Dr. Gaston on 05/[address] on IV PPI BID consult gastroenterology Hx of CVA Most recently during admission in December, infarct of left caudate No residual deficits, no current focal deficit CT head unchanged Continue aspirin for now, previously had been on aspirin and Plavix but this was DC'd secondary to GI bleeding Ambulatory Dysfunction consult PT/OT HTN bp elevated 141/73 not on any antihypertensives monitor HLD continue statin Hypothyroidism continue levothyroxine DVT ppx: SCD/TEDS 2/ to recurrent GIB Dispo: med tele PCP: Vivienne Pendleton FULL CODE Admission and Anticipated Discharge Date Admission Date: April 08, 2021 Subjective 04/09/2021 The patient was seen and examined in medical telemetry unit She complains to a cough with whitish-yellow phlegm She denies any abdominal pain, nausea and or vomiting and her bowel has not moved yet She remains generally very weak and lethargic 04/10/2021 The patient was seen and examined in medical telemetry unit She has been tolerating oral sips and taking her medications orally Has cough with greenish-yellow phlegm and with minimal shortness of breath at rest Remains generally weak and lethargic Review of Systems Review of Systems: All systems reviewed and are unremarkable except as noted below Constitutional: + fatigue and + malaise Respiratory: Minimal shortness of breath at rest with cough and productive of greenish-yellow phlegm Gastrointestinal: Denies any abdominal pain, nausea and or vomiting Physical Exam Physical Exam: Sitting on a chair with minimal shortness of breath Constitutional: + ill appearing and + thin Eyes: PERRL, conjunctivae normal, anicteric sclerae ENMT: external ear and nose normal, oropharynx normal Neck: trachea midline, no thyromegaly Respiratory: + cough Auscultation: + diminished lung sounds and + crackles (At the bases) Cardiovascular: Rate/Rhythm: regular rate and regular rhythm; not tachycardic Heart Sounds: normal S1 and normal S2; no murmur Extremities: no edema Gastrointestinal (Abdomen): Inspection/Auscultation: normal bowel sounds; abdomen not distended Musculoskeletal: No acute arthritis in any joint Neurologic: Alert and awake. Generally very weak and lethargic Results & Data Results & Data ([facility]) Vital Signs (Past 12 Hours) Vital Signs Temp Pulse Pulse Resp BP Pulse Ox 04/10/21 15:33 37.2 C 82 16 144/78 H 95 04/10/21 11:53 92 04/10/21 11:17 36.9 C 83 20 128/75 97 04/10/21 08:00 87 04/10/21 07:34 36.7 C 76 16 133/74 92 Laboratory Results Short CBC 04/10/21 Range/Units 07:19 WBC 9.72 (4.8-10.8) K/uL Hgb 9.8 L (12.0-16.0) g/dL Hct 31.6 L (37-47) % Plt Count 274 (130-400) K/uL BMP 04/10/21 07:19 Sodium 141 Potassium 3.8 Chloride 109 H Carbon Dioxide 28 BUN 20 H Creatinine 0.92 Glucose 91 Calcium 8.6 Medications Administered Current Inpatient Medications Acetaminophen (Acetaminophen 325 Mg Tab) 650 mg PO Q4H PRN PRN Reason: Pain or Fever Stop: 05/08/21 15:12 Al Hydrox/Mg Hydrox/Simethicone (Aluminum/Magnesium Susp 30 Ml Udc) 15 ml PO Q4H PRN PRN Reason: Dyspepsia Stop: 05/08/21 15:12 Amoxicillin/Clavulanate Potassium (Amoxicillin/Clavulanate 875 Mg Tab) 1 tab PO BIDM [facility]; Protocol Stop: 04/16/21 07:59 Last Admin: 04/10/21 08:17 Dose: 1 tab Documented by: Aspirin (Aspirin 81 Mg Ectab) 81 mg PO DAILY [facility] Stop: 05/09/21 08:59 Last Admin: 04/10/21 08:18 Dose: 81 mg Documented by: Atorvastatin Calcium (Atorvastatin 40 Mg Tab) 40 mg PO QAM [facility] Stop: 05/09/21 08:59 Last Admin: 04/10/21 08:17 Dose: 40 mg Documented by: Benzonatate (Benzonatate 100 Mg Capsule) 100 mg PO TID PRN PRN Reason: Cough Stop: 05/08/21 23:38 Last Admin: 04/09/21 15:18 Dose: 100 mg Documented by: Docusate Sodium (Docusate Sodium 100 Mg Cap) 100 mg PO BID [facility] Stop: 05/08/21 20:59 Last Admin: 04/10/21 08:17 Dose: 100 mg Documented by: Ferrous Sulfate (Ferrous Sulfate 325 Mg Tab) 325 mg PO BID [facility] Stop: 05/08/21 20:59 Last Admin: 04/10/21 08:18 Dose: 325 mg Documented by: Fish Oil ([place]-3 (Purified Fish Oil) 1 Gm Cap) 1 gm PO QAM [facility] Stop: 05/09/21 08:59 Last Admin: 04/10/21 08:17 Dose: 1 gm Documented by: Guaifenesin (Guaifenesin 600 Mg Tabcr) 600 mg PO Q12 [facility] Stop: 05/08/21 20:59 Last Admin: 04/10/21 08:17 Dose: 600 mg Documented by: Promethazine HCl 6.25 mg/ (Sodium Chloride) 50.25 mls @ 201 mls/hr IV Q6H PRN PRN Reason: Nausea And Vomiting Stop: 05/08/21 15:12 Ipratropium [place] (Ipratropium [place] Neb Soln 0.02% 2.5 Ml Vial) 0.5 mg INH Q4H PRN PRN Reason: Shortness Of Breath Or Wheezing Stop: 05/08/21 23:44 Levalbuterol HCl (Levalbuterol 1.25mg/0.5ml Neb) 1.25 mg INH Q4H PRN PRN Reason: Shortness Of Breath Or Wheezing Stop: 05/08/21 23:44 Levothyroxine Sodium (Levothyroxine Sodium 50 Mcg Tablet) 50 mcg PO DAILYBB [facility] Stop: 05/09/21 06:29 Last Admin: 04/10/21 06:23 Dose: 50 mcg Documented by: Loratadine (Loratadine 10 Mg Tab) 10 mg PO QAM [facility] Stop: 05/09/21 08:59 Last Admin: 04/10/21 08:17 Dose: 10 mg Documented by: Magnesium Hydroxide (Magnesium Hydroxide Susp 30 Ml Udc) 30 ml PO Q12H PRN PRN Reason: Constipation Stop: 05/08/21 15:12 Miscellaneous Information (Augmentin: Pharmacy Consult In Progress) 1 ea N/A UD PRN PRN Reason: Consult Stop: 05/09/21 03:38 Multivitamins (Multivitamin Tab) 1 tab PO QAM [facility] Stop: 05/09/21 08:59 Last Admin: 04/10/21 08:17 Dose: 1 tab Documented by: Multivitamins/Minerals (Calcium 600mg + Vit D 400 Iu Tab) 1 tab PO QAM [facility] Stop: 05/09/21 08:59 Last Admin: 04/10/21 08:17 Dose: 1 tab Documented by: Pantoprazole Sodium (Pantoprazole 40 Mg Tab) 40 mg PO BID [facility] Stop: 05/10/21 08:59 Last Admin: 04/10/21 08:17 Dose: 40 mg Documented by: Polyethylene Glycol (Polyethylene (Miralax) 17 Gm Pack) 17 gm PO DAILY PRN PRN Reason: Constipation Stop: 05/08/21 15:12 (1) Anemia Anemia type: unspecified type Qualified Code(s): D64.9 - Anemia, unspecified
[2021-04-11] MEDS: LEVOTHYROXINE SODIUM 50 MCG TABLET PO SCH (06:17)
[2021-04-11 06:50] LABS: Basophils # (auto) 0.01 K/uL (0-0.2); Basophils % (auto) 0.1 %; Eosinophils # (auto) 0.15 K/uL (0-0.5); Eosinophils % (auto) 2.2 %; Hematocrit (blood only) 31.5 % (37-47); Hemoglobin 9.9 g/dL (12.0-16.0); Immature Granulocytes # (auto) 0.02 K/uL (0.00-0.02); Immature Granulocytes % (auto) 0.3 %; Lymphocytes # (auto) 1.17 K/uL (1.2-3.4); Lymphocytes % (auto) 16.8 %; Mean Corpuscular Hgb Conc 31.4 g/dL (32-36); Mean Corpuscular Volume 89.2 fL (80-100); Mean Platelet Volume 8.2 fL (7.4-10.4); Monocytes # (auto) 0.65 K/uL (0.11-0.59); Monocytes % (auto) 9.3 %; Neutrophils # (auto) 4.96 K/uL (1.4-6.5); Neutrophils % (auto) 71.3 %; Platelet Count 254 K/uL (130-400); RDW Coefficient of Variation 19.6 % (11.5-14.5); RDW Standard Deviation 63.8 fL (36.4-46.3); Red Blood Count 3.53 M/uL (4.2-5.4); White Blood Count 6.96 K/uL (4.8-10.8)
[2021-04-11 07:20] LABS: BUN Creatinine Ratio 19.5 (10-20); Calcium 8.8 mg/dl (8.5-10.1); Creatinine Clr Calc Pharmacy 47.7 ml/min; Est GFR (African American) 72.1 ml/min; Est GFR (Non-African American) 62.2 ml/min; Potassium 3.8 mmol/L (3.5-5.1)
[2021-04-11] MEDS: FERROUS SULFATE 325 MG TAB PO SCH ×2 (08:39→20:47)
[2021-04-11] MEDS: PANTOprazole 40 MG TAB PO SCH ×2 (08:39→20:46)
[2021-04-11] MEDS: ATORVASTATIN 40 MG TAB PO SCH (08:40)
[2021-04-11] MEDS: LORATADINE 10 MG TAB PO SCH (08:40)
[2021-04-11] MEDS: OMEGA-3 (PURIFIED FISH OIL) 1 GM CAP PO SCH (08:40)
[2021-04-11] MEDS: AMOXICILLIN/CLAVULANATE 875 MG TAB PO SCH ×2 (08:40→18:20)
[2021-04-11] MEDS: guaiFENesin 600 MG TABCR PO SCH ×2 (08:40→20:46)
[2021-04-11] MEDS: MULTIVITAMIN TAB PO SCH (08:40)
[2021-04-11] MEDS: DOCUSATE SODIUM 100 MG CAP PO SCH ×2 (08:40→20:45)
[2021-04-11] MEDS: CALCIUM 600MG + VIT D 400 IU TAB PO SCH (08:40)
[2021-04-11] MEDS: ASPIRIN 81 MG ECTAB PO SCH (08:40)
--- NOTE | 2021-04-11 15:20 | Hospitalist Progress Note ---
Date of Service April 11, 2021 Assessment & Plan (1) Weakness: Plan: Generalized weakness-multifactorial etiology. PT/OT to assess. (2) Aspiration pneumonia: Plan: Patient with recent evaluation by speech revealing high risk for aspiration. She has a new right lung base opacity and presented with a white blood cell count of 17 K. Pro-Tobias 20 was negative. Started on Unasyn for presumed aspir ation pneumonia. She has been transitioned to Augmentin. She was seen by speech who recommended aspiration precautions and diet modifications. Diet was ordered today. There are plans for PEG tube placement on Tuesday for nutritional support. GI is following. Will discuss plans further with family. Palliative care involved in conversation. 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 Followed by Heme/Onc Upper and Lower GI negative for bleed. +FOBT in ED. Appreciate GI input and recommendation Remains hemodynamically stable. (4) CKD (chronic kidney disease) stage 3, GFR 30-59 ml/min: Plan: renal function at baseline. (5) History of CVA (cerebrovascular accident): Plan: cont ASA/statin for secondary prohylaxis. Plavix was discontinued recently 2/2 GI bleeding. (6) DVT prophylaxis: Plan: SCds/ambulation Full Code Dispo-uncertain at this time. Adelia Mccoy DO [facility] Hospitalist Admission and Anticipated Discharge Date Admission Date: April 08, 2021 Subjective 70-year-old female with chronic GI blood loss secondary to AVMs in small bowel presents with weakness. New cough and dysphagia with aspiration risk present. Per speech recommendations on 04/09 minced and moist diet with thin liquids and aspiration precautions should be observed. Reviewed this with primary nurse today and diet was started. Review of systems reveals no pain and the patient is fixated on being stuck with needles for various reasons including blood draws here at the hospital. She reports that she does not like it but that is understanding of why these sticks need to be done. A friend of hers is at the bedside and she went on to discuss her friendship with her friend. She did not appear aware of the issues surrounding her admission-she appeared confused. When asked about her weakness and if this has improved, she did not give a clear answer. She went on to say that what ever her wanted to do she would be supportive of as he had to take care of her. Review of Systems Review of Systems: All systems were reviewed and negative except as indicated in HPI above. Physical Exam Physical Exam: CONSTITUTIONAL: WNWD, vitals as above, NAD EYES: normal conjunctivae, no scleral icterus ENT: external ear and nose normal, MMM RESPIRATORY: clear to auscultation bilaterally, no crackles, rales or wheezes, normal respiratory effort CARDIOVASCULAR: regular rate and rhythm, S1 and 2 heard without murmurs, gallops or rubs, no JVD, no peripheral edema GASTROINTESTINAL: soft, nontender, nondistended, no guarding. MUSCULOSKELETAL: strength 5/5 throughout, head is normocephalic and atraumatic SKIN: warm and dry NEUROLOGIC: No facial palsy, no dysarthria. CN 2-12 grossly intact, no sensory deficit, normal cognition, normal speech, no tremor PSYCHIATRIC: alert and cooperative, appears to stray in her answers away from the questions asked of her. ?confusion. Follows instructions well. Results & Data Results & Data ([facility]) Vital Signs (Past 12 Hours) Vital Signs Temp Pulse Resp BP BP Pulse Ox 04/11/21 11:51 36.5 C 76 20 123/74 94 04/11/21 07:15 36.7 C 75 20 115/71 92 04/11/21 04:11 36.6 C 73 20 133/79 94 Laboratory Results Short CBC 04/11/21 Range/Units 06:41 WBC 6.96 (4.8-10.8) K/uL Hgb 9.9 L (12.0-16.0) g/dL Hct 31.5 L (37-47) % Plt Count 254 (130-400) K/uL BMP 04/11/21 06:41 Sodium 141 Potassium 3.8 Chloride 108 H Carbon Dioxide 28 BUN 18 Creatinine 0.92 Glucose 79 Calcium 8.8 Medications Administered Current Inpatient Medications Acetaminophen (Acetaminophen 325 Mg Tab) 650 mg PO Q4H PRN PRN Reason: Pain or Fever Stop: 05/08/21 15:12 Al Hydrox/Mg Hydrox/Simethicone (Aluminum/Magnesium Susp 30 Ml Udc) 15 ml PO Q4H PRN PRN Reason: Dyspepsia Stop: 05/08/21 15:12 Amoxicillin/Clavulanate Potassium (Amoxicillin/Clavulanate 875 Mg Tab) 1 tab PO BIDM [facility]; Protocol Stop: 04/16/21 07:59 Last Admin: 04/11/21 08:40 Dose: 1 tab Documented by: Aspirin (Aspirin 81 Mg Ectab) 81 mg PO DAILY [facility] Stop: 05/09/21 08:59 Last Admin: 04/11/21 08:40 Dose: 81 mg Documented by: Atorvastatin Calcium (Atorvastatin 40 Mg Tab) 40 mg PO QAM [facility] Stop: 05/09/21 08:59 Last Admin: 04/11/21 08:40 Dose: 40 mg Documented by: Benzonatate (Benzonatate 100 Mg Capsule) 100 mg PO TID PRN PRN Reason: Cough Stop: 05/08/21 23:38 Last Admin: 04/09/21 15:18 Dose: 100 mg Documented by: Docusate Sodium (Docusate Sodium 100 Mg Cap) 100 mg PO BID [facility] Stop: 05/08/21 20:59 Last Admin: 04/11/21 08:40 Dose: 100 mg Documented by: Ferrous Sulfate (Ferrous Sulfate 325 Mg Tab) 325 mg PO BID [facility] Stop: 05/08/21 20:59 Last Admin: 04/11/21 08:39 Dose: 325 mg Documented by: Fish Oil ([place]-3 (Purified Fish Oil) 1 Gm Cap) [facility] [place] Stop: 05/09/21 08:59 Last Admin: 04/11/21 08:40 Dose: 1 gm Documented by: Guaifenesin (Guaifenesin 600 Mg Tabcr) 600 mg PO Q12 [facility] Stop: 05/08/21 20:59 Last Admin: 04/11/21 08:40 Dose: 600 mg Documented by: Promethazine HCl 6.25 mg/ (Sodium Chloride) 50.25 mls @ 201 mls/hr IV Q6H PRN PRN Reason: Nausea And Vomiting Stop: 05/08/21 15:12 Ipratropium [place] (Ipratropium [place] Neb Soln 0.02% 2.5 Ml Vial) 0.5 mg INH Q4H PRN PRN Reason: Shortness Of Breath Or Wheezing Stop: 05/08/21 23:44 Levalbuterol HCl (Levalbuterol 1.25mg/0.5ml Neb) 1.25 mg INH Q4H PRN PRN Reason: Shortness Of Breath Or Wheezing Stop: 05/08/21 23:44 Levothyroxine Sodium (Levothyroxine Sodium 50 Mcg Tablet) 50 mcg PO DAILYBB [facility] Stop: 05/09/21 06:29 Last Admin: 04/11/21 06:17 Dose: 50 mcg Documented by: Loratadine (Loratadine 10 Mg Tab) 10 mg PO QAM [facility] Stop: 05/09/21 08:59 Last Admin: 04/11/21 08:40 Dose: 10 mg Documented by: Magnesium Hydroxide (Magnesium Hydroxide Susp 30 Ml Udc) 30 ml PO Q12H PRN PRN Reason: Constipation Stop: 05/08/21 15:12 Miscellaneous Information (Augmentin: Pharmacy Consult In Progress) 1 ea N/A UD PRN PRN Reason: Consult Stop: 05/09/21 03:38 Multivitamins (Multivitamin Tab) 1 tab PO QAM [facility] Stop: 05/09/21 08:59 Last Admin: 04/11/21 08:40 Dose: 1 tab Documented by: Multivitamins/Minerals (Calcium 600mg + Vit D 400 Iu Tab) 1 tab PO QAM [facility] Stop: 05/09/21 08:59 Last Admin: 04/11/21 08:40 Dose: 1 tab Documented by: Pantoprazole Sodium (Pantoprazole 40 Mg Tab) 40 mg PO BID [facility] Stop: 05/10/21 08:59 Last Admin: 04/11/21 08:39 Dose: 40 mg Documented by: Polyethylene Glycol (Polyethylene (Miralax) 17 Gm Pack) 17 gm PO DAILY PRN PRN Reason: Constipation Stop: 05/08/21 15:12
[2021-04-12] MEDS: BENZONATATE 100 MG CAPSULE PO PRN ×2 (03:51→21:29)
[2021-04-12] MEDS: LEVOTHYROXINE SODIUM 50 MCG TABLET PO SCH (06:04)
[2021-04-12] MEDS: guaiFENesin 600 MG TABCR PO SCH ×2 (07:56→21:30)
[2021-04-12] MEDS: ASPIRIN 81 MG ECTAB PO SCH (07:56)
[2021-04-12] MEDS: FERROUS SULFATE 325 MG TAB PO SCH ×2 (07:56→21:29)
[2021-04-12] MEDS: MULTIVITAMIN TAB PO SCH (07:57)
[2021-04-12] MEDS: CALCIUM 600MG + VIT D 400 IU TAB PO SCH (07:57)
[2021-04-12] MEDS: LORATADINE 10 MG TAB PO SCH (07:57)
[2021-04-12] MEDS: PANTOprazole 40 MG TAB PO SCH ×2 (07:57→21:31)
[2021-04-12] MEDS: AMOXICILLIN/CLAVULANATE 875 MG TAB PO SCH ×2 (07:57→18:03)
[2021-04-12] MEDS: ATORVASTATIN 40 MG TAB PO SCH (07:57)
[2021-04-12] MEDS: OMEGA-3 (PURIFIED FISH OIL) 1 GM CAP PO SCH (07:57)
[2021-04-12] MEDS: DOCUSATE SODIUM 100 MG CAP PO SCH ×2 (07:57→21:29)
[2021-04-12 08:06] LABS: Hematocrit (blood only) 32.2 % (37-47); Hemoglobin 10.2 g/dL (12.0-16.0); Mean Corpuscular Hemoglobin 28.3 pg (25-34); Mean Corpuscular Hgb Conc 31.7 g/dL (32-36); Mean Corpuscular Volume 89.2 fL (80-100); Mean Platelet Volume 8.4 fL (7.4-10.4); Platelet Count 292 K/uL (130-400); RDW Coefficient of Variation 18.8 % (11.5-14.5); Red Blood Count 3.61 M/uL (4.2-5.4); White Blood Count 6.12 K/uL (4.8-10.8)
[2021-04-12 08:28] LABS: BUN Creatinine Ratio 23.8 (10-20); Creatinine Clr Calc Pharmacy 46.3 ml/min; Est GFR (African American) 67.6 ml/min; Est GFR (Non-African American) 58.3 ml/min; Magnesium 2.1 mg/dl (1.8-2.4); Potassium 4.1 mmol/L (3.5-5.1)
[2021-04-12 08:41] LABS: Phosphorus 3.2 mg/dl (2.5-4.9)
--- NOTE | 2021-04-12 09:14 | Hospitalist Progress Note ---
Date of Service April 12, 2021 Assessment & Plan (1) Weakness: Plan: Generalized weakness-multifactorial etiology. PT recommends inpatient rehab, however, after speaking with her son, that would not be the family's preference. Patient and her live with their son and his family who are currently helping to care for the patient. They are comfortable with providing home health for PT, OT and continuing home speech therapy efforts. At this time, she is doing well on the modified diet and the family is opting to hold on the PEG tube-will communicate this to the GI provider. From a standpoint of weakness, she also does have chronic blood loss anemia contributing and there is a definitive surgical treatment planned in early Apr to fix this issue. She is continuing to remain in bed while here, and further deconditioning is inevitable. Will plan to DC her home tomorrow with Home Health in place. (2) Aspiration pneumonia: Plan: Patient with recent evaluation by speech revealing high risk for aspiration. She has a new right lung base opacity and presented with a white blood cell count of 17 K. Pro-Tobias 20 was negative. Started on Unasyn for presumed aspiration pneumonia. She has been transitioned to Augmentin. Still on 2LPM via [place], however, will try to wean as tolerated. Movement and incentive spirometry encouraged. She appears to be doing well on the current modified diet. 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 Followed by Heme/Onc Upper and Lower GI negative for bleed. +FOBT in ED. Appreciate GI input and recommendation Remains hemodynamically stable with Hb today better than it has been in last 6 months. Definitive surgery is planned in early Apr. (4) CKD (chronic kidney disease) stage 3, GFR 30-59 ml/min: Plan: renal function at baseline. (5) History of CVA (cerebrovascular accident): Plan: cont ASA/statin for secondary prohylaxis. Plavix was discontinued recently 2/2 GI bleeding. (6) DVT prophylaxis: Plan: SCds/ambulation Full Code Dispo-spoke with son by phone for 20 minutes this morning reviewing entire care plan and goals. Family opting to avoid PEG at this time and continue with home health for PT, OT and continued speech therapy services with modified diet and strict aspiration precautions. Son is aware of her higher aspiration risk since her stroke and is comfortable giving this a try prior to PEG placement. Prefers to avoid inpatient rehab. PT/OT to update evaluation and recommendations since 04/09. Will ask case management for help [facility] setting up Home Health and plan for DC in am when services are set up and in place. 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 Tolerating yogurt and her peaches this morning-she is concerned that the peaches are more firm than the peaches that she has at home. Although she states there was a large strawberry in her yogurt, she was able to chew this up and swallow it without issues. She denies any coughing or choking with eating. Appears more oriented today-less distracted without visitors? She is aware of why she is here and feels that she is stronger. Denies any blood per rectum or nausea/vomiting. I spoke with son by phone extensively about care plan-see notes below. Review of Systems Review of Systems: All systems were reviewed and negative except as indicated in HPI above. Physical Exam Physical Exam: CONSTITUTIONAL: WNWD, vitals as above, NAD EYES: normal conjunctivae, no scleral icterus ENT: external ear and nose normal, MMM RESPIRATORY: clear to auscultation bilaterally, no crackles, rales or wheezes, normal respiratory effort CARDIOVASCULAR: regular rate and rhythm, S1 and 2 heard without murmurs, gallops or rubs, no JVD, no peripheral edema GASTROINTESTINAL: soft, nontender, nondistended, no guarding. MUSCULOSKELETAL: although strength is intact and she is moving extremities symmetrically she is generally weak, head is normocephalic and atraumatic SKIN: warm and dry NEUROLOGIC: No facial palsy, no dysarthria. CN 2-12 grossly intact, no sensory deficit, normal cognition, normal speech, no tremor PSYCHIATRIC: alert and cooperative, appears to stray in her answers away from the questions asked of her. ?confusion. Follows instructions well. Results & Data Results & Data ([facility]) Vital Signs (Past 12 Hours) Vital Signs Temp Pulse Pulse Resp BP Pulse Ox 04/12/21 07:36 61 04/12/21 07:23 36.8 C 69 20 123/67 95 04/12/21 03:25 36.5 C 67 20 121/79 98 04/11/21 23:22 36.5 C 64 20 131/80 98 04/11/21 22:20 70 Laboratory Results Short CBC 04/12/21 Range/Units 07:48 WBC 6.12 (4.8-10.8) K/uL Hgb 10.2 L (12.0-16.0) g/dL Hct 32.2 L (37-47) % Plt Count 292 (130-400) K/uL BMP 04/12/21 07:48 Sodium 140 Potassium 4.1 Chloride 107 Carbon Dioxide 28 BUN 23 H Creatinine 0.97 Glucose 72 Calcium 9.0 Medications Administered Current Inpatient Medications Acetaminophen (Acetaminophen 325 Mg Tab) 650 mg PO Q4H PRN PRN Reason: Pain or Fever Stop: 05/08/21 15:12 Al Hydrox/Mg Hydrox/Simethicone (Aluminum/Magnesium Susp 30 Ml Udc) 15 ml PO Q4H PRN PRN Reason: Dyspepsia Stop: 05/08/21 15:12 Amoxicillin/Clavulanate Potassium (Amoxicillin/Clavulanate 875 Mg Tab) 1 tab PO BIDM [facility]; Protocol Stop: 04/16/21 07:59 Last Admin: 04/12/21 07:57 Dose: 1 tab Documented by: Aspirin (Aspirin 81 Mg Ectab) 81 mg PO DAILY [facility] Stop: 05/09/21 08:59 Last Admin: 04/12/21 07:56 Dose: 81 mg Documented by: Atorvastatin Calcium (Atorvastatin 40 Mg Tab) 40 mg PO QAM [facility] Stop: 05/09/21 08:59 Last Admin: 04/12/21 07:57 Dose: 40 mg Documented by: Benzonatate (Benzonatate 100 Mg Capsule) 100 mg PO TID PRN PRN Reason: Cough Stop: 05/08/21 23:38 Last Admin: 04/12/21 03:51 Dose: 100 mg Documented by: Docusate Sodium (Docusate Sodium 100 Mg Cap) 100 mg PO BID [facility] Stop: 05/08/21 20:59 Last Admin: 04/12/21 07:57 Dose: 100 mg Documented by: Ferrous Sulfate (Ferrous Sulfate 325 Mg Tab) 325 mg PO BID [facility] Stop: 05/08/21 20:59 Last Admin: 04/12/21 07:56 Dose: 325 mg Documented by: Fish Oil ([place]-3 (Purified Fish Oil) 1 Gm Cap) 1 gm PO QAM [facility] Stop: 05/09/21 08:59 Last Admin: 04/12/21 07:57 Dose: 1 gm Documented by: Guaifenesin (Guaifenesin 600 Mg Tabcr) 600 mg PO Q12 [facility] Stop: 05/08/21 20:59 Last Admin: 04/12/21 07:56 Dose: 600 mg Documented by: Promethazine HCl 6.25 mg/ (Sodium Chloride) 50.25 mls @ 201 mls/hr IV Q6H PRN PRN Reason: Nausea And Vomiting Stop: 05/08/21 15:12 Ipratropium [place] (Ipratropium [place] Neb Soln 0.02% 2.5 Ml Vial) 0.5 mg INH Q4H PRN PRN Reason: Shortness Of Breath Or Wheezing Stop: 05/08/21 23:44 Levalbuterol HCl (Levalbuterol 1.25mg/0.5ml Neb) 1.25 mg INH Q4H PRN PRN Reason: Shortness Of Breath Or Wheezing Stop: 05/08/21 23:44 Levothyroxine Sodium (Levothyroxine Sodium 50 Mcg Tablet) 50 mcg PO DAILYBB [facility] Stop: 05/09/21 06:29 Last Admin: 04/12/21 06:04 Dose: 50 mcg Documented by: Loratadine (Loratadine 10 Mg Tab) 10 mg PO QAM [facility] Stop: 05/09/21 08:59 Last Admin: 04/12/21 07:57 Dose: 10 mg Documented by: Magnesium Hydroxide (Magnesium Hydroxide Susp 30 Ml Udc) 30 ml PO Q12H PRN PRN Reason: Constipation Stop: 05/08/21 15:12 Miscellaneous Information (Augmentin: Pharmacy Consult In Progress) 1 ea N/A UD PRN PRN Reason: Consult Stop: 05/09/21 03:38 Multivitamins (Multivitamin Tab) 1 tab PO QAM [facility] Stop: 05/09/21 08:59 Last Admin: 04/12/21 07:57 Dose: 1 tab Documented by: Multivitamins/Minerals (Calcium 600mg + Vit D 400 Iu Tab) 1 tab PO QAM [facility] Stop: 05/09/21 08:59 Last Admin: 04/12/21 07:57 Dose: 1 tab Documented by: Pantoprazole Sodium (Pantoprazole 40 Mg Tab) 40 mg PO BID [facility] Stop: 05/10/21 08:59 Last Admin: 04/12/21 07:57 Dose: 40 mg Documented by: Polyethylene Glycol (Polyethylene (Miralax) 17 Gm Pack) 17 gm PO DAILY PRN PRN Reason: Constipation Stop: 05/08/21 15:12
[2021-04-13] MEDS: LEVOTHYROXINE SODIUM 50 MCG TABLET PO SCH (05:42)
[2021-04-13] MEDS: AMOXICILLIN/CLAVULANATE 875 MG TAB PO SCH ×2 (09:30→17:22)
[2021-04-13] MEDS: CALCIUM 600MG + VIT D 400 IU TAB PO SCH (09:30)
[2021-04-13] MEDS: ASPIRIN 81 MG ECTAB PO SCH (09:31)
[2021-04-13] MEDS: OMEGA-3 (PURIFIED FISH OIL) 1 GM CAP PO SCH (09:32)
[2021-04-13] MEDS: ATORVASTATIN 40 MG TAB PO SCH (09:32)
[2021-04-13] MEDS: PANTOprazole 40 MG TAB PO SCH (09:32)
[2021-04-13] MEDS: DOCUSATE SODIUM 100 MG CAP PO SCH (09:33)
[2021-04-13] MEDS: LORATADINE 10 MG TAB PO SCH (09:33)
[2021-04-13] MEDS: guaiFENesin 600 MG TABCR PO SCH (09:34)
[2021-04-13] MEDS: MULTIVITAMIN TAB PO SCH (09:35)
--- NOTE | 2021-04-13 10:29 | Hospitalist Progress Note ---
Date of Service April 13, 2021 Assessment & Plan (1) Weakness: Plan: Generalized weakness-multifactorial etiology. PT recommends inpatient rehab, however, after speaking with her son, that would not be the family's preference. Patient and her live with their son and his family who are currently helping to care for the patient. They are comfortable with providing home health for PT, OT and continuing home speech therapy efforts. At this time, she is doing well on the modified diet and the family is opting to hold on the PEG tube-will communicate this to the GI provider. From a standpoint of weakness, she also does have chronic blood loss anemia contributing and there is a definitive surgical treatment planned in early Apr to fix this issue. She is continuing to remain in bed while here, and further deconditioning is inevitable. Will plan to DC her home tomorrow with Home Health in place. (2) Aspiration pneumonia: Plan: Patient with recent evaluation by speech revealing high risk for aspiration. She has a new right lung base opacity and presented with a white blood cell count of 17 K. Pro-Tobias 20 was negative. Started on Unasyn for presumed aspiration pneumonia. She has been transitioned to Augmentin. Still on 2LPM via [place], however, will try to wean as tolerated. Movement and incentive spirometry encouraged. She appears to be doing well on the current modified diet. 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 Followed by Heme/Onc Upper and Lower GI negative for bleed. +FOBT in ED. Appreciate GI input and recommendation Remains hemodynamically stable with Hb today better than it has been in last 6 months. Definitive surgery is planned in early Apr. (4) CKD (chronic kidney disease) stage 3, GFR 30-59 ml/min: Plan: renal function at baseline. (5) History of CVA (cerebrovascular accident): Plan: cont ASA/statin for secondary prohylaxis. Plavix was discontinued recently 2/2 GI bleeding. (6) DVT prophylaxis: Plan: SCds/ambulation Full Code Dispo-spoke with son by phone for 20 minutes this morning reviewing entire care plan and goals. Family opting to avoid PEG at this time and continue with home health for PT, OT and continued speech therapy services with modified diet and strict aspiration precautions. Son is aware of her higher aspiration risk since her stroke and is comfortable giving this a try prior to PEG placement. Prefers to avoid inpatient rehab. PT/OT to update evaluation and recommendations since 04/09. Will ask case management for help [facility] setting up Home Health and plan for DC in am when services are set up and in place. Adelia Mccoy DO [facility]ist Admission and Anticipated Discharge Date Admission Date: April 08, 2021 Subjective 70-year-old female with chronic GI blood loss secondary to AVMs in small bowel presents with weakness. Tolerating yogurt and her peaches this morning-she is concerned that the peaches are more firm than the peaches that she has at home. Although she states there was a large strawberry in her yogurt, she was able to chew this up and swallow it without issues. She denies any coughing or choking with eating. Appears more oriented today-less distracted without visitors? She is aware of why she is here and feels that she is stronger. Denies any blood per rectum or nausea/vomiting. I spoke with son by phone extensively about care plan-see notes below. Physical Exam Physical Exam: CONSTITUTIONAL: WNWD, vitals as above, NAD EYES: normal conjunctivae, no scleral icterus ENT: external ear and nose normal, MMM RESPIRATORY: clear to auscultation bilaterally, no crackles, rales or wheezes, normal respiratory effort CARDIOVASCULAR: regular rate and rhythm, S1 and 2 heard without murmurs, gallops or rubs, no JVD, no peripheral edema GASTROINTESTINAL: soft, nontender, nondistended, no guarding. MUSCULOSKELETAL: although strength is intact and she is moving extremities symmetrically she is generally weak, head is normocephalic and atraumatic SKIN: warm and dry NEUROLOGIC: No facial palsy, no dysarthria. CN 2-12 grossly intact, no sensory deficit, normal cognition, normal speech, no tremor PSYCHIATRIC: alert and cooperative, appears to stray in her answers away from the questions asked of her. ?confusion. Follows instructions well. Results & Data Results & Data ([facility]) Vital Signs (Past 12 Hours) Vital Signs Temp Pulse Resp BP BP Pulse Ox 04/13/21 07:22 36.6 C 68 20 120/73 95 04/13/21 03:02 36.7 C 72 18 122/74 92 04/12/21 23:06 36.6 C 77 20 125/80 92 Medications Administered Current Inpatient Medications Acetaminophen (Acetaminophen 325 Mg Tab) 650 mg PO Q4H PRN PRN Reason: Pain or Fever Stop: 05/08/21 15:12 Al Hydrox/Mg Hydrox/Simethicone (Aluminum/Magnesium Susp 30 Ml Udc) 15 ml PO Q4H PRN PRN Reason: Dyspepsia Stop: 05/08/21 15:12 Amoxicillin/Clavulanate Potassium (Amoxicillin/Clavulanate 875 Mg Tab) 1 tab PO BIDM [facility]; Protocol Stop: 04/16/21 07:59 Last Admin: 04/13/21 09:30 Dose: 1 tab Documented by: Aspirin (Aspirin 81 Mg Ectab) 81 mg PO DAILY [facility] Stop: 05/09/21 08:59 Last Admin: 04/13/21 09:31 Dose: 81 mg Documented by: Atorvastatin Calcium ([facility]atin 40 Mg Tab) [facility] Stop: 05/09/21 08:59 Last Admin: 04/13/21 09:32 Dose: 40 mg Documented by: Benzonatate (Benzonatate 100 Mg Capsule) 100 mg PO TID PRN PRN Reason: Cough Stop: 05/08/21 23:38 Last Admin: 04/12/21 21:29 Dose: 100 mg Documented by: Docusate Sodium (Docusate Sodium 100 Mg Cap) 100 mg PO BID [facility] Stop: 05/08/21 20:59 Last Admin: 04/13/21 09:33 Dose: 100 mg Documented by: Ferrous Sulfate (Ferrous Sulfate 325 Mg Tab) 325 mg PO BID [facility] Stop: 05/08/21 20:59 Last Admin: 04/12/21 21:29 Dose: 325 mg Documented by: Fish Oil ([place]-3 (Purified Fish Oil) 1 Gm Cap) [facility] Stop: 05/09/21 08:59 Last Admin: 04/13/21 09:32 Dose: 1 gm Documented by: Guaifenesin (Guaifenesin 600 Mg Tabcr) 600 mg PO Q12 [facility] Stop: 05/08/21 20:59 Last Admin: 04/13/21 09:34 Dose: 600 mg Documented by: Promethazine HCl 6.25 mg/ (Sodium Chloride) 50.25 mls @ 201 mls/hr IV Q6H PRN PRN Reason: Nausea And Vomiting Stop: 05/08/21 15:12 Ipratropium [place] (Ipratropium [place] Neb Soln 0.02% 2.5 Ml Vial) 0.5 mg INH Q4H PRN PRN Reason: Shortness Of Breath Or Wheezing Stop: 05/08/21 23:44 Levalbuterol HCl (Levalbuterol 1.25mg/0.5ml Neb) 1.25 mg INH Q4H PRN PRN Reason: Shortness Of Breath Or Wheezing Stop: 05/08/21 23:44 Levothyroxine Sodium (Levothyroxine Sodium 50 Mcg Tablet) [facility] Stop: 05/09/21 06:29 Last Admin: 04/13/21 05:42 Dose: 50 mcg Documented by: Loratadine (Loratadine 10 Mg Tab) 10 mg PO [facility] Stop: 05/09/21 08:59 Last Admin: 04/13/21 09:33 Dose: 10 mg Documented by: Magnesium Hydroxide (Magnesium Hydroxide Susp 30 Ml Udc) 30 ml PO Q12H PRN PRN Reason: Constipation Stop: 05/08/21 15:12 Miscellaneous Information (Augmentin: Pharmacy Consult In Progress) 1 ea N/A UD PRN PRN Reason: Consult Stop: 05/09/21 03:38 Multivitamins ([facility]ivitamin Tab) [facility] Stop: 05/09/21 08:59 Last Admin: 04/13/21 09:35 Dose: 1 tab Documented by: Multivitamins/Minerals (Calcium 600mg + Vit D 400 Iu Tab) [facility] Stop: 05/09/21 08:59 Last Admin: 04/13/21 09:30 Dose: 1 tab Documented by: Pantoprazole Sodium (Pantoprazole 40 Mg Tab) 40 mg PO BID [facility] Stop: 05/10/21 08:59 Last Admin: 04/13/21 09:32 Dose: 40 mg Documented by: Polyethylene Glycol (Polyethylene (Miralax) 17 Gm Pack) 17 gm PO DAILY PRN PRN Reason: Constipation Stop: 05/08/21 15:12
--- NOTE | 2021-04-13 16:01 | Discharge Summary ---
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 Of significance patient with recent hospitalization starting 01/24 to 02/01/2021 secondary to anemia and GI bleed with a hemoglobin of 5.8 on admission requiring transfusion as well as acute new CVA of the left caudate and pericardial effusions. She was restarted on aspirin and Plavix. Unfortunately patient was readmitted on 02/05 to 02/13/2021 with recurrent anemia and a hemoglobin of 6.3. She has been taken off Plavix but maintained on aspirin per neurology. GI had patient scheduled for outpatient capsule endoscopy. Unfortunately patient again rehospitalized 03/04 to 03/07/2021 with recurrent GI bleeding and hemoglobin of 6.7 in ER requiring transfusion. She has had a EGD which revealed gastritis and a negative colonoscopy recently. Hemoglobin remained stable. She was also treated for UTI during this admission. She presents today after waking up this morning feeling generally weak having black tarry stool. In regards to her anemia she has been following outpatient hematology oncology and did receive MonoferricX1 dose on 03/23/2021. Per ED provider and patient she did undergo video capsule endoscopy which revealed AVM of small bowel, but these reports are not available. She states this morning when she got up she felt generally very weak and had significant difficulty walking. When she did make her way to the bathroom she had very hard time getting off the commode after having a bowel movement. She noted her stools were black. She denies any recent fever, chills, sweats, lightheaded, dizzy, chest pain, shortness of breath, URI symptoms, nausea, vomiting, abdominal pain. She does have a chronic moist cough. In ED patient made hemodynamically stable. Her hemoglobin and hemato crit was 10.2 and 30.7 respectively. Further lab abnormalities include BUN [address] was without acute intracranial abnormalities. Chest x- ray reveals new right lung basilar opacity suggestive of atelectasis versus pneumonia. Chronic interstitial coarsening. Admission Exam Per Admitting Provider Constitutional: Elderly, thin, petite, F, vitals as above, NAD, sitting up in bed, pleasant, conversing easily but [place] Head: Normocephalic, Atraumatic Eyes: PERRL, conjunctivae normal, anicteric sclerae ENMT: external ear and nose normal, oropharynx normal Neck: trachea midline, no thyromegaly normal visual inspection Respiratory: +moist cough, +rhonchi, normal respiratory effort, lungs clear to auscultation, no wheeze, rales, rhonchi. Normal insp/exp effort, no accessory muscle use Cardiovascular: RRR, no murmur, no edema Vessels: no JVD or carotid bruit Chest: normal inspection of chest Abdomen: normal bowel sounds, soft, nontender, no hepatosplenomegaly Musculoskeletal: no cyanosis or clubbing, extremities motor strength 5/5 Skin: no rashes, warm and dry normal turgor Neurologic: PERRL, EOMI, accommodation nl, no face palsy, no dysarthria CN's II-XI intact bilaterally and moves all extremities Psychiatric: A+Ox3 to basics, euthymic affect Lymphatic: no cervical or axillary lymphadenopathy : deferred Principal Diagnosis Weakness Aspiration pneumonia chronic blood loss anemia Discharge Exam CONSTITUTIONAL: WNWD, vitals as above, NAD EYES: normal conjunctivae, no scleral icterus ENT: external ear and nose normal, MMM RESPIRATORY: clear to auscultation bilaterally, no crackles, rales or wheezes, normal respiratory effort CARDIOVASCULAR: regular rate and rhythm, S1 and 2 heard without murmurs, gallops or rubs, no JVD, no peripheral edema GASTROINTESTINAL: soft, nontender, nondistended, no guarding. MUSCULOSKELETAL: although strength is intact and she is moving extremities symmetrically she is generally weak, head is normocephalic and atraumatic SKIN: warm and dry NEUROLOGIC: No facial palsy, no dysarthria. CN 2-12 grossly intact, no sensory deficit, normal cognition, normal speech, no tremor PSYCHIATRIC: alert and cooperative Discharge Data Allergies Allergy/AdvReac Type Severity Reaction Status Date / Time latex Allergy Unknown RASH Verified 04/08/21 12:47 No Known Drug Allergies Allergy Unknown . Verified 04/08/21 12:47 Consultations 04/08/21 14:08 Consult Gastroenterology Routine 04/10/21 09:57 Consult Palliative Care Routine Procedures Performed Operation Date: 04/13/21 16:30 <No data on this case meets the specified criteria> Ordered Studies Laboratory Results WBC 6.12 K/uL (4.8-10.8) 04/12/21 07:48 RBC 3.61 M/uL (4.2-5.4) L 04/12/21 07:48 Hgb 10.2 g/dL (12.0-16.0) L 04/12/21 07:48 Hct 32.2 % (37-47) L 04/12/21 07:48 MCV 89.2 fL (80-100) 04/12/21 07:48 MCH 28.3 pg (25-34) 04/12/21 07:48 MCHC 31.7 g/dL (32-36) L 04/12/21 07:48 RDW Std Deviation 62.0 fL (36.4-46.3) H 04/12/21 07:48 RDW Coeff of Ruddy 18.8 % (11.5-14.5) H 04/12/21 07:48 Plt Count 292 K/uL (130-400) 04/12/21 07:48 MPV 8.4 fL (7.4-10.4) 04/12/21 07:48 Immature Gran % (Auto) 0.3 % 04/11/21 06:41 Neut % (Auto) 71.3 % 04/11/21 06:41 Lymph % (Auto) 16.8 % 04/11/21 06:41 [place] % (Auto) 9.3 % 04/11/21 06:41 Eos % (Auto) 2.2 % 04/11/21 06:41 Baso % (Auto) 0.1 % 04/11/21 06:41 Neut # (Auto) 4.96 K/uL (1.4-6.5) 04/11/21 06:41 Lymph # (Auto) 1.17 K/uL (1.2-3.4) L 04/11/21 06:41 [place]wey # (Auto) 0.65 K/uL (0.11-0.59) H 04/11/21 06:41 Eos # (Auto) 0.15 K/uL (0-0.5) 04/11/21 06:41 Baso # (Auto) 0.01 K/uL (0-0.2) 04/11/21 06:41 Immature Gran # (Auto) 0.02 K/uL (0.00-0.02) 04/11/21 06:41 PT 10.3 Seconds (9.0-12.0) 04/08/21 11:07 INR 1.0 (0.9-1.1) 04/08/21 11:07 APTT 23.4 Seconds (21.0-31.0) 04/08/21 11:07 PTT Ratio 0.9 04/08/21 11:07 Sodium 140 mmol/L (136-145) 04/12/21 07:48 Potassium 4.1 mmol/L (3.5-5.1) 04/12/21 07:48 Chloride 107 mmol/L (98-107) 04/12/21 07:48 Carbon Dioxide 28 mmol/L (21-32) 04/12/21 07:48 Anion Gap 5.0 (3-11) 04/12/21 07:48 BUN 23 mg/dl (7-18) H 04/12/21 07:48 Creatinine 0.97 mg/dl (0.6-1.2) 04/12/21 07:48 Est Cr Clr Drug Dosing 46.3 ml/min 04/12/21 07:48 Est GFR ( Amer) 67.6 ml/min 04/12/21 07:48 Est GFR (Non-Af Amer) 58.3 ml/min 04/12/21 07:48 BUN/Creatinine Ratio 23.8 (10-20) H 04/12/21 07:48 Glucose 72 mg/dl (70-99) 04/12/21 07:48 Lactate 0.9 mmol/L (0.4-2.0) 04/08/21 12:29 Calcium 9.0 mg/dl (8.5-10.1) 04/12/21 07:48 Phosphorus 3.2 mg/dl (2.5-4.9) 04/12/21 07:48 Magnesium 2.1 mg/dl (1.8-2.4) 04/12/21 07:48 Total Bilirubin 0.4 mg/dl (0.2-1) 04/09/21 09:19 AST 40 U/L (15-37) H 04/09/21 09:19 ALT 37 U/L (12-78) 04/09/21 09:19 Alkaline Phosphatase 79 U/L (45-117) 04/09/21 09:19 Troponin I < 0.015 ng/ml (0-0.045) 04/08/21 11:07 Total Protein 6.2 gm/dl (6.4-8.2) L 04/09/21 09:19 Albumin 2.7 gm/dl (3.4-5.0) L 04/09/21 09:19 Globulin 3.5 gm/dl (2.5-4.0) 04/09/21 09:19 Albumin/Globulin Ratio 0.8 (0.9-2) L 04/09/21 09:19 Procalcitonin < 0.05 ng/ml (0-0.5) 04/08/21 15:32 Urine Color Yellow 04/08/21 13:21 Urine Appearance Clear (Clear) 04/08/21 13:21 Urine pH 8.0 (4.5-7.5) H 04/08/21 13:21 Ur Specific [place] 1.009 (1.000-1.030) 04/08/21 13:21 Urine Protein Negative (Negative) 04/08/21 13:21 Urine Glucose (UA) Negative (Negative) 04/08/21 13:21 Urine Ketones Negative (Negative) 04/08/21 13:21 Urine Blood Negative (Negative) 04/08/21 13:21 Urine Nitrite Negative (Negative) 04/08/21 13:21 Urine Bilirubin Negative (Negative) 04/08/21 13:21 Urine Urobilinogen Negative (Negative) 04/08/21 13:21 Ur Leukocyte Esterase Negative (Negative) 04/08/21 13:21 COVID-19 Eval Order Covid19 at [facility] 04/08/21 11:23 SARS-CoV-2 (PCR) NEGATIVE (Negative) 04/08/21 11:23 Blood Type O Positive 04/08/21 11:07 Antibody Screen NEGATIVE 04/08/21 11:07 Impressions Chest X-Ray 04/08/21 10:57 XR chest 1V portable HISTORY: 70 years-old Female weak acute weakness COMPARISON: 03/04/2021 TECHNIQUE: Portable AP view the chest FINDINGS: Cardiac silhouette is enlarged. Dense calcifications of the mitral annulus. Chronic interstitial coarsening with new/progressive right lung base opacities. No pneumothorax, large pleural effusion or overt pulmonary edema. Degenerative changes of the shoulders and spine. IMPRESSION: 1. New right lung base opacities suggestive of atelectasis versus pneumonia. 2. Cardiomegaly without overt pulmonary edema. 3. Chronic interstitial coarsening. ACT 112: Negative or not required by law. The above report was generated using voice recognition software. It may contain grammatical, syntax or spelling errors. Electronically signed by: Josh Marino M.D. 04/08/2021 11:[address] 04/08/21 11:00 CT head/brain wo con CLINICAL HISTORY: 70 years-old Female with weak. Acute weakness TECHNIQUE: Multiple axial CT images of the head were obtained without contrast. A dose lowering technique was utilized adhering to the principles of ALARA. CT DOSE: 614.27 mGy.cm COMPARISON: Head CT 02/04/2021 FINDINGS: No acute intracranial hemorrhage, midline shift, intra-axial mass, hydrocephalus, territorial ischemia or abnormal extra-axial collection. Age- related involutional changes. White matter hypodensities suggestive of chronic microvascular ischemic disease. Cerebral vascular calcifications. Small chronic lacunar infarct of the left parietal lobe hernandez radiata. 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 Tiny hypodensity of the anterior limb left internal capsule on image 16 suggestive of a chronic lacunar infarct. Diffusely heterogeneous appearance of the calvarium with a mottled appearance is stable from comparison. No acute calvarial fracture. Trace right and large left mastoid effusions with fluid also present within the left middle ear cavity. Mild mucoperiosteal thickening of the paranasal sinuses. Unremarkable soft tissues. Prior bilateral lens repair. IMPRESSION: 1. Chronic findings as above without acute intracranial abnormality. 2. Trace right and large left mastoid effusions. ACT 112: Negative or not required by law. The above report was generated using voice recognition software. It may contain grammatical, syntax or spelling errors. Electronically signed by: Josh Marino M.D. 04/08/2021 11:46 AM Hospital Course (1) Weakness: Generalized weakness-multifactorial etiology. Assessed by physical therapy who recommends inpatient rehab, however, after speaking with her son, that would not be the family's preference. Patient and her live with their son and his family who are currently helping to care for the patient. They are comfortable with providing home health for PT, OT and continuing home speech therapy efforts. At this time, she is doing well on the modified diet and the family is opting to hold on the PEG tube-communicated this to the GI provider. From a standpoint of weakness, she also does have chronic blood loss anemia contributing and there is a definitive surgical treatment planned in early Apr for her AVMs. Sent home with home health. (2) Aspiration pneumonia: Patient with recent evaluation by speech revealing high risk for aspiration. She has a new right lung base opacity and presented with a white blood cell count of 17 K. Procalcitonin was negative. Started on Unasyn for presumed aspiration pneumonia with transition to Augmentin. Was hypoxic on 2LPM intiially but weaned off prior to discharge, helped by ambulation around the floor with the staff. Movement and incentive spirometry was continually encouraged. She was doing well on her modified diet at time of discharge. Will continue with home health for continued speech therapy and family updated on modifications and techniques to help limit any aspiration. 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 Followed by Heme/Onc Recent Upper and Lower GI negative for bleed. +FOBT in ED. Remained hemodynamically stable with Hb better than it has been in last 6 months. Definitive surgery is planned in early Apr. No blood transfusions needed--cont outpatient monitoring and GI followup. (4) CKD (chronic kidney disease) stage 3, GFR 30-59 ml/min: renal function at baseline. (5) History of CVA (cerebrovascular accident): cont ASA/statin for secondary prohylaxis. Plavix was discontinued recently (prior to this admission) 2/2 GI bleeding. She was evaluated on 04/09 by the inpatient speech therapist and was able to accept multiple cup and straw drinks with no overt signs or symptoms of aspiration. There was no change in vocal quality, no coughing and. No throat clearing. Of note, her recent video swallow study noted silent aspiration. The recommendation was to continue on a moist diet with thin liquids and aspiration precautions and mouth care or to have another video swallow/FEES completed to determine if she is aspirating on honey or pudding thick liquids, however, noting this will be a quality of life issue as she will likely struggle to maintain hydration on thickened consistencies. Family opted to continue with the current oral diet accepting the risks of silent aspiration and forgo the PEG tube for now. Total Time Total Time Spent Total Time Spent (In Minutes): 60 Discharge Plan Discharge Items Patient Disposition: Home - Home Health Services Reason For Visit: WEAKNESS, CHRONIC GIB Discharge Diagnosis: Weakness Aspiration pneumonia chronic blood loss anemia Condition on Discharge: Fair Activity: Resume your previous activity Non-emergency contact: Primary Care Provider Call non-emergency contact if: you have any medication questions, your symptoms worsen, your pain is not controlled, your pain is worsening, your pain is unusual for you, your pain is concerning for you and you have a fever Follow-up/Referrals: Max Pendleton, [Primary Care Provider] - (Date & Time 04/20/2021 10:20 AM Provider Sahara Ayoub MD Department General Internal Medicine [facility] ) Diet: Regular Diet Texture: Mechanical soft (ground) Diet Comment: minced and moist, add sauce/gravy to add foods Addtl Attending Provider Instructions: Please take all medications as instructed on discharge list below. Please continue working with home health physical and occupational therapists for increasing strength and endurance to goals. The recommendation from the inpatient therapists was to attend an inpatient rehabilitation program. Additionally, home health for continued speech therapy to work on swallowing ability may be helpful. Please remember you have a high risk of aspiration. Ad herence to the techniques and diet modifications offered by the speech therapist may be helpful to avoid aspiration but is not absolute. A follow-up with your primary care physician is recommended in the next 1 week to ensure you are still doing well since leaving the hospital. It was a pleasure taking care of you! Please call if you have any questions or problems. You can reach a [facility] hospitalist on duty at [facility] 24 hours a day by calling [phone]. Take care of yourself. Adelia Mccoy DO [facility] Pending Studies at Discharge: No Stand-Alone Forms: My [facility] Medications and DC Order Prescriptions: New amoxicillin-pot clavulanate [Augmentin] 875-125 mg Tablet 1 tab PO BIDM Qty: 6 RF: 0 Continued atorvastatin 40 mg tablet 40 mg PO QAM RF: 0 levothyroxine 50 mcg tablet 50 mcg PO QAM RF: 0 omega [id number] oil [Fish Oil] 1,000 mg (120 mg-180 mg) Capsule 1 cap PO QAM RF: 0 calcium carbonate-vitamin D3 [Os-Tobias 500 + D3] 500mg (1,250mg) -600 unit Tablet 1 tab PO QAM RF: 0 pantoprazole 40 mg Tablet,Delayed Release (Dr/Ec) 40 mg PO BID Qty: 60 RF: 1 ferrous sulfate 325 mg (65 mg iron) Tablet 325 mg PO BID RF: 0 Lactinex 1 million cell tablet,chewable 1 tab PO BID Qty: 30 RF: 0 multivitamin Tablet 1 tab PO QAM RF: 0 acetaminophen [Tylenol] 325 mg Tablet 325 mg PO Q6H PRN (Reason: Mild Pain (Scale Score 1-4)) RF: 0 docusate sodium 100 mg Tablet 100 mg PO BID RF: 0 loratadine [Claritin] 10 mg Tablet 10 mg PO QAM RF: 0 simethicone 80 mg Tablet 80 mg PO Q6 PRN (Reason: bloating) RF: 0 guaifenesin [Mucinex] 600 mg Tablet Extended Release 12hr 600 mg PO Q12 Qty: 14 RF: 0 aspirin 81 mg Tablet,Delayed Release (Dr/Ec) 81 mg PO DAILY RF: 0 Discharge Orders: Discharge Order (Routine); Ordered 04/13/21 Ordered By: Adelia Mccoy Admission Data Admit Date/Time: 04/08/21 14:08 Attending Provider: Adelia Mccoy Admit Provider: Jay Bronson Primary Care Provider: Max Pendleton Other Providers: Regina Clark ; Jay Bronson ; Sasha Claire ; [facility] Other Interventions: Discharge Summary Assessment (RN) Last Done: 04/13/21 16:37
== END 2021-04-13 18:17 | disposition home health service (06) | DRG 178 ==
LOC: ED 09:49 → SUATTDRO 14:08 → 2N 14:08
DX: J98.11 Atelectasis; K92.2 Gastrointestinal hemorrhage, unspecified; E03.9 Hypothyroidism, unspecified; F03.90 Unspecified dementia, unspecified severity, without behavioral disturbance, psychotic disturbance, mood disturbance, and anxiety; Z86.73 Personal history of transient ischemic attack (TIA), and cerebral infarction without residual deficits; E78.5 Hyperlipidemia, unspecified; I12.9 Hypertensive chronic kidney disease with stage 1 through stage 4 chronic kidney disease, or unspecified chronic kidney disease; D64.9 Anemia, unspecified; J69.0 Pneumonitis due to inhalation of food and vomit; N18.30 Chronic kidney disease, stage 3 unspecified

== ENCOUNTER 2022-02-02 22:02 | Inpatient (IN) ==
[2022-02-02] MEDS ORDERED: PIPERACILLIN/TAZOBACTAM 4.5 GM/120 ML BAG IV ONE (22:36)
[2022-02-02] MEDS ORDERED: ALBUT/IPRATROP 3MG/0.5MG NEB 3 ML VIAL NEB STA (22:36)
--- NOTE | 2022-02-02 22:41 | Emergency Department Note ---
Impression & Plan Acute respiratory distress, Cough, Acute UTI, Acute confusion, Acute dehydration ED Provider Note NAME: SHAN GRAY AGE: 71 SEX: F : 1950 ARRIVES VIA: Walk-In INFORMANT: Patient, ED PROVIDER(S): Nathan Sosa MD Chief Complaint: Weakness, confusion HPI: Patient presents with son at bedside due to concern for worsening confusion as well as weakness. The patient does have a known history of dementia at baseline and prior ICH. No recent falls or trauma. The patient did seem to have a slight decline in status just in the last 24 hours. The patient did have about of an accident and the son was concerned of the possibility of UTI. Patient does not take any blood thinning medications. She has had a cough. No fevers or chills. The patient is on a baby aspirin but no other blood thinning medications. Patient is a full code per son who is POA. Patient also relates that she had the inability to get up from a chair and while she may have some mild difficulty with this at times she seemed to be more profoundly weak compared to her baseline. ROS: See HPI for pertinent positives and negatives. A total of 10 systems were reviewed and otherwise negative. Past medical history: See below Surgical history: See below Social history: See below Physical Exam: GENERAL: Moderately ill in appearance and tachypneic. EYE EXAM: Normal conjunctiva. PERRL, no anisocoria and EOM's grossly intact w/o pain. NECK: Supple, no nuchal rigidity, no adenopathy, non-tender. No signs of meningismus. LUNGS: Coarse sounds throughout, tachypnea noted. HEART: NSR, no MRG. ABDOMEN: Abdomen soft, non-tender, normo-active bowel sounds, no masses, no rebound or guarding. BACK: No CVA TTP. SKIN: No rashes and no bruising. UPPER EXTREMITIES: Upper extremities are grossly normal. LOWER EXTREMITIES: Grossly normal, no edema. NEURO EXAM: A&O x3, cranial nerves II-XII grossly intact, normal speech, moves all 4 extremities on command w/o issue. Differential diagnoses: Infection, dehydration, metabolic abnormality, hypo/hyperglycemia, electrolyte disturbance, anemia, hypoxia, cardiac sources, intracerebral event, toxicologic, neurologic, as well as other pathologies. Course: Patient was seen and evaluated the bedside. Full history physical exam was performed. EKG interpreted by me Sinus axis, normal intervals, normal axis, T wave version lead III noncontiguous leads. Imaging Studies: 1 view chest x-ray Questionable scarring at the right lung base. Cardiac monitoring: An order was placed for continuous cardiac monitoring. The monitor shows a rate of 82 with sinus rhythm. MDM: Patient was seen due to concern for respiratory distress weakness and confusion. Blood work was obtained along with blood cultures. The patient was started empirically on antibiotics. Patient was ordered DuoNeb treatments as well as to be started on BiPAP as the patient did have tachypnea and seem to be in respiratory distress. Blood work shows normal white count H&H and platelet count. The patient's kidney function is unremarkable with prerenal azotemia. The patient did receive IV fluids. Procalcitonin is not elevated. Urinalysis does show likely infection. Given the patient's respiratory distress confusion dehydration UTI believe the patient would benefit from inpatient treatment. Pat ient did appear much more comfortable after being placed on the BiPAP. I did speak the on-call hospitalist Dr. Mayers and the patient was admitted to the medicine service. Critical Care: I have personally spent 42 minutes of critical care time in direct management of this patient. This includes bedside care, interpretation of diagnostic studies, and testing, discussion with consultants, patient, and family members, and other require inpatient management activities. This 42 minutes is in excess of all separately billable procedures. 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 History of sinus surgery History of total hysterectomy with bilateral salpingo-oophorectomy (BSO) Status post bilateral hip replacements R 1995; L2001 R redo 2006 Family History Mother Lung disease Sister Cirrhosis GI bleed Social History Smoking Status: Never smoker Second Hand Exposure: No; Hx Alcohol Use: No Hx Substance Use: No Preferred Language: Kinyarwanda Communication Ability: Impaired Lion Trainer Required: No Beliefs That Will Affect Care: None marital status: Current Living Situation: Spouse Current Living Situation Comment: lives with son and current occupational status: retired Feels Safe at Home: Yes Assistive Devices: Denture - Upper, Denture - Lower and Walker Allergies Allergies Allergy/AdvReac Type Severity Reaction Status Date / Time latex Allergy Unknown RASH Verified 02/02/22 23:28 No Known Drug Allergies Allergy Unknown . Verified 02/02/22 23:28 Home Meds Home Medications Medication Instructions Recorded Confirmed levothyroxine 50 mcg tablet 50 mcg PO DAILYBB 10/06/18 02/02/22 omega 9-[id number]-usr-fish oil 1,000 mg 1 cap PO QAM 10/06/18 02/02/22 (120 mg-180 mg) capsule (Fish Oil) docusate sodium 100 mg tablet 100 mg PO BID 01/24/21 02/02/22 loratadine 10 mg tablet (Claritin) 10 mg PO QAM 01/24/21 02/02/22 multivitamin 1 tab PO QAM 01/24/21 02/02/22 ferrous sulfate 325 mg (65 mg 325 mg PO DAILY 03/04/21 02/02/22 iron) tablet aspirin 81 mg chewable tablet 81 mg PO DAILY 11/10/21 02/02/22 atorvastatin 40 mg tablet 40 mg PO DAILY 11/10/21 02/02/22 calcium carbonate 500 mg calcium 500 mg PO DAILY 11/10/21 02/02/22 (1,250 mg) tablet pantoprazole 40 mg tablet,delayed 40 mg PO DAILY 11/10/21 02/02/22 release Previous Rx's Medication Instructions Recorded guaifenesin 600 mg tablet, 600 mg PO Q12 #14 tab 01/29/21 extended release 12 hr (Mucinex) Results & Data (ED) Vital Signs Vital Signs - 24 hr 02/02/22 22:03 02/02/22 22:35 02/02/22 22:43 Temperature 37 C Temperature Source Temporal Artery Scan Pulse Rate 88 88 Pulse Rate [Finger] 85 Pulse Rate from SpO2 Sensor Respiratory Rate 24 18 18 Respiratory Effort / Characteristics Respiratory Depth Respiratory Pattern Blood Pressure 160/82 H Blood Pressure [Right Arm] 167/84 H Blood Pressure Mean 108 Blood Pressure Mean [Right Arm] 111 Pulse Oximetry 92 93 93 Oxygen Delivery Method Room Air Room Air Room Air Fraction of Inspired Oxygen Sepsis Recent Fever Within 48 Hours No Sepsis New/Unexplained Change in Mental Status Yes Sepsis Action Taken by Nursing No Action Required 02/02/22 22:52 02/02/22 22:53 02/02/22 23:09 Temperature Temperature Source Pulse Rate 85 Pulse Rate [Finger] 85 87 Pulse Rate from SpO2 Sensor Respiratory Rate 23 23 14 Respiratory Effort / Characteristics Spontaneous Labored Short of Breath Spontaneous Accessory Muscle Use Labored Respiratory Depth Normal Respiratory Pattern Regular Tachypnea Blood Pressure Blood Pressure [Right Arm] 150/90 H Blood Pressure Mean Blood Pressure Mean [Right Arm] 110 Pulse Oximetry 97 97 97 Oxygen Delivery Method BiPAP BiPAP Fraction of Inspired Oxygen 25 25 Sepsis Recent Fever Within 48 Hours Sepsis New/Unexplained Change in Mental Status Sepsis Action Taken by Nursing 02/02/22 23:27 02/03/22 00:00 02/03/22 00:30 Temperature Temperature Source Pulse Rate 84 80 Pulse Rate [Finger] Pulse Rate from SpO2 Sensor 84 79 Respiratory Rate 23 22 Respiratory Effort / Characteristics Respiratory Depth Respiratory Pattern Blood Pressure 156/87 H 154/81 H Blood Pressure [Right Arm] Blood Pressure Mean 110 105 Blood Pressure Mean [Right Arm] Pulse Oximetry 98 97 97 Oxygen Delivery Method BiPAP BiPAP BiPAP Fraction of Inspired Oxygen Sepsis Recent Fever Within 48 Hours Sepsis New/Unexplained Change in Mental Status Sepsis Action Taken by Nursing 02/03/22 01:26 Temperature Temperature Source Pulse Rate Pulse Rate [Finger] Pulse Rate from SpO2 Sensor Respiratory Rate Respiratory Effort / Characteristics Non-Labored Spontaneous Respiratory Depth Respiratory Pattern Blood Pressure Blood Pressure [Right Arm] Blood Pressure Mean Blood Pressure Mean [Right Arm] Pulse Oximetry 98 Oxygen Delivery Method BiPAP Fraction of Inspired Oxygen Sepsis Recent Fever Within 48 Hours Sepsis New/Unexplained Change in Mental Status Sepsis Action Taken by Detention Medications Current Medication List: was personally reviewed by me Laboratory Data Attestation: I reviewed the patient's lab results. Result diagrams: 02/02/22 22:33 02/02/22 22:33 Lab Results 0602/02/22 02/02/22 Range/Units 22:32 22:33 22:33 WBC 7.26 (4.8-10.8) K/uL RBC 4.27 (4.2-5.4) M/uL Hgb 12.6 (12.0-16.0) g/dL Hct 38.5 (37-47) % MCV 90.2 (80-100) fL MCH 29.5 (25-34) pg MCHC 32.7 (32-36) g/dL RDW Std Deviation 46.9 H (36.4-46.3) fL RDW Coeff of Ruddy 14.3 (11.5-14.5) % Plt Count 217 (130-400) K/uL MPV 9.6 (7.4-10.4) fL Immature Gran % (Auto) 0.1 % Neut % (Auto) 56.7 % Lymph % (Auto) 28.0 % [place] % (Auto) 11.6 % Eos % (Auto) 3.3 % Baso % (Auto) 0.3 % Neut # (Auto) 4.12 (1.4-6.5) K/uL Lymph # (Auto) 2.03 (1.2-3.4) K/uL [place] # (Auto) 0.84 H (0.11-0.59) K/uL Eos # (Auto) 0.24 (0-0.5) K/uL Baso # (Auto) 0.02 (0-0.2) K/uL Immature Gran # (Auto) 0.01 (0.00-0.02) K/uL PT 10.8 (9.0-12.0) Seconds INR 1.0 (0.9-1.1) APTT 26.7 (21.0-31.0) Seconds PTT Ratio 1.0 Sodium (136-145) mmol/L Potassium (3.5-5.1) mmol/L Chloride (98-107) mmol/L Carbon Dioxide (21-32) mmol/L Anion Gap (3-11) BUN (6-23) mg/dl Creatinine (0.6-1.2) mg/dl Est Cr Clr Drug Dosing ml/min Est GFR ( Amer) ml/min Est GFR (Non-Af Amer) ml/min BUN/Creatinine Ratio (10-20) Glucose (70-99(Fasting)) mg/dl Lactate (0.4-2.0) mmol/L Calcium (8.5-10.1) mg/dl Magnesium (1.7-2.4) mg/dl Total Bilirubin (0.2-1.0) mg/dl AST (13-39) U/L ALT (7-52) U/L Alkaline Phosphatase (34-104) U/L Total Protein (6.0-8.3) gm/dl Albumin (3.4-5.0) gm/dl Globulin (2.5-4.0) gm/dl Albumin/Globulin Ratio (0.9-2) Procalcitonin (0-0.5) ng/ml Urine Color Yellow Urine Appearance Clear (Clear) Urine pH 5.5 (4.5-7.5) Ur Specific [place] 1.021 (1.000-1.030) Urine Protein Negative (Negative) Urine Glucose (UA) Negative (Negative) Urine Ketones Negative (Negative) Urine Blood 2+ H (Negative) Urine Nitrite Positive A (Negative) Urine Bilirubin Negative (Negative) Urine Urobilinogen Negative (Negative) Ur Leukocyte Esterase 1+ H (Negative) Urine WBC (Auto) 10-30 H (0-5) /hpf Urine RBC (Auto) 0-4 (0-4) /hpf U Hyaline Cast (Auto) 1-5 (0-5) /lpf U Epithel Cells (Auto) 5-10 H (0-5) /lpf Urine Bacteria (Auto) 4+ H (Negative) SARS-CoV-2 (PCR) (Negative) Influenza Type A (PCR) (Neg) Influenza Type B (PCR) (Neg) RSV (RT-PCR) (Neg) 02/02/22 02/02/22 02/02/22 Range/Units 22:33 22:33 22:46 WBC (4.8-10.8) K/uL RBC (4.2-5.4) M/uL Hgb (12.0-16.0) g/dL Hct (37-47) % MCV (80-100) fL MCH (25-34) pg MCHC (32-36) g/dL RDW Std Deviation (36.4-46.3) fL RDW Coeff of Ruddy (11.5-14.5) % Plt Count (130-400) K/uL MPV (7.4-10.4) fL Immature Gran % (Auto) % Neut % (Auto) % Lymph % (Auto) % [place] % (Auto) % Eos % (Auto) % Baso % (Auto) % Neut # (Auto) (1.4-6.5) K/uL Lymph # (Auto) (1.2-3.4) K/uL [place] # (Auto) (0.11-0.59) K/uL Eos # (Auto) (0-0.5) K/uL Baso # (Auto) (0-0.2) K/uL Immature Gran # (Auto) (0.00-0.02) K/uL PT (9.0-12.0) Seconds INR (0.9-1.1) APTT (21.0-31.0) Seconds PTT Ratio Sodium 139 (136-145) mmol/L Potassium 4.0 (3.5-5.1) mmol/L Chloride 104 (98-107) mmol/L Carbon Dioxide 29 (21-32) mmol/L Anion Gap 6 (3-11) BUN 28 H (6-23) mg/dl Creatinine 1.20 (0.6-1.2) mg/dl Est Cr Clr Drug Dosing 34.5 ml/min Est GFR ( Amer) 51.9 ml/min Est GFR (Non-Af Amer) 44.8 ml/min BUN/Creatinine Ratio 23.3 H (10-20) Glucose 91 (70-99(Fasting)) mg/dl Lactate 0.8 (0.4-2.0) mmol/L Calcium 9.3 (8.5-10.1) mg/dl Magnesium 1.9 (1.7-2.4) mg/dl Total Bilirubin 0.7 (0.2-1.0) mg/dl AST 28 (13-39) U/L ALT 20 (7-52) U/L Alkaline Phosphatase 81 (34-104) U/L Total Protein 7.2 (6.0-8.3) gm/dl Albumin 4.1 (3.4-5.0) gm/dl Globulin 3.1 (2.5-4.0) gm/dl Albumin/Globulin Ratio 1.3 (0.9-2) Procalcitonin < 0.05 (0-0.5) ng/ml Urine Color Urine Appearance (Clear) Urine pH (4.5-7.5) Ur Specific [place] (1.000-1.030) Urine Protein (Negative) Urine Glucose (UA) (Negative) Urine Ketones (Negative) Urine Blood (Negative) Urine Nitrite (Negative) Urine Bilirubin (Negative) Urine Urobilinogen (Negative) Ur Leukocyte Esterase (Negative) Urine WBC (Auto) (0-5) /hpf Urine RBC (Auto) (0-4) /hpf U Hyaline Cast (Auto) (0-5) /lpf U Epithel Cells (Auto) (0-5) /lpf Urine Bacteria (Auto) (Negative) SARS-CoV-2 (PCR) (Negative) Influenza Type A (PCR) (Neg) Influenza Type B (PCR) (Neg) RSV (RT-PCR) (Neg) 02/02/22 Range/Units 23:04 WBC (4.8-10.8) K/uL RBC (4.2-5.4) M/uL Hgb (12.0-16.0) g/dL Hct (37-47) % MCV (80-100) fL MCH (25-34) pg MCHC (32-36) g/dL RDW Std Deviation (36.4-46.3) fL RDW Coeff of Ruddy (11.5-14.5) % Plt Count (130-400) K/uL MPV (7.4-10.4) fL Immature Gran % (Auto) % Neut % (Auto) % Lymph % (Auto) % [place] % (Auto) % Eos % (Auto) % Baso % (Auto) % Neut # (Auto) (1.4-6.5) K/uL Lymph # (Auto) (1.2-3.4) K/uL [place] # (Auto) (0.11-0.59) K/uL Eos # (Auto) (0-0.5) K/uL Baso # (Auto) (0-0.2) K/uL Immature Gran # (Auto) (0.00-0.02) K/uL PT (9.0-12.0) Seconds INR (0.9-1.1) APTT (21.0-31.0) Seconds PTT Ratio Sodium (136-145) mmol/L Potassium (3.5-5.1) mmol/L Chloride (98-107) mmol/L Carbon Dioxide (21-32) mmol/L Anion Gap (3-11) BUN (6-23) mg/dl Creatinine (0.6-1.2) mg/dl Est Cr Clr Drug Dosing ml/min Est GFR ( Amer) ml/min Est GFR (Non-Af Amer) ml/min BUN/Creatinine Ratio (10-20) Glucose (70-99(Fasting)) mg/dl Lactate (0.4-2.0) mmol/L Calcium (8.5-10.1) mg/dl Magnesium (1.7-2.4) mg/dl Total Bilirubin (0.2-1.0) mg/dl AST (13-39) U/L ALT (7-52) U/L Alkaline Phosphatase (34-104) U/L Total Protein (6.0-8.3) gm/dl Albumin (3.4-5.0) gm/dl Globulin (2.5-4.0) gm/dl Albumin/Globulin Ratio (0.9-2) Procalcitonin (0-0.5) ng/ml Urine Color Urine Appearance (Clear) Urine pH (4.5-7.5) Ur Specific [place] (1.000-1.030) Urine Protein (Negative) Urine Glucose (UA) (Negative) Urine Ketones (Negative) Urine Blood (Negative) Urine Nitrite (Negative) Urine Bilirubin (Negative) Urine Urobilinogen (Negative) Ur Leukocyte Esterase (Negative) Urine WBC (Auto) (0-5) /hpf Urine RBC (Auto) (0-4) /hpf U Hyaline Cast (Auto) (0-5) /lpf U Epithel Cells (Auto) (0-5) /lpf Urine Bacteria (Auto) (Negative) SARS-CoV-2 (PCR) NEGATIVE (Negative) Influenza Type A (PCR) Negative (Neg) Influenza Type B (PCR) Negative (Neg) RSV (RT-PCR) Negative (Neg) Administered Medications Discontinued Medications Albuterol (Albut/Ipratrop 3mg/0.5mg Neb 3 Ml Vial) 6 ml NEB NOW STA; Protocol Stop: 02/02/22 22:37 Last Admin: 02/02/22 22:51 Dose: 6 ml Documented by: [id number] Sodium Chloride (Nss 1000ml) 1,000 mls @ 999 mls/hr IV .[id number] MORENITA Stop: 02/02/22 23:45 Last Infusion: 02/03/22 00:14 Dose: 0 mls/hr Documented by: [id number] Admin: 02/02/22 23:03 Dose: 999 mls/hr Documented by: [id number] Piperacillin Sod/Tazobactam Sod (Zosyn) 4.5 gm in 120 mls @ 240 mls/hr IV NOW ONE Stop: 02/02/22 23:05 Last Infusion: 02/02/22 23:42 Dose: 0 mls/hr Documented by: [id number] Admin: 02/02/22 23:02 Dose: 240 mls/hr Documented by: [id number] Discharge Plan Visit Data Chief Complaint: Confusion Stated Complaint: CANNOT FUNCTION, CONFUSED ED Provider: Nathan Sosa Discharge Problem: Acute respiratory distress, Cough, Acute UTI, Acute confusion, Acute dehydration Patient Disposition: Admitted As Inpatient Forms Stand Alone Forms: [facility] Prescriptions Prescriptions: No Action levothyroxine 50 mcg tablet 50 mcg PO DAILYBB RF: 0 omega 8-qta-lwf-fish oil [Fish Oil] 1,000 mg (120 mg-180 mg) Capsule 1 cap PO QAM RF: 0 ferrous sulfate 325 mg (65 mg iron) Tablet 325 mg PO DAILY RF: 0 atorvastatin 40 mg tablet 40 mg PO DAILY RF: 0 pantoprazole 40 mg tablet,delayed release (DR/EC) 40 mg PO DAILY RF: 0 calcium carbonate [Calcium 500] 500 mg calcium (1,250 mg) Tablet 500 mg PO DAILY RF: 0 aspirin [Aspirin For Children] 81 mg Tablet,Chewable 81 mg PO DAILY RF: 0 multivitamin Tablet 1 tab PO QAM RF: 0 docusate sodium 100 mg Tablet 100 mg PO BID RF: 0 loratadine [Claritin] 10 mg Tablet 10 mg PO QAM RF: 0 guaifenesin [Mucinex] 600 mg Tablet Extended Release 12hr 600 mg PO Q12 Qty: 14 RF: 0 Referrals Referrals: Max Pendleton DO [Primary Care Provider] -
[2022-02-02] MEDS ORDERED: SODIUM CHLORIDE 0.9% 1000ML 1,000 ML IV SCH (22:45)
[2022-02-02 22:50] LABS: Basophils # (auto) 0.02 K/uL (0-0.2); Basophils % (auto) 0.3 %; Eosinophils # (auto) 0.24 K/uL (0-0.5); Eosinophils % (auto) 3.3 %; Hematocrit (blood only) 38.5 % (37-47); Hemoglobin 12.6 g/dL (12.0-16.0); Immature Granulocytes # (auto) 0.01 K/uL (0.00-0.02); Immature Granulocytes % (auto) 0.1 %; Lymphocytes # (auto) 2.03 K/uL (1.2-3.4); Mean Corpuscular Hemoglobin 29.5 pg (25-34); Mean Corpuscular Hgb Conc 32.7 g/dL (32-36); Mean Corpuscular Volume 90.2 fL (80-100); Mean Platelet Volume 9.6 fL (7.4-10.4); Monocytes # (auto) 0.84 K/uL (0.11-0.59); Monocytes % (auto) 11.6 %; Neutrophils # (auto) 4.12 K/uL (1.4-6.5); Neutrophils % (auto) 56.7 %; Platelet Count 217 K/uL (130-400); RDW Coefficient of Variation 14.3 % (11.5-14.5); RDW Standard Deviation 46.9 fL (36.4-46.3); Red Blood Count 4.27 M/uL (4.2-5.4); White Blood Count 7.26 K/uL (4.8-10.8)
[2022-02-02 22:54] LABS: Appearance Urine Clear (Clear); Bacteria Urine Automated 4+ (Negative); Bilirubin Urine Negative (Negative); Blood Urine 2+ (Negative); Color Urine Yellow; Glucose Urine UA Negative (Negative); Ketones Urine Negative (Negative); Leukocyte Esterase Urine 1+ (Negative); Nitrite Urine Positive (Negative); Protein Urine Negative (Negative); RBC Urine Automated 0-4 /hpf (0-4); Specific Gravity Urine 1.021 (1.000-1.030); Urobilinogen Urine Negative (Negative); pH Urine 5.5 (4.5-7.5)
[2022-02-02 23:07] LABS: Partial Thromboplastin Time 26.7 Seconds (21.0-31.0); Prothrombin Time 10.8 Seconds (9.0-12.0)
[2022-02-02 23:09] LABS: Albumin Globulin Ratio 1.3 (0.9-2); Albumin Level 4.1 gm/dl (3.4-5.0); BUN Creatinine Ratio 23.3 (10-20); Bilirubin,Total 0.7 mg/dl (0.2-1.0); Calcium 9.3 mg/dl (8.5-10.1); Creatinine Clr Calc Pharmacy 34.5 ml/min; Est GFR (African American) 51.9 ml/min; Est GFR (Non-African American) 44.8 ml/min; Globulin 3.1 gm/dl (2.5-4.0); Magnesium 1.9 mg/dl (1.7-2.4); Total Protein 7.2 gm/dl (6.0-8.3)
[2022-02-02 23:59] LABS: Influenza A virus by PCR Negative (Neg); Influenza B virus by PCR Negative (Neg); RSV by PCR Negative (Neg); SARS CoV2 RNA(COVID-19) InHosp NEGATIVE (Negative)
[2022-02-03] MEDS ORDERED: MAGNESIUM SULFATE / D5W 1 GM/100 ML BAG IV ONE (01:20)
[2022-02-03] MEDS ORDERED: DOXYCYCLINE HYCLATE 100 MG in DEXTROSE 5% 100 ML IV STA (01:55)
--- NOTE | 2022-02-03 01:57 | History & Physical Report ---
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 SCDs Re: Recent ICH Full code Patient son requesting updates from providers. Mr. Corey Avilez, contact #[phone]. Text document was generated using [employer] voice recognition software. It may contain grammatical or spelling errors. Kindly contact undersigned for clarification of any documentation item in question. History of Present Illness Chief Complaint: Cough, shortness of breath Confusion as per records Primary Care Provider: Max Pendleton DO History obtained from patient, family, and records. History limited from patient secondary to dementia. Medical history significant for CVA, recent traumatic ICH, hypertension, valvular heart disease (severe , moderate AR, mild TR), history of PVD, history AL L status post bone marrow transplantation, chronic anemia ( baseline hemoglobin of 11), dementia, past tobacco abuse. Last [facility] confinement for aspiration pneumonia. Patient confined at [facility] last October 2021 for traumatic intracranial hemorrhage. No operative intervention. Patient aspirin for ischemic stroke prophylaxis later on resumed outpatient. Patient with junky cough symptoms the last few days. No chest pain, no SOB. No known sick contacts. Patient completed COVID-19 vaccination. No recent witnessed aspiration events at home. Patient noted to be disoriented by son. Patient brought to the ER for evaluation. Given ceftriaxone for possible UTI. Medical History as above Surgical History : Bone marrow transplant, lacrimal duct exploration, sinus surgery, ODILON/BSO, hip replacement Family History : Cirrhosis, alcoholism Personal/Social history : Past tobacco abuse, no EtOH intake, retired from [employer], lives with son and . Allergies Allergy/AdvReac Type Severity Reaction Status Date / Time latex Allergy Unknown RASH Verified 02/02/22 23:28 No Known Drug Allergies Allergy Unknown . Verified 02/02/22 23:28 Home Medications Medication Instructions Recorded Confirmed Type levothyroxine 50 mcg tablet 50 mcg PO DAILYBB 10/06/18 02/02/22 History omega 6-dli-mdu-fish oil 1,000 mg 1 cap PO QAM 10/06/18 02/02/22 History (120 mg-180 mg) capsule (Fish Oil) docusate sodium 100 mg tablet 100 mg PO BID 01/24/21 02/02/22 History loratadine 10 mg tablet (Claritin) 10 mg PO QAM 01/24/21 02/02/22 History multivitamin 1 tab PO QAM 01/24/21 02/02/22 History guaifenesin 600 mg tablet, 600 mg PO Q12 #14 tab 01/29/21 02/02/22 Rx extended release 12 hr (Mucinex) ferrous sulfate 325 mg (65 mg 325 mg PO DAILY 03/04/21 02/02/22 History iron) tablet aspirin 81 mg chewable tablet 81 mg PO DAILY 11/10/21 02/02/22 History atorvastatin 40 mg tablet 40 mg PO DAILY 11/10/21 02/02/22 History calcium carbonate 500 mg calcium 500 mg PO DAILY 11/10/21 02/02/22 History (1,250 mg) tablet pantoprazole 40 mg tablet,delayed 40 mg PO DAILY 11/10/21 02/02/22 History release Past Med/Surg History Medical History Adnexal mass CT [facility] 05/01/20 - 7.2 x 4.8 cm cystic L adnexal mass s/p total hyster and BSO 05/2020 Anemia Cerebrovascular disease (09/07/11) 2012 Dementia Heme positive stool History of acute lymphoid leukemia History of adenomatous polyp of colon HLD (hyperlipidemia) Meningioma " interhemispheric frontal mass 4 x 9 mm per MRI 01/25/14" Surgical History History of bilateral hip replacements 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 History of sinus surgery History of total hysterectomy with bilateral salpingo-oophorectomy (BSO) Status post bilateral hip replacements R 1995; L2001 R redo 2006 Family History Mother Lung disease Sister Cirrhosis GI bleed Social History Smoking Status: Never smoker Second Hand Exposure: No; Hx Alcohol Use: No Hx Substance Use: No Preferred Language: Irish Communication Ability: Effective Plumbing Instructor Required: No Beliefs That Will Affect Care: None marital status: Current Living Situation: Spouse and Family Current Living Situation Comment: lives in the finished basement of her son's home current occupational status: retired Other Information That Helps Us Care for You: No Feels Safe at Home: Yes Safety Concerns: Feels Safe At This Time Assistive Devices: Denture - Upper, Denture - Lower and Walker Review of Systems Review of Systems: Could not be reliably obtained secondary to dementia Physical Exam Physical Exam: GENERAL: Comfortable, demented, no respiratory distress SKIN: Normal color, warm HEENT: Sulphur palpebral conjunctivae, no ptosis, dry buccal mucosa, O2 mask in place NECK : Supple, no tenderness CHEST : Decreased breath sounds, expiratory wheezes, no tenderness HEART : RRR, systolic murmur ABDOMEN: Some distention, nontender EXTREMITIES : No LE swelling/tenderness, no other conspicuous deformities noted NEUROLOGIC : Demented, no facial asymmetry, gait and stance not assessed Results & Data Results & Data ([facility]) Vital Signs (Past 12 Hours) Vital Signs Temp Pulse Pulse Resp BP BP Pulse Ox 02/03/22 01:30 79 23 136/86 97 02/03/22 01:26 98 02/03/22 01:00 82 19 142/93 H 98 02/03/22 00:30 80 22 154/81 H 97 02/03/22 00:00 84 23 156/87 H 97 02/02/22 23:27 98 02/02/22 23:09 87 14 150/90 H 97 02/02/22 22:53 85 23 97 02/02/22 22:52 85 23 97 02/02/22 22:43 88 18 93 02/02/22 22:35 85 18 167/84 H 93 02/02/22 22:03 37 C 88 24 160/82 H 92 Laboratory Results Laboratory Results WBC 7.26 K/uL (4.8-10.8) 02/02/22 22:33 RBC 4.27 M/uL (4.2-5.4) 02/02/22 22:33 Hgb 12.6 g/dL (12.0-16.0) 02/02/22 22: Hct 38.5 % (37-47) 02/02/22 22: MCV 90.2 fL (80-100) 02/02/22 22: MCH 29.5 pg (25-34) 02/02/22 22: MCHC 32.7 g/dL (32-36) 02/02/22: RDW Std Deviation 46.9 fL (36.4-46.3) H 02/02/22 22: RDW Coeff of Ruddy 14.3 % (11.5-14.5) 02/02/22: Plt Count 217 K/uL (130-400) 02/02/22: MPV 9.6 fL (7.4-10.4) 02/02/22: Immature Gran % (Auto) 0.1 % 02/02/22: Neut % (Auto) 56.7 % 02/02/22: Lymph % (Auto) 28.0 % 02/02/22 22:33 Delta % (Auto) 11.6 % 02/02/22: Eos % (Auto) 3.3 % 02/02/22: Baso % (Auto) 0.3 % 02/02/22: Neut # (Auto) 4.12 K/uL (1.4-6.5) 02/02/22: Lymph # (Auto) 2.03 K/uL (1.2-3.4) 02/02/22: Delta # (Auto) 0.84 K/uL (0.11-0.59) H 02/02/22 22: Eos # (Auto) 0.24 K/uL (0-0.5) 02/02/22: Baso # (Auto) 0.02 K/uL (0-0.2) 02/02/22: Immature Gran # (Auto) 0.01 K/uL (0.00-0.02) 02/02/22: PT 10.8 Seconds (9.0-12.0) 02/02/22 22:33 INR 1.0 (0.9-1.1) 02/02/22 22:33 APTT 26.7 Seconds (21.0-31.0) 02/02/22 22:33 PTT Ratio 1.0 02/02/22 22:33 Sodium 139 mmol/L (136-145) 02/02/22 22:33 Potassium 4.0 mmol/L (3.5-5.1) 02/02/22 22:33 Chloride 104 mmol/L (98-107) 02/02/22 22:33 Carbon Dioxide 29 mmol/L (21-32) 02/02/22 22:33 Anion Gap 6 (3-11) 02/02/22 22:33 BUN 28 mg/dl (6-23) H 02/02/22 22:33 Creatinine 1.20 mg/dl (0.6-1.2) 02/02/22 22:33 Est Cr Clr Drug Dosing 34.5 ml/min 02/02/22 22:33 Est GFR ( Amer) 51.9 ml/min 02/02/22 22:33 Est GFR (Non-Af Amer) 44.8 ml/min 02/02/22 22:33 BUN/Creatinine Ratio 23.3 (10-20) H 02/02/22 22:33 Glucose 91 mg/dl (70-99(Fasting)) 02/02/22 22:33 Lactate 0.8 mmol/L (0.4-2.0) 02/02/22 22:46 Calcium 9.3 mg/dl (8.5-10.1) 02/02/22 22:33 Magnesium 1.9 mg/dl (1.7-2.4) 02/02/22 22:33 Total Bilirubin 0.7 mg/dl (0.2-1.0) 02/02/22 22:33 AST 28 U/L (13-39) 02/02/22 22:33 ALT 20 U/L (7-52) 02/02/22 22:33 Alkaline Phosphatase 81 U/L (34-104) 02/02/22 22:33 Total Protein 7.2 gm/dl (6.0-8.3) 02/02/22 22:33 Albumin 4.1 gm/dl (3.4-5.0) 02/02/22 22:33 Globulin 3.1 gm/dl (2.5-4.0) 02/02/22 22:33 Albumin/Globulin Ratio 1.3 (0.9-2) 02/02/22 22:33 Procalcitonin < 0.05 ng/ml (0-0.5) 02/02/22 22:33 Urine Color Yellow 02/02/22 22:32 Urine Appearance Clear (Clear) 02/02/22 22:32 Urine pH 5.5 (4.5-7.5) 02/02/22 22:32 Ur Specific [place] 1.021 (1.000-1.030) 02/02/22 22:32 Urine Protein Negative (Negative) 02/02/22 22:32 Urine Glucose (UA) Negative (Negative) 02/02/22: Urine Ketones Negative (Negative) 02/02/22 22: Urine Blood 2+ (Negative) H 02/02/22 22:32 Urine Nitrite Positive (Negative) A 02/02/22 22: Urine Bilirubin Negative (Negative) 02/02/22 22: Urine Urobilinogen Negative (Negative) 02/02/22 22:32 Ur Leukocyte Esterase 1+ (Negative) H 02/02/22 22:32 Urine WBC (Auto) 10-30 /hpf (0-5) H 02/02/22 22:32 Urine RBC (Auto) 0-4 /hpf (0-4) 02/02/22 22:32 U Hyaline Cast (Auto) 1-5 /lpf (0-5) 02/02/22 22:32 U Epithel Cells (Auto) 5-10 /lpf (0-5) H 02/02/22 22:32 Urine Bacteria (Auto) 4+ (Negative) H 02/02/22 22:32 SARS-CoV-2 (PCR) NEGATIVE (Negative) 02/02/22 23:04 Influenza Type A (PCR) Negative (Neg) 02/02/22 23:04 Influenza Type B (PCR) Negative (Neg) 02/02/22 23:04 RSV (RT-PCR) Negative (Neg) 02/02/22 23:[address] head initial read: No acute intracranial hemorrhage or abnormal extra-axial fluid collection. Previouslydemonstrated small acute parafalcine subdural hematomas are no longer identified. No acute stroke. Old left parietal periventricular encephalomalacia. Non-specificwhite matter changes, most commonlyseen with small vessel disease. Age-appropriate central and peripheral atrophy. No midline shift. No paranasal sinus air-fluid level. Unchanged left mastoid sclerosis and partial opacification. Redemonstrated mild right maxillarysinus mucosal thickening. No fracture. Chest x-ray as per my interpretation no congestion EKG as per my interpretation : Rate 85, junctional rhythm, septal infarct, T wave abnormality septal leads
[2022-02-03] MEDS ORDERED: ACETAMINOPHEN 325 MG TAB PO PRN (03:29)
[2022-02-03] MEDS: LEVOTHYROXINE SODIUM 50 MCG TABLET PO SCH (04:58)
[2022-02-03 06:46] LABS: Basophils # (auto) 0.01 K/uL (0-0.2); Basophils % (auto) 0.2 %; Eosinophils # (auto) 0.18 K/uL (0-0.5); Eosinophils % (auto) 3.1 %; Hemoglobin 11.5 g/dL (12.0-16.0); Immature Granulocytes # (auto) 0.02 K/uL (0.00-0.02); Immature Granulocytes % (auto) 0.3 %; Lymphocytes # (auto) 1.36 K/uL (1.2-3.4); Lymphocytes % (auto) 23.6 %; Mean Corpuscular Hemoglobin 29.1 pg (25-34); Mean Corpuscular Hgb Conc 31.9 g/dL (32-36); Mean Corpuscular Volume 91.1 fL (80-100); Mean Platelet Volume 9.6 fL (7.4-10.4); Monocytes # (auto) 0.83 K/uL (0.11-0.59); Monocytes % (auto) 14.4 %; Neutrophils # (auto) 3.37 K/uL (1.4-6.5); Neutrophils % (auto) 58.4 %; Platelet Count 193 K/uL (130-400); RDW Coefficient of Variation 14.3 % (11.5-14.5); RDW Standard Deviation 48.1 fL (36.4-46.3); Red Blood Count 3.95 M/uL (4.2-5.4); White Blood Count 5.77 K/uL (4.8-10.8)
[2022-02-03] MEDS ORDERED: LEVALBUTEROL HCL 1.25 MG/3 ML NEB ONE ×3 (06:59→23:55)
[2022-02-03] MEDS ORDERED: XOPENEX/ATROVENT 1.25mg/0.5MG NEB COMBO NEB SCH (07:00)
[2022-02-03] MEDS: IPRATROPIUM BROMIDE NEB SOLN 0.02% 2.5 ML VIAL INH SCH ×3 (07:02→19:28)
[2022-02-03] MEDS: LEVALBUTEROL 1.25MG/0.5ML NEB INH SCH ×3 (07:02→19:28)
[2022-02-03 07:05] LABS: BUN Creatinine Ratio 22.7 (10-20); Calcium 8.8 mg/dl (8.5-10.1); Creatinine Clr Calc Pharmacy 39.2 ml/min; Est GFR (African American) 52.4 ml/min; Est GFR (Non-African American) 45.3 ml/min; Potassium 3.9 mmol/L (3.5-5.1)
--- NOTE | 2022-02-03 07:20 | XRay Report ---
XR chest 1V portable CLINICAL HISTORY: SEPSIS. COMPARISON STUDY: 11/10/2021 TECHNIQUE: 1 view of the chest FINDINGS: Single frontal view of the chest demonstrates the cardiomediastinal silhouette to be within normal li mits. The lungs are clear of alveolar opacities. There is no evidence for pleural effusion. There is no evidence for vascular congestion. There is no acute osseous pathology. IMPRESSION: 1. No acute cardiopulmonary disease. ACT 112: Negative or not required by law. Electronically signed by: Ruben Toney M.D. 02/03/2022 7:19 AM
--- NOTE | 2022-02-03 07:50 | CT Scan Report ---
CT head/brain wo con CLINICAL HISTORY: ams and confusion COMPARISON STUDY: 11/10/2021 CT DOSE: 614.27 mGy.cm TECHNIQUE: Standard CT of the Brain was performed without IV contrast. A dose lowering technique was utilized adhering to the principles of ALARA. FINDINGS: Extraaxial space: Compared to previous examination, there has been interval resolution of small paraf alcine subdural hematoma. There is slight residual increased attenuation is seen along the falx anter iorly on the left which is unchanged and is most likely chronic. There is no edema or midline shift. There are no extra-axial fluid collections. Ventricles and cisterns: The ventricles are mildly dilated bilaterally. There is no evidence for midl ine shift or mass effect. Parenchyma: There is no subarachnoid or intraparenchymal hemorrhage. There is no evidence for an acut e infarct or cerebral edema. Old lacunar infarct is again seen on the left. There is mild cerebral co rtical atrophy and decreased attenuation in the periventricular white matter representing remote smal l vessel disease. There are no gross mass lesions. Osseous structures: There is no evidence for an acute fracture. There is again asymmetric coastal thi ckening involving the right maxillary antrum. The remaining visualized paranasal sinuses are clear. T here is again asymmetric opacification of the mastoid air cells on the left when compared to the righ t. Soft tissues: There is no evidence for focal soft tissue swelling. IMPRESSION: 1. No acute intracerebral pathology. 2. Interval resolution of small parafalcine subdural hematoma. 3. Slight residual increased attenuation is seen along the falx anteriorly on the left which is uncha nged and most likely chronic. 4. Cerebral cortical atrophy and extensive remote small vessel disease. 5. Mild chronic right maxillary sinusitis and opacification of the left mastoid air cells are again s een. ACT 112: Negative or not required by law. Electronically signed by: Ruben Toney M.D. 02/03/2022 7:48 AM
[2022-02-03] MEDS: LORATADINE 10 MG TAB PO SCH (08:52)
[2022-02-03] MEDS: ATORVASTATIN 40 MG TAB PO SCH (08:52)
[2022-02-03] MEDS: MULTIVITAMIN TAB PO SCH (08:52)
[2022-02-03] MEDS: ASPIRIN 81 MG ECTAB PO SCH (08:52)
[2022-02-03] MEDS: PANTOprazole 40 MG TAB PO SCH (08:52)
[2022-02-03] MEDS: CEFEPIME 2,000 MG in SYRINGE 0 ML IV SCH (08:52)
[2022-02-03] MEDS: DOCUSATE SODIUM 100 MG CAP PO SCH ×2 (08:52→20:42)
[2022-02-03] MEDS: FERROUS SULFATE 325 MG TAB PO SCH (13:27)
--- NOTE | 2022-02-03 14:14 | Hospitalist Progress Note ---
Date of Service February 03, 2022 Assessment & Plan (1) Delirium: Plan: ?Delirium on admission in setting of UTI and dementia- seems resolved. UTI- UA suggestive of UTI. Started on cefepime pending final urine culture results ?bronchitis- has chronic cough for years, slightly worsened for few weeks now, CXR without PNA- started on doxy on admission. send sputum clx if able. add mucinex. H/o CVAx3- - on ASA, statin. H/o traumatic ICH 11/10/21 with small parafalcine SDH and diffuse tSAH - CT head shows resolution of hematoma Seen by neurosurg 01/19 Valvular heart disease- Eco 01/26/22 with EF 61%, grade 2 diastolic dysfunction, severely calcified aortic valve with severe , moderate AR, mild TR- maintain euvolemic status. Caution with excess IVF. OP cardio follow up Hypothyroidism- TSH normal. on sythroid history of ALL status post bone marrow transplantation, in remission DVT ppx- sc heparin Dispo- pending final urine clx results, PT eval Updated son Corey Avilez, contact #[phone] and answered all questions- provided info about severe and need for OP cardio follow up as soon as possible Admission and Anticipated Discharge Date Admission Date: February 03, 2022 Subjective Seen and examined at bedside. AAOx2, conversing well. Tolerated clears without issues- states she likes maccaroni cheese and would like to have that for lunch. No fever chills, chest pain, shortness of breath, nausea, vomiting. Physical Exam Physical Exam: General: Lying comfortably in bed, not in distress, on room air HEENT: EOMI, CELSA, MMM Chest: Clear breath sounds bilaterally, no wheezes or crackles CVS: Regular rate and rhythm, normal heart sounds, no murmur Abdomen: Soft, non tender, not distended, normal bowel sounds Neuro: Awake, alert, oriented, conversing well, non focal Extremities: No cyanosis, clubbing or edema Results & Data Results & Data ([facility]) Vital Signs (Past 12 Hours) Vital Signs Temp Pulse Pulse Resp BP BP BP 02/03/22 13:04 85 18 02/03/22 11:23 36.5 C 79 18 131/81 02/03/22 07:48 36.6 C 80 18 146/81 H 02/03/22 07:09 78 18 02/03/22 03:35 36.9 C 78 16 150/74 H 02/03/22 03:17 82 02/03/22 02:38 02/03/22 02:30 76 21 138/67 Pulse Ox 02/03/22 13:04 93 02/03/22 11:23 92 02/03/22 07:48 93 02/03/22 07:09 96 02/03/22 03:35 02/03/22 03:17 02/03/22 02:38 95 02/03/22 02:30 94 Laboratory Results Short CBC 02/02/22 02/03/22 Range/Units 22:33 06:14 WBC 7.26 5.77 (4.8-10.8) K/uL Hgb 12.6 11.5 L (12.0-16.0) g/dL Hct 38.5 36.0 L (37-47) % Plt Count 217 193 (130-400) K/uL BMP 02/02/22 02/03/22 22:33 06:14 Sodium 139 139 Potassium 4.0 3.9 Chloride 104 105 Carbon Dioxide 29 29 BUN 28 H 27 H Creatinine 1.20 1.19 Glucose 91 91 Calcium 9.3 8.8 Liver Function 02/02/22 Range/Units 22:33 Total Bilirubin 0.7 (0.2-1.0) mg/dl AST 28 (13-39) U/L ALT 20 (7-52) U/L Alkaline Phosphatase 81 (34-104) U/L Albumin 4.1 (3.4-5.0) gm/dl Urine 02/02/22 Range/Units 22:32 Urine Color Yellow Urine Appearance Clear (Clear) Urine pH 5.5 (4.5-7.5) Ur Specific [place] 1.021 (1.000-1.030) Urine Protein Negative (Negative) Urine Glucose (UA) Negative (Negative) Diagnostic Findings Chest X-Ray 02/02/22 22:36 XR chest 1V portable CLINICAL HISTORY: SEPSIS. COMPARISON STUDY: 11/10/2021 TECHNIQUE: 1 view of the chest FINDINGS: Single frontal view of the chest demonstrates the cardiomediastinal silhouette to be within normal limits. The lungs are clear of alveolar opacities. There is no evidence for pleural effusion. There is no evidence for vascular congestion. There is no acute osseous pathology. IMPRESSION: 1. No acute cardiopulmonary disease. ACT 112: Negative or not required by law. Electronically signed by: Ruben Toney M.D. 02/03/2022 7:[address] 02/03/22 02:01 CT head/brain wo con CLINICAL HISTORY: ams and confusion COMPARISON STUDY: 11/10/2021 CT DOSE: 614.27 mGy.cm TECHNIQUE: Standard CT of the Brain was performed without IV contrast. A dose lowering technique was utilized adhering to the principles of ALARA. FINDINGS: Extraaxial space: Compared to previous examination, there has been interval resolution of small parafalcine subdural hematoma. There is slight residual increased attenuation is seen along the falx anteriorly on the left which is unchanged and is most likely chronic. There is no edema or midline shift. There are no extra-axial fluid collections. Ventricles and cisterns: The ventricles are mildly dilated bilaterally. There is no evidence for midline shift or mass effect. Parenchyma: There is no subarachnoid or intraparenchymal hemorrhage. There is no evidence for an acute infarct or cerebral edema. Old lacunar infarct is again seen on the left. There is mild cerebral cortical atrophy and decreased attenuation in the periventricular white matter representing remote small vessel disease. There are no gross mass lesions. Osseous structures: There is no evidence for an acute fracture. There is again asymmetric coastal thickening involving the right maxillary antrum. The remaining visualized paranasal sinuses are clear. There is again asymmetric opacification of the mastoid air cells on the left when compared to the right. Soft tissues: There is no evidence for focal soft tissue swelling. IMPRESSION: 1. No acute intracerebral pathology. 2. Interval resolution of small parafalcine subdural hematoma. 3. Slight residual increased attenuation is seen along the falx anteriorly on the left which is unchanged and most likely chronic. 4. Cerebral cortical atrophy and extensive remote small vessel disease. 5. Mild chronic right maxillary sinusitis and opacification of the left mastoid air cells are again seen. ACT 112: Negative or not required by law. Electronically signed by: Ruben Toney M.D. 02/03/2022 7:48 AM Medications Administered Current Inpatient Medications Acetaminophen (Acetaminophen 325 Mg Tab) 650 mg PO Q4H PRN PRN Reason: Pain or Fever Stop: 03/05/22 03:28 Aspirin (Aspirin 81 Mg Ectab) 81 mg PO DAILY [facility] Stop: 03/05/22 08:59 Last Admin: 02/03/22 08:52 Dose: 81 mg Documented by: Atorvastatin Calcium (Atorvastatin 40 Mg Tab) 40 mg PO DAILY [facility] Stop: 03/05/22 08:59 Last Admin: 02/03/22 08:52 Dose: 40 mg Documented by: Docusate Sodium (Docusate Sodium 100 Mg Cap) 100 mg PO BID [facility] Stop: 03/05/22 08:59 Last Admin: 02/03/22 08:52 Dose: 100 mg Documented by: Doxycycline Hyclate (Doxycycline Hyclate 100 Mg Cap) 100 mg PO BID [facility] Stop: 02/10/22 20:59 Ferrous Sulfate (Ferrous Sulfate 325 Mg Tab) 325 mg PO Q24H [facility] Stop: 03/05/22 13:59 Last Admin: 02/03/22 13:27 Dose: 325 mg Documented by: Cefepime HCl 2,000 mg/ Syringe 20 mls @ 5 mls/min IV Q24H [facility]; Protocol Stop: 02/13/22 07:59 Last Admin: 02/03/22 08:52 Dose: 5 mls/min Documented by: Ipratropium [place] (Ipratropium [place] Neb Soln 0.02% 2.5 Ml Vial) 0.5 mg INH Q6R [facility] Stop: 03/05/22 06:59 Last Admin: 02/03/22 13:02 Dose: 0.5 mg Documented by: Levalbuterol HCl (Levalbuterol 1.25mg/0.5ml Neb) 1.25 mg INH Q6R [facility] Stop: 03/05/22 06:59 Last Admin: 02/03/22 13:02 Dose: 1.25 mg Documented by: Levothyroxine Sodium (Levothyroxine Sodium 50 Mcg Tablet) 50 mcg PO DAILYBB [facility] Stop: 03/05/22 06:29 Last Admin: 02/03/22 04:58 Dose: 50 mcg Documented by: Loratadine (Loratadine 10 Mg Tab) 10 mg PO QAM [facility] Stop: 03/05/22 08:59 Last Admin: 02/03/22 08:52 Dose: 10 mg Documented by: Multivitamins (Multivitamin Tab) 1 tab PO QAM [facility] Stop: 03/05/22 08:59 Last Admin: 02/03/22 08:52 Dose: 1 tab Documented by: Pantoprazole Sodium (Pantoprazole 40 Mg Tab) 40 mg PO DAILY [facility] Stop: 03/05/22 08:59 Last Admin: 02/03/22 08:52 Dose: 40 mg Documented by:
[2022-02-03] MEDS: DOXYCYCLINE HYCLATE 100 MG CAP PO SCH (20:39)
[2022-02-03] MEDS: guaiFENesin 600 MG TABCR PO SCH (20:40)
[2022-02-03] MEDS: HEPARIN SOD 5,000 UNIT/0.5 ML VIAL SQ SCH (20:41)
[2022-02-04] MEDS: IPRATROPIUM BROMIDE NEB SOLN 0.02% 2.5 ML VIAL INH SCH ×4 (00:02→19:39)
[2022-02-04] MEDS: LEVOTHYROXINE SODIUM 50 MCG TABLET PO SCH (05:46)
--- NOTE | 2022-02-04 06:14 | Electrocardiogram Report ---
Test Reason : Blood Pressure : / mmHG Vent. Rate : 086 BPM Atrial Rate : 087 BPM P-R Int : 144 ms QRS Dur : 076 ms QT Int : 386 ms P-R-T Axes : 000 016 029 degrees QTc Int : 461 ms Poor data quality, interpretation may be adversely affected Normal sinus rhythm Septal infarct , age undetermined Abnormal ECG When compared with ECG of 10-NOV-2021 17:37, Septal infarct is now Present Confirmed by Calderon Shi ([id number]) on 02/04/2022 6:14:34 AM Referred By: REFERRED SELF Confirmed By:Calderon Shi
[2022-02-04] MEDS ORDERED: LEVALBUTEROL HCL 1.25 MG/3 ML NEB ONE (07:15)
[2022-02-04] MEDS: LEVALBUTEROL 1.25MG/0.5ML NEB INH SCH ×4 (07:20→19:40)
[2022-02-04] MEDS: CEFEPIME 2,000 MG in SYRINGE 0 ML IV SCH (08:05)
[2022-02-04] MEDS: LORATADINE 10 MG TAB PO SCH (08:05)
[2022-02-04] MEDS: PANTOprazole 40 MG TAB PO SCH (08:06)
[2022-02-04] MEDS: ASPIRIN 81 MG ECTAB PO SCH (08:06)
[2022-02-04] MEDS: MULTIVITAMIN TAB PO SCH (08:06)
[2022-02-04] MEDS: ATORVASTATIN 40 MG TAB PO SCH (08:07)
[2022-02-04] MEDS: guaiFENesin 600 MG TABCR PO SCH ×2 (08:08→21:23)
[2022-02-04] MEDS: DOXYCYCLINE HYCLATE 100 MG CAP PO SCH ×2 (08:08→21:24)
[2022-02-04] MEDS: HEPARIN SOD 5,000 UNIT/0.5 ML VIAL SQ SCH ×2 (08:11→21:24)
[2022-02-04] MEDS: DOCUSATE SODIUM 100 MG CAP PO SCH ×2 (08:15→21:24)
--- NOTE | 2022-02-04 12:59 | Hospitalist Progress Note ---
Date of Service February 04, 2022 Assessment & Plan (1) E. coli UTI: Plan: UTI- Urine clx with E coli, sensitivities pending- On cefepime pending final results ?bronchitis- has chronic cough for years, slightly worsened for few weeks now, CXR without PNA- started on doxy on admission. send sputum clx if able. Continue mucinex. H/o CVAx3- - on ASA, statin. H/o traumatic ICH 11/10/21 with small parafalcine SDH and diffuse tSAH - CT head shows resolution of hematoma Seen by neurosurg 01/19 Valvular heart disease- Eco 01/26/22 with EF 61%, grade 2 diastolic dysfunction, severely calcified aortic valve with severe , moderate AR, mild TR- maintain euvolemic status. Caution with excess IVF. OP cardio follow up Hypothyroidism- TSH normal. on sythroid history of ALL status post bone marrow transplantation, in remission ?Delirium on admission in setting of UTI and dementia- resolved. DVT ppx- sc heparin Dispo- pending final urine clx results, PT eval Update: son Corey Avilez, contact #[phone] Admission and Anticipated Discharge Date Admission Date: February 03, 2022 Subjective No new issues. She is upset that she has been just lying in bed and not getting any activities. States she can do that at home and does not need to be here. No fever, chills, nausea, vomiting. Physical Exam Physical Exam: General: Lying comfortably in bed, not in distress, on room air HEENT: EOMI, CELSA, MMM Chest: Clear breath sounds bilaterally, no wheezes or crackles CVS: Regular rate and rhythm, normal heart sounds, no murmur Abdomen: Soft, non tender, not distended, normal bowel sounds Neuro: Awake, alert, oriented, conversing well, non focal Extremities: No cyanosis, clubbing or edema Results & Data Results & Data ([facility]) Vital Signs (Past 12 Hours) Vital Signs Temp Pulse Pulse Resp BP Pulse Ox 02/04/22 12:30 93 H 18 94 02/04/22 10:38 36.3 C L 83 18 128/82 92 02/04/22 07:34 36.7 C 92 H 18 136/75 91 02/04/22 07:21 82 16 93 02/04/22 07:13 73 02/04/22 03:11 36.6 C 82 18 153/91 H 92 Medications Administered Current Inpatient Medications Acetaminophen (Acetaminophen 325 Mg Tab) 650 mg PO Q4H PRN PRN Reason: Pain or Fever Stop: 03/05/22 03:28 Aspirin (Aspirin 81 Mg Ectab) 81 mg PO DAILY [facility] Stop: 03/05/22 08:59 Last Admin: 02/04/22 08:06 Dose: 81 mg Documented by: Atorvastatin Calcium (Atorvastatin 40 Mg Tab) 40 mg PO DAILY [facility] Stop: 03/05/22 08:59 Last Admin: 02/04/22 08:07 Dose: 40 mg Documented by: Docusate Sodium (Docusate Sodium 100 Mg Cap) 100 mg PO BID [facility] Stop: 03/05/22 08:59 Last Admin: 02/04/22 08:15 Dose: 100 mg Documented by: Doxycycline Hyclate (Doxycycline Hyclate 100 Mg Cap) 100 mg PO BID [facility] Stop: 02/10/22 20:59 Last Admin: 02/04/22 08:08 Dose: 100 mg Documented by: Ferrous Sulfate (Ferrous Sulfate 325 Mg Tab) 325 mg PO Q24H [facility] Stop: 03/05/22 13:59 Last Admin: 02/03/22 13:27 Dose: 325 mg Documented by: Guaifenesin (Guaifenesin 600 Mg Tabcr) 600 mg PO Q12 [facility] Stop: 03/05/22 20:59 Last Admin: 02/04/22 08:08 Dose: 600 mg Documented by: Heparin Sodium (Porcine) (Heparin Sod 5,000 Unit/0.5 Ml Vial) 5,000 units SQ Q12 [facility] Stop: 03/05/22 20:59 Last Admin: 02/04/22 08:11 Dose: 5,000 units Documented by: Cefepime HCl 2,000 mg/ Syringe 20 mls @ 5 mls/min IV Q24H [facility]; Protocol Stop: 02/13/22 07:59 Last Admin: 02/04/22 08:05 Dose: 5 mls/min Documented by: Ipratropium [place] (Ipratropium [place] Neb Soln 0.02% 2.5 Ml Vial) 0.5 mg INH Q6R [facility] Stop: 03/05/22 06:59 Last Admin: 02/04/22 12:30 Dose: 0.5 mg Documented by: Levalbuterol HCl (Levalbuterol 1.25mg/0.5ml Neb) 1.25 mg INH Q6R [facility] Stop: 03/05/22 06:59 Last Admin: 02/04/22 12:30 Dose: 1.25 mg Documented by: Levothyroxine Sodium (Levothyroxine Sodium 50 Mcg Tablet) 50 mcg PO DAILYBB [facility] Stop: 03/05/22 06:29 Last Admin: 02/04/22 05:46 Dose: 50 mcg Documented by: Loratadine (Loratadine 10 Mg Tab) 10 mg PO QAM [facility] Stop: 03/05/22 08:59 Last Admin: 02/04/22 08:05 Dose: 10 mg Documented by: Multivitamins (Multivitamin Tab) 1 tab PO [facility] Stop: 03/05/22 08:59 Last Admin: 02/04/22 08:06 Dose: 1 tab Documented by: Pantoprazole Sodium (Pantoprazole 40 Mg Tab) 40 mg PO DAILY [facility] Stop: 03/05/22 08:59 Last Admin: 02/04/22 08:06 Dose: 40 mg Documented by:
[2022-02-04] MEDS: FERROUS SULFATE 325 MG TAB PO SCH (15:14)
[2022-02-05] MEDS: LEVALBUTEROL 1.25MG/0.5ML NEB INH SCH ×3 (00:08→15:38)
[2022-02-05] MEDS: IPRATROPIUM BROMIDE NEB SOLN 0.02% 2.5 ML VIAL INH SCH ×3 (00:09→15:37)
[2022-02-05] MEDS: LEVOTHYROXINE SODIUM 50 MCG TABLET PO SCH (05:54)
[2022-02-05] MEDS ORDERED: LEVALBUTEROL HCL 1.25 MG/3 ML NEB ONE (07:09)
[2022-02-05 07:19] LABS: Hematocrit (blood only) 36.4 % (37-47); Hemoglobin 12.1 g/dL (12.0-16.0); Mean Corpuscular Hemoglobin 30.2 pg (25-34); Mean Corpuscular Hgb Conc 33.2 g/dL (32-36); Mean Corpuscular Volume 90.8 fL (80-100); Mean Platelet Volume 9.6 fL (7.4-10.4); Platelet Count 220 K/uL (130-400); RDW Coefficient of Variation 14.4 % (11.5-14.5); RDW Standard Deviation 48.4 fL (36.4-46.3); Red Blood Count 4.01 M/uL (4.2-5.4); White Blood Count 6.04 K/uL (4.8-10.8)
[2022-02-05] MEDS ORDERED: cefTRIAXone SODIUM 2,000 MG in DEXTROSE 5% 50 ML IV ONE (07:30)
[2022-02-05 07:31] LABS: BUN Creatinine Ratio 26.4 (10-20); Calcium 9.5 mg/dl (8.5-10.1); Creatinine Clr Calc Pharmacy 44.2 ml/min; Est GFR (African American) 60.3 ml/min; Potassium 4.3 mmol/L (3.5-5.1)
[2022-02-05] MEDS: DOCUSATE SODIUM 100 MG CAP PO SCH (08:14)
[2022-02-05] MEDS: guaiFENesin 600 MG TABCR PO SCH (08:14)
[2022-02-05] MEDS: ASPIRIN 81 MG ECTAB PO SCH (08:14)
[2022-02-05] MEDS: MULTIVITAMIN TAB PO SCH (08:15)
[2022-02-05] MEDS: DOXYCYCLINE HYCLATE 100 MG CAP PO SCH (08:15)
[2022-02-05] MEDS: LORATADINE 10 MG TAB PO SCH (08:15)
[2022-02-05] MEDS: ATORVASTATIN 40 MG TAB PO SCH (08:15)
[2022-02-05] MEDS: HEPARIN SOD 5,000 UNIT/0.5 ML VIAL SQ SCH (08:15)
[2022-02-05] MEDS: PANTOprazole 40 MG TAB PO SCH (08:15)
--- NOTE | 2022-02-05 10:32 | Discharge Summary ---
Date of Service February 05, 2022 Admission HPI Per Admitting Provider History obtained from patient, family, and records. History limited from patient secondary to dementia. Medical history significant for CVA, recent traumatic ICH, hypertension, valvular heart disease (severe , moderate AR, mild TR), history of PVD, history AL L status post bone marrow transplantation, chronic anemia ( baseline hemoglobin of 11), dementia, past tobacco abuse. Last [facility] confinement for aspiration pneumonia. Patient confined at [facility] last October 2021 for traumatic intracranial hemorrhage. No operative intervention. Patient aspirin for ischemic stroke prophylaxis later on resumed outpatient. Patient with junky cough symptoms the last few days. No chest pain, no SOB. No known sick contacts. Patient completed COVID-19 vaccination. No recent witnessed aspiration events at home. Patient noted to be disoriented by son. Patient brought to the ER for evaluation. Given ceftriaxone for possible UTI. Medical History as above Surgical History : Bone marrow transplant, lacrimal duct exploration, sinus surgery, DOILON/BSO, hip replacement Family History : Cirrhosis, alcoholism Personal/Social history : Past tobacco abuse, no EtOH intake, retired from [employer], lives with son and . Admission Exam Per Admitting Provider GENERAL: Comfortable, demented, no respiratory distress SKIN: Normal color, warm HEENT: [place] palpebral conjunctivae, no ptosis, dry buccal mucosa, O2 mask in place NECK : Supple, no tenderness CHEST : Decreased breath sounds, expiratory wheezes, no tenderness HEART : RRR, systolic murmur ABDOMEN: Some distention, nontender EXTREMITIES : No LE swelling/tenderness, no other conspicuous deformities noted NEUROLOGIC : Demented, no facial asymmetry, gait and stance not assessed Principal Diagnosis E coli UTI, suspected bronchitis Discharge Exam General: Sitting comfortably in bed eating breakfast, not in distress, on room air HEENT: EOMI, CELSA, MMM Chest: Clear breath sounds bilaterally, no wheezes or crackles CVS: Regular rate and rhythm, normal heart sounds, no murmur Abdomen: Soft, non tender, not distended, normal bowel sounds Neuro: Awake, alert, oriented, conversing well, non focal Extremities: No cyanosis, clubbing or edema Discharge Data Allergies Allergy/AdvReac Type Severity Reaction Status Date / Time latex Allergy Unknown RASH Verified 02/02/22 23:28 No Known Drug Allergies Allergy Unknown . Verified 02/02/22 23:28 Consultations 02/03/22 00:18 ED Decision to Admit Stat Ordered Studies 02/03/22 02:01 CT head/brain wo con Urgent Laboratory Results WBC 6.04 K/uL (4.8-10.8) 02/05/22 06:41 RBC 4.01 M/uL (4.2-5.4) L 02/05/22 06:41 Hgb 12.1 g/dL (12.0-16.0) 02/05/22 06:41 Hct 36.4 % (37-47) L 02/05/22 06:41 MCV 90.8 fL (80-100) 02/05/22 06:41 MCH 30.2 pg (25-34) 02/05/22 06:41 MCHC 33.2 g/dL (32-36) 02/05/22 06:41 RDW Std Deviation 48.4 fL (36.4-46.3) H 02/05/22 06:41 RDW Coeff of Ruddy 14.4 % (11.5-14.5) 02/05/22 06:41 Plt Count 220 K/uL (130-400) 02/05/22 06:41 MPV 9.6 fL (7.4-10.4) 02/05/22 06:41 Immature Gran % (Auto) 0.3 % 02/03/22 06:14 Neut % (Auto) 58.4 % 02/03/22 06:14 Lymph % (Auto) 23.6 % 02/03/22 06:14 Baker % (Auto) 14.4 % 02/03/22 06:14 Eos % (Auto) 3.1 % 02/03/22 06:14 Baso % (Auto) 0.2 % 02/03/22 06:14 Neut # (Auto) 3.37 K/uL (1.4-6.5) 02/03/22 06:14 Lymph # (Auto) 1.36 K/uL (1.2-3.4) 02/03/22 06:14 Baker # (Auto) 0.83 K/uL (0.11-0.59) H 02/03/22 06:14 Eos # (Auto) 0.18 K/uL (0-0.5) 02/03/22 06:14 Baso # (Auto) 0.01 K/uL (0-0.2) 02/03/22 06:14 Immature Gran # (Auto) 0.02 K/uL (0.00-0.02) 02/03/22 06:14 PT 10.8 Seconds (9.0-12.0) 02/02/22 22:33 INR 1.0 (0.9-1.1) 02/02/22 22:33 APTT 26.7 Seconds (21.0-31.0) 02/02/22 22:33 PTT Ratio 1.0 02/02/22 22:33 Sodium 138 mmol/L (136-145) 02/05/22 06:41 Potassium 4.3 mmol/L (3.5-5.1) 02/05/22 06:41 Chloride 103 mmol/L (98-107) 02/05/22 06:41 Carbon Dioxide 30 mmol/L (21-32) 02/05/22 06:41 Anion Gap 5 (3-11) 02/05/22 06:41 BUN 28 mg/dl (6-23) H 02/05/22 06:41 Creatinine 1.06 mg/dl (0.6-1.2) 02/05/22 06:41 Est Cr Clr Drug Dosing 44.2 ml/min 02/05/22 06:41 Est GFR ( Amer) 60.3 ml/min 02/05/22 06:41 Est GFR (Non-Af Amer) 52.0 ml/min 02/05/22 06:41 BUN/Creatinine Ratio 26.4 (10-20) H 02/05/22 06:41 Glucose 85 mg/dl (70-99(Fasting)) 02/05/22 06:41 Lactate 0.8 mmol/L (0.4-2.0) 02/02/22 22:46 Calcium 9.5 mg/dl (8.5-10.1) 02/05/22 06:41 Magnesium 1.9 mg/dl (1.7-2.4) 02/02/22 22:33 Total Bilirubin 0.7 mg/dl (0.2-1.0) 02/02/22 22:33 AST 28 U/L (13-39) 02/02/22 22:33 ALT 20 U/L (7-52) 02/02/22 22:33 Alkaline Phosphatase 81 U/L (34-104) 02/02/22 22:33 Total Protein 7.2 gm/dl (6.0-8.3) 02/02/22 22:33 Albumin 4.1 gm/dl (3.4-5.0) 02/02/22 22:33 Globulin 3.1 gm/dl (2.5-4.0) 02/02/22 22:33 Albumin/Globulin Ratio 1.3 (0.9-2) 02/02/22 22:33 Procalcitonin < 0.05 ng/ml (0-0.5) 02/02/22 22:33 Urine Color Yellow 02/02/22 22:32 Urine Appearance Clear (Clear) 02/02/22 22:32 Urine pH 5.5 (4.5-7.5) 02/02/22 22:32 Ur Specific [place] 1.021 (1.000-1.030) 02/02/22 22:32 Urine Protein Negative (Negative) 02/02/22 22:32 Urine Glucose (UA) Negative (Negative) 02/02/22 22:32 Urine Ketones Negative (Negative) 02/02/22 22:32 Urine Blood 2+ (Negative) H 02/02/22 22:32 Urine Nitrite Positive (Negative) A 02/02/22 22:32 Urine Bilirubin Negative (Negative) 02/02/22 22:32 Urine Urobilinogen Negative (Negative) 02/02/22 22:32 Ur Leukocyte Esterase 1+ (Negative) H 02/02/22 22:32 Urine WBC (Auto) 10-30 /hpf (0-5) H 02/02/22 22:32 Urine RBC (Auto) 0-4 /hpf (0-4) 02/02/22 22:32 U Hyaline Cast (Auto) 1-5 /lpf (0-5) 02/02/22 22:32 U Epithel Cells (Auto) 5-10 /lpf (0-5) H 02/02/22 22:32 Urine Bacteria (Auto) 4+ (Negative) H 02/02/22 22:32 SARS-CoV-2 (PCR) NEGATIVE (Negative) 02/02/22 23:04 Influenza Type A (PCR) Negative (Neg) 02/02/22 23:04 Influenza Type B (PCR) Negative (Neg) 02/02/22 23:04 RSV (RT-PCR) Negative (Neg) 02/02/22 23:04 Impressions Chest X-Ray 02/02/22 22:36 XR chest 1V portable CLINICAL HISTORY: SEPSIS. COMPARISON STUDY: 11/10/2021 TECHNIQUE: 1 view of the chest FINDINGS: Single frontal view of the chest demonstrates the cardiomediastinal silhouette to be within normal limits. The lungs are clear of alveolar opacities. There is no evidence for pleural effusion. There is no evidence for vascular congestion. There is no acute osseous pathology. IMPRESSION: 1. No acute cardiopulmonary disease. ACT 112: Negative or not required by law. Electronically signed by: Ruben Toney M.D. 02/03/2022 7:[address] 02/03/22 02:01 CT head/brain wo con CLINICAL HISTORY: ams and confusion COMPARISON STUDY: 11/10/2021 CT DOSE: 614.27 mGy.cm TECHNIQUE: Standard CT of the Brain was performed without IV contrast. A dose lowering technique was utilized adhering to the principles of ALARA. FINDINGS: Extraaxial space: Compared to previous examination, there has been interval res olution of small parafalcine subdural hematoma. There is slight residual increased attenuation is seen along the falx anteriorly on the left which is unchanged and is most likely chronic. There is no edema or midline shift. There are no extra-axial fluid collections. Ventricles and cisterns: The ventricles are mildly dilated bilaterally. There is no evidence for midline shift or mass effect. Parenchyma: There is no subarachnoid or intraparenchymal hemorrhage. There is no evidence for an acute infarct or cerebral edema. Old lacunar infarct is again seen on the left. There is mild cerebral cortical atrophy and decreased attenuation in the periventricular white matter representing remote small vessel disease. There are no gross mass lesions. Osseous structures: There is no evidence for an acute fracture. There is again asymmetric coastal thickening involving the right maxillary antrum. The remaining visualized paranasal sinuses are clear. There is again asymmetric opacification of the mastoid air cells on the left when compared to the right. Soft tissues: There is no evidence for focal soft tissue swelling. IMPRESSION: 1. No acute intracerebral pathology. 2. Interval resolution of small parafalcine subdural hematoma. 3. Slight residual increased attenuation is seen along the falx anteriorly on the left which is unchanged and most likely chronic. 4. Cerebral cortical atrophy and extensive remote small vessel disease. 5. Mild chronic right maxillary sinusitis and opacification of the left mastoid air cells are again seen. ACT 112: Negative or not required by law. Electronically signed by: Ruben Toney M.D. 02/03/2022 7:48 AM Hospital Course (1) E. coli UTI: E coli UTI- Urine clx with E coli pansensitive- S/p cefepime->ceftriaxone, changed to vantin for 3 more days to complete antibiotic course. ?bronchitis- has chronic cough for years, slightly worsened for few weeks now, CXR without PNA- started on empiric doxy on admission- will continue at discharge for 3 more days. Continue mucinex. H/o CVAx3- - on ASA, statin. H/o traumatic ICH 11/10/21 with small parafalcine SDH and diffuse tSAH - CT head shows resolution of hematoma Seen by neurosurg 01/19 Valvular heart disease- Eco 01/26/22 with EF 61%, grade 2 diastolic dysfunction, severely calcified aortic valve with severe , moderate AR, mild TR- maintain euvolemic status. Caution with excess IVF. OP cardio follow up Hypothyroidism- TSH normal. on sythroid history of ALL status post bone marrow transplantation, in remission ?Delirium on admission in setting of UTI and dementia- resolved. Discussed discharge instructions with cindy Nicole over the phone. Also spoke again about cardio follow up as OP due to severe in recent echo. Seen by PT and cleared for discharge home. He denies any needs. Total Time Total Time Spent Total Time Spent (In Minutes): 40 Discharge Plan Discharge Items Patient Disposition: Home - Self-Care Reason For Visit: AMS, COMP UTI Discharge Diagnosis: UTI Activity: Resume your previous activity Non-emergency contact: Primary Care Provider Call non-emergency contact if: you have any medication questions Follow-up/Referrals: Max Pendleton, [Primary Care Provider] - Diet: Regular Addtl Attending Provider Instructions: Start the antibiotic vantin twice daily for 3 more days starting tomorrow Hold your iron, calcium and magnesium pills until the antibiotic is done. Follow up with the family doctor. Pending Studies at Discharge: No Stand-Alone Forms: My [employer], Smoking Cessation Medications and DC Order Prescriptions: New doxycycline hyclate 100 mg Capsule 100 mg PO BID Qty: 6 RF: 0 cefpodoxime 200 mg tablet 200 mg PO BID Qty: 6 RF: 0 Continued levothyroxine 50 mcg tablet 50 mcg PO DAILYBB RF: 0 omega 2-hfl-gou-fish oil [Fish Oil] 1,000 mg (120 mg-180 mg) Capsule 1 cap PO QAM RF: 0 ferrous sulfate 325 mg (65 mg iron) Tablet 325 mg PO DAILY RF: 0 atorvastatin 40 mg tablet 40 mg PO DAILY RF: 0 pantoprazole 40 mg tablet,delayed release (DR/EC) 40 mg PO DAILY RF: 0 calcium carbonate 500 mg calcium (1,250 mg) Tablet 500 mg PO DAILY RF: 0 aspirin 81 mg Tablet,Chewable 81 mg PO DAILY RF: 0 multivitamin Tablet 1 tab PO QAM RF: 0 docusate sodium 100 mg Tablet 100 mg PO BID RF: 0 loratadine [Claritin] 10 mg Tablet 10 mg PO QAM RF: 0 guaifenesin [Mucinex] 600 mg Tablet Extended Release 12hr 600 mg PO Q12 Qty: 14 RF: 0 Discharge Orders: Discharge Order (Routine); Ordered 02/05/22 Ordered By: Srini Chang/Other Patient Handouts: Urinary Tract Infections in Women Admission Data Admit Date/Time: 02/03/22 02:04 Attending Provider: Srini Ovalle Admit Provider: Anhtony Mayers Primary Care Provider: Max Pendleton Other Providers: Anthony Mayers Other Interventions: Discharge Summary Assessment (RN) Last Done: 02/05/22 09:29
[2022-02-05] MEDS: FERROUS SULFATE 325 MG TAB PO SCH (14:32)
== END 2022-02-05 16:50 | disposition home or self-care (01) | DRG 690 ==
LOC: ED 22:02 → 2N 02-03 02:04 → SUATTDRO 02-03 02:04 → 2N 02-03 02:52